=== PATIENT | female | born 1970 | race African-American/Black ===

== ENCOUNTER 2022-03-07 10:27 | Emergency (ER) | payer OTHER, SELFPAY ==
[2022-03-07 10:47] VITALS: BP 166/103; PULSE 99; RESP 16; TEMP 36.5; O2SAT 98; BMI 41.0
--- NOTE | 2022-03-07 11:12 | CRLHL7_ITS ---
For Patients: As a result of the Century Cures Act, medical imaging exams and procedure reports are released immediately into your electronic medical record. You may view this report before your referring provider. If you have questions, please contact your health care provider. INDICATION: Low-back pain. TECHNIQUE: Lumbar spine 3 view COMPARISON: Lumbar spine radiographs from 11/02/2020. FINDINGS: Bones: Alignment is normal. No fractures or significant bone lesions. Joints: Disc spaces and facets are unremarkable. Soft tissues: Unremarkable. IMPRESSION: Unremarkable lumbar spine. Dictated by Quinn Whitfield MD @ 03/07/2022 12:45:21 PM (Electronically Signed)
--- OUTSIDE RECORDS SUMMARY | 2022-03-07 11:20 | XMS_ITS | Encounter Summary ---
:1970 Author Organization [facility] Address [address] [place] [address] Care Team Providers Name Role Phone Chirag Metzger PA-C Primary Care Provider Reason for Visit Reason Comments PHONE CALL TO PATIENT Encounter Details Date Type Department Care Team Description 02/14/[address] [facility] [address], PHON E CALL TO PATIENT Rheumatology [facility] [address] [place] [address] [id number] (Wo rk) Social History Tobacco Use Types Packs/Day Years Used Date Smoking Tobacco: Never Smokeless Tobacco: Never Alcohol Use Standard Drinks/Week Comments Yes 3 (1 standard drink = 0.6 oz pure alcoho l) Sex Assigned at Date Recorded Not on file documented as of this encounter Nursing Notes Dafne Spangler LPN - 02/14/2019 10:04 AM CDT Patient called back and she wants to keep her appointment today with Zaira. Dafne Spangler LPN - 02/14/2019 9:16 AM CDT Left message to call back. Tracie Mukherjee, RN - 02/14/2019 8:56 AM CDT Left message for patient to call back, regarding appointment this afternoon in [place]. Please see letter written 02/13/[address] Lind documented in this encounter Plan of Treatment Not on filedocumented as of this encounter Visit Diagnoses Not on filedocumented in this encounter Care Teams Supervisor Chlorine Liquefaction Relationship Specialty Start Date End Date Chirag Metzger PA-C PCP - General Physician Utility System Repairer 07/06/[address] [place] [id number] documented as of this encounter
--- OUTSIDE RECORDS SUMMARY | 2022-03-07 11:20 | XMS_ITS | Clinical Summary ---
:1970 Author Organization [facility] Address [address] [place] [address] Care Team Providers Name Role Phone Chirag Metzger PA-C Primary Care Provider Source Comments You are receiving this document as you are listed as the primary care provider,follow-up provider, or the patient has been referred to you for consultation.This is in compliance with the Medicare and Medicaid EHR Incentive Program,which states Providers who transition their patient to another setting of careor provider of care or refers their patient to another provider of care shouldprovide summarycare record for each transition of care or referral. [x+1] Allergies No known active allergies Medications Medication Sig Dispensed Refills Start Date End Date Status hydrochlorothiazide 12.5 Indications: 2 07/07/2015 Active MG capsuleIndications: PN: CHASIDY UMAÑA CARRIE J Wed Mar CARRIE J Sun 10:44 AM Jul 21, 2015 Received from: External 10:44 AM Pharmacy Received from: External Pharmacy latanoprost (XALATAN) 1 Drop every 0 Active 0.005 % eye drop evening. solution COMBIGAN 0.2-0.5 % eye 99 09/01/2018 Active drop solution DULoxetine (CYMBALTA) 20 Take 2 Capsules 60 Capsule 0 02/15/20 19 Active MG capsuleIndications: by mouth daily. Chronic pain of left knee celecoxib (CELEBREX) 100 Take 1 Capsule 180 Capsule 0 02/15/20 19 Active MG capsule by mouth two times a day. lisinopril (ZESTRIL) 10 take one tablet 0 01/21/2021 Active MG tablet (10 MG) by mouth DAILY Take 1 tab in addition to already prescribed 10 mg; for a total of 30 mg per day cyclobenzaprine Take 10 mg by 0 01/21/2021 Active (FLEXERIL) 10 MG tablet mouth two times daily as needed. lidocaine (LIDODERM) 5 % Apply 1 Patch 0 02/16/2021 Active patch to skin daily. Leave on for up to 12 hours in a 24 hour period, then remove. gabapentin (NEURONTIN) Take 2 Capsules 540 Capsule 3 1 Active 300 MG capsule by mouth three times a day. Active Problems Problem Noted Date Chronic pain syndrome 10/23/2018 Fibromyalgia 10/23/2018 Chronic pain of left knee 10/23/2018 Low back pain, non-specific 10/26/2017 Segmental and somatic dysfunction of cervical region 0 07/14/2016 Segmental and somatic dysfunction of thoracic region 0 07/14/2016 Segmental and somatic dysfunction of sacral region Cervicalgia 07/14/2016 Pain in thoracic spine 07/14/2016 Endometriosis 07/06/2016 Primary open angle glaucoma of both eyes, mild stage 0 07/06/2016 Spasm of back muscles 04/03/2016 Obese 09/17/2013 Overview: Currently working with obesity clinic. Migraine, chronic, without aura, intractable, with sta tus migrainosus 09/20/2012 Last Assessment & Plan: Formatting of th is note might be different from the original. She has had a typical migraine, symptom- cole, but it has lasted since 01/23/2014. Does get better, but will recur within 24 hours when it goes away. She has a tightness across the top of her head and into her forehead, nausea, and light sensiti vity. She was seen at [facility] on 01/28/2014, and was given a shot of Toradol and an oral dose of ondansetron in the clinic. The ondansetron helped. Melissa edwards was discharged with Percocet and Predn isone. She took 1 dose of each, but stopped both because of increased nausea with the Percocet, and because she didn't understand the purpose of the Prednisone. S aj then, she has been resting as much as possible, wearing sunglasses to prevent glare, and taking her rizatriptan. Syncope, psychogenic Overview: stress reaction Last Assessment & Plan: Several years ago, she had pre-syncopal episodes that were concerning initially for stroke. She was admitted to the hospital and had lengthy and thorough neurologic exam. All was normal, and it was even tually determined that this was a stress reaction. She was medicated for stress and anxiety, and the episodes resolved completely. She has since weaned herself off the medications, and has not had recur rence. She has been certified to work on [employer] part-time due to this condition, and has paperwork from her previous clinic regarding this. She is currently unemployed, but looking for part-time work. Resolved Problems Problem Noted Date Resolved Date Pain in thoracic spine 07/14/2016 07/14/2016 Low back pain 07/14/2016 10/26/2017 Segmental and somatic dysfunction of cervical region 016 07/14/2016 Segmental and somatic dysfunction of thoracic region 016 07/14/2016 Segmental and somatic dysfunction of sacral region 6 07/14/2016 Cervicalgia 04/03/2016 07/14/2016 Headache 09/10/2015 04/03/2016 Cervical (neck) region somatic dysfunction 10/19/2014 04/03/2016 Overview: Epic Nonallopathic lesion of thoracic region 10/19/2014 04/03/2016 Overview: Epic Somatic dysfunction of sacral region 10/19/2014 Overview: Epic Cervicalgia 10/19/2014 04/03/2016 Spasm of muscle 10/19/2014 04/03/2016 Sprain of sacrum 08/12/2014 10/19/2014 Sprain of thoracic region 08/12/2014 10/19/2014 Sprain of neck 08/12/2014 10/19/2014 Nonallopathic lesion of thoracic region 02/20/2012 10/19/2014 Overview: Epic Nonallopathic lesion of cervical region 02/20/2012 10/19/2014 Overview: Epic ; Other nonallopathic lesion of cer vical region Spasm of muscle 02/20/2012 10/19/2014 Sciatica 02/20/2012 08/21/2012 Sciatica 12/07/2011 02/20/2012 Spasm of muscle 12/07/2011 02/20/2012 Nonallopathic lesion of sacral region 10/31/2011 Overview: Epic Sciatica 10/31/2011 12/07/2011 Spasm of muscle 10/31/2011 12/07/2011 Fibroid uterus 11/04/2014 Overview: s/p hysterectomy 2006 Immunizations Name Administration Dates Next Due Flu Vac (3+ yrs) 04/10/2000 Influenza IIV4 (Quadrivalent) 0.5mL 04/05/2017, 03/02/2015, 02/02/2015, ([id number]) 03/20/2014 Influenza, Unspecified Formulation 04/14/2016 (Deferred: Oth er), 03/04/2013 MMR 05/30/2013, 03/04/2013 Pfizer (Comirnaty) COVID-19, 12+ Yrs 06/22/2020, 06/01/2020 Purple Top TDAP (ADACEL) 08/17/2011 Td 05/20/1995 Tdap 08/17/2011 Family History Medical History Relation Name Comments Lupus Father Glaucoma Mother borderline Lupus Brother Lupus Sister 1 Rheumatoid arthritis Sister 1 Thyroid Disorder Sister 3 hypothyroidism Cancer Negative Family History Cancer, Colon Negative Family History Cancer, Endometrial Negative Family History Diethylstilbestrol Exposure Negative Family History Relation Name Status Comments Father Alive Mother Alive Brother Maternal Grandfather Maternal Grandmother Paternal Grandfather Paternal Grandmother Sister 1 Alive Sister 2 Alive Sister 3 Alive Social History Tobacco Use Types Packs/Day Years Used Date Smoking Tobacco: Never Smokeless Tobacco: Never Alcohol Use Standard Drinks/Week Comments Yes 3 (1 standard drink = 0.6 oz pure alcoho l) Sex Assigned at Date Recorded Not on file Last Filed Vital Signs Vital Sign Reading Time Taken Comments Blood Pressure 137/73 02/14/2019 3:53 PM CDT Pulse 74 02/14/2019 3:53 PM CDT Temperature 36.8 ??C (98.2 ??F) 11/26/2013 3:49 PM CDT Respiratory Rate 16 11/26/2013 3:49 PM CDT Oxygen Saturation 99% 11/26/2013 3:49 PM CDT Inhaled Oxygen Concentration - - Weight 96.2 kg (212 lb) 02/14/2019 3:53 PM CDT Height 156.2 cm (5' 1.5) 07/06/2016 8:17 AM CRAFT DEMONSTRATOR Body Mass Index 39.41 07/06/2016 8:17 AM CRAFT DEMONSTRATOR Plan of Treatment Health Maintenance Due Date Last Done Comments Colonoscopy 1970 Hep C Screening (Preventive 1970 Services) HepB (1) 1970 HIV Screening (Preventive 1985 Services) Adult Preventive Visit 03/06/2019 03/06/2018, 07/06/2016, 12/19/2000, Additional history exists Zoster/Shingles (1 of 2) 2019 Mammogram 03/20/2019 03/20/2018, 02/21/2017, 02/02/2016, Additional history exists COVID-19 Vaccine (3 - 08/17/2020 06/22/2020, 06/01/2020 Booster for Pfizer series) Pap 03/06/2021 03/06/2018, 01/13/2015, 02/13/2013, Additional history exists DTaP/Tdap/Td (2 - Tdap) 08/16/2021 08/17/2011, 08/17/2011, 05/20/1995 Influenza (#1) 2022 04/05/2017, 03/02/2015, 02/02/2015, Additional history exists Cholesterol 03/06/2023 03/06/2018, 07/06/2016, 01/13/2015, Additional history exists HepA Aged Out No longer eligib le based on patient 's age to complete this topic Hib Aged Out No longer eligib le based on patient 's age to complete this topic IPV (Polio) Aged Out No longer eligib le based on patient 's age to complete this topic MCV4 Aged Out No longer eligib le based on patient 's age to complete this topic Pneumococcal Aged Out No longer eligib le based on patient 's age to complete this topic Insurance Payer Benefit Plan / Subscriber ID Effective Phone Address T ype Group Dates PREFERREDONE PREFERREDONE [id number] 2015-[facility] [phone] OPEN ACCESS ent [id number] [address]BDI [place] [address] [place] Personal/Family Self [address] (Home) W [phone] [place] (Work) [phone] Yesika Wardnda Workers Comp Self [id number] (Home) [place] [address] [place] Non-Covered/Pre Self [phone] (Home) [place] [address] Care Teams Hospice Educator Relationship Specialty Start Date End Date Chirag Metzger PA-C PCP - General Physician Health Lead 07/06/16 [address] [place] [address]
--- OUTSIDE RECORDS SUMMARY | 2022-03-07 11:20 | XMS_ITS | Encounter Summary ---
:1970 Author Organization [employer] Address [address] [place] [address] Care Team Providers Name Role Phone Chirag Metzger PA-C Primary Care Provider Reason for Visit Procedure/Equipment (Routine) - Incomplete Specialty Diagnoses / Procedures Referred By Contact Refer red To Contact Diagnoses Visit for screening mammogram Simona Mendez PA-C Procedures MM Mammogram Screening Bilat [address] CAD [address] [place] [address] Referral ID Status Reason Start Date Expiration Date Visits V isits Requested Authorized [id number] Incomplete 12/04/2018 03/04/2020 1 1 Encounter Details Date Type Department Care Team Description 03/28/2019 Ancillary Procedure [facility]essa, Visit fo r screening Mammography Services Simona Redmond PA-C mammogram [address] [place] [address] W [phone] [place] [address] Social History Tobacco Use Types Packs/Day Years Used Date Smoking Tobacco: Never Smokeless Tobacco: Never Alcohol Use Standard Drinks/Week Comments Yes 3 (1 standard drink = 0.6 oz pure alcoho l) Sex Assigned at Date Recorded Not on file documented as of this encounter Plan of Treatment Not on filedocumented as of this encounter Visit Diagnoses Diagnosis Visit for screening mammogram Other screening mammogram documented in this encounter Care Teams Pilot Teacher Relationship Specialty Start Date End Date Chirag Metzger PA-C PCP - General Physician Orthodontic Assistant 07/06/16 [address] [place], [place] [address] documented as of this encounter
--- OUTSIDE RECORDS SUMMARY | 2022-03-07 11:20 | XMS_ITS | Encounter Summary ---
:1970 Author Organization [employer] Address [address] [place] [address] Care Team Providers Name Role Phone Chirag Metzger PA-C Primary Care Provider Reason for Referral (Routine) - New Request Specialty Diagnoses / Procedures Referred By Contact Refer red To Contact Diagnoses Effusion of right knee Bob Lind MD Procedures Triamcinolone Acet Inj Nos: (per 10 mg) [address] [place], [place] [address] Referral ID Status Reason Start Date Expiration Date Visits V isits Requested Authorized [id number] New Request 02/16/2021 05/18/2022 1 1 Procedure/Equipment (Routine) - Incomplete Specialty Diagnoses / Procedures Referred By Contact Refer red To Contact Diagnoses Effusion of right knee Bilateral chronic knee pain Bob Lind MD Procedures MR Knee Rt WO IV Cont [address] [place], [place] [address] Referral ID Status Reason Start Date Expiration Date Visits V isits Requested Authorized [id number] Incomplete 02/16/2021 08/15/2021 1 1 Procedure/Equipment (Routine) - Incomplete Specialty Diagnoses / Procedures Referred By Contact Refer red To Contact Diagnoses Bilateral chronic knee pain Bob Lind MD Procedures MR Knee Lt WO IV Cont [address] [facility] [place], [place] [address] Referral ID Status Reason Start Date Expiration Date Visits V isits Requested Authorized [id number] Incomplete 02/16/2021 08/15/2021 1 1 Reason for Visit Reason Comments Follow-up Encounter Details Date Type Department Care Team Description 02/16/2021 Office Visit [facility] Bob Lind M D Effusion of right knee (Primary Dx); Rheumatology [address] [facility] Bilateral chronic knee pain; [address] [facility] Fibromyalgia; [place] [address] [place], [place] FELIPE positive; [phone] Elevated C-reactive protein (CRP) [phone] (Wo rk) Social History Tobacco Use Types Packs/Day Years Used Date Smoking Tobacco: Never Smokeless Tobacco: Never Alcohol Use Standard Drinks/Week Comments Yes 3 (1 standard drink = 0.6 oz pure alcoho l) Sex Assigned at Date Recorded Not on file documented as of this encounter Patient Instructions Patient InstructionsBob Lind MD - 02/16/2021 12:15 PM CDT The fluid from the right knee is clear - meaning you can read through it. I will send it for cellcount and crystals, we determine # of white blood cells/uL in the fluid. < 2000 WBC/uL = NOT inflamed; I suspect yours will be < 500. Lupus or other rheumatic disease would be > 2000 WBC/uL. The outside labs show weak positive FELIPE, but all the confirmatory lupus tests are negative; I don't think you have lupus or similar disease; common to see FELIPE positive in relatives of people with lupus. Clear non-inflammatory fluid suggests some wear and process in the knee; Could be cartilage wear = osteoarthritis; could be meniscus tear; MRI should show. If some mild osteoarthritis, treatment is celebrex, cortisone max every 3 months, and lower impact exercise. If meniscus tear, may need surgery. documented in this encounter Progress Notes Bob Lind MD - 02/16/2021 12:15 PM CDT RHEUMATOLOGY RECHECK This note was generated with voice activated career center advisor software and may contain typographical and word substitution errors. CC: Knee issues, right greater than left knee pain, possible swelling right knee HPI: I had seen her in October,. She was felt to have fibromyalgia and chronic left knee pain following surgery. I did not feel she had an underlying rheumatic disease or inflammatory condition, FELIPE, rheumatoid factor, CRP were all normal. She had chronic left knee pain following surgery to remove a ganglion. Shewas on gabapentin and analgesics, I suggested possibly trying Cymbalta. I also recommended followingup with [facility], she was on opioids at the time. There was a history of an arthroscopy on the left knee in the past done because of periarticular ganglion cyst. She had background history of mechanical back pain, left shoulder impingement. Fluid had been aspirated from the knee and was straw-colored. Her primary care I believe was at [facility], Simona Mendez PA-C. The patient brought with her some records, to was an office note from February 03, she was seen in urgent care with right knee swelling in the suprapatellar area started about 2 weeks prior. She hadsimilar symptoms in the past on the left knee. She is on Cymbalta, Celebrex, gabapentin.. The nurse practitioner who saw her in urgent care was worried about possible autoimmune etiology, felt there was some swelling along the suprapatellar aspect, gave her a Medrol Dosepak. She had a similar urgent care visit in October with bilateral knee pain and some right leg sciatica, was given Medrol Dosepak at that time as well. Laboratory testing done February 03, 2021 shows sedimentation rate of 10, normal CBC, C reactive protein mildly elevated at 1.8 with normal less than 1, vitamin-D slightly low at 28. ALT, AST, creatinine were normal, rheumatoid factor was negative, she had a low titer FELIPE 1:16 a.m. 0, speckle pattern, SSA, Nguyen, Scl 70, chromatin antibody, MEDICAL DETAIL REPRESENTATIVE, double-stranded DNA were all negative. By her report, x-rays were done at urgent care apparently read as negative. We further reviewed her history. Going on for a few weeks, she has had pain in the right knee, it feels somewhat tight, slightly hard to flex. She can get sharp pains with certain bending movements or pivoting. The knee has not given way. She has not had fevers or chills. She indicates Medrol Dosepakshave helped maybe 50%. She does have a sister and brother who have lupus, sounds like cutaneous manifestations. 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 FH: Has a sister and brother with lupus (cutaneous, alopecia). PMH: Updated in EMR MEDS: Updated in EMR but notable for: Duloxetine, gabapentin, oxycodone ADR/ALLERGIES: Updated in EMR PAIN/RAPID3: OBJECTIVE: VS: Per flow sheet. General: NAD. Eyes: Externally clear. Chest: CTA Heart: RRR, no m/r/g Musculoskeletal: All 4 limbs are examined. No visibly swollen or tender joints over the hands wristselbows shoulders hips. She had a ballotable patella on the right. She had mild discomfort with rangeof motion the right knee, slight warmth on the right knee compared to the left. No obvious ligamentous instability. Ankles and feet were unremarkable. She did have a number of myofascial tender points,left lateral epicondyle, rhomboid muscles, gluteal muscles, left medial knee ASSESSMENT: 1: History of fibromyalgia 2: History of left knee pain following arthroscopy for ganglion cyst 3: Subacute right knee pain with mild swelling 4: Mildly positive FELIPE but negative extractable nuclear antigens and double- stranded DNA antibody 5: Mildly elevated C reactive protein (likely related to obesity), normal sed rate PLAN: 1: Discussed with the patient. She has a complex history of knee pain and several years ago etiologyof her left knee pain was undetermined, MRI was negative 2: She has concern about autoimmune etiology of her knee pain given several family members with lupus. She does have a positive FELIPE but her confirmatory tests are all negative. The mildly elevated C reactive protein is likely from obesity and a normal sedimentation rate is reassuring. 3: She did appear to have a right knee effusion. I suggested aspiration and injection. She was willing to proceed and after verbal consent sterile prep, the right knee was anesthetized with 1% lidocaine. I then placed a 20 gauge needle into the joint and I was able aspirate 10 cc of yellow clear synovial fluid. I sent this for cell count, crystals and Lyme PCR. Lyme disease is felt to be very unlikely given the unclear nature of the fluid. I explained the patient that if the white cell count on the fluid is less than 2000 her microliter, that would suggest noninflammatory process and the clarity ofthe fluid would suggest this is likely to be the case. I will send the patient a letter with the fluid results. While I had the needle in the joint, I did inject 60 mg of triamcinolone hopefully for some symptomatic relief. 4: Ultimately, I suspect the knee fluid is related to some degenerative process in her right knee, could be early osteoarthritis or meniscal tear. I have given her orders for MRI of the knees. She feels she may need to do these through [facility]. By her report x-rays were negative and [facility]. I put my fax number on the MRI requests so I can receive a report. If degenerative process is confirmed, the patient would be asked to follow-up with orthopedics and she would probably do that through [facility]. Simona Mendez PA-C, [facility] [place]. Total time 45 minutes, excluding time for aspiration and injection of right knee. documented in this encounter Plan of Treatment Not on filedocumented as of this encounter Procedures Procedure Name Priority Date/Time Associated Comments Diagnosis BODY FLUID CELL COUNT Routine 02/16/2021 1:02 PM Effusion of r ight Results for this AND DIFFERENTIAL CDT knee procedure a re in the results section. BODY FLUID, Routine 02/16/2021 1:02 PM Effusion of right Resu lts for this DIFFERENTIAL CDT knee procedure are i n the results section. BORRELIA BURGDORFERI Routine 02/16/2021 1:02 PM Effusion of ri ght Results for this (LYME DISEASE) CDT knee procedure are in the results section. CRYSTALS,SYNOVIAL Routine 02/16/2021 1:02 PM Effusion of right Results for this CDT knee procedure are i n the results section. CELL COUNT & DIFF, Routine 02/16/2021 1:02 PM Effusion of righ t Results for this BODY FLUID CDT knee procedure are i n the results section. documented in this encounter Results Body Fluid, Differential (02/16/2021 1:02 PM CDT) P athologist Signature Body Fluid 1 % 02/16/2021 [facility] Neutrophils % 6:13 PM CDT LABORATORY Body Fluid 85 % 02/16/2021 [facility] Lymphocytes % 6:13 PM CDT LABORATORY Body Fluid 14 % 02/16/2021 [facility] Mononuclear 6:13 PM CDT LABORATORY Cells % TOTAL CELLS 100 02/16/2021 [facility] COUNTED IN BODY 6:13 PM CDT LABORATORY FLUID Specimen Anatomical Collection Method Collection Time Receive d Time (Source) Location / / Volume Laterality Synovial Fluid ENTIRE KNEE REGION 02/16/2021 1:02 PM 0 02/16/2021 1:38 / Unknown CDT PM CDT Bob Lind MD LAB_1 Performing Organization Address City/[facility] Phon e Number [facility] [address] [place] [address] (ABNORMAL) Cell Count, Body Fluid (02/16/2021 1:02 PM CDT) Patholo gist Method Time Signature Body Fluid Synovial 02/16/2021 [facility] Type Fluid 6:13 PM CDT LABORATORY BF Source Knee, right 02/16/2021 [facility] 6:13 PM CDT LABORATORY Body Fluid Clear Clear 02/16/2021 [facility] Appearance 6:13 PM CDT LABORATORY Body Fluid RBC <=2,000 /uL 02/16/2021 [facility] 6:13 PM CDT LABORATORY Comment: The reference interval is unava ilable for this body fluid. Comparison of the result with concentration in the blood i s recommended. Body Fluid WBC 483 (H) 0 - 200 /ul 02/16/2021 6:13 PM CDT [facility] Specimen Anatomical Collection Method Collection Time Receive d Time (Source) Location / / Volume Laterality Synovial Fluid ENTIRE KNEE REGION 02/16/2021 1:02 PM 0 02/16/2021 1:38 / Unknown CDT PM CDT Bob Lind MD LAB_1 Performing Organization Address City/[facility] Code Phon e Number [facility] [address] [place] [address] LYPCR - Borrelia Burgdorferi (Lyme Disease) (02/16/2021 1:02 PM CDT) [facility] Method Time Signature Lyme By PCR Not Detected 02/19/2021 [facility] 11:23 AM CDT LABORATORIES Comment: NOT DETECTED - A negative result does no t rule out the presence of PCR inhibitors in the patien t specimen or assay specific nucleic acid in concentra tions below the level of detection by the assay. Blood and CSF specimens have poor clinic al sensitivity for detection of Borrelia burgdorferi by PCR . INTERPRETIVE INFORMATION: Borrelia Speci es DNA Detection by PCR This test was developed and its performa nce characteristics determined by [facility]. It has not been cleared or approved by the [place] Food and Drug Adminis tration. This test was performed in a CLIA certified laboratory and is intended for clinical purposes. Performed by [facility], [address] [place] [address] [email or web address], Lakeshia Mtz MD, [place] b. Director Lyme Source Synovial fluid 02/19/2021 11:23 AM CDT [facility] Specimen Anatomical Collection Method Collection Time Receive d Time (Source) Location / / Volume Laterality Synovial Fluid 02/16/2021 1:02 PM 021 1:38 CDT PM CDT Bob Lind MD LAB_1 Performing Organization Address City/[facility]/ZIP Code Phon e Number [facility] [address] [place], [place] [phone] SYCRY - Synovial Fluid Crystals (02/16/2021 1:02 PM CDT) [facility] Method Time Signature Synovial Knee, right 02/16/2021 [facility] Source 7:02 PM CDT LABORATORY Crystals, No Crystals No Crystals 02/16/2021 [facility] Synovial Seen Seen 7:02 PM CDT LABORATORY Specimen Anatomical Collection Method Collection Time Receive d Time (Source) Location / / Volume Laterality Synovial Fluid ENTIRE KNEE REGION 02/16/2021 1:02 PM 0 02/16/2021 1:38 / Unknown CDT PM CDT Bob Lind MD LAB_1 Performing Organization Address City/State/ZIP Code Phon e Number [facility] [address] [place] [address] documented in this encounter Visit Diagnoses Diagnosis Effusion of right knee - Primary Effusion of lower leg joint Bilateral chronic knee pain Pain in joint, lower leg Fibromyalgia Mylagia and myositis, unspecified FELIPE positive Other and unspecified nonspecific immuno logical findings Elevated C-reactive protein (CRP) documented in this encounter Care Teams Display Maker Relationship Specialty Start Date End Date Chirag Metzger PA-C PCP - General Physician Retail Client Manager 07/06/16 [address] [place] [phone] documented as of this encounter
--- OUTSIDE RECORDS SUMMARY | 2022-03-07 11:20 | XMS_ITS | Encounter Summary ---
:1970 Author Organization [employer] Address [address] [place] [address] Care Team Providers Name Role Phone Chirag Metzger PA-C Primary Care Provider Encounter Details Date Type Department Care Team Description 02/14/2019 Lab Visit [facility] Polyarthralgia [address] [place] [address] Social History Tobacco Use Types Packs/Day Years Used Date Smoking Tobacco: Never Smokeless Tobacco: Never Alcohol Use Standard Drinks/Week Comments Yes 3 (1 standard drink = 0.6 oz pure alcoho l) Sex Assigned at Date Recorded Not on file documented as of this encounter Plan of Treatment Not on filedocumented as of this encounter Procedures Procedure Name Priority Date/Time Associated Diagnosis Comme nts EXTRACTABLE NUCLEAR Routine 02/14/2019 4:59 PM Polyarthralgia Results for this ANTIGEN ANTIBODIES CDT procedure are in the results section. ANTI-CCP AB Routine 02/14/2019 4:59 PM Polyarthralgia Results for this CDT procedure are i n the results section. DNA DOUBLE STRANDED Routine 02/14/2019 4:59 PM Polyarthralgia Results for this ANTIBODY CDT procedure are i n the results section. C4 COMPLEMENT Routine 02/14/2019 4:59 PM Polyarthralgia Result s for this CDT procedure are i n the results section. C3 COMPLEMENT Routine 02/14/2019 4:59 PM Polyarthralgia Result s for this CDT procedure are i n the results section. documented in this encounter Results Extractable Nuclear Antigen Antibodies (02/14/2019 4:59 PM CDT) athologist Signature NGUYEN/SPEECH AND LANGUAGE ASSISTANT 1 0 - 40 02/16/2019 [facility] (AGUILA) Ab, IGG AU/mL 4:12 PM CDT LABORATORIES Comment: INTERPRETIVE INFORMATION: Nguyen/SPEECH AND LANGUAGE ASSISTANT (AGUILA ) Antibody, IgG ??29 AU/mL or Less ............. Negati ve ??30 - 40 AU/mL ................ Equivo zenaida ??41 AU/mL or Greater .......... Positi ve Nguyen/SPEECH AND LANGUAGE ASSISTANT antibodies are frequently seen in patients with mixed connective tissue disease (MCTD) and are also associated with other systemic autoimmune rheumatic dise ases (SARDs) such as systemic lupus erythematosus (SLE), syst emic sclerosis, and myositis. Antibodies targeting the Nguyen /SPEECH AND LANGUAGE ASSISTANT antigenic complex also recognize Nguyen antigens, therefore , the Nguyen antibody response must be considered when interpr eting these results. Performed by [facility], [address] [place] [address] [email or web address], Crow Duran MD, Lab. Director AGUILA To Nguyen (Sm) 0 0 - 40 AU/mL 02/16/2019 4:12 PM CDT [facility] Antibody Comment: INTERPRETIVE INFORMATION: Nguyen (AGUILA) An tibody, IgG ??29 AU/mL or Less ............. Negati ve ??30 - 40 AU/mL ................ Equivo zenaida ??41 AU/mL or Greater .......... Positi ve Nguyen antibody is highly specific (great er than 90 percent) for systemic lupus erythematosus (SLE) but o nly occurs in 30-35 percent of SLE cases. The presence of an tibodies to Nguyen has variable associations with SLE clinical manifestations. SSA -52 (RO52) ANTIBODY, 0 0 - 40 AU/mL 9 4:12 PM CDT [facility] IGG (AGUILA) Comment: INTERPRETIVE INFORMATION: SSA-52 (Ro52) (AGUILA) Antibody, IgG ??29 AU/mL or Less ............. Negati ve ??30 - 40 AU/mL ................ Equivo zenaida ??41 AU/mL or Greater .......... Positi ve SSA-52 (Ro52) and/or SSA-60 (Ro60) antib odies are associated with a diagnosis of Sjogren syndrome, systemi c lupus erythematosus (SLE), and systemic sclerosis. SSA-52 an tibody overlaps significantly with the major SSc-related antibodies. SSA-52 (Ro52) antibody occurs frequently in patients w ith inflammatory myopathies, often in the presence of int erstitial lung disease. SSB (La) Antibody, IgG 0 0 - 40 AU/mL 02/16/2019 4:1 2 PM CDT [facility] [facility] (AGUILA) Comment: INTERPRETIVE INFORMATION: SSB (La) (AGUILA) Ab, IgG ??29 AU/mL or Less ............. Negati ve ??30 - 40 AU/mL ................ Equivo zenaida ??41 AU/mL or Greater .......... Positi ve SSB (La) antibody is seen in 50-60% of S jogren syndrome cases and is specific if it is the only AGUILA antibo dy present. 15-25% of patients with systemic lupus erythematos us (SLE) and 5-10% of patients with progressive systemic scler osis (PSS) also have this antibody. SSA-60 (RO60) ANTIBODY, 0 0 - 40 AU/mL 02/16/2019 4:12 PM CDT [facility] IGG (AGUILA) Comment: REFERENCE INTERVAL: SSA-60 (Ro60) (AGUILA) Antibody, IgG ??29 AU/mL or Less ............. Negati ve ??30 - 40 AU/mL ................ Equivo zenaida ??41 AU/mL or Greater .......... Positi ve Specimen Anatomical Collection Method / Collection Time Recei steven Time (Source) Location / Volume Laterality Blood Venipuncture / 02/14/2019 4:59 02/14/2019 4:59 Unknown PM CDT PM CDT Zaira Ortiz PA-C LAB_1 Performing Organization Address City/State/ZIP Code Phon e Number [facility] [address] [place], [place] [id number] CCPIG - Cyclic Citrullinated Peptide AB (02/14/2019 4:59 PM CDT) [facility] Method Time Signature Anti-CCP Antibody 1 <7 U/mL 02/17/2019 [facility] 12:57 PM CENTRAL LAB CDT Anti-CCP Antibody Negative Negative 02/17/2019 [facility] Interpretation 12:57 PM CENTRAL LAB CDT Specimen Anatomical Collection Method / Collection Time Recei steven Time (Source) Location / Volume Laterality Blood Venipuncture / 02/14/2019 4:59 02/14/2019 4:59 Unknown PM CDT PM CDT Zaira Ortiz PA-C LAB_1 Performing Organization Address City/[facility]/ZIP Code Phon e Number [facility] CENTRAL LAB [address] [address] DNA - Anti-dsDNA Antibody (02/14/2019 4:59 PM CDT) [facility] Method Time Signature Anti-DNA Ab <1:10 <1:10 02/17/2019 [facility] 10:51 AM LABORATORY CDT Anti-DNA Antibody Negative Negative 02/17/2019 [facility] Interpretation 10:51 AM LABORATORY CDT Specimen Anatomical Collection Method / Collection Time Recei steven Time (Source) Location / Volume Laterality Blood Venipuncture / 02/14/2019 4:59 02/14/2019 4:59 Unknown PM CDT PM CDT Zaira Ortiz PA-C LAB_1 Performing Organization Address City/State/ZIP Code Phon e Number [facility] [address] [place] [address] C4 - C4 Complement (02/14/2019 4:59 PM CDT) athologist Signature C4 Complement 51.0 15.0 - 02/14/2019 [facility] 57.0 mg/dL 9:30 PM CDT LABORATORY Specimen Anatomical Collection Method / Collection Time Recei steven Time (Source) Location / Volume Laterality Blood Venipuncture / 02/14/2019 4:59 02/14/2019 4:59 Unknown PM CDT PM CDT Zaira Ortiz PA-C LAB_1 Performing Organization Address [facility] Phon e Number [facility] [address] [place] [address] C3 - C3 Complement (02/14/2019 4:59 PM CDT) P athologist Signature C3 Complement 158 83 - 193 02/14/2019 [facility] mg/dL 9:30 PM CDT LABORATORY Specimen Anatomical Collection Method / Collection Time Recei steven Time (Source) Location / Volume Laterality Blood Venipuncture / 02/14/2019 4:59 02/14/2019 4:59 Unknown PM CDT PM CDT Zaira Ortiz PA-C LAB_1 Performing Organization Address City/[facility] Phon e Number [facility] [address] [place] [address] documented in this encounter Visit Diagnoses Diagnosis Polyarthralgia Pain in joint, multiple sites documented in this encounter Care Teams Position Classification Specialist Relationship Specialty Start Date End Date Chirag Metzger PA-C PCP - General Physician [employer] Clerk 07/06/[address] [place] [address] documented as of this encounter
--- OUTSIDE RECORDS SUMMARY | 2022-03-07 11:20 | XMS_ITS | Encounter Summary ---
:1970 Author Organization [employer] Address [address] [place] [address] Care Team Providers Name Role Phone Chirag Metzger PA-C Primary Care Provider Reason for Visit Reason Comments NECK PAIN BACK PAIN BACK PAIN, LOW Encounter Details Date Type Department Care Team Description 06/19/2019 Office Visit [facility], Segmental and somatic dysfun ction of cervical region; [address] Enoc Lazaro DC Segmental and somatic dysfun ction of thoracic region; [place] [address] Segmental and somatic dysfun ction of sacral region; [phone] Cervical pain ( neck); Acute thoracic back pain, unspecified back pain laterality; Low back pain, non-specific Social History Tobacco Use Types Packs/Day Years Used Date Smoking Tobacco: Never Smokeless Tobacco: Never Alcohol Use Standard Drinks/Week Comments Yes 3 (1 standard drink = 0.6 oz pure alcoho l) Sex Assigned at Date Recorded Not on file documented as of this encounter Progress Notes Enoc Blanca DC - 06/19/2019 1:45 PM CST Marla Cuellar is 49 y.o.female here for Chief Complaint Patient presents with ??? NECK PAIN ??? BACK PAIN ??? BACK PAIN, LOW Onset of neck pain with headaches, mid back and low back pain that started last week. Flare of pain.Not currently seeing other providers for this condition. Review of systems: Denies numbness, tingling, or weakness in the extremities. Denies change in bowel/bladder function. Past medical, surgical, social, and family history has been reviewed. Objective: There were no vitals taken for this visit. Estimated body mass index is 39.41 kg/m?? as calculated from the following: Height as of 07/06/16: 5' 1.5 (1.562 m). Weight as of 02/14/19: 212 lb (96.2 kg). Inspection: No bruising, swelling, erythema is seen. Patient is alert and oriented. Soft Tissue: Mild to moderate hypertonicity/muscle spasm and tenderness is noted in the sacroiliac, thoracic and cervical paraspinal muscles. Range of Motion: Decreased with right sided thoracic pain upon flexion, extension and right rotation. Ortho/Neuro: Misalignment/Malpositions: Hypomobility/misalignment was noted in the sacroiliac, T9-T10, C2-C3 withmotion and static palpation. Assessment: 1. Segmental and somatic dysfunction of cervical region 2. Segmental and somatic dysfunction of thoracic region 3. Segmental and somatic dysfunction of sacral region 4. Cervical pain (neck) 5. Acute thoracic back pain, unspecified back pain laterality (HRC) 6. Low back pain, non-specific (HRC) Plan: Diagnostic plan: No further testing/evaluation at this time. Therapeutic plan: Patient consented to care. Manipulative therapy was applied to the sacroiliac, thoracic and cervical regions. Trigger point therapy was applied to the soft tissue in the lumbar, sacroiliac and hip regions for 8-9 minutes. Patient tolerated treatment well. Goals: Resolve current complaints. Treatment plan: 2-4 treatments Educational plan: PIRIFORMIS EXERCISES: 3 REPETITIONS @ 30 SECONDS/2-3 TIMES PER DAY TO IMPROVE FLEXIBILITY/FUNCTIO, DECREASE PAIN AND REHABILITATE THE LUMBOSACRAL AND HIP REGIONS. THORACIC EXTENSION EXERCISES: 5 REPETITIONS/2-3MTIMES PER DAY TO IMPROVE FLEXIBILITY/FUNCTION, DECREASE PAIN AND REHABILITATE THE THORACIC REGIONS. HOME ICE THERAPY. 20 MINUTES ON, 20 MINUTES OFF 2 - 3 TIMES PER DAY. Enoc Blanca DC ER STRAIGHTENED documented in this encounter Plan of Treatment Not on filedocumented as of this encounter Visit Diagnoses Diagnosis Segmental and somatic dysfunction of cer vical region Nonallopathic lesion of cervical region, not elsewhere classified Segmental and somatic dysfunction of tho racic region Nonallopathic lesion of thoracic region, not elsewhere classified Segmental and somatic dysfunction of sac ral region Nonallopathic lesion of sacral region, n ot elsewhere classified Cervical pain (neck) Cervicalgia Acute thoracic back pain, unspecified ba ck pain laterality (HRC) Low back pain, non-specific documented in this encounter Care Teams Materials Inspector Relationship Specialty Start Date End Date Chirag Mtezger PA-C PCP - General Physician Manager Business 07/06/16 [address] [place] [address] documented as of this encounter
--- OUTSIDE RECORDS SUMMARY | 2022-03-07 11:20 | XMS_ITS | Encounter Summary ---
:1970 Author Organization [employer] Address [address] [place] [address] Care Team Providers Name Role Phone Chirag Metzger PA-C Primary Care Provider Reason for Visit Reason Comments Refill IBU 800 MG tablet [Pharmacy Med Name: IBU Oral Tablet 800 MG] Encounter Details Date Type Department Care Team Description 04/20/2019 Refill Chirag Chopra PA-C Refill (IBU [address] tablet [[place] [address] [place] [address] Name: IBU Oral Tablet [id number] (Wo rk) 800 MG]) Social History Tobacco Use Types Packs/Day Years Used Date Smoking Tobacco: Never Smokeless Tobacco: Never Alcohol Use Standard Drinks/Week Comments Yes 3 (1 standard drink = 0.6 oz pure alcoho l) Sex Assigned at Date Recorded Not on file documented as of this encounter Nursing Notes Chinyere Zazueta LPN - 04/24/2019 2:19 PM CST Called pt- she is taking both ibuprofen and Celebrex. Instructed her to stop taking the ibuprofen asshe would like to continue Celebrex. Disregard refill request. Pt verbalized understanding that she is not to be taking other anti- inflammatories with Celebrex. FYI sent to PCP and medical front desk specialist. IOLOGY ASSOCIATE Chirag Metzger PA-C - 04/24/2019 2:05 PM CST It appears that her medical front desk specialist had given her Celebrex prescription in January and asked her tostop other anti-inflammatories. She had sent in a refill request for the Celebrex earlier this week.Should not be taking both ibuprofen and Celebrex. Which one would she like prescription for? IOLOGY ASSOCIATE Nilam Acosta RN - 04/24/2019 9:15 AM CST Clinician Action: New Order Medication Clinician Next Step: Review associated dx/order for accuracy and sign pended orders, if appropriate and Patient IS expecting a call back from care team Specific Request(s): 1. Called pt. States she has been taking ibuprofen in addition to oxycodone and gabapentin as needed. Last refill was 03/06/2018 and discontinued by Rheumatology on 10/23/2018. Pt requests Rx to be faxedto pharmacy. Please notify when faxed. Requested Prescriptions Pending Prescriptions Disp Refills ??? IBU 800 MG tablet [Pharmacy Med Name: IBU Oral Tablet 800 MG] 45 Tablet Sig: Take 1 Tablet by mouth three times a day as needed for Pain. IOLOGY ASSOCIATE Ryanne Ward RN - 04/22/2019 3:29 PM CST Further Assistance Needed on Refill from Nursing/Triage Requested medication was discontinued Next steps: Nursing/Triage to complete refill as appropriate. Requested Prescriptions Pending Prescriptions Disp Refills ??? IBU 800 MG tablet [Pharmacy Med Name: IBU Oral Tablet 800 MG] 45 Tablet Sig: Take 1 Tablet by mouth three times a day as needed for Pain. IOLOGY ASSOCIATE Micaela, Candis Surescripts Prov Query - 04/20/2019 2:48 PM CST IBU 800 MG tablet [Pharmacy Med Name: IBU Oral Tablet 800 MG] Medication started: 03/04/2014 Last ordered by CHIRAG METZGER: 03/06/2018 (410 days ago) QTY: 45, Refills: 1, Sig: take 1 tablet by mouth three times a day as needed for pain. (unchanged) -> This medication was discontinued on 10/23/2018 by PHILIP GILMAN -> Refill x 3 months (courtesy refill. overdue for an office visit) -> Calculate quantity and refills manually. They could not be estimated due to missing or unreadable information. Last qualifying visit: 03/06/2018 (with CHIRAG METZGER) Next scheduled visit: None SBP: 132 mm Hg on 03/06/2018 DBP: 82 mm Hg on 03/06/2018 Cr: 0.8 mg/dL on 03/06/2018 PLT: 321 k/cmm on 03/06/2018 HGB: 13 g/dL on 03/06/2018 RBC: 4.45 m/cmm on 03/06/2018 RDW: 11.8 % on 03/06/2018 Hematocrit: 39.7 % on 03/06/2018 White Blood Cell Count: 7.7 k/cmm on 03/06/2018 Powered by Network, Reference: [id number], 04/20/2019 2:48:29 PM Titus PELLETIER: DAVID REFILL ([id number]) IOLOGY ASSOCIATE documented in this encounter Plan of Treatment Not on filedocumented as of this encounter Visit Diagnoses Diagnosis Rectal pain, chronic Anal or rectal pain Chronic pelvic pain in female Unspecified symptom associated with fema le genital organs Spasm of back muscles Other symptoms referable to back Segmental and somatic dysfunction of cer vical region Nonallopathic lesion of cervical region, not elsewhere classified Segmental and somatic dysfunction of tho racic region Nonallopathic lesion of thoracic region, not elsewhere classified Segmental and somatic dysfunction of sac ral region Nonallopathic lesion of sacral region, n ot elsewhere classified documented in this encounter Care Teams Electroencephalograph Technician Relationship Specialty Start Date End Date Chirag Metzger PA-C PCP - General Physician Mens Locker Room Attendant 07/06/[address] [place] [id number] documented as of this encounter
--- OUTSIDE RECORDS SUMMARY | 2022-03-07 11:20 | XMS_ITS | Encounter Summary ---
:1970 Author Organization [employer] Address [address] [place] [address] Care Team Providers Name Role Phone Chirag Metzger PA-C Primary Care Provider Reason for Visit Reason Comments Refill Encounter Details Date Type Department Care Team Description 04/21/2019 Refill [facility] Zaira Anthony PA-C Refill [address] [place], [place] [id number] [place] [address] [phone] (Wo rk) Social History Tobacco Use Types Packs/Day Years Used Date Smoking Tobacco: Never Smokeless Tobacco: Never Alcohol Use Standard Drinks/Week Comments Yes 3 (1 standard drink = 0.6 oz pure alcoho l) Sex Assigned at Date Recorded Not on file documented as of this encounter Nursing Notes Carla Edmondson RN - 04/22/2019 10:34 AM CST LV 02-14-2019 [facility] None Last CBC and CREAT 03-06-2018 Nurse verified standing lab orders Nurse spoke with patient and gave her the message from Zaira Ortiz. Patient has decided to have her PCP address the refill request for Celebrex Denied per patients request ETING SALES REPRESENTATIVE documented in this encounter Plan of Treatment Not on filedocumented as of this encounter Visit Diagnoses Not on filedocumented in this encounter Care Teams Nursing Tech Relationship Specialty Start Date End Date Chirag Metzger PA-C PCP - General Physician Cutter First 07/06/[address] [place] [address] [id number] documented as of this encounter
--- OUTSIDE RECORDS SUMMARY | 2022-03-07 11:20 | XMS_ITS | Encounter Summary ---
:1970 Author Organization [employer] Address [address] [place] [address] Care Team Providers Name Role Phone Chirag Metzger PA-C Primary Care Provider Reason for Visit Reason Comments Future Appointments Encounter Details Date Type Department Care Team Description 03/24/2019 [facility]phone [facility] [address], Future Appointments Ophthalmology Clinic [address] [place] [address] [place], [place] [phone] (Wo rk) Social History Tobacco Use Types Packs/Day Years Used Date Smoking Tobacco: Never Smokeless Tobacco: Never Alcohol Use Standard Drinks/Week Comments Yes 3 (1 standard drink = 0.6 oz pure alcoho l) Sex Assigned at Date Recorded Not on file documented as of this encounter Nursing Notes Thien Vega - 03/24/2019 2:43 PM CST Pt wanted to see someone who specializes in glaucoma only, with Dr Cruz out she was referred to [facility]. T SUPERVISOR Herson Granados - 03/24/2019 1:42 PM CST Appointments - Same Day / Future Patient would like appointment with: Any Provider Encounter Clinician: Cinda Dumont MD Patient requesting appointment for: Glaucoma Exam. Patient said she has cloudy right eye and when pressure is up, both eyes get cloudy. She saw Dr. Prakash at [facility]. The first available appointment is on 04/24/19 and she saysshe cannot wait that long because her health insurance will change booth attendant. She would like be called if someone cancels their appointment. She would prefer to see Dr. Cinda Dumont if possible, she is her father's doctor. Wants/Needs to be seen within: 1 week(s) Is it okay to leave detailed message on your voicemail? Yes Herson Granados T SUPERVISOR documented in this encounter Plan of Treatment Not on filedocumented as of this encounter Visit Diagnoses Not on filedocumented in this encounter Care Teams Slide Fastener Chain Assembler Relationship Specialty Start Date End Date Chirag Metzger PA-C PCP - General Physician Distribution Operation Supervisor 07/06/[facility] [place] [address] documented as of this encounter
--- OUTSIDE RECORDS SUMMARY | 2022-03-07 11:20 | XMS_ITS | Encounter Summary ---
:1970 Author Organization [employer] Address [address] [place] [address] Care Team Providers Name Role Phone Chirag Metzger PA-C Primary Care Provider Encounter Details Date Type Department Care Team Description 02/19/2019 Notes/Orders [facility] [address] De[address] Ortiz PA-C Rheumatology [address] [place] [address] [place], [place] [address] [phone] Social History Tobacco Use Types Packs/Day Years [...] on filedocumented in this encounter Care Teams Maintenance Mechanic Elevators Relationship Specialty Start Date End Date Chirga Metzger PA-C PCP - General Physician Incident Handler 07/06/[address] [phone] documented as of this encounter
--- OUTSIDE RECORDS SUMMARY | 2022-03-07 11:20 | XMS_ITS | Encounter Summary ---
:1970 Author Organization [employer] Address [address] [place] [address] Care Team Providers Name Role Phone Chirag Metzger PA-C Primary Care Provider Reason for Visit Reason Comments Future Appointments Encounter Details Date Type Department Care Team Description 03/24/2019 Telephone [facility] [address], Future Appointments Ophthalmology Clinic MD [address] [place] [address] [place], [place] [phone] (Wo rk) Social History Tobacco Use Types Packs/Day Years Used Date Smoking Tobacco: Never Smokeless Tobacco: Never Alcohol Use Standard Drinks/Week Comments Yes 3 (1 standard drink = 0.6 oz pure alcoho l) Sex Assigned at Date Recorded Not on file documented as of this encounter Nursing Notes Herson Granados - 03/24/2019 1:33 PM CST Appointments - Same Day / Future Patient would like appointment with: Any Provider Encounter Clinician: Cinda Dumont MD Patient requesting appointment for: Glaucoma exam. She has cloudy right eye and when pressure is up, both eyes get cloudy. She saw doctor Dr. Prakash at [facility] [place]. Patient says she cannot wait until 04/24/19 to see an eye doctor.She would like an earlier date because her health insurance will change booth attendant. She wants to be calledif someone cancels their appointment. She specifically asked for Dr. Cinda Dumont and would like to see her if possible because she is her father's eye doctor. Wants/Needs to be seen within: 1 week(s) Is it okay to leave detailed message on your voicemail? Yes Herson Granados NG ROOM HOST/HOSTESS documented in this encounter Plan of Treatment Not on filedocumented as of this encounter Visit Diagnoses Not on filedocumented in this encounter Care Teams Mold Repairer Relationship Specialty Start Date End Date Chirga Metzger PA-C PCP - General Physician Plumber Pipe Fitting 07/06/16 [address] [place], [place] [address] documented as of this encounter
--- OUTSIDE RECORDS SUMMARY | 2022-03-07 11:20 | XMS_ITS | Encounter Summary ---
:1970 Author Organization [employer] Address [address] [place] [address] Care Team Providers Name Role Phone Chirag Metzger PA-C Primary Care Provider Encounter Details Date Type Department Care Team Description 03/16/2021 Orders Only Initial Department Provider, Micaela, [address] MD [place], [place] [address] Interface provider [phone] [place] [address] Social History Tobacco Use Types Packs/Day Years Used Date Smoking Tobacco: Never Smokeless Tobacco: Never Alcohol Use Standard Drinks/Week Comments Yes 3 (1 standard drink = 0.6 oz pure alcoho l) Sex Assigned at Date Recorded Not on file documented as of this encounter Plan of Treatment Not on filedocumented as of this encounter Procedures Procedure Name Priority Date/Time Associated Diagnosis Comme nts MRI-SCAN 03/16/2021 Results for thi s procedure are in the resu lts section. documented in this encounter Results MRI-SCAN (03/16/2021) Anatomical Region Laterality Modality Other Narrative This result has an attachment that is no t available. Interface Provider MD BAXTER/OTHER/AR documented in this encounter Visit Diagnoses Not on filedocumented in this encounter Care Teams Rehabilitation Aide/Scheduler Relationship Specialty Start Date End Date Chirag Metzger PA-C PCP - General Physician Motorcycle Police 07/06/16 [address] [place] [address] documented as of this encounter
--- OUTSIDE RECORDS SUMMARY | 2022-03-07 11:20 | XMS_ITS | Encounter Summary ---
:1970 Author Organization [employer] Address [address] [place] [address] Care Team Providers Name Role Phone Chirag Mtezger PA-C Primary Care Provider Reason for Visit Reason Comments Refill Encounter Details Date Type Department Care Team Description 04/20/2019 Refill [facility] Zaira Anthony PA-C Refill [address] [place], [place] [id number] [place] [address] [phone] (Wo rk) Social History Tobacco Use Types Packs/Day Years Used Date Smoking Tobacco: Never Smokeless Tobacco: Never Alcohol Use Standard Drinks/Week Comments Yes 3 (1 standard drink = 0.6 oz pure alcoho l) Sex Assigned at Date Recorded Not on file documented as of this encounter Nursing Notes Carla Edmondson RN - 04/22/2019 10:49 AM CST LV 02-14-2019 [facility] None ?? Last CBC and CREAT 03-06-2018 Nurse verified standing lab orders ?? Nurse spoke with patient and gave her the message from Zaira Ortiz. Patient has decided to have her PCP address the refill request for Celebrex ?? Denied per patients request VIOR CLINICIAN Zaira Ortiz PA-C - 04/21/2019 12:47 PM CST I am not familiar with the AVISE test, this is not a standardized test that we routinely perform forthe diagnosis of lupus here at [facility] or elsewhere that I am aware of. She has had a negativeANA as well as a negative double- stranded DNA and AGUILA And normal complements which as discussed at her visit would make lupus VERY unlikely. She has already had the reactive arthritis test, I am guessing that she is asking for the HLA-B27 test which has already been performed by her primary care provider locally, this was negative. I would recommend continued follow up with her primary care provider locally. VIOR CLINICIAN Carla Edmondson RN - 04/21/2019 12:14 PM CST 02-14-2019 [facility] None Patient is overdue for monitoring labs Nurse placed standing lab orders Nurse telephoned patient. Patient states she does not want this refilled. She wants to wait and talkto Dr. Mendez, who is her physician in [place]. It is important that we get all of my doctors together on one page with my care Reason: Patient is requesting specific testing for Lupus. She would like 2 tests ordered 1) AVISE CTD Test 2) re-active arthritis (REITERS) Next Steps: Review pended order for accuracy. Sign. Close encounter. Requested Prescriptions Pending Prescriptions Disp Refills ??? celecoxib (CELEBREX) 100 MG capsule [Pharmacy Med Name: Celecoxib Oral Capsule 100 MG] 180 Capsule 0 Sig: Take 1 Capsule by mouth two times a day. VIOR CLINICIAN documented in this encounter Plan of Treatment Not on filedocumented as of this encounter Visit Diagnoses Diagnosis Encounter for long-term (current) use of other medications - Primary documented in this encounter Care Teams Supervisor Partial Denture Department Relationship Specialty Start Date End Date Chirag Metzger PA-C PCP - General Physician Weigh Tank Operator 07/06/16 [address] [place] [address] documented as of this encounter
--- OUTSIDE RECORDS SUMMARY | 2022-03-07 11:21 | XMS_ITS | Encounter Summary ---
:1970 Author Organization [employer] Address [address] [place] [address] Care Team Providers Name Role Phone Chirag Metzger PA-C Primary Care Provider Reason for Visit Reason Comments Annual Exam Encounter Details Date Type Department Care Team Description 03/06/2018 Office Visit Chirag Chopra, Annual physical exam (Primar y Dx); [address] Evans PA-C Rectal pain, chronic; [place] [address] [address] Chronic pelvic pain in female; [phone] [place] [address] Spasm of back muscles; [phone] Segmental and s omatic dysfunction of cervical region; (Work) Segmental and somatic dysfunction of tho racic region; [phone] Segmental and s omatic dysfunction of sacral region; (Fax) Migraine, chron ic, without aura, intractable, with status migrainosus; Pap smear for c ervical cancer screening; Lipid screening ; Fatigue, unspec ified type; Essential hyper tension Social History Tobacco Use Types Packs/Day Years Used Date Smoking Tobacco: Never Smokeless Tobacco: Never Alcohol Use Standard Drinks/Week Comments Yes 3 (1 standard drink = 0.6 oz pure alcoho l) Sex Assigned at Date Recorded Not on file documented as of this encounter Last Filed Vital Signs Vital Sign Reading Time Taken Comments Blood Pressure 132/82 03/06/2018 2:15 PM CDT Pulse 68 03/06/2018 2:15 PM CDT Temperature - - Respiratory Rate - - Oxygen Saturation - - Inhaled Oxygen Concentration - - Weight 81.7 kg (180 lb 3.2 oz) 03/06/2018 2:15 PM CDT Height - - Body Mass Index 33.5 07/06/2016 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 Patient Active Problem List Diagnosis ??? Syncope, psychogenic (HRC) ??? Migraine, chronic, without aura, intractable, with status migrainosus ??? Obese (HRC) ??? Spasm of back muscles ??? Endometriosis ??? Primary open angle glaucoma of both eyes, mild stage ??? Segmental and somatic dysfunction of cervical region ??? Segmental and somatic dysfunction of thoracic region ??? Segmental and somatic dysfunction of sacral region ??? Cervicalgia ??? Pain in thoracic spine (HRC) ??? Low back pain, non-specific (HRC) SUBJECTIVE: The patient voices the following concerns: Having surgery on her left knee to remove a ganglion cystand Nuñez's cyst in March at [facility]. She is working at their [place] location, andhas been seeing them for this, as well as her migraine headaches and blood pressure, out of convenience. Still wants to come here for female care. Medication refills requested: Requested Prescriptions Pending Prescriptions Disp Refills ??? methocarbamol (ROBAXIN) 500 MG tablet 30 Tablet 3 Sig: Take 1 Tablet by mouth 4 times daily as needed. . No problem-specific Assessment & Plan notes found for this encounter. Past Medical/Surgical History/Family History: Reviewed and updated today under History tab in Electronic Medical Record. has a current medication list which includes the following prescription(s): biotin, eletriptan, ergocalciferol, hydrochlorothiazide, ibuprofen, latanoprost, methocarbamol, phentermine hcl, and rizatriptan. has No Known Allergies. Cath Lab Tech History: : No obstetric history on file. LMP: No LMP recorded. Patient is not currently having periods (Reason: Hysterectomy, still has cervix). Sexual History: reports that she currently engages in sexual activity and has had male partners. Social History: Social History Social History ??? Marital status: Spouse name: N/A ??? Number of children: 2 ??? Years of education: N/A Occupational History ??? currently unemployed Work part-time Social History Main Topics ??? Smoking status: Never Smoker ??? Smokeless tobacco: Never Used ??? Alcohol use 1.8 oz/week 3 Glasses of wine per week ??? Drug use: No ??? Sexual activity: Yes Partners: Male Other Topics Concern ??? Not on file Social History Narrative Preventive Health Assessment: She does exercise regularly. She does perform monthly self breast exam. Calcium intake is adequate. Pap smear: Due Mammogram: Due Colonoscopy: Due Cholesterol fractionation: Due Bone density scan: N/A Immunization History Administered Date(s) Administered ??? Flu Vac (3+ yrs) 04/10/2000 ??? Influenza IIV4 (Quadrivalent) 0.5mL (59139) 03/20/2014, 02/02/2015 ??? Influenza, Unspecified Formulation 03/04/2013 ??? MMR 03/04/2013, 05/30/2013 ??? TDAP (ADACEL) 08/17/2011 ??? Td 05/20/1995 ??? Tdap 08/17/2011 OBJECTIVE: BP 132/82 (BP Location: Left Arm, BP Cuff Size: Adult Regular) Pulse 68 Wt 180 lb 3.2 oz (81.7 kg) BMI 33.5 kg/m2 General appearance: alert, cooperative, no distress, appears stated age, Eyes: conjunctivae/corneas clear. PERRL, EOM's intact. Fundi benign, Ears: normal TM's and external ear canals AU, Throat: lips,mucosa, and tongue normal; teeth and gums normal, Neck: supple, symmetrical, trachea midline, no adenopathy, thyroid: not enlarged, symmetric, no tenderness/mass/nodules and no carotid bruit, Lungs: clear to auscultation bilaterally, Breasts: normal appearance, no masses or tenderness, Heart: regular rate and rhythm, S1, S2 normal, no murmur, click, rub or gallop, Abdomen: soft, non-tender; bowel sounds normal; no masses, no organomegaly, Pelvic: cervix normal in appearance, external genitalia normal, no cervical motion tenderness, vagina normal without discharge, Extremities: extremities normal, atraumatic, no cyanosis or edema, Pulses: 2+ and symmetric, Skin: Skin color, texture, turgor normal. No rashes or lesions and Lymph nodes: Cervical, supraclavicular, and axillary nodes normal. ASSESSMENT/PLAN: Keara was seen today for annual exam. Diagnoses and all orders for this visit: Annual physical exam - Lipid Panel - LDLD If Trig High; Future Rectal pain, chronic - methocarbamol (ROBAXIN) 500 MG tablet; Take 1 Tablet by mouth 4 times daily as needed. - ibuprofen (MOTRIN) 800 MG tablet; Take 1 Tablet by mouth three times a day as needed for Pain. Chronic pelvic pain in female - methocarbamol (ROBAXIN) 500 MG tablet; Take 1 Tablet by mouth 4 times daily as needed. - ibuprofen (MOTRIN) 800 MG tablet; Take 1 Tablet by mouth three times a day as needed for Pain. Spasm of back muscles - methocarbamol (ROBAXIN) 500 MG tablet; Take 1 Tablet by mouth 4 times daily as needed. - ibuprofen (MOTRIN) 800 MG tablet; Take 1 Tablet by mouth three times a day as needed for Pain. Segmental and somatic dysfunction of cervical region - methocarbamol (ROBAXIN) 500 MG tablet; Take 1 Tablet by mouth 4 times daily as needed. - ibuprofen (MOTRIN) 800 MG tablet; Take 1 Tablet by mouth three times a day as needed for Pain. Segmental and somatic dysfunction of thoracic region - methocarbamol (ROBAXIN) 500 MG tablet; Take 1 Tablet by mouth 4 times daily as needed. - ibuprofen (MOTRIN) 800 MG tablet; Take 1 Tablet by mouth three times a day as needed for Pain. Segmental and somatic dysfunction of sacral region - methocarbamol (ROBAXIN) 500 MG tablet; Take 1 Tablet by mouth 4 times daily as needed. - ibuprofen (MOTRIN) 800 MG tablet; Take 1 Tablet by mouth three times a day as needed for Pain. Migraine, chronic, without aura, intractable, with status migrainosus Pap smear for cervical cancer screening - Pap Test Order Lipid screening - Lipid Panel - LDLD If Trig High; Future Fatigue, unspecified type - Hemoglobin A1C Glycosylated; Future - Alanine Aminotransferase - ALT (SGPT); Future - Aspartate Aminotransferase (AST); Future - Vitamin D 25-Hydroxy (In house); Future - TSH with Free T4 (if TSH Abnormal); Future - CBC - Complete Blood Count-No Diff; Future Essential hypertension (HRC) - BUN; Future - Creatinine; Future - Electrolyte Panel; Future Patient Active Problem List Diagnosis ??? Syncope, psychogenic (HRC) ??? Migraine, chronic, without aura, intractable, with status migrainosus ??? Obese (HRC) ??? Spasm of back muscles ??? Endometriosis ??? Primary open angle glaucoma of both eyes, mild stage ??? Segmental and somatic dysfunction of cervical region ??? Segmental and somatic dysfunction of thoracic region ??? Segmental and somatic dysfunction of sacral region ??? Cervicalgia ??? Pain in thoracic spine (HRC) ??? Low back pain, non-specific (HRC) Discharged ambulatory and in stable condition. documented in this encounter Plan of Treatment Not on filedocumented as of this encounter Procedures Procedure Name Priority Date/Time Associated Comments Diagnosis PAP TEST ORDER Routine 03/06/2018 2:57 PM Pap smear for Result s for this CDT cervical cancer procedure ar e in screening the results section. HPV WITH 16 18 Routine 03/06/2018 2:57 PM Results for this GENOTYPING, CDT procedure are i n CERVICAL/ENDOCERVICA the res ults L section. ANATOMICAL PATH Routine 03/06/2018 2:57 PM Result s for this LIQUID BASED CDT procedure are i n the results section. documented in this encounter Results CBC - Complete Blood Count-No Diff (03/06/2018 3:12 PM CDT) P athologist Signature White Blood Cell 7.7 3.8 - 11.0 PN SOFT Count k/cmm Red Blood Cell 4.45 3.70 - PN SOFT Count 5.20 m/cmm Hemoglobin 13.0 11.8 - PN SOFT 15.5 g/dL Hematocrit 39.7 35.0 - PN SOFT 46.0 % Mean Corpuscular 89.2 80.0 - PN SOFT Volume 100.0 fL RDW 11.8 11.0 - PN SOFT 15.0 % Platelet Count 321 140 - 450 PN SOFT k/cmm Specimen Anatomical Collection Method Collection Time Receive d Time (Source) Location / / Volume Laterality 03/06/2018 3:12 PM 8 3:11 CDT PM CDT Narrative PN SOFT - 03/06/2018 4:41 PM CDT Performed at [facility], [address] [place] [address] CLIA number [id number] Chirag Metzger PA-C LAB_1 Performing Organization Address [facility]/ZIP [facility] Phon e Number PN SOFT [address] [place] [address] [phone] TSH with Free T4 (if TSH Abnormal) (03/06/2018 3:12 PM CDT) athologist Signature Thyroid 0.70 0.30 - PN SOFT Stimulating 4.50 Hormone uIU/mL Specimen Anatomical Collection Method Collection Time Receive d Time (Source) Location / / Volume Laterality 03/06/2018 3:12 PM 8 6:17 CDT PM CDT Narrative PN SOFT - 03/06/2018 7:05 PM CDT Performed at [address] [address] CLIA number [id number] Chirag Metzger PA-C LAB_1 Performing Organization Address [facility] Phon e Number PN SOFT [address] [place] [address] (ABNORMAL) Vitamin D 25-Hydroxy (In house) (03/06/2018 3:12 PM CDT) athologist Signature Vitamin D 25 Oh 11 (L) 20 - 80 PN SOFT ng/mL Comment: Deficiency = <20 Adequate ??= 20-29 Preferred = 30-50 Uncertain safety = 51-80 High = >80 Specimen Anatomical Collection Method Collection Time Receive d Time (Source) Location / / Volume Laterality 03/06/2018 3:12 PM 8 6:16 CDT PM CDT Narrative PN SOFT - 03/06/2018 7:08 PM CDT Performed at [place] [id number] CLIA number [id number] Chirag Metzger PA-C LAB_1 Performing Organization Address City/[facility]/ZIP Code Phon e Number PN SOFT [address] [place] [address] (ABNORMAL) Lipid Panel - LDLD If Trig High (03/06/2018 3:12 PM CDT) Patholo gist Method Time Signature Cholesterol 203 (H) 0 - 199 PN SOFT mg/dL Triglycerides 100 4 - 149 PN SOFT mg/dL HDL Cholesterol 49 >39 mg/dL PN SOFT Cholesterol/HDL 4.1 PN SOFT Ratio Screen LDL Calculated 134 (H) 19 - 130 PN SOFT mg/dL Non HDL Chol, Calc 154 0 - 159 PN SOFT mg/dL Length Of Fast 0.0 PN SOFT Specimen Anatomical Collection Method Collection Time Receive d Time (Source) Location / / Volume Laterality 03/06/2018 3:12 PM 8 4:51 CDT PM CDT Narrative PN SOFT - 03/06/2018 6:59 PM CDT Performed at [facility], [facility] [address] [place] [address] CLIA number [id number] Chirag Metzger PA-C LAB_1 Performing Organization Address [facility] Phon e Number PN SOFT [address] [place] [address] (ABNORMAL) Electrolyte Panel (03/06/2018 3:12 PM CDT) P athologist Signature Sodium 139 136 - 145 PN SOFT mmol/L Potassium 3.3 (L) 3.5 - 5.2 PN SOFT mmol/L Chloride 96 (L) 98 - 109 PN SOFT mmol/L CO2 30 22 - 31 PN SOFT mmol/L Specimen Anatomical Collection Method Collection Time Receive d Time (Source) Location / / Volume Laterality 03/06/2018 3:12 PM 8 4:51 CDT PM CDT Narrative PN SOFT - 03/06/2018 6:59 PM CDT Performed at [facility], [address] [place] [address] CLIA number [id number] Chirag Metzger PA-C LAB_1 Performing Organization Address [facility] Phon e Number PN SOFT [address] [place] [address] Creatinine (03/06/2018 3:12 PM CDT) athologist Signature Creatinine Serum 0.80 0.55 - PN SOFT 1.02 mg/dL Est GFR >60 >60 PN SOFT Am mL/min/1.7 3m2 Est GFR Non-Afr >60 >60 PN SOFT Am mL/min/1.7 3m2 Comment: Normal>60, moderate decrease 30 - 59, se ita decrease 15 - 29, renal failure <15 mL/min/1.73 m2 NOTE: ??Choose the eGFR result above dontae ropriate for the race of the patient. Specimen Anatomical Collection Method Collection Time Receive d Time (Source) Location / / Volume Laterality 03/06/2018 3:12 PM 8 4:51 CDT PM CDT Narrative PN SOFT - 03/06/2018 6:59 PM CDT Performed at [facility], [facility] [address] [place] [address] CLIA number [id number] Chirag Metzger PA-C LAB_1 Performing Organization Address City/[facility]/ZIP Code Phon e Number PN SOFT [address] [place] [address] BUN (03/06/2018 3:12 PM CDT) athologist Signature Blood Urea <10 9 - 26 PN SOFT Nitrogen mg/dL Specimen Anatomical Collection Method Collection Time Receive d Time (Source) Location / / Volume Laterality 03/06/2018 3:12 PM 8 4:51 CDT PM CDT Narrative PN SOFT - 03/06/2018 6:59 PM CDT Performed at [facility], [address] [place] [address] CLIA number [id number] Chirag Metzger PA-C LAB_1 Performing Organization Address City/[facility] Code Phon e Number PN SOFT [address] [place] [address] Aspartate Aminotransferase (AST) (03/06/2018 3:12 PM CDT) [facility] Method Time Signature Aspartate 20 10 - 40 PN SOFT Aminotransferase U/L Specimen Anatomical Collection Method Collection Time Receive d Time (Source) Location / / Volume Laterality 03/06/2018 3:12 PM 8 4:51 CDT PM CDT Narrative PN SOFT - 03/06/2018 6:59 PM CDT Performed at [facility], [address] [place] [address] CLIA number [id number] Chirag Metzger PA-C LAB_1 Performing Organization Address City/[facility] Code Phon e Number PN SOFT [address] [place] [address] Alanine Aminotransferase - ALT (SGPT) (03/06/2018 3:12 PM CDT) [facility] Method Time Signature Alanine 17 9 - 55 PN SOFT Aminotransferase U/L Specimen Anatomical Collection Method Collection Time Receive d Time (Source) Location / / Volume Laterality 03/06/2018 3:12 PM 8 4:51 CDT PM CDT Narrative PN SOFT - 03/06/2018 6:59 PM CDT Performed at [facility], [address] [place] [address] CLIA number [id number] Chirag Metzger PA-C LAB_1 Performing Organization Address [facility] Code Phon e Number PN SOFT [address] [place] [address] (ABNORMAL) Hemoglobin A1C Glycosylated (03/06/2018 3:12 PM CDT) P athologist Signature HGB A1C 5.9 (H) 4.0 - 5.6 % PN SOFT Specimen Anatomical Collection Method Collection Time Receive d Time (Source) Location / / Volume Laterality 03/06/2018 3:12 PM 8 8:54 CDT PM CDT Narrative PN SOFT - 03/06/2018 10:56 PM CDT Performed at [place] [address] [place] [address] CLIA number [id number] Chirag Metzger PA-C LAB_1 Performing Organization Address City/[facility]/ZIP Code Phon e Number PN SOFT [address] [place] [address] Pap Smear (03/06/2018 2:57 PM CDT) Specimen (Source) Anatomical Collection Method Collection Time Re ceived Time Location / / Volume Laterality 03/06/2018 2:57 PM CDT Narrative PN SOFT - 03/23/2018 9:23 AM CDT FINAL GYNECOLOGICAL CYTOLOGY REPORT Pathology #: [id number] ?Date Obtained: 03/06/2018 ? Date Received: 03/07/2018 INTERPRETATION/RESULTS: Negative for Intraepithelial Lesion or M alignancy. SPECIMEN ADEQUACY: Satisfactory for Evaluation. ??Endocervi zenaida cells/transformation zone component present. Verified on 03/18/2018 ??by STAN CLEARY(ASCP) (electronic signature) CLINICAL NOTES: ?Abnormal bleeding: No, LMP: s/p supracervic, Menstrual status: ?Hysterectomy, Current form of t herapy: None apply LIQUID BASED PAP SMEAR SPECIMEN TYPE: ?ROUTINE CERVICAL PAP TEST PLEASE NOTE: The pap smear is a screening test design ed to aid in the detection of cervical cancer and its pre cursor lesions. It is not a diagnostic procedure and letitia uld not be used as the sole means of detecting cervical cancer. Both false-positive and false-negative report s may occur. Performed at [facility], [address] [place] [address] Chirag Metzger PA-C LAB_1 Performing Organization Address City/State/ZIP Code Phon e Number PN SOFT [address] [place] [address] HPV with 16 18 Genotyping (03/06/2018 2:57 PM CDT) [facility] Method Time Signature HPV High Risk Not Detected PN SOFT 16 HPV High Risk Not Detected PN SOFT 18 Other HPV High Not Detected PN SOFT Risk Not 16/18 Comment: ........................................ ................................. The Andrzej HPV Test is a qualitative in v itro test for the detection of Human Papillomavirus in [facility] patient specimens. ??The test utilizes amplifica tion of target DNA by Polymerase Chain Reaction (PCR) and n ucleic acid hybridization for the detection of 14 hi gh-risk (HR) HPV types. The assay tests for high risk typ es (16, 18, 31, 33, 35, 39, 45, 51, 52, 56, 58, 59, 66 and 6 8). NOTE: This test was developed and its pe rformance characteristics determined by [facility] [employer]. It has not been cleared or approved by [facility]. The laboratory is regulated under CLIA as qualified to perform high-complexity testing. This test is used for clinical purposes. It should not be regarded as investigational or fo r research. Specimen Anatomical Collection Method Collection Time Receive d Time (Source) Location / / Volume Laterality 03/06/2018 2:57 PM 8 2:57 CDT PM CDT Narrative NORA SOFT - 2018 12:58 [place] [address] CLIA number [id number] Chirag Metzger PA-C LAB_1 Performing Organization Address [facility] Phon e Number SOFT [facility] [place] [address] [phone] Pap Test Order (03/06/2018 2:57 PM CDT) Analysis Performed At [facility] Time Signature Pap Smear Collected PN SOFT Monolayer tracking test Specimen Anatomical Collection Method Collection Time Receive d Time (Source) Location / / Volume Laterality 03/06/2018 2:57 PM 8 5:09 CDT AM CDT Narrative NORA SOFT - 03/06/2018 2:57 PM CDT Performed at [address] [address] CLIA number [id number] Chirag Metzger PA-C LAB_1 Performing Organization Address City/State/ZIP Code Phon e Number PN SOFT [address] [place] [address] [phone] documented in this encounter Visit Diagnoses Diagnosis Annual physical exam - Primary Routine general medical examination at a health care facility Rectal pain, chronic Anal or rectal pain [...] of sacral region, n ot elsewhere classified Migraine, chronic, without aura, intract able, with status migrainosus Chronic migraine without aura, with intr actable migraine, so stated, with status migrainosus Pap smear for cervical cancer screening Screening for malignant neoplasm of the cervix Lipid screening Screening for lipoid disorders Fatigue, unspecified type Essential hypertension (HRC) Unspecified essential hypertension Fatigue, unspecified type Essential hypertension (HRC) Unspecified essential hypertension Annual physical exam Routine general medical examination at a health care facility documented in this encounter Care Teams Head Doffer Relationship Specialty Start Date End Date Chirag Metzger PA-C PCP - General Physician Welding Tester 07/06/16 [address] [place] [address] documented as of this encounter
--- OUTSIDE RECORDS SUMMARY | 2022-03-07 11:21 | XMS_ITS | Encounter Summary ---
:1970 Author Organization [employer] Address [address] [place] [address] Care Team Providers Name Role Phone Chirag Metzger PA-C Primary Care Provider Reason for Visit Reason Comments NECK PAIN BACK PAIN BACK PAIN, LOW HEADACHE Encounter Details Date Type Department Care Team Description 04/05/2018 Office Visit [facility], Segmental and somatic dysfun ction of cervical region; [address] Enoc Lazaro DC Segmental and somatic dysfun ction of thoracic region; [place] [address] Segmental and somatic dysfun ction of sacral region; [phone] Cervical pain ( neck); Acute thoracic back pain, unspecified back pain laterality; Low back pain, non-specific; Spasm of back m uscles Social History Tobacco Use Types Packs/Day Years Used Date Smoking Tobacco: Never Smokeless Tobacco: Never Alcohol Use Standard Drinks/Week Comments Yes 3 (1 standard drink = 0.6 oz pure alcoho l) Sex Assigned at Date Recorded Not on file documented as of this encounter Progress Notes Enoc Blanca DC - 04/05/2018 10:30 AM CST Subjective Keara Cuellar is 43 yr female here for Chief Complaint Patient presents with ??? NECK PAIN ??? BACK PAIN ??? BACK PAIN, LOW ??? HEADACHE Onset of neck pain with headaches, mid back and low back pain that started last week. Flare-up of pain. Review of systems: Denies numbness, tingling, or weakness in the extremities. Denies change in bowel/bladder function. Past medical, surgical, social, and family history has been reviewed. Objective: There were no vitals taken for this visit. Estimated body mass index is 33.5 kg/m?? as calculated from the following: Height as of 07/06/16: 5' 1.5 (1.562 m). Weight as of 03/06/18: 180 lb 3.2 oz (81.7 kg). Inspection: No bruising, swelling, erythema is seen. Patient is alert and oriented. Soft Tissue: Mild to moderate hypertonicity/muscle spasm and tenderness is noted in the sacroiliac, thoracic and cervical regions. Range of Motion: Decreased with right sided thoracic pain upon flexion, extension and right rotation. Ortho/Neuro: Misalignment/Malpositions: Hypomobility/misalignment was noted in the sacroiliac, T9-T10, C2-C3 regions. Assessment: 1. Segmental and somatic dysfunction of cervical region 2. Segmental and somatic dysfunction of thoracic region 3. Segmental and somatic dysfunction of sacral region 4. Cervical pain (neck) 5. Acute thoracic back pain, unspecified back pain laterality (HRC) 6. Low back pain, non-specific (HRC) 7. Spasm of back muscles Plan: Diagnostic plan: No further testing/evaluation at this time. Therapeutic plan: Patient consented to care. Spinal manipulative therapy (SMT) was applied to the sacroiliac, thoracic and [...] 3 TIMES PER DAY. Enoc Blanca DC NSE ATTORNEY documented in this encounter Plan of Treatment [...] pain laterality (HRC) Low back pain, non-specific Spasm of back muscles Other symptoms referable to back documented in this encounter Care Teams Printing Grey Cloth Tender Relationship Specialty Start Date End Date Chirag Metzger PA-C PCP - General Physician Siebel Consultant 07/06/[address] [place] [address] documented as of this encounter
--- OUTSIDE RECORDS SUMMARY | 2022-03-07 11:21 | XMS_ITS | Encounter Summary ---
:1970 Author Organization [employer] Address [address] [place] [address] Care Team Providers Name Role Phone Chirag Metzger PA-C Primary Care Provider Reason for Visit Reason Comments NECK PAIN BACK PAIN BACK PAIN, LOW Encounter Details Date Type Department Care Team Description 10/25/2017 Office Visit [facility], Segmental and somatic dysfun ction of cervical region (Primary Dx); [address] [facility] Enoc Lazaro DC Segmental and somatic dysfun ction of thoracic region; [place] [id number] Segmental and somatic dysfun ction of sacral region; [phone] Cervicalgia; Pain in thoraci c spine; Low back pain, non-specific Social History Tobacco Use Types Packs/Day Years Used Date Smoking Tobacco: Never Smokeless Tobacco: Never Alcohol Use Standard Drinks/Week Comments Yes 3 (1 standard drink = 0.6 oz pure alcoho l) Sex Assigned at Date Recorded Not on file documented as of this encounter Progress Notes Enoc Blanca DC - 10/25/2017 3:45 PM CDT Marla Cuellar is 43 yr female here for Chief Complaint Patient presents with ??? NECK PAIN ??? BACK PAIN ??? BACK PAIN, LOW Onset of neck pain with headaches, mid back and low back pain that started last weeks. Improvement of her condition. Review of systems: Denies numbness, tingling, or weakness in the extremities. Denies change in bowel/bladder function. Past medical, surgical, social, and family history has been reviewed. Objective: There were no vitals taken for this visit. Estimated body mass index is 32.72 kg/(m^2) as calculated from the following: Height as of 07/06/16: 5' 1.5 (1.562 m). Weight as of 07/06/16: 176 lb (79.8 kg). Inspection: No bruising, swelling, erythema is [...] and somatic dysfunction of sacral region 4. Cervicalgia 5. Pain in thoracic spine ([facility]) 6. Low back pain, non-specific ([facility]) [...] 3 TIMES PER DAY. Enoc Blanca DC documented in this encounter Plan of Treatment Not on filedocumented as of this encounter Visit Diagnoses Diagnosis Segmental and somatic dysfunction of cer vical region - Primary Nonallopathic lesion of cervical region, not elsewhere classified Segmental and somatic dysfunction of tho racic region Nonallopathic lesion of thoracic region, not elsewhere classified Segmental and somatic dysfunction of sac ral region Nonallopathic lesion of sacral region, n ot elsewhere classified Cervicalgia Pain in thoracic spine ([facility]) Pain in thoracic spine Low back pain, non-specific documented in this encounter Care Teams Gas Station Supervisor Relationship Specialty Start Date End Date Chirag Metzger PA-C PCP - General Physician Flight Agent 07/06/16 [address] [place] [address] documented as of this encounter
--- OUTSIDE RECORDS SUMMARY | 2022-03-07 11:21 | XMS_ITS | Encounter Summary ---
:1970 Author Organization [facility] Address [address] [place] [address] Care Team Providers Name Role Phone Chiarg Metzger PA-C Primary Care Provider Reason for Visit Reason Comments Refill Encounter Details Date Type Department Care Team Description 03/24/2017 Refill Chirag Chopra PA-C Refill [address] [place] [address] [place] [address] [phone] (Wo rk) Social History Tobacco Use Types Packs/Day Years Used Date Smoking Tobacco: Never Smokeless Tobacco: Never Alcohol Use Standard Drinks/Week Comments Yes 3 (1 standard drink = 0.6 oz pure alcoho l) Sex Assigned at Date Recorded Not on file documented as of this encounter Nursing Notes Chirag Metzger PA-C - 03/28/2017 4:47 PM CST faxed RONMENTAL COMPLIANCE OFFICER Farheen Navarro RN - 03/28/2017 4:34 PM CST Further assistance needed to complete refill request Reason: Please advise on continued use. Medication last ordered 4/22/16 for #30 and 3 refills. Last visit with PCP 07/06/16. Next Steps: Review pended order for accuracy. Sign if appropriate. Document if appt. or lab is needed for further refills. Route to [facility]. pool Requested Prescriptions Pending Prescriptions Disp Refills ??? methocarbamol (ROBAXIN) 500 MG tablet [Pharmacy Med Name: Methocarbamol Oral Tablet 500 MG] 30 Tab 1 Sig: TAKE 1 TABLET BY MOUTH 4 TIMES DAILY NEEDED FOR MUSCLE SPASMS. DO NOT DRIVE WITHIN 8 HOURS OF TAKING. RONMENTAL COMPLIANCE OFFICER documented in this encounter Plan of Treatment Not on filedocumented as of this encounter Visit Diagnoses Diagnosis Rectal pain, chronic Anal or rectal pain Chronic pelvic pain in female Unspecified symptom associated with fema le genital organs documented in this encounter Care Teams Learning Consultant Relationship Specialty Start Date End Date Chirag Metzger PA-C PCP - General Physician Surgical Scrub Tech 07/06/16 [address] [place] [address] documented as of this encounter
--- OUTSIDE RECORDS SUMMARY | 2022-03-07 11:21 | XMS_ITS | Encounter Summary ---
:1970 Author Organization [employer] Address [address] [place] [address] Care Team Providers Name Role Phone Chirag Metzger PA-C Primary Care Provider Reason for Visit Reason Comments NECK PAIN BACK PAIN BACK PAIN, LOW HEADACHE Encounter Details Date Type Department Care Team Description 10/25/2018 Office Visit [facility], Segmental and somatic dysfun ction of cervical region; [address] Enoc Lazaro DC Segmental and somatic dysfun ction of thoracic region; [place] [id number] Segmental and somatic dysfun ction of sacral region; [phone] Cervical pain ( neck); Acute thoracic back [...] encounter Progress Notes Enoc Blanca DC - 10/25/2018 9:15 AM CDT Marla Cuellar is 43 yr female here for Chief Complaint Patient presents with ??? NECK PAIN ??? BACK PAIN ??? BACK PAIN, LOW ??? HEADACHE Onset of neck pain with headaches, mid back and low back pain that started last week. Flare-up of pain. Not currently seeing other providers for this condition. Review of systems: Denies numbness, tingling, or weakness in the extremities. Denies change in bowel/bladder function. Past medical, surgical, social, and family history has been reviewed. Objective: There were no vitals taken for this visit. Estimated body mass index is 36.62 kg/m?? as calculated from the following: Height as of 07/06/16: 5' 1.5 (1.562 m). Weight as of 10/23/18: 197 lb (89.4 kg). Inspection: No bruising, swelling, erythema is [...] thoracic back pain, unspecified back pain laterality 6. Low back pain, non-specific Plan: Diagnostic plan: No further testing/evaluation at [...] non-specific documented in this encounter Care Teams Envelope Stamping Machine Operator Relationship Specialty Start Date End Date Chirag Metzger PA-C PCP - General Physician Scrap Piler 07/06/16 [address] [place] [id number] documented as of this encounter
--- OUTSIDE RECORDS SUMMARY | 2022-03-07 11:21 | XMS_ITS | Encounter Summary ---
:1970 Author Organization [facility] Address [address] [place] [address] Care Team Providers Name Role Phone Chirag Metzger PA-C Primary Care Provider Reason for Visit Reason Comments Consult, New Patient Encounter Details Date Type Department Care Team Description 10/23/2018 Initial Consult Bob Do M D Fibromyalgia (Primary Dx); Rheumatology [address] [place] [address] Chronic pain of left knee; [address] [facility] Chronic pain syndrome [address] [phone] Social History Tobacco Use Types Packs/Day Years Used Date Smoking Tobacco: Never Smokeless Tobacco: Never Alcohol Use Standard Drinks/Week Comments Yes 3 (1 standard drink = 0.6 oz pure alcoho l) Sex Assigned at Date Recorded Not on file documented as of this encounter Last Filed Vital Signs Vital Sign Reading Time Taken Comments Blood Pressure 145/72 10/23/2018 10:41 AM CDT Pulse 86 10/23/2018 10:41 AM CDT Temperature - - Respiratory Rate - - Oxygen Saturation - - Inhaled Oxygen Concentration - - Weight 89.4 kg (197 lb) 10/23/2018 10:41 AM CDT Height - - Body Mass Index 36.62 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 I think you likely have fibromyalgia. Fibromyalgia is sensitive nerves. Nerves that send pain messages at a lower threshold. You've been told over the years that you have tight neck muscles and told you have bursitis of the hips. These were all signs of fibromyalgia. I think what happens is that the surgery disturbed some nerves around the knee and has mad them muchmore sensitive. It is not autoimmune or inflammatory. Inflammatory knee issue would cause warmth and swelling in different areas (inside the knee joint). You've had blood tests of inflammation (normal); You had a lupus test (negative); you had rheumatoidtest (negative). Probably 1 out of a couple hundred people when they break a bone or have a trauma or have a surgery,they're body doesn't respond as usual and they can end up in more pain; That pain is driven by sensitive nerves. The fact that you have fibromyalgia is a big risk factor for that. The treatment of that kind of pain is 1. Low impact exercise, best would be water aerobics. 2. I suspect it will improve some with time. 3. Best medications are gabapentin and cymbalta (duloxetine). Duloxetine raises some feel good neurotransmitters and could help mood and pain. Its slow acting. It could added to your medications and the hope would be the tramadol and oxycodone could be reduced over time. Fibromyalgia What is it? Fibromyalgia is a syndrome where the main symptoms are fatigue and widespread musculoskeletal pain, not explained by other causes. Typically, the pain is on both sides of the body and above and below the waist. If the pain is more localized to a particular area of the muscles and not all over, it is called myofascial pain. The pain is usually in the muscles, but can also be in the joint areas, where the muscles attach. Visible swelling and heat in the joint areas are not features of fibromyalgia (although sometimes they may feel that way to you). Many patients with fibromyalgia will have at least 11 of 18 of the tender points noted below. The common tender points of fibromyalgia include neck, upper back, sternal area, elbows, buttock, side of the hips, and knees. Other symptoms commonly found in patients with fibromyalgia may include: ??? Disturbed and poor quality sleep - people with fibromyalgia often do not get good ???restorative?? sleep, and may also have problems with leg cramps and restless legs. ??? Depression, anxiety and other mood changes ??? Numbness and tingling in extremities, called paresthesias (other causes such as neurological diseases may need to be ruled out) ??? Irritable bowel syndrome - constipation, diarrhea, bloating, abdominal cramping, often exacerbated by stress, and not explained by other bowel disorders. ??? Irritable bladder ??? Dry eyes and mouth ??? Headaches and facial pain - pain at the temporomandibular joint (TMJ) is common, as are tension and other types of headaches. ??? Heightened sensitivity - some patients will have an increased sensitivity to bright lights, loudnoises, odors such as perfumes, and even light touch. ??? Difficulty concentrating ??? Chest pain, usually from the rib cage and muscles. ??? Dizziness ??? Painful menstrual cramps Cause The exact cause of fibromyalgia is as yet not known. However, some research suggests that up to halfof cases of fibromyalgia may be associated with small fiber neuropathy. This is not too surprising, since many of the medications used for fibromyalgia are also used for neuropathy. Many other factors probably play a role. Recent research has suggested that genetics may contribute. Just as there are people whose genes result in ???strong?? bones or ???weak?? bones, there are people who have abnormalities in their pain processing (the way nerves respond to pain) which may predispose to developing fibromyalgia. External factors also can contribute to developing fibromyalgia. For example, if you beco me depressed, the depression can result in increased musculoskeletal pain. When the depression is treated, the pain can improve. Sometimes the chronic pain of fibromyalgia can increase the likelihood of developing depression, and in that case it is equally important to treat the depression. Poor sleepfor any extended period of time is another factor in the development of fibromyalgia. Healthy peoplewho are sleep deprived often begin to ???ache?? in their muscles. This can then result in a viciouscycle where pain further disturbs sleep which results in even more pain. Many factors like stress, depression, and lack of exercise can affect sleep quality. Frequent ???hot flashes?? during menopause can significantly affect sleep. Sleep can also be affected by poor ???sleep hygiene?? . For example,activities like reading in bed, eating in bed, watching TV in bed, etc., can result in ???confusing?? the body about the purpose of being in bed. Avoiding such activities in bed can allow for better sleep quality. Regular aerobic exercise may be preventative to developing fibromyalgia because it improves sleep and counteracts stress and depression. Along the same lines, lack of aerobic exercise can contribute to the development of fibromyalgia. Other conditions which cause pain including rheumatoidarthritis, connective tissue diseases like lupus and Sjogren???s syndrome can be associated with fibromyalgia. Sometimes a severe trauma (physical or emotional) can predispose to developing fibromyalgia. Risk factors ??? Female gender - Well over 90% of patients with fibromyalgia are women. ??? Younger age - It is unusual to have the first presentation of fibromyalgia occur after age 65. ??? Poor sleep - From whatever cause (pain, stress, restless legs, sleep apnea, legs cramps) can contribute to developing fibromyalgia. ??? Family history - If siblings or parents have had fibromyalgia, this may increase your risk. ??? 2% of the [place] population or 3-6 million people have fibromyalgia Evaluation Usually the laboratory and x-rays findings in fibromyalgia are normal. Some laboratory tests and imaging tests may be considered to rule out other potential causes of pain. The patient???s history andthe physical examination are the most important clues to diagnosing fibromyalgia. TREATMENT Health care providers A number of different providers may assist in the care of your fibromyalgia. Your primary care provider will usually be familiar with fibromyalgia and many of its treatments. Physical medicine and rehabilitation doctors are also experts in the treatment of non-inflammatory musculoskeletal pain and can be helpful in prescribing specific physical therapy regimens. Since many cases of fibromyalgia havesmall fiber neuropathy, visiting with a Neurologist about that may sometimes be helpful. Rheumatologists often assist with ruling out other causes of musculoskeletal pain and making recommendations fortreatment in difficult cases. Other providers such as doctors of chiropractic, physical therapists, o ccupational therapists, acupuncturists, and other alternative providers often play a role. Some psychologists have expertise in helping patients better manage chronic pain. Tyj-rmkjiklydb-ybdek treatments An exercise program is an essential part of counteracting fibromyalgia. You need to know a number ofthings before beginning a program. The best types of exercise to consider are low-impact aerobic activities. Aerobic means getting you hear rate up to 60-80% of maximum (220 minus age). For example, ifyou are 40 years old, the goal heart rate would be 0.6 (220-40) to 0.8(220-40), or 108 to 144. The goal is to find an activity that allows you to maintain this heart rate for 20-30 minutes at least 3 days per week. The best forms of exercise for fibromyalgia are walking, biking, swimming, and water aerobics. Probably the least imposing way to start is a water aerobics program in a heated pool. Many community pools such as the [facility] offer ???fibrocize?? water aerobics programs. A very important pointto remember is to start your exercise program slowly and gradually increase it. Try not to make the mistake of going out the first day and doing a hard workout for 30 minutes. Many patients will feel so poorly after this that they never go back. Start very slowly and gradually increase. It is important to remember, however, that many people will have an increase in pain for several weeks before exercise begins to decrease the pain. Try to persevere through this period. Exercises that cause significant postexercise pain are probably too intense. Other forms of exercise that include muscle strengthening like Pilates and Ron Chi may be beneficial. Cognitive behavioral therapy is another very helpful intervention for fibromyalgia. Unfortunately, there is no ???magic bullet?? pill to take away all the symptoms of fibromyalgia. Therefore, learninghealthy techniques to better manage pain is imperative. Meditation and relaxation techniques providea way to refocus your mind away from the pain and cope better with it. This type of treatment can also help reduce stress. Occupational therapists at [facility] offer a program called the Lifestyle renewal program (see information on last page), where you can learn these techniques, and the majority of patients report that this is helpful. Pain psychologists at [facility] are another helpful resource. Ameena Gardiner, PhD, Torie Pappas M.Ed, LP, Psychologist at [facility] [Chronic pain (headaches, fibromyalgia, etc.) and irritable bowel syndrome - evaluation and treatment], and Sid Genao, Ph.D., LP, Psychologist at [facility]ACHINE FEEDER OR OFFBEARER (Chronic pain evaluation). Patients may schedule appointments as usual by contacting the Mental Health Department at . An intake counselor will request information on the presenting problem and referral source. A variety of other modalities are helpful for some patients. Massage can help loosen and relax tightmuscles. Acupuncture may help address abnormal pain processing and has been shown in a randomized trial to provide decreased pain. On a practical note, massage and acupuncture are not routinely coveredthrough insurance. Physical therapy with gentle stretching and muscle strengthening can help in someinstances, as can group care worker. Warm water pool physical therapy at places like the [facility] and [facility] can be prescribed by your physician, if necessary. There are also a number of fibromyalgia support groups. Many patients ask if specific dietary modifications can help, and some patients have found for themselves that certain foods or diets can help or hinder with their pain. To date, there are no specific trials which have shown that one specific food or diet is helpful. However, weight loss can be helpful, and eating a balanced diet to help lose a few pounds is usually beneficial. Although no controlled trials support its recommendation, some patients report that getting regular exposure to morning sunlight can boost mood and wellbeing. Medications Because fibromyalgia is common, more and more medications are being studied and developed to help. While no medicine is yet curative, they can be a useful part of the treatment. The medications for fibromyalgia can in general be thought of to work on one of several areas. Some help with restoring good sleep. Anti- depressants can help treat depression, if it is present. Others work on pain. And some work on several of these areas. Medications which you and your doctor may consider include, but are not limited to: ??? Acetaminophen (Tylenol) - This is a mild, but safe analgesic when taken in doses of 1000 mg, three times daily. ??? NSAIDs (Nonsterioidal anti-inflammatory drugs) - Medications like ibuprofen (Advil) and naproxen(Aleve) sometimes offer some pain relief. They should be taken with food to avoid stomach irritationand not be continued if they offer no benefit. ??? Amitriptyline (Elavil) - Technically an antidepressant, this medicine when used in low doses is helpful for improving sleep. Typical dose would be 10 - 100 mg at night. Side effects could include dry mouth and grogginess. ??? Nortriptyline (Pamelor) - Technically an antidepressant, this medicine when used in low doses ishelpful for improving sleep. Typical dose would be 10 - 100 mg at night. Side effects could include dry mouth and grogginess. ??? Trazodone (Deseryl) - Technically an antidepressant, this medicine when used in low doses is helpful for improving sleep. Typical dose would be 25-150 mg at night. Side effects could include dry mouth and grogginess. ??? Doxepin (Sinequan) - Technically an antidepressant, this medicine when used in low doses is helpful for improving sleep. Typical dose would be 10 - 100 mg at night. Side effects could include dry mouth and grogginess. ??? Milnacipran (Savella) - This is a newer generation of antidepressant, which has shown benefits not only for depression, but also for improving pain, even in those without depression. It increases both serotonin and norepinephrine in the brain. It is now FDA approved for fibromyalgia. Typical dosing is 12.5 - 200 mg/day. ??? Duloxetine (Cymbalta) - This is a newer generation of antidepressant, which has shown benefits not only for depression, but also for improving pain, even in those without depression. It increases both serotonin and norepinephrine in the brain. It is now FDA approved for fibromyalgia. ??? Tramadol (Ultram) or combined with Tylenol (Ultracet) - This medication is primarily for pain. It is a weak opioid and for that reason has been used less in recent times because of potential addictive potential. Typical dose would be 50 - 100 mg up to 4 times daily. It should be avoided if you have a history of a seizure disorder. Side effects could include nausea, sedation, and constipation. Also, it should be used cautiously in patients already taking medications such as sertraline (Zoloft), paroxetine (Paxil), fluoxetine (Prozac), citalopram (Celexa), escitalopram (Lexapro), venlafaxine (Effexor), duloxetine (Cymbalta). ??? Pramipexole (Mirapex) - This medication was first used to treat Parkinson???s disease and the Restless Leg Syndrome. Recent studies have shown that it can reduce pain levels in fibromyalgia. It hassurprisingly few side effects, but can cause nausea, transient anxiety, or weight loss. Typical doseis starting at 0.25 mg daily and gradually increasing to a maximum of 4.5 mg at night. ??? Gabapentin (Neurontin) - First developed to treat seizures, gabapentin helps block certain nervetransmissions and can reduce nerve pain called neuropathy. It can have some sedative properties and improve sleep in selected patients. Typical dose would be starting at 100 mg at night and gradually increasing as tolerated to as high as 800 mg three times daily. There is now a published trial suggesting that about half of patients get at least a 30% improvement in pain. Sleep can be significantly improved with gabapentin also. ??? Pregabalin (Lyrica) - This is a newer generation cousin of gabapentin, but is more expensive. Typically, the starting dose is 25 mg daily, increasing as tolerated to 150 mg three times daily as tolerated. Lyrica is FDA approved for fibromyalgia. ??? Muscle relaxers: Cyclobenzaprine (Flexeril), carisoprodol (Soma), methocarbamol (Robaxin), metaxalone (Skelaxin), tizanidine (Zanaflex) can be useful to relax to help with relaxation of tight muscles and because of their natural sedative effects can help with sleep also. ??? Opioid pain medicines (codeine, hydrocodone, oxycodone, morphine, etc) are typically NOT recommended as part of the medication program in fibromyalgia. They tend to not control the pain, creating aneed for more and more medication. Some pain specialists will consider their use in selected circumstances. Procedures Sometimes, several very tender muscular areas called trigger points can be injected by your Park Aide or other providers with a mixture of local anesthetic and a small amount of cortisone. These are called trigger point injections and can often help provide relief to local areas of particularly sore muscles. Prognosis Fibromyalgia is a chronic condition, but can sometimes go away. The goal is to manage it through all of the interventions above. Of importance, it is not typically a progressive or crippling disorder and does not impair function of internal organs. Resources ??? National Fibromyalgia Association 834 447 2709 www.fmaware.org ??? National [place] of Arthritis and Musculoskeletal and Skin Diseases 707 081 0807 www.niams.nih.gov ??? National Center for Complementary and Alternative Medicine 613 379 5350 www.[facility].nih.gov ??? [facility] (Water aerobics, heated pool to 91 degrees) [address] [place], [place]; charges apply. What else can be tried? Sometimes, for a minority of patients, the above interventions do not result in control of fibromyalgia. In these cases, you should consider a chronic pain program. Several of these and additional resources are listed below: [facility]), a nursing practice for fibromyalgia patients, has opened at [facility], to serve [facility] clientele. Daisy Orr, RN, VICE CHAIRMAN and Nilam Iverson MS, RN, are the founders and co-owners. [phone] [facility], Dr. Vlad Ramos , [address] [facility] [facility] [phone] [address] [address], [place] [address] Also offices in [place] and [place]. , [email or web address] - Aquatic Therapy: [facility], [place], [facility]. [email or web address] [facility] [place] [address] Outpatient therapy: (physical, occupational and speech therapy; electric train driver evaluations) Initial appointment: [phone]; Follow-up appointment: [phone] Aquatic therapy, Sayra Potter [phone] [facility], [email or web address] [address], [place] [address], . [facility] - Pain Management [address] [place] [address] Appointments: [phone] [facility] [email or web address] [phone], [address] , [place] [address]; Also a location in [place]. [facility] [phone] [facility] [address] [place] [address] [facility] - they focus more on back pain, but offer cognitive behavioral therapy. [facility] [phone] [facility] [phone], [address], [address], [place] [address] Liang Owusu MD [phone], insurance claims specialist, [address] [address] [facility] (will treat fibromyalgia and chronic pain syndrome in additionto head & neck disorders; also have [employer] equipment for chronic back pain). [email or web address] ??? [place]: [address] [facility] [address] [facility], [address], [address]; [phone] ??? [place]: [address], [address], [address]; [phone] ??? [place]: [address], [address]; [phone] ??? [place]: [address] [facility] [address], [address]; [phone] Lifestyle Renewal Program - At [facility] The LifeStyle Renewal Program is an integrated program provided by Occupational Therapists to help people work with their symptoms from a variety of treatment techniques. It is customized for each patient. Research shows that an approach which encompasses social and psychological influences as well asphysical factors is effective for decreasing symptoms and improving quality of life. A holistic approach can ease symptoms and improve quality of life. Location: [place] Providers: Occupational Therapists with specialty training. Program: The LifeStyle Renewal Program is specifically tailored for each patient. This specialty program can be beneficial for a wide variety of symptoms and diagnoses, including, but not limited to: Chronic pain Cancer Asthma Depression/Anxiety Myofascial pain syndrome Chronic Fatigue Syndrome Headache/ Migraine Fibromyalgia Low back pain Irritable Bowel Syndrome Rheumatoid Arthritis Other stress related problems Our Program Focus: 1. Deal with the underlying source of pain 2. Establish a partnership between therapist and patient 3. Increase understanding - provide education 4. Use orhu-qcyq-dhrbxv therapies to reframe pain/symptom experience 5. Modify behaviors to improve function 6. Relieve stress 7. Set up support systems 8. Increase physical activity 9. Improve sleep Education is provided in the areas of pacing, exercise, relaxation, sleep hygiene, body mechanics, postural awareness, ergonomics, Qigong, Healing Touch, problem solving and adaptive equipment. How to Contact: General information/scheduling documented in this encounter Progress Notes Bob Lind MD - 10/23/2018 10:30 AM CDT RHEUMATOLOGY CONSULT NOTE This note was generated with voice activated woodyard crane operator software and may contain typographical and word substitution errors. Consultation was requested by: Simona Mendez PA-C, [facility], for arthritis HPI: She is a 48-year-old female. She has been seen in the chiropractic department for chronic neck thoracic and back pain. She also has a history of chronic pelvic and rectal pain. Lumbosacral x-ray August, was normal. I received a large packet, likely over 100 pages of records from [facility] which were reviewed. In July,, white count was 11.4, normal hemoglobin, normal platelets, creatinine 0.9, glucose 120, normal liver functions. Sedimentation rate was 18 on September 20, 2018. CRP was in thenormal range at 0.7, rheumatoid factor negative and FELIPE was also negative. She has had an arthroscopy of the left knee were the diagnoses were left knee fat pad impingement and extra-articular ganglioncyst. MRI of the left knee July, showed soft tissue edema at the medial aspect of the knee, nochondral injuries. She has seen Dr. Perez at [facility]. She has chronic left knee pain, had a surgery 2017. There has been some concern she might have underlying autoimmune disease. She was recommended to see rheumatology. Her left knee pain has been noted to be chronic since arthroscopic procedure in March,. She notes some clicking and anterior knee pain. I see she has been referredto [facility] for possible chronic regional pain syndrome following her arthroscopy. She had beginning in the past lidocaine patches, she does not tolerate NSAIDs. She had initially been seen at [facility] for her left knee arthroscopy. The original arthroscopy was done because ofchronic left knee pain and a periarticular ganglion cyst. She has a history of some other issues including mechanical low back pain, left shoulder impingement, she has had prior cortisone injection foranserine bursitis of the knee and orthopedic and fracture clinic. She had seen Dr. Perez at [facility] on September 02, 2018 as another opinion, he aspirated the knee and it revealed clear straw-colored fluid. She had an injection of Kenalog. Given a Medrol Dosepak. We further reviewed her history. By her report, the initial knee surgery was for a cyst. She recallsalmost immediately after the surgery having significant pain in the region of the surgery, trouble bearing weight and some leg edema. Over time, things have improved, she is able to walk now without a limp. She is taking tramadol, oxycodone and gabapentin through the pain clinic. She still states that her left leg feels heavy year and puffy. She denies other joint pain currently, at 1 point had some soreness in her elbows. She has not had swelling in hands. She has felt somewhat depressed over her symptoms. We reviewed family history which is outlined below but notable is 2 family members who have fibromyalgia. She has gained about 10 lb because less exercise. She denies rashes, mouth sores, alopecia, photosensitivity, Raynaud's, shortness of breath, pleurisy, abdominal symptoms, numbness or tingling. She does endorse achiness in the neck, upper back, lateral hips, has been told she has hip bursitis in the past PMH: Chronic neck thoracic and back pain, obesity, psychogenic syncope, migraine headaches, hysterectomy, chronic pelvic pain and endometriosis, hypertension MEDS: Updated in EMR but notable for: Omeprazole, oxycodone p.r.n., gabapentin 300 mg b.i.d., tramadol 50 mg q.6 hours p.r.n., hydrochlorothiazide, vitamin D ADRs: None FH: Father had psychosis, sister with fibromyalgia, sister with Graves disease and rheumatoid arthritis, brother with hypertension and lupus, another family member with fibromyalgia SH: Never smoker, social alcohol, , 2 children, 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 Wt: 197 lb General: NAD. Eyes: Externally clear. Mouth: Moist mucous membranes. No ulcers. Lymph: No cervical or groin adenopathy. Chest: CTA. Heart: RRR, no M/R/G. Abdomen: Bowel sounds present, soft, nontender, no palpable HSM. Musculoskeletal: All 4 limbs examined. The joint exam was negative for synovitis, deformity, or instability with the exception of: No swollen joints. She had multiple myofascial tender points includingneck, trapezius muscles, gluteal muscles, greater trochanters, medial knees. Examination of the leftknee reveals about a 2 in scar medially, she was locally tender about the scar but there was no effusion in the knee, no obvious crepitus in the knee, no warmth or erythema. She has some allodynia overthe scar. Neurologic: Intact upper and lower extremity muscle strength and sensation Cutaneous: No rashes Spine: Good range of motion ASSESSMENT: 1: Fibromyalgia 2: Chronic pain left knee following surgery, at this point without significant remaining intra or extra-articular pathology 3: Do not feel there is a underlying rheumatic disease or autoimmune process going on here PLAN: 1: Long discussion with the patient. I do not believe she has any underlying autoimmune condition. Her lab work shows normal CRP, negative FELIPE, negative rheumatoid factor. She has not had warm swollen joints. Her pain in the left knee came on immediately following surgery. She does appear to have background fibromyalgia and sometimes a traumatic event including a surgery can trigger localized pain. She may have had some injury to her geniculate nerves in the area. Today she is able to walk without alimp and essentially has an unremarkable knee exam with the exception of localized tenderness. 2: I agree with the current approach which is gabapentin and analgesics. I think that this will slowly improve with time. I have suggested the addition of Cymbalta 20 mg daily which I think would help with both her mood and the pain. The dose could be titrated up and she plans to follow up with her primary care provider, Simona Mendez PA-C in the next few weeks. Probably the goal would be to get upto 60 mg daily. Likely the tramadol should be tapered during that time because of some interaction with Cymbalta with raising serotonin levels. 3: I recommend ongoing follow-up at the [facility] pain clinic regarding her opioid analgesics and hopefully those can eventually be tapered off. I do not feel she needs an EMG/nerve conduction study.She may be a candidate for geniculate nerve ablation if her pain were to persist. At this time, I donot feel she needs follow-up in Rheumatology unless she developed significant knee swelling in whichcase we would want her see her back for aspiration and sending for cell count and crystals and so forth. She was given handout on fibromyalgia for context. Multiple questions answered. Simona Mendez PA-C, [facility] copy to Oh Perez MD, [facility], [facility] [place] copy to Kolby Boston PA-C, [facility] [place]. TT 60 min, at least 30 min spend counselling and educating on the issues as noted above documented in this encounter Plan of Treatment Not on filedocumented as of this encounter Visit Diagnoses Diagnosis Fibromyalgia - Primary Mylagia and myositis, unspecified Chronic pain of left knee Pain in joint, lower leg Chronic pain syndrome documented in this encounter Care Teams Dairy Worker Relationship Specialty Start Date End Date Chirag Metzger PA-C PCP - General Physician Stone Driller Helper 07/06/[id number] [place] [id number] documented as of this encounter
--- OUTSIDE RECORDS SUMMARY | 2022-03-07 11:21 | XMS_ITS | Encounter Summary ---
:1970 Author Organization [employer] Address [address] [place] [address] Care Team Providers Name Role Phone Chirag Metzger PA-C Primary Care Provider Reason for Visit Reason Comments NECK PAIN BACK PAIN BACK PAIN, LOW Encounter Details Date Type Department Care Team Description 02/26/2018 Office Visit [facility] [place], Segmental and somatic dysfun ction of cervical region (Primary Dx); [address] [facility] [place]azaro [place] Segmental and somatic dysfun ction of thoracic region; [place] [id number] Segmental and somatic dysfun ction of sacral region; [phone] Cervicalgia; Pain in thoraci c spine; Low back pain, non-specific Social History Tobacco Use Types Packs/Day Years Used Date Smoking Tobacco: Never Smokeless Tobacco: Never Alcohol Use Standard Drinks/Week Comments Yes 3 (1 standard drink = 0.6 oz pure alcoho l) Sex Assigned at Date Recorded Not on file documented as of this encounter Progress Notes Enoc Blanca [place] - 02/26/2018 7:15 AM CDT Marla Cuellar is 43 yr [...] non-specific documented in this encounter Care Teams Yard Clerk Relationship Specialty Start Date End Date Chirag Metzger PA-C PCP - General Physician Singing Telegram Performer 07/06/16 [address] [place] [address] documented as of this encounter
--- OUTSIDE RECORDS SUMMARY | 2022-03-07 11:21 | XMS_ITS | Encounter Summary ---
:1970 Author Organization [employer] Address [address] [place] [address] Care Team Providers Name Role Phone Chirag Metzger PA-C Primary Care Provider Reason for Visit Reason Comments NECK PAIN BACK PAIN BACK PAIN, LOW Encounter Details Date Type Department Care Team Description 04/01/2018 Office Visit [facility] [place], Segmental and somatic dysfun ction of cervical region; [address] [place]az[place] Segmental and somatic dysfun ction of thoracic region; [place] [phone] Segmental and somatic dysfun ction of sacral region; [phone] Cervical pain ( neck); Acute thoracic back [...] encounter Progress Notes Enoc Blanca [place] - 04/01/2018 10:00 AM CST Marla Cuellar is 43 yr female here [...] 3 TIMES PER DAY. Enoc Blanca [place] TENANT GOVERNOR documented in this encounter Plan of Treatment [...] back documented in this encounter Care Teams Roll Builder Relationship Specialty Start Date End Date Chirag Metzger PA-C PCP - General Physician Kiln Packer 07/06/[id number] [place] [address] [id number] documented as of this encounter
--- OUTSIDE RECORDS SUMMARY | 2022-03-07 11:21 | XMS_ITS | Encounter Summary ---
:1970 Author Organization [employer] Address [address] [place] [address] Care Team Providers Name Role Phone Chirag Metzger PA-C Primary Care Provider Reason for Visit Reason Comments NECK PAIN BACK PAIN BACK PAIN, LOW Encounter Details Date Type Department Care Team Description 11/12/2018 Office Visit [facility] [place], Segmental and somatic dysfun ction of cervical region; [address] [place] Segmental and somatic dysfun ction of thoracic region; [place] [id number] Segmental and somatic dysfun ction of sacral region; [phone] Cervical pain ( neck); Acute thoracic back [...] encounter Progress Notes Enoc Blanca [place] - 11/12/2018 10:45 AM CDT Marla Cuellar is 43 yr female here for Chief Complaint Patient presents with ??? NECK PAIN ??? BACK PAIN ??? BACK PAIN, LOW Onset of neck pain with headaches, mid back and low back pain that started last week. Improvement. Not currently seeing other providers for this [...] non-specific documented in this encounter Care Teams Ordnance Truck Installation Mechanic Relationship Specialty Start Date End Date Chirag Metzger PA-C PCP - General Physician Ventilated Rib Fitter 07/06/16 [address] [place], [place] [id number] documented as of this encounter
--- OUTSIDE RECORDS SUMMARY | 2022-03-07 11:21 | XMS_ITS | Encounter Summary ---
:1970 Author Organization [employer] Address [address] [place] [address] Care Team Providers Name Role Phone Chirag Metzger PA-C Primary Care Provider Reason for Referral Therapies (Routine) - Closed Specialty Diagnoses / Procedures Referred By Contact Refer red To Contact Diagnoses Fibromyalgia Chronic pain of left knee Chronic bilateral low back pain, with sciatica presence unspecified (HRC) Zaira Ortiz PA-C [address] [place], [place] [address] Referral ID Status Reason Start Date Expiration Date Visits Requ ested Visits Authorized [id number] Closed 02/14/2019 04/15/2019 1 1 Scheduling Instructions This order is your clinician's recommend ation for a service and is not an insurance referral which authorizes payment. The r ecommended service and/or location may not be covered by your insurance plan. Please c all the number on your insurance card to find out your specific benefits and coverage for the recommended services and/or location. If you need help scheduling the recommen ded services, please ask your clinician's staff to assist you. Reason for Visit Reason Comments Follow-up Encounter Details Date Type Department Care Team Description 02/14/2019 Office Visit Zaira Galindo Fibromyalg ia (Primary Dx); Rheumatology [place] Chronic pain syndrome; [address] [place] [address] Polyarthralgia; [place] [address] Blvd Chronic pain of left knee; [phone] [place], [place] Leg pain, diffuse, left; [address] Chronic bilateral low back pain, with sc iatica presence unspecified; [phone] Family history of systemic lupus erythematosus; (Work) Uveitis Social History Tobacco Use Types Packs/Day Years [...] Pulse 74 02/14/2019 3:53 PM CDT Temperature - - Respiratory Rate - - Oxygen Saturation - - Inhaled Oxygen Concentration - - Weight 96.2 kg (212 lb) 02/14/2019 3:53 PM CDT Height - - Body Mass Index 39.41 07/06/2016 8:17 AM MATERIALS TECH documented in this encounter Patient Instructions Patient InstructionsZaira Ortiz PA-C - 02/14/2019 3:45 PM CDT 1. Increase Cymbalta to 40 mg/day -Could consider increasing up to 60 mg/day in a month or two if needed 2. Gabapentin 600 mg at bedtime for 1 week, could increase morning and afternoon doses to 600 mg as well-I would try each dose for 7 days before increase 3. Celebrex 100 mg 1-2 times daily -No additional ibuprofen, advil, aleve, motrin 4. You can take take tylenol (acteminophen) up to 3000 mg/day for breakthrough pain 5. Continue with the epilepsy physician and topical therapy for the uveitis -If it is refractory to treatment or is recurrent they may send you back to us to discuss a medication such as methotrexate 6. Labs today-I will send you the results 7. Try to get restorative sleep. Low-impact exercise-yoga, vijay chi, piliates, swimming, walking, stationary bike, ect. 8. Set up physical therapy 9. Follow up as needed documented in this encounter Progress Notes Zaira Ortiz PA-C - 02/14/2019 3:45 PM CDT Rheumatology Clinic Note Encounter Date: 02/14/2019 Subjective Chief complaint: Follow up fibromyalgia, chronic pain, chronic left knee pain, recent diagnosis of uveitis History of present illness: Keara Ward returns today for follow-up, last seen by Dr. Lind in an initial consultation and 10/2018. Please refer to Dr. Lind's initial consultation note for a full updated history. She has a history of fibromyalgia, chronic pain, chronic neck and back pain-has seen the chiropractic department, chronic pelvis pain and endometriosis s/p hysterectomy, psychogenic syncope, migraine headaches and hypertension. In July,, white count was 11.4, normal hemoglobin, normal platelets, creatinine 0.9, glucose 120, normal liver functions. Sedimentation rate was 18 on September 20, 2018. CRP was in the normal range at 0.7, rheumatoid factor negative and FELIPE was also negative. She had initially been seen at [facility]. She underwent a left knee arthroscopy for chronicleft knee pain and a periarticular ganglion cyst. Diagnosis were left knee fat pad impingement and extra-articular ganglion cyst. She has had some chronic left knee pain since arthroscopic procedure 2017. MRI of the left knee July, showed soft tissue edema at the medial aspect of theknee, no chondral injuries. She saw Dr. Perez at [facility] in August 2018, for anotheropinion, he aspirated the left knee and it revealed a clear straw-colored fluid and was given a cortisone injection as well as a Medrol Dosepak.There has been some concern she might have underlying auto immune disease and she was recommended to see rheumatology. She was also referred to the [facility] for possible chronic regional pain syndrome following her arthroscopy. She has also had some mechanical neck and back pain, left shoulder impingement, and pes anserine bursitis-had a cortisone injection for this. In discussions with Dr. Lind at her initial visit, she recalled almost immediately after her left knee surgery having significant pain in the region of surgery, trouble bearing weight and some left edema. Dr. Lind had received a note from [facility]. Keara had been seen at the [facility] for uveitis on topical therapy. A panel of labs were suggested to rule out systemic disease. She was then seen by Simona Mendez PA-C at [facility] on February 10. She had woken up with some intense back pain. The note referenced that she had been going to the Pain Clinic and is using oxycodone 3-4 times per day and gabapentin. Laboratory results show negativeHLA-B27, negative Lyme screen, normal angiotensin-converting enzyme, negative RPR, sed rate of 27 and CRP 1.0. It was recommended to follow up in rheumatology. I did not have the recent clinic notes orlab test results to personally review by the time of our visit today. Interval History Reviewed: This is about a 4 month follow-up for her. She has multiple questions and concerns that she wanted to discuss today. She requests I would like to have all of the laboratory tests for lupus and I would like to have a biopsy. She is concerned that she may have lupus given her family history. She hashad a negative FELIPE. She denies fevers, weight loss, rashes, photosensitivity, oral/nasal ulcers, alopecia, pleurisy/pleuritic chest pain/shortness of breath, Raynaud's, numbness/tingling, abdominal pain, urinary complaints, and inflammatory joint pain. She has achiness in the neck, upper and lower back, and lateral hips. Her left low back/hip and leg are painful, the entire left leg feels heavy and swollen, difficult to stand and walk. She reports that this is not new, has been a chronic issue, and ongoing for many months. She was recently diagnosed with bilateral uveitis. She has seen [facility]. I do not have the records to personally review at the time our visit today. She reports problems with pain, rednessand watering of the eyes for the past 2 months-just diagnosed with uveitis in the last ?1 week or so. This is her first episode. She is currently being treated with topical therapies. Denies skin rashes suggestive of psoriasis, inflammatory back pain or stiffness, and bloody/mucousy/nocturnal diarrhea. She remains on Cymbalta 20 mg/day and has found this to be helpful for her musculoskeletal pain, shivalskathrine takes gabapentin 300 mg t.i.d., tolerating both of these without noticeable side effects. She takes occasional anti-inflammatories. She takes Roxicodone 5 mg 4 times daily, prescribed through the pain clinic. She is no longer taking tramadol. She does not sleep well. She does not exercise. She has felt somewhat frustrated and depressed over her symptoms. Review of systems: Comprehensive review of systems form filled out by the patient for today's visit was reviewed, sent to [facility] and is as noted above and/or notable for: weight gain, weakness, dry mouth, depression, and problems sleeping. Family History: Father had psychosis, sister with fibromyalgia, sister with Graves disease and rheumatoid arthritis, brother with hypertension and lupus, another family member with fibromyalgia. Social History: . 2 children. 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 Never smoker. Social alcohol use. Patient Active Problem List Diagnosis Date Noted ??? Chronic pain syndrome 10/23/2018 ??? Fibromyalgia 10/23/2018 ??? Chronic pain of left knee 10/23/2018 ??? Low back pain, non-specific (HRC) 10/26/2017 ??? Segmental and somatic dysfunction of cervical region 07/14/2016 ??? Segmental and somatic dysfunction of thoracic region 07/14/2016 ??? Segmental and somatic dysfunction of sacral region 07/14/2016 ??? Cervicalgia 07/14/2016 ??? Pain in thoracic spine ([facility]) 07/14/2016 ??? Endometriosis 07/06/2016 ??? Primary open angle glaucoma of both eyes, mild stage 07/06/2016 ??? Spasm of back muscles 04/03/2016 ??? Obese ([facility]) 09/17/2013 Overview Note: Currently working with obesity clinic. ??? Migraine, chronic, without aura, intractable, with status migrainosus 09/20/2012 ??? Syncope, psychogenic ([facility]) Overview Note: stress reaction No Known Allergies Objective EXAM Vitals: Per flow sheet. General: Well-developed, well-nourished. Uncomfortable appearing. Alert and cooperative. Eyes: Injected sclerae bilateral eyes. Mouth: No oral ulcers. Moist mucous membranes. Normal salivary pooling. Lymph: No cervical or submandibular adenopathy. Chest: CTA. No wheezing. Heart: RRR, no M/R/G. Skin: Warm and dry. No rash. No Raynaud changes. No digital ischemia or open wound ulcers. No nailfold capillary changes. Neuro: Antalgic gait secondary to left low back/hip/knee/leg pain. Normal muscle bulk and tone. Sensation intact in bilateral extremities. No focal deficits. MSK: All 4 extremities were examined today. There is no active synovitis/dactylitis/joint effusion/inflammatory arthritis in any additional joints of the upper or lower extremities. She had multiple myofascial tender points including neck, trapezius muscles, gluteal muscles, greater trochanters, and medial knees. Examination of the left knee reveals about a 2 inch scar medially, some local tendernessover the scar and diffusely in the knee but left knee is without effusion/warmth/erythema, no significant crepitation. I cannot appreciate any significant swelling or edema in the left lower extremity as compared to the right. Assessment: 1. Fibromyalgia/chronic pain 2. Chronic left knee pain following surgery, chronic left low-back/buttock/hip pain and chronic leftleg pain and heaviness 3. Chronic neck and low back pain 4. Uveitis, on topical therapy; unlikely due to underlying systemic rheumatic autoimmune disease 5. Overweight RAPID 3 score = if completed by patient will be scanned into the sdoc. Plan: 1. Complex visit with multiple concerns addressed and questions answered. We reviewed her history, clinical symptoms, and past/recent laboratory test results together today. I am not finding anything clinically to suggest lupus or any other underlying autoimmune condition to account for her symptoms or recent uveitis diagnosis. Her lab work shows negative FELIPE which I explained to her would make a diagnosis of lupus very unlikely, rheumatoid factor, negative HLA- B27, negative Lyme screen, normal BIMAL,negative RPR, and prior normal inflammatory markers (recnet slight elevations in inflammatory markers could be related to the uveitis). She has has no visibly swollen joints, no synovitis or effusion on exam today. Her left knee and left leg pain and heaviness has been chronic, exact etiology is stillunclear but it did develop following her prior surgery, and today her left knee and leg exam is essentially unremarkable without synovitis or effusion with the exception of diffuse tenderness in the left and knee. She also questioned a possible biopsy to rule out lupus but I have explained to her thatwe would need a clinical or laboratory finding such as a skin rash, alopecia, or kidney involvement,ect., to biopsy which she does not have currently. 2. We discussed that uveitis can be associated with autoimmune inflammatory conditions, such as ankylosing spondylitis, the spondyloarthropathies, ect., however a majority of cases are not. Again, I donot feel that her uveitis is likely the result of an underlying systemic rheumatic autoimmune disease based on clinical symptoms and recent laboratory test results. The exact etiology is unclear and may be idiopathic. I explained that typically uveitis, especially the initial episode, is treated with topical therapies and if it were to be refractory to treatment or recurrent that is when Ophthalmology may get rheumatology involved to discuss systemic immune suppression with medications such as methotrexate. Recommended that she continue following with ophthalmology at this point. 3. We have agreed to complete the additional rheumatoid and lupus testing per her request for completeness. Blood work for CCP, AGUILA, double-stranded DNA and complements C3 and C4 were ordered today. 4. I believe that it is likely that a majority of her pain is due to underlying fibromyalgia. We again reviewed this diagnosis. I would suggest increasing the dose of Cymbalta up to 40 mg/day which canhelp with both mood and pain, and she could consider another dose increase to max dose of 60 mg/day as needed. She could also gradually increase the gabapentin dose-600 mg at bedtime for a week, and then slowly uptitrate the morning and afternoon doses as needed. Recommended a trial of Celebrex 100 mgb.i.d., she will take this with food and she knows to avoid additional NSAIDs but she can take acetaminophen prn as needed. She can follow up with her primary care provider for further dose adjustmentsas needed moving forward. She is no longer taking tramadol. Encouraged restorative sleep and low impact aerobic exercise. Referral to physical therapy for her fibromyalgia and left leg/knee pain was provided today. 5. I recommend ongoing follow up at the [facility] regarding her opioid analgesics. Shemay be a candidate for geniculate nerve ablation if her left knee pain were to persist. Encouraged follow up with orthopedics as needed 6. At this time, she will follow up in rheumatology as needed. She will follow up if she was to develop significant new symptoms or if her uveitis were to be refractory or recurrent and systemic therapy may be indicated. Plan discussed with the patient in detail, verbalized understanding and agreement with this approach, all questions answered. Zaira Ortiz PA-C Copy to: Simona Mendez PA-C, [facility] Kolby Boston PA-C, [facility] [place]. ?? documented in this encounter Plan of Treatment Scheduled Referrals Name Type Priority Associated Diagnoses Order S [facility] Physical Therapy Referral Routine Fibromyalgia Ordered: 02/14/2019 Chronic pain of left knee Chronic bilateral low back pain, with sciatica presence unspecified documented as of this encounter Results Extractable Nuclear Antigen Antibodies (02/14/2019 4:59 PM CDT) P athologist Signature NGUYEN/WET PROCESS OPERATOR 1 0 - 40 02/16/2019 [facility] (AGUILA) Ab, IGG AU/mL 4:12 PM CDT LABORATORIES Comment: INTERPRETIVE INFORMATION: Nguyen/WET PROCESS OPERATOR (AGUILA ) Antibody, IgG ??29 AU/mL or Less ............. Negati ve ??30 - 40 AU/mL ................ Equivo zenaida ??41 AU/mL or Greater .......... Positi ve Nguyen/WET PROCESS OPERATOR antibodies are frequently seen in patients with mixed connective tissue disease (MCTD) and are also associated with other systemic autoimmune rheumatic dise ases (SARDs) such as systemic lupus erythematosus (SLE), syst emic sclerosis, and myositis. Antibodies targeting the Nguyen /WET PROCESS OPERATOR antigenic complex also recognize Nguyen antigens, therefore , the Nguyen antibody response must be considered when interpr eting these results. Performed by [email or web address], [address] [place] [address] [email or web address], Crow Duran MD, Lab. Director AGUILA To Nguyen (Sm) 0 0 - 40 AU/mL 02/16/2019 4:12 PM CDT [facility] Antibody Comment: INTERPRETIVE INFORMATION: Nguyen (AGUILA) An [...] - 40 AU/mL 9 4:12 PM CDT [facility] IGG (AGUILA) Comment: INTERPRETIVE INFORMATION: SSA-52 (Ro52) [...] 40 AU/mL 02/16/2019 4:1 2 PM CDT [facility] (AGUILA) Comment: INTERPRETIVE INFORMATION: SSB (La) (AGUILA) [...] - 40 AU/mL 02/16/2019 4:12 PM CDT [facility] (AGUILA) Comment: REFERENCE INTERVAL: SSA-60 (Ro60) [...] Zaira Ortiz PA-C LAB_1 Performing Organization Address City/[facility] Phon e Number [facility] [address] [phone] CCPIG - Cyclic Citrullinated Peptide AB (02/14/2019 4:59 PM CDT) [facility] Method Time Signature Anti-CCP Antibody 1 <7 U/mL 02/17/2019 [facility] 12:57 PM CENTRAL LAB CDT Anti-CCP Antibody Negative Negative 02/17/2019 [facility] Interpretation 12:57 PM CENTRAL LAB CDT Specimen Anatomical Collection Method / Collection Time Recei steven Time (Source) Location / Volume Laterality Blood Venipuncture / 02/14/2019 4:59 02/14/2019 4:59 Unknown PM CDT PM CDT Zaira Ortiz PA-C LAB_1 Performing Organization Address City/[facility] Phon e Number [place] [facility] [address] [address] DNA - Anti-dsDNA Antibody (02/14/2019 4:59 PM CDT) [facility] Method Time Signature Anti-DNA Ab <1:10 <1:10 02/17/2019 [facility] 10:51 AM LABORATORY CDT Anti-DNA Antibody Negative Negative 02/17/2019 [facility] Interpretation 10:51 AM LABORATORY CDT Specimen Anatomical Collection Method / Collection Time Recei steven Time (Source) Location / Volume Laterality Blood Venipuncture / 02/14/2019 4:59 02/14/2019 4:59 Unknown PM CDT PM CDT Zaira Ortiz PA-C LAB_1 Performing Organization Address [facility] Phon e Number [facility] [address] [place] [address] C4 - C4 Complement (02/14/2019 4:59 PM CDT) athologist Signature C4 Complement 51.0 15.0 - 02/14/2019 [facility] 57.0 mg/dL 9:30 PM CDT LABORATORY Specimen Anatomical Collection Method / Collection Time Recei steven Time (Source) Location / Volume Laterality Blood Venipuncture / 02/14/2019 4:59 02/14/2019 4:59 Unknown PM CDT PM CDT Zaira Ortiz PA-C LAB_1 Performing Organization Address [facility] Phon e Number [facility] [address] [place] [address] C3 - C3 Complement (02/14/2019 4:59 PM CDT) athologist Signature C3 Complement 158 83 - 193 02/14/2019 [facility] mg/dL 9:30 PM CDT LABORATORY Specimen Anatomical Collection Method / Collection Time Recei steven Time (Source) Location / Volume Laterality Blood Venipuncture / 02/14/2019 4:59 02/14/2019 4:59 Unknown PM CDT PM CDT Zaira Ortiz PA-C LAB_1 Performing Organization Address [facility] Phon e Number [facility] [address] [place] [address] documented in this encounter Visit Diagnoses Diagnosis Fibromyalgia - Primary Mylagia and myositis, unspecified Chronic pain syndrome Polyarthralgia Pain in joint, multiple sites Chronic pain of left knee Pain in joint, lower leg Leg pain, diffuse, left Chronic bilateral low back pain, with sc iatica presence unspecified Family history of systemic lupus erythem atosus Family history of skin conditions Uveitis Unspecified iridocyclitis documented in this encounter Care Teams Drawbench Operator Helper Relationship Specialty Start Date End Date Chirag Metzger PA-C PCP - General Physician Station Helper 07/06/16 [address] [place] [address] documented as of this encounter
--- OUTSIDE RECORDS SUMMARY | 2022-03-07 11:21 | XMS_ITS | Encounter Summary ---
:1970 Author Organization [employer] Address [address] [place] [address] Care Team Providers Name Role Phone Chirag Metzger PA-C Primary Care Provider Reason for Visit Reason Comments NECK PAIN BACK PAIN BACK PAIN, LOW HEADACHE Encounter Details Date Type Department Care Team Description 07/12/2018 Office Visit [facility] [place], Segmental and somatic dysfun ction of cervical region; [address] Enoc Lazaro [place] Segmental and somatic dysfun ction of thoracic region; [place] [address] Segmental and somatic dysfun ction of sacral region; [phone] Cervical pain ( neck); Acute thoracic back pain, unspecified back pain laterality; Low back pain, non-specific; Headache, unspe cified headache type; Spasm of back m uscles Social History Tobacco Use Types Packs/Day Years Used Date Smoking Tobacco: Never Smokeless Tobacco: Never Alcohol Use Standard Drinks/Week Comments Yes 3 (1 standard drink = 0.6 oz pure alcoho l) Sex Assigned at Date Recorded Not on file documented as of this encounter Progress Notes Enoc Blanca DC - 07/12/2018 11:45 AM CST Marla Cuellar is 43 yr female here for Chief Complaint Patient presents with ??? NECK PAIN ??? BACK PAIN ??? BACK PAIN, LOW ??? HEADACHE Onset of neck pain with headaches, mid back and low back pain that started last week. Improvement. Review of systems: Denies numbness, tingling, or [...] 6. Low back pain, non-specific (HRC) 7. Headache, unspecified headache type 8. Spasm of back muscles Plan: Diagnostic plan: [...] 3 TIMES PER DAY. Enoc Blanca DC RANS CONTACT REPRESENTATIVE documented in this encounter Plan of [...] pain laterality (HRC) Low back pain, non-specific Headache, unspecified headache type Spasm of back muscles Other symptoms referable to back documented in this encounter Care Teams Stripper Opaquer Relationship Specialty Start Date End Date Chirag Metzger PA-C PCP - General Physician Construction Specialist 07/06/16 [address] [place], [place] [address] documented as of this encounter
--- OUTSIDE RECORDS SUMMARY | 2022-03-07 11:21 | XMS_ITS | Encounter Summary ---
:1970 Author Organization [employer] Address [address] [place] [address] Care Team Providers Name Role Phone Chirag Metzger PA-C Primary Care Provider Reason for Visit Reason Comments NECK PAIN BACK PAIN BACK PAIN, LOW Encounter Details Date Type Department Care Team Description 06/18/2017 Office Visit [facility] [place], Segmental and somatic dysfun ction of cervical region (Primary Dx); [address] [facility] Enoc Lazaro DC Segmental and somatic dysfun ction of thoracic region; [place] [address] Segmental and somatic dysfun ction of sacral region; [phone] Cervicalgia; Pain in thoraci c spine; Low back pain ( HRC) Social History Tobacco Use Types Packs/Day Years Used Date Smoking Tobacco: Never Smokeless Tobacco: Never Alcohol Use Standard Drinks/Week Comments Yes 3 (1 standard drink = 0.6 oz pure alcoho l) Sex Assigned at Date Recorded Not on file documented as of this encounter Progress Notes Enoc Blanca DC - 06/18/2017 7:15 AM CST Marla Cuellar is 43 yr [...] in thoracic spine (HRC) 6. Low back pain ([facility]) Plan: Diagnostic plan: No further testing/evaluation [...] 3 TIMES PER DAY. Enoc Blanca DC PLATER documented in this encounter Plan of Treatment [...] (HRC) Pain in thoracic spine Low back pain (HRC) Lumbago documented in this encounter Care Teams Vest Finisher Relationship Specialty Start Date End Date Chirag Metzger PA-C PCP - General Physician Automotive Lot Attendant 07/06/16 [address] [place] [address] documented as of this encounter
--- OUTSIDE RECORDS SUMMARY | 2022-03-07 11:21 | XMS_ITS | Encounter Summary ---
:1970 Author Organization [employer] Address [address] [place] [address] Care Team Providers Name Role Phone Chirag Metzger PA-C Primary Care Provider Reason for Visit Reason Comments Dental Conversion [facility] EDR to [place] convers ion Encounter Details Date Type Department Care Team Description 10/26/2016 Dental Conversion [place] General Interface, In E dr [facility] Dentistry Dental Conversion [address] [place], [place] [id number] Social History Tobacco Use Types Packs/Day Years [...] on filedocumented in this encounter Care Teams Cross Tie Tram Loader Relationship Specialty Start Date End Date Chirag Metzger PA-C PCP - General Physician Crayon Molding Machine Operator 07/06/[address] [place] [address] documented as of this encounter
--- OUTSIDE RECORDS SUMMARY | 2022-03-07 11:21 | XMS_ITS | Encounter Summary ---
:1970 Author Organization [employer] Address [address] [place] [address] Care Team Providers Name Role Phone Chirag Metzger PA-C Primary Care Provider Reason for Visit Reason Comments NECK PAIN BACK PAIN BACK PAIN, LOW Encounter Details Date Type Department Care Team Description 06/14/2017 Office Visit [facility], Segmental and somatic dysfun ction of cervical region (Primary Dx); [address] [facility] Enoc Lazaro DC Segmental and somatic dysfun ction of thoracic region; [place] [phone] Segmental and somatic dysfun ction of sacral region; [phone] Cervicalgia; Pain in thoraci c spine; Low back pain ( HRC) Social History Tobacco Use Types Packs/Day Years Used Date Smoking Tobacco: Never Smokeless Tobacco: Never Alcohol Use Standard Drinks/Week Comments Yes 3 (1 standard drink = 0.6 oz pure alcoho l) Sex Assigned at Date Recorded Not on file documented as of this encounter Progress Notes Enoc Blanca DC - 06/14/2017 1:30 PM CST Marla Cuellar is 43 yr female here for Chief Complaint Patient presents with ??? NECK PAIN ??? BACK PAIN ??? BACK PAIN, LOW Onset of neck pain with headaches, mid back and low back pain that started last weeks. Flare-up of pain. Review of systems: Denies [...] 3 TIMES PER DAY. 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
--- OUTSIDE RECORDS SUMMARY | 2022-03-07 11:21 | XMS_ITS | Encounter Summary ---
:1970 Author Organization [employer] Address [address] [place] [address] Care Team Providers Name Role Phone Chirag Metzgre PA-C Primary Care Provider Encounter Details Date Type Department Care Team Description 03/06/2018 Lab Visit [facility] Fatigue, unspecified type; [address] Essential hypertension; [place] [id number] Annual physical exam [phone] Social History Tobacco Use Types Packs/Day Years Used Date Smoking Tobacco: Never Smokeless Tobacco: Never Alcohol Use Standard Drinks/Week Comments Yes 3 (1 standard drink = 0.6 oz pure alcoho l) Sex Assigned at Date Recorded Not on file documented as of this encounter Plan of Treatment Not on filedocumented as of this encounter Procedures Procedure Name Priority Date/Time Associated Diagnosis Comme nts LIPID PANEL AND Routine 03/06/2018 3:12 PM Annual physical exa m Results for this DIRECT LDL(IF CDT procedure are in NEEDED) the results section. VITAMIN D Routine 03/06/2018 3:12 PM Fatigue, unspecified R esults for this 25-HYDROXY, TOTAL CDT type procedure are in the results section. CREATININE / GFR Routine 03/06/2018 3:12 PM Essential Resul ts for this CDT hypertension procedure are i n the results section. COMPLETE BLOOD Routine 03/06/2018 3:12 PM Fatigue, unspecified Results for this COUNT-NO DIFF CDT type procedure are in the results section. ELECTROLYTE PANEL Routine 03/06/2018 3:12 PM Essential Resu lts for this CDT hypertension procedure are i n the results section. TSH, SENSITIVE (WITH Routine 03/06/2018 3:12 PM Fatigue, unspe cified Results for this REFLEX) CDT type procedure are i n the results section. HGB A1C Routine 03/06/2018 3:12 PM Fatigue, unspecified R esults for this CDT type procedure are i n the results section. ALT (SGPT) Routine 03/06/2018 3:12 PM Fatigue, unspecified R esults for this CDT type procedure are i n the results section. AST Routine 03/06/2018 3:12 PM Fatigue, unspecified R esults for this CDT type procedure are i n the results section. BUN Routine 03/06/2018 3:12 PM Essential Results f or this CDT hypertension procedure are i n the results section. [...] - 03/06/2018 4:41 PM CDT Performed at [facility], [facility], [place] [address] CLIA number [id number] Chirag Metzger PA-C LAB_1 Performing Organization Address City/State/ZIP Code Phon e Number PN SOFT [address] [place] [address] TSH with Free T4 (if TSH Abnormal) (03/06/2018 3:12 PM CDT) athologist Signature Thyroid 0.70 0.30 - PN SOFT Stimulating 4.50 Hormone uIU/mL Specimen Anatomical Collection Method Collection Time Receive d Time (Source) Location / / Volume Laterality 03/06/2018 3:12 PM 8 6:17 CDT PM CDT Narrative PN SOFT - 03/06/2018 7:05 PM CDT [place] [address] CLIA number [id number] Chirag Metzger PA-C LAB_1 Performing Organization Address [place] Phon e Number PN SOFT [address] [place] [address] [phone] (ABNORMAL) Vitamin D 25-Hydroxy (In house) (03/06/2018 [...] - 03/06/2018 7:08 PM CDT Performed at [address] [address] CLIA number [id number] Chirag Metzger PA-C LAB_1 Performing Organization Address [facility] Phon e Number PN SOFT [address] [place] [address] (ABNORMAL) Lipid Panel - LDLD If Trig High (03/06/2018 3:12 PM CDT) [facility] Method Time Signature Cholesterol 203 (H) 0 [...] - 03/06/2018 6:59 PM CDT Performed at [facility], [address] [place], [place] [id number] CLIA number [id number] Chirag Metzger PA-C LAB_1 Performing Organization Address [place] Phon e Number PN SOFT [address] [place] [address] (ABNORMAL) Electrolyte Panel (03/06/2018 3:12 PM CDT) athologist Signature Sodium 139 136 - 145 [...] - 03/06/2018 6:59 PM CDT Performed at [facility], [address] [place] [address] CLIA number [id number] Chirag Metzger PA-C LAB_1 Performing Organization Address [facility] Phon e Number PN SOFT [address] [place] [address] Creatinine (03/06/2018 3:12 PM CDT) athologist Signature [...] - 03/06/2018 6:59 PM CDT Performed at [facility], [address] [place], [place] [id number] CLIA number [id number] Chirag Metzger PA-C LAB_1 Performing Organization Address City/[facility]/ZIP Code Phon e Number PN SOFT [address] [place] [address] BUN (03/06/2018 3:12 PM CDT) P athologist Signature Blood Urea <10 9 - 26 PN SOFT Nitrogen mg/dL Specimen Anatomical Collection Method Collection Time Receive d Time (Source) Location / / Volume Laterality 03/06/2018 3:12 PM 8 4:51 CDT PM CDT Narrative PN SOFT - 03/06/2018 6:59 PM CDT Performed at [facility], [address] [place] [place] [address] CLIA number [id number] Chirag Metzger PA-C LAB_1 Performing Organization Address [place] Phon e Number PN SOFT [address] [place] [address] Aspartate Aminotransferase (AST) (03/06/2018 3:12 PM CDT) Patholo gist Method Time Signature Aspartate 20 10 - 40 PN SOFT Aminotransferase U/L Specimen Anatomical Collection Method Collection Time Receive d Time (Source) Location / / Volume Laterality 03/06/2018 3:12 PM 8 4:51 CDT PM CDT Narrative PN SOFT - 03/06/2018 6:59 PM CDT Performed at [address] [address] CLIA number [id number] Chirag MOREAU-Mayelin LAB_1 Performing Organization Address City/[facility]/ZIP Code Phon e Number PN SOFT [address] [place] [address] Alanine Aminotransferase - ALT (SGPT) (03/06/2018 3:12 PM CDT) Patholo gist Method Time Signature Alanine 17 9 - 55 PN SOFT Aminotransferase U/L Specimen Anatomical Collection Method Collection Time Receive d Time (Source) Location / / Volume Laterality 03/06/2018 3:12 PM 8 4:51 CDT PM CDT Narrative PN SOFT - 03/06/2018 6:59 PM CDT Performed at [facility], [address] [place] [address] CLIA number [id number] Chirag Metzger PA-C LAB_1 Performing Organization Address City/[facility] Code Phon e Number PN SOFT [address] [place] [address] (ABNORMAL) Hemoglobin A1C Glycosylated (03/06/2018 3:12 PM CDT) P athologist Signature HGB A1C 5.9 (H) 4.0 - 5.6 % PN SOFT Specimen Anatomical Collection Method Collection Time Receive d Time (Source) Location / / Volume Laterality 03/06/2018 3:12 PM 8 8:54 CDT PM CDT Narrative PN SOFT - 03/06/2018 10:56 PM CDT Performed at [address] [address] CLIA number [id number] Chirag Metzger PA-C LAB_1 Performing Organization Address City/[facility] Code Phon e Number PN SOFT [address] [place] [address] documented in this encounter Visit Diagnoses Diagnosis Fatigue, unspecified type Essential hypertension (HRC) Unspecified essential hypertension Annual physical exam Routine general medical examination at a health care facility documented in this encounter Care Teams Hotel Front Desk Clerk Relationship Specialty Start Date End Date Chirag Metzger PA-C PCP - General Physician [employer] Railroad 07/06/16 [address] [place] [address] documented as of this encounter
--- OUTSIDE RECORDS SUMMARY | 2022-03-07 11:21 | XMS_ITS | Encounter Summary ---
:1970 Author Organization [employer] Address [address] [place] [address] Care Team Providers Name Role Phone Chirag Metzger PA-C Primary Care Provider Reason for Visit Reason Comments NECK PAIN BACK PAIN BACK PAIN, LOW Encounter Details Date Type Department Care Team Description 06/01/2017 Office Visit [facility] [place], Segmental and somatic dysfun ction of cervical region (Primary Dx); [address] [facility] Enoc Lazaro DC Segmental and somatic dysfun ction of thoracic region; [place] [phone] Segmental and somatic dysfun ction of sacral region; [phone] Cervicalgia; Pain in thoraci c spine; Low back pain ( HRC) Social History Tobacco Use Types Packs/Day Years Used Date Smoking Tobacco: Never Smokeless Tobacco: Never Alcohol Use Standard Drinks/Week Comments Yes 3 (1 standard drink = 0.6 oz pure alcoho l) Sex Assigned at Date Recorded Not on file documented as of this encounter Progress Notes Enoc Blanca DC - 06/01/2017 1:30 PM CST Marla Cuellar is 43 [...] 3 TIMES PER DAY. Enoc Blanca DC BUSHELER documented in this encounter Plan of Treatment [...] Lumbago documented in this encounter Care Teams Laminate Floor Installer Relationship Specialty Start Date End Date Chirag Metzger PA-C PCP - General Physician Prn Physical Therapist 07/06/16 [address] [place] [address] documented as of this encounter
--- OUTSIDE RECORDS SUMMARY | 2022-03-07 11:21 | XMS_ITS | Encounter Summary ---
:1970 Author Organization [employer] Address [address] [place] [address] Care Team Providers Name Role Phone Chirag Metzger PA-C Primary Care Provider Reason for Visit Reason Comments NECK PAIN BACK PAIN BACK PAIN, LOW Encounter Details Date Type Department Care Team Description 12/21/2016 Office Visit [facility], Segmental and somatic dysfun ction of cervical region (Primary Dx); [address] [facility] Enoc Lazaro DC Segmental and somatic dysfun ction of thoracic region; [place] [phone] Segmental and somatic dysfun ction of sacral region; [phone] Cervicalgia; Pain in thoraci c spine; Low back pain ( HRC) Social History Tobacco Use Types Packs/Day Years Used Date Smoking Tobacco: Never Smokeless Tobacco: Never Alcohol Use Standard Drinks/Week Comments Yes 3 (1 standard drink = 0.6 oz pure alcoho l) Sex Assigned at Date Recorded Not on file documented as of this encounter Progress Notes Enoc Blanca DC - 12/21/2016 9:45 AM CDT Marla Cuellar is 43 yr [...] Lumbago documented in this encounter Care Teams Painter Maintenance Relationship Specialty Start Date End Date Chirag Metzger PA-C PCP - General Physician Investment Underwriter 07/06/[address] [place] [address] documented as of this encounter
--- OUTSIDE RECORDS SUMMARY | 2022-03-07 11:21 | XMS_ITS | Encounter Summary ---
:1970 Author Organization [employer] Address [address] [place] [address] Care Team Providers Name Role Phone Chirag Metzger PA-C Primary Care Provider Encounter Details Date Type Department Care Team Description 02/13/2019 Notes/Orders [place] [id number] [place] [id number] (Wo rk) Social History Tobacco Use Types Packs/Day Years Used Date Smoking Tobacco: Never Smokeless Tobacco: Never Alcohol Use Standard Drinks/Week Comments Yes 3 (1 standard drink = 0.6 oz pure alcoho l) Sex Assigned at Date Recorded Not on file documented as of this encounter Progress Notes Bob Lidn MD - 02/13/2019 6:17 AM CDT I received a note from the [facility]. The patient had been seen at the [facility] for hand tear uveitis which responded well to topical therapy. It was felt systemic disease should be ruled out. A panel of labs was suggested including inflammatory markers, Lyme screen, HLA B27, angiotensin-converting enzyme, RPR/VDRL, fluorescent treponemal antibody. The patient had been seen by Simona Mendez PA-C at [facility] on February 10. She had woken up with some intense back pain. The notes reference that she has been going to pain clinic and is using oxycodone 3-4 times per day and gabapentin. Lab results showed sed rate of 27, CRP 1.0, normal angiotensin-converting enzyme, negative HLA B27, negative RPR, negative Lyme screen. I sent a letter to Simona Mendez PA-C, the patient's primary care provider letting her know that based on the above lab work I did not feel it would be helpful for me to see the patient back, would not change my diagnosis of fibromyalgia and chronic pain and rheumatology would likely need to get involved if the uveitis could not be controlled topically. documented in this encounter Miscellaneous Notes Letter - Bob Lind MD - 02/13/2019 6:25 AM CDT February 13, 2019 Simona Mendez PA-C [facility] RE: Keara Ward : 1970 Dear Simona: I have received your office visit note from February 10 regarding our mutual patient, Keara Ward, and her recent diagnosis of uveitis. In reviewing the lab tests that were done, I do not feel that her uveitis is likely the result of an underlying systemic rheumatic autoimmune disease. Certainly, uveitis can sometimes be associated with an underlying autoimmune condition such as ankylosing spondylitis, but many cases are not. Typically a auto brake technician would get involved when the uveitis cannot be controlled with topical therapies and systemic immune suppression with medications, such as methotrexate, are needed. Therefore, I do not necessarily feel it would be helpful for her to see me back given that information, and I would likely tell her the same. However, if you feel it is necessary, we are happy to see her back. Please contact me with any questions or concerns. Sincerely, Bob Lind MD [facility] Department of Rheumatology CONFIRM #: [id number] documented in this encounter Plan of Treatment Not on filedocumented as of this encounter Visit Diagnoses Not on filedocumented in this encounter Care Teams Folder Machine Adjuster Relationship Specialty Start Date End Date Chirag Metzger PA-C PCP - General Physician Check Pilot 07/06/16 [address] [place], [place] [address] documented as of this encounter
--- OUTSIDE RECORDS SUMMARY | 2022-03-07 11:21 | XMS_ITS | Encounter Summary ---
:1970 Author Organization [employer] Address [address] [place] [address] Care Team Providers Name Role Phone Chirag Metzger PA-C Primary Care Provider Reason for Visit Reason Comments NECK PAIN BACK PAIN BACK PAIN, LOW Encounter Details Date Type Department Care Team Description 05/10/2017 Office Visit [facility], Segmental and somatic dysfun ction of cervical region (Primary Dx); [address] [facility] Enoc Lazaro [place] Segmental and somatic dysfun ction of thoracic region; [place] [phone] Segmental and somatic dysfun ction of sacral region; [phone] Cervicalgia; Pain in thoraci c spine; Low back pain ( HRC) Social History Tobacco Use Types Packs/Day Years Used Date Smoking Tobacco: Never Smokeless Tobacco: Never Alcohol Use Standard Drinks/Week Comments Yes 3 (1 standard drink = 0.6 oz pure alcoho l) Sex Assigned at Date Recorded Not on file documented as of this encounter Progress Notes Enoc Blanca DC - 05/10/2017 1:15 PM CST Marla Cuellar is 43 yr [...] 3 TIMES PER DAY. 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
--- OUTSIDE RECORDS SUMMARY | 2022-03-07 11:21 | XMS_ITS | Encounter Summary ---
:1970 Author Organization [employer] Address [address] [place] [address] Care Team Providers Name Role Phone Chirag Metzger PA-C Primary Care Provider Reason for Visit Reason Comments NECK PAIN BACK PAIN BACK PAIN, LOW Encounter Details Date Type Department Care Team Description 12/29/2016 Office Visit [facility], Segmental and somatic dysfun ction of cervical region (Primary Dx); [address] [facility] Enoc Lazaro DC Segmental and somatic dysfun ction of thoracic region; [place] [phone] Segmental and somatic dysfun ction of sacral region; [phone] Cervicalgia; Pain in thoraci c spine; Low back pain ( HRC) Social History Tobacco Use Types Packs/Day Years Used Date Smoking Tobacco: Never Smokeless Tobacco: Never Alcohol Use Standard Drinks/Week Comments Yes 3 (1 standard drink = 0.6 oz pure alcoho l) Sex Assigned at Date Recorded Not on file documented as of this encounter Progress Notes Enoc Blanca DC - 12/29/2016 10:15 AM CDT Marla Cuellar is 43 yr female here for No chief complaint on file. Onset of neck pain with headaches, mid [...] in the sacroiliac, T9-T10, C2-C3 regions. Assessment: No diagnosis found. Plan: Diagnostic plan: No further testing/evaluation at [...] Lumbago documented in this encounter Care Teams Senior Science Consultant Relationship Specialty Start Date End Date Chirag Metzger PA-C PCP - General Physician Traffic Signal Technician 07/06/16 [address] [place] [address] documented as of this encounter
--- OUTSIDE RECORDS SUMMARY | 2022-03-07 11:21 | XMS_ITS | Encounter Summary ---
:1970 Author Organization [employer] Address [address] [place] [address] Care Team Providers Name Role Phone Chirag Metzger PA-C Primary Care Provider Reason for Referral (Routine) - Closed Specialty Diagnoses / Procedures Referred By Contact Refer red To Contact Diagnoses Screen for colon cancer Chirag Metzger PA-C Procedures Endoscopy, colon, diagnostic [address] [place] [address] Referral ID Status Reason Start Date Expiration Date Visits Requ ested Visits Authorized [id number] Closed 01/21/2019 04/21/2020 1 1 Encounter Details Date Type Department Care Team Description 01/21/2019 Notes/Orders [facility] Chirag Metzger, Screen for colon [address] PA-C cancer (Primary Dx) [place] [phone] [phone] [place] [address] Social History Tobacco Use Types Packs/Day Years Used Date Smoking Tobacco: Never Smokeless Tobacco: Never Alcohol Use Standard Drinks/Week Comments Yes 3 (1 standard drink = 0.6 oz pure alcoho l) Sex Assigned at Date Recorded Not on file documented as of this encounter Plan of Treatment Scheduled Orders Name Type Priority Associated Diagnoses Order S chedule Endoscopy, colon, GI Routine Screen for colon cancer 1 Occurrences starting diagnostic 01/21/2019 unti l 01/21/2021 documented as of this encounter Visit Diagnoses Diagnosis Screen for colon cancer - Primary Special screening for malignant neoplasm s, colon documented in this encounter Care Teams Station Tender Relationship Specialty Start Date End Date Chirag Metzger PA-C PCP - General Physician Manager Clinical Informatics 07/06/16 [address] [place] [address] documented as of this encounter
--- OUTSIDE RECORDS SUMMARY | 2022-03-07 11:21 | XMS_ITS | Encounter Summary ---
:1970 Author Organization [employer] Address [address] [place] [address] Care Team Providers Name Role Phone Chirag Metzger PA-C Primary Care Provider Reason for Visit Procedure/Equipment (Routine) - Incomplete Specialty Diagnoses / Procedures Referred By Contact Refer red To Contact Diagnoses Visit for screening Naila Weaver MD Procedures MM Mammogram Screening [facility] [address], [place] [address] Referral ID Status Reason Start Date Expiration Date Visits V isits Requested Authorized [id number] Incomplete 02/06/2017 05/08/2018 1 1 Encounter Details Date Type Department Care Team Description 02/21/2017 Imaging [facility] Naila Weaver MD Visit for screening [address], [place] [address] [place] [address] [phone] (Wo rk) Social History Tobacco Use Types [...] Name Priority Date/Time Associated Diagnosis Comme nts MM MAMMOGRAM Routine 02/21/2017 9:13 AM Visit for screening Re sults for this SCREENING BILAT W CDT procedure are in CAD the results section. documented in this encounter Results MM Mammogram Screening Bilat W CAD (02/21/2017 9:13 AM CDT) Anatomical Region Laterality Modality Breast Bilateral Mammography Specimen (Source) Anatomical Location Collection Method / Collectio n Time Received Time / Laterality Volume Impressions 02/21/2017 9:58 AM CDT : ACR BI-RADS Category 1: Negative RECOMMENDATION: Follow Up Imaging in 12 months - Bilateral The results and recommendations of this examination will be communicated to the patient. Narrative 02/21/2017 9:58 AM CDT MM MAMMOGRAM SCREENING BILAT W CAD performed on 02/21/17 Compared to: 02/02/2016 MM Mammogram Scr eening Bilat W CAD, 01/13/2015 MM Mammogram Screening Bilat W CAD, and MM Mammogram Screening Bilat W CAD FINDINGS: Bilateral screening mammogram was performed with the assistance of Computer-Aided Detection. The breasts have scattered areas of fibroglandular density. There is no radiographic evidence of mal ignancy. ?? Naila Weaver MD RAD [facility] documented in this encounter Visit Diagnoses Diagnosis Visit for screening Screening for unspecified condition documented in this encounter Care Teams Patternmaker Grader Relationship Specialty Start Date End Date Chirag Metzger PA-C PCP - General Physician Mobility Architect Manager 07/06/16 [address] [place] [address] documented as of this encounter
--- OUTSIDE RECORDS SUMMARY | 2022-03-07 11:21 | XMS_ITS | Encounter Summary ---
:1970 Author Organization [facility] Address [address] [place] [address] Care Team Providers Name Role Phone Chirag Metzger PA-C Primary Care Provider Reason for Visit Procedure/Equipment (Routine) - Incomplete Specialty Diagnoses / Procedures Referred By Contact Refer red To Contact Diagnoses Visit for screening Chirag Metzger PA-C Procedures MM Mammogram Screening Bilat W CAD [address] [place] [address] Referral ID Status Reason Start Date Expiration Date Visits V isits Requested Authorized [id number] Incomplete 02/27/2018 05/29/2019 1 1 Encounter Details Date Type Department Care Team Description 03/20/2018 Imaging [place] [facility] Chirag Metzger PA-C Visit for screening [address] [place] [address] [place] [address] [phone] (Wo rk) Social History Tobacco Use Types [...] Associated Diagnosis Comme nts MM MAMMOGRAM Routine 03/20/2018 9:02 AM Visit for screening Re sults for this SCREENING BILAT W CDT procedure are in CAD the results section. documented in this encounter Results MM Mammogram Screening Bilat W CAD (03/20/2018 9:02 AM CDT) Anatomical Region Laterality Modality Breast Bilateral Mammography Specimen (Source) Anatomical Location Collection Method / Collectio n Time Received Time / Laterality Volume Impressions 03/20/2018 10:52 AM CDT : ACR BI-RADS Category 1: Negative RECOMMENDATION: Follow Up Imaging in 12 months - Bilateral The results and recommendations of this examination will be communicated to the patient. Narrative 03/20/2018 10:52 AM CDT MM MAMMOGRAM SCREENING BILAT W CAD performed on 03/20/18 Compared to: 02/21/2017 MM Mammogram Scr eening Bilat W CAD, 02/02/2016 MM Mammogram Screening Bilat W CAD, and MM Mammogram Screening Bilat W CAD FINDINGS: Bilateral screening mammogram was performed with the assistance of Computer-Aided Detection. The breasts have scattered areas of fibroglandular density. There is no radiographic evidence of mal ignancy. ?? Chirag Metzger PA-C RAD [facility] documented in this encounter Visit Diagnoses Diagnosis Visit for screening Screening for unspecified condition documented in this encounter Care Teams Business Support Specialist Relationship Specialty Start Date End Date Chirag Metzger PA-C PCP - General Physician Open Claims Representative 07/06/16 [address] [place] [address] documented as of this encounter
--- OUTSIDE RECORDS SUMMARY | 2022-03-07 11:22 | XMS_ITS | Encounter Summary ---
:1970 Author Organization [facility] Address [address] [place] [address] Care Team Providers Name Role Phone Padmini Park PA-C Primary Care Provider Reason for Visit Reason Comments NECK PAIN BACK PAIN BACK PAIN, LOW Encounter Details Date Type Department Care Team Description 05/18/2016 Office Visit [facility], Segmental and somatic dysfun ction of cervical region (Primary Dx); [address] Enoc Lazaro [place] Segmental and somatic dysfun ction of thoracic region; [place] [phone] Segmental and somatic dysfun ction of sacral region; [phone] Cervicalgia; Spasm of back m uscles; Headache, unspe cified headache type Social History Tobacco Use Types Packs/Day Years Used Date Smoking Tobacco: Never Smokeless Tobacco: Never Alcohol Use Standard Drinks/Week Comments Yes 3 (1 standard drink = 0.6 oz pure alcoho l) Sex Assigned at Date Recorded Not on file documented as of this encounter Progress Notes Enoc Blanca DC - 05/18/2016 7:47 AM CST Marla Cuellar is 43 yr female here for Chief Complaint Patient presents with ??? NECK PAIN ??? BACK PAIN ??? BACK PAIN, LOW Onset of neck pain with headaches, mid back and low back pain that started yesterday.. Flare-up of pain 2/10 Review of systems: Denies numbness, tingling, or weakness in the extremities. Denies change in bowel/bladder function. Past medical, surgical, social, and family history has been reviewed. Objective: There were no vitals taken for this visit. Estimated body mass index is 31.27 kg/(m^2) as calculated from the following: Height as of 07/21/15: 5' 2 (1.575 m). Weight as of 11/25/15: 171 lb (77.565 kg). Inspection: No bruising, swelling, erythema is [...] dysfunction of sacral region 4. Cervicalgia 5. Spasm of back muscles 6. Headache, unspecified headache type Plan: Diagnostic plan: No further testing/evaluation at this time. Therapeutic plan: Patient consented to care. Spinal manipulative therapy (SMT) was applied to the sacroiliac, thoracic and cervical regions. Trigger point therapy was applied to the soft tissue in the lumbar, sacroiliac and hip regions for 8-9 minutes. Patient tolerated treatment well. Goals: Resolve current complaints. Treatment plan: PRN Educational plan: PIRIFORMIS EXERCISES: 3 REPETITIONS @ 30 SECONDS/2-3 TIMES PER DAY TO IMPROVE FLEXIBILITY/FUNCTIO, DECREASE PAIN AND REHABILITATE THE LUMBOSACRAL AND HIP REGIONS. THORACIC EXTENSION EXERCISES: 5 REPETITIONS/2-3MTIMES PER DAY TO IMPROVE FLEXIBILITY/FUNCTION, DECREASE PAIN AND REHABILITATE THE THORACIC REGIONS. HOME ICE THERAPY. 20 MINUTES ON, 20 MINUTES OFF 2 - 3 TIMES PER DAY. Enoc Blanca DC LANGUAGE INTERPRETER documented in this encounter Plan of Treatment [...] sacral region, n ot elsewhere classified Cervicalgia Spasm of back muscles Other symptoms referable to back Headache, unspecified headache type documented in this encounter Care Teams Electoral Officer Relationship Specialty Start Date End Date Padmini Park PA-C PCP - General 01/20/16 07/05/16 documented as of this encounter
--- OUTSIDE RECORDS SUMMARY | 2022-03-07 11:22 | XMS_ITS | Encounter Summary ---
:1970 Author Organization [facility] Address [address] [place] [address] Care Team Providers Name Role Phone Padmini Park PA-C Primary Care Provider Reason for Visit Reason Comments NECK PAIN BACK PAIN Encounter Details Date Type Department Care Team Description 04/17/2016 Office Visit [facility] Segmental and somatic dysfun ction of cervical region (Primary Dx); [address] [facility] [address] En[place] Lazaro [place] Segmental and somatic dysfun ction of thoracic region; [place] [phone] Segmental and somatic dysfun ction of sacral region; [phone] Cervicalgia; Spasm of back m uscles Social History Tobacco Use Types Packs/Day Years Used Date Smoking Tobacco: Never Smokeless Tobacco: Never Alcohol Use Standard Drinks/Week Comments Yes 3 (1 standard drink = 0.6 oz pure alcoho l) Sex Assigned at Date Recorded Not on file documented as of this encounter Progress Notes Enoc Blanca DC - 04/17/2016 7:51 AM CST Subjective Keara Cuellar is 43 yr female here for Chief Complaint Patient presents with ??? NECK PAIN ??? BACK PAIN Onset of neck pain with headaches, mid back and low back pain that started yesterday.. Flare-up of pain 06/30 Review of systems: Denies numbness, tingling, or [...] 4. Cervicalgia 5. Spasm of back muscles Plan: Diagnostic plan: [...] 3 TIMES PER DAY. Enoc Blanca DC RTISING DISPLAY ROTATOR documented in this encounter Plan of Treatment [...] back documented in this encounter Care Teams Boilermaker Relationship Specialty Start Date End Date Padmini Park PA-C PCP - General 01/20/16 07/05/16 documented as of this encounter
--- OUTSIDE RECORDS SUMMARY | 2022-03-07 11:22 | XMS_ITS | Encounter Summary ---
:1970 Author Organization [facility] Address [address] [place] [address] Care Team Providers Name Role Phone Chirag Metzger PA-C Primary Care Provider Reason for Visit Reason Comments NECK PAIN BACK PAIN BACK PAIN, LOW Encounter Details Date Type Department Care Team Description 08/17/2016 Office Visit [facility], Segmental and somatic dysfun ction of cervical region (Primary Dx); [address] [facility] [place] Lazaro [place] Segmental and somatic dysfun ction of thoracic region; [place] [phone] Segmental and somatic dysfun ction of sacral region; [phone] Cervicalgia; Pain in thoraci c spine; Low back pain ( [facility]C) Social History Tobacco Use Types Packs/Day Years Used Date Smoking Tobacco: Never Smokeless Tobacco: Never Alcohol Use Standard Drinks/Week Comments Yes 3 (1 standard drink = 0.6 oz pure alcoho l) Sex Assigned at Date Recorded Not on file documented as of this encounter Progress Notes Enoc Blanca DC - 08/17/2016 1:39 PM CDT Marla Cuellar is 43 yr [...] m). Weight as of 07/06/16: 176 lb (79.833 kg). Inspection: No bruising, swelling, erythema is [...] Lumbago documented in this encounter Care Teams Monogram And Letter Paster Relationship Specialty Start Date End Date Chirag Metzger PA-C PCP - General Physician Level Glass Vial Filler 07/06/16 [address] [place], [place] [address] documented as of this encounter
--- OUTSIDE RECORDS SUMMARY | 2022-03-07 11:22 | XMS_ITS | Encounter Summary ---
:1970 Author Organization [facility] Address [address] [place] [address] Care Team Providers Name Role Phone Chirag Metzger PA-C Primary Care Provider Reason for Visit Reason Comments NECK PAIN BACK PAIN BACK PAIN, LOW Encounter Details Date Type Department Care Team Description 09/28/2016 Office Visit [facility], Segmental and somatic dysfun ction of cervical region (Primary Dx); [address] [facility] [place] Lazaro [place] Segmental and somatic dysfun ction of thoracic region; [place] [phone] Segmental and somatic dysfun ction of sacral region; [phone] Cervicalgia; Pain in thoraci c spine; Low back pain ( HRC) Social History Tobacco Use Types Packs/Day Years Used Date Smoking Tobacco: Never Smokeless Tobacco: Never Alcohol Use Standard Drinks/Week Comments Yes 3 (1 standard drink = 0.6 oz pure alcoho l) Sex Assigned at Date Recorded Not on file documented as of this encounter Progress Notes Enoc Blanca DC - 09/28/2016 7:31 AM CDT Marla Cuellar is 43 yr female here for Chief Complaint Patient presents with ??? NECK PAIN ??? BACK PAIN ??? BACK PAIN, LOW Onset of neck pain with headaches, mid back and low back pain that started last weeks. Improvement Review of systems: Denies numbness, tingling, or [...] Lumbago documented in this encounter Care Teams International Recruiter Relationship Specialty Start Date End Date Chirag Metzger PA-C PCP - General Physician Braille Duplicating Machine Operator 07/06/16 [address] [place] [address] documented as of this encounter
--- OUTSIDE RECORDS SUMMARY | 2022-03-07 11:22 | XMS_ITS | Encounter Summary ---
:1970 Author Organization [facility] Address [address] [place] [address] Care Team Providers Name Role Phone Chirag Metzger PA-C Primary Care Provider Reason for Visit Reason Comments NECK PAIN BACK PAIN BACK PAIN, LOW Encounter Details Date Type Department Care Team Description 07/14/2016 Office Visit [facility], Segmental and somatic dysfun ction of cervical region (Primary Dx); [address] [facility] [place] Lazaro [place] Segmental and somatic dysfun ction of thoracic region; [place] [phone] Segmental and somatic dysfun ction of sacral region; [phone] Cervicalgia; Pain in thoraci c spine; Low back pain ( HRC) Social History Tobacco Use Types Packs/Day Years Used Date Smoking Tobacco: Never Smokeless Tobacco: Never Alcohol Use Standard Drinks/Week Comments Yes 3 (1 standard drink = 0.6 oz pure alcoho l) Sex Assigned at Date Recorded Not on file documented as of this encounter Progress Notes Enoc Blanca DC - 07/14/2016 4:39 PM CST Marla Cuellar is 43 yr [...] 3 TIMES PER DAY. Enoc Blanca DC NET DEVELOPER documented in this encounter Plan of Treatment [...] Lumbago documented in this encounter Care Teams Teachers Assistant Relationship Specialty Start Date End Date Chirag Metzger PA-C PCP - General Physician Wood Treating Inspector 07/06/16 [address] [place] [address] documented as of this encounter
--- OUTSIDE RECORDS SUMMARY | 2022-03-07 11:22 | XMS_ITS | Encounter Summary ---
:1970 Author Organization [facility] Address [address] [place] [address] Care Team Providers Name Role Phone Chirag Metzger PA-C Primary Care Provider Reason for Visit Reason Comments NECK PAIN BACK PAIN BACK PAIN, LOW Encounter Details Date Type Department Care Team Description 08/08/2016 Office Visit [facility], Segmental and somatic dysfun ction of cervical region (Primary Dx); [address] [facility] [place] Lazaro [place] Segmental and somatic dysfun ction of thoracic region; [place] [phone] Segmental and somatic dysfun ction of sacral region; [phone] Cervicalgia; Pain in thoraci c spine; Low back pain ( HRC) Social History Tobacco Use Types Packs/Day Years Used Date Smoking Tobacco: Never Smokeless Tobacco: Never Alcohol Use Standard Drinks/Week Comments Yes 3 (1 standard drink = 0.6 oz pure alcoho l) Sex Assigned at Date Recorded Not on file documented as of this encounter Progress Notes Enoc Blanca DC - 08/08/2016 8:26 AM CDT Marla Cuellar is 43 yr [...] Lumbago documented in this encounter Care Teams Engine Manager Relationship Specialty Start Date End Date Chirag Metzger PA-C PCP - General Physician Pasting Machine Offbearer 07/06/16 [address] [place], [place] [address] documented as of this encounter
--- OUTSIDE RECORDS SUMMARY | 2022-03-07 11:22 | XMS_ITS | Encounter Summary ---
:1970 Author Organization [facility] Address [address] [place] [address] Care Team Providers Name Role Phone Chirag Metzger PA-C Primary Care Provider Reason for Referral (Routine) - Closed Specialty Diagnoses / Procedures Referred By Contact Refer red To Contact Diagnoses Screen for colon cancer Chirag Metzger PA-C Procedures Colonoscopy [address] [place] [address] Referral ID Status Reason Start Date Expiration Date Visits Requ ested Visits Authorized [id number] Closed 07/06/2016 10/05/2017 1 1 IS WHEEL ATTENDANT Reason for Visit Reason Comments Annual Exam Encounter Details Date Type Department Care Team Description 07/06/2016 Office Visit Chirag Chopra, Annual physical exam (Primar y Dx); [address] PA-C Migraine without status migrainosus, not intractable, unspecified migraine type; [place] [address] Screen for colon cancer [phone] [place] [id number] Social History Tobacco Use Types Packs/Day Years Used Date Smoking Tobacco: Never Smokeless Tobacco: Never Alcohol Use Standard Drinks/Week Comments Yes 3 (1 standard drink = 0.6 oz pure alcoho l) Sex Assigned at Date Recorded Not on file documented as of this encounter Last Filed Vital Signs Vital Sign Reading Time Taken Comments Blood Pressure 126/82 07/06/2016 8:17 AM FERRIS WHEEL ATTENDANT Pulse - - Temperature - - Respiratory Rate - - Oxygen Saturation - - Inhaled Oxygen Concentration - - Weight 79.8 kg (176 lb) 07/06/2016 8:17 AM FERRIS WHEEL ATTENDANT Height 156.2 cm (5' 1.5) 07/06/2016 8:17 AM FERRIS WHEEL ATTENDANT Body Mass Index 32.72 07/06/2016 8:17 AM FERRIS WHEEL ATTENDANT documented in this encounter Progress Notes Chirag Metzger PA-C - 07/06/2016 8:28 AM CST Preventive Exam HISTORY OF PRESENT ILLNESS: 46 y/o patient presents for a routine preventive physical exam. Patient Active Problem List Diagnosis ??? Syncope, psychogenic (HRC) ??? Migraine, chronic, without aura, intractable, with status migrainosus ??? Obese (HRC) ??? Segmental and somatic dysfunction of cervical region ??? Segmental and somatic dysfunction of thoracic region ??? Segmental and somatic dysfunction of sacral region ??? Cervicalgia ??? Spasm of back muscles ??? Endometriosis ??? Primary open angle glaucoma of both eyes, mild stage SUBJECTIVE: The patient voices the following concerns: None Medication refills requested: Requested Prescriptions Pending Prescriptions Disp Refills ??? ergocalciferol (DRISDOL) 72172 UNITS capsule 12 Cap 3 Sig: Take 1 Cap by mouth once every week. Indications: JANE UMAÑA Jan 13, 2015 11:27 AM Received from: [facility] ??? ibuprofen (MOTRIN) 800 MG tablet 270 Tab 1 Sig: Take 1 Tab by mouth three times a day. ??? rizatriptan (MAXALT) 10 MG tablet 10 Tab 12 Sig: Take 1 Tab by mouth as needed. . No problem-specific assessment & plan notes found for this encounter. Past Medical/Surgical History/Family History: Reviewed and updated today under History tab in Electronic Medical Record. has a current medication list which includes the following prescription(s): biotin, ergocalciferol, hydrochlorothiazide, ibuprofen, latanoprost, methocarbamol, and rizatriptan. has No Known Allergies. Manufacturing Supervisor History: : No obstetric history on file. LMP: No LMP recorded. Patient is not currently having periods (Reason: Hysterectomy, still has cervix). Sexual History: reports that she does not engage in sexual activity. Last Pap Smear: 01/13/2015, normal She has not had abnormal pap smear. STD History: She has not been diagnosed with STDs. Social History: Social History Social History ??? Marital Status: Spouse Name: N/A ??? Number of Children: 2 ??? Years of Education: N/A Occupational History ??? currently unemployed part-time Social History Main Topics ??? Smoking status: Never Smoker ??? Smokeless tobacco: Never Used ??? Alcohol Use: 1.8 oz/week 3 Glasses of wine per week ??? Drug Use: No ??? Sexual Activity: No Other Topics Concern ??? Not on file Social History Narrative Preventive Health Assessment: She does exercise regularly. She does perform monthly self breast exam. Calcium intake is adequate. Pap smear: UTD Mammogram: UTD Colonoscopy: Due Cholesterol fractionation: Due Bone density scan: N/A Immunization History Administered Date(s) Administered ??? Flu Vac (3+ yrs) 04/10/2000 ??? Influenza (Fluarix or Fluzone 0.5, 3+ yrs) 03/20/2014, 02/02/2015 ??? Influenza Vaccine - Historical 03/04/2013 ??? MMR 03/04/2013, 05/30/2013 ??? TDAP (ADACEL) 08/17/2011 ??? Td 05/20/1995 ??? Tdap 08/17/2011 OBJECTIVE: BP 126/82 mmHg Ht 5' 1.5 (1.562 m) Wt 176 lb (79.833 kg) BMI 32.72 kg/m2 General appearance: alert, cooperative, no distress, [...] bowel sounds normal; no masses, no organomegaly, Extremities: extremities normal, atraumatic, no cyanosis or edema, Pulses: 2+ and symmetric, Skin: Skin color, texture, turgor normal. No rashes or lesions and Lymph nodes: Cervical, supraclavicular, and axillary nodes normal. ASSESSMENT/PLAN: Keara was seen today for annual exam. Diagnoses and all orders for this visit: Annual physical exam - Lipid Panel - LDLD If Trig High; Future Migraine without status migrainosus, not intractable, unspecified migraine type - rizatriptan (MAXALT) 10 MG tablet; Take 1 Tab by mouth as needed. Screen for colon cancer - Colonoscopy; Future Other orders - ergocalciferol (DRISDOL) 45589 UNITS capsule; Take 1 Cap by mouth once every week. Indications: JANE UMAÑA Jan 13, 2015 11:27 AM Received from: [facility] - ibuprofen (MOTRIN) 800 MG tablet; Take 1 Tab by mouth three times a day. Patient Active Problem List Diagnosis ??? Syncope, psychogenic (HRC) ??? Migraine, chronic, without aura, intractable, with status migrainosus ??? Obese (HRC) ??? Segmental and somatic dysfunction of cervical region ??? Segmental and somatic dysfunction of thoracic region ??? Segmental and somatic dysfunction of sacral region ??? Cervicalgia ??? Spasm of back muscles ??? Endometriosis ??? Primary open angle glaucoma of both eyes, mild stage Discharged ambulatory and in stable condition. IS WHEEL ATTENDANT documented in this encounter Plan of Treatment Scheduled Orders Name Type Priority Associated Diagnoses Order S chedule Colonoscopy GI Routine Screen for colon cancer 1 Oc currences starting 07/06/2016 until 9 Colonoscopy GI Routine Screen for colon cancer 1 Oc currences starting 07/06/2016 until 9 documented as of this encounter Results (ABNORMAL) Lipid Panel - LDLD If Trig High (07/06/2016 8:50 AM FERRIS WHEEL ATTENDANT) [facility] Method Time Signature Cholesterol 209 (H) 0 - 199 PN SOFT mg/dL Triglycerides 67 4 - 149 PN SOFT mg/dL HDL Cholesterol 71 >39 mg/dL PN SOFT Cholesterol/HDL 2.9 PN SOFT Ratio Screen LDL Calculated 125 19 - 130 PN SOFT mg/dL Length Of Fast 12.0 PN SOFT Specimen Anatomical Collection Method Collection Time Receive d Time (Source) Location / / Volume Laterality 07/06/2016 8:50 AM 7 FERRIS WHEEL ATTENDANT 11:13 AM FERRIS WHEEL ATTENDANT Narrative PN SOFT - 07/06/2016 12:31 PM FERRIS WHEEL ATTENDANT Performed at [facility], [address] [place] [address] CLIA number [id number] Chirag Metzger PA-C LAB_1 Performing Organization Address City/State/ZIP Code Phon e Number [facility] [address] [place] [address] [phone] documented in this encounter Visit Diagnoses Diagnosis Annual physical exam - Primary Routine general medical examination at a health care facility Migraine without status migrainosus, not intractable, unspecified migraine type Screen for colon cancer Special screening for malignant neoplasm s, colon Annual physical exam Routine general medical examination at a health care facility documented in this encounter Care Teams Electrician Manager Relationship Specialty Start Date End Date Chirag Metzger PA-C PCP - General Physician Coater Operator Insulation Board 07/06/16 [address] [place] [id number] documented as of this encounter
--- OUTSIDE RECORDS SUMMARY | 2022-03-07 11:22 | XMS_ITS | Encounter Summary ---
:1970 Author Organization [facility] Address [address] [place] [address] Care Team Providers Name Role Phone Padmini Park PA-C Primary Care Provider Reason for Visit Reason Comments Refill Encounter Details Date Type Department Care Team Description 12/15/2015 Refill [facility] Chirag Viera PA-C Refill [address] [place] [address] [place] [address] [phone] (Wo rk) Social History Tobacco Use Types Packs/Day Years Used Date Smoking Tobacco: Never Smokeless Tobacco: Never Alcohol Use Standard Drinks/Week Comments Yes 0 (1 standard drink = 0.6 oz pure alcoho l) occasional Sex Assigned at Date Recorded Not on file documented as of this encounter Nursing Notes User, [facility] - 12/18/2015 4:04 PM CDT ibuprofen (MOTRIN) 800 mg tablet [Pharmacy Med Name: Ibuprofen Oral Tablet 800 MG] - MEDICATION STARTED: 12/04/2012 - LAST REFILLED ON: 06/08/2015, QTY: 30, Refills: 2, Sig: take 1 tablet by mouth 3 times daily. (unchanged) - WARNING: This medication may not have been authorized by the requested provider. - NOTIFICATION: RBC is abnormal (4.19 m/cmm lies outside 4.2 m/cmm - 5.9 m/cmm) - REFILL: 9 months (if notifications and warnings resolved) - RATIONALE: This refill should last until the patient is due for an office visit. - LAST QUALIFYING VISIT WITH CHIRAG MARTINEZ: 07/21/2015 - NEXT SCHEDULED VISIT: None - SBP: 118mm Hg on 07/21/2015 - DBP: 74mm Hg on 07/21/2015 - Cr: 0.7mg/dL on 09/11/2013 - PLT: 273k/cmm on 09/11/2013 - HGB: 12.7g/dL on 09/11/2013 - RBC: 4.19m/cmm on 09/11/2013 - RDW: 11.7% on 09/11/2013 - HCT: 37.6% on 09/11/2013 - WBC: 9.8k/cmm on 09/11/2013 Powered by [employer], Reference: [id number], 12/15/2015 7:22:55 PM CDT, Pool: DAVID REFILL ([id number]) ANIC WELDER TRUCK DRIVER Rolanda Gagnon, RN - 12/18/2015 4:04 PM CDT Renewed medication per medication refill protocol. Requested Prescriptions Signed Prescriptions Disp Refills ??? ibuprofen (MOTRIN) 800 mg tablet 30 tablet 2 Sig: Take 1 tablet by mouth 3 times daily. Authorizing Provider: CHIRAG MARTINEZ Ordering User: ROLANDA GAGNON documented in this encounter Plan of Treatment Not on filedocumented as of this encounter Visit Diagnoses Not on filedocumented in this encounter Care Teams Diving Judge Relationship Specialty Start Date End Date Padmini Park PA-C PCP - General Family Practice 04/05/12 01/19/16 documented as of this encounter
--- OUTSIDE RECORDS SUMMARY | 2022-03-07 11:22 | XMS_ITS | Encounter Summary ---
:1970 Author Organization [facility] Address [address] [place] [address] Care Team Providers Name Role Phone Padmini Park PA-C Primary Care Provider Encounter Details Date Type Department Care Team Description 10/28/2015 Imaging [facility] pe lvic pain Services-Ultrasound [address] [facility] , [address] [place] [address] Social History Tobacco Use Types Packs/Day Years Used Date Smoking Tobacco: Never Smokeless Tobacco: Never Alcohol Use Standard Drinks/Week Comments Yes 0 (1 standard drink = 0.6 oz pure alcoho l) occasional Sex Assigned at Date Recorded Not on file documented as of this encounter Progress Notes Reed Hernandez MD - 10/29/2015 8:20 AM CDT Quick Note: Patient notified of normal pelvic ultrasound following hysterectomy result by phone message and viaMyChart. Dr. Hernandez EM ADMINISTRATOR documented in this encounter Miscellaneous Notes Miscellaneous - 06/28/2016 5:27 PM CSTNotes Recorded by Reed Hernandez MD on 10/29/2015 at 8:20 AMPatient notified of normal pelvic ultrasound following hysterectomy result by phone message and via MyChart.Dr. Hernandez EM ADMINISTRATOR documented in this encounter Plan of Treatment Not on filedocumented as of this encounter Procedures Procedure Name Priority Date/Time Associated Diagnosis Comme nts US PELVIC COMPLETE Routine 10/28/2015 2:23 PM Female pelvic pa in Results for this W EV CDT procedure are i n the results section. documented in this encounter Results US Pelvic Complete W EV (10/28/2015 2:23 PM CDT) Anatomical Region Laterality Modality Pelvis Other Specimen (Source) Anatomical Location Collection Method / Collectio n Time Received Time / Laterality Volume Impressions 10/28/2015 2:38 PM CDT IMPRESSION: Absent uterus, unremarkable ovaries. Narrative 10/28/2015 2:38 PM CDT COMPARISON: ??None. TECHNIQUE: ??Transabdominal and transvag inal imaging was performed. FINDINGS: ?? Uterus: Surgically absent. Right Ovary: Measures 2.6 x 1.9 x 1.2 cm and is unremarkable. Right Ovary Blood Flow: Present. Left Ovary: Measures 2.3 x 1.1 x 1.1 cm and is unremarkable Left Ovary Blood Flow: Present. Free Fluid: no significant free fluid. Procedure Note Nathan Quintero MD - 01/17/2016Format ting of this note might be different from the original. COMPARISON: None. TECHNIQUE: Transabdominal and transvagin al imaging was performed. FINDINGS: Uterus: Surgically absent. Right Ovary: Measures 2.6 x 1.9 x 1.2 cm and is unremarkable. Right Ovary Blood Flow: Present. Left Ovary: Measures 2.3 x 1.1 x 1.1 cm and is unremarkable Left Ovary Blood Flow: Present. Free Fluid: no significant free fluid. IMPRESSION IMPRESSION: Absent uterus, unremarkable ovaries. Transcriptions Nathan Quintero MD - 06/28/2016 5:27 PM CSTNotes Recorded by Reed Hernandez MD on 10/29/2015 at 8:20 AMPatient notified of normal pelvic ultrasound following hysterectomy result by phone message and via ensembli.Dr. Hernandez Reed Hernandez MD [facility] documented in this encounter Visit Diagnoses Diagnosis Female pelvic pain Unspecified symptom associated with fema le genital organs documented in this encounter Care Teams Stonemason Apprentice Relationship Specialty Start Date End Date Padmini Park PA-C PCP - General Family Practice 04/05/12 01/19/16 documented as of this encounter
--- OUTSIDE RECORDS SUMMARY | 2022-03-07 11:22 | XMS_ITS | Encounter Summary ---
:1970 Author Organization [employer] Address [address] [place] [address] Care Team Providers Name Role Phone Padmini Park PA-C Primary Care Provider Reason for Visit Reason Comments Refill ibuprofen (MOTRIN) 800 MG ta blet [Pharmacy Med Name: Ibuprofen Oral Tablet 800 MG] Encounter Details Date Type Department Care Team Description 02/19/2016 Refill [facility] Chirag Metzger PA-C Refill (ibuprofen [address] (MOTRIN) 800 [place] [address] [place] [address] [Pharmacy Med Name: [phone] (Wo rk) Ibuprofen Oral Tablet 800 MG]) Social History Tobacco Use Types Packs/Day Years Used Date Smoking Tobacco: Never Smokeless Tobacco: Never Alcohol Use Standard Drinks/Week Comments Yes 3 (1 standard drink = 0.6 oz pure alcoho l) Sex Assigned at Date Recorded Not on file documented as of this encounter Nursing Notes Vaishali Benz, RN - 02/22/2016 8:37 AM CDT Renewed medication per medication refill protocol. Requested Prescriptions Signed Prescriptions Disp Refills ??? ibuprofen (MOTRIN) 800 MG tablet 270 Tab 1 Sig: Take 1 Tab by mouth three times a day. Authorizing Provider: CHIRAG METZGER Ordering User: VAISHALI BENZ Interface, Out Surescripts Prov Query - 02/19/2016 7:01 AM CDT ibuprofen (MOTRIN) 800 MG tablet [Pharmacy Med Name: Ibuprofen Oral Tablet 800 MG] - MEDICATION STARTED: 12/04/2012 - LAST REFILLED ON: 12/18/2015, QTY: 30, Refills: 2, Sig: take 1 tablet by mouth 3 times daily. (changed but equivalent) - WARNING: This medication may not have been authorized by the requested provider. - NOTIFICATION: RBC is abnormal (4.19 m/cmm lies outside 4.2 m/cmm - 5.9 m/cmm) - REFILL: 6 months (if notifications and warnings resolved) - RATIONALE: This refill should last until the patient is due for an office visit. - LAST QUALIFYING VISIT WITH CHIRAG METZGER: 07/21/2015 - NEXT SCHEDULED VISIT: None - SBP: 118mm Hg on 07/21/2015 - DBP: 74mm Hg on 07/21/2015 - Cr: 0.7mg/dL on 09/11/2013 - RBC: 4.19m/cmm on 09/11/2013 - PLT: 273k/cmm on 09/11/2013 - Hematocrit: 37.6% on 09/11/2013 - RDW: 11.7% on 09/11/2013 - RDW (PN): 11.7% on 09/11/2013 - HGB: 12.7g/dL on 09/11/2013 - White Blood Cell Count: 9.8k/cmm on 09/11/2013 Powered by [employer], Reference: [id number], 02/19/2016 7:01:28 AM CDT, Pool: EAGEN REFILL ([id number]) documented in this encounter Plan of Treatment Not on filedocumented as of this encounter Visit Diagnoses Not on filedocumented in this encounter Care Teams Taper/Finisher Relationship Specialty Start Date End Date Padmini Park PA-C PCP - General 01/20/16 07/05/16 documented as of this encounter
--- OUTSIDE RECORDS SUMMARY | 2022-03-07 11:22 | XMS_ITS | Encounter Summary ---
:1970 Author Organization [employer] Address [address] [place] [address] Care Team Providers Name Role Phone Padmini Park PA-C Primary Care Provider Reason for Visit Reason Comments CONSULT Encounter Details Date Type Department Care Team Description 10/28/2015 Initial Consult [facility] Reed Hernandez End ometriosis (Primary Dx); Services-FACE BURLER Female pelvic pain [address], [address] [id number] Social History Tobacco Use Types Packs/Day Years Used Date Smoking Tobacco: Never Smokeless Tobacco: Never Alcohol Use Standard Drinks/Week Comments Yes 0 (1 standard drink = 0.6 oz pure alcoho l) occasional Sex Assigned at Date Recorded Not on file documented as of this encounter Last Filed Vital Signs Vital Sign Reading Time Taken Comments Blood Pressure 139/85 10/28/2015 9:27 AM CDT Pulse 88 10/28/2015 9:27 AM CDT Temperature - - Respiratory Rate - - Oxygen Saturation - - Inhaled Oxygen Concentration - - Weight 74.8 kg (165 lb) 10/28/2015 9:27 AM CDT Height - - Body Mass Index 30.18 07/21/2015 10:45 AM CUTCH CLEANER documented in this encounter Progress Notes Reed Hernandez MD - 10/28/2015 10:30 AM CDT SUBJECTIVE: The patient is a 45-year-old black female, 2, para 2002, with no LMP secondary to previous subtotal hysterectomy, who is seen for pelvic pain and history of endometriosis. Patient underwent diagnostic laparoscopy with aspiration of left ovarian cyst on 02/02/15.?? Inspection showed evidence of pinpoint areas of endometriosis on the pelvic sidewalls and the bladder reflection. These were subjected to electrofulguration. Aspiration of the cyst showed no signs for endometriosis. Patient continues on continuous oral contraceptives.?? She describes episodic pelvic pain whichhas worsened over the last 2 months. The pain centers on the area immediately above the vagina, but the patient reports that there are shooting pains to other areas as well. She describes the pain as apressure sensation with sharp exacerbations. The patient reports normal bladder and bowel function.? Patient reports normal appetite.?? She has no nausea or vomiting.?? She has no fever or chills. Patient had a normal Pap smear in 2014. Medications and Allergies: Reviewed. See Medication and Allergies Lists in EMR. OBJECTIVE: Vital Signs: Reviewed; see Vitals Flowsheet in EMR. Pulse 88. Blood pressure 139/85. Weight 165 pounds. Pelvic: Normal external genitalia and BUS. Normal vaginal mucosa with no lesions. Cervix normal, nontender to palpation Uterus are surgically absent. Adnexa: Nontender without palpable mass. ASSESSMENT: Chronic pelvic pain with evidence for mild endometriosis. Status/post subtotal hysterectomy for problems with dysmenorrhea. I have advised the patient that her symptoms may be related to endometriosis, but that the diagnosis is far from definitive. I counseled the patient to consider a course of Depo-Lupron therapy and monitor whether her symptoms improve with that. PLAN: 1. Pelvic ultrasound. 2. Depo-Lupron 3.75 mg IM today; this should be repeated in 28 days. 3. Patient will have a follow-up appointment following her 2nd injection with one of my partners to discuss possible BSO. Dr. Reed Hernandez Dictation Disclaimer: Some notes are completed with voice-recognition dictation software. Typographical errors may result . Please contact me via [employer] message if you note any errors requiring clarification. Madeline Borjas LPN - 10/28/2015 10:30 AM CDT Lupron Depo 3.75 mg IM given in L deltoid. documented in this encounter Plan of Treatment Not on filedocumented as of this encounter Visit Diagnoses Diagnosis Endometriosis - Primary Endometriosis, site unspecified Female pelvic pain Unspecified symptom associated with fema le genital organs documented in this encounter Care Teams Receiving Checker Relationship Specialty Start Date End Date Padmini Park PA-C PCP - General Family Practice 04/05/12 01/19/16 documented as of this encounter
--- OUTSIDE RECORDS SUMMARY | 2022-03-07 11:22 | XMS_ITS | Encounter Summary ---
:1970 Author Organization [employer] Address [address] [place] [address] Care Team Providers Name Role Phone Chirag Metzger PA-C Primary Care Provider Encounter Details Date Type Department Care Team Description 07/06/2016 Lab Visit [facility] Annual physical exam [address] [place], [place] [id number] Social History Tobacco Use Types Packs/Day Years [...] Diagnosis Comme nts LIPID PANEL AND Routine 07/06/2016 8:50 AM Annual physical exa m Results for this DIRECT LDL(IF DEBURR TECHNICIAN procedure are in NEEDED) the results section. documented in this encounter Results (ABNORMAL) Lipid Panel - LDLD If Trig High (07/06/2016 8:50 AM DEBURR TECHNICIAN) [facility] Method Time Signature Cholesterol 209 (H) 0 [...] / Volume Laterality 07/06/2016 8:50 AM 7 DEBURR TECHNICIAN 11:13 AM DEBURR TECHNICIAN Narrative PN SOFT - 07/06/2016 12:31 PM DEBURR TECHNICIAN Performed at [facility], [address] [place] [address] CLIA number [id number] Chirag Metzger PA-C LAB_1 Performing Organization Address City/State/ZIP Code Phon e Number PN SOFT [address] [place] [address] [phone] documented in this encounter Visit Diagnoses Diagnosis Annual physical exam Routine general medical examination at a health care facility documented in this encounter Care Teams Tie Fastener Relationship Specialty Start Date End Date Chirag Metzger PA-C PCP - General Physician Clay Mixer 07/06/16 [address] [place], [place] [id number] documented as of this encounter
--- OUTSIDE RECORDS SUMMARY | 2022-03-07 11:22 | XMS_ITS | Encounter Summary ---
:1970 Author Organization [employer] Address [address] [place] [address] Care Team Providers Name Role Phone Padmini Park PA-C Primary Care Provider Reason for Visit Reason Comments Follow-up Encounter Details Date Type Department Care Team Description 11/25/2015 Office Visit [facility] Indio Hernandez MD Female pelvic pain (Primary Dx); Services-MOTOR MECHANIC [address] [place] [facility] [address] [facility], [address] [address] [place], [place] [phone] [address] (Work) [phone] Social History Tobacco Use Types Packs/Day Years Used Date Smoking Tobacco: Never Smokeless Tobacco: Never Alcohol Use Standard Drinks/Week Comments Yes 0 (1 standard drink = 0.6 oz pure alcoho l) occasional Sex Assigned at Date Recorded Not on file documented as of this encounter Last Filed Vital Signs Vital Sign Reading Time Taken Comments Blood Pressure 154/85 11/25/2015 4:12 PM CDT Pulse 69 11/25/2015 4:12 PM CDT Temperature - - Respiratory Rate - - Oxygen Saturation - - Inhaled Oxygen Concentration - - Weight 77.6 kg (171 lb) 11/25/2015 4:12 PM CDT Height - - Body Mass Index 31.28 07/21/2015 10:45 AM CATHODE BUILDER documented in this encounter Progress Notes Reed Hernandez MD - 11/26/2015 3:02 PM CDT SUBJECTIVE: Patient is a 45-year-old black female, 2, para 2002, status/post supracervical hysterectomy, who is seen for follow-up of chronic pelvic pain and endometriosis. Please refer to my previous notes from 10/28/15. Patient reports that since receiving her initial Depo-Lupron dose she has had marked improvement in her pelvic pain. It is not completely resolved, but issignificantly better than prior to therapy. Patient reports that she has few hot flashes but has hadnight sweats. She finds them manageable. Patient is also concerned about a 6 pound weight gain over the last month. Patient is undecided regarding continuing the Depo-Lupron therapy or undergoing bilateral salpingo-oophorectomy. She wanted to schedule this appointment so she could discuss her options further. Medications and Allergies: Reviewed. See Medication and Allergies Lists in EMR. OBJECTIVE: Vital Signs: Reviewed; see Vitals Flowsheet in EMR. No physical exam performed. ASSESSMENT: Chronic pelvic pain and endometriosis. 10 minutes out of a 10-minute visit were spent with the patient in [id number] consultation reviewing her clinical course to date. In particular, we discussed her weight gain. Patient has gained approximately 21 pounds since last December, with the majority of the weight gain occurring before she started on the Depo-Lupron. Patient reports that she isworking to try to control her weight, but understands that if she continues to gain weight on the medication an alternative remedy may be necessary. Pros and cons of proceeding with BSO were also reviewed in detail. At this time, patient would like to continue on the Depo-Lupron. PLAN: Patient will receive Depo-Lupron 7.5 mg IM on an every 28-30 day basis. The patient will be weighed at her next appointment. If she continues to gain weight, patient will likely stop the Depo-Lupron therapy in favor of BSO. Dr. Reed Hernandez CT: 10 minutes TT:10 minutes Dictation Disclaimer: Some notes are completed with voice-recognition dictation software. Typographical errors may result . Please contact me via [employer] staff message if you note any errors requiring clarification. documented in this encounter Miscellaneous Notes Medication History - Benedict Amaya MD - 01/20/2016 12:00 AM CDT Infusion Synopsis from 10-28-2015 to 11-26-2015 INFUSION MEDS LEUPROLIDE (LUPRON DEPOT) IM Date Dose User 11-26-2015 04:40 PM 7.5 mg Carla Laith Milan LPN SUPPORTIVE CARE MEDS LEUPROLIDE (LUPRON DEPOT) IM Date Dose User 10-28-2015 10:28 AM 3.75 mg Madeline Franks LPN documented in this encounter Plan of Treatment Not on filedocumented as of this encounter Visit Diagnoses Diagnosis Female pelvic pain - Primary Unspecified symptom associated with fema le genital organs Endometriosis Endometriosis, site unspecified documented in this encounter Care Teams Flanging Operator Relationship Specialty Start Date End Date Padmini Park PA-C PCP - General Family Practice 04/05/12 01/19/16 documented as of this encounter
--- OUTSIDE RECORDS SUMMARY | 2022-03-07 11:22 | XMS_ITS | Encounter Summary ---
:1970 Author Organization [employer] Address [address] [place] [address] Care Team Providers Name Role Phone Chirag Metzger PA-C Primary Care Provider Reason for Visit Reason Comments NECK PAIN BACK PAIN BACK PAIN, LOW HEADACHE Encounter Details Date Type Department Care Team Description 08/22/2016 Office Visit [facility] [place], Segmental and somatic dysfun ction of cervical region (Primary Dx); [address] Enoc Lazaro [place] Segmental and somatic dysfun ction of thoracic region; [place] [phone] Segmental and somatic dysfun ction of sacral region; [phone] Cervicalgia; Pain in thoraci c spine; Low back pain ( [facility]) Social History Tobacco Use Types Packs/Day Years Used Date Smoking Tobacco: Never Smokeless Tobacco: Never Alcohol Use Standard Drinks/Week Comments Yes 3 (1 standard drink = 0.6 oz pure alcoho l) Sex Assigned at Date Recorded Not on file documented as of this encounter Progress Notes Enoc Blanca DC - 08/22/2016 9:32 AM CDT Marla Cuellar is 43 yr [...] Lumbago documented in this encounter Care Teams Manager Speech Relationship Specialty Start Date End Date Chirag Metzger PA-C PCP - General Physician Life Skills Educator 07/06/16 [address] [place] [address] documented as of this encounter
--- OUTSIDE RECORDS SUMMARY | 2022-03-07 11:23 | XMS_ITS | Encounter Summary ---
:1970 Author Organization [employer] Address [address] [place] [address] Care Team Providers Name Role Phone Padmini Park PA-C Primary Care Provider Reason for Visit Reason Comments Appt. Needed Symptoms Encounter Details Date Type Department Care Team Description 10/25/2015 Nurse Triage [facility] Indio Hernandez MD Appt. Needed; Services-INGOT CAR OPERATOR [address] [facility] Symptoms [address] [place], [place] [address] [address] [place], [place] [phone] (Wo rk) [address] [phone] Social History Tobacco Use Types Packs/Day Years Used Date Smoking Tobacco: Never Smokeless Tobacco: Never Alcohol Use Standard Drinks/Week Comments Yes 0 (1 standard drink = 0.6 oz pure alcoho l) occasional Sex Assigned at Date Recorded Not on file documented as of this encounter Nursing Notes Liss Cho, RN - 10/25/2015 2:03 PM CDT Protocol: ABDOMINAL PAIN - [id number] Affirmative: Patient wants to be seen Disposition of See Within 12 - 24 Hours (Office or Urgent Care) suggested. Pt calling to be seen this week to discuss with provider treatment for her endometriosis. Pt was diagnosed with this one year ago and says the last few days she is experiencing mild to moderate lower abdominal pelvic pain being managed with motrin. Pt denies any vag bleeding. Advised if pain worsening, constant to go to ER for further evaluation. consult appt made documented in this encounter Plan of Treatment Not on filedocumented as of this encounter Visit Diagnoses Not on filedocumented in this encounter Care Teams Digital Marketing Officer Relationship Specialty Start Date End Date Padmini Park PA-C PCP - General Family Practice 04/05/12 01/19/16 documented as of this encounter
--- OUTSIDE RECORDS SUMMARY | 2022-03-07 11:23 | XMS_ITS | Encounter Summary ---
:1970 Author Organization [employer] Address [address] [place] [address] Care Team Providers Name Role Phone Padmini Park PA-C Primary Care Provider Reason for Visit Reason Comments NECK PAIN BACK PAIN BACK PAIN, LOW Encounter Details Date Type Department Care Team Description 10/19/2014 Office Visit [facility], Nonallopathic lesion of cerv ical region, not elsewhere classified (Primary Dx); [address] Enoc Lazaro [place] Nonallopathic lesion of thor acic region, not elsewhere classified; [place] [address] Nonallopathic lesion of sacr al region, not elsewhere classified; [phone] Cervicalgia; Spasm of muscle Social History Tobacco Use Types Packs/Day Years Used Date Smoking Tobacco: Never Smokeless Tobacco: Never Alcohol Use Standard Drinks/Week Comments Yes 0 (1 standard drink = 0.6 oz pure alcoho l) occasional Sex Assigned at Date Recorded Not on file documented as of this encounter Progress Notes Enoc Blanca DC - 10/19/2014 1:56 PM CDT Marla Cuellar is 43 yr female here for Chief Complaint Patient presents with ??? NECK PAIN ??? BACK PAIN ??? BACK PAIN, LOW Onset of right low back, mid back, neck pain with headaches from slipping on ice on 08/10/2014 whileat work. Flare-up of her condition. Review of systems: Denies numbness, tingling, or weakness in the extremities. Denies change in bowel/bladder function. Past medical, surgical, social, and family history has been reviewed. Objective: There were no vitals taken for this visit. Estimated body mass index is 31.76 kg/(m^2) as calculated from the following: Height as of 08/01/13: 5' 1 (1.549 m). Weight as of 08/01/13: 168 lb (76.204 kg). Inspection: No bruising, swelling, erythema is seen. Patient is alert and oriented. Soft Tissue: Mild to moderate hypertonicity/muscle spasm and tenderness is noted in the sacroiliac, thoracic and cervical regions. Range of Motion: Decreased with right sided thoracic pain upon flexion, extension and right rotation. Ortho/Neuro: Misalignment/Malpositions: Hypomobility/misalignment was noted in the sacroiliac, T9-T10, C2-C3 regions. Assessment: 1. Nonallopathic lesion of cervical region, not elsewhere classified 2. Nonallopathic lesion of thoracic region, not elsewhere classified 3. Nonallopathic lesion of sacral region, not elsewhere classified 4. Cervicalgia 5. Spasm of muscle Plan: Diagnostic plan: No further testing/evaluation at [...] as of this encounter Visit Diagnoses Diagnosis Nonallopathic lesion of cervical region, not elsewhere classified - Primary Nonallopathic lesion of thoracic region, not elsewhere classified Nonallopathic lesion of sacral region, n ot elsewhere classified Cervicalgia Spasm of muscle documented in this encounter Care Teams Mold Capper Helper Relationship Specialty Start Date End Date Padmini Park PA-C PCP - General Family Practice 04/05/12 01/19/16 documented as of this encounter
--- OUTSIDE RECORDS SUMMARY | 2022-03-07 11:23 | XMS_ITS | Encounter Summary ---
:1970 Author Organization [employer] Address [address] [place] [address] Care Team Providers Name Role Phone Padmini Park PA-C Primary Care Provider Reason for Visit Reason Comments Other Encounter Details Date Type Department Care Team Description 01/14/2015 Telephone [facility] Eulalia Alvarez MD Other Services-SCREEN PRINTING LOADER UNLOADER [address] [facility] [id number] [place] [address] [address] [place] [address] [phone] Social History Tobacco Use Types Packs/Day Years Used Date Smoking Tobacco: Never Smokeless Tobacco: Never Alcohol Use Standard Drinks/Week Comments Yes 0 (1 standard drink = 0.6 oz pure alcoho l) occasional Sex Assigned at Date Recorded Not on file documented as of this encounter Nursing Notes Liss Cho RN - 01/18/2015 11:08 AM CDT LM regarding setting up appt for her diagnostic laproscopy for pelvic pain with either Dr. Kim Hernandez. Number provided to set up appt. Barb Alvarez MD - 01/15/2015 4:18 PM CDT Called patient. She states that she was inpatient at [facility] on 01/12 with pelvic pain similar to what I had previously seen her for. She had a CT of the abd/pelvis which was normal with the exception of mild diverticulosis. During her stay there, she met Dr. Hernandez who consulted on her pain and she states that he told her that it may be endometriosis. I did review her operative and pathology reports from her [facility] done in 2004 which indicated adhesions from her previous C/S, but no endometriosis was noted on either the operative report or pathology report. She also saw Colorectal Surgery earlier this month where she had a flex sig and was told that it was normal with the exception of mild diverticulosis. I recommended that we proceed with scheduling a diagnostic laparoscopy for pelvic pain. She wouldlike to have this done as soon as possible, either by me or Dr. Hernandez. Please call her to schedule a diagnostic laparoscopy with either myself or Dr. Hernandez. Dx: pelvic pain. Thanks. Amy Marshall, MARTITA - 01/15/2015 1:53 PM CDT Please call pt at Wk , checking to see if fax was received? Liss Cho, RN - 01/14/2015 11:18 AM CDT Pt will be faxing over today past medical records for her provider to review to see if she needs surgery in the future. Pt aware provider out of office today but back tomorrow. Pt requesting a phone call from provider to discuss POC. Keara Ward [phone] . Can be reached here at this number tomorrow or her cell number [phone]. OK to LM documented in this encounter Plan of Treatment Not on filedocumented as of this encounter Visit Diagnoses Not on filedocumented in this encounter Care Teams Handle Attacher Relationship Specialty Start Date End Date Padmini Park PA-C PCP - General Family Practice 04/05/12 01/19/16 documented as of this encounter
--- OUTSIDE RECORDS SUMMARY | 2022-03-07 11:23 | XMS_ITS | Encounter Summary ---
:1970 Author Organization [employer] Address [address] [place] [address] Care Team Providers Name Role Phone Padmini Park PA-C Primary Care Provider Reason for Visit Reason Comments NECK PAIN BACK PAIN BACK PAIN, LOW Encounter Details Date Type Department Care Team Description 12/03/2014 Office Visit [facility], Nonallopathic lesion of cerv ical region, not elsewhere classified (Primary Dx); [address] [place] Nonallopathic lesion of thor acic region, not elsewhere classified; [place] [address] Nonallopathic lesion of sacr al region, not elsewhere classified; [phone] Cervicalgia; Spasm of muscle Social History Tobacco Use Types Packs/Day Years Used Date Smoking Tobacco: Never Smokeless Tobacco: Never Alcohol Use Standard Drinks/Week Comments Yes 0 (1 standard drink = 0.6 oz pure alcoho l) occasional Sex Assigned at Date Recorded Not on file documented as of this encounter Progress Notes Enoc Blanca DC - 12/03/2014 4:41 PM CDT Marla Cuellar is 43 yr female here for Chief Complaint Patient presents with ??? NECK PAIN ??? BACK PAIN ??? BACK PAIN, LOW Onset of right low back, mid back, neck pain with headaches. Worse.11/27 Review of systems: Denies numbness, tingling, or [...] muscle documented in this encounter Care Teams Trim And Burr Operator Relationship Specialty Start Date End Date Padmini Park PA-C PCP - General Family Practice 04/05/12 01/19/16 documented as of this encounter
--- OUTSIDE RECORDS SUMMARY | 2022-03-07 11:23 | XMS_ITS | Encounter Summary ---
:1970 Author Organization [employer] Address [address] [place] [address] Care Team Providers Name Role Phone Padmini Park PA-C Primary Care Provider Reason for Visit Reason Comments NECK PAIN BACK PAIN Encounter Details Date Type Department Care Team Description 07/08/2014 Office Visit [facility] [place], Nonallopathic lesion of sacr al region, not elsewhere classified (Primary Dx); [address] [place] Nonallopathic lesion of thor acic region, not elsewhere classified; [place] [id number] Nonallopathic lesion of cerv ical region, not elsewhere classified; [phone] Spasm of muscle Social History Tobacco Use Types Packs/Day Years Used Date Smoking Tobacco: Never Smokeless Tobacco: Never Alcohol Use Standard Drinks/Week Comments Yes 0 (1 standard drink = 0.6 oz pure alcoho l) occasional Sex Assigned at Date Recorded Not on file documented as of this encounter Progress Notes Enoc Blanca DC - 07/08/2014 10:31 AM CST Subjective Keara Cuellar is 43 yr female here for Chief Complaint Patient presents with ??? NECK PAIN ??? BACK PAIN Onset: Insidious onset of low back, mid back, neck pain and headaches. 09/27 Review of systems: Denies numbness, tingling, or [...] spasm and tenderness is noted in the Cervical, thoracic and lumbosacral regions. Range of Motion: Decreased Ortho/Neuro: Unremarkable. Misalignment/Malpositions: Hypomobility/misalignment was noted in the C4-C5, T3- T4 and sacroiliac regions. Assessment: 1. Nonallopathic lesion of sacral region, not elsewhere classified 2. Nonallopathic lesion of thoracic region, not elsewhere classified 3. Nonallopathic lesion of cervical region, not elsewhere classified 4. Spasm of muscle Plan: Diagnostic plan: No further testing/evaluation at this time. Therapeutic plan: Patient consented to care. Spinal manipulative therapy (SMT) was applied to the Cervical, thoracic and lumbosacral regions. Trigger point therapy was applied to the soft tissue for 8-9 minutes. Patient tolerated treatment well. Goals: Resolve current complaints. Treatment plan: PRN Educational plan: PIRIFORMIS EXERCISES: 3 REPETITIONS @ 30 SECONDS/2-3 TIMES PER DAY TO IMPROVE FLEXIBILITY/FUNCTIO, DECREASE PAIN AND REHABILITATE THE LUMBOSACRAL AND HIP REGIONS. CERVICAL RETRACTION WITH ROTATION EXERCISES: 5 REPETITIONS/2-3MTIMES PER DAY TO IMPROVE FLEXIBILITY/FUNCTION, DECREASE PAIN AND REHABILITATE THE CERVICAL AND UPPER THORACIC AREAS. THORACIC ROTATION EXERCISES: 5 REPETITIONS/2-3MTIMES PER DAY TO IMPROVE FLEXABILTY/FUNCTION, DECREASE PAIN AND REHABILITATE THE THORACIC REGIONS. Enoc Blanca [place] MANAGER documented in this encounter Plan of Treatment Not on filedocumented as of this encounter Visit Diagnoses Diagnosis Nonallopathic lesion of sacral region, n ot elsewhere classified - Primary Nonallopathic lesion of thoracic region, not elsewhere classified Nonallopathic lesion of cervical region, not elsewhere classified Spasm of muscle documented in this encounter Care Teams Retail Account Specialist Relationship Specialty Start Date End Date Padmini Park PA-C PCP - General Family Practice 04/05/12 01/19/16 documented as of this encounter
--- OUTSIDE RECORDS SUMMARY | 2022-03-07 11:23 | XMS_ITS | Encounter Summary ---
:1970 Author Organization [employer] Address [address] [place] [address] Care Team Providers Name Role Phone Padmini Park PA-C Primary Care Provider Reason for Visit Reason Comments Pre-visit Planning Encounter Details Date Type Department Care Team Description 09/20/2015 Telephone [facility], Pre-visit Planning [address] [place], [place] [address] Social History Tobacco Use Types Packs/Day Years Used Date Smoking Tobacco: Never Smokeless Tobacco: Never Alcohol Use Standard Drinks/Week Comments Yes 0 (1 standard drink = 0.6 oz pure alcoho l) occasional Sex Assigned at Date Recorded Not on file documented as of this encounter Nursing Notes Desi Gillespie - 09/20/2015 7:38 AM CDT appt is fine as scheduled. Agata Reilly - 09/20/2015 7:34 AM CDT Patient would like to speak to his either provider or nurse Name of patient's provider: Rianna Summarize the patient's question or concern: pt requested earliest appt on 09/20 w/Chiro. Pt scheduledfor 7:15. This message is being sent to clinic to make sure OK to keep time slot. System let home health scheduler take this slot but it may not match 15 time slot? Please review to make sure OK to keep. Is it okay to leave detailed message on your voicemail? y If after 3pm, can this wait until tomorrow? n Agata Reilly documented in this encounter Plan of Treatment Not on filedocumented as of this encounter Visit Diagnoses Not on filedocumented in this encounter Care Teams Voice Network Administrator Relationship Specialty Start Date End Date Padmini Park PA-C PCP - General Family Practice 04/05/12 01/19/16 documented as of this encounter
--- OUTSIDE RECORDS SUMMARY | 2022-03-07 11:23 | XMS_ITS | Encounter Summary ---
:1970 Author Organization [employer] Address [address] [place] [address] Care Team Providers Name Role Phone Padmini Park PA-C Primary Care Provider Reason for Visit Reason Comments Patient Calling Back Encounter Details Date Type Department Care Team Description 12/16/2014 Telephone Chirag Chopra PA-C Patient Calling Back [address] [place] [address] [place] [address] [phone] (Wo rk) Social History Tobacco Use Types Packs/Day Years Used Date Smoking Tobacco: Never Smokeless Tobacco: Never Alcohol Use Standard Drinks/Week Comments Yes 0 (1 standard drink = 0.6 oz pure alcoho l) occasional Sex Assigned at Date Recorded Not on file documented as of this encounter Nursing Notes Padmini Napier LPN - 12/16/2014 1:46 PM CDT See other phone notes for details. Duplicate message. Marley Huertas - 12/16/2014 1:35 PM CDT Pt calling back regarding a call from a nurse today documented in this encounter Plan of Treatment Not on filedocumented as of this encounter Visit Diagnoses Not on filedocumented in this encounter Care Teams Decorating Supervisor Relationship Specialty Start Date End Date Padmini Park PA-C PCP - General Family Practice 04/05/12 01/19/16 documented as of this encounter
--- OUTSIDE RECORDS SUMMARY | 2022-03-07 11:23 | XMS_ITS | Encounter Summary ---
:1970 Author Organization [employer] Address [address] [place] [address] Care Team Providers Name Role Phone Padmini Park PA-C Primary Care Provider Reason for Visit Reason Comments NECK PAIN BACK PAIN Encounter Details Date Type Department Care Team Description 06/17/2014 Office Visit [facility] [place]ian[place], Nonallopathic lesion of sacr al region, not elsewhere classified (Primary Dx); [address] [place] Nonallopathic lesion of thor acic region, not elsewhere classified; [place] [id number] Nonallopathic lesion of cerv ical region, not elsewhere classified; [phone] Spasm of muscle Social History Tobacco Use Types Packs/Day Years Used Date Smoking Tobacco: Never Smokeless Tobacco: Never Alcohol Use Standard Drinks/Week Comments Yes 0 (1 standard drink = 0.6 oz pure alcoho l) occasional Sex Assigned at Date Recorded Not on file documented as of this encounter Progress Notes Enoc Blanca DC - 06/17/2014 8:26 AM CST Subjective Keara Cuellar is 43 yr female here for Chief Complaint Patient presents with ??? NECK PAIN ??? BACK PAIN Onset: Insidious onset of low back, mid back, neck pain and headaches. Continues to have neck pain. 08/28 Review of systems: Denies numbness, tingling, or [...] REHABILITATE THE THORACIC REGIONS. Enoc Blanca DC TY CULTURIST APPRENTICE documented in this encounter Plan of Treatment Not on filedocumented as of this encounter Visit Diagnoses Diagnosis Nonallopathic lesion of sacral region, n ot elsewhere classified - Primary Nonallopathic lesion of thoracic region, not elsewhere classified Nonallopathic lesion of cervical region, not elsewhere classified Spasm of muscle documented in this encounter Care Teams Legal Cashier Relationship Specialty Start Date End Date Padmini Park PA-C PCP - General Family Practice 04/05/12 01/19/16 documented as of this encounter
--- OUTSIDE RECORDS SUMMARY | 2022-03-07 11:23 | XMS_ITS | Encounter Summary ---
:1970 Author Organization [facility] Address [address] [place] [address] Care Team Providers Name Role Phone Padmini Park PA-C Primary Care Provider Reason for Visit Reason Comments Medication Request Encounter Details Date Type Department Care Team Description 12/18/2014 Telephone [facility] Chirag Viera PA-C Medication Request [address] [place] [address] [place] [address] [phone] (Wo rk) Social History Tobacco Use Types Packs/Day Years Used Date Smoking Tobacco: Never Smokeless Tobacco: Never Alcohol Use Standard Drinks/Week Comments Yes 0 (1 standard drink = 0.6 oz pure alcoho l) occasional Sex Assigned at Date Recorded Not on file documented as of this encounter Nursing Notes Sumaya Rooney - 12/18/2014 5:08 PM CDT Spoke w/ pt, would like faxed to [facility] in [place] instead. Faxed per request. Note complete. Chirag Metzger PA-C - 12/18/2014 4:49 PM CDT Rx for tramadol on Barb's desk. May take 1 tab every 6 hours as needed when pain is flared up. Katerina Arnold RN - 12/18/2014 10:41 AM CDT Reason for Call: Medication Request. Next Steps: Document further recommendations and route to appropriate person or pool. Patient IS expecting a call back from Care Team. Additional Information: Pt is 44 yr old woman who saw Chirag Metzger on 11-04-14 for rectal pain. Is calling to request pain meds. Cannot get up to [facility] PRES[facility] DEVELOP[facility] but has appt on 01-17-15 for flex-sig. Those providers will not give pain med and advised pcp to do that. Pt states that ibuprofen gives her rebound headaches so cannot take that. Oxycodone makes her sick. Is requesting pain meds please to get her through until 01-17-15. Callback # [phone] wk until 6:30p/ lunch 12:30p for 45 min. Eleazar Pedersen - 12/18/2014 10:14 AM CDT [facility] Medication Issue/Refill Primary Care Provider: Chirag Metzger PA-C (General) Patient to contact pharmacy: no, new medication Comment: Patient calling stating that she has a procedure scheduled with Colon/rectal Surgery [facility] on 01/17. Patient is requesting a prescription for the pain until then. Pharmacy Name & Phone #: [id number] - [place] [place] - [address] [facility] Pharmacy Street or City: Drug Name: Any medication for pain other then oxycodone Strength: Dose/Route/Freq: *ECODE documented in this encounter Plan of Treatment Not on filedocumented as of this encounter Visit Diagnoses Not on filedocumented in this encounter Care Teams Corporate Intern Relationship Specialty Start Date End Date Padmini Park PA-C PCP - General Family Practice 04/05/12 01/19/16 documented as of this encounter
--- OUTSIDE RECORDS SUMMARY | 2022-03-07 11:23 | XMS_ITS | Encounter Summary ---
:1970 Author Organization [employer] Address [address] [place] [address] Care Team Providers Name Role Phone Padmini Park PA-C Primary Care Provider Reason for Visit Reason Comments NECK PAIN BACK PAIN BACK PAIN, LOW Encounter Details Date Type Department Care Team Description 02/26/2015 Office Visit [facility] [place] Blanca nonallopathic lesion o f cervical region (Primary Dx); [address] [place] Nonallopathic lesion of thor acic region; [place] [id number] Nonallopathic lesion of sacr al region; [phone] Cervicalgia; Spasm of muscle Social History Tobacco Use Types Packs/Day Years Used Date Smoking Tobacco: Never Smokeless Tobacco: Never Alcohol Use Standard Drinks/Week Comments Yes 0 (1 standard drink = 0.6 oz pure alcoho l) occasional Sex Assigned at Date Recorded Not on file documented as of this encounter Progress Notes Enoc Blanca DC - 02/26/2015 1:47 PM CDT Marla Cuellar is 43 yr female here for Chief Complaint Patient presents with ??? NECK PAIN ??? BACK PAIN ??? BACK PAIN, LOW Onset of left low back, mid back, neck pain with headaches. Flare-up of pain 6/10, worse at night Review of systems: Denies numbness, tingling, or [...] the sacroiliac, T9-T10, C2-C3 regions. Assessment: 1. Other nonallopathic lesion of cervical region 2. Nonallopathic lesion of thoracic region 3. Nonallopathic lesion of sacral region 4. Cervicalgia 5. Spasm of muscle Plan: [...] 2 - 3 TIMES PER DAY. Enoc Bal[place]ca DC documented in this encounter Plan of Treatment Not on filedocumented as of this encounter Visit Diagnoses Diagnosis Other nonallopathic lesion of cervical r egion - Primary Nonallopathic lesion of thoracic region Nonallopathic lesion of thoracic region, not elsewhere classified Nonallopathic lesion of sacral region Nonallopathic lesion of sacral region, n ot elsewhere classified Cervicalgia Spasm of muscle documented in this encounter Care Teams Superintendent Compressor Stations Relationship Specialty Start Date End Date Padmini Park PA-C PCP - General Family Practice 04/05/12 01/19/16 documented as of this encounter
--- OUTSIDE RECORDS SUMMARY | 2022-03-07 11:23 | XMS_ITS | Encounter Summary ---
:1970 Author Organization [employer] Address [address] [place] [address] Care Team Providers Name Role Phone Padmini Park PA-C Primary Care Provider Reason for Visit Reason Comments NECK PAIN BACK PAIN BACK PAIN, LOW Encounter Details Date Type Department Care Team Description 09/02/2015 Office Visit [facility] Rianna, Segmental and somatic dysfun ction of cervical region (Primary Dx); [address] [place] Segmental and somatic dysfun ction of thoracic region; [place] [id number] Segmental and somatic dysfun ction of sacral region; [phone] Cervical pain ( neck); Spasm of back m uscles Social History Tobacco Use Types Packs/Day Years Used Date Smoking Tobacco: Never Smokeless Tobacco: Never Alcohol Use Standard Drinks/Week Comments Yes 0 (1 standard drink = 0.6 oz pure alcoho l) occasional Sex Assigned at Date Recorded Not on file documented as of this encounter Progress Notes En[place] Blanca DC - 09/03/2015 10:02 AM CDT Marla Cuellar is 43 yr female here for Chief Complaint Patient presents with ??? NECK PAIN ??? BACK PAIN ??? BACK PAIN, LOW Onset of neck pain with headaches, mid back and low back pain that started yesterday.. Flare-up of pain.08/28 Review of systems: Denies numbness, tingling, or [...] sacral region 4. Cervical pain (neck) 5. Spasm of back muscles Plan: Diagnostic [...] ot elsewhere classified Cervical pain (neck) Cervicalgia Spasm of back muscles Other symptoms referable to back documented in this encounter Care Teams Network Systems Engineer Relationship Specialty Start Date End Date Padmini Park PA-C PCP - General Family Practice 04/05/12 01/19/16 documented as of this encounter
--- OUTSIDE RECORDS SUMMARY | 2022-03-07 11:23 | XMS_ITS | Encounter Summary ---
:1970 Author Organization [employer] Address [address] [place] [address] Care Team Providers Name Role Phone Padmini Park PA-C Primary Care Provider Reason for Visit Reason Comments RECTAL PAIN Encounter Details Date Type Department Care Team Description 12/16/2014 Telephone [facility] Chirag Viera PA-C RECTAL PAIN [address] [place] [address] [place] [address] [phone] (Wo rk) Social History Tobacco Use Types Packs/Day Years Used Date Smoking Tobacco: Never Smokeless Tobacco: Never Alcohol Use Standard Drinks/Week Comments Yes 0 (1 standard drink = 0.6 oz pure alcoho l) occasional Sex Assigned at Date Recorded Not on file documented as of this encounter Progress Notes Chirag Metzger PA-C - 12/16/2014 5:07 PM CDT Addended by: CHIRAG METZGER on: 12/16/2014 05:07 PM Modules accepted: Orders documented in this encounter Nursing Notes Ela Oakes LPN - 12/17/2014 8:05 AM CDT left message with below info. Chirag Metzger PA-C - 12/16/2014 5:07 PM CDT Order entered for Colorectal surgery, emergent basis. Please call the General Surgery dept. at [phone] to schedule your appointment with Dr. Carcamo. If he isn't able to get you in within 7 days, please let me know and we'll prescribe something to help with pain Padmini Napier LPN - 12/16/2014 1:48 PM CDT Pt calling back, her colo-rectal provider said they will not give her pain meds she needs to get that from her PCP. Pt has been taking high doses of Ibuprofen with little relief. Pt also asking if we can get her in to our colo/rectal dept before the end of December. Pt states she is in a lot of pain andcan not wait that long to get in. Tiffany Hurtado LPN - 12/16/2014 1:25 PM CDT Message left for the pt with Chirag's advice to contact the colo-rectal provider she has seen for painmeds. Chirag Metzger PA-C - 12/16/2014 9:57 AM CDT Since she has seen the colo-rectal provider for this issue before, I would recommend checking with her to see if she would provide pain medication prior to your visit in December. Padmini Napier LPN - 12/16/2014 9:32 AM CDT Pt sees an outside [place]-rectal provider. She was seen by Dr Alvarez and you for this issue. Gloria Gonzales - 12/16/2014 9:00 AM CDT Pt requesting to speak with PCP to discuss rectal and pelvic pain concerns. Pt says the soonest she can get in to see a Colon and Rectal specialist is 01/18/15. Pt is asking for PCP to prescribe pain medication until her appt or if PCP can assist pt with getting in sooner. Please return pt's call. documented in this encounter Plan of Treatment Not on filedocumented as of this encounter Visit Diagnoses Diagnosis Rectal pain - Primary Anal or rectal pain documented in this encounter Care Teams Radio Equipment Repairer Relationship Specialty Start Date End Date Padmini Park PA-C PCP - General Family Practice 04/05/12 01/19/16 documented as of this encounter
--- OUTSIDE RECORDS SUMMARY | 2022-03-07 11:23 | XMS_ITS | Encounter Summary ---
:1970 Author Organization [employer] Address [address] [place] [address] Care Team Providers Name Role Phone Padmini Park PA-C Primary Care Provider Reason for Visit Reason Comments Refill Encounter Details Date Type Department Care Team Description 06/06/2015 Refill [facility] Jovanni e Chirag Metzger PA-C Refill [address] [place] [address] [place] [address] [phone] (Wo rk) Social History Tobacco Use Types Packs/Day Years Used Date Smoking Tobacco: Never Smokeless Tobacco: Never Alcohol Use Standard Drinks/Week Comments Yes 0 (1 standard drink = 0.6 oz pure alcoho l) occasional Sex Assigned at Date Recorded Not on file documented as of this encounter Nursing Notes Howard Aguirre, RN - 06/08/2015 9:24 AM CST Renewed medication per medication refill protocol. Requested Prescriptions Signed Prescriptions Disp Refills ??? ibuprofen (MOTRIN) 800 mg tablet 30 tablet 2 Sig: TAKE 1 TABLET BY MOUTH 3 TIMES DAILY. Authorizing Provider: CHIRAG METZGER Ordering User: HOWARD AGUIRRE UMER AFFAIRS MANAGER User, Elissa - 06/08/2015 9:24 AM CST ibuprofen (MOTRIN) 800 mg tablet [Pharmacy Med Name: IBUPROFEN 800MG TABLET] - MEDICATION STARTED: 12/04/2012 - LAST REFILLED ON: 01/13/2015, QTY: 30, Refills: 1, Sig: take 1 tablet by mouth 3 times daily. (unchanged) - WARNING: This medication may not have been authorized by the requested provider. - NOTIFICATION: RBC is abnormal (4.19m/cmm lies outside 4.2m/cmm - 5.9m/cmm) - REFILL: 9 months (if notifications and warnings resolved) - RATIONALE: This refill should last until the patient is due for an office visit. - LAST QUALIFYING VISIT WITH CHIRAG METZGER: 01/13/2015 - NEXT SCHEDULED VISIT: None - SBP: 118.0mm Hg on 01/13/2015 - DBP: 72.0mm Hg on 01/13/2015 - Cr: 0.7mg/dL on 09/11/2013 - PLT: 273.0k/cmm on 09/11/2013 - HGB: 12.7g/dL on 09/11/2013 - RBC: 4.19m/cmm on 09/11/2013 - RDW: 11.7% on 09/11/2013 - HCT: 37.6% on 09/11/2013 - WBC: 9.8k/cmm on 09/11/2013 Powered by [employer], Reference: [id number], 06/06/2015 1:29:12 PM Titus PELLETIER: DAVID REFILL ([id number]) UMER AFFAIRS MANAGER documented in this encounter Plan of Treatment Not on filedocumented as of this encounter Visit Diagnoses Not on filedocumented in this encounter Care Teams Marketing Programs Specialist Relationship Specialty Start Date End Date Padmini Park PA-C PCP - General Family Practice 04/05/12 01/19/16 documented as of this encounter
--- OUTSIDE RECORDS SUMMARY | 2022-03-07 11:23 | XMS_ITS | Encounter Summary ---
:1970 Author Organization [employer] Address [address] [place] [address] Care Team Providers Name Role Phone Padmini Park PA-C Primary Care Provider Reason for Visit Reason Comments Post-Op Check Encounter Details Date Type Department Care Team Description 03/03/2015 Office Visit [facility] Indio Hernandez MD Postop check (Primary Dx); Services-OPERATIONS AND MAINTENANCE MANAGER [address] [address] Abdominal gas pain [address] [place], [place] [address] [address] [place], [place] [phone] (Wo rk) [address] [phone] Social History Tobacco Use Types Packs/Day Years Used Date Smoking Tobacco: Never Smokeless Tobacco: Never Alcohol Use Standard Drinks/Week Comments Yes 0 (1 standard drink = 0.6 oz pure alcoho l) occasional Sex Assigned at Date Recorded Not on file documented as of this encounter Progress Notes Reed Hernandez MD - 03/03/2015 3:59 PM CDT SUBJECTIVE: The patient is a 44-year-old black female, 2, para 2002, who is seen for post-opcheck. Patient underwent diagnostic laparoscopy with aspiration of left ovarian cyst on 02/02/15. Pathology report showed Briana endometriosis. Patient continues on continuous oral contraceptives. She describes episodic left-sided pain. Patient is more concerned about gas pains which continue to the present time. Patient reports that the gas painsmove around the abdomen. She has used gas asked with little relief. Patient reports that she has regular bowel movements. These are small in caliber, normal color, and not associated with any bleeding. Patient reports normal appetite. She has no nausea or vomiting. She has no fever or chills. Medications and Allergies: Reviewed. See Medication and Allergies Lists in EMR. OBJECTIVE: Vital Signs: Reviewed; see Vitals Flowsheet in EMR. Blood pressure 128/83. Weight 159 pounds. ASSESSMENT: 1. Postop check. 2. Endometriosis. 3. Abdominal gas pains. PLAN: 1. KUB and upright of the abdomen. 2. Consultation with Internal medicine regarding gas pains. 3. Prescription for simethicone. Patient will use Metamucil on her own. 4. Patient continue on continuous oral contraceptives. Patient was given information about danazol and Depo-Lupron; she will contact the office if she wishes to continue on the oral contraceptives or use one of these alternative therapies. 5. Return to clinic in 6 months for followup of endometriosis. Dr. Reed Hernandez Dictation Disclaimer: Some notes are completed with voice-recognition dictation software. Typographical errors may result . Please contact me via [employer] staff message if you note any errors requiring clarification. documented in this encounter Plan of Treatment Not on filedocumented as of this encounter Visit Diagnoses Diagnosis Postop check - Primary Follow-up examination, following unspeci fied surgery Abdominal gas pain Flatulence, eructation, and gas pain documented in this encounter Care Teams Pulverizer Operator Relationship Specialty Start Date End Date Padmini Park PA-C PCP - General Family Practice 04/05/12 01/19/16 documented as of this encounter
--- OUTSIDE RECORDS SUMMARY | 2022-03-07 11:23 | XMS_ITS | Encounter Summary ---
:1970 Author Organization [employer] Address [address] [place] [address] Care Team Providers Name Role Phone Padmini Park PA-C Primary Care Provider Reason for Visit Reason Comments NECK PAIN BACK PAIN BACK PAIN, LOW Encounter Details Date Type Department Care Team Description 03/09/2015 Office Visit [facility] Pita Blanac nonallopathic lesion o f cervical region (Primary Dx); [address] [place] Nonallopathic lesion of thor acic region; [place] [phone] Nonallopathic lesion of sacr al region; [phone] Cervicalgia; Spasm of muscle Social History Tobacco Use Types Packs/Day Years Used Date Smoking Tobacco: Never Smokeless Tobacco: Never Alcohol Use Standard Drinks/Week Comments Yes 0 (1 standard drink = 0.6 oz pure alcoho l) occasional Sex Assigned at Date Recorded Not on file documented as of this encounter Progress Notes Enoc Blanca DC - 03/09/2015 2:46 PM CDT Marla Cuellar is 43 yr female here for Chief Complaint Patient presents with ??? NECK PAIN ??? BACK PAIN ??? BACK PAIN, LOW Onset of left low back, mid back, neck pain with headaches. Improvement 4/10, worse at night Review of systems: Denies [...] muscle documented in this encounter Care Teams [place] Tour Guide Relationship Specialty Start Date End Date Padmini Park PA-C PCP - General Family Practice 04/05/12 01/19/16 documented as of this encounter
--- OUTSIDE RECORDS SUMMARY | 2022-03-07 11:23 | XMS_ITS | Encounter Summary ---
:1970 Author Organization [employer] Address [address] [place] [address] Care Team Providers Name Role Phone Padmini Park PA-C Primary Care Provider Reason for Visit Reason Comments LAB RESULTS Encounter Details Date Type Department Care Team Description 07/23/2015 Telephone [facility] Chirag Viera PA-C LAB RESULTS [address] [place] [address] [place] [address] [phone] (Wo rk) Social History Tobacco Use Types Packs/Day Years Used Date Smoking Tobacco: Never Smokeless Tobacco: Never Alcohol Use Standard Drinks/Week Comments Yes 0 (1 standard drink = 0.6 oz pure alcoho l) occasional Sex Assigned at Date Recorded Not on file documented as of this encounter Nursing Notes Juana Dinero LPN - 07/23/2015 3:33 PM CST Pt notified of below. ST AND CONSERVATION WORKER Chirag Metzger PA-C - 07/23/2015 3:27 PM CST I had sent her results via [employer] on 07/20, positive for yeast, Rx was faxed that day. ST AND CONSERVATION WORKER Sumaya Rankin LPN - 07/23/2015 3:12 PM CST Reason for Call: Lab results requested. Next Steps: Route to [facility] for patient follow up. Additional Information: Requesting result and treatment for yeast infection. Spoke to pt - she wanted her results of her yeast infection culture (vaginal probe tested positive for yeast) Will sned message onto provider for treatment. ST AND CONSERVATION WORKER Pat Ny - 07/23/2015 3:07 PM CST Pt requesting her lab results from Sunday. Transfer to triage. ST AND CONSERVATION WORKER documented in this encounter Plan of Treatment Not on filedocumented as of this encounter Visit Diagnoses Not on filedocumented in this encounter Care Teams Dean Of Admissions Relationship Specialty Start Date End Date Padmini Park PA-C PCP - General Family Practice 04/05/12 01/19/16 documented as of this encounter
--- OUTSIDE RECORDS SUMMARY | 2022-03-07 11:23 | XMS_ITS | Encounter Summary ---
:1970 Author Organization [x+1] Address [address] [place] [address] Care Team Providers Name Role Phone Padmini Park PA-C Primary Care Provider Reason for Visit Reason Comments NECK PAIN BACK PAIN Encounter Details Date Type Department Care Team Description 05/06/2014 Office Visit [facility] [place], Nonallopathic lesion of sacr al region, not elsewhere classified (Primary Dx); [address] [place]az[place] Nonallopathic lesion of thor acic region, not elsewhere classified; [place] [phone] Nonallopathic lesion of cerv ical region, not elsewhere classified; [phone] Spasm of muscle Social History Tobacco Use Types Packs/Day Years Used Date Smoking Tobacco: Never Smokeless Tobacco: Never Alcohol Use Standard Drinks/Week Comments Yes 0 (1 standard drink = 0.6 oz pure alcoho l) occasional Sex Assigned at Date Recorded Not on file documented as of this encounter Progress Notes Enoc Blanca DC - 05/06/2014 9:24 AM CST Subjective Keara Cuellar is 43 yr female here for Chief Complaint Patient presents with ??? NECK PAIN ??? BACK PAIN Onset: Insidious onset of low back, mid back and neck pain. Flare-up of pain last Monday 08/28 Review of systems: Denies numbness, tingling, [...] REHABILITATE THE THORACIC REGIONS. Enoc Blanca DC STRETCHER documented in this encounter Plan of Treatment Not on filedocumented as of this encounter Visit Diagnoses Diagnosis Nonallopathic lesion of sacral region, n ot elsewhere classified - Primary Nonallopathic lesion of thoracic region, not elsewhere classified Nonallopathic lesion of cervical region, not elsewhere classified Spasm of muscle documented in this encounter Care Teams School Counselor Relationship Specialty Start Date End Date Padmini Park PA-C PCP - General Family Practice 04/05/12 01/19/16 documented as of this encounter
--- OUTSIDE RECORDS SUMMARY | 2022-03-07 11:23 | XMS_ITS | Encounter Summary ---
:1970 Author Organization [employer] Address [address] [place] [address] Care Team Providers Name Role Phone Padmini Park PA-C Primary Care Provider Reason for Visit Reason Comments NECK PAIN BACK PAIN Encounter Details Date Type Department Care Team Description 06/10/2014 Office Visit [facility] [place], Nonallopathic lesion of sacr al region, not elsewhere classified (Primary Dx); [address] [place]az[place] Nonallopathic lesion of thor acic region, not elsewhere classified; [place] [phone] Nonallopathic lesion of cerv ical region, not elsewhere classified; [phone] Spasm of muscle Social History Tobacco Use Types Packs/Day Years Used Date Smoking Tobacco: Never Smokeless Tobacco: Never Alcohol Use Standard Drinks/Week Comments Yes 0 (1 standard drink = 0.6 oz pure alcoho l) occasional Sex Assigned at Date Recorded Not on file documented as of this encounter Progress Notes Enoc Blanca DC - 06/10/2014 8:54 AM CST Subjective Keara Cuellar is 43 yr female here for Chief Complaint Patient presents with ??? NECK PAIN ??? BACK PAIN Onset: Insidious onset of low back, mid back, neck pain and headaches. Flare-up of pain last Monday 08/28 Review [...] REHABILITATE THE TH[facility]ACIC REGIONS. Enoc Blanca DC TYPE OPERATOR documented in this encounter Plan of Treatment Not on filedocumented as of this encounter Visit Diagnoses Diagnosis Nonallopathic lesion of sacral region, n ot elsewhere classified - Primary Nonallopathic lesion of thoracic region, not elsewhere classified Nonallopathic lesion of cervical region, not elsewhere classified Spasm of muscle documented in this encounter Care Teams Embedded Systems Developer Relationship Specialty Start Date End Date Padmini Park PA-C PCP - General Family Practice 04/05/12 01/19/16 documented as of this encounter
--- OUTSIDE RECORDS SUMMARY | 2022-03-07 11:23 | XMS_ITS | Encounter Summary ---
:1970 Author Organization [employer] Address [address] [place] [address] Care Team Providers Name Role Phone Padmini Park PA-C Primary Care Provider Reason for Visit Reason Comments NECK PAIN BACK PAIN BACK PAIN, LOW Encounter Details Date Type Department Care Team Description 09/21/2015 Office Visit [facility] [place] Cervical (neck) region somat ic dysfunction (Primary Dx); [address] [place] Nonallopathic lesion of thor acic region; [place] [phone] Somatic dysfunction of sacra l region; [phone] Cervicalgia; Spasm of muscle ; Headache(784.0) Social History Tobacco Use Types Packs/Day Years Used Date Smoking Tobacco: Never Smokeless Tobacco: Never Alcohol Use Standard Drinks/Week Comments Yes 0 (1 standard drink = 0.6 oz pure alcoho l) occasional Sex Assigned at Date Recorded Not on file documented as of this encounter Progress Notes Enoc Blanca DC - 09/21/2015 10:35 AM CDT Subjective Keara Cuellar is 43 yr female here for Chief Complaint Patient presents with ??? NECK PAIN ??? BACK PAIN ??? BACK PAIN, LOW Onset of neck pain with headaches, mid back and low back pain that started yesterday.. Improvement 06/30 Review of systems: Denies numbness, tingling, [...] the sacroiliac, T9-T10, C2-C3 regions. Assessment: 1. Cervical (neck) region somatic dysfunction 2. Nonallopathic lesion of thoracic region 3. Somatic dysfunction of sacral region 4. Cervicalgia 5. Spasm of muscle 6. Headache(784.0) Plan: Diagnostic plan: No further testing/evaluation at [...] as of this encounter Visit Diagnoses Diagnosis Cervical (neck) region somatic dysfuncti on - Primary Nonallopathic lesion of cervical region, not elsewhere classified Nonallopathic lesion of thoracic region Nonallopathic lesion of thoracic region, not elsewhere classified Somatic dysfunction of sacral region Nonallopathic lesion of sacral region, n ot elsewhere classified Cervicalgia Spasm of muscle Headache(784.0) Headache documented in this encounter Care Teams Assistant Plant Control Operator Relationship Specialty Start Date End Date Padmini Park PA-C PCP - General Family Practice 04/05/12 01/19/16 documented as of this encounter
--- OUTSIDE RECORDS SUMMARY | 2022-03-07 11:23 | XMS_ITS | Encounter Summary ---
:1970 Author Organization [employer] Address [address] [place] [address] Care Team Providers Name Role Phone Padmini Park PA-C Primary Care Provider Encounter Details Date Type Department Care Team Description 01/13/2015 Lab Visit [facility] Annual physical exam [address] [place], [place] [id number] Social History Tobacco Use Types Packs/Day Years [...] Name Priority Date/Time Associated Diagnosis Comme nts GLUCOSE Routine 01/13/2015 12:09 PM Annual physical exam Results for this CDT procedure are i n the results section. LIPID PANEL AND Routine 01/13/2015 12:09 PM Annual physical ex am Results for this DIRECT LDL(IF CDT procedure are in NEEDED) the results section. documented in this encounter Results GLUCOSE (01/13/2015 12:09 PM CDT) P athologist Signature Lab Glucose 90 60 - 100 HP CONVERSION mg/dL Specimen Anatomical Collection Method Collection Time Receive d Time (Source) Location / / Volume Laterality 01/13/2015 12:09 01/13/2015 2:18 PM CDT PM CDT Narrative HP CONVERSION - 01/13/2015 2:38 PM CDT Performed at [facility] [address] [place] [address] Chirag Metzger PA-C LAB_1 Performing Organization Address [facility] Phon e Number HP CONVERSION Lipid Panel and Direct LDL(If Needed) (01/13/2015 12:09 PM CDT) [facility] gist Method Time Signature Cholesterol 163 0 - 200 HP CONVERSION mg/dL Triglycerides 61 0 - 149 HP CONVERSION mg/dL HDL Cholesterol 60 >39 mg/dL HP CONVERSION Cholesterol/HDL 2.7 HP CONVERSION Ratio Screen LDL Calculated 91 19 - 130 HP CONVERSION mg/dL Length Of Fast ? HP CONVERSION Specimen Anatomical Collection Method Collection Time Receive d Time (Source) Location / / Volume Laterality 01/13/2015 12:09 01/13/2015 2:18 PM CDT PM CDT Narrative HP CONVERSION - 01/13/2015 2:38 PM CDT Performed at [facility] [address] [place] [address] Chirag Metzger PA-C LAB_1 Performing Organization Address [facility] Phon e Number HP CONVERSION documented in this encounter Visit Diagnoses Diagnosis Annual physical exam Routine general medical examination at a health care facility documented in this encounter Care Teams Slotter Operator Relationship Specialty Start Date End Date Padmini Park PA-C PCP - General Family Practice 04/05/12 01/19/16 documented as of this encounter
--- OUTSIDE RECORDS SUMMARY | 2022-03-07 11:23 | XMS_ITS | Encounter Summary ---
:1970 Author Organization [employer] Address [address] [place] [address] Care Team Providers Name Role Phone Padmini Park PA-C Primary Care Provider Reason for Visit Reason Comments CONSULT PELVIC PAIN Encounter Details Date Type Department Care Team Description 11/05/2014 Initial Consult [facility] Barb Alvarez R ectal pain (Primary Services-INDUSTRIAL NURSE Dx) [address], [address] [place] [address] [phone] Social History Tobacco Use Types Packs/Day Years Used Date Smoking Tobacco: Never Smokeless Tobacco: Never Alcohol Use Standard Drinks/Week Comments Yes 0 (1 standard drink = 0.6 oz pure alcoho l) occasional Sex Assigned at Date Recorded Not on file documented as of this encounter Last Filed Vital Signs Vital Sign Reading Time Taken Comments Blood Pressure 145/81 11/05/2014 2:11 PM CDT Pulse 70 11/05/2014 2:11 PM CDT Temperature - - Respiratory Rate - - Oxygen Saturation - - Inhaled Oxygen Concentration - - Weight 70.3 kg (155 lb) 11/05/2014 2:11 PM CDT Height - - Body Mass Index 29.77 11/26/2013 3:49 PM CDT documented in this encounter Progress Notes Barb Alvarez MD - 11/05/2014 5:08 PM CDT Progress Notes signed by Barb Alvarez MD at 11/06/14 1201 Author: Barb Alvarez MD Service: (none) Author Type: Physician Filed: 11/06/14 1201 Note Time: 11/06/14 1101 Status: Signed Battery Technician: Barb Alvarez MD (Physician) NAME: KEARA CUELLAR MR#: [id number] CSN: [id number] AUTHENTICATING CLINICIAN: Barb Alvarez MD CONFIRM #: [id number] LOC: 512 CLINIC PROGRESS NOTE DATE OF VISIT: 11/05/2014 : 1970 HPI: Ms. Cuellar is a 44-year-old, para 2-0-0-2, who presents to clinic today to follow up on her recent Emergency Room visit. She was seen in the Emergency Room at [facility] on 11/01/2014 for rectal pain. She had a normal exam at that time and had a pelvic ultrasound done which showed normal ovaries bilaterally. She has a history of having a laparoscopic supracervical hysterectomy around 2004for uterine fibroids. That surgery was done in [place]. Over the past 3 years, she has had intermittent throbbing pain in her rectum. She was seen at [facility] for this pain in 2011. At that time, she had an endorectal ultrasound done which showed a hypoechoic lesion in the rectovaginal septum, which appeared cystic and benign. At that time, her pain was intermittent. However over the past several months, the pain has been worsening and occurring on a more frequent basis. She was seen again in [facility] on 10/08/2014, and there was no palpable lesion noted. For that reason, an MRI of the pelvis was ordered, which was done on 10/19/2014. This was normal with the exception of bilateral functional cysts on the ovaries, with the largest measuring 2.3 cm. Again, as noted above, the ovaries were re-evaluated on ultrasound on 11/01/2014 at [facility], and were normal with no cystic lesions noted. The patient describes her pain as sharp,throbbing pain in the rectum and when the pain occurs she feels as if she has to pass gas but is unable to. She has had no rectal bleeding and no constipation. She has not been sexually active for 13 years. She has 2 children who were both delivered by section. When discharged from the Emergency Room, she was told to follow up both with [facility] as well as Gynecology to further evaluate for any etiology of her pain. PHYSICAL EXAM: Weight 155 pounds. Blood pressure 145/81, pulse 70. GENERAL: She is pleasant and well-appearing. PELVIC: On exam, she has normal external genitalia. On speculum exam, the vagina and cervix appear normal with no visible lesions. A rectovaginal exam was then and there were no masses palpated betweenthe vagina and the rectum. The patient did not have pain or discomfort with my exam. ASSESSMENT: Rectal pain of uncertain etiology. PLAN: I recommended that she follow up with [facility] for further evaluation and explained that I did not think there was a gynecologic reason for her pain. Total time 30 minutes. Counseling time 20 minutes. CJK:MEDQ C: CONFIRM #: [id number] documented in this encounter Plan of Treatment Not on filedocumented as of this encounter Visit Diagnoses Diagnosis Rectal pain - Primary Anal or rectal pain documented in this encounter Care Teams Linter Drier Operator Relationship Specialty Start Date End Date Padmini Park PA-C PCP - General Family Practice 04/05/12 01/19/16 documented as of this encounter
--- OUTSIDE RECORDS SUMMARY | 2022-03-07 11:23 | XMS_ITS | Encounter Summary ---
:1970 Author Organization [employer] Address [address] [place] [address] Care Team Providers Name Role Phone Padmini Park PA-C Primary Care Provider Reason for Visit Reason Comments Vaginal Itching Encounter Details Date Type Department Care Team Description 07/21/2015 Office Visit Chirag Chopra, Vaginal itching [address] PA-C (Primary Dx) CHAS[facility] Sapp [id number] [address] [phone] [facility] SAPP [phone] Social History Tobacco Use Types Packs/Day Years Used Date Smoking Tobacco: Never Smokeless Tobacco: Never Alcohol Use Standard Drinks/Week Comments Yes 0 (1 standard drink = 0.6 oz pure alcoho l) occasional Sex Assigned at Date Recorded Not on file documented as of this encounter Last Filed Vital Signs Vital Sign Reading Time Taken Comments Blood Pressure 118/74 07/21/2015 10:45 AM WASTE MANAGEMENT RECYCLING TECHNICIAN Pulse - - Temperature - - Respiratory Rate - - Oxygen Saturation - - Inhaled Oxygen Concentration - - Weight 74.8 kg (165 lb) 07/21/2015 10:45 AM WASTE MANAGEMENT RECYCLING TECHNICIAN Height 157.5 cm (5' 2) 07/21/2015 10:45 AM WASTE MANAGEMENT RECYCLING TECHNICIAN Body Mass Index 30.18 07/21/2015 10:45 AM WASTE MANAGEMENT RECYCLING TECHNICIAN documented in this encounter Progress Notes Chirag Metzger PA-C - 07/21/2015 7:35 PM CST SUBJECTIVE: This 45 y.o. female presents today with the following concern(s): Vaginal itching Vaginal itching and irritation. No noticeable change in discharge. No urinary symptoms. No lesions or bumps. No fevers. Recently . No treatments tried. Adverse Drug Reactions: has No Known Allergies. Medications: has a current medication list which includes the following prescription(s): ergocalciferol, hydrochlorothiazide, ibuprofen, ketoconazole, latanoprost, methocarbamol, norethindrone-ethinyl estradiol, phentermine, and rizatriptan. Tobacco History: reports that she has never smoked. She has never used smokeless tobacco. Alcohol History: reports that she drinks about 1.8 oz of alcohol per week. Marital History: OBJECTIVE: Vital Signs: BP 118/74 mmHg Ht 5' 2 (1.575 m) Wt 165 lb (74.844 kg) BMI 30.17 kg/m2 General appearance: alert, cooperative, no distress, appears stated age, Abdomen: soft, non-tender; bowel sounds normal; no masses, no organomegaly and Pelvic: external genitalia normal, no cervical motion tenderness, vaginal and cervical mucosa erythematous. Minimal thick, white discharge noted. ASSESSMENT/PLAN: Keara was seen today for vaginal itching. Diagnoses and associated orders for this visit: Vaginal itching - Vaginosis DNA Probe I will let her know results as soon as available. In the interim, may use Vagisil or hydrocortisone cream as needed for itch/irritation. The patient was discharged ambulatory and in stable condition. E MANAGEMENT RECYCLING TECHNICIAN documented in this encounter Plan of Treatment Not on filedocumented as of this encounter Procedures Procedure Name Priority Date/Time Associated Diagnosis Comme nts VAGINITIS PANEL, Routine 07/21/2015 10:58 AM Vaginal itching R esults for this DNA PROBE WASTE MANAGEMENT RECYCLING TECHNICIAN procedure are i n the results section. documented in this encounter Results (ABNORMAL) VAGINITIS PANEL, DNA PROBE (07/21/2015 10:58 AM WASTE MANAGEMENT RECYCLING TECHNICIAN) [facility] Method Time Signature Gardnerella Not Detected Not HP CONVERSION vaginalis Detected Amy species Detected (A) Not HP CONVERSI ON Detected Trichomonas Not Detected Not HP CONVERSION vaginalis Detected Specimen Anatomical Collection Method Collection Time Receive d Time (Source) Location / / Volume Laterality 07/21/2015 10:58 07/21/2015 2:24 AM WASTE MANAGEMENT RECYCLING TECHNICIAN PM WASTE MANAGEMENT RECYCLING TECHNICIAN Narrative HP CONVERSION - 07/21/2015 4:07 PM WASTE MANAGEMENT RECYCLING TECHNICIAN Performed at [facility], [address] [place] [address] CLIA number [id number] Chirag Metzger PA-C LAB_1 Performing Organization Address City/State/[facility] Code Phon e Number HP CONVERSION documented in this encounter Visit Diagnoses Diagnosis Vaginal itching - Primary Pruritus of genital organs documented in this encounter Care Teams Enterprise Account Manager Relationship Specialty Start Date End Date Padmini Park PA-C PCP - General Family Practice 04/05/12 01/19/16 documented as of this encounter
--- OUTSIDE RECORDS SUMMARY | 2022-03-07 11:23 | XMS_ITS | Encounter Summary ---
:1970 Author Organization [employer] Address [address] [place] [address] Care Team Providers Name Role Phone Padmini Park PA-C Primary Care Provider Reason for Visit Reason Comments Appt. Needed Encounter Details Date Type Department Care Team Description 11/02/2014 Telephone [facility] Eulalia Alvarez MD Appt. Needed Services-[facility] [address] [address] [address] [place] [address] [phone] Social History Tobacco Use Types Packs/Day Years Used Date Smoking Tobacco: Never Smokeless Tobacco: Never Alcohol Use Standard Drinks/Week Comments Yes 0 (1 standard drink = 0.6 oz pure alcoho l) occasional Sex Assigned at Date Recorded Not on file documented as of this encounter Nursing Notes Liss Cho RN - 11/02/2014 12:55 PM CDT Pt calling to make a f/u appt after she was evaluated in the ER on 11/01 for lower pelvic pain and was advised to f/u with CAFE OPERATOR. Appt scheduled documented in this encounter Plan of Treatment Not on filedocumented as of this encounter Visit Diagnoses Not on filedocumented in this encounter Care Teams Industrial Relations Representative Relationship Specialty Start Date End Date Padmini Park PA-C PCP - General Family Practice 04/05/12 01/19/16 documented as of this encounter
--- OUTSIDE RECORDS SUMMARY | 2022-03-07 11:23 | XMS_ITS | Encounter Summary ---
:1970 Author Organization [employer] Address [address] [place] [address] Care Team Providers Name Role Phone Padmini Park PA-C Primary Care Provider Reason for Visit Reason Comments NECK PAIN BACK PAIN BACK PAIN, LOW Encounter Details Date Type Department Care Team Description 08/05/2014 Office Visit [facility], Nonallopathic lesion of sacr al region, not elsewhere classified (Primary Dx); [address] [place] Nonallopathic lesion of thor acic region, not elsewhere classified; [place] [phone] Nonallopathic lesion of cerv ical region, not elsewhere classified; [phone] Spasm of muscle Social History Tobacco Use Types Packs/Day Years Used Date Smoking Tobacco: Never Smokeless Tobacco: Never Alcohol Use Standard Drinks/Week Comments Yes 0 (1 standard drink = 0.6 oz pure alcoho l) occasional Sex Assigned at Date Recorded Not on file documented as of this encounter Progress Notes nEoc Blanca DC - 08/05/2014 1:06 PM CDT Marla Cuellar is 43 yr female here for Chief Complaint Patient presents with ??? NECK PAIN ??? BACK PAIN ??? BACK PAIN, LOW Onset: Insidious onset of low back, mid back, neck pain and headaches. Worse 12/28 Review of systems: Denies numbness, tingling, or [...] REHABILITATE THE THORACIC REGIONS. Enoc Blanca DC documented in this encounter Plan of Treatment Not on filedocumented as of this encounter Visit Diagnoses Diagnosis Nonallopathic lesion of sacral region, n ot elsewhere classified - Primary Nonallopathic lesion of thoracic region, not elsewhere classified Nonallopathic lesion of cervical region, not elsewhere classified Spasm of muscle documented in this encounter Care Teams Hockey Instructor Relationship Specialty Start Date End Date Padmini Park PA-C PCP - General Family Practice 04/05/12 01/19/16 documented as of this encounter
--- OUTSIDE RECORDS SUMMARY | 2022-03-07 11:23 | XMS_ITS | Encounter Summary ---
:1970 Author Organization [email or web address] Address [address] [place] [address] Care Team Providers Name Role Phone Padmini Park PA-C Primary Care Provider Reason for Visit Reason Comments NECK PAIN BACK PAIN BACK PAIN, LOW HEADACHE Encounter Details Date Type Department Care Team Description 09/10/2015 Office Visit [facility], Cervical (neck) region somat ic dysfunction (Primary Dx); [address] En[place]az[place] Nonallopathic lesion of thor acic region; [place] [phone] Somatic dysfunction of sacra l region; [phone] Cervicalgia; Spasm of muscle ; Headache(784.0) Social History Tobacco Use Types Packs/Day Years Used Date Smoking Tobacco: Never Smokeless Tobacco: Never Alcohol Use Standard Drinks/Week Comments Yes 0 (1 standard drink = 0.6 oz pure alcoho l) occasional Sex Assigned at Date Recorded Not on file documented as of this encounter Progress Notes Enoc Blanca DC - 09/10/2015 10:35 AM CDT Subjective Keara Cuellar is 43 yr female here for Chief Complaint Patient presents with ??? NECK PAIN ??? BACK PAIN ??? BACK PAIN, LOW ??? HEADACHE Onset of neck pain with headaches, mid back and low back pain that started yesterday.. Same.4/10 Review of systems: Denies numbness, tingling, or [...] Headache documented in this encounter Care Teams Supervisor Building Maintenance Relationship Specialty Start Date End Date Padmini Park PA-C PCP - General Family Practice 04/05/12 01/19/16 documented as of this encounter
--- OUTSIDE RECORDS SUMMARY | 2022-03-07 11:23 | XMS_ITS | Encounter Summary ---
:1970 Author Organization [employer] Address [address] [place] [address] Care Team Providers Name Role Phone Padmini Park PA-C Primary Care Provider Reason for Visit Reason Comments Workers Compensation Encounter Details Date Type Department Care Team Description 08/12/2014 Office Visit [facility], Sprain of sacrum, initial en counter (Primary Dx); [address] [place]az[place] Sprain of thoracic region, i nitial encounter; [place] [phone] Sprain of neck, initial enco unter; [phone] Spasm of muscle Social History Tobacco Use Types Packs/Day Years Used Date Smoking Tobacco: Never Smokeless Tobacco: Never Alcohol Use Standard Drinks/Week Comments Yes 0 (1 standard drink = 0.6 oz pure alcoho l) occasional Sex Assigned at Date Recorded Not on file documented as of this encounter Progress Notes Enoc Blanca DC - 08/12/2014 10:28 AM CDT Subjective Keara Cuellar is 43 yr female here for Chief Complaint Patient presents with ??? Workers Compensation Onset of right low back, mid back, neck pain with headaches from slipping on ice on 08/10/2014 whileat work. Re-injruy to her condition. 11/27, but is on medication Review of systems: Denies numbness, tingling, or [...] the sacroiliac, T9-T10, C2-C3 regions. Assessment: 1. Sprain of sacrum, initial encounter 2. Sprain of thoracic region, initial encounter 3. Sprain of neck, initial encounter 4. Spasm of muscle Plan: Diagnostic plan: No further testing/evaluation at this time. Therapeutic plan: Patient consented to care. Spinal manipulative therapy (SMT) was applied to the sacroiliac, thoracic and cervical regions. Trigger point therapy was applied to the soft tissue in the lumbar, sacroiliac and hip regions for 8-9 minutes. Patient tolerated treatment well. Goals: Resolve current complaints. Treatment plan: 8-12 visits over the next 4-6 weeks Visit 1 of 12 Educational plan: PIRIFORMIS EXERCISES: 3 REPETITIONS @ [...] as of this encounter Visit Diagnoses Diagnosis Sprain of sacrum, initial encounter - Pr imary Sprain of thoracic region, initial encou nter Sprain of neck, initial encounter Spasm of muscle documented in this encounter Care Teams Landscape Architect And Planner Relationship Specialty Start Date End Date Padmini Park PA-C PCP - General Family Practice 04/05/12 01/19/16 documented as of this encounter
--- OUTSIDE RECORDS SUMMARY | 2022-03-07 11:23 | XMS_ITS | Encounter Summary ---
:1970 Author Organization [employer] Address [address] [place] [address] Care Team Providers Name Role Phone Padmini Park PA-C Primary Care Provider Reason for Visit Reason Comments NECK PAIN BACK PAIN BACK PAIN, LOW Encounter Details Date Type Department Care Team Description 12/01/2014 Office Visit [facility], Nonallopathic lesion of cerv ical region, not elsewhere classified (Primary Dx); [address] Enoc Lazaro [place] Nonallopathic lesion of thor acic region, not elsewhere classified; [place] [id number] Nonallopathic lesion of sacr al region, not elsewhere classified; [phone] Cervicalgia; Spasm of muscle Social History Tobacco Use Types Packs/Day Years Used Date Smoking Tobacco: Never Smokeless Tobacco: Never Alcohol Use Standard Drinks/Week Comments Yes 0 (1 standard drink = 0.6 oz pure alcoho l) occasional Sex Assigned at Date Recorded Not on file documented as of this encounter Progress Notes Enoc Blanca DC - 12/01/2014 8:04 AM CDT Marla Cuellar is 43 yr female here for Chief Complaint Patient presents with ??? NECK PAIN ??? BACK PAIN ??? BACK PAIN, LOW Onset of right low back, mid back, neck pain with headaches. Flare-up of pain. -09/27 Review of systems: Denies numbness, tingling, or [...] muscle documented in this encounter Care Teams Residential Mortgage Manager Relationship Specialty Start Date End Date Padmini Park PA-C PCP - General Family Practice 04/05/12 01/19/16 documented as of this encounter
--- OUTSIDE RECORDS SUMMARY | 2022-03-07 11:23 | XMS_ITS | Encounter Summary ---
:1970 Author Organization [employer] Address [address] [place] [address] Care Team Providers Name Role Phone Padmini Park PA-C Primary Care Provider Reason for Visit Reason Comments NECK PAIN BACK PAIN BACK PAIN, LOW Encounter Details Date Type Department Care Team Description 12/18/2014 Office Visit [facility], Nonallopathic lesion of cerv ical region, not elsewhere classified (Primary Dx); [address] En[place] Laz[place] Nonallopathic lesion of thor acic region, not elsewhere classified; [place] [address] Nonallopathic lesion of sacr al region, not elsewhere classified; [phone] Cervicalgia; Spasm of muscle Social History Tobacco Use Types Packs/Day Years Used Date Smoking Tobacco: Never Smokeless Tobacco: Never Alcohol Use Standard Drinks/Week Comments Yes 0 (1 standard drink = 0.6 oz pure alcoho l) occasional Sex Assigned at Date Recorded Not on file documented as of this encounter Progress Notes Enoc Blanca DC - 12/18/2014 8:07 AM CDT Marla Cuellar is 43 yr female here for Chief Complaint Patient presents with ??? NECK PAIN ??? BACK PAIN ??? BACK PAIN, LOW Onset of left low back, mid back, neck pain with headaches. Same 6/10, worse at night Review of systems: [...] muscle documented in this encounter Care Teams Signaler Relationship Specialty Start Date End Date Padmini Park PA-C PCP - General Family Practice 04/05/12 01/19/16 documented as of this encounter
--- OUTSIDE RECORDS SUMMARY | 2022-03-07 11:23 | XMS_ITS | Encounter Summary ---
:1970 Author Organization [employer] Address [address] [place] [address] Care Team Providers Name Role Phone Padmini Park PA-C Primary Care Provider Encounter Details Date Type Department Care Team Description 01/13/2015 Imaging [facility] Breast cancer screening [address] [place] [address] Social History Tobacco Use Types [...] Associated Diagnosis Comme nts MM MAMMOGRAM Routine 01/13/2015 1:16 PM Breast cancer Results for this SCREENING BILAT W CDT screening procedure are in CAD the results section. documented in this encounter Results MM Mammogram Screening Bilat W CAD (01/13/2015 1:16 PM CDT) Anatomical Region Laterality Modality Breast Bilateral Mammography Specimen (Source) Anatomical Location Collection Method / Collectio n Time Received Time / Laterality Volume Impressions 01/13/2015 1:36 PM CDT : BI-RADS 1 Negative (overall) Follow Up Mammogram in 1 year - Bilatera l The results and recommendations of this examination will be communicated to the patient by the [facility] and we will attempt to schedule any recommended imaging follow up with the patient. Narrative 01/13/2015 1:36 PM CDT Compared to: 01/07/2014 MM Mammogram Screening Bilateral W Cad, 09/26/2012 MM Mammogram Screening Bilateral W Cad, 08/22/2011 Mammogram Bilateral Breast Findings: Bilateral digital screening mammogram wa s performed. There are scattered areas of fibroglandular density in the b reasts. No significant mass, calcifications or o ther abnormalities are seen in either breast. Procedure Note Yasmine Coon N - 01/19/2016 Compared to: 01/07/2014 MM Mammogram Scr eening Bilateral W Cad, 09/26/2012 MM Mammogram Screening Bilateral W Cad, 08/22/2011 Mammogram Bilateral Breast Findings: Bilateral digital screening mammogram wa s performed. There are scattered areas of fibroglandular density in the b reasts. No significant mass, calcifications or o ther abnormalities are seen in either breast. IMPRESSION : BI-RADS 1 Negative (overall) Follow Up Mammogram in 1 year - Yeny calhoun The results and recommendations of this examination will be communicated to the patient by the [facility] and we will attempt to schedule any recommended imaging follow up with the patient. Chirag Metzger PA-C RAD [facility] documented in this encounter Visit Diagnoses Diagnosis Breast cancer screening Breast screening, unspecified documented in this encounter Care Teams Computer Network And Systems Engineer Relationship Specialty Start Date End Date Padmini Park PA-C PCP - General Family Practice 04/05/12 01/19/16 documented as of this encounter
--- OUTSIDE RECORDS SUMMARY | 2022-03-07 11:23 | XMS_ITS | Encounter Summary ---
:1970 Author Organization [employer] Address [address] [place] [address] Care Team Providers Name Role Phone Padmini Park PA-C Primary Care Provider Reason for Visit Reason Comments NECK PAIN BACK PAIN Encounter Details Date Type Department Care Team Description 07/01/2014 Office Visit [facility], Nonallopathic lesion of sacr al region, not elsewhere classified (Primary Dx); [address] [place]az[place] Nonallopathic lesion of thor acic region, not elsewhere classified; [place] [phone] Nonallopathic lesion of cerv ical region, not elsewhere classified; [phone] Spasm of muscle Social History Tobacco Use Types Packs/Day Years Used Date Smoking Tobacco: Never Smokeless Tobacco: Never Alcohol Use Standard Drinks/Week Comments Yes 0 (1 standard drink = 0.6 oz pure alcoho l) occasional Sex Assigned at Date Recorded Not on file documented as of this encounter Progress Notes Enoc Blanca DC - 07/01/2014 9:59 AM CST Subjective Keara Cuellar is 43 yr female here for Chief Complaint Patient presents with ??? NECK PAIN ??? BACK PAIN Onset: Insidious onset of low back, mid back, neck pain and headaches. Improvement 2-3/ Review of systems: Denies numbness, tingling, or [...] REHABILITATE THE THORACIC REGIONS. Enoc Blanca DC LIEUTENANT documented in this encounter Plan of Treatment Not on filedocumented as of this encounter Visit Diagnoses Diagnosis Nonallopathic lesion of sacral region, n ot elsewhere classified - Primary Nonallopathic lesion of thoracic region, not elsewhere classified Nonallopathic lesion of cervical region, not elsewhere classified Spasm of muscle documented in this encounter Care Teams Dry Cleaning Teacher Relationship Specialty Start Date End Date Padmini Park PA-C PCP - General Family Practice 04/05/12 01/19/16 documented as of this encounter
--- OUTSIDE RECORDS SUMMARY | 2022-03-07 11:23 | XMS_ITS | Encounter Summary ---
:1970 Author Organization [employer] Address [address] [place] [address] Care Team Providers Name Role Phone Padmini Park PA-C Primary Care Provider Reason for Visit Reason Comments NECK PAIN BACK PAIN BACK PAIN, LOW Encounter Details Date Type Department Care Team Description 07/30/2015 Office Visit [facility] Cervical (neck) region somat ic dysfunction (Primary Dx); [address] [place] Nonallopathic lesion of thor acic region; [place] [id number] Somatic dysfunction of sacra l region; [phone] Cervicalgia; Spasm of muscle Social History Tobacco Use Types Packs/Day Years Used Date Smoking Tobacco: Never Smokeless Tobacco: Never Alcohol Use Standard Drinks/Week Comments Yes 0 (1 standard drink = 0.6 oz pure alcoho l) occasional Sex Assigned at Date Recorded Not on file documented as of this encounter Progress Notes Enoc Blanca DC - 07/30/2015 2:49 PM CST Marla Cuellar is 43 yr female here for Chief Complaint Patient presents with ??? NECK PAIN ??? BACK PAIN ??? BACK PAIN, LOW Onset of left low back, mid back, neck pain with headaches. Flare-up of pain.08/28 Review of systems: Denies [...] 3 TIMES PER DAY. Enoc Blanca DC T TECHNICIAN documented in this encounter Plan of [...] muscle documented in this encounter Care Teams Wet Suit Gluer Relationship Specialty Start Date End Date Padmini Park PA-C PCP - General Family Practice 04/05/12 01/19/16 documented as of this encounter
--- OUTSIDE RECORDS SUMMARY | 2022-03-07 11:23 | XMS_ITS | Encounter Summary ---
:1970 Author Organization [employer] Address [address] [place] [address] Care Team Providers Name Role Phone Padmini Park PA-C Primary Care Provider Reason for Visit Reason Comments Annual Exam Encounter Details Date Type Department Care Team Description 01/13/2015 Office Visit Chirag Chopra, Annual physical exam (Primar y Dx); [address] Evans PA-C Rectal pain, chronic; [place] [id number] [address] Chronic pelvic pain in female; [phone] [place] [id number] Migraine without status migrainosus, not intractable, unspecified migraine type; [phone] Screening for m alignant neoplasm of the cervix (Work) Social History Tobacco Use Types Packs/Day Years Used Date Smoking Tobacco: Never Smokeless Tobacco: Never Alcohol Use Standard Drinks/Week Comments Yes 0 (1 standard drink = 0.6 oz pure alcoho l) occasional Sex Assigned at Date Recorded Not on file documented as of this encounter Last Filed Vital Signs Vital Sign Reading Time Taken Comments Blood Pressure 118/72 01/13/2015 11:33 AM CDT Pulse - - Temperature - - Respiratory Rate - - Oxygen Saturation - - Inhaled Oxygen Concentration - - Weight 69.4 kg (153 lb) 01/13/2015 11:33 AM CDT Height 157.5 cm (5' 2) 01/13/2015 11:33 AM CDT Body Mass Index 27.98 01/13/2015 11:33 AM CDT documented in this encounter Progress Notes Radha Rojas RN - 02/09/2015 9:12 AM CDT Quick Note: Dear Keara, I am writing to let you know that your PAP and HPV result is negative. This means that your test result was normal. No cancer or precancerous cells were seen. Based on current cervical cancer screening recommendations, your next PAP and HPV should be in 3 years. Continue to schedule your annual preventive exams for your overall health. If you have questions about cervical cancer screening or your test results, call Cervical Cancer Screening and Management Team [phone] Sincerely, Radha Rojas RN on behalf of Dr. Emmie Holcomb, Grocery Store [employer] [facility] [facility] Cervical Cancer Screening and Management Chirag Metzger PA-C - 01/15/2015 9:58 AM CDT Preventive Exam HISTORY OF PRESENT ILLNESS: 44 y/o patient presents for a routine preventive physical exam. Chronic rectal and pelvic pain Patient Active Problem List Diagnosis ??? Syncope, psychogenic ??? Headache, migraine ??? Migraine, chronic, without aura, intractable, with status migrainosus (ACG) ??? Obese SUBJECTIVE: The patient voices the following concerns: Spent the last 24 hours at [facility] for acute on chronic rectal and pelvic pain. She required Dilaudid for pain control. She is feeling extremely tiredthis morning, and pain has started to return. She saw both colorectal surgery and public affairs director in consult during her hospitalization. Colorectal surgery felt there is no colorectal pathology contributing to her pain. public affairs director is theorizing that she might have endometriosis. She had a total hysterectomy with ovary preservation years ago at a previous clinic, and one thing she is to do in follow up is contact that clinic for her surgical and pathology records. Wondering if any endometriosis tissue was found during surgery or on pathology. They also recommended to her that she trial ovarian suppression with continuous OCPs. She is willing to trial that, and requesting a prescription today. She plans to schedule a follow-up with Dr. Alvarez in public affairs director, as well. She would like a refill of her pain medication today. Current contraception: s/p hysterectomy Medication refills requested: Requested Prescriptions Pending Prescriptions Disp Refills ??? ibuprofen (MOTRIN) 800 mg tablet 30 tablet 1 Sig: Take 1 tablet by mouth 3 times daily. ??? methocarbamol (ROBAXIN) 500 mg tablet 30 tablet 3 Sig: Take 1 tablet by mouth 4 times daily as needed for Muscle spasms. Do not drive within 8 hours of taking. ??? ondansetron (ZOFRAN-ODT) 4 mg disintegrating tablet 30 tablet 1 Sig: Take 1 tablet by mouth every 8 hours as needed for Nausea or Vomiting. ??? oxyCODONE-acetaminophen (PERCOCET) 5-325 mg per tablet 30 tablet 0 Sig: Take 1 tablet by mouth every 4 hours as needed for Pain. ??? prochlorperazine (COMPAZINE) 10 mg tablet 30 tablet 1 Sig: Take 1 tablet by mouth every 6 hours as needed for Nausea or Vomiting. . No problem-specific assessment & plan notes found for this encounter. Past Medical/Surgical History/Family History: Reviewed and updated today under History tab in Electronic Medical Record. has a current medication list which includes the following prescription(s): ergocalciferol, ibuprofen, ketoconazole, methocarbamol, ondansetron, oxycodone- acetaminophen, phentermine, prochlorperazine, rizatriptan, and tramadol. has No Known Allergies. Government Operations Consultant History: : LMP: No LMP recorded. Patient has had a hysterectomy. Sexual History: reports that she does not engage in sexual activity. Last Pap Smear: Prior to hysterectomy, normal STD History: She has not been diagnosed with STDs. Social History: History Social History ??? Marital Status: Spouse Name: N/A Number of Children: 2 ??? Years of Education: N/A Occupational History ??? currently unemployed part-time Social History Main Topics ??? Smoking status: Never Smoker ??? Smokeless tobacco: Never Used ??? Alcohol Use: 1.8 oz/week 3 Glasses of wine per week ??? Drug Use: No ??? Sexual Activity: No Other Topics Concern ??? None Social History Narrative Preventive Health Assessment: She does not exercise regularly. She does perform monthly self breast exam. Calcium intake is adequate. Pap smear: N/A Mammogram: Scheduled for this afternoon Colonoscopy: UTD Cholesterol fractionation: Due Bone density scan: N/A Immunization History Administered Date(s) Administered ??? Tdap (Adacel) 08/17/2011 OBJECTIVE: BP 118/72 mmHg Ht 5' 2 (1.575 m) Wt 153 lb (69.4 kg) BMI 27.98 kg/m2 General appearance: alert, cooperative, no distress, [...] seen today for annual exam. Diagnoses and associated orders for this visit: Annual physical exam - Cholesterol Fraction-LDLD If Trig High; Future - Glucose; Future Rectal pain, chronic - ibuprofen (MOTRIN) 800 mg tablet; Take 1 tablet by mouth 3 times daily. - methocarbamol (ROBAXIN) 500 mg tablet; Take 1 tablet by mouth 4 times daily as needed for Muscle spasms. Do not drive within 8 hours of taking. - ondansetron (ZOFRAN-ODT) 4 mg disintegrating tablet; Take 1 tablet by mouth every 8 hours as needed for Nausea or Vomiting. - oxyCODONE-acetaminophen (PERCOCET) 5-325 mg per tablet; Take 1 tablet by mouth every 4 hours as needed for Pain. - prochlorperazine (COMPAZINE) 10 mg tablet; Take 1 tablet by mouth every 6 hours as needed for Nausea or Vomiting. - norethindrone-ethinyl estradiol (LOESTRIN 06/09, ,) 1mg-20mcg per tablet; Take 1 tablet by mouth daily (every 24 hours). Take continuously for suppression of ovarian activity Chronic pelvic pain in female - ibuprofen (MOTRIN) 800 mg tablet; Take 1 tablet by mouth 3 times daily. - methocarbamol (ROBAXIN) 500 mg tablet; Take 1 tablet by mouth 4 times daily as needed for Muscle spasms. Do not drive within 8 hours of taking. - ondansetron (ZOFRAN-ODT) 4 mg disintegrating tablet; Take 1 tablet by mouth every 8 hours as needed for Nausea or Vomiting. - oxyCODONE-acetaminophen (PERCOCET) 5-325 mg per tablet; Take 1 tablet by mouth every 4 hours as needed for Pain. - prochlorperazine (COMPAZINE) 10 mg tablet; Take 1 tablet by mouth every 6 hours as needed for Nausea or Vomiting. - norethindrone-ethinyl estradiol (LOESTRIN 06/09, ,) 1mg-20mcg per tablet; Take 1 tablet by mouth daily (every 24 hours). Take continuously for suppression of ovarian activity Migraine without status migrainosus, not intractable, unspecified migraine type - rizatriptan (MAXALT) 10 mg tablet; Take 1 tablet by mouth as needed for Migraine. May repeat in 2 hours if needed Screening for malignant neoplasm of the cervix - Pap Test Order Patient Active Problem List Diagnosis ??? Syncope, psychogenic ??? Headache, migraine ??? Migraine, chronic, without aura, intractable, with status migrainosus (ACG) ??? Obese Prevention or Hormone Therapy: s/p hysterectomy Discharged ambulatory and in stable condition. documented in this encounter Miscellaneous Notes Miscellaneous - 06/29/2016 3:28 AM CSTNotes Recorded by Radha Rojas RN on 02/09/2015 at 9:12 Campbell Sarah,I am writing to let you know that your PAP and HPV result is negative. This means that your test result was normal. No cancer or precancerous cells were seen.Based on current cervical cancer screening recommendations, your next PAP and HPV should be in 3 years. Continue to schedule your annual preventive exams for your overall health.If you have questions about cervical cancer screening or your test results, callCervical Cancer Screening and Management [phone] Her, RN on behalf ofDr. Emmie Holcomb, Medical DirectorPartony Cam Cervical Cancer Screening and Management PROJECT MANAGER Miscellaneous - 06/29/2016 3:28 AM CSTNotes Recorded by Radha Rojas, MARTITA on 02/09/2015 at 9:12 AMDmarlene Sarah,I am writing to let you know that your PAP and HPV result is negative. This means that your test result was normal. No cancer or precancerous cells were seen.Based on current cervical cancer screening recommendations, your next PAP and HPV should be in 3 years. Continue to schedule your annual preventive exams for your overall health.If you have questions about cervical cancer screening or your test results, callCervical Cancer Screening and Management [phone] Her, MARTITA on behalf ofDr. Emmie Holcomb, Medical DirectorPartony Cam Cervical Cancer Screening and Management PROJECT MANAGER documented in this encounter Plan of Treatment Not on filedocumented as of this encounter Procedures Procedure Name Priority Date/Time Associated Comments Diagnosis PAP TEST ORDER Routine 01/13/2015 11:59 AM Screening for Resul ts for this CDT malignant neoplasm procedure are in of the cervix the results section. HPV WITH 16 18 Routine 01/13/2015 11:59 AM Result s for this GENOTYPING, CDT procedure are i n CERVICAL/ENDOCERVICA the res ults L section. ANATOMICAL PATH Routine 01/13/2015 11:59 AM Resul ts for this LIQUID BASED CDT procedure are i n the results section. documented in this encounter Results Pap Smear (01/13/2015 11:59 AM CDT) Specimen (Source) Anatomical Collection Method Collection Time Re ceived Time Location / / Volume Laterality 01/13/2015 11:59 AM CDT Narrative HP CONVERSION - 01/20/2015 8:39 AM CDT Performed at [facility], [address] [place] [address] FINAL GYNECOLOGICAL CYTOLOGY REPORT Pathology #: [id number] ?Date Obtained: 01/13/2015 ? Date Received: 01/14/2015 INTERPRETATION/RESULTS: Negative for Intraepithelial Lesion or M alignancy. SPECIMEN ADEQUACY: Satisfactory for Evaluation. ??Endocervi zenaida cells/transformation zone component present. Verified on 01/20/2015 ??by EMMA JAVIER (electronic signature) CLINICAL NOTES: ?Abnormal bleeding: No, LMP: hys ter, Menstrual status: ?Hysterectomy, Current form of t [...] false-positive and false-negative report s may occur. ? End of Report Transcriptions 06/29/2016 3:28 AM CSTNotes Recorded by Radha Rojas RN on 02/09/2015 at 9:12 [facility], I am writing to let you know that your PAP and HPV result is negative. This means that your test resu lt was normal. No cancer or precancerous cells were seen. Based on current cervical cancer screening recommendations, your next PAP and HPV should be in 3 years. Continue to schedule your annual preventive exams for your overall health. If you have questions about cervical can cer screening or your test results, call Cervical Cancer Screening and Management [phone] presley RN on behalf ofDr. Emmie Holcomb, Grocery Store Bagger [facility] Cervical Cancer Screening and Management Chirag Metzger PA-C LAB_1 Performing Organization Address City/State/ZIP Code Phon e Number HP CONVERSION HPV with 16 18 Genotyping (01/13/2015 11:59 AM CDT) [facility] Method Time Signature HPV High Risk Not Detected HP CONVERSION 16 HPV High Risk Not Detected HP CONVERSION 18 Other HPV Not Detected HP CONVERSION High Risk Not 16/18 Comment: The Andrzej HPV Test is a qualitative in v itro test for the detection of Human Papillomavirus in [facility] patient specimens. ??The test utilizes amplifica tion [...] and its pe rformance characteristics determined by [facility]. It has not been cleared or approved by [facility]. The laboratory is regulated under CLIA as qualified to perform high-complexity testing. This test is used for clinical purposes. It should not be regarded as investigational or fo r research. Specimen Anatomical Collection Method Collection Time Receive d Time (Source) Location / / Volume Laterality 01/13/2015 11:59 01/13/2015 AM CDT 11:59 AM CDT Narrative HP CONVERSION - 01/15/2015 2:00 PM CDT Performed at [address] [address] Transcriptions 06/29/2016 3:28 AM CSTNotes Recorded by Radha Rojas RN on 02/09/2015 at 9:12 Campbell Sarah, I am writing to let you know that your PAP and HPV result is negative. This means that your test resu lt was normal. No cancer or precancerous cells were seen. Based on current cervical cancer screening recommendations, your next PAP and HPV should be in 3 years. Continue to schedule your annual preventive exams for your overall health. If you have questions about cervical can cer screening or your test results, call Cervical Cancer Screening and Management [phone] ceballos RN on behalf ofDr. Emmie Holcomb, Grocery Store Bagger [facility] Cervical Cancer Screening and Management Chirag Metzger PA-C LAB_1 Performing Organization Address City/State/ZIP Code Phon e Number HP CONVERSION Pap Test Order (01/13/2015 11:59 AM CDT) [facility] Method Time Signature Pap Smear Collected HP CONVERSION Monolayer tracking test Specimen Anatomical Collection Method Collection Time Receive d Time (Source) Location / / Volume Laterality 01/13/2015 11:59 01/14/2015 5:07 AM CDT AM CDT Narrative HP CONVERSION - 01/13/2015 11:59 AM CDT [place] [address] Chirag Metzger PA-C LAB_1 Performing Organization Address City/[facility]/ZIP Code Phon e Number HP CONVERSION documented in this encounter Visit Diagnoses Diagnosis Annual physical exam - Primary Routine general medical examination at a health care facility Rectal pain, chronic Anal or rectal pain Chronic pelvic pain in female Unspecified symptom associated with fema le genital organs Migraine without status migrainosus, not intractable, unspecified migraine type Screening for malignant neoplasm of the cervix documented in this encounter Care Teams Director Employment Relationship Specialty Start Date End Date Padmini Park PA-C PCP - General Family Practice 04/05/12 01/19/16 documented as of this encounter
--- OUTSIDE RECORDS SUMMARY | 2022-03-07 11:23 | XMS_ITS | Encounter Summary ---
:1970 Author Organization [employer] Address [address] [place] [address] Care Team Providers Name Role Phone Padmini Park PA-C Primary Care Provider Reason for Visit Reason Comments Refill Encounter Details Date Type Department Care Team Description 09/10/2015 Refill [facility] Jovanni e Chirag Metzger PA-C Refill [address] [place] [address] [place] [address] [phone] (Wo rk) Social History Tobacco Use Types Packs/Day Years Used Date Smoking Tobacco: Never Smokeless Tobacco: Never Alcohol Use Standard Drinks/Week Comments Yes 0 (1 standard drink = 0.6 oz pure alcoho l) occasional Sex Assigned at Date Recorded Not on file documented as of this encounter Nursing Notes Chirag Metzger PA-C - 09/10/2015 11:40 AM CDT faxed Karen Lyons RN - 09/10/2015 11:25 AM CDT See below, Pt is calling back. Wrong medication requested. Requested refill of Robaxin DOES NOT MEET REQUIREMENTS FOR REFILL Reason: medication not on approved RN refill list Last visit with PCP: acute visit on 07/21/15 Last refill #30 [id number] refills 01/13/15 Pt asking for a detailed message to be left on her voicemail Madison James LPN - 09/10/2015 11:11 AM CDT Left msg to return call to nurse line. Number provided . Note: Medication was discontinued by PCP 11/26/13. Need additional information regarding this request then can fwd to PCP to review. Gloria Nolen - 09/10/2015 10:56 AM CDT PSC Medication Issue/Refill Primary Care Provider: Chirag Metzger PA-C Patient to contact pharmacy: no Comment: Pt is requesting a med refill. 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
--- OUTSIDE RECORDS SUMMARY | 2022-03-07 11:23 | XMS_ITS | Encounter Summary ---
:1970 Author Organization [employer] Address [address] [place] [address] Care Team Providers Name Role Phone Padmini Park PA-C Primary Care Provider Reason for Visit Reason Comments NECK PAIN BACK PAIN BACK PAIN, LOW Encounter Details Date Type Department Care Team Description 07/15/2014 Office Visit [facility] [place], Nonallopathic lesion of sacr al region, not elsewhere classified (Primary Dx); [address] [place] Nonallopathic lesion of thor acic region, not elsewhere classified; [place] [id number] Nonallopathic lesion of cerv ical region, not elsewhere classified; [phone] Spasm of muscle Social History Tobacco Use Types Packs/Day Years Used Date Smoking Tobacco: Never Smokeless Tobacco: Never Alcohol Use Standard Drinks/Week Comments Yes 0 (1 standard drink = 0.6 oz pure alcoho l) occasional Sex Assigned at Date Recorded Not on file documented as of this encounter Progress Notes Enoc Blanca DC - 07/15/2014 1:56 PM CST Marla Cuellar is 43 yr female here for Chief Complaint Patient presents with ??? NECK PAIN ??? BACK PAIN ??? BACK PAIN, LOW Onset: Insidious onset of low back, mid back, neck pain and headaches. Same 09/27 Review of systems: Denies numbness, tingling, [...] REH[facility]IL[facility]ATE THE THORACIC REGIONS. Enoc Blanca [place] [employer] documented in this encounter Plan of Treatment Not on filedocumented as of this encounter Visit Diagnoses Diagnosis Nonallopathic lesion of sacral region, n ot elsewhere classified - Primary Nonallopathic lesion of thoracic region, not elsewhere classified Nonallopathic lesion of cervical region, not elsewhere classified Spasm of muscle documented in this encounter Care Teams Filling Operator Relationship Specialty Start Date End Date Padmini Park PA-C PCP - General Family Practice 04/05/12 01/19/16 documented as of this encounter
--- OUTSIDE RECORDS SUMMARY | 2022-03-07 11:23 | XMS_ITS | Encounter Summary ---
:1970 Author Organization [employer] Address [address] [place] [address] Care Team Providers Name Role Phone Padmini Park PA-C Primary Care Provider Reason for Visit Reason Comments NECK PAIN BACK PAIN BACK PAIN, LOW Encounter Details Date Type Department Care Team Description 12/11/2014 Office Visit [facility] [place], Nonallopathic lesion of cerv ical region, not elsewhere classified (Primary Dx); [address] [place] Nonallopathic lesion of thor acic region, not elsewhere classified; [place] [address] Nonallopathic lesion of sacr al region, not elsewhere classified; [phone] Cervicalgia; Spasm of muscle Social History Tobacco Use Types Packs/Day Years Used Date Smoking Tobacco: Never Smokeless Tobacco: Never Alcohol Use Standard Drinks/Week Comments Yes 0 (1 standard drink = 0.6 oz pure alcoho l) occasional Sex Assigned at Date Recorded Not on file documented as of this encounter Progress Notes [place] Blanca DC - 12/11/2014 8:01 AM CDT Marla Cuellar is 43 yr female here for Chief Complaint Patient presents with ??? NECK PAIN ??? BACK PAIN ??? BACK PAIN, LOW Onset of left low back, mid back, neck pain with headaches. Improvement 5-6/ Review of systems: Denies numbness, tingling, or [...] muscle documented in this encounter Care Teams Supervisor [place]ro[place] Relationship Specialty Start Date End Date Padmini Park PA-C PCP - General Family Practice 04/05/12 01/19/16 documented as of this encounter
--- OUTSIDE RECORDS SUMMARY | 2022-03-07 11:24 | XMS_ITS | Encounter Summary ---
:1970 Author Organization [employer] Address [address] [place] [address] Care Team Providers Name Role Phone Padmini Park PA-C Primary Care Provider Reason for Visit Reason Comments Revisit neck Encounter Details Date Type Department Care Team Description 09/15/2013 Office Visit [facility] [place], Nonallopathic lesion of sacr al region, not elsewhere classified (Primary Dx); [address] [place] Nonallopathic lesion of thor acic region, not elsewhere classified; [place] [id number] Nonallopathic lesion of cerv ical region, not elsewhere classified; [phone] Spasm of muscle Social History Tobacco Use Types Packs/Day Years Used Date Smoking Tobacco: Never Smokeless Tobacco: Never Alcohol Use Standard Drinks/Week Comments Yes 0 (1 standard drink = 0.6 oz pure alcoho l) occasional Sex Assigned at Date Recorded Not on file documented as of this encounter Last Filed Vital Signs Vital Sign Reading Time Taken Comments Blood Pressure 138/78 09/15/2013 9:50 AM CDT Pulse 68 09/15/2013 9:50 AM CDT Temperature - - Respiratory Rate - - Oxygen Saturation - - Inhaled Oxygen Concentration - - Weight - - Height - - Body Mass Index - - documented in this encounter Progress Notes [place] Blanca [place] - 09/15/2013 9:47 AM CDT Subjective Keara Villalobos Polo is 43 yr female here for No chief complaint on file. Onset: Insidious onset of low back, mid back and neck pain. Flare-up of pain, 11/27. Review of systems: Denies numbness, tingling, or [...] muscle documented in this encounter Care Teams Systems Analyst Relationship Specialty Start Date End Date Padmini Park PA-C PCP - General Family Practice 04/05/12 01/19/16 documented as of this encounter
--- OUTSIDE RECORDS SUMMARY | 2022-03-07 11:24 | XMS_ITS | Encounter Summary ---
:1970 Author Organization [facility] Address [address] [place] [address] Care Team Providers Name Role Phone Padmini Park PA-C Primary Care Provider Reason for Visit Reason Comments Provider Orders Encounter Details Date Type Department Care Team Description 12/09/2013 Telephone Chirag Cohpra PA-C Provider Orders [address] [place] [address] [place] [address] [phone] (Wo rk) Social History Tobacco Use Types Packs/Day Years Used Date Smoking Tobacco: Never Smokeless Tobacco: Never Alcohol Use Standard Drinks/Week Comments Yes 0 (1 standard drink = 0.6 oz pure alcoho l) occasional Sex Assigned at Date Recorded Not on file documented as of this encounter Nursing Notes Barb Peter LPN - 12/09/2013 4:37 PM CDT Pt informed Chirag Metzger PA-C - 12/09/2013 4:29 PM CDT Recommend going forward with PT first. If not responding over time as your PT would like, they will let the provider know, and next step scheduled. Carla Sherwood - 12/09/2013 4:21 PM CDT Keara called back and requesting a MRI of shoulder and neck . She has been seeing a chiropractor but not getting any better. She recently saw Dr Rita Downing recently and she ordered PT andshe hasn't scheduled that appointment yet. Please let her know by calling . Nilam Dawkins LPN - 12/09/2013 4:04 PM CDT Triage nurse called patient back, [id number] Yamel Armando - 12/09/2013 4:00 PM CDT Lab/Radiology Requests Primary Care Provider: Chirag Metzger PA-C What test is needed and when? MRI of neck/shoulders as soon as possible Why is test needed/requested? ongoing neck and shoulder pain *If symptom related, send to triage Flight Engineer Instructor: Keara Cuellar Best call back number: [phone] (home) , Telephone Information: Is it OK to leave a confidential message on this voicemail? yes documented in this encounter Plan of Treatment Not on filedocumented as of this encounter Visit Diagnoses Not on filedocumented in this encounter Care Teams Mold Yard Worker Relationship Specialty Start Date End Date Padmini Park PA-C PCP - General Family Practice 04/05/12 01/19/16 documented as of this encounter
--- OUTSIDE RECORDS SUMMARY | 2022-03-07 11:24 | XMS_ITS | Encounter Summary ---
:1970 Author Organization [facility] Address [address] [place] [address] Care Team Providers Name Role Phone Padmini Park PA-C Primary Care Provider Reason for Visit Reason Comments Revisit Encounter Details Date Type Department Care Team Description 10/08/2013 Office Visit [facility], Nonallopathic lesion of sacr al region, not elsewhere classified (Primary Dx); [address] [place] Nonallopathic lesion of thor acic region, not elsewhere classified; [place] [id number] Nonallopathic lesion of cerv ical region, not elsewhere classified; [phone] Spasm of muscle Social History Tobacco Use Types Packs/Day Years Used Date Smoking Tobacco: Never Smokeless Tobacco: Never Alcohol Use Standard Drinks/Week Comments Yes 0 (1 standard drink = 0.6 oz pure alcoho l) occasional Sex Assigned at Date Recorded Not on file documented as of this encounter Progress Notes Enoc Blanca DC - 10/08/2013 3:44 PM CDT Subjective Keara Cuellar is 43 yr female here for Chief Complaint Patient presents with ??? Revisit Onset: Insidious onset of low back, mid back and neck pain. 10/28. Review of systems: Denies numbness, tingling, or [...] muscle documented in this encounter Care Teams Merchant Banker Relationship Specialty Start Date End Date Padmini Park PA-C PCP - General Family Practice 04/05/12 01/19/16 documented as of this encounter
--- OUTSIDE RECORDS SUMMARY | 2022-03-07 11:24 | XMS_ITS | Encounter Summary ---
:1970 Author Organization [email or web address] Address [address] [place] [address] Care Team Providers Name Role Phone Padmini Park PA-C Primary Care Provider Reason for Visit Reason Comments MEDICATION CHECK Encounter Details Date Type Department Care Team Description 12/05/2013 Office Visit [facility] Chirag Metzger, Fatigue (Primary Dx); [address] PA-C Headache, migraine; [place] [id number] [address] Vitamin D deficiency [phone] [place] [id number] Social History Tobacco Use Types Packs/Day Years Used Date Smoking Tobacco: Never Smokeless Tobacco: Never Alcohol Use Standard Drinks/Week Comments Yes 0 (1 standard drink = 0.6 oz pure alcoho l) occasional Sex Assigned at Date Recorded Not on file documented as of this encounter Last Filed Vital Signs Vital Sign Reading Time Taken Comments Blood Pressure 130/86 12/05/2013 2:34 PM CDT Pulse - - Temperature - - Respiratory Rate - - Oxygen Saturation - - Inhaled Oxygen Concentration - - Weight 78 kg (172 lb) 12/05/2013 2:34 PM CDT Height - - Body Mass Index 33.04 11/26/2013 3:49 PM CDT documented in this encounter Progress Notes Chirag Metzger PA-C - 12/15/2013 9:35 AM CDT SUBJECTIVE: This 43 y.o. female presents today with the following concern(s): Wants to go through her vitamins She has a bunch of vitamins and supplements, and she wants to go through them to see what she shouldbe taking, and what she can stop. She has some fatigue issues, and would like to do some vitamin testing. Adverse Drug Reactions: has No Known Allergies. Medications: has a current medication list which includes the following prescription(s): diazepam, hydroxyzine pamoate, ibuprofen, methocarbamol, phentermine, rizatriptan, and topiramate. Tobacco History: reports that she has never smoked. She has never used smokeless tobacco. Alcohol History: reports that she drinks about 1.8 ounces of alcohol per week. OBJECTIVE: Vital Signs: BP 130/86 Wt 172 lb (78.019 kg) BMI 33.03 kg/m2 General appearance: alert, cooperative, no distress, appears stated age ASSESSMENT/PLAN: Keara was seen today for medication check. Diagnoses and associated orders for this visit: Fatigue - Vitamin B-12; Future Headache, migraine - rizatriptan (MAXALT) 10 mg tablet; Take 1 tablet by mouth as needed for Migraine. May repeat in 2 hours if needed Vitamin D deficiency - Calcium; Future - Vitamin D (In house); Future Went through her vitamins and supplements and made a reasonable plan for what she will continue and what she will discontinue. I will let her know results of labs as soon as available. The patient was discharged ambulatory and in stable condition. documented in this encounter Plan of Treatment Not on filedocumented as of this encounter Visit Diagnoses Diagnosis Fatigue - Primary Other malaise and fatigue Headache, migraine Migraine, unspecified, without mention o f intractable migraine without mention of status migrainosus Vitamin D deficiency (HRC) Unspecified vitamin D deficiency documented in this encounter Care Teams Farm Crew Member Relationship Specialty Start Date End Date Padmini Park PA-C PCP - General Family Practice 04/05/12 01/19/16 documented as of this encounter
--- OUTSIDE RECORDS SUMMARY | 2022-03-07 11:24 | XMS_ITS | Encounter Summary ---
:1970 Author Organization [facility] Address [address] [place] [address] Care Team Providers Name Role Phone Padmini Park PA-C Primary Care Provider Encounter Details Date Type Department Care Team Description 01/07/2014 Imaging [facility] Breast cancer screening [address] [place] [address] Social History Tobacco Use Types [...] Associated Diagnosis Comme nts MM MAMMOGRAM Routine 01/07/2014 9:43 AM Breast cancer Results for this SCREENING BILAT W CDT screening procedure are in CAD the results section. documented in this encounter Results MM Mammogram Screening Bilat W CAD (01/07/2014 9:43 AM CDT) Anatomical Region Laterality Modality Breast Bilateral Mammography Specimen (Source) Anatomical Location Collection Method / Collectio n Time Received Time / Laterality Volume Impressions 01/07/2014 1:57 PM CDT : BIRADS 2 Benign Finding(s) (overall) Follow Up Mammogram in 1 year - Bilatera unique The results and recommendations of this examination will be communicated to the patient by the [facility] and we will attempt to schedule any recommended imaging follow up with the patient. BJ Narrative 01/07/2014 1:57 PM CDT Compared to: 09/26/2012 MM Mammogram Scr eening Bilateral W Cad, 08/22/2011 Mammogram Comparison is made to outside films from 05/16/2006 ([facility], [place]) FINDINGS: Bilateral screening mammogram was performed. There are scattered fibroglandular densities (25-50%) in the breasts. There are changes of breast reduction. No significant mass, calcifications or o ther abnormalities are seen in either breast. Procedure Note Art Hernandez MD - 01/13/2016Format ting of this note might be different from the original. Compared to: 09/26/2012 MM Mammogram Scr eening Bilateral W Cad, 08/22/2011 Mammogram Comparison is made to outside films from 05/16/2006 ([facility], [place]) FINDINGS: Bilateral screening mammogram was performed. There are scattered fibroglandular densities (25-50%) in the breasts. There are changes of breast reduction. No significant mass, calcifications or o ther abnormalities are seen in either breast. IMPRESSION : BIRADS 2 Benign Finding(s) (overall) Follow Up Mammogram in 1 year - Yeny calhoun The results and recommendations of this examination will be communicated to the patient by the [facility] and we will attempt to schedule any recommended imaging follow up with the patient. BJ Chirag Metzger PA-C RAD [facility] documented in this encounter Visit Diagnoses Diagnosis Breast cancer screening Breast screening, unspecified documented in this encounter Care Teams Balance Engineer Relationship Specialty Start Date End Date Padmini Park PA-C PCP - General Family Practice 04/05/12 01/19/16 documented as of this encounter
--- OUTSIDE RECORDS SUMMARY | 2022-03-07 11:24 | XMS_ITS | Encounter Summary ---
:1970 Author Organization [facility] Address [address] [place] [address] Care Team Providers Name Role Phone Padmini Park PA-C Primary Care Provider Reason for Visit Reason Comments ANXIETY Encounter Details Date Type Department Care Team Description 09/17/2013 Office Visit [facility]ri, Lissa Taylor, Jessy y (Primary Dx); [facility] [address] [facility] [address] [place] [address] [phone] Social History Tobacco Use Types Packs/Day Years Used Date Smoking Tobacco: Never Smokeless Tobacco: Never Alcohol Use Standard Drinks/Week Comments Yes 0 (1 standard drink = 0.6 oz pure alcoho l) occasional Sex Assigned at Date Recorded Not on file documented as of this encounter Last Filed Vital Signs Vital Sign Reading Time Taken Comments Blood Pressure 126/82 09/17/2013 9:40 AM CDT Pulse 60 09/17/2013 9:40 AM CDT Temperature - - Respiratory Rate - - Oxygen Saturation - - Inhaled Oxygen Concentration - - Weight 81.2 kg (179 lb) 09/17/2013 9:40 AM CDT Height 154.9 cm (5' 1) 09/17/2013 9:40 AM CDT Body Mass Index 33.82 09/17/2013 9:40 AM CDT documented in this encounter Progress Notes Lissa Wade, - 09/17/2013 1:39 PM CDT Subjective: Keara Cuellar is a 43 y.o. female who presents for new evaluation and treatment of anxiety disorder, sleep disturbance. She has the following anxiety symptoms: fatigue, feelings of losing control, insomnia, irritable and racing thoughts. Onset of symptoms was approximately 3 months ago, but has been an issue intermittently since 7-8 years ago. Symptoms have been stable since that time. She denies current suicidal and homicidal ideation. Family history significant for anxiety. Risk factors: negativelife event multiple deaths in her life, including a cousin who she was close to.. Previous treatmentincludes multiple meds in the past that caused flattened affect, which she didn't like. She complains of the following medication side effects: drowsiness. BABITA=4, PHQ9=9 Patient is also going to obesity clinic and restarted Adipex 37.5 mg recently. She has a treadmill at home but hasn't used it since she bought is 2 months ago. Patient's medications, allergies, past medical, surgical, social and family histories were reviewed and updated as appropriate. Review of Systems negative life event multiple deaths in the past year, radha a cousin who was young and close to patient. Objective: BP 126/82 Pulse 60 Ht 5' 1 (1.549 m) Wt 179 lb (81.194 kg) BMI 33.84 kg/m2 General appearance: alert, cooperative, no distress, appears stated age Head: Normocephalic, without obvious abnormality, atraumatic Psychiatric: Alert & oriented with normal affect and insight. Patient does not appear depressed or anxious. Good eye contact. Did use good speech pattern and tone. Congruent thoughts. Good historian. No pressure speech. Assessment: anxiety disorder, sleep disturbance. Possible organic contributing causes are: medications. Plan: Patient has tried multiple meds in the past but doesn't remember what they were from 7 years ago. She does not want to go back to that drug regimen, but feels that she would like to start some medication to help with her anxiety so that it does not worsen to the point that it was 7 years ago. She has not used a therapist or counselor in the past but open to the idea. Discussed various classes of medications to help treat anxiety. Recommended trial of Vistaril 25 mg, to use at night which should improve her sleep. If the insomnia is due to the weight loss medication, this might not take care of the problem entirely. Patient may feel less irritable and overwhelmed with better sleep at night. Recheckin 2-3 weeks, sooner as needed. If Vistaril is not successful, may consider trazodone. Rx: Vistaril at night Reviewed concept of anxiety as biochemical imbalance of neurotransmitters and rationale for treatment. Instructed patient to contact office or on-call physician promptly should condition worsen or any new symptoms appear and provided on-call telephone numbers. IF THE PATIENT HAS ANY SUICIDAL OR HOMICIDAL IDEATION, CALL THE OFFICE, DISCUSS WITH A SUPPORT MEMBER, OR GO TO THE ER IMMEDIATELY. Patient was a greeable with this plan. Follow up: 3 weeks documented in this encounter Plan of Treatment Not on filedocumented as of this encounter Visit Diagnoses Diagnosis Anxiety (HRC) - Primary Anxiety state, unspecified Insomnia Insomnia, unspecified documented in this encounter Care Teams E Learning Manager Relationship Specialty Start Date End Date Padmini Park PA-C PCP - General Family Practice 04/05/12 01/19/16 documented as of this encounter
--- OUTSIDE RECORDS SUMMARY | 2022-03-07 11:24 | XMS_ITS | Encounter Summary ---
:1970 Author Organization [facility] Address [address] [place] [address] Care Team Providers Name Role Phone Padmini Park PA-C Primary Care Provider Reason for Visit Reason Comments Patient Calling Back Encounter Details Date Type Department Care Team Description 03/04/2014 Telephone Chirag Chopra PA-C Patient Calling Back [address] [place] [address] [place] [address] [phone] (Wo rk) Social History Tobacco Use Types Packs/Day Years Used Date Smoking Tobacco: Never Smokeless Tobacco: Never Alcohol Use Standard Drinks/Week Comments Yes 0 (1 standard drink = 0.6 oz pure alcoho l) occasional Sex Assigned at Date Recorded Not on file documented as of this encounter Nursing Notes Rita Jarrett - 03/05/2014 10:01 AM CDT left message that rx was sent Chirag Metzger PA-C - 03/05/2014 8:38 AM CDT faxed Rx for azelastine Kenya Desai RN - 03/05/2014 8:24 AM CDT Pt called back - helio is on her formulary. Negrito Gomez - 03/05/2014 8:16 AM CDT The patient is calling back, see previous entry, the call was transferred to triage. Christiana Johnson - 03/04/2014 4:29 PM CDT Patient called back to state she will check with insurance to see what alternatives are covered and will call back. Sumaya Rooney - 03/04/2014 4:23 PM CDT LVM asking pt to call us back so that we can relay below message. Sumaya Rooney - 03/04/2014 4:22 PM CDT Received PA request from pt's pharmacy for olopatadine (PATANOL) 0.1 % ophthalmic solution. Pt has [employer] insurance. Medication is not covered by [employer]. Per verbal discussion with PCP, pt should contact insurance company and find out which options are covered and call us back to let us know. Then PCP will decide what to rx. If nothing is covered, then PA will be initiated. Left call back number for pt. documented in this encounter Plan of Treatment Not on filedocumented as of this encounter Visit Diagnoses Diagnosis Chronic allergic conjunctivitis - Primar y Other chronic allergic conjunctivitis documented in this encounter Care Teams Children'S Nursery Assistant Relationship Specialty Start Date End Date Padmini Park, LION PCP - General Family Practice 04/05/12 01/19/16 documented as of this encounter
--- OUTSIDE RECORDS SUMMARY | 2022-03-07 11:24 | XMS_ITS | Encounter Summary ---
:1970 Author Organization [facility] Address [address] [place] [address] Care Team Providers Name Role Phone Padmini Park PA-C Primary Care Provider Reason for Visit Reason Comments HEADACHE NECK PAIN BACK PAIN Encounter Details Date Type Department Care Team Description 02/04/2014 Office Visit [facility], Nonallopathic lesion of sacr al region, not elsewhere classified (Primary Dx); [address] [place] Nonallopathic lesion of thor acic region, not elsewhere classified; [place] [id number] Nonallopathic lesion of cerv ical region, not elsewhere classified; [phone] Spasm of muscle Social History Tobacco Use Types Packs/Day Years Used Date Smoking Tobacco: Never Smokeless Tobacco: Never Alcohol Use Standard Drinks/Week Comments Yes 0 (1 standard drink = 0.6 oz pure alcoho l) occasional Sex Assigned at Date Recorded Not on file documented as of this encounter Progress Notes Enoc Blanca DC - 02/04/2014 3:22 PM CDT Subjective Keara Cuellar is 43 yr female here for Chief Complaint Patient presents with ??? HEADACHE ??? NECK PAIN ??? BACK PAIN Onset: Insidious onset of migraine headache, low back, mid back and neck pain. Started on 01/23/2014. 12/28 Review of systems: Denies numbness, tingling, [...] muscle documented in this encounter Care Teams Carpenters Relationship Specialty Start Date End Date Padmini Park PA-C PCP - General Family Practice 04/05/12 01/19/16 documented as of this encounter
--- OUTSIDE RECORDS SUMMARY | 2022-03-07 11:24 | XMS_ITS | Encounter Summary ---
:1970 Author Organization [facility] Address [address] [place] [address] Care Team Providers Name Role Phone Padmini Park PA-C Primary Care Provider Reason for Visit Reason Comments SHOT,FLU Encounter Details Date Type Department Care Team Description 03/20/2014 Immunization [facility] Encounter for immunization [address] (Primary Dx) [place] [address] Social History Tobacco Use Types Packs/Day Years Used Date Smoking Tobacco: Never Smokeless Tobacco: Never Alcohol Use Standard Drinks/Week Comments Yes 0 (1 standard drink = 0.6 oz pure alcoho l) occasional Sex Assigned at Date Recorded Not on file documented as of this encounter Progress Notes David Peña - 03/20/2014 10:19 AM CDT Keara Villalobos Polo here for injection(s). ordered per standing order . See orders. Contraindications and side effects discussed with self self verbalized understanding of risks, possible side effects, and benefits of the injection and gave permission to administer the stated immunization(s). No precautions or contraindications noted. Tolerated injection well. See immunization/injection report for administration documentation. TAMICA Dow documented in this encounter Plan of Treatment Not on filedocumented as of this encounter Visit Diagnoses Diagnosis Encounter for immunization - Primary Need for other specified prophylactic va ccination against single bacterial disease documented in this encounter Care Teams Ad Writer Relationship Specialty Start Date End Date Padmini Park PA-C PCP - General Family Practice 04/05/12 01/19/16 documented as of this encounter
--- OUTSIDE RECORDS SUMMARY | 2022-03-07 11:24 | XMS_ITS | Encounter Summary ---
:1970 Author Organization [employer] Address [address] [place] [address] Care Team Providers Name Role Phone Padmini Park PA-C Primary Care Provider Reason for Visit Reason Comments HEADACHE,MIGRAINE Encounter Details Date Type Department Care Team Description 02/04/2014 Office Visit Chirag Chopra, Status migrainosus [address] PA-C (Primary Dx) [place] [id number] [address] [phone] [place] [phone] Social History Tobacco Use Types Packs/Day Years Used Date Smoking Tobacco: Never Smokeless Tobacco: Never Alcohol Use Standard Drinks/Week Comments Yes 0 (1 standard drink = 0.6 oz pure alcoho l) occasional Sex Assigned at Date Recorded Not on file documented as of this encounter Last Filed Vital Signs Vital Sign Reading Time Taken Comments Blood Pressure 118/70 02/04/2014 2:47 PM CDT Pulse - - Temperature - - Respiratory Rate - - Oxygen Saturation - - Inhaled Oxygen Concentration - - Weight 76.7 kg (169 lb) 02/04/2014 2:47 PM CDT Height - - Body Mass Index 32.46 11/26/2013 3:49 PM CDT documented in this encounter Progress Notes Chirag Metzger PA-C - 02/04/2014 3:10 PM CDT SUBJECTIVE: This 43 y.o. female presents today with the following concern(s): Migraine Migraine, chronic, without aura, intractable, with status migrainosus She has had a typical migraine, symptom-cole, but it has lasted since 01/23/2014. Does get better, butwill recur within 24 hours when it goes away. She has a tightness across the top of her head and into her forehead, nausea, and light sensitivity. She was seen at [facility] on 01/28/2014, andwas given a shot of Toradol and an oral dose of ondansetron in the clinic. The ondansetron helped. She was discharged with Percocet and Prednisone. She took 1 dose of each, but stopped both because of increased nausea with the Percocet, and because she didn't understand the purpose of the Prednisone. Since then, she has been resting as much as possible, wearing sunglasses to prevent glare, and takingher rizatriptan. Past Medical History: Patient Active Problem List Diagnosis ??? Fibroid uterus ??? Syncope, psychogenic ??? Headache, migraine ??? Migraine, chronic, without aura, intractable, with status migrainosus ??? Obese Adverse Drug Reactions: has No Known Allergies. Medications: has a current medication list which includes the following prescription(s): diazepam, hydroxyzine pamoate, ibuprofen, methocarbamol, phentermine, and rizatriptan. Tobacco History: reports that she has never smoked. She has never used smokeless tobacco. Alcohol History: reports that she drinks about 1.8 ounces of alcohol per week. OBJECTIVE: Vital Signs: BP 118/70 Wt 169 lb (76.658 kg) BMI 32.45 kg/m2 General appearance: alert, cooperative, no distress, appears stated age, Eyes: conjunctivae/corneas clear. PERRL, EOM's intact. Fundi benign, Ears: normal TM's and external ear canals AU, Neck: supple,symmetrical, trachea midline, no adenopathy, thyroid: not enlarged, symmetric, no tenderness/mass/nodules and no carotid bruit, Lungs: clear to auscultation bilaterally, Heart: regular rate and rhythm,S1, S2 normal, no murmur, click, rub or gallop and Neurologic: Alert and oriented X 3, normal strength and tone. Normal symmetric reflexes. Normal coordination and gait ASSESSMENT/PLAN: Keara was seen today for migraine. Diagnoses and associated orders for this visit: Status migrainosus - ondansetron (ZOFRAN-ODT) 4 mg disintegrating tablet; Take 1 tablet by mouth every 8 hours as needed for Nausea or Vomiting. Dissolve tablet on tongue - predniSONE (DELTASONE) 10 mg tablet; Take 4 tabs BID x3d, then 3 tabs BID x3d, then 2 tabs BID x2d, then 1 tab BID x2 days, then done. Take with food. Discussed the purpose of each medication, how to take, potential benefits, when she might start to see clinical effects, and potential adverse effects. If this does not break the migraine cycle, will recommend that she present to [facility] for admission for Status Migraine Protocol. Discussedestablishing with Neurology for ongoing management of her migraine syndrome, which she is agreeable to; however, she does not want to go to [place] for this. Will check with her insurance company to see where she can go that is closer to home. The patient was discharged ambulatory and in stable condition. documented in this encounter Miscellaneous Notes Assessment & Plan Note - Chirag Metzger PA-C - 02/04/2014 3:07 PM CDT She has had a typical migraine, symptom-cole, but it has lasted since 01/23/2014. Does get better, butwill recur within 24 hours when it goes away. She has a tightness across the top of her head and into her forehead, nausea, and light sensitivity. She was seen at [facility] on 01/28/2014, andwas given a shot of Toradol and an oral dose of ondansetron in the clinic. The ondansetron helped. She was discharged with Percocet and Prednisone. She took 1 dose of each, but stopped both because of increased nausea with the Percocet, and because she didn't understand the purpose of the Prednisone. Since then, she has been resting as much as possible, wearing sunglasses to prevent glare, and takingher rizatriptan. documented in this encounter Plan of Treatment Not on filedocumented as of this encounter Visit Diagnoses Diagnosis Status migrainosus - Primary Variants of migraine, not elsewhere clas sified, without mention of intractable migraine without mention of status migra inosus documented in this encounter Care Teams Automotive Software Engineer Relationship Specialty Start Date End Date Padmini Park PA-C PCP - General Family Practice 04/05/12 01/19/16 documented as of this encounter
--- OUTSIDE RECORDS SUMMARY | 2022-03-07 11:24 | XMS_ITS | Encounter Summary ---
:1970 Author Organization [employer] Address [address] [place] [address] Care Team Providers Name Role Phone Padmini Park PA-C Primary Care Provider Reason for Visit Reason Comments NECK PAIN BACK PAIN Encounter Details Date Type Department Care Team Description 03/20/2014 Office Visit [facility], Nonallopathic lesion of sacr al region, not elsewhere classified (Primary Dx); [address] Enoc Lazaro [place] Nonallopathic lesion of thor acic region, not elsewhere classified; [place] [id number] Nonallopathic lesion of cerv ical region, not elsewhere classified; [phone] Spasm of muscle Social History Tobacco Use Types Packs/Day Years Used Date Smoking Tobacco: Never Smokeless Tobacco: Never Alcohol Use Standard Drinks/Week Comments Yes 0 (1 standard drink = 0.6 oz pure alcoho l) occasional Sex Assigned at Date Recorded Not on file documented as of this encounter Progress Notes Enoc Blanca DC - 03/20/2014 10:00 AM CDT Subjective Keara Cuellar is 43 yr female here for Chief Complaint Patient presents with ??? NECK PAIN ??? BACK PAIN Onset: Insidious onset of low back, mid back and neck pain. Flare-up of pain. 12/28 Review of systems: Denies numbness, tingling, [...] muscle documented in this encounter Care Teams Insurance Auditor Relationship Specialty Start Date End Date Padmini Park PA-C PCP - General Family Practice 04/05/12 01/19/16 documented as of this encounter
--- OUTSIDE RECORDS SUMMARY | 2022-03-07 11:24 | XMS_ITS | Encounter Summary ---
:1970 Author Organization [employer] Address [address] [place] [address] Care Team Providers Name Role Phone Padmini Park PA-C Primary Care Provider Reason for Visit Reason Comments Medication Questions Encounter Details Date Type Department Care Team Description 03/03/2014 Telephone Chirag Chopra PA-C Medication Questions [address] [place] [address] [place] [address] [phone] (Wo rk) Social History Tobacco Use Types Packs/Day Years Used Date Smoking Tobacco: Never Smokeless Tobacco: Never Alcohol Use Standard Drinks/Week Comments Yes 0 (1 standard drink = 0.6 oz pure alcoho l) occasional Sex Assigned at Date Recorded Not on file documented as of this encounter Nursing Notes Sumaya Rooney - 03/04/2014 3:25 PM CDT LVM informing pt that requested medications were sent to pharmacy requested. Faxed Diazepam. Note complete. Chirag Metzger PA-C - 03/04/2014 1:10 PM CDT Ibuprofen and Patanol prescriptions faxed to pharmacy. Diazepam prescription on Barb's desk. Kenya Desai RN - 03/04/2014 1:05 PM CDT Pt requesting 3 medications: 1. Need ibuprofen order. RN unable to refill per protocol as it was previously ordered by a providerother than her PCP. 2. Requesting Valium refill. She has a lengthy trip planned with three round- trip flights and uses this for motion sickness and anxiety. 3. She has used OTC allergy eye gtts with no relief and is requesting a prescription medication. Specifically asking for Patanol. Sofie Bryan RN - 03/03/2014 1:29 PM CDT Left message to call back [phone] Justina Manzo - 03/03/2014 1:08 PM CDT Patient wants to know if Dr. Metzger can increase her pain medication dosage documented in this encounter Plan of Treatment Not on filedocumented as of this encounter Visit Diagnoses Diagnosis Chronic allergic conjunctivitis - Primar y Other chronic allergic conjunctivitis Motion sickness documented in this encounter Care Teams Speech Pathology Supervisor Relationship Specialty Start Date End Date Padmini Park PA-C PCP - General Family Practice 04/05/12 01/19/16 documented as of this encounter
--- OUTSIDE RECORDS SUMMARY | 2022-03-07 11:24 | XMS_ITS | Encounter Summary ---
:1970 Author Organization [employer] Address [address] [place] [address] Care Team Providers Name Role Phone Pamdini Park PA-C Primary Care Provider Reason for Visit Reason Comments Follow-up, NOS Encounter Details Date Type Department Care Team Description 11/28/2013 Office Visit [facility], Nonallopathic lesion of sacr al region, not elsewhere classified (Primary Dx); [address] Enoc Lazaro [place] Nonallopathic lesion of thor acic region, not elsewhere classified; [place] [phone] Nonallopathic lesion of cerv ical region, not elsewhere classified; [phone] Spasm of muscle Social History Tobacco Use Types Packs/Day Years Used Date Smoking Tobacco: Never Smokeless Tobacco: Never Alcohol Use Standard Drinks/Week Comments Yes 0 (1 standard drink = 0.6 oz pure alcoho l) occasional Sex Assigned at Date Recorded Not on file documented as of this encounter Progress Notes Enoc Blanca DC - 11/28/2013 8:06 AM CDT Subjective Keara Cuellar is 43 yr female here for Chief Complaint Patient presents with ??? Follow-up, NOS Onset: Insidious onset of low back, mid back and neck pain. Woke up with neck pain on 11/21/2013. Improvement. 07/28 Review of systems: Denies numbness, tingling, or [...] muscle documented in this encounter Care Teams Hospitalist Nocturnist Physician Relationship Specialty Start Date End Date Padmini Park PA-C PCP - General Family Practice 04/05/12 01/19/16 documented as of this encounter
--- OUTSIDE RECORDS SUMMARY | 2022-03-07 11:24 | XMS_ITS | Encounter Summary ---
:1970 Author Organization [facility] Address [address] [place] [address] Care Team Providers Name Role Phone Padmini Park PA-C Primary Care Provider Reason for Visit Reason Comments SHOULDER PAIN Encounter Details Date Type Department Care Team Description 11/26/2013 Office Visit [facility] Rosales Downing in (Primary Dx); Medicine Rita Dick MD Left shoulder pain [id number] [address] [place], [place] [address] [address] [place], [place] [phone] [address] Social History Tobacco Use Types Packs/Day Years Used Date Smoking Tobacco: Never Smokeless Tobacco: Never Alcohol Use Standard Drinks/Week Comments Yes 0 (1 standard drink = 0.6 oz pure alcoho l) occasional Sex Assigned at Date Recorded Not on file documented as of this encounter Last Filed Vital Signs Vital Sign Reading Time Taken Comments Blood Pressure 110/70 11/26/2013 3:49 PM CDT Pulse 77 11/26/2013 3:49 PM CDT Temperature 36.8 ??C (98.2 ??F) 11/26/2013 3:49 PM CDT Respiratory Rate 16 11/26/2013 3:49 PM CDT Oxygen Saturation 99% 11/26/2013 3:49 PM CDT Inhaled Oxygen Concentration - - Weight 78.6 kg (173 lb 3.2 oz) 11/26/2013 3:49 PM CDT Height 153.7 cm (5' 0.5) 11/26/2013 3:49 PM CDT Body Mass Index 33.27 11/26/2013 3:49 PM CDT documented in this encounter Patient Instructions Patient InstructionsRita Downing - 11/26/2013 4:07 PM CDT -Discontinue the Flexeril. -Robaxin as needed for muscle spasm, only as directed. -Do not drive within 8 hours of taking Robaxin. -Schedule Physical Therapy, as discussed. -Follow up with primary MD in 1-2 weeks if continued symptoms. -Follow up in the ER immediately if progressive weakness, chest pain, severe upper back pain, or shortness of breath, as discussed. documented in this encounter Progress Notes Stacie Liz - 12/02/2013 7:23 PM CDT Patient Followup Plan: Patient Declined BMI action plan. Rita Downing - 12/02/2013 7:23 PM CDT CC: Neck Pain. SUBJECTIVE: HPI: Keara Cuellar is a 43 y.o. female, with history of somewhat chronic pain involving her left shoulder. Left shoulder pain is constant, noted to be worse with range of motion. Patient has not soughtevaluation for this condition previously, nor has she had physical therapy. Patient maintains full range of motion of her left shoulder. No trauma/injury reported. Pain occasionally radiates to the left deltoid area, so patient is concerned about a rotator cuff issue. No paresthesias or weakness. No chest pain, shortness of breath, nausea, vomiting, diaphoresis, lightheadedness, severe (e.g. ripping/tearing) upper back pain, or exertional symptoms. Patient presents with pain involving her left neck, starting 5 days ago. Pain is constant, 2/10 severity at rest. Pain is 6-7/10 severity with forward flexion and movement. 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 Patient has switched to using a headset the past few days, which seems to help. No trauma/injury reported, as noted above. No fever, chills, nausea, or vomiting. Mild headache involving her posterior scalp. Patient typically avoids NSAIDs, given her history of migraines, treated with Topamax. No severe headaches in the recent past, but neck pain seems to radiate to her ear at times. No vision changes or acute neurologic deficits. Patient got a massage 3 days ago, which seemed to help. Left-sided neck pain is 50% improved the past 2- 3 days. Patient has been using Flexeril 10 mg q.h.s., as prescribed September 16, 2013. Patient has 6 pills of Flexeril left at this time. Past Medical History: Reviewed in [employer]. Allergies: Reviewed in [employer]. Medications: Reviewed in [employer]. SH: Works as a crab picker. ROS: Patient denies for , as she is post hysterectomy. OBJECTIVE: VITALS: BP 110/70 Pulse 77 Temp(Src) 98.3 ??F (36.8 ??C) (Oral) Resp 16 Ht 5' 0.5 (1.537 m) Wt 173 lb 3.2 oz (78.563 kg) BMI 33.26 kg/m2 SpO2 99%. GENERAL: Appears well, in no apparent distress. Pleasant affect. HEENT: Sclera anicteric, no conjunctivitis. NECK: Full range of motion. No nuchal rigidity. No lymphadenopathy, thyromegaly or mass. No midline tenderness. Tenderness noted over the left paraspinous muscles, with extension to involve the left trapezius muscle. HEART: Normal rate, regular rhythm, normal S1, S2, no murmurs, rubs, clicks or gallops. LUNGS: Clear to auscultation. No wheezes, rales, or rhonchi. Left anterior chest is tender to palpation. ABDOMEN: The abdomen is nondistended. BACK: Nontender to palpation, except over the distribution of the left trapezius muscle. EXTREMITIES: Full range of motion and symmetric strength x4 extremities. Auto Hauler strength 5/5 bilaterally. Intact, symmetric reflexes in the upper extremities. Sensation and pulses intact. No peripheral edema. LEFT SHOULDER: Full range of motion. 5/5 strength x4 rotator cuff muscles bilaterally. Tenderness topalpation is noted over the left trapezius muscle, as noted above. Negative shoulder apprehension sign. Negative Neer and Jimenez signs. Nontender over the acromioclavicular joint. NEUROLOGIC: Cranial nerves II through XII grossly intact. Gait within normal limits. NECK X-RAY: Discussed with and declined by patient. ASSESSMENT: 1. Left-sided Neck Pain, 6 days duration. Pain is 50% improved at this time. Suspect trapezius strain, based on exam. Pain is readily reproducible on exam, so doubt cardiac etiology. 2. Left Shoulder Pain x several months, constant. Pain is readily reproducible on exam. See #1 above. PLAN: Discussed risks/benefits of treatment strategies. Patient prefers to avoid NSAIDs, given her historyof migraines. Discontinue Flexeril, given its interaction with Phentermine. Robaxin as needed for muscle spasm, as prescribed in Epic. Do not drive within 8 hours of taking this medication. Follow up with primary MD in 1-2 weeks if continued symptoms, sooner PRN. Schedule Physical Therapy, as ordered in Epic. Follow up immediately if: chest pain; shortness of breath; severe upper back pain; progressive weakness; or progressive neurological deficits, as discussed. The patient was discharged ambulatory in stable condition post discussion of followup. documented in this encounter Plan of Treatment Not on filedocumented as of this encounter Visit Diagnoses Diagnosis Neck pain - Primary Cervicalgia Left shoulder pain Pain in joint, shoulder region documented in this encounter Care Teams Children'S Aide Relationship Specialty Start Date End Date Padmini Park PA-C PCP - General Family Practice 04/05/12 01/19/16 documented as of this encounter
--- OUTSIDE RECORDS SUMMARY | 2022-03-07 11:25 | XMS_ITS | Encounter Summary ---
:1970 Author Organization [employer] Address [address] [place] [address] Care Team Providers Name Role Phone Padmini Park PA-C Primary Care Provider Reason for Visit Reason Comments Abdominal Pain Encounter Details Date Type Department Care Team Description 06/24/2013 Nurse Triage Chirag Chopra PA-C Abdominal Pain [address] [place] [address] [place] [address] [phone] (Wo rk) Social History Tobacco Use Types Packs/Day Years Used Date Smoking Tobacco: Never Smokeless Tobacco: Never Alcohol Use Standard Drinks/Week Comments Yes 0 (1 standard drink = 0.6 oz pure alcoho l) occasional Sex Assigned at Date Recorded Not on file documented as of this encounter Nursing Notes Ameena Reese RN - 06/24/2013 1:12 PM CST Protocol: ABDOMINAL PAIN - [id number] Affirmative: SEVERE abdominal pain (e.g., excruciating) Disposition of Go To ED Now suggested. Pt is calling. C/o abdominal pain on the upper left side of her abdomen for the past week. Describespain as constant, but worse after eating. Describes pain as severe, and currently rates pain at a 7-8. Pt states that she has recently taken ibuprofen, otherwise the pain would be a 10. Describes pain as a pulling pain. Also reports nausea and occasional diarrhea. Pt states that she had a CT scan about 6 months ago and was diagnosed with diverticulitis. Pain feels similar, but it is in a different location. Per protocol, advised that pt be evaluated in the ER now. Pt states that she will check with her insurance company to see which ER she can go to. Pt verbalized understanding and agreement with plan. Pt was instructed to call the clinic with any questions, concerns, or worsening symptoms. TENDER documented in this encounter Plan of Treatment Not on filedocumented as of this encounter Visit Diagnoses Not on filedocumented in this encounter Care Teams Scarfing Machine Operator Relationship Specialty Start Date End Date Padmini Park PA-C PCP - General Family Practice 04/05/12 01/19/16 documented as of this encounter
--- OUTSIDE RECORDS SUMMARY | 2022-03-07 11:25 | XMS_ITS | Encounter Summary ---
:1970 Author Organization [employer] Address [address] [place] [address] Care Team Providers Name Role Phone Padmini Park PA-C Primary Care Provider Reason for Visit Reason Comments CONSULT Encounter Details Date Type Department Care Team Description 02/24/2013 Telephone [facility] Chirag Viera PA-C CONSULT [address] [place] [address] [place] [phone] (Wo rk) Social History Tobacco Use Types Packs/Day Years Used Date Smoking Tobacco: Never Smokeless Tobacco: Never Alcohol Use Standard Drinks/Week Comments Yes 0 (1 standard drink = 0.6 oz pure alcoho l) occasional Sex Assigned at Date Recorded Not on file documented as of this encounter Nursing Notes Chirag Metzger PA-C - 03/06/2013 3:06 PM CDT Order is in the computer. Will close note. Radha Espino - 03/06/2013 3:01 PM CDT FYI, despite several calls Keara has not called back to schedule Radha Espino - 02/25/2013 2:12 PM CDT Left message on answering machine to call me back. Chirag Metzger PA-C - 02/25/2013 1:49 PM CDT Order placed for colonoscopy. Please help her schedule through PN. Nilam Dawkins LPN - 02/24/2013 4:31 PM CDT Action requested: Needs colonoscopy Additional Info: Triage nurse called patient back, advised Chirag Metzger cannot refer outside of [facility]. Advised she has to stay within the [facility] system. She agreed. Please place referral in [facility]. Call her back and assist her with scheduling at Keara Cuellar ([facility]) [phone] (H) oklm ok for Sunday Ameena Trejo - 02/24/2013 4:22 PM CDT Referral/Consult Caller Name/Relationship: Primary Care Provider: Chirag Metzger What referral is needed? colonoscopy Why is referral needed? unknown Insurance Carrier: ne care Member ID: unknown Appointment already scheduled? yes When/With whom/Where? 03/26/13 Dr. Asher Marin What is needed from us? referral Call back phone or cell phone: Best time to call back number: any Is it OK to leave a confidential message on this voicemail? yes *ECODE documented in this encounter Plan of Treatment Not on filedocumented as of this encounter Visit Diagnoses Diagnosis Anal or rectal pain - Primary documented in this encounter Care Teams Sandwich Board Carrier Relationship Specialty Start Date End Date Padmini Park PA-C PCP - General Family Practice 04/05/12 01/19/16 documented as of this encounter
--- OUTSIDE RECORDS SUMMARY | 2022-03-07 11:25 | XMS_ITS | Encounter Summary ---
:1970 Author Organization [employer] Address [address] [place] [address] Care Team Providers Name Role Phone Padmini Park PA-C Primary Care Provider Reason for Visit Reason Comments Rash Encounter Details Date Type Department Care Team Description 05/27/2013 Office Visit Chirag Chopra PA-C Rash (Primary Dx) [address] [place] [address] [place] [address] [phone] (Wo rk) Social History Tobacco Use Types Packs/Day Years Used Date Smoking Tobacco: Never Smokeless Tobacco: Never Alcohol Use Standard Drinks/Week Comments Yes 0 (1 standard drink = 0.6 oz pure alcoho l) occasional Sex Assigned at Date Recorded Not on file documented as of this encounter Last Filed Vital Signs Vital Sign Reading Time Taken Comments Blood Pressure - - Pulse - - Temperature - - Respiratory Rate - - Oxygen Saturation - - Inhaled Oxygen Concentration - - Weight 79.2 kg (174 lb 8 oz) 05/27/2013 10:49 AM 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 female presents today with the following concern(s): Rash Itchy rash underneath, and on top of, each breast for the last 1 week. No known new exposures. Started with bumps, then used OTC hydrocortisone ointment, and the bumps have flattened out; however, still has red discoloration and itching. Adverse Drug Reactions: has No Known Allergies. Medications: has a current medication list which includes the following prescription(s): cyclobenzaprine, diazepam, dihydroergotamine, hydrocodone- acetaminophen, ibuprofen, ibuprofen-diphenhydramine, metronidazole, ondansetron, oral medication containers, rizatriptan, syringe (disposable), topiramate,and topiramate. Tobacco History: reports that she has never smoked. She has never used smokeless tobacco. Alcohol History: reports that she drinks about 1.8 ounces of alcohol per week. OBJECTIVE: Vital Signs: Wt 174 lb 8 oz (79.153 kg) BMI 32.99 kg/m2 General appearance: alert, cooperative, no distress, appears stated age, Lungs: clear to auscultation bilaterally, Heart: regular rate and rhythm, S1, S2 normal, no murmur, click, rub or gallop and Skin: erythematous bumps underneath the breasts, with some background hyperpigmentation. On top of the breasts, just hyperpigmentation in patches. ASSESSMENT/PLAN: Keara was seen today for rash. Diagnoses and associated orders for this visit: Rash - ketoconazole (NIZORAL) 2 % cream; Apply topically daily (every 24 hours). Continue using OTC hydrocortisone, applied sparingly to affected areas up to 3 times/day. Discussed the purpose of ketoconazole cream, how to use, potential benefits, and potential adverse effects. Return to clinic as needed. The patient was discharged ambulatory and in stable condition. 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
--- OUTSIDE RECORDS SUMMARY | 2022-03-07 11:25 | XMS_ITS | Encounter Summary ---
:1970 Author Organization [employer] Address [address] [facility] [place] [address] Care Team Providers Name Role Phone Padmini Park PA-C Primary Care Provider Reason for Visit Reason Comments Follow-up, NOS Encounter Details Date Type Department Care Team Description 08/01/2013 Office Visit [facility], Nonallopathic lesion of sacr al region, not elsewhere classified (Primary Dx); [address] [facility] Enoc Laz[place] Nonallopathic lesion of thor acic region, not elsewhere classified; [place] [id number] Nonallopathic lesion of cerv ical region, not elsewhere classified; [phone] Spasm of muscle Social History Tobacco Use Types Packs/Day Years Used Date Smoking Tobacco: Never Smokeless Tobacco: Never Alcohol Use Standard Drinks/Week Comments Yes 0 (1 standard drink = 0.6 oz pure alcoho l) occasional Sex Assigned at Date Recorded Not on file documented as of this encounter Last Filed Vital Signs Vital Sign Reading Time Taken Comments Blood Pressure 110/73 08/01/2013 10:22 AM CDT Pulse 82 08/01/2013 10:22 AM CDT Temperature - - Respiratory Rate - - Oxygen Saturation - - Inhaled Oxygen Concentration - - Weight 76.2 kg (168 lb) 08/01/2013 10:22 AM CDT Height 154.9 cm (5' 1) 08/01/2013 10:22 AM CDT Body Mass Index 31.74 08/01/2013 10:22 AM CDT documented in this encounter Progress Notes Enoc Blanca, MIAN - 08/01/2013 10:22 AM CDT Subjective Keara Cuellar is 43 yr female here for Chief Complaint Patient presents with ??? Follow-up, NOS Onset: Insidious onset of left low back, mid back and neck pain. Flare-up of pain. Review of systems: Denies numbness, tingling, or weakness in the extremities. Denies change in bowel/bladder function. Past medical, surgical, social, and family history has been reviewed. Objective: BP 110/73 Pulse 82 Ht 5' 1 (1.549 m) Wt 168 lb (76.204 kg) BMI 31.76 kg/m2 Estimated body mass index is 31.76 kg/(m^2) as calculated from the following: Height as of this encounter: 5' 1 (1.549 m). Weight as of this encounter: 168 lb (76.204 kg). Inspection: No bruising, [...] muscle documented in this encounter Care Teams Plastic Molding Operator Relationship Specialty Start Date End Date Padmini Park PA-C PCP - General Family Practice 04/05/12 01/19/16 documented as of this encounter
--- OUTSIDE RECORDS SUMMARY | 2022-03-07 11:25 | XMS_ITS | Encounter Summary ---
:1970 Author Organization [employer] Address [address] [place] [address] Care Team Providers Name Role Phone Padmini Park PA-C Primary Care Provider Encounter Details Date Type Department Care Team Description 09/11/2013 Imaging [facility] Thigh pain [address] [place], [place] [id number] Social History Tobacco Use Types Packs/Day Years [...] Name Priority Date/Time Associated Diagnosis Comme nts XR LUMBAR SPINE W Routine 09/11/2013 1:59 PM Thigh pain Resu lts for this OBLIQUES CDT procedure are i n the results section. documented in this encounter Results XR Lumbar Spine W Obliques (09/11/2013 1:59 PM CDT) Anatomical Region Laterality Modality Spine, L-Spine Other Specimen (Source) Anatomical Location Collection Method / Collectio n Time Received Time / Laterality Volume Impressions 09/11/2013 2:20 PM CDT IMPRESSION: ??Lumbosacral spine within normal limits. Narrative 09/11/2013 2:20 PM CDT COMPARISON: ??None. FINDINGS: ??No fracture or subluxation o f the vertebral bodies of the lumbosacral spine is identified. ??Vertebral disk space height and alignment appear normal. No pars defects are visualized. Procedure Note Eddie Boyce MD - 11/07/2015 COMPARISON: None. FINDINGS: No fracture or subluxation of the vertebral bodies of the lumbosacral spine is identified. Vertebral disk space height and alignment appear normal. No pars defects are visualized. IMPRESSION IMPRESSION: Lumbosacral spine within nor mal limits. Chirag Metzger PA-C RAD GD documented in this encounter Visit Diagnoses Diagnosis Thigh pain Pain in limb documented in this encounter Care Teams Comb Capper Relationship Specialty Start Date End Date Padmini Park PA-C PCP - General Family Practice 04/05/12 01/19/16 documented as of this encounter
--- OUTSIDE RECORDS SUMMARY | 2022-03-07 11:25 | XMS_ITS | Encounter Summary ---
:1970 Author Organization [employer] Address [address] [place] [address] Care Team Providers Name Role Phone Padmini Park PA-C Primary Care Provider Reason for Visit Reason Comments Appt. Needed Encounter Details Date Type Department Care Team Description 08/19/2013 Telephone Chirag Chopra PA-C Appt. Needed [address] [place] [address] [place] [address] [phone] (Wo rk) Social History Tobacco Use Types Packs/Day Years Used Date Smoking Tobacco: Never Smokeless Tobacco: Never Alcohol Use Standard Drinks/Week Comments Yes 0 (1 standard drink = 0.6 oz pure alcoho l) occasional Sex Assigned at Date Recorded Not on file documented as of this encounter Nursing Notes Chirag Metzger PA-C - 08/20/2013 2:03 PM CDT ok Karen Whittaker - 08/20/2013 1:57 PM CDT FYI: When patient was in clinic for her appointment she said she would call me when she found out her schedule. I have tried reaching her several times with no success. I have sent her a [employer] message with my phone number to call when she is ready to schedule. Karen Whittaker - 08/19/2013 2:36 PM CDT I have left a message for patient to call me at [phone] so that we can get her scheduled for a followup pelvic ultrasound. documented in this encounter Plan of Treatment Not on filedocumented as of this encounter Visit Diagnoses Not on filedocumented in this encounter Care Teams Sport Intern Relationship Specialty Start Date End Date Padmini Park PA-C PCP - General Family Practice 04/05/12 01/19/16 documented as of this encounter
--- OUTSIDE RECORDS SUMMARY | 2022-03-07 11:25 | XMS_ITS | Encounter Summary ---
:1970 Author Organization [employer] Address [address] [place] [address] Care Team Providers Name Role Phone Padmini Park PA-C Primary Care Provider Reason for Visit Reason Comments RECTAL PAIN Encounter Details Date Type Department Care Team Description 01/05/2013 Hospital Encounter [facility] Khai Lopes rticulitis of rectosigmoid (Primary Dx); Care Nikolay SDO Rectal pain [address] [address] [id number] Social History Tobacco Use Types Packs/Day Years Used Date Smoking Tobacco: Never Smokeless Tobacco: Never Alcohol Use Standard Drinks/Week Comments Yes 0 (1 standard drink = 0.6 oz pure alcoho l) occasional Sex Assigned at Date Recorded Not on file documented as of this encounter Last Filed Vital Signs Vital Sign Reading Time Taken Comments Blood Pressure 133/82 01/05/2013 11:34 AM CDT Pulse 71 01/05/2013 11:34 AM CDT Temperature 36.8 ??C (98.2 ??F) 01/05/2013 11:34 AM CDT Respiratory Rate 16 01/05/2013 11:34 AM CDT Oxygen Saturation - - Inhaled Oxygen Concentration - - Weight - - Height - - Body Mass Index - - documented in this encounter Medications at Time of Discharge Medication Sig Dispensed Refills Start Date End Date ciprofloxacin (aka CIPRO) Take 1 tablet by 20 tablet 0 12/1901/15/2013 tablet mouth 2 times daily for 10 days. cyclobenzaprine (AKA Take 1 tablet by 20 tablet 0 3 09/11/2013 FLEXERIL) 10 MG tablet mouth at bedtime as needed for Muscle spasms. DIAZEpam (AKA VALIUM) 5 Take 1 tablet by 12 tablet 0 201103/04/2014 MG tabletIndications: mouth every 8 hours Motion sickness as needed for Other (motion sickness). Diflorasone Diacet Emoll 1mg/mL SubQ 20 mL 1 09/20/2012 09/11/2013 Base (AKA APEXICON E) injection 3 times a 0.05 % cream day x 7 days, or until VIRK-free for 24 hrs HYDROcodone-acetaminophen take 1-2 q5-6hrs 18 tablet 0 12/1909/11/2013 (aka NORCO) 5-325 MG prn pain, no more tablet TABS than 8 in 24hrs ibuprofen (AKA MOTRIN) Take 1 tablet by 30 tablet 1 013 03/04/2014 800 MG tablet mouth 3 times daily. Ibuprofen-Diphenhydramine Take by mouth at 0 05/0 07/201212/05/2013 Cit (ADVIL PM) 200-38 MG bedtime as needed. metroNIDAZOLE (aka Take 1 tablet by 30 tablet 0 01/05/2013 09/11/2013 FLAGYL) tablet mouth 3 times daily. No alcohol ondansetron (AKA ZOFRAN) Take 1 tablet by 30 tablet 0 09/1709/17/2013 8 MG disintegrating mouth every 8 hours tabletIndications: Nausea as needed for alone Nausea or Vomiting. Dissolve tablet on tongue Oral Medication to dispose of 1 each 3 09/20/20122013 Containers syringes and needles rizatriptan (AKA MAXALT) Take 1 tablet by 10 tablet 12 08/1612/05/2013 10 MG tabletIndications: mouth as needed for Headache, migraine Migraine. May repeat in 2 hours if needed Syringe, Disposable, 3 ML use with DHE- 3cc 25 each 3 07/201209/11/2013 syringes with 1/2 needles 23-25G, filter needles if glass ampules topiramate (AKA TOPAMAX) Take 1 tablet by 90 tablet 4 06/2802/04/2014 100 MG tabletIndications: mouth nightly. Headache, migraine topiramate (AKA TOPAMAX) Take 1 tablet by 120 tablet 3 09/2009/11/2013 25 MG tabletIndications: mouth every Migraine, chronic, morning. without aura, Indications: intractable, with status MIGRAINE PREVENTION migrainosus Ascorbic Acid (VITAMIN C) Take 1,000 mg by 0 07/06/2016 1000 MG tablet mouth daily. Biotin 5000 MCG TABS 0 09/2018 Cholecalciferol (VITAMIN daily. 0 07/06/2016 D OR) Cyanocobalamin (VITAMIN 0 0 07/06/2016 B-12) 2500 MCG cyclobenzaprine (AKA Take 10 mg by mouth 0 07/06/2016 FLEXERIL) 10 MG tablet three times a day as needed. Multiple Vitamin 0 07/06/19 17 (MULTI-VITAMIN OR) Phentermine HCl (AKA Take 18.75 mg by 0 07/06/2016 ADIPEX-P) 37.5 MG tablet mouth daily before breakfast. rizatriptan (MAXALT) 10 Take 10 mg by mouth 0 07/06/2016 MG tablet once as needed. at onset of migraine. May repeat in 2 hr if needed up to 30mg in 24 hr & MAX use 5 days/month topiramate (AKA TOPAMAX) Take 25 mg by mouth 0 07/06/2016 25 MG tablet two times a day. documented as of this encounter ED Notes Nikolay Lopes DO - 01/05/2013 1:58 PM CDT ED Provider Notes signed by Nikolay Lopes DO at 01/08/13 1258 Author: Nikolay Lopes DO Service: (none) Author Type: Physician Filed: 01/08/13 1258 Note Time: 01/05/13 143 Status: Signed Labor Arbitrator: Nikolay Lopes DO (Physician) NAME: KEARA ROB MR#: [id number] CSN: [id number] AUTHENTICATING CLINICIAN: Nikolay Lopes DO CONFIRM #: [id number] LOC: 520 URGENT CARE PROGRESS NOTE DATE OF VISIT: 01/05/2013 : 1970 PRIMARY CARE PROVIDER: Chirag Metzger PA-C. CHIEF COMPLAINT: This patient complains of rectal pain. She 1st noticed it about 8 months to a year ago. She had an episode that lasted 4-6 hours and it resolved. She had it a second time this year, it lasted for about3 days. 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 Medeiros did an ultrasound to the area and thought there may be a cyst between her vagina and rectal area. Her pain returned back on the end of November of this year. She saw Savannah Irvin PA-C, who ordered a CT scan and it showed evidence ofdiverticulitis, and reading the report it shows that there was mild early diverticulitis involving the proximal sigmoid colon. No evidence of abscesses or masses were seen. She states this pain today feels similar. She denies any bloody or black stools. She denies constipation, diarrhea. She denies fever or chills. She denies abdominal pain, kidney pain. ALLERGIES: None. MEDICATIONS: Reviewed on Epic. PAST MEDICAL HISTORY: She has a history of uterine fibroids, psychogenic syncope, migraine headaches, diverticulitis. PAST SURGICAL HISTORY: She has had a hysterectomy, 2 C-sections, and a breast reduction. SOCIAL HISTORY: She does not smoke. She occasionally drinks alcohol. PHYSICAL EXAM: VITAL SIGNS: Blood pressure 133/82, pulse 72, respirations 16, temperature 98.2. She rates her pain as 7/10, a constant throbbing pain. GENERAL: She is awake, alert, nontoxic, well hydrated, and afebrile. She is pleasant, has excellent mentation. She seems to be in no acute distress. SKIN: Warm and dry without rash, petechiae, or purpura. LUNGS: Clear to auscultation without wheezes, rales, or rhonchi. Respirations are unlabored. HEART: Regular rate and rhythm without clicks, rubs, or murmurs. ABDOMEN: Flat, soft, supple. She had tenderness in the suprapubic area, left lower quadrant, and left paraumbilical area with a with a little bit of guarding. No rebound, rigidity. Bowel sounds were present. RECTAL: No rectal tenderness. There is some soft brown stool in the rectum. There were no rectal masses or hemorrhoids. DIAGNOSTICS: CBC showed a white count of 7900, hemoglobin was 11.5, this was down from 13.1 back on 12/16/2012. ASSESSMENT: 1. Diverticulitis of the rectosigmoid area. 2. Rectal pain secondary to #1. TREATMENT/CLINICAL COURSE/MEDICAL DECISION MAKING: I told the patient that I feel she has diverticulitis. She just had a recent bout of it in the proximal sigmoid colon. This certainly can cause rectal pain, and she had rectal pain with the last bout. I am placing her on Cipro 500 mg 20 tablets 1 b.i.d. until all taken, Flagyl 500 mg 30 tablets 1 t.i.d. I warned her not to drink any alcohol while on it and for 2 days thereafter, as it will make her very ill. I told her that her hemoglobin was a little bit lower than it was in November. I would like her to recheck with her doctor sometime in the next couple weeks concerning this and to recheck it. I have given her instructions to go immediately to emergency department for fever, worsening pain/condition or any concerns. Recheck with Chirag Metzger or [employer]wia Medeiros if not improved in 5 days. I would like her to see Dr. Medeiros concerning a possible colonoscopy to make sure there is nothing else going on. I told her that sometimes diverticulitis can be a sign of colon cancer. She stated thatshe will talk to Dr. Medeiros. I also gave her a prescription for some [place] 5 mg 18 tablets, 1 or 2 every 5-6 hours p.r.n. pain. She was discharged to home in stable condition. LSS:MEDQ C: CONFIRM #: [id number] Charissa Larsen - 01/05/2013 1:[address] Lopes with rectal exam. documented in this encounter Miscellaneous Notes Medication History - Benedict Amaya MD - 01/05/2013 1:47 PM CDT INPATIENT MEDS Encounter Date: 01/05/13 ciprofloxacin (CIPRO) 500 mg tablet Start Date:01/05/13, End Date:01/15/13, Frequency:2 TIMES DAILY *No Administrations Recorded metroNIDAZOLE (FLAGYL) 500 mg tablet Start Date:01/05/13, End Date:09/11/13, Frequency:3 TIMES DAILY *No Administrations Recorded HYDROcodone-acetaminophen (NORCO) 5-325 mg per tablet Start Date:01/05/13, End Date:09/11/13, Frequency:- *No Administrations Recorded documented in this encounter Plan of Treatment Not on filedocumented as of this encounter Procedures Procedure Name Priority Date/Time Associated Diagnosis Comme nts COMPLETE BLOOD STAT 01/05/2013 1:17 PM Rectal pain Results for this COUNT-NO DIFF CDT procedure are in the results section. documented in this encounter Results (ABNORMAL) Complete Blood Count-No Diff (01/05/2013 1:17 PM CDT) [facility] gist Method Time Signature White Blood Cell 7.9 3.8 - HP CONVERSION Count 11.0 k/cmm Red Blood Cell 3.89 3.70 - HP CONVERSION Count 5.20 m/cmm Hemoglobin 11.5 (L) 11.8 - HP CONVERSION 15.5 g/dL Hematocrit 36.1 35.0 - HP CONVERSION 46.0 % Mean Corpuscular 92.7 80.0 - HP CONVERSION Volume 100.0 fL RDW 12.6 11.0 - HP CONVERSION 15.0 % Platelet Count 265 140 - 450 HP CONVERSION k/cmm Specimen Anatomical Collection Method Collection Time Receive d Time (Source) Location / / Volume Laterality 01/05/2013 1:17 PM 3 1:17 CDT PM CDT Narrative HP CONVERSION - 01/05/2013 1:24 PM CDT Performed at [facility], [address] [place] [address] Nikolay Lopes DO LAB_1 Performing Organization Address City/State/ZIP Code Phon e Number HP CONVERSION documented in this encounter Visit Diagnoses Diagnosis Diverticulitis of rectosigmoid - Primary Diverticulitis of colon (without mention of hemorrhage) Rectal pain Anal or rectal pain Triage Assessment Note - Perlita Smiley RN - 01/05/2013 11:31 AM CDT Has had an ultrasound for pain approximately 6 mths ago. Pain has returned for one week. Throbbing sensation. History of diverticulitis and had work up done here. documented in this encounter Care Teams Punchboard Stuffer Relationship Specialty Start Date End Date Padmini Park PA-C PCP - General Family Practice 04/05/12 01/19/16 documented as of this encounter
--- OUTSIDE RECORDS SUMMARY | 2022-03-07 11:25 | XMS_ITS | Encounter Summary ---
:1970 Author Organization [employer] Address [address] [place] [address] Care Team Providers Name Role Phone Padmini Park PA-C Primary Care Provider Encounter Details Date Type Department Care Team Description 09/11/2013 Lab Visit [facility] Thigh pain [address] [place], [place] [id number] Social History Tobacco Use Types Packs/Day Years Used Date Smoking Tobacco: Never Smokeless Tobacco: Never Alcohol Use Standard Drinks/Week Comments Yes 0 (1 standard drink = 0.6 oz pure alcoho l) occasional Sex Assigned at Date Recorded Not on file documented as of this encounter Plan of Treatment Not on filedocumented as of this encounter Procedures Procedure Name Priority Date/Time Associated Comments Diagnosis TSH AND FREE T4 (FRT4 Routine 09/11/2013 1:52 PM Thigh pain Results for this IF TSH ABNORM) CDT procedure are in the results section. CREATININE / GFR Routine 09/11/2013 1:52 PM Thigh pain Resul ts for this CDT procedure are i n the results section. COMPLETE BLOOD Routine 09/11/2013 1:52 PM Thigh pain Results for this COUNT-W/DIFF CDT procedure are i n the results section. DIFFERENTIAL Routine 09/11/2013 1:52 PM Results f or this CDT procedure are i n the results section. ELECTROLYTE PANEL Routine 09/11/2013 1:52 PM Thigh pain Resu lts for this CDT procedure are i n the results section. CK, TOTAL Routine 09/11/2013 1:52 PM Thigh pain Results f or this CDT procedure are i n the results section. CALCIUM Routine 09/11/2013 1:52 PM Thigh pain Results f or this CDT procedure are i n the results section. BUN Routine 09/11/2013 1:52 PM Thigh pain Results f or this CDT procedure are i n the results section. ESR Routine 09/11/2013 1:52 PM Thigh pain Results f or this CDT procedure are i n the results section. documented in this encounter Results Differential (09/11/2013 1:52 PM CDT) athologist Signature Absolute 5.3 1.8 - 8.0 HP CONVERSION Neutrophils Absolute 3.9 1.1 - 4.0 HP CONVERSION Lymphocytes Absolute 0.5 0.2 - 0.8 HP CONVERSION Monocytes Absolute 0.1 0.0 - 0.5 HP CONVERSION Eosinophils Absolute 0.0 0.0 - 0.2 HP CONVERSION Basophils Specimen Anatomical Collection Method Collection Time Receive d Time (Source) Location / / Volume Laterality 09/11/2013 1:52 PM 4 1:52 CDT PM CDT Narrative HP CONVERSION - 09/11/2013 2:18 PM CDT Performed at [facility], [address] [place] [address] Chirag Metzger PA-C LAB_1 Performing Organization Address City/State/ZIP Code Phon e Number HP CONVERSION Creatinine / GFR (09/11/2013 1:52 PM CDT) athologist Signature Creatinine 0.7 0.4 - 1.3 HP CONVERSION Serum mg/dL Est GFR >60 >60 HP CONVERSION Am Est GFR Non-Afr >60 >60 HP CONVERSION Am Comment: Normal>60, moderate decrease 30 - 59, se ita decrease 15 - 29, renal failure <15 mL/min/1.73 m2 NOTE: ??Choose the eGFR result above dontae ropriate for the race of the patient. Specimen Anatomical Collection Method Collection Time Receive d Time (Source) Location / / Volume Laterality 09/11/2013 1:52 PM 4 4:46 CDT PM CDT Narrative HP CONVERSION - 09/11/2013 7:01 PM CDT Performed at [facility], [address] [place] [address] Chirag Metzger PA-C LAB_1 Performing Organization Address [facility] Phon e Number HP CONVERSION BUN (09/11/2013 1:52 PM CDT) athologist Signature Blood Urea <10 5 - 26 HP CONVERSION Nitrogen mg/dL Specimen Anatomical Collection Method Collection Time Receive d Time (Source) Location / / Volume Laterality 09/11/2013 1:52 PM 4 4:46 CDT PM CDT Narrative HP CONVERSION - 09/11/2013 7:01 PM CDT Performed at [facility], [address] [place] [address] Chirag Metzger PA-C LAB_1 Performing Organization Address [facility] Phon e Number HP CONVERSION Electrolyte Panel (09/11/2013 1:52 PM CDT) athologist Signature Sodium 140 137 - 147 HP CONVERSION Potassium 3.8 3.5 - 5.2 HP CONVERSION Chloride 103 98 - 110 HP CONVERSION Bicarbonate 28 23 - 33 HP CONVERSION mmol/L Specimen Anatomical Collection Method Collection Time Receive d Time (Source) Location / / Volume Laterality 09/11/2013 1:52 PM 4 4:46 CDT PM CDT Narrative HP CONVERSION - 09/11/2013 7:01 PM CDT Performed at [facility], [address] [place] [address] Chirag Metzger PA-C LAB_1 Performing Organization Address [facility] Phon e Number HP CONVERSION Calcium (09/11/2013 1:52 PM CDT) athologist Signature Calcium 9.1 8.5 - 10.5 HP CONVERSION mg/dL Specimen Anatomical Collection Method Collection Time Receive d Time (Source) Location / / Volume Laterality 09/11/2013 1:52 PM 4 4:46 CDT PM CDT Narrative HP CONVERSION - 09/11/2013 7:01 PM CDT Performed at [facility], [address] [place] [address] Chirag Metzger PA-C LAB_1 Performing Organization Address City/[facility] Phon e Number HP CONVERSION TSH AND FREE T4 (FRT4 IF TSH ABNORM) (09/11/2013 1:52 PM CDT) athologist Signature Thyroid 1.01 0.20 - HP CONVERSION Stimulating 4.50 Hormone Specimen Anatomical Collection Method Collection Time Receive d Time (Source) Location / / Volume Laterality 09/11/2013 1:52 PM 4 6:32 CDT PM CDT Chirag Metzger PA-C LAB_1 Performing Organization Address City/[facility] Phon e Number HP CONVERSION CK, Total (09/11/2013 1:52 PM CDT) athologist Signature Creatine Kinase 78 0 - 225 HP CONVERSION U/L Specimen Anatomical Collection Method Collection Time Receive d Time (Source) Location / / Volume Laterality 09/11/2013 1:52 PM 4 4:46 CDT PM CDT Narrative HP CONVERSION - 09/11/2013 7:01 PM CDT Performed at [facility], [address] [place] [address] Chirag MOREAU-C LAB_1 Performing Organization Address [facility] Phon e Number HP CONVERSION ESR (09/11/2013 1:52 PM CDT) [facility] Method Time Signature Sedimentation Rate 11 0 - 20 HP CONVERSI ON Specimen Anatomical Collection Method Collection Time Receive d Time (Source) Location / / Volume Laterality 09/11/2013 1:52 PM 4 1:52 CDT PM CDT Narrative HP CONVERSION - 09/11/2013 3:39 PM CDT Performed at [facility], [address] [place] [address] Chirag Metzger PA-C LAB_1 Performing Organization Address [facility] Phon e Number HP CONVERSION Complete Blood Count W/Diff (09/11/2013 1:52 PM CDT) athologist Signature White Blood Cell 9.8 3.8 - 11.0 HP CONVERSIO N Count Red Blood Cell 4.19 3.70 - HP CONVERSION Count 5.20 Hemoglobin 12.7 11.8 - HP CONVERSION 15.5 g/dL Hematocrit 37.6 35.0 - HP CONVERSION 46.0 % Mean Corpuscular 89.7 80.0 - HP CONVERSION Volume 100.0 fL RDW 11.7 11.0 - HP CONVERSION 15.0 % Platelet Count 273 140 - 450 HP CONVERSION Specimen Anatomical Collection Method Collection Time Receive d Time (Source) Location / / Volume Laterality 09/11/2013 1:52 PM 4 1:52 CDT PM CDT Narrative HP CONVERSION - 09/11/2013 2:18 PM CDT Performed at [facility], [address] [place] [address] Chirag Metzger PA-C LAB_1 Performing Organization Address City/State/ZIP Code Phon e Number HP CONVERSION documented in this encounter Visit Diagnoses Diagnosis Thigh pain Pain in limb documented in this encounter Care Teams School Bus Driver Relationship Specialty Start Date End Date Padmini Park PA-C PCP - General Family Practice 04/05/12 01/19/16 documented as of this encounter
--- OUTSIDE RECORDS SUMMARY | 2022-03-07 11:25 | XMS_ITS | Encounter Summary ---
:1970 Author Organization [email or web address] Address [address] [place] [address] Care Team Providers Name Role Phone Padmini Park PA-C Primary Care Provider Reason for Visit Reason Comments Follow-up, NOS Encounter Details Date Type Department Care Team Description 03/26/2013 Office Visit [facility], Nonallopathic lesion of sacr al region, not elsewhere classified (Primary Dx); [address] [facility] Enoc Lazaro DC Nonallopathic lesion of thor acic region, not elsewhere classified; [facility] [phone] Nonallopathic lesion of cerv ical region, not elsewhere classified; [phone] Spasm of muscle Social History Tobacco Use Types Packs/Day Years Used Date Smoking Tobacco: Never Smokeless Tobacco: Never Alcohol Use Standard Drinks/Week Comments Yes 0 (1 standard drink = 0.6 oz pure alcoho l) occasional Sex Assigned at Date Recorded Not on file documented as of this encounter Last Filed Vital Signs Vital Sign Reading Time Taken Comments Blood Pressure 127/87 03/26/2013 2:21 PM INTERNAL CONTROL SPECIALIST Pulse 64 03/26/2013 2:21 PM INTERNAL CONTROL SPECIALIST Temperature - - Respiratory Rate 12 03/26/2013 2:21 PM INTERNAL CONTROL SPECIALIST Oxygen Saturation - - Inhaled Oxygen Concentration - - Weight 81.2 kg (179 lb) 03/26/2013 2:21 PM INTERNAL CONTROL SPECIALIST Height - - Body Mass Index 33.82 09/20/2012 12:20 PM CDT documented in this encounter Progress Notes Enoc Blanca, MIAN - 03/26/2013 2:22 PM CST Subjective Keara Cuellar is 43 yr female here for Chief Complaint Patient presents with ??? Follow-up, NOS Onset: Insidious onset of left low back, mid back and neck pain that flared up with in the last few days. Review of systems: Denies numbness, tingling, or weakness in the extremities. Denies change in bowel/bladder function. Past medical, surgical, social, and family history has been reviewed. Objective: BP 127/87 Pulse 64 Resp 12 Wt 179 lb (81.194 kg) BMI 33.54 kg/m2 Estimated body mass index is 33.54 kg/(m^2) as calculated from the following: Height as of 07/18/12: 5' 1.25 (1.556 m). Weight as of this encounter: 179 lb (81.194 kg). Inspection: No bruising, swelling, erythema is [...] REHABILITATE THE THORACIC REGIONS. Enoc Blanca DC RNAL CONTROL SPECIALIST documented in this encounter Plan of Treatment Not on filedocumented as of this encounter Visit Diagnoses Diagnosis Nonallopathic lesion of sacral region, n ot elsewhere classified - Primary Nonallopathic lesion of thoracic region, not elsewhere classified Nonallopathic lesion of cervical region, not elsewhere classified Spasm of muscle documented in this encounter Care Teams Van Owner Operator Relationship Specialty Start Date End Date Padmini Park PA-C PCP - General Family Practice 04/05/12 01/19/16 documented as of this encounter
--- OUTSIDE RECORDS SUMMARY | 2022-03-07 11:25 | XMS_ITS | Encounter Summary ---
:1970 Author Organization [facility] Address [address] [place] [address] Care Team Providers Name Role Phone Padmini Park PA-C Primary Care Provider Reason for Visit Reason Comments Letter Encounter Details Date Type Department Care Team Description 01/08/2013 Notes/Orders [facility] [address] Ruy Franco RN Neurology [address] [facility] [address] [place], [place] [id number] [place] [id number] Social History Tobacco Use Types Packs/Day Years Used Date Smoking Tobacco: Never Smokeless Tobacco: Never Alcohol Use Standard Drinks/Week Comments Yes 0 (1 standard drink = 0.6 oz pure alcoho l) occasional Sex Assigned at Date Recorded Not on file documented as of this encounter Progress Notes Madison Franco RN - 01/08/2013 9:57 AM CDT pt called and requested the letter from 09/20/2012 that was sent to her former employer be mailed to her home address, she is no longer working and collecting unemployment. I did tell pt that Dr. Victor does NOT support unemployment or disability. 09/20/12 - 01/08/13 RE: Keara Cuellar : 68 MR#: [id number] To whom it may concern: Per request of Ms. Polo I am providing you with a brief summary of the patients neurological condition. I am treating Ms. Cuellar for chronic migraine headaches at the Neurology department at [facility]. With a comprehensive approach to headache management it is anticipated that the patients headache disorder be manageable, however, at times they may fail to respond to medication therapy and progress into refractory headache. Patient may be allowed time for treatment with medication, rest and relaxation in a quiet and dark environment. Among her migraine trigger is working behind computer and excessive lighting, so if she could be accommodated by adjusting font size to her standard to minimize eye strain and optimize the overhead fluorescent light. Sincerely, Dominique Victor MD Department of Neurosciences documented in this encounter Plan of Treatment Not on filedocumented as of this encounter Visit Diagnoses Not on filedocumented in this encounter Care Teams Senior Site Manager Relationship Specialty Start Date End Date Padmini Park PA-C PCP - General Family Practice 04/05/12 01/19/16 documented as of this encounter
--- OUTSIDE RECORDS SUMMARY | 2022-03-07 11:25 | XMS_ITS | Encounter Summary ---
:1970 Author Organization [employer] Address [address] [place] [address] Care Team Providers Name Role Phone Padmini Park PA-C Primary Care Provider Reason for Visit Reason Comments Cough Encounter Details Date Type Department Care Team Description 07/30/2013 Office Visit [facility], Persistent cough (Primary Dx ); [address] PA-C Breast cancer screening; [facility] [phone] Ovarian cyst [phone] [facility] [phone] Social History Tobacco Use Types Packs/Day Years Used Date Smoking Tobacco: Never Smokeless Tobacco: Never Alcohol Use Standard Drinks/Week Comments Yes 0 (1 standard drink = 0.6 oz pure alcoho l) occasional Sex Assigned at Date Recorded Not on file documented as of this encounter Last Filed Vital Signs Vital Sign Reading Time Taken Comments Blood Pressure 110/70 07/30/2013 3:34 PM CDT Pulse 64 07/30/2013 3:34 PM CDT Temperature 36.8 ??C (98.2 ??F) 07/30/2013 3:34 PM CDT Respiratory Rate - - Oxygen Saturation - - Inhaled Oxygen Concentration - - Weight - - Height - - Body Mass Index - - documented in this encounter Patient Instructions Patient InstructionsChirag Metzger PA-C - 07/30/2013 3:50 PM CDT Please call the OB-RADAR SIGNAL PROCESSING ENGINEER dept. at [phone] to schedule your appointment. documented in this encounter Progress Notes Chirag Metzger PA-C - 07/30/2013 4:04 PM CDT SUBJECTIVE: This 43 y.o. female presents today with the following concern(s): Cough Got a respiratory infection 1 month ago, including cough, body aches, fatigue, and runny nose. She had gone to urgent care during that acute infection, and was diagnosed with a virus. Since then, most of her symptoms have gone, but persistent coughing jags at this point. Typical triggers include cold exposure, laughing, and strong smells. No fevers at this point. No shortness of breath, no wheezing, no chest pain. She was using Robitussin during the active part of the illness. No history of asthma, though chart review shows she has been treated for post-infectious cough in the past with inhaled corticosteroid/long-acting beta agonist in the past. She was seen at an in [place] in early June for what she thought was a recurrence of sigmoid diverticulitis; however, her CT scan was negative for diverticulitis at this most recent visit, positive for ovarian cyst. She believes it was her left ovary. She was given pain medication and advised to follow-up with editor department. She has not yet consulted with the specialist. For the most part, her pain is gone; however, early in July, she had a milder recurrence and took pain medication for a coupleof days. Past Medical History: Patient Active Problem List Diagnosis ??? Fibroid uterus ??? Syncope, psychogenic ??? Headache, migraine ??? Migraine, chronic, without aura, intractable, with status migrainosus Adverse Drug Reactions: has No Known Allergies. Medications: has a current medication list which includes the following prescription(s): cyclobenzaprine, diazepam, dihydroergotamine, hydrocodone- acetaminophen, ibuprofen, ibuprofen-diphenhydramine, ketoconazole, metronidazole, ondansetron, oral medication containers, rizatriptan, syringe (disposable), topiramate, and topiramate. Tobacco History: reports that she has never smoked. She has never used smokeless tobacco. Alcohol History: reports that she drinks about 1.8 ounces of alcohol per week. Marital History: OBJECTIVE: Vital Signs: BP 110/70 Pulse 64 Temp(Src) 98.2 ??F (36.8 ??C) General appearance: alert, cooperative, no distress, appears stated age, Eyes: conjunctivae/corneas clear. PERRL, EOM's intact. Fundi benign, Ears: normal TM's and external ear canals AU, Nose: Nares normal. Septum midline. Mucosa normal. No drainage., Throat: lips, mucosa, and tongue normal; teeth and gums normal, Neck: supple, symmetrical, trachea midline, no adenopathy and thyroid: not enlarged, symmetric, no tenderness/mass/nodules, Lungs: clear to auscultation bilaterally and Heart: regular rate and rhythm, S1, S2 normal, no murmur, click, rub or gallop ASSESSMENT/PLAN: Keara was seen today for cough. Diagnoses and associated orders for this visit: Persistent cough - fluticasone-salmeterol (ADVAIR) 250-50 mcg/dose diskus inhaler; Inhale 1 puff every 12 hours for 14 days. Rinse mouth/Gargle after use - Discussed the purpose of the medication, how to use, potential benefits, and potential adverse effects. Return to clinic for symptom persistence. Breast cancer screening - [facility] Mammogram Screening Bilateral W Cad; Future Ovarian cyst - US Pelvic W/ Ev (Standard); Future - Ambulatory referral to Obstetrics / Gynecology; Future She will schedule her pelvic ultrasound in a couple of weeks, and then see editor department in consult after to discuss the painful ovarian cyst she had been diagnosed with in [place] early Jun 2013. The patient was discharged ambulatory and in stable condition. documented in this encounter Plan of Treatment Not on filedocumented as of this encounter Visit Diagnoses Diagnosis Persistent cough - Primary Cough Breast cancer screening Breast screening, unspecified Ovarian cyst Other and unspecified ovarian cyst documented in this encounter Care Teams Retail Area Manager Relationship Specialty Start Date End Date Padmini Park PA-C PCP - General Family Practice 04/05/12 01/19/16 documented as of this encounter
--- OUTSIDE RECORDS SUMMARY | 2022-03-07 11:25 | XMS_ITS | Encounter Summary ---
:1970 Author Organization [employer] Address [address] [place] [address] Care Team Providers Name Role Phone Padmini Park PA-C Primary Care Provider Reason for Visit Reason Comments LEG PAIN Encounter Details Date Type Department Care Team Description 09/11/2013 Office Visit [facility] Chirag Metzger, Thigh pain (Primary [address] [place] Dx) [facility] [id number] [address] [phone] [facility] [phone] Social History Tobacco Use Types Packs/Day Years Used Date Smoking Tobacco: Never Smokeless Tobacco: Never Alcohol Use Standard Drinks/Week Comments Yes 0 (1 standard drink = 0.6 oz pure alcoho l) occasional Sex Assigned at Date Recorded Not on file documented as of this encounter Last Filed Vital Signs Vital Sign Reading Time Taken Comments Blood Pressure 134/86 09/11/2013 1:28 PM CDT Pulse 76 09/11/2013 1:28 PM CDT Temperature - - Respiratory Rate - - Oxygen Saturation - - Inhaled Oxygen Concentration - - Weight - - Height - - Body Mass Index - - documented in this encounter Progress Notes Chirag Metzger PA-C - 09/18/2013 9:38 AM CDT SUBJECTIVE: This 43 y.o. female presents today with the following concern(s): Leg pain She has had anterior, bilateral thigh pain for about 5 days now. This is something she has gotten about once a year for several years. It typically lasts only a couple of days, and is manageable with OTC NSAIDs until it resolves on its own. She has never worried too much about it because it is manageable, self- limited, and short-lasting; however, this time it is persisting. No associated back pain. No muscle weakness. No radiatio of the pain into the groin or down into the lower legs. No injury. No color or temperature change of her skin. Past Medical History: Patient Active Problem List Diagnosis ??? Fibroid uterus ??? Syncope, psychogenic ??? Headache, migraine ??? Migraine, chronic, without aura, intractable, with status migrainosus Adverse Drug Reactions: has No Known Allergies. Medications: has a current medication list which includes the following prescription(s): diazepam, ibuprofen, ibuprofen-diphenhydramine, ondansetron, rizatriptan, and topiramate. Tobacco History: reports that she has never smoked. She has never used smokeless tobacco. Alcohol History: reports that she drinks about 1.8 ounces of alcohol per week. Marital History: OBJECTIVE: Vital Signs: BP 134/86 Pulse 76 General appearance: alert, cooperative, no distress, appears stated age, Neck: supple, symmetrical, trachea midline, no adenopathy, thyroid: not enlarged, symmetric, no tenderness/mass/nodules and no carotid bruit, Back: symmetric, no curvature. ROM normal. No CVA tenderness., Lungs: clear to auscultation bilaterally, Heart: regular rate and rhythm, S1, S2 normal, no murmur, click, rub or gallop, Extremities: extremities normal, atraumatic, no cyanosis or edema, Pulses: 2+ and symmetric, Skin: Skin color, texture, turgor normal. No rashes or lesions and Neurologic: Alert and oriented X 3, normal strength and tone. Normal symmetric reflexes. Normal coordination and gait ASSESSMENT/PLAN: Keara was seen today for leg pain. Diagnoses and associated orders for this visit: Thigh pain, bilateral - XR Lumbosacral With Obliques 4+ Views; Future - Complete Blood Count W/Diff; Future - Sedimentation Rate; Future - CPK; Future - TSH And Free T4 (FRT4 If TSH Abnorm); Future - Calcium; Future - Electrolytes (NA, K, CL, Bicarb); Future - BUN; Future - Creatinine; Future I will notify her with results as soon as available. She will let me know if her symptoms do not resolve. The patient was discharged ambulatory and in stable condition. documented in this encounter Plan of Treatment Not on filedocumented as of this encounter Visit Diagnoses Diagnosis Thigh pain - Primary Pain in limb documented in this encounter Care Teams Education Intern Relationship Specialty Start Date End Date Padmini Park PA-C PCP - General Family Practice 04/05/12 01/19/16 documented as of this encounter
--- OUTSIDE RECORDS SUMMARY | 2022-03-07 11:25 | XMS_ITS | Encounter Summary ---
:1970 Author Organization [facility] Address [address] [place] [address] Care Team Providers Name Role Phone Padmini Park PA-C Primary Care Provider Reason for Visit Reason Comments NECK PAIN BACK PAIN Encounter Details Date Type Department Care Team Description 06/10/2013 Office Visit [facility], Nonallopathic lesion of sacr al region, not elsewhere classified (Primary Dx); [address] Enoc Lazaro DC Nonallopathic lesion of thor acic region, not elsewhere classified; [place] [id number] Nonallopathic lesion of cerv ical region, not elsewhere classified; [phone] Spasm of muscle Social History Tobacco Use Types Packs/Day Years Used Date Smoking Tobacco: Never Smokeless Tobacco: Never Alcohol Use Standard Drinks/Week Comments Yes 0 (1 standard drink = 0.6 oz pure alcoho l) occasional Sex Assigned at Date Recorded Not on file documented as of this encounter Progress Notes Enoc Blanca DC - 06/10/2013 10:22 AM CST Subjective Keara Cuellar is 43 yr female here for Chief Complaint Patient presents with ??? NECK PAIN ??? BACK PAIN Onset: Insidious onset of left low back, mid back and neck pain that flared up with in the last weekfrom traveling. Review of systems: Denies numbness, tingling, or weakness in the extremities. Denies change in bowel/bladder function. Past medical, surgical, social, and family history has been reviewed. Objective: There were no vitals taken for this visit. Estimated body mass index is 33.54 kg/(m^2) as calculated from the following: Height as of 07/18/12: 5' 1.25 (1.556 m). Weight as of 03/26/13: 179 lb (81.194 kg). Inspection: No bruising, [...] REHABILITATE THE THORACIC REGIONS. Enoc Blanca DC ON LETTERING MACHINE OPERATOR documented in this encounter Plan of Treatment Not on filedocumented as of this encounter Visit Diagnoses Diagnosis Nonallopathic lesion of sacral region, n ot elsewhere classified - Primary Nonallopathic lesion of thoracic region, not elsewhere classified Nonallopathic lesion of cervical region, not elsewhere classified Spasm of muscle documented in this encounter Care Teams Residential Supervisor Relationship Specialty Start Date End Date Padmini Park PA-C PCP - General Family Practice 04/05/12 01/19/16 documented as of this encounter
--- OUTSIDE RECORDS SUMMARY | 2022-03-07 11:26 | XMS_ITS | Encounter Summary ---
:1970 Author Organization [email or web address] Address [address] [place] [address] Care Team Providers Name Role Phone Padmini Park PA-C Primary Care Provider Reason for Visit Reason Comments Eye Problem Encounter Details Date Type Department Care Team Description 12/04/2012 Office Visit [facility] Conjunctiv itis (Primary Dx); Olivia Dick MD URI (upper respiratory infection) [address] [place] [address] [place] [id number] Social History Tobacco Use Types Packs/Day Years Used Date Smoking Tobacco: Never Smokeless Tobacco: Never Alcohol Use Standard Drinks/Week Comments Yes 0 (1 standard drink = 0.6 oz pure alcoho l) occasional Sex Assigned at Date Recorded Not on file documented as of this encounter Last Filed Vital Signs Vital Sign Reading Time Taken Comments Blood Pressure 119/70 12/04/2012 10:21 AM CDT Pulse 68 12/04/2012 10:21 AM CDT Temperature - - Respiratory Rate - - Oxygen Saturation - - Inhaled Oxygen Concentration - - Weight - - Height - - Body Mass Index - - documented in this encounter Patient Instructions Patient InstructionsAnat Zapata RN - 12/04/2012 10:59 AM CDT Thank you for enrolling in [employer]. Please follow the instructions below to securely access your online medical record. [employer] allows you to send messages to your doctor, view your test results, renewyour prescriptions, schedule appointments, and more. How Do I Sign Up? 1. In your Internet browser, go to: [email or web address] 2. Click on the Enter Activation Code link under the New User? section. You will see the New Member Sign Up page. 3. Enter your [facility] Activation Code exactly as it appears below. You will not need to use this code after you???ve completed the sign-up process. If you do not sign up before the expiration date, youmust request a new code. [facility] Activation Code: [email or web address] Expires: 01/03/2013 10:59 AM 4. Enter the last four digits of your Social Security Number ([id number]) and Date of (mm/dd/yyyy) as indicated and click Next. You will be taken to the next sign-up page. 5. Create a [facility] ID. This will be your [employer] [facility] login ID and cannot be changed, so think of one that is secure and easy to remember. 6. Create a [facility] password. You can change your password at any time. 7. Enter your Security Question and Answer. This can be used at a later time if you forget your password. Click Next. 8. Enter your e-mail address. You will receive e-mail notification when new information is availablein [facility]. 9. Click Sign In. You can now view your medical record. Additional Information If you have questions, you can call [phone] to talk to our [employer] staff. Remember, [employer] is NOT to be used for urgent needs. For medical emergencies, dial 911. documented in this encounter Progress Notes Romario Crump MD - 12/04/2012 12:10 PM CDT Please note that the medical documentation below was created with voice recognition software and maycontain typographic errors. Chief Complaint Patient presents with ??? Eye Problem dry, crusty x 1 day SUBJECTIVE : Keara Cuellar is an 42 y.o. female who presents today complaining of some redness in her eyes bilaterally. She says last night this started. She will compare 3:30 this morning and had some crusting of her eyelashes bilaterally. She had one episode of some whitish drainage from the right eye this morning but has not had any drainage since. They're slightly itchy. [facility] complaining of achiness a dry cough and a sore throat. She was tested negative for strep. She had a presumed viral infection but was told she had tonsillitis and given a prescription for Keflex. She took one dose of the Keflex and had nausea and it made her feel better and she did not takeanymore. She's been taking Mucinex which does help. Her daughter has been sick with cold symptoms. She has a nephew and a sister who have also been sick. Her sister actually recently had strep throat. Patient Active Problem List Diagnosis ??? Fibroid uterus ??? Syncope, psychogenic ??? Headache, migraine ??? Migraine, chronic, without aura, intractable, with status migrainosus Current Outpatient Prescriptions on File Prior to Visit Medication Sig Dispense Refill ??? cephALEXin (KEFLEX) 500 mg capsule Take 1 capsule by mouth 3 times daily. 30 capsule 0 ??? cyclobenzaprine (FLEXERIL) 10 mg tablet Take 1 tablet by mouth at bedtime as needed for Muscle spasms. 20 tablet 0 ??? diazepam (VALIUM) 5 mg tablet Take 1 tablet by mouth every 8 hours as needed for Other (motion sickness). 12 tablet 0 ??? dihydroergotamine (D.H.E. 45) 1 mg/mL injection 1mg/mL SubQ injection 3 times a day x 7 days, oruntil VIRK-free for 24 hrs 20 mL 1 ??? guaiFENesin-codeine (GUAIFENESIN AC) 10-100 mg/5 mL liquid Take 5 mLs by mouth every 4 hours as needed for Cough. 180 mL 0 ??? ibuprofen (MOTRIN) 200 mg tablet Take 1-2 tablets by mouth 3 times daily as needed. 200 13 ??? Ibuprofen-Diphenhydramine (MOTRIN PM) 200-38 mg Tab Take by mouth at bedtime as needed. ??? maalox-viscous lidocaine-diphenhydramine (MAGIC MOUTHWASH) oral suspension Swish and spit 5 mLs as needed for Pain. Contains 1:1:1 ratio of Maalox + viscous lidocaine 2% + diphenhydramine oral solution 240 mL 0 ??? ondansetron (ZOFRAN-ODT) 8 mg disintegrating tablet Take 1 tablet by mouth every 8 hours as needed for Nausea or Vomiting. Dissolve tablet on tongue 30 tablet 0 ??? Oral Medication Containers (SHARPS CONTAINER) [facility] to dispose of syringes and needles 1 each 3 ??? predniSONE (DELTASONE) 10 mg tablet Take with food. 3 tabs BID x2d, 2 tabs BID x2d, 1 tab BID x2d, done. 26 tablet 0 ??? : rizatriptan (MAXALT) 10 mg tablet Take 1 tablet by mouth as needed for Migraine. May repeat in 2 hours if needed 10 tablet 12 ??? Syringe, Disposable, (BD SLIP TIP SYRINGE) 3 mL Syrg use with DHE- 3cc syringes with 1/2 needles 23-25G, filter needles if glass ampules 25 each 3 ??? topiramate (TOPAMAX) 100 mg tablet Take 1 tablet by mouth nightly. 90 tablet 4 ??? topiramate (TOPAMAX) 25 mg tablet Take 1 tablet by mouth every morning. Indications: MIGRAINE PREVENTION 120 tablet 3 No current facility-administered medications on file prior to visit. No Known Allergies OBJECTIVE : BP 119/70 Pulse 68 Body mass index is 0.00 kg/(m^2). Gen: Alert, cooperative in no acute distress. Head: Normocephalic. Eyes: PERRL, full EOM. Ears: Normal pinnae, clear canals,TM's with no redness or bulging. Nose: Patent, without deformity. Throat: Moist mucous membranes without lesions, and posterior oropharynxy shows no erythema or exudate. Neck: Supple, with no lymphadenopathy or tenderness. Respiratory: Normal respiratory effort. Lungs are clear to auscultation with good breath sounds bilaterally. No wheezing or crackles. Heart: RRR without murmurs, rubs, or gallops. ASSESSMENT/PLAN : 1. URI---I. actually look normal today. I don't see any injection and no drainage. She's not had anymore drainage today. I did give her prescription for sulfacetamide eyedrops to fill if her symptoms are worsening including thick yellowish persistent eye drainage. I told her I don't think she needs to take the Keflex. Her tonsils look normal to me today. They are large but they've always been enlarged. There is no erythema or exudates. This is also likely viral in origin. I recommended symptomatic treatment with tylenol and ibuprofen as needed for pain or fevers, plenty of fluids and rest. If symptoms are not improving in the next 1-2 weeks, I recommend follow up. documented in this encounter Plan of Treatment Not on filedocumented as of this encounter Visit Diagnoses Diagnosis Conjunctivitis - Primary Conjunctivitis, unspecified URI (upper respiratory infection) Acute upper respiratory infections of un specified site documented in this encounter Care Teams Planting Material Carrier Relationship Specialty Start Date End Date Padmini Park PA-C PCP - General Family Practice 04/05/12 01/19/16 documented as of this encounter
--- OUTSIDE RECORDS SUMMARY | 2022-03-07 11:26 | XMS_ITS | Encounter Summary ---
:1970 Author Organization [facility] Address [address] [place] [address] Care Team Providers Name Role Phone Padmini Park PA-C Primary Care Provider Reason for Visit Reason Comments Foot Pain Encounter Details Date Type Department Care Team Description 06/11/2012 Office Visit [facility] Serge Arechiga P lantar fasciitis (Primary Dx); MedSurg DPM Achilles bursitis or tendinitis [address] [place] [address] [place], [place] [phone] (Wo rk) Social History Tobacco Use Types Packs/Day Years Used Date Smoking Tobacco: Never Smokeless Tobacco: Never Alcohol Use Standard Drinks/Week Comments Yes 0 (1 standard drink = 0.6 oz pure alcoho l) occasional Sex Assigned at Date Recorded Not on file documented as of this encounter Progress Notes Serge Arechiga DPM - 06/11/2012 9:50 AM CST DATE OF VISIT: 06/11/2012 SUBJECTIVE: Patient presents for followup. Her last visit was her initial clinic visit and this was 2 weeks ago. She was having pain on her right foot since February. A low dye strapping was applied to the right foot and this did help quite a bit. She states that she did not get the temporary blue insert because she could not afford this. She did check with her health plan and they do cover custom orthotics. She is now recently developed some discomfort in the back of her left heel. She denies any injury or trauma. Adverse Drug Reactions: No Known Allergies Medications: Reviewed. See Medication List in Epic . Review of Systems: Negative for Diabetes OBJECTIVE: Patient is neurovascularly intact. There is pain with palpation of the medial process of the plantar weightbearing surface of the calcaneus. There is no pain over the distal fascial band or calcaneal nerve branch. No pain with perm-vc-gyxd compression of the heel. No weakness with muscle testing of the foot ankle or lower leg. No pain with subtalar joint or ankle joint range of motion. No pain with stressing of the anterior or posterior tibial tendons. In stance loss of longitudinal arch is evident. She does have some discomfort at the posterior aspect of the left heel. This is over the Achilles tendon. There are no defects palpated within the Achilles tendon and the pain appears to be just superior to the insertion. Some discomfort with forced dorsiflexion. No other abnormalities noted. ASSESSMENT: Plantar fasciitis right foot Recent onset left Achilles tendinitis PLAN: I discussed a custom orthotic. She agrees. She was casted for orthotics. I will place her intoa flexible polypropylene device. For the Achilles tendinitis, I discussed a Tulis heel cup. I discussed icing and stretching. She will followup with me when the orthotics arrived. If the left heel is still a problem, physical therapy could be an option. The patient was discharged ambulatory and in stable condition. No orders of the defined types were placed in this encounter. No orders of the defined types were placed in this encounter. documented in this encounter Plan of Treatment Not on filedocumented as of this encounter Visit Diagnoses Diagnosis Plantar fasciitis - Primary Plantar fascial fibromatosis Achilles bursitis or tendinitis documented in this encounter Care Teams Burner Hand Relationship Specialty Start Date End Date Padmini Park PA-C PCP - General Family Practice 04/05/12 01/19/16 documented as of this encounter
--- OUTSIDE RECORDS SUMMARY | 2022-03-07 11:26 | XMS_ITS | Encounter Summary ---
:1970 Author Organization [employer] Address [address] [place] [address] Care Team Providers Name Role Phone Padmini Park PA-C Primary Care Provider Encounter Details Date Type Department Care Team Description 12/16/2012 Lab Visit [facility] LLQ abdominal pain [address] [place], [place] [phone] Social History Tobacco Use Types Packs/Day Years Used Date Smoking Tobacco: Never Smokeless Tobacco: Never Alcohol Use Standard Drinks/Week Comments Yes 0 (1 standard drink = 0.6 oz pure alcoho l) occasional Sex Assigned at Date Recorded Not on file documented as of this encounter Progress Notes Savannah Irvin PA-C - 12/16/2012 4:26 PM CDT Quick Note: Results given at visit documented in this encounter Miscellaneous Notes Miscellaneous - 06/30/2016 5:02 AM CSTNotes Recorded by Savannah Irvin PA-C on 12/16/2012 at 4:26 PMResults given at visit ICAL COUNSELOR Miscellaneous - 06/30/2016 5:02 AM CSTNotes Recorded by Savannah Irvin PA-C on 12/16/2012 at 4:26 PMResults given at visit ICAL COUNSELOR Miscellaneous - 06/30/2016 5:02 AM CSTNotes Recorded by Savannah Irvin PA-C on 12/16/2012 at 4:26 PMResults given at visit ICAL COUNSELOR documented in this encounter Plan of Treatment Not on filedocumented as of this encounter Procedures Procedure Name Priority Date/Time Associated Comments Diagnosis URINALYSIS ROUTINE, STAT 12/16/2012 12:21 LLQ abdominal irma n Results for this MICRO/CULTURE IF POS PM CDT procedu re are in the results section. COMPLETE BLOOD STAT 12/16/2012 12:21 LLQ abdominal pain Res ults for this COUNT-W/DIFF PM CDT procedure are i n the results section. DIFFERENTIAL STAT 12/16/2012 12:21 Results for this PM CDT procedure are i n the results section. documented in this encounter Results Differential (12/16/2012 12:21 PM CDT) athologist Signature Absolute 5.3 1.8 - 8.0 HP CONVERSION Neutrophils k/cmm Absolute 3.7 1.1 - 4.0 HP CONVERSION Lymphocytes k/cmm Absolute 0.6 0.2 - 0.8 HP CONVERSION Monocytes k/cmm Absolute 0.2 0.0 - 0.5 HP CONVERSION Eosinophils k/cmm Absolute 0.0 0.0 - 0.2 HP CONVERSION Basophils k/cmm Specimen Anatomical Collection Method Collection Time Receive d Time (Source) Location / / Volume Laterality 12/16/2012 12:21 12/16/2012 PM CDT 12:21 PM CDT Narrative HP CONVERSION - 12/16/2012 12:32 PM CDT Performed at [facility], [address] [place] [id number] Transcriptions 06/30/2016 5:02 AM CSTNotes Recorded by Savannah Irvin PA-C on 12/16/2012 at 4:26 PMResults given at visit Savannah Irvin PA-C LAB_1 Performing Organization Address City/State/ZIP Code Phon e Number HP CONVERSION Complete Blood Count W/Diff (12/16/2012 12:21 PM CDT) P athologist Signature White Blood Cell 9.7 3.8 - 11.0 HP CONVERSIO N Count k/cmm Red Blood Cell 4.46 3.70 - HP CONVERSION Count 5.20 m/cmm Hemoglobin 13.1 11.8 - HP CONVERSION 15.5 g/dL Hematocrit 39.6 35.0 - HP CONVERSION 46.0 % Mean Corpuscular 88.8 80.0 - HP CONVERSION Volume 100.0 fL RDW 12.1 11.0 - HP CONVERSION 15.0 % Platelet Count 284 140 - 450 HP CONVERSION k/cmm Specimen Anatomical Collection Method Collection Time Receive d Time (Source) Location / / Volume Laterality 12/16/2012 12:21 12/16/2012 PM CDT 12:21 PM CDT Narrative HP CONVERSION - 12/16/2012 12:32 PM CDT Performed at [facility], [address] [place] [id number] Transcriptions 06/30/2016 5:02 AM CSTNotes Recorded by Savannah Irvin PA-C on 12/16/2012 at 4:26 PMResults given at visit Savannah Ivrin PA-C LAB_1 Performing Organization Address City/State/ZIP Code Phon e Number HP CONVERSION URINALYSIS ROUTINE, MICRO/CULTURE IF POS (12/16/2012 12:21 PM CDT) Patholo gist Method Time Signature Urine Type Urine:clean HP CONVERSION cat Turbidity Clear Clear HP CONVERSION U BILI Negative Negative HP CONVERSION Blood Urine Negative Negative HP CONVERSION Glucose, Negative Neg-30 HP CONVERSION Qualitative U mg/dL Ketones Negative Negative HP CONVERSION Leukocyte Negative Negative HP CONVERSION Esterase Urine Nitrite Urine Negative Negative HP CONVERSION pH Urine 6.0 5.0 - 8.0 HP CONVERSION Protein Urine Negative Neg - Trace HP CONVERSION mg/dL U Specific 1.025 1.005 - HP CONVERSION Jenkins 1.030 Urobilinogen Negative Negative HP CONVERSION Urine Eu/dL Specimen Anatomical Collection Method Collection Time Receive d Time (Source) Location / / Volume Laterality Urine: 12/16/2012 12:21 12/16/2012 PM CDT 12:21 PM CDT Narrative HP CONVERSION - 12/16/2012 12:30 PM CDT Performed at [facility], [address] [place] [id number] Transcriptions 06/30/2016 5:02 AM CSTNotes Recorded by Savannah Irvin PA-C on 12/16/2012 at 4:26 PMResults given at visit Savannah Irvin PA-C LAB_1 Performing Organization Address City/State/ZIP Code Phon e Number HP CONVERSION documented in this encounter Visit Diagnoses Diagnosis LLQ abdominal pain Abdominal pain, left lower quadrant documented in this encounter Care Teams Associate Java Developer Relationship Specialty Start Date End Date Padmini Park PA-C PCP - General Family Practice 04/05/12 01/19/16 documented as of this encounter
--- OUTSIDE RECORDS SUMMARY | 2022-03-07 11:26 | XMS_ITS | Encounter Summary ---
:1970 Author Organization [employer] Address [address] [place] [address] Care Team Providers Name Role Phone Padmini Park PA-C Primary Care Provider Reason for Visit Reason Comments ROUTINE, FOLLOW-UP Upper back/shoulder area. Encounter Details Date Type Department Care Team Description 07/18/2012 Office Visit [facility] R[facility], Nonallopathic lesion of sacr al region, not elsewhere classified (Primary Dx); [address] [facility] Enoc Lazaro DC Nonallopathic lesion of thor acic region, not elsewhere classified; [place] [phone] Nonallopathic lesion of cerv ical region, not elsewhere classified; [phone] Spasm of muscle Social History Tobacco Use Types Packs/Day Years Used Date Smoking Tobacco: Never Smokeless Tobacco: Never Alcohol Use Standard Drinks/Week Comments Yes 0 (1 standard drink = 0.6 oz pure alcoho l) occasional Sex Assigned at Date Recorded Not on file documented as of this encounter Last Filed Vital Signs Vital Sign Reading Time Taken Comments Blood Pressure 110/75 07/18/2012 8:21 AM INTER COM SERVICER Pulse 82 07/18/2012 8:21 AM INTER COM SERVICER Temperature - - Respiratory Rate 24 07/18/2012 8:21 AM INTER COM SERVICER Oxygen Saturation - - Inhaled Oxygen Concentration - - Weight 76.4 kg (168 lb 6.4 oz) 07/18/2012 8:21 AM INTER COM SERVICER Height 155.6 cm (5' 1.25) 07/18/2012 8:21 AM INTER COM SERVICER Body Mass Index 31.56 07/18/2012 8:21 AM INTER COM SERVICER documented in this encounter Progress Notes Enoc Blanca DC - 07/18/2012 8:26 AM CST Patient:Keara Cuellar Subjective: Keara presents today for: Neck, mid back and left low back pain that radiates into her left leg of insidious onset. Has started working out. 10/28 Objective: Palpatory tenderness, subluxation and muscle spasms in and around the cervical, thoracic and lumbosacral regions. Assessment: 1. Nonallopathic lesion of sacral region, not elsewhere classified [facility]OP[facility] [place] [place]; SP 3-4 RGNS ([id number]) 2. Nonallopathic lesion of thoracic region, not elsewhere classified CHIROPRACTIC [place]IP [place]; SP 3-4 RGNS ([id number]) 3. Nonallopathic lesion of cervical region, not elsewhere classified CHIROPRACTIC [place]IP [place]; SP 3-4 RGNS ([id number]) 4. Spasm of muscle CHIROPRACTIC MANIP [place]; SP 3-4 RGNS ([id number]) Plan: Articular adjustments in the cervical, thoracic and lumbosacral regions with manual therapy tothe cervical, thoracic, lumbosacral and surrounding shoulder and hip regions to increase range of motion, decrease swelling and improve function. Next Visit: PRN. Anticipate 4-8 treatments to alleviate these symptoms. PIRIFORMIS EXERCISES: 3 REPETITIONS @ 30 SECONDS/2-3 TIMES PER DAY TO IMPROVE FLEXIBILITY/FUNCTIO, DECREASE PAIN AND REHABILITATE THE LUMBOSACRAL AND HIP REGIONS. CERVICAL RETRACTION WITH ROTATION EXERCISES: 5 REPETITIONS/2-3MTIMES PER DAY TO IMPROVE FLEXIBILITY/FUNCTION, DECREASE PAIN AND REHABILITATE THE CERVICAL AND UPPER THORACIC AREAS. THORACIC ROTATION EXERCISES: 5 REPETITIONS/2-3MTIMES PER DAY TO IMPROVE FLEXABILTY/FUNCTION, DECREASE PAIN AND REHABILITATE THE THORACIC REGIONS. R COM SERVICER documented in this encounter Plan of Treatment Not on filedocumented as of this encounter Visit Diagnoses Diagnosis Nonallopathic lesion of sacral region, n ot elsewhere classified - Primary Nonallopathic lesion of thoracic region, not elsewhere classified Nonallopathic lesion of cervical region, not elsewhere classified Spasm of muscle documented in this encounter Care Teams Poly Area Supervisor Relationship Specialty Start Date End Date Padmini Park PA-C PCP - General Family Practice 04/05/12 01/19/16 documented as of this encounter
--- OUTSIDE RECORDS SUMMARY | 2022-03-07 11:26 | XMS_ITS | Encounter Summary ---
:1970 Author Organization [employer] Address [address] [place] [address] Care Team Providers Name Role Phone Padmini Park PA-C Primary Care Provider Reason for Visit Reason Comments Foot Pain Encounter Details Date Type Department Care Team Description 05/27/2012 Initial Consult [facility] Serge Arechiga , Foot pain (Primary Dx); MedSurg DPM Plantar fasciitis [address] [place] [address] [place], [place] [phone] [id number] Social History Tobacco Use Types Packs/Day Years Used Date Smoking Tobacco: Never Smokeless Tobacco: Never Alcohol Use Standard Drinks/Week Comments Yes 0 (1 standard drink = 0.6 oz pure alcoho l) occasional Sex Assigned at Date Recorded Not on file documented as of this encounter Progress Notes Serge Arechiga DPM - 05/27/2012 9:21 AM CST DATE OF VISIT: 05/27/2012 SUBJECTIVE: Keara Cuellar is a pleasant 42 y.o. female who presents to clinic today for evaluation of right footpain. She states that for quite some time she has had pain that does come and go. She is not sure exactly where the pain is at. Patient indicates that in February she went to [place] and did quite a bit a walking. She believes that she did have some swelling and discomfort on the top of the foot whichis now better. She believes the pain is in the arch of the foot. It is worse in the morning when getting up out of bed. She states that she feels a pressure-like sensation in her foot. She has not usedany type of inserts in the past.. Adverse Drug Reactions: No Known Allergies Current outpatient prescriptions Medication Sig ??? cyclobenzaprine (FLEXERIL) 10 mg tablet Take 1 tablet by mouth at bedtime as needed for Muscle spasms. ??? diazepam (VALIUM) 5 mg tablet Take 1 tablet by mouth every 8 hours as needed for Other (motion sickness). ??? ibuprofen (MOTRIN) 200 mg tablet Take 1-2 tablets by mouth 3 times daily as needed. ??? rizatriptan (MAXALT) 10 mg tablet Take 1 tablet by mouth as needed for Migraine. May repeat in 2hours if needed ??? topiramate (TOPAMAX) 25 mg tablet Take 1 tablet by mouth 2 times daily. Review of Systems: Negative for fever, rash or shortness of breath. Past Medical History: Reviewed in Epic Past Surgical History Procedure Date ??? Hysterectomy 2005 supracervical ??? Breast reduction surgery 2005 ??? section 1991 failure to progress, distress ??? 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 year old female who appears their stated age. Alert and oriented and in no acute distress. Walks without a limp and appears to be in general good health. DP and PT pulses are palpable. Hair growth is present on the digits and capillary filling time is less than two seconds. Sensation is intact. There is no obvious swelling or ecchymosis. There is no weakness with muscle testing of the foot, ankle or lower leg. No pain or restriction with subtalar joint or ankle joint range of motion. In stance loss of longitudinal arch is evident. There are no paresthesias over the tarsal tunnel or with compression of the dorsal nerves. She does point to the plantar arch area is a source of her pain. She does have some discomfort alongthe distal medial fascial band. There is no pain at the medial process. There is no pain along the course of the posterior tibial tendon. No pain with stressing of the anterior or posterior tibial tendon against resistance. No pain over the peroneal tendons. No pain with palpation of the metatarsal heads or with digital range of motion. Overall, the examination is rather benign with the exception of the discomfort along the medial fascial band. No other abnormalities identified. ASSESSMENT: Right foot pain with mid band plantar fasciitis type symptoms PLAN: Treatment options were discussed with the patient. I discussed the condition in great detail. I discussed a low dye strapping. This was applied to the right foot. The patient will keep this on and dry for 5 days and then begin using a temporary blue insert. The patient will check with their health plan regarding coverage for a custom foot orthotic. I discussed icing and stretching. A brochure discussing the condition was dispensed as well as a brochure illustrating the stretching exercises. The patient will attempt to wear shoes in the house and avoid activities that cause more discomfort. The patient was discharged ambulatory and in stable condition. Orders Placed This Encounter Procedure ? ? ME STRAPPING; ANKLE &/OR FOOT No orders of the defined types were placed in this encounter. documented in this encounter Plan of Treatment Not on filedocumented as of this encounter Visit Diagnoses Diagnosis Foot pain - Primary Pain in limb Plantar fasciitis Plantar fascial fibromatosis documented in this encounter Care Teams Box Lidder Relationship Specialty Start Date End Date Padmini Park PA-C PCP - General Family Practice 04/05/12 01/19/16 documented as of this encounter
--- OUTSIDE RECORDS SUMMARY | 2022-03-07 11:26 | XMS_ITS | Encounter Summary ---
:1970 Author Organization [employer] Address [address] [place] [address] Care Team Providers Name Role Phone Chirag Metzger PA-C Primary Care Provider Encounter Details Date Type Department Care Team Description 09/17/2012 Correspondence [facility] [address] [facility] Enoc Lazaro DC [place] [phone] Social History Tobacco Use Types Packs/Day Years Used Date Smoking Tobacco: Never Smokeless Tobacco: Never Alcohol Use Standard Drinks/Week Comments Yes 0 (1 standard drink = 0.6 oz pure alcoho l) occasional Sex Assigned at Date Recorded Not on file documented as of this encounter Progress Notes Enoc Blanca DC - 09/17/2012 12:00 AM CDT documented in this encounter Plan of Treatment Not on filedocumented as of this encounter Visit Diagnoses Not on filedocumented in this encounter Care Teams Drop Hammer Operator Helper Relationship Specialty Start Date End Date Chirag Metzger PA-C PCP - General Physician Senior Director Of Strategy 07/06/16 [address] [place] [id number] documented as of this encounter
--- OUTSIDE RECORDS SUMMARY | 2022-03-07 11:26 | XMS_ITS | Encounter Summary ---
:1970 Author Organization [employer] Address [address] [place] [address] Care Team Providers Name Role Phone Padmini Park PA-C Primary Care Provider Encounter Details Date Type Department Care Team Description 09/26/2012 Imaging [facility] Other screening mammogram [address] [place] [address] Social History Tobacco Use Types [...] Associated Diagnosis Comme nts MM MAMMOGRAM Routine 09/26/2012 10:02 AM Other screening Resul ts for this SCREENING BILAT W CDT mammogram procedure are in CAD the results section. documented in this encounter Results MM Mammogram Screening Bilat W CAD (09/26/2012 10:02 AM CDT) Anatomical Region Laterality Modality Breast Bilateral Mammography Specimen (Source) Anatomical Location Collection Method / Collectio n Time Received Time / Laterality Volume Impressions 09/27/2012 2:50 PM CDT : BIRADS 1 Negative (overall) Follow Up Mamm in 1 Yr. - Both [facility] Narrative 09/27/2012 2:50 PM CDT Compared to: 08/22/2011 Mammogram and 05/16/2006 (bilateral - [facility], [place]) Bilateral Breast Findings: There are scattered fibroglandular densi ties (25-50%) in the breasts. No significant masses, calcifications or other abnormalities are seen. Procedure Note Art Hernandez MD - 01/12/2016Format ting of this note might be different from the original. Compared to: 08/22/2011 Mammogram and (bilateral - [facility], [place]) Bilateral Breast Findings: There are scattered fibroglandular densi ties (25-50%) in the breasts. No significant masses, calcifications or other abnormalities are seen. IMPRESSION : BIRADS 1 Negative (overall) Follow Up Mamm in 1 Yr. - Both [facility] Chirag Metzger PA-C RAD KV[facility] documented in this encounter Visit Diagnoses Diagnosis Other screening mammogram documented in this encounter Care Teams Bore Mill Operator Relationship Specialty Start Date End Date Padmini Park PA-C PCP - General Family Practice 04/05/12 01/19/16 documented as of this encounter
--- OUTSIDE RECORDS SUMMARY | 2022-03-07 11:26 | XMS_ITS | Encounter Summary ---
:1970 Author Organization [employer] Address [address] [place] [address] Care Team Providers Name Role Phone Padmini Park PA-C Primary Care Provider Reason for Visit Reason Comments Forms Encounter Details Date Type Department Care Team Description 10/08/2012 Notes/Orders [facility] 3931 Ruy Franco RN Neurology [address] [facility] [address] [place], [place] [id number] [place] [address] Social History Tobacco Use Types Packs/Day Years Used Date Smoking Tobacco: Never Smokeless Tobacco: Never Alcohol Use Standard Drinks/Week Comments Yes 0 (1 standard drink = 0.6 oz pure alcoho l) occasional Sex Assigned at Date Recorded Not on file documented as of this encounter Progress Notes Madison Franco RN - 10/08/2012 8:58 AM CDT [facility] paperwork/Request for Accomodation papers filled out, signed by Dr. Victor and faxed to [phone], copy sent to [facility] documented in this encounter Plan of Treatment Not on filedocumented as of this encounter Visit Diagnoses Not on filedocumented in this encounter Care Teams Group Tester Relationship Specialty Start Date End Date Padmini Park PA-C PCP - General Family Practice 04/05/12 01/19/16 documented as of this encounter
--- OUTSIDE RECORDS SUMMARY | 2022-03-07 11:26 | XMS_ITS | Encounter Summary ---
:1970 Author Organization [employer] Address [address] [place] [address] Care Team Providers Name Role Phone Chirag Metzger PA-C Primary Care Provider Encounter Details Date Type Department Care Team Description 03/01/2012 Notes/Orders [facility] Carla Conner [address] [place] [phone] Social History Tobacco Use Types Packs/Day Years [...] on filedocumented in this encounter Care Teams Shift Production Supervisor Relationship Specialty Start Date End Date Chirag Metzger PA-C PCP - General 08/17/11 04/04/[address] [phone] documented as of this encounter
--- OUTSIDE RECORDS SUMMARY | 2022-03-07 11:26 | XMS_ITS | Encounter Summary ---
:1970 Author Organization [employer] Address [address] [place] [address] Care Team Providers Name Role Phone Padmini Park PA-C Primary Care Provider Reason for Visit Reason Comments ROUTINE, FOLLOW-UP Neck, upper back and lower b ack. Encounter Details Date Type Department Care Team Description 05/24/2012 Office Visit [facility], Nonallopathic lesion of sacr al region, not elsewhere classified (Primary Dx); [address] [facility] Enoc Lazaro DC Nonallopathic lesion of thor acic region, not elsewhere classified; [place] [phone] Nonallopathic lesion of cerv ical region, not elsewhere classified; [phone] Spasm of muscle ; Sciatica Social History Tobacco Use Types Packs/Day Years Used Date Smoking Tobacco: Never Smokeless Tobacco: Never Alcohol Use Standard Drinks/Week Comments Yes 0 (1 standard drink = 0.6 oz pure alcoho l) occasional Sex Assigned at Date Recorded Not on file documented as of this encounter Last Filed Vital Signs Vital Sign Reading Time Taken Comments Blood Pressure 121/83 05/24/2012 10:50 AM UTILITY SPRAY OPERATOR Pulse 87 05/24/2012 10:50 AM UTILITY SPRAY OPERATOR Temperature - - Respiratory Rate 16 05/24/2012 10:50 AM UTILITY SPRAY OPERATOR Oxygen Saturation - - Inhaled Oxygen Concentration - - Weight 79.7 kg (175 lb 9.6 oz) 05/24/2012 10:50 AM UTILITY SPRAY OPERATOR Height 156.8 cm (5' 1.75) 05/24/2012 10:50 AM UTILITY SPRAY OPERATOR Body Mass Index 32.38 05/24/2012 10:50 AM UTILITY SPRAY OPERATOR documented in this encounter Progress Notes Enoc Blanca DC - 05/24/2012 10:48 AM CST Patient:Keara Cuellar Subjective: Keara presents today for: Neck, mid back and left low back pain that radiates into her left leg of insidious onset. 10/28 Objective: Palpatory tenderness, subluxation and muscle spasms in and around the cervical, thoracic and lumbosacral regions. Assessment: 1. Nonallopathic lesion of sacral region, not elsewhere classified [facility] [place]; SP 3-4 RGNS ([id number]) 2. Nonallopathic lesion of thoracic region, not elsewhere classified [facility] [place]; SP 3-4 RGNS ([id number]) 3. Nonallopathic lesion of cervical region, not elsewhere classified [facility] [place]; SP 3-4 RGNS ([id number]) 4. Spasm of muscle [facility]IROP[facility] [place]; SP 3-4 RGNS ([id number]) 5. Sciatica [facility] [place]; SP 3-4 RGNS ([id number]) Plan: Articular adjustments in the cervical, thoracic [...] DECREASE PAIN AND REHABILITATE THE THORACIC REGIONS. ITY SPRAY OPERATOR documented in this encounter Plan of Treatment Not on filedocumented as of this encounter Visit Diagnoses Diagnosis Nonallopathic lesion of sacral region, n ot elsewhere classified - Primary Nonallopathic lesion of thoracic region, not elsewhere classified Nonallopathic lesion of cervical region, not elsewhere classified Spasm of muscle Sciatica ([facility]) Sciatica documented in this encounter Care Teams Manager Dish Relationship Specialty Start Date End Date Padmini Park PA-C PCP - General Family Practice 04/05/12 01/19/16 documented as of this encounter
--- OUTSIDE RECORDS SUMMARY | 2022-03-07 11:26 | XMS_ITS | Encounter Summary ---
:1970 Author Organization [employer] Address [address] [place] [address] Care Team Providers Name Role Phone Padmini Park PA-C Primary Care Provider Reason for Visit Reason Comments Other Encounter Details Date Type Department Care Team Description 09/19/2012 Telephone Chirag Chopra PA-C Other [address] [place] [address] [place] [phone] (Wo rk) Social History Tobacco Use Types Packs/Day Years Used Date Smoking Tobacco: Never Smokeless Tobacco: Never Alcohol Use Standard Drinks/Week Comments Yes 0 (1 standard drink = 0.6 oz pure alcoho l) occasional Sex Assigned at Date Recorded Not on file documented as of this encounter Nursing Notes Karen Lyons RN - 09/19/2012 3:02 PM CDT disregard call. Karen Villagomez - 09/19/2012 2:59 PM CDT Nurse from neurology calling stating that neurology dept doesn't do CON 2. There is an order in system for the Con 2, Chirag Metzger would have to speak with public transportation inspector neurologist direct Juanita Ochoa at [phone] Michelle Gillis - 09/19/2012 2:53 PM CDT Caller would like to speak with a nurse regarding patients referral. Please assist. documented in this encounter Plan of Treatment Not on filedocumented as of this encounter Visit Diagnoses Not on filedocumented in this encounter Care Teams Load Out Supervisor Relationship Specialty Start Date End Date Padmini Park PA-C PCP - General Family Practice 04/05/12 01/19/16 documented as of this encounter
--- OUTSIDE RECORDS SUMMARY | 2022-03-07 11:26 | XMS_ITS | Encounter Summary ---
:1970 Author Organization [employer] Address [address] [place] [address] Care Team Providers Name Role Phone Padmini Park PA-C Primary Care Provider Reason for Visit Reason Comments Cough Encounter Details Date Type Department Care Team Description 12/02/2012 Hospital Encounter [facility] Vanita Throat discomfort (Primary Dx); Jong Willoughby MD Cough; [address] [address] Social History Tobacco Use Types Packs/Day Years Used Date Smoking Tobacco: Never Smokeless Tobacco: Never Alcohol Use Standard Drinks/Week Comments Yes 0 (1 standard drink = 0.6 oz pure alcoho l) occasional Sex Assigned at Date Recorded Not on file documented as of this encounter Last Filed Vital Signs Vital Sign Reading Time Taken Comments Blood Pressure 106/71 12/02/2012 12:19 PM CDT Pulse 85 12/02/2012 12:19 PM CDT Temperature 36.5 ??C (97.7 ??F) 12/02/2012 12:19 PM CDT Respiratory Rate 16 12/02/2012 12:19 PM CDT Oxygen Saturation 98% 12/02/2012 12:19 PM CDT Inhaled Oxygen Concentration - - Weight - - Height - - Body Mass Index - - documented in this encounter Medications at Time of Discharge Medication Sig Dispensed Refills Start Date End Date cephALEXin (aka Take 1 capsule by 30 capsule 0 12/02/2012 KEFLEX) capsule mouth 3 times daily. cyclobenzaprine (AKA Take 1 tablet by mouth 20 tablet 0 09/11/2013 FLEXERIL) 10 MG tablet at bedtime as needed for Muscle spasms. DIAZEpam (AKA VALIUM) Take 1 tablet by mouth 12 tablet 0 03/04/2014 5 MG every 8 hours as tabletIndications: needed for Other Motion sickness (motion sickness). Diflorasone Diacet 1mg/mL SubQ injection 20 mL 1 201209/11/2013 [employer] (AKA 3 times a day x 7 APEXICON E) 0.05 % days, or until VIRK-free cream for 24 hrs guaiFENesin-codeine Take 5 mLs by mouth 180 mL 0 013 01/05/2013 (aka ROBITUSSIN AC) every 4 hours as 100-10 MG/5ML oral needed for Cough. liquid ibuprofen (AKA MOTRIN) Take 1-2 tablets by 200 13 09/1801/05/2013 200 MG mouth 3 times daily as tabletIndications: needed. KALANI FIERRO Jan 05, 2013 11:33 AM 800mg last night. Ibuprofen-Diphenhydram Take by mouth at 0 013 12/05/2013 ine Cit (ADVIL PM) bedtime as needed. 200-38 MG MYLANTA-LIDOCAINE Swish and spit 5 mLs 240 mL 0 12/03/19 13 01/05/2013 2%-DIPHENHYDRAMINE as needed for Pain. ORAL MEJIA Contains 1:1:1 ratio of Maalox + viscous lidocaine 2% + diphenhydramine oral solution ondansetron (AKA Take 1 tablet by mouth 30 tablet 0 013 09/17/2013 ZOFRAN) 8 MG every 8 hours as disintegrating needed for Nausea or tabletIndications: Vomiting. Dissolve Nausea alone tablet on tongue Oral Medication to dispose of syringes 1 each 3 09/21/19 13 09/11/2013 Containers and needles predniSONE (AKA Take with food. 3 tabs 26 tablet 0 09/18/19 13 01/05/2013 DELTASONE) 10 MG BID x2d, 2 tabs BID tabletIndications: x2d, 1 tab BID x2d, Status migrainosus done. rizatriptan (AKA Take 1 tablet by mouth 10 tablet 12 012 12/05/2013 MAXALT) 10 MG as needed for tabletIndications: Migraine. May repeat Headache, migraine in 2 hours if needed Syringe, Disposable, 3 use with DHE- 3cc 25 each 3 201209/11/2013 ML syringes with 1/2 needles 23-25G, filter needles if glass ampules topiramate (AKA Take 1 tablet by mouth 90 tablet 4 06/28/19 13 02/04/2014 TOPAMAX) 100 MG nightly. tabletIndications: Headache, migraine topiramate (AKA Take 1 tablet by mouth 120 tablet 3 09/21/19 13 09/11/2013 TOPAMAX) 25 MG every morning. tabletIndications: Indications: MIGRAINE Migraine, chronic, PREVENTION without aura, intractable, with status migrainosus Ascorbic Acid (VITAMIN Take 1,000 mg by mouth 0 07/06/2016 C) 1000 MG tablet daily. Biotin 5000 MCG TABS 0 09/2018 Cholecalciferol daily. 0 7 (VITAMIN D OR) Cyanocobalamin 0 07/06/2016 (VITAMIN B-12) 2500 MCG cyclobenzaprine (AKA Take 10 mg by mouth 0 07/06/2016 FLEXERIL) 10 MG tablet three times a day as needed. Multiple Vitamin 0 07/06/19 17 (MULTI-VITAMIN OR) Phentermine HCl (AKA Take 18.75 mg by mouth 0 07/06/2016 ADIPEX-P) 37.5 MG daily before tablet breakfast. rizatriptan (MAXALT) Take 10 mg by mouth 0 07/06/2016 10 MG tablet once as needed. at onset of migraine. May repeat in 2 hr if needed up to 30mg in 24 hr & MAX use 5 days/month topiramate (AKA Take 25 mg by mouth 0 07/06/2016 TOPAMAX) 25 MG tablet two times a day. documented as of this encounter ED Notes Vanita Escalante MD - 12/02/2012 4:15 PM CDT ED Provider Notes signed by Vanita Escalante MD at 12/04/122129 Author: Vanita Escalante MD Service: (none) Author Type: Physician Filed: 12/04/122129 Note Time: 12/03/12999 Status: Signed Glass Block Bender: Vanita Escalante MD (Physician) NAME: KEARA ROB MR#: [id number] CSN: [id number] AUTHENTICATING CLINICIAN: Vanita Escalante MD CONFIRM #: [id number] LOC: 520 URGENT CARE PROGRESS NOTE DATE OF VISIT: 12/02/2012 : 1970 HISTORY: This 42-year-old female comes in with concern for being sick mostly with sore throat and cough, a little bit of nasal congestion for the past 3 days. No obvious fevers. She has had body aches and she is concerned because her sore throat has been gradually getting worse and very uncomfortable to her. No problem breathing. No obvious hoarseness. She has had some body aches all along. She has no known exposure. PAST MEDICAL HISTORY: Migraine. MEDICATIONS: Reviewed in [facility]. ALLERGIES: None. PHYSICAL EXAMINATION: Temperature 97.7, blood pressure 106/71, oxygen saturation 98% on room air. Exam shows patient looking good in no acute distress. She is very concerned for her sore throat. The throat shows mildly enlarged tonsils which are inflamed but no obvious exudate. Ears show normalTMs bilaterally. NECK: Supple. There are 1 or 2 palpable, mildly enlarged lymph nodes bilateral submandibular areas. LUNGS: Clear. CARDIOVASCULAR: Regular rhythm and rate. Normal S1, S2. Rapid strep is negative. IMPRESSION: 1. Pharyngitis and slight mild tonsillitis. 2. Cough. PLAN: Most probably, she has a viral etiology but as there is obvious inflammation in the tonsils, I will go ahead and treat her with a course of Keflex at this point per [facility]. She is also requesting a prescription for a cough syrup with codeine which was given to her. She also has been given Magic mouthwash in the past which has helped her sore throat in the past, and she is requesting the same prescription which I also was given to her. Other symptomatic management discussed. Recheck if fevers, feeling sicker or no improvement. [id number] C: CONFIRM #: [id number] documented in this encounter Miscellaneous Notes Medication History - Benedict Amaya MD - 12/02/2012 1:06 PM CDT INPATIENT MEDS Encounter Date: 12/02/12 cephALEXin (KEFLEX) 500 mg capsule Start Date:12/02/12, End Date:12/16/12, Frequency:3 TIMES DAILY *No Administrations Recorded maalox-viscous lidocaine-diphenhydramine (MAGIC MOUTHWASH) oral suspension Start Date:12/02/12, End Date:01/05/13, Frequency:PRN *No Administrations Recorded guaiFENesin-codeine (GUAIFENESIN AC) 10-100 mg/5 mL liquid Start Date:12/02/12, End Date:01/05/13, Frequency:EVERY 4 HOURS PRN *No Administrations Recorded documented in this encounter Plan of Treatment Not on filedocumented as of this encounter Procedures Procedure Name Priority Date/Time Associated Diagnosis Comme nts BETA STREP FOLLOWUP Routine 12/02/2012 1:39 PM Re sults for this CDT procedure are i n the results section. GROUP A STREP STAT 12/02/2012 12:39 PM Throat discomfort Re sults for this ANTIGEN SCREEN CDT procedure are in the results section. documented in this encounter Results BETA STREP FOLLOWUP (12/02/2012 1:39 PM CDT) [facility] gist Method Time Signature Source Throat HP CONVERSION Site HP CONVERSION Strep Screen No beta HP CONVERSION hemolytic Strep Group A isolated. Specimen (Source) Anatomical Collection Method Collection Time Re ceived Time Location / / Volume Laterality Throat: 12/02/2012 1:39 PM CDT Vanita Escalante MD LAB_1 Performing Organization Address City/State/ZIP Code Phon e Number HP CONVERSION RAPID STREP GROUP A WAIVED (12/02/2012 12:39 PM CDT) Analysis Performed At [facility] logist Time Signature Strep A Negative Negative HP CONVERSION Antigen Strep A Source Throat: HP CONVERSION Specimen Anatomical Collection Method Collection Time Receive d Time (Source) Location / / Volume Laterality 12/02/2012 12:39 12/02/2012 1:39 PM CDT PM CDT Narrative HP CONVERSION - 12/02/2012 1:41 PM CDT Performed at [facility], [address] [place] [address] Vanita Escalante MD LAB_1 Performing Organization Address City/State/ZIP Code Phon e Number HP CONVERSION documented in this encounter Visit Diagnoses Diagnosis Throat discomfort - Primary Throat pain Cough Tonsillitis Acute tonsillitis Triage Assessment Note - Marti Cruz, RN - 12/02/2012 12:16 PM CDT x2 days, thick/yellow-feels stuck in throat, sore throat, body aches, headache, left side of nose congested, left ear painful documented in this encounter Care Teams Line And Frame Poler Relationship Specialty Start Date End Date Padmini Park PA-C PCP - General Family Practice 04/05/12 01/19/16 documented as of this encounter
--- OUTSIDE RECORDS SUMMARY | 2022-03-07 11:26 | XMS_ITS | Encounter Summary ---
:1970 Author Organization [employer] Address [address] [place] [address] Care Team Providers Name Role Phone Padmini Park PA-C Primary Care Provider Reason for Visit Reason Comments Follow-up, NOS Encounter Details Date Type Department Care Team Description 06/28/2012 Office Visit [facility], Nonallopathic lesion of sacr al region, not elsewhere classified (Primary Dx); [address] Enoc Lazaro [place] Nonallopathic lesion of thor acic region, not elsewhere classified; [place] [id number] Nonallopathic lesion of cerv ical region, not elsewhere classified; [phone] Spasm of muscle ; Sciatica Social History Tobacco Use Types Packs/Day Years Used Date Smoking Tobacco: Never Smokeless Tobacco: Never Alcohol Use Standard Drinks/Week Comments Yes 0 (1 standard drink = 0.6 oz pure alcoho l) occasional Sex Assigned at Date Recorded Not on file documented as of this encounter Last Filed Vital Signs Vital Sign Reading Time Taken Comments Blood Pressure 111/74 06/28/2012 10:52 AM COMPOSITION MIXER Pulse 75 06/28/2012 10:52 AM COMPOSITION MIXER Temperature - - Respiratory Rate - - Oxygen Saturation - - Inhaled Oxygen Concentration - - Weight - - Height - - Body Mass Index - - documented in this encounter Progress Notes Enoc Blanca DC - 06/28/2012 10:50 AM CST Patient:Keara Cuellar Subjective: Keara presents today for: Neck, mid back and left low back pain that radiates into her left leg of insidious onset. 10/28 Objective: Palpatory tenderness, subluxation and muscle spasms in and around the cervical, thoracic and lumbosacral regions. Assessment: 1. Nonallopathic lesion of sacral region, not elsewhere classified [facility] [place]; SP 3-4 RGNS ([id number]) 2. Nonallopathic lesion of thoracic region, not elsewhere classified [facility] [place]; SP 3-4 RGNS ([id number]) 3. Nonallopathic lesion of cervical region, not elsewhere classified [facility] [place]; SP 3-4 RGNS ([id number]) 4. Spasm of muscle [facility] [place]; SP 3-4 RGNS (68467) 5. Sciatica [facility] [place]; SP 3-4 RGNS ([id number]) Plan: Articular adjustments in the cervical, thoracic [...] DECREASE PAIN AND REHABILITATE THE THORACIC REGIONS. OSITION MIXER documented in this encounter Plan of Treatment Not on filedocumented as of this encounter Visit Diagnoses Diagnosis Nonallopathic lesion of sacral region, n ot elsewhere classified - Primary Nonallopathic lesion of thoracic region, not elsewhere classified Nonallopathic lesion of cervical region, not elsewhere classified Spasm of muscle Sciatica (HRC) Sciatica documented in this encounter Care Teams Lithographed Plate Inspector Relationship Specialty Start Date End Date Padmini Park PA-C PCP - General Family Practice 04/05/12 01/19/16 documented as of this encounter
--- OUTSIDE RECORDS SUMMARY | 2022-03-07 11:26 | XMS_ITS | Encounter Summary ---
:1970 Author Organization [employer] Address [address] [place] [address] Care Team Providers Name Role Phone Chirag Metzger PA-C Primary Care Provider Reason for Visit Reason Comments NECK PAIN Encounter Details Date Type Department Care Team Description 03/05/2012 Office Visit [facility], Nonallopathic lesion of sacr al region, not elsewhere classified (Primary Dx); [address] [place]az[place] Nonallopathic lesion of thor acic region, not elsewhere classified; [place] [id number] Nonallopathic lesion of cerv ical region, not elsewhere classified; [phone] Spasm of muscle Social History Tobacco Use Types Packs/Day Years Used Date Smoking Tobacco: Never Smokeless Tobacco: Never Alcohol Use Standard Drinks/Week Comments Yes 0 (1 standard drink = 0.6 oz pure alcoho l) occasional Sex Assigned at Date Recorded Not on file documented as of this encounter Patient Instructions Patient InstructionsFleiEnoc henley DC - 03/05/2012 9:52 AM CDT CERVICAL RETRACTION WITH ROTATION EXERCISES: 5 REPETITIONS/2-3MTIMES PER DAY TO IMPROVE FLEXIBILITY/FUNCTION, DECREASE PAIN AND REHABILITATE THE CERVICAL AND UPPER THORACIC AREAS. THORACIC ROTATION EXERCISES: 5 REPETITIONS/2-3MTIMES PER DAY TO IMPROVE FLEXABILTY/FUNCTION, DECREASE PAIN AND REHABILITATE THE THORACIC REGIONS. documented in this encounter Progress Notes Enoc Blanca DC - 03/05/2012 9:40 AM CDT Patient:Keara Cuellar Subjective: Keara presents today for: Neck, mid back and left low back pain that radiates into her left leg of insidious onset. Improvement 08/28 Objective: Palpatory tenderness, subluxation and muscle spasms in and around the cervical, thoracic and lumbosacral regions. Assessment: 1. Nonallopathic lesion of sacral region, not elsewhere classified [facility] [place]; SP 3-4 RGNS ([id number]) 2. Nonallopathic lesion of thoracic region, not elsewhere classified [facility] [place]; SP 3-4 RGNS ([id number]) 3. Nonallopathic lesion of cervical region, not elsewhere classified [facility] [place]; SP 3-4 RGNS (07533) 4. Spasm of muscle [facility] [place]; SP 3-4 RGNS (57195) Plan: Articular adjustments in the cervical, thoracic [...] DECREASE PAIN AND REHABILITATE THE THORACIC REGIONS. documented in this encounter Plan of Treatment Not on filedocumented as of this encounter Visit Diagnoses Diagnosis Nonallopathic lesion of sacral region, n ot elsewhere classified - Primary Nonallopathic lesion of thoracic region, not elsewhere classified Nonallopathic lesion of cervical region, not elsewhere classified Spasm of muscle documented in this encounter Care Teams Pre Press Manager Relationship Specialty Start Date End Date Chirag Metzger PA-C PCP - General 08/17/11 04/04/[id number] [place] [address] [id number] documented as of this encounter
--- OUTSIDE RECORDS SUMMARY | 2022-03-07 11:26 | XMS_ITS | Encounter Summary ---
:1970 Author Organization [employer] Address [address] [place] [address] Care Team Providers Name Role Phone Padmini Park PA-C Primary Care Provider Encounter Details Date Type Department Care Team Description 12/16/[address] Scan LLQ abdominal pain (Primary Dx); [id number] [facility] [place] [address] Social History Tobacco Use Types Packs/Day Years Used Date Smoking Tobacco: Never Smokeless Tobacco: Never Alcohol Use Standard Drinks/Week Comments Yes 0 (1 standard drink = 0.6 oz pure alcoho l) occasional Sex Assigned at Date Recorded Not on file documented as of this encounter Progress Notes Savannah Irvin PA-C - 12/16/2012 8:57 PM CDT Quick Note: I notified patient of diverticulitis and left her a message. Flagyl and cipro were called to her pharmacy. documented in this encounter Miscellaneous Notes Miscellaneous - 06/30/2016 5:02 AM CSTNotes Recorded by Savannah Irvin PA-C on 12/16/2012 at 8:57 PMI notified patient of diverticulitis and left her a message. Flagyl and cipro were called to her pharmacy. N SERVICE AGENT documented in this encounter Plan of Treatment Not on filedocumented as of this encounter Procedures Procedure Name Priority Date/Time Associated Diagnosis Comme nts CT ABD PELVIS W IV Routine 12/16/2012 5:34 PM LLQ abdomi nal pain Results for this CONT CDT Diverticulitis procedure are in the results section. documented in this encounter Results CT Abd Pelvis W IV Cont (12/16/2012 5:34 PM CDT) Anatomical Region Laterality Modality Abdomen, Pelvis Other Specimen (Source) Anatomical Location Collection Method / Collectio n Time Received Time / Laterality Volume Impressions 12/16/2012 7:03 PM CDT IMPRESSION: 1. Mild early diverticulitis involving t he proximal sigmoid colon. ?? 2. Otherwise no evidence for abscess. ? Narrative 12/16/2012 7:03 PM CDT COMPARISON: ??None. ?? FINDINGS: ??CT scan of the abdomen and p jagruti was obtained using oral contrast and 100 mL of IV Optiray. ??The lung bases are clear. ??The liver, spleen and pancreas are normal. ??The gallbladder is unr emarkable. ??The kidneys show no renal c alculi. ??The small bowel appears normal. ??Colon show s early diverticulitis involving the proximal sigmoid colon with mildly increased tissue strandings. ??No evidence for diverticular abscess. ??Pelvis shows no of free fluid. Procedure Note Eddie Boyce MD - 11/06/2015 COMPARISON: None. FINDINGS: CT scan of the abdomen and pel vis was obtained using oral contrast and 100 mL of IV Optiray. The lung bases are clear. The liver, spleen and pancreas are normal. The gallbladder is unremarkable. The kidneys show no renal calculi. The small bowel appears normal. Colon shows early diverticulitis involving the proximal sigmoid colon with mildly increased tissue strandings. No evidence for diverticular abscess. Pelvis shows no of free fluid. IMPRESSION IMPRESSION: 1. Mild early diverticulitis involving t he proximal sigmoid colon. 2. Otherwise no evidence for abscess. Transcriptions Eddie Boyce MD - 06/30/2016 5:02 AM CS TNotes Recorded by Savannah Irvin PA-C on 12/16/2012 at 8:57 PMI notified patient of diverticulitis and left her a message. Flagyl and cipro were called to her pharmacy. Savannah Irvin PA-C RAD CT documented in this encounter Visit Diagnoses Diagnosis LLQ abdominal pain - Primary Abdominal pain, left lower quadrant Diverticulitis Diverticulitis of colon (without mention of hemorrhage) documented in this encounter Care Teams Supervisor Lime Relationship Specialty Start Date End Date Padmini Park PA-C PCP - General Family Practice 04/05/12 01/19/16 documented as of this encounter
--- OUTSIDE RECORDS SUMMARY | 2022-03-07 11:26 | XMS_ITS | Encounter Summary ---
:1970 Author Organization [employer] Address [address] [place] [address] Care Team Providers Name Role Phone Padmini Park PA-C Primary Care Provider Reason for Visit Reason Comments Follow-up, NOS Neck and R shoulder pain tod ay. Encounter Details Date Type Department Care Team Description 09/17/2012 Office Visit [facility], Nonallopathic lesion of sacr al region, not elsewhere classified (Primary Dx); [address] [place] Nonallopathic lesion of thor acic region, not elsewhere classified; [place] [id number] Nonallopathic lesion of cerv ical region, not elsewhere classified; [phone] Spasm of muscle Social History Tobacco Use Types Packs/Day Years Used Date Smoking Tobacco: Never Smokeless Tobacco: Never Alcohol Use Standard Drinks/Week Comments Yes 0 (1 standard drink = 0.6 oz pure alcoho l) occasional Sex Assigned at Date Recorded Not on file documented as of this encounter Last Filed Vital Signs Vital Sign Reading Time Taken Comments Blood Pressure 127/86 09/17/2012 10:54 AM CDT Pulse 98 09/17/2012 10:54 AM CDT Temperature - - Respiratory Rate 20 09/17/2012 10:54 AM CDT Oxygen Saturation - - Inhaled Oxygen Concentration - - Weight - - Height - - Body Mass Index - - documented in this encounter Progress Notes Enoc Blanca DC - 09/17/2012 10:51 AM CDT Patient:Keara Cuellar Subjective: Keara presents today for: headaches, neck, mid back and left low back pain that radiates into her left leg of insidious onset. Same Objective: Palpatory tenderness, subluxation and muscle spasms in and around the cervical, thoracic and lumbosacral regions. Assessment: 1. Nonallopathic lesion of sacral region, not elsewhere classified [facility] [place]; SP 3-4 RGNS ([id number]) 2. Nonallopathic lesion of thoracic region, not elsewhere classified [facility] [place]; SP 3-4 RGNS ([id number]) 3. Nonallopathic lesion of cervical region, not elsewhere classified [facility] [place]; SP 3-4 RGNS (73275) 4. Spasm of muscle [facility] [place]; SP 3-4 RGNS ([id number]) Plan: Articular adjustments in the cervical, thoracic [...] muscle documented in this encounter Care Teams Water Quality Control Engineer Relationship Specialty Start Date End Date Padmini Park PA-C PCP - General Family Practice 04/05/12 01/19/16 documented as of this encounter
--- OUTSIDE RECORDS SUMMARY | 2022-03-07 11:26 | XMS_ITS | Encounter Summary ---
:1970 Author Organization [employer] Address [address] [place] [address] Care Team Providers Name Role Phone Padmini Park PA-C Primary Care Provider Reason for Visit Reason Comments Questions Encounter Details Date Type Department Care Team Description 12/03/2012 Telephone [facility] Chirag Viera PA-C Questions [address] [place] [id number] [place] [phone] (Wo rk) Social History Tobacco Use Types Packs/Day Years Used Date Smoking Tobacco: Never Smokeless Tobacco: Never Alcohol Use Standard Drinks/Week Comments Yes 0 (1 standard drink = 0.6 oz pure alcoho l) occasional Sex Assigned at Date Recorded Not on file documented as of this encounter Nursing Notes Barb Peter LPN - 12/09/2012 9:25 AM CDT Pt was seen by other provider and received medication,. Barb Peter LPN - 12/03/2012 4:42 PM CDT Message left for pt to call back for clarification. Chirag Metzger PA-C - 12/03/2012 4:40 PM CDT I see previous prescriptions for ibuprofen 200 mg, but no current or historic prescriptions for an 800 mg tab. Please clarify. Sofie Bryan RN - 12/03/2012 3:41 PM CDT DOES NOT MEET REQUIREMENTS FOR REFILL Reason: needing signed order from PCP/not on active medication list Last visit with PCP: qualifying visit on 09/17/12 pt was seen at urgent care 12/02/12, reports did not ask for new rx for ibuprofen as she thought she still had order. Requesting rx be sent to take prn for fever pain related to cold sx. Pharmacy correct. Call if questions problems sending. Ann Jay - 12/03/2012 3:23 PM CDT Pt says pharmacy still hasn't gotten rx for Ibuprofen 800mg. Pt would like to know status. documented in this encounter Plan of Treatment Not on filedocumented as of this encounter Visit Diagnoses Not on filedocumented in this encounter Care Teams Assistant Plant Control Operator Relationship Specialty Start Date End Date Padmini Park PA-C PCP - General Family Practice 04/05/12 01/19/16 documented as of this encounter
--- OUTSIDE RECORDS SUMMARY | 2022-03-07 11:26 | XMS_ITS | Encounter Summary ---
:1970 Author Organization [employer] Address [address] [place] [address] Care Team Providers Name Role Phone Padmini Park PA-C Primary Care Provider Reason for Visit Reason Comments Abdominal Pain Encounter Details Date Type Department Care Team Description 12/16/2012 Office Visit [facility], Savannah M, LLQ abdominal pain [address] [place] (Primary Dx) [place] [address] [address] [facility] [phone] [place], [place] [phone] (Wo rk) Social History Tobacco Use Types Packs/Day Years Used Date Smoking Tobacco: Never Smokeless Tobacco: Never Alcohol Use Standard Drinks/Week Comments Yes 0 (1 standard drink = 0.6 oz pure alcoho l) occasional Sex Assigned at Date Recorded Not on file documented as of this encounter Last Filed Vital Signs Vital Sign Reading Time Taken Comments Blood Pressure 110/74 12/16/2012 12:03 PM CDT Pulse 68 12/16/2012 12:03 PM CDT Temperature 36.6 ??C (97.9 ??F) 12/16/2012 12:03 PM CDT Respiratory Rate - - Oxygen Saturation - - Inhaled Oxygen Concentration - - Weight 75.8 kg (167 lb) 12/16/2012 12:03 PM CDT Height - - Body Mass Index 31.55 09/20/2012 12:20 PM CDT documented in this encounter Progress Notes Savannah Irvin PA-C - 12/16/2012 1:35 PM CDT Subjective: Chief complaint: Chief Complaint Patient presents with ??? Abdominal Pain (STOMACH ACHE) Keara Cuellar is an 42 y.o. female who presents for evaluation of the below issues in the problem list. LLQ abdominal pain patient has had llq abdominal pain for 3 days. It started with a cramping and pulling sensation in the mid epigastric area. She tried to watch what she was eating. Eating tended to make it worse. She tried tea which didn't help. Mid epi pain is better, but now it has settled in the LLQ. It radiates into her low back. It is constant in her back, but colicky in her left side worse with movement or walking. She takes a colon supplement to flush her colon. Stool is loose and not changed. No melena or hematochezia. She denies dysuria, frequency or urgency. She had a hysterectomy, but her ovaries are left behind. Past medical, family, and social history reviewed and updated today complete Review of Systems is negative other than stated above Medications reviewed in EMR Adverse drug reactions: Review of patient's allergies indicates no known allergies. Vital signs: BP 110/74 Pulse 68 Temp(Src) 97.8 ??F (36.6 ??C) Wt 167 lb (75.751 kg) BMI 31.57 kg/m2 Objective: Vital Signs: BP 110/74 Pulse 68 Temp(Src) 97.8 ??F (36.6 ??C) Wt 167 lb (75.751 kg) BMI 31.57 kg/m2 General: Pleasant female, alert, in NAD. HEENT: PERRLA, EOMI, no icterus or injection. Bilateral TM's, external canals, oropharynx normal. Neck: Supple, without thyromegaly or mass. No LAD. No JVD or carotid bruits. CV: RRR without murmurs, rubs or gallops. 2/4 radial artery and dorsalis pedis pulse bilaterally. Resp: Clear to auscultation without crackles, wheezes or distress. Abdomen: Soft, non-distended, without hepatosplenomegaly, masses. Patient has tenderness in the LLQ without masses, but rebound is noted. Psychiatric: Alert & oriented with normal affect and insight. Assessment and plan: Keara was seen today for abdominal pain (stomach ache). Diagnoses and associated orders for this visit: LLQ abdominal pain - Urinalysis Routine Hold Culture;normal - Complete Blood Count W/Diff; normal - Cancel: CT Abdomen Pelvis W/WO; Future - CT Abdomen Pelvis W; Future Follow up - prn documented in this encounter Miscellaneous Notes Assessment & Plan Note - Savannah Irvin PA-C - 12/16/2012 12:13 PM CDT patient has had llq abdominal pain for 3 days. It started with a cramping and pulling sensation in the mid epigastric area. She tried to watch what she was eating. Eating tended to make it worse. She tried tea which didn't help. Mid epi pain is better, but now it has settled in the LLQ. It radiates into her low back. It is constant in her back, but colicky in her left side worse with movement or walking. She takes a colon supplement to flush her colon. Stool is loose and not changed. No melena or hematochezia. She denies dysuria, frequency or urgency. She had a hysterectomy, but her ovaries are left behind. documented in this encounter Plan of Treatment Not on filedocumented as of this encounter Visit Diagnoses Diagnosis LLQ abdominal pain - Primary Abdominal pain, left lower quadrant documented in this encounter Care Teams Chief Nursing Officer Relationship Specialty Start Date End Date Padmini Park PA-C PCP - General Family Practice 04/05/12 01/19/16 documented as of this encounter
--- OUTSIDE RECORDS SUMMARY | 2022-03-07 11:26 | XMS_ITS | Encounter Summary ---
:1970 Author Organization [employer] Address [address] [place] [address] Care Team Providers Name Role Phone Padmini Park PA-C Primary Care Provider Reason for Visit Reason Comments NECK PAIN f/u Encounter Details Date Type Department Care Team Description 04/25/2012 Office Visit [facility], Nonallopathic lesion of sacr al region, not elsewhere classified (Primary Dx); [address] [place] Nonallopathic lesion of thor acic region, not elsewhere classified; [place] [id number] Nonallopathic lesion of cerv ical region, not elsewhere classified; [phone] Spasm of muscle ; Sciatica Social History Tobacco Use Types Packs/Day Years Used Date Smoking Tobacco: Never Smokeless Tobacco: Never Alcohol Use Standard Drinks/Week Comments Yes 0 (1 standard drink = 0.6 oz pure alcoho l) occasional Sex Assigned at Date Recorded Not on file documented as of this encounter Last Filed Vital Signs Vital Sign Reading Time Taken Comments Blood Pressure 128/83 04/25/2012 10:02 AM MULTIPLE CUT OFF SAW OPERATOR Pulse 71 04/25/2012 10:02 AM MULTIPLE CUT OFF SAW OPERATOR Temperature - - Respiratory Rate - - Oxygen Saturation - - Inhaled Oxygen Concentration - - Weight - - Height - - Body Mass Index - - documented in this encounter Progress Notes Enoc Blanca DC - 04/25/2012 10:00 AM CST Patient:Keara Cuellar Subjective: Keara presents today for: Neck, mid back and left low back pain that radiates into her left leg of insidious onset. 10/28 Objective: Palpatory tenderness, subluxation and muscle spasms in and around the cervical, thoracic and lumbosacral regions. Assessment: 1. Nonallopathic lesion of sacral region, not elsewhere classified [facility] [place]; SP 3-4 RGNS ([id number]) 2. Nonallopathic lesion of thoracic region, not elsewhere classified [facility] [place]; SP 3-4 RGNS (06361) 3. Nonallopathic lesion of cervical region, not elsewhere classified [facility] [place]; SP 3-4 RGNS (16431) 4. Spasm of muscle [facility] [place]; SP 3-4 RGNS ([id number]) 5. Sciatica [facility] [place]; SP 3-4 RGNS ([id number]) Plan: Articular adjustments in the cervical, thoracic [...] DECREASE PAIN AND REHABILITATE THE THORACIC REGIONS. IPLE CUT OFF SAW OPERATOR documented in this encounter Plan of Treatment Not on filedocumented as of this encounter Visit Diagnoses Diagnosis Nonallopathic lesion of sacral region, n ot elsewhere classified - Primary Nonallopathic lesion of thoracic region, not elsewhere classified Nonallopathic lesion of cervical region, not elsewhere classified Spasm of muscle Sciatica (HRC) Sciatica documented in this encounter Care Teams Cvt Rn Relationship Specialty Start Date End Date Padmini Park PA-C PCP - General Family Practice 04/05/12 01/19/16 documented as of this encounter
--- OUTSIDE RECORDS SUMMARY | 2022-03-07 11:26 | XMS_ITS | Encounter Summary ---
:1970 Author Organization [employer] Address [address] [place] [address] Care Team Providers Name Role Phone Padmini Park PA-C Primary Care Provider Reason for Visit Reason Comments ROUTINE, FOLLOW-UP L shoulder and upperback irma n Encounter Details Date Type Department Care Team Description 08/21/2012 Office Visit [facility], Nonallopathic lesion of sacr al region, not elsewhere classified (Primary Dx); [address] [place] Nonallopathic lesion of thor acic region, not elsewhere classified; [place] [id number] Nonallopathic lesion of cerv ical region, not elsewhere classified; [phone] Spasm of muscle Social History Tobacco Use Types Packs/Day Years Used Date Smoking Tobacco: Never Smokeless Tobacco: Never Alcohol Use Standard Drinks/Week Comments Yes 0 (1 standard drink = 0.6 oz pure alcoho l) occasional Sex Assigned at Date Recorded Not on file documented as of this encounter Last Filed Vital Signs Vital Sign Reading Time Taken Comments Blood Pressure 129/79 08/21/2012 11:39 AM CDT Pulse 76 08/21/2012 11:39 AM CDT Temperature - - Respiratory Rate 24 08/21/2012 11:39 AM CDT Oxygen Saturation - - Inhaled Oxygen Concentration - - Weight - - Height - - Body Mass Index - - documented in this encounter Progress Notes Enoc Blanca DC - 08/21/2012 11:37 AM CDT Patient:Keara Cuellar Subjective: Keara presents today for: Neck, mid back and left low back pain that radiates into her left leg of insidious onset. Return of symptoms 10/28 Objective: Palpatory tenderness, subluxation and muscle spasms in and around the cervical, thoracic and lumbosacral regions. Assessment: 1. Nonallopathic lesion of sacral region, not elsewhere classified [facility] [place]; SP 3-4 RGNS (52753) 2. Nonallopathic lesion of thoracic region, not elsewhere classified [facility] [place]; SP 3-4 RGNS ([id number]) 3. Nonallopathic lesion of cervical region, not elsewhere classified [facility] [place]; SP 3-4 RGNS (95155) 4. Spasm of muscle [facility] [place]; SP 3-4 RGNS (56231) Plan: Articular adjustments in the cervical, thoracic [...] muscle documented in this encounter Care Teams Service Representative Relationship Specialty Start Date End Date Padmini Park PA-C PCP - General Family Practice 04/05/12 01/19/16 documented as of this encounter
--- OUTSIDE RECORDS SUMMARY | 2022-03-07 11:26 | XMS_ITS | Encounter Summary ---
:1970 Author Organization [facility] Address [address] [place] [address] Care Team Providers Name Role Phone Padmini Park PA-C Primary Care Provider Reason for Visit Reason Comments Headache Encounter Details Date Type Department Care Team Description 09/20/2012 Initial Consult [facility], Migraine , chronic, [address] Neurology MD Dominique without aura, [address] tractable, with [address] status migrainosus [place], [place] ([place]) [phone] Social History Tobacco Use Types Packs/Day Years Used Date Smoking Tobacco: Never Smokeless Tobacco: Never Alcohol Use Standard Drinks/Week Comments Yes 0 (1 standard drink = 0.6 oz pure alcoho l) occasional Sex Assigned at Date Recorded Not on file documented as of this encounter Last Filed Vital Signs Vital Sign Reading Time Taken Comments Blood Pressure 126/87 09/20/2012 12:20 PM CDT Pulse 79 09/20/2012 12:20 PM CDT Temperature - - Respiratory Rate 14 09/20/2012 12:20 PM CDT Oxygen Saturation - - Inhaled Oxygen Concentration - - Weight 75.8 kg (167 lb) 09/20/2012 12:20 PM CDT Height 154.9 cm (5' 1) 09/20/2012 12:20 PM CDT Body Mass Index 31.55 09/20/2012 12:20 PM CDT documented in this encounter Patient Instructions Patient InstructionsDominique Victor MD - 09/20/2012 1:33 PM CDT Chronic migraine with recent progression to status migraine. 1. Prevention (daily) therapy: Increase topiramate (Topamax) by adding 25 mg in the morning and continue 100 mg in the evening. If needed may add another 25 mg in the morning after 2 weeks. 2. Acute therapy until back to prior pattern will use DHE instead of Maxalt: Dihydroergotamine (DHE) - for current use of DHE 1mg/mL three times a day for 7 days in a row, or until headache free for 24 hours. Anti-Nausea agent: Zofran (Ondansetron) 8 mg - 1tablet by mouth up to twice a day as needed for nausea symptoms related to headace and prior to DHE. Max 9 days per month. 3. Naproxen NA (Aleve OTC) 220 mg - 2 tablets 2 times a day. Take with food and Prilosec OTC to decrease stomach irritation. 4. Occipital nerve blocks with Dr. Hernandez. [phone] [facility], [address] [place] [address] September 26 check in at 7:50am Dr. Roblero documented in this encounter Progress Notes Madison Franco RN - 09/20/2012 2:39 PM CDT The patient was seen in the Neurology Clinic today. I educated and instructed pt on self-injection training to utilize DHE SubQ as ordered by Dr. Dominique Victor. She properly return-demonstrated utilizing 3 mL syringes with 1/2 inch needles. She self-injected 0.5 mL of normal saline into her left thigh without difficulty. We reviewed the directions as well as common side effects for DHE. She will inject 1mg/mL three times a day for 7 days in a row or until she is headache free for 24 hours. ASSESSMENT: The patient and I both feel confident that she will be able to utilize DHE SubQ for acute treatment of migraine headache. PLAN: The prescription was provided by Dr. Victor and sent to her pharmacy, please see the medication list. Dominique Victor MD - 09/20/2012 1:09 PM CDT Consults signed by Dominique Victor MD at 09/20/12 1430 Author: Dominique Victor MD Service: (none) Author Type: Physician Filed: 09/20/12 1432 Note Time: 09/20/12 1352 Status: Signed Lathe Set Up Person: Dominique Victor MD (Physician) NAME: KEARA CUELLAR MR#: [id number] CSN: [id number] AUTHENTICATING CLINICIAN: Dominique Victor MD CONFIRM #: [id number] LOC: 223 CLINIC CONSULTATION DATE OF CONSULTATION: 09/20/2012 : 1970 REFERRING PROVIDER: Chirag Metzger PA-C. REASON FOR REFERRAL: Headache. HISTORY OF PRESENT ILLNESS: Ms. Cuellar is a very pleasant 42-year-old female who presents for evaluation of headache. She states that she has had headache since her early 20s without antecedents. Used to self-manage with ibuprofen,but frequency increased to chronic at least 20 days per month, when she sought evaluation by a neurologist in [place]. Was recommended to discontinue ibuprofen and was placed on topiramate, and since being on topiramate at 100 mg a day noted significant improvement of headaches and was getting 1 or 2 per month, managing before with sumatriptan and now with Maxalt. She was doing well until about 2 months ago. 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 She stopped responding to Maxalt. Her primary provider recommended recently prednisone, and she was given ketorolac injection with only mild improvement. Prednisone gave her stomach irritation. She found Zofran 8 mg dissolvable quite helpful. She describes that headache is occipital, mainly on the left side and will progress along the sides to the top of the head and left eye. She has associated photo-, phono-, and osmophobia, nausea. She has not had associated focal neurological symptoms such as visual changes, problem with speech, weakness, sensory symptoms, imbalance, incoordination, vertigo. Headaches are not affected with positional changes or with Valsalva. When she is not working, and is able to be at home at rest in a dark and quiet environment headache is better. She had emesis a couple of times, so she has been able to keep upwith hydration but feels nauseous. She denies any antecedents such as head or neck injury or systemic illness. Denies any recent systemic illness or febrile illness, fevers, chills, night sweats, weight loss. Reports some fatigue because she is having difficulty sleeping with these headaches. Denies chest pain, shortness of breath, heart palpitations, gastrointestinal or genitourinary symptoms, generalized musculoskeletal pain, joint swelling, skin rash. Denies depression, anxiety, or mood swings. She is otherwise in very good health. REVIEW OF SYSTEMS: Pertinent positives as summarized above in the history of present illness. Remainder of complete review of systems is negative. PAST MEDICAL HISTORY: Headaches as detailed above. Partial hysterectomy for uterine fibroids. History of syncopal episode.Breast reduction surgery. . MEDICATIONS: Topiramate 100 mg a day, Flexeril p.r.n., Valium p.r.n., ibuprofen p.r.n., Zofran 8 mg p.r.n., prednisone taper, Maxalt 10 mg p.r.n. ALLERGIES: No known drug allergies. SOCIAL HISTORY: She is . Has 2 daughters, 20 and 21 years old. One daughter lives here with her, and one lives in [place]. She moved here from [place] in March of 2012 because of the job. Denies tobacco. Drinks alcohol socially. Denies illicit drug use. FAMILY HISTORY: To her knowledge, nobody among 1st degree relatives with migraines. Sister with history of thyroid disease and lupus. OBJECTIVE: VITAL SIGNS: BP 126/87. HR 79. RR 14. Weight 167. Height 5???1?? . GENERAL: She is alert, in moderate discomfort due to headache, very pleasant and cooperative. Appears well for stated age. Maintains good eye contact. CARDIOVASCULAR: Heart rate is regular, no murmur. Carotids: No bruits. Peripheral pulses are present. NEUROLOGICAL EXAM: Alert and oriented x3. Speech and conversational language are normal. Recent and remote memory intact. Normal attention span and concentration. Fund of knowledge is appropriate. Cranial nerve exam 2 through 12 is normal including funduscopic exam and visual jane to confrontation. Motor exam reveals normal muscle tone and muscle strength throughout. Deep tendon reflexes are symmetric, and plantar responses are flexors. Cerebellar testing is normal. Sensory exam is normal to all modalities. Gait is normal including toe, heel, and tandem. Romberg is negative. ASSESSMENT: Episodic migraine without aura with recent progression into status migraine. RECOMMENDATIONS: 1. Will transition to acute therapy with dihydroergotamine (DHE). While she is in current headache pattern, she will not be responding to Triptan therapy, so will discontinue Maxalt. May resume once back into prior episodic pattern. Our headache nurse instructed her on proper injection technique, dosing, timing, and limits. For nausea related to therapy and to migraine, has available Zofran 8 mg dissolvable. Found this to be effective so may continue to use as instructed. 2. Will increase topiramate by adding 25 mg in the morning. Continue 100 mg in the evening. If needed, may consider increasing by additional 25 mg after a couple of weeks. She has been tolerating topiramate well. 3. Referral to PMR for occipital nerve blocks bilaterally. Her neurological exam today was normal. She does not report any focal neurological symptoms, systemic illness, or worrisome headache features. Because of this, I did not proceed with head imaging at this time. Should she not respond to the above management, then will proceed with head imaging with MRI. She will follow up in 2-3 months, or earlier if needed. I asked her to maintain headache calendars, and bring with her to followup visit. Total time 60 minutes, counseling time 40 minutes. Counseled the patient about headache pathophysiology, associated symptoms, common triggers, prognosis, risks for progression, treatment options including non-pharmacological management and alternative treatments. Discussed recommended medications??? side effects, dosing, timing and limits, and importance of compliance. She was given detailed written instructions on recommended treatment plan. I attempted to answer any questions she had regarding theabove and she agreed to proceed. DS:MEDQ C: CONFIRM #: [id number] documented in this encounter Plan of Treatment Not on filedocumented as of this encounter Visit Diagnoses Diagnosis Migraine, chronic, without aura, intract able, with status migrainosus - Primary Chronic migraine without aura, with intr actable migraine, so stated, with status migrainosus documented in this encounter Care Teams Director Digital Sales Relationship Specialty Start Date End Date Padmini Park PA-C PCP - General Family Practice 04/05/12 01/19/16 documented as of this encounter
--- OUTSIDE RECORDS SUMMARY | 2022-03-07 11:27 | XMS_ITS | Encounter Summary ---
:1970 Author Organization [employer] Address [address] [place] [address] Care Team Providers Name Role Phone Chirag Metzger PA-C Primary Care Provider Reason for Visit Reason Comments EYE DISCHARGE also red, itchy since wkend; pt recently started pheniramine for weight loss Encounter Details Date Type Department Care Team Description 02/20/2012 Office Visit Padmini Pollock, Conjunctivi tis (Primary Practice PA-C Dx) [address] [facility] [id number] [place] [address] [place] [address] [place], [place] [phone] [address] Social History Tobacco Use Types Packs/Day Years Used Date Smoking Tobacco: Never Smokeless Tobacco: Never Alcohol Use Standard Drinks/Week Comments Yes 0 (1 standard drink = 0.6 oz pure alcoho l) occasional Sex Assigned at Date Recorded Not on file documented as of this encounter Last Filed Vital Signs Vital Sign Reading Time Taken Comments Blood Pressure 130/87 02/20/2012 8:36 AM CDT Pulse 92 02/20/2012 8:36 AM CDT Temperature 36.5 ??C (97.7 ??F) 02/20/2012 8:36 AM CDT Respiratory Rate - - Oxygen Saturation - - Inhaled Oxygen Concentration - - Weight 81.2 kg (179 lb) 02/20/2012 8:36 AM CDT Height 155.6 cm (5' 1.25) 02/20/2012 8:36 AM CDT Body Mass Index 33.55 02/20/2012 8:36 AM CDT documented in this encounter Patient Instructions Patient InstructionsSchPadmini mooney PA-C - 02/20/2012 8:53 AM CDT Use the allergy drops four times a day until your symptoms improve. You can try a lubricating eye drop in between to help with the film and irritation. Thank you so much for choosing [facility]. It was a pleasure taking care of you today! Important phone numbers: Daytime Clinic information: [phone] Appointment center: [phone] Evenings & Weekends CareLine: [phone] Urgent Care Hotline: [phone] [facility], Emergency Department [address] [place] [address] documented in this encounter Progress Notes Padmini Park PA-C - 02/20/2012 8:46 AM CDT Subjective Keara Cuellar is a 41 yr old female who is here presenting with redness of, itching of, mucoid discharge from and aching both eyes for 3 days. HPI There has not been exposure to pink eye. She does not wear contact lenses. She describes the pain asitching and aching and the discharge as mucous. The discharge is only present in the mornings when she wakes up. There has been change or loss of vision - blurriness. Current home treatments so far: nothing. PMH Eye trauma? No Glaucoma? No Other? No ROS Other symptoms: none. Medications: Current Outpatient Prescriptions Medication Sig ??? Cholecalciferol (VITAMIN D OR) daily. Allergies: Review of patient's allergies indicates no known allergies. Objective Vitals: BP 130/87 Pulse 92 Temp(Src) 97.7 ??F (36.5 ??C) (Tympanic) Ht 5' 1.25 (1.556 m) Wt179 lb (81.194 kg) BMI 33.55 kg/m2 Appearance: stated age, healthy, alert, in no distress Eyes: Right eye: LAM, EOM intact, conjunctiva clear and slight allergic shiner Left eye: LAM, EOM intact and conjunctiva clear, slight allergic shiner Nose: pale mucosa Skin: normal Assessment 1. Conjunctivitis naphazoline-pheniramine (AKA NAPHCON-A) 0.025-0.3 % eye drop solution Plan Allergy eye drops until symptoms improve May try lubricating drops in between prn See patient education and prescribed medication. Padmini Park PA-C documented in this encounter Plan of Treatment Not on filedocumented as of this encounter Visit Diagnoses Diagnosis Conjunctivitis - Primary Conjunctivitis, unspecified documented in this encounter Care Teams Kier Pleater Relationship Specialty Start Date End Date Chirag Metzger PA-C PCP - General 08/17/11 04/04/12 [address] [place] [address] documented as of this encounter
--- OUTSIDE RECORDS SUMMARY | 2022-03-07 11:27 | XMS_ITS | Encounter Summary ---
:1970 Author Organization [employer] Address [address] [place] [address] Care Team Providers Name Role Phone Chirag Metzger PA-C Primary Care Provider Reason for Visit Reason Comments Back Pain Encounter Details Date Type Department Care Team Description 12/07/2011 Telephone Chirag Chopra PA-C Back Pain [address] [place] [id number] [place] [address] [phone] (Wo rk) Social History Tobacco Use Types Packs/Day Years Used Date Smoking Tobacco: Never Assessed Sex Assigned at Date Recorded Not on file documented as of this encounter Nursing Notes Karen Lyons RN - 12/07/2011 3:42 PM CDT Explained that Chirag would need to see and evaluate to prescribe medications. Pt cannot come until after work. Will go to . Luna Pryor - 12/07/2011 3:25 PM CDT Pt states that she has been seeing a Chiropractor through for her back pain/ Pt states that she asked the Chiro for a muscle relaxer but he was unable to prescribe/ Pt was told to call and ask her PCP for an rx for muscle relaxer/ Please Advise/ Pharm is [facility] in [place] documented in this encounter Plan of Treatment Not on filedocumented as of this encounter Visit Diagnoses Not on filedocumented in this encounter Care Teams Insurance Account Specialist Relationship Specialty Start Date End Date Chirag Metzger PA-C PCP - General 08/17/11 04/04/12 [address] [place] [id number] documented as of this encounter
--- OUTSIDE RECORDS SUMMARY | 2022-03-07 11:27 | XMS_ITS | Encounter Summary ---
:1970 Author Organization [facility] Address [address] [place] [address] Care Team Providers Name Role Phone Chirag Metzger PA-C Primary Care Provider Reason for Visit Reason Comments Refill Encounter Details Date Type Department Care Team Description 03/01/2012 Refill Chirag Chopra PA-C Refill [address] [place] [id number] [place] [address] [phone] (Wo rk) Social History Tobacco Use Types Packs/Day Years Used Date Smoking Tobacco: Never Smokeless Tobacco: Never Alcohol Use Standard Drinks/Week Comments Yes 0 (1 standard drink = 0.6 oz pure alcoho l) occasional Sex Assigned at Date Recorded Not on file documented as of this encounter Nursing Notes Carla Sherwood - 03/01/2012 11:26 AM CDT RX faxed to [facility] [place]. Chirag Metzger PA-C - 03/01/2012 10:39 AM CDT Rx at Barb's desk Sofie Bryan, RN - 03/01/2012 9:08 AM CDT Action requested: Medication Request Valium 5 mg Additional Info: Requesting rx be sent for Valium 5 mg. Pt will be on a 10 day bus trip and reports taking Valium in the past which has helped with sx. Pt is requesting an rx be sent for 12 tabs. Only need to call if problem with filling rx. Pharmacy correct. Keara Cuellar (Self) [phone] (H) Naheed Ortega - 03/01/2012 8:59 AM CDT Patient is requesting a prescription for medication for motion sickness and to relax while traveling. Patient has received Diazepam and Dramamine in the past and would like to receive it again for a 10day trip she is taking. Please advise. documented in this encounter Plan of Treatment Not on filedocumented as of this encounter Visit Diagnoses Diagnosis Motion sickness - Primary documented in this encounter Care Teams Classification Analyst Relationship Specialty Start Date End Date Chirag Metzger PA-C PCP - General 08/17/11 04/04/12 [address] [place], [place] [address] documented as of this encounter
--- OUTSIDE RECORDS SUMMARY | 2022-03-07 11:27 | XMS_ITS | Encounter Summary ---
:1970 Author Organization [facility] Address [address] [place] [address] Care Team Providers Name Role Phone Chirag Metzger PA-C Primary Care Provider Encounter Details Date Type Department Care Team Description 10/31/2011 Correspondence [facility] MELANY BlancaPRACTANNE PT [address] [facility] Enoc Lazaro [place] [phone] Social History Tobacco Use Types Packs/Day Years Used Date Smoking Tobacco: Never Assessed Sex Assigned at Date Recorded Not on file documented as of this encounter Progress Notes Enoc Blanca DC - 10/31/2011 12:00 AM CDT documented in this encounter Plan of Treatment Not on filedocumented as of this encounter Visit Diagnoses Not on filedocumented in this encounter Care Teams Foil Operator Relationship Specialty Start Date End Date Chirag Metzger PA-C PCP - General Physician [facility] 07/06/[address] [id number] documented as of this encounter
--- OUTSIDE RECORDS SUMMARY | 2022-03-07 11:27 | XMS_ITS | Encounter Summary ---
:1970 Author Organization [employer] Address [address] [place] [address] Care Team Providers Name Role Phone Chirag Metzger PA-C Primary Care Provider Reason for Visit Reason Comments Medication Questions Encounter Details Date Type Department Care Team Description 02/19/2012 Telephone [facility] Chirag Metzger PA-C Medication Questions [address] [place] [address] [place] [id number] (Wo rk) Social History Tobacco Use Types Packs/Day Years Used Date Smoking Tobacco: Never Assessed Sex Assigned at Date Recorded Not on file documented as of this encounter Nursing Notes Cheryl Pena RN - 02/19/2012 5:54 PM CDT Patient calling in. She thinks she has pink eye, her eyelashes are crusty in the morning. She will got to urgent care to be seen. documented in this encounter Plan of Treatment Not on filedocumented as of this encounter Visit Diagnoses Not on filedocumented in this encounter Care Teams Licensed Insurance Sales Agent Relationship Specialty Start Date End Date Chirag Metzger PA-C PCP - General 08/17/11 04/04/12 [address] [place] [address] documented as of this encounter
--- OUTSIDE RECORDS SUMMARY | 2022-03-07 11:27 | XMS_ITS | Encounter Summary ---
:1970 Author Organization [employer] Address [address] [place] [address] Care Team Providers Name Role Phone Chirag Metzger PA-C Primary Care Provider Reason for Visit Reason Comments Patient Calling Back Encounter Details Date Type Department Care Team Description 01/15/2012 Telephone Chirag Chopra PA-C Patient Calling Back [address] [place] [address] [place] [id number] [phone] (Wo rk) Social History Tobacco Use Types Packs/Day Years Used Date Smoking Tobacco: Never Assessed Sex Assigned at Date Recorded Not on file documented as of this encounter Nursing Notes Alexandria Davison MA - 01/16/2012 4:12 PM CDT LM note is ready for steel pickler on FP side. Chirag Metzger PA-C - 01/16/2012 4:07 PM CDT letter on Barb's desk Alexandria Davison MA - 01/16/2012 10:26 AM CDT LM with the info from Chirag. Chirag Metzger PA-C - 01/16/2012 10:22 AM CDT Please let Keara know that I was out of the clinic yesterday, and just got her phone request this morning. I will do the letter today, and she will be called when it is ready. If there is any questionabout degree of tint that would be required, I am not capable of determining that, but I can say that you need tinted windows in general. Please send back to me after you've notified patient of above. Renetta Mena - 01/15/2012 3:50 PM CDT patient calling back to see if her letter is ready yet Naheed Ortega - 01/15/2012 8:00 AM CDT Patient states that she needs a letter that it is a medical necessity that she has tinted windows inher car due to her migraine headaches. Patient states that she has seen Chirag Metzger for migraines. Patient needs this as soon as possible as she has been pulled over for having tinted windows. Please advise when available and patient will steel pickler. documented in this encounter Miscellaneous Notes Letter - 01/15/2012 12:00 AM CDT Images from the original note were not included. [facility] [address] [place] [address] January 16, 2012 To Whom it May Concern: Re: Keara Griselda ARCELIA Cuellar 1970 Ms. Cuellar carries a diagnosis of migraine headaches. One of her triggers is bright light in her eyes,including sunlight in general, sunlight bouncing off snow, etc. For this reason, Ms. Cuellar has tintedwindows in her car to prevent this trigger from occurring while driving. If you have any questions or concerns, please don't hesitate to call, . Sincerely, Chirag Metzger PA-C IVAL STUDIES PROFESSOR documented in this encounter Plan of Treatment Not on filedocumented as of this encounter Visit Diagnoses Not on filedocumented in this encounter Care Teams Canvas Worker Apprentice Relationship Specialty Start Date End Date Chirag Metzger PA-C PCP - General 08/17/11 04/04/[address] [place] [address] documented as of this encounter
--- OUTSIDE RECORDS SUMMARY | 2022-03-07 11:27 | XMS_ITS | Encounter Summary ---
:1970 Author Organization [employer] Address [address] [place] [address] Care Team Providers Name Role Phone Chirag Metzger PA-C Primary Care Provider Reason for Visit Reason Comments BACK PAIN, LOW and neck. Started a couple w eeks ago and continues to get worse. Encounter Details Date Type Department Care Team Description 02/20/2012 Office Visit [facility] [place], Nonallopathic lesion of sacr al region, not elsewhere classified (Primary Dx); [address] [place]az[place] Nonallopathic lesion of thor acic region, not elsewhere classified; [place] [id number] Nonallopathic lesion of cerv ical region, not elsewhere classified; [phone] Spasm of muscle ; Sciatica Social History [...] Time Taken Comments Blood Pressure 130/87 02/20/2012 8:05 AM CDT Pulse 92 02/20/2012 8:05 AM CDT Temperature - - Respiratory Rate - - Oxygen Saturation - - Inhaled Oxygen Concentration - - Weight - - Height - - Body Mass Index - - documented in this encounter Progress Notes Enoc Blanca DC - 02/20/2012 8:02 AM CDT Patient:Keara Cuellar Subjective: Keara presents today for: Neck, mid back and left low back pain that radiates into her left leg of insidious onset. Return of symptoms 12/28 Objective: Palpatory tenderness, subluxation and muscle spasms in and around the cervical, thoracic and lumbosacral regions. Assessment: 1. Nonallopathic lesion of sacral region, not elsewhere classified CHIROPRACTIC MANIP [place]; SP 3-4 RGNS ([id number]) 2. Nonallopathic lesion of thoracic region, not elsewhere classified CHIROPRACTIC MANIP [place]; SP 3-4 RGNS ([id number]) 3. Nonallopathic lesion of cervical region, not elsewhere classified CHIROPRACTIC MANIP [place]; SP 3-4 RGNS ([id number]) 4. Spasm of muscle CHIROPRACTIC MANIP [place]; SP 3-4 RGNS ([id number]) 5. Sciatica CHIROPRACTIC MANIP [place]; SP 3-4 RGNS ([id number]) Plan: Articular adjustments in the cervical, thoracic [...] AND REHABILITATE THE LUMBOSACRAL AND HIP REGIONS. documented in this encounter Plan of Treatment Not on filedocumented as of this encounter Visit Diagnoses Diagnosis Nonallopathic lesion of sacral region, n ot elsewhere classified - Primary Nonallopathic lesion of thoracic region, not elsewhere classified Nonallopathic lesion of cervical region, not elsewhere classified Spasm of muscle Sciatica (HRC) Sciatica documented in this encounter Care Teams Practicing Urologist Relationship Specialty Start Date End Date Chirag Metzger PA-C PCP - General 08/17/11 04/04/12 [address] [place] [address] documented as of this encounter
--- OUTSIDE RECORDS SUMMARY | 2022-03-07 11:27 | XMS_ITS | Encounter Summary ---
:1970 Author Organization [employer] Address [address] [place] [address] Care Team Providers Name Role Phone Chirag Metzger PA-C Primary Care Provider Reason for Visit Reason Comments CONJUNCTIVITIS Encounter Details Date Type Department Care Team Description 02/19/2012 Telephone Chirag Chopra PA-C CONJUNCTIVITIS [address] [place] [address] [place] [address] [phone] (Wo rk) Social History Tobacco Use Types Packs/Day Years Used Date Smoking Tobacco: Never Assessed Sex Assigned at Date Recorded Not on file documented as of this encounter Nursing Notes Karen Lyons RN - 02/19/2012 8:13 AM CDT Left message that we do not treat adults over the phone, advised appointment Donna Pemberton - 02/19/2012 7:04 AM CDT [facility], Patient is checking to see if she can be treated over the phone without an appt? Pharmacy:[facility] documented in this encounter Plan of Treatment Not on filedocumented as of this encounter Visit Diagnoses Not on filedocumented in this encounter Care Teams Visual Basic .Net Developer Relationship Specialty Start Date End Date Chirag Metzger PA-C PCP - General 08/17/11 04/04/[address] [place] [id number] documented as of this encounter
--- OUTSIDE RECORDS SUMMARY | 2022-03-07 11:27 | XMS_ITS | Encounter Summary ---
:1970 Author Organization [employer] Address [address] [place] [address] Care Team Providers Name Role Phone Chirag Metzger PA-C Primary Care Provider Reason for Visit Reason Comments BACK PAIN, LOW Encounter Details Date Type Department Care Team Description 12/07/2011 Office Visit [facility], Nonallopathic lesion of sacr al region, not elsewhere classified (Primary Dx); [address] [place] Sciatica; [place] [phone] Spasm of muscle [phone] Social History Tobacco Use Types Packs/Day Years Used Date Smoking Tobacco: Never Assessed Sex Assigned at Date Recorded Not on file documented as of this encounter Progress Notes Enoc Blanca DC - 12/07/2011 8:05 AM CDT Patient:Keara Villalobos Polo Subjective: Keara presents today for: left low back pain. Worse while sitting and laying on her left side. Objective: Palpatory tenderness, subluxation and muscle spasms in and around the lumbosacral region.Positive left [place]'s test. Ortho/Neuro-WNL. Subluxation left sacroliliac. Assessment: No diagnosis found. Plan: Articular adjustments in the lumbosacral region with manual therapy for 8 - 9 minutes to the lumbosacral and surrounding hip regions to increase range of motion, decrease swelling and improve function. Next Visit: 2 days 4-6 treatments anticipated PIRIFORMIS EXERCISES: 3 REPETITIONS @ 30 SECONDS/2-3 TIMES PER DAY TO IMPROVE FLEXIBILITY/FUNCTIO, DECREASE PAIN AND REHABILITATE THE LUMBOSACRAL AND HIP REGIONS. documented in this encounter Plan of Treatment Not on filedocumented as of this encounter Visit Diagnoses Diagnosis Nonallopathic lesion of sacral region, n ot elsewhere classified - Primary Sciatica (HRC) Sciatica Spasm of muscle documented in this encounter Care Teams Artist And Repertoire Manager Relationship Specialty Start Date End Date Chirag Metzger PA-C PCP - General 08/17/11 04/04/[address] [place] [id number] documented as of this encounter
--- OUTSIDE RECORDS SUMMARY | 2022-03-07 11:27 | XMS_ITS | Encounter Summary ---
:1970 Author Organization [employer] Address [address] [place] [address] Care Team Providers Name Role Phone Chirag Metzger PA-C Primary Care Provider Reason for Visit Reason Comments BACK PAIN with leg pain Encounter Details Date Type Department Care Team Description 12/12/2011 Office Visit [facility], Nonallopathic lesion of sacr al region, not elsewhere classified (Primary Dx); [address] [facility] [place] Sciatica; [place] [phone] Spasm of muscle [phone] Social History Tobacco Use Types Packs/Day Years Used Date Smoking Tobacco: Never Assessed Sex Assigned at Date Recorded Not on file documented as of this encounter Last Filed Vital Signs Vital Sign Reading Time Taken Comments Blood Pressure 124/83 12/12/2011 8:14 AM CDT Pulse 66 12/12/2011 8:14 AM CDT Temperature - - Respiratory Rate - - Oxygen Saturation - - Inhaled Oxygen Concentration - - Weight - - Height - - Body Mass Index - - documented in this encounter Progress Notes Enoc Blanca DC - 12/12/2011 8:20 AM CDT Patient:Keara Cuellar Subjective: Keara presents today for: left low back pain. Worse while sitting and laying on her left side. Slight improvement -11/27 Objective: Palpatory tenderness, subluxation and muscle spasms in and around the lumbosacral region.Positive left [place]'s test. Ortho/Neuro-WNL. Subluxation left sacroliliac. Assessment: 1. Nonallopathic lesion of sacral region, not elsewhere classified CHIROPRACTIC MANIP [place]; SP 1-2 RGNS ([id number]) 2. Sciatica CHIROPRACTIC MANIP [place]; SP 1-2 RGNS ([id number]) 3. Spasm of muscle CHIROPRACTIC MANIP [place]; SP 1-2 RGNS ([id number]) Plan: Articular adjustments in the lumbosacral region [...] muscle documented in this encounter Care Teams Food Safety Specialist Relationship Specialty Start Date End Date Chirag Metzger PA-C PCP - General 08/17/11 04/04/12 [address] [place], [place] [address] documented as of this encounter
--- OUTSIDE RECORDS SUMMARY | 2022-03-07 11:27 | XMS_ITS | Encounter Summary ---
:1970 Author Organization [employer] Address [address] [place] [address] Care Team Providers Name Role Phone Chirag Metzger PA-C Primary Care Provider Reason for Visit Reason Onset Date Comments SCIATICA 12/07/2011 Encounter Details Date Type Department Care Team Description 12/07/2011 Telephone [facility] [place] Blanca SCIATICA [address] [place], [place] [address] Social History Tobacco Use Types Packs/Day Years Used Date Smoking Tobacco: Never Assessed Sex Assigned at Date Recorded Not on file documented as of this encounter Nursing Notes Enoc Blanca DC - 12/08/2011 10:55 AM CDT Called and instructed Keara to call her primary care provider to request medication. Padmini Oakley - 12/07/2011 2:42 PM CDT Pt is in a lot of pain, would like some medication like muscle relaxant or similar for this pain, itis getting worse throughout the day. Please call her today to advise. documented in this encounter Plan of Treatment Not on filedocumented as of this encounter Visit Diagnoses Not on filedocumented in this encounter Care Teams Md Senior Research Scientist Relationship Specialty Start Date End Date Chirag Metzger PA-C PCP - General 08/17/11 04/04/[address] [place] [id number] documented as of this encounter
--- OUTSIDE RECORDS SUMMARY | 2022-03-07 11:28 | XMS_ITS | Encounter Summary ---
:1970 Author Organization [facility] Address [address] [place] [address] Care Team Providers Name Role Phone Oh Gray MD Primary Care Provider Encounter Details Date Type Department Care Team Description 04/23/2001 Office Visit [facility] Magnus Fito, OD ASTIGMATISM NOS; [address] [facility] [facility] [place], [place] [address] [facility] [phone] [place] [address] (Wo rk) Social History Tobacco Use Types Packs/Day Years Used Date Smoking Tobacco: Never Assessed Sex Assigned at Date Recorded Not on file documented as of this encounter Plan of Treatment Not on filedocumented as of this encounter Visit Diagnoses Diagnosis Astigmatism, unspecified Examination of eyes and vision documented in this encounter Care Teams Retail Supervisor Relationship Specialty Start Date End Date Oh Gray MD PCP - General 04/05/00 06/30/07 [facility] [address] [place], [place] [id number] documented as of this encounter
--- OUTSIDE RECORDS SUMMARY | 2022-03-07 11:28 | XMS_ITS | Encounter Summary ---
:1970 Author Organization [facility] Address [address] [place] [address] Care Team Providers Name Role Phone Unassigned, Provider Primary Care Provider Unavailable Encounter Details Date Type Department Care Team Description 11/11/2002 PN Conversion [place] [address] [place] [address] Social History Tobacco Use Types Packs/Day Years Used Date Smoking Tobacco: Never Assessed Sex Assigned at Date Recorded Not on file documented as of this encounter Progress Notes Thony Escobar MD - 11/11/2002 12:01 AM CDT Progress Notes signed by Thony Escobar MD at 05/18/03 1353 Author: Thony Escobar MD Service: (none) Author Type: Physician Filed: 09/08/10 1445 Note Time: 11/11/02 0001 Status: Signed Algorithm Design Engineer: Thony Escobar MD (Physician) NAME: KEARA ROB MR: [id number] ACCT: [id number] VISIT: [id number] DICTATING CLINICIAN: OG ESCOBAR MD JOB: [id number] CLINIC PROGRESS NOTE DATE OF VISIT: 11/11/2002 SUBJECTIVE: This is a 32-year-old female with one week of urgency and dysuria. This has gotten worse over the last few days. She developed some lower abdominal pressure. No back pain. No nausea or vomiting. No fever. No vaginal symptoms. ADR/ALLERGIES: NONE. MEDICATIONS: Meridia. PAST MEDICAL HISTORY: None. OBJECTIVE: VS: BP: 120/82. T: 97.5. P: 76. R: 16. GENERAL: In no acute distress. ABDOMEN: Flat, soft, nontender. There is some mild suprapubic pressure. There are no masses. No CVA tenderness. UA shows 10-25 white cells, trace leukocyte esterase, otherwise negative. ASSESSMENT: Probable UTI. PLAN: Urine culture was sent. The patient is started on Bactrim DS one p.o. b.i.d. times two days. Symptoms should resolve. If they do not resolve, worsen , or change, please return for reevaluation. TT: CT: [id number] C: 11/12/02 19:55 DOCUMENT: [id number] ASSEMBLER documented in this encounter Plan of Treatment Not on filedocumented as of this encounter Visit Diagnoses Not on filedocumented in this encounter Care Teams Adult Daycare Coordinator Relationship Specialty Start Date End Date Unassigned, Provider PCP - General 07/01/07 08/16/[address] [place] [address] documented as of this encounter
--- OUTSIDE RECORDS SUMMARY | 2022-03-07 11:28 | XMS_ITS | Encounter Summary ---
:1970 Author Organization [employer] Address [address] [place] [address] Care Team Providers Name Role Phone Chirag Metzger PA-C Primary Care Provider Reason for Visit Reason Comments URI Encounter Details Date Type Department Care Team Description 09/26/2011 Office Visit [facility] Bo, Tracheobronch itis (Primary Medicine LION Dx) [address] [place] [address] [place] [address] [phone] Social History Tobacco Use Types Packs/Day Years Used Date Smoking Tobacco: Never Assessed Sex Assigned at Date Recorded Not on file documented as of this encounter Last Filed Vital Signs Vital Sign Reading Time Taken Comments Blood Pressure 104/64 09/26/2011 9:32 AM CDT Pulse 72 09/26/2011 9:32 AM CDT Temperature - - Respiratory Rate - - Oxygen Saturation 99% 09/26/2011 9:32 AM CDT Inhaled Oxygen Concentration - - Weight - - Height - - Body Mass Index - - documented in this encounter Patient Instructions Patient InstructionsChirag Metzger PA-C - 09/26/2011 9:46 AM CDT Thank you for enrolling in [employer]. Please follow the instructions below to securely access your online medical record. [facility] allows you to send messages to your doctor, view your test results, renewyour prescriptions, schedule appointments, and more. How Do I Sign Up? 1. In your Internet browser, go to: [email or web address] 2. Click on the Sign Up Now link in the Sign In box. You will see the New Member Sign Up page. 3. Enter your [facility] Access Code exactly as it appears below. You will not need to use this code after you???ve completed the sign-up process. If you do not sign up before the expiration date, you must request a new code. [facility] Access Code: [email or web address] Expires: 10/26/11 09:34 AM 4. Enter your Social Security Number ([id number]) and Date of (mm/dd/yyyy) as indicated and click Submit. You will be taken to the next sign- up page. 5. Create a [facility] ID. This will be your [facility] login ID and cannot be changed, so think of one that is secure and easy to remember. 6. Create a [facility] password. You can change your password at any time. 7. Enter your Password Reset Question and Answer. This can be used at a later time if you forget your password. 8. Enter your e-mail address. You will receive e-mail notification when new information is availablein [facility]. 9. Click Sign Up. You can now view your medical record. Additional Information If you have questions, you can call [phone] to talk to our [facility] staff. Remember, [facility] is NOT to be used for urgent needs. For medical emergencies, dial 911. Trial of Delsym for cough suppression without sedation. Alternate Tylenol and ibuprofen every 3 hours for throat pain. Gargle warm saltwater, suck on hard candies, drink plenty of fluids. documented in this encounter Progress Notes Chirag Metzger PA-C - 09/26/2011 9:51 AM CDT SUBJECTIVE: This 41 y.o. female presents today with the following concern(s): Was seen 6 days ago for severe sore throat, had negative strep and was diagnosed with uvulitis. She was advised in symptomatic treatments. Since then, she has developed nasal congestion, nasal drainage, terrible cough, sleepdisrupted by cough, total laryngitis, chest pain and headache with cough. Has not been able to sleepfor a few nights now. Exhausted. Feeling feverish, but has no thermometer at home to check her temp.Has tried multiple OTC cough and cold formulas, but nothing is helping. Adverse Drug Reactions: has no known allergies. Medications: has a current medication list which includes ibuprofen, rizatriptan, and topiramate. Tobacco History: reports that she has never smoked. She has never used smokeless tobacco. Alcohol History: reports that she drinks about 1.8 ounces of alcohol per week. OBJECTIVE: Vital Signs: BP 104/64 Pulse 72 Temp(Src) 210.4 ??F (99.1 ??C) (Oral) SpO2 99% General appearance: alert, cooperative, no distress, appears stated age, breathing comfortably, voice is just a whisper, Eyes: conjunctivae/corneas clear. PERRL, EOM's intact. Fundi benign, Ears: normal TM's and external ear canals AU, Nose: clear discharge, nontender sinuses, Throat: lips, mucosa, and tongue normal; teeth and gums normal and abnormal findings: mild erythema without tonsillar hypertrophy or exudates, no lesions, Neck: supple, symmetrical, trachea midline and no adenopathy, Lungs: clear to auscultation bilaterally and Heart: regular rate and rhythm, S1, S2 normal, no murmur, click, rub or gallop ASSESSMENT/PLAN: Keara was seen today for uri (cold). Diagnoses and associated orders for this visit: Tracheobronchitis - azithromycin (ZITHROMAX) 250 mg tablet; Take by mouth. Take 2 tablets by mouth on day 1, then take1 tablet by mouth daily on days 2-5. - predniSONE (DELTASONE) 20 mg tablet; Take 1 tablet by mouth 2 times daily. Take with food. - guaifenesin-codeine (ROBITUSSIN AC) 10-100 mg/5 mL syrup; Take 5-10 mLs by mouth at bedtime as needed for Cough. Discussed the diagnosis, the purpose of each medication, how to take each medication, potential benefits, and potential adverse effects. Discussed symptomatic OTC treatments. Push fluids and rest. Vocal rest encouraged. Return to clinic as needed. The patient was discharged ambulatory and in stable condition. *SH~DNS~SOAP documented in this encounter Plan of Treatment Not on filedocumented as of this encounter Visit Diagnoses Diagnosis Tracheobronchitis - Primary Bronchitis, not specified as acute or ch ronic documented in this encounter Care Teams 3D Technologist Relationship Specialty Start Date End Date Chirag Metzger PA-C PCP - General 08/17/11 04/04/[address] [place] [id number] documented as of this encounter
--- OUTSIDE RECORDS SUMMARY | 2022-03-07 11:28 | XMS_ITS | Encounter Summary ---
:1970 Author Organization [facility] Address [address] [place] [address] Care Team Providers Name Role Phone Unassigned, Provider Primary Care Provider Unavailable Encounter Details Date Type Department Care Team Description 09/20/2010 PN Conversion Only [facility] Ronen Munoz W, Medicine ENGINEERING COORDINATOR, RESEARCH PHARMACIST [address] [place] [address] [place] [address] [phone] (Wo rk) Social History Tobacco Use Types Packs/Day Years Used Date Smoking Tobacco: Never Assessed Sex Assigned at Date Recorded Not on file documented as of this encounter Plan of Treatment Not on filedocumented as of this encounter Visit Diagnoses Not on filedocumented in this encounter Care Teams Building Custodial Supervisor Relationship Specialty Start Date End Date Unassigned, Provider PCP - General 07/01/07 08/16/[address] [place] [address] documented as of this encounter
--- OUTSIDE RECORDS SUMMARY | 2022-03-07 11:28 | XMS_ITS | Encounter Summary ---
:1970 Author Organization [employer] Address [address] [place] [address] Care Team Providers Name Role Phone Chirag Metzger PA-C Primary Care Provider Reason for Visit Reason Comments BACK PAIN, LOW x1 month LEG PAIN left Encounter Details Date Type Department Care Team Description 10/31/2011 Office Visit [facility], Nonallopathic lesion of sacr al region, not elsewhere classified (Primary Dx); [address] [facility] [address] [place] Sciatica; [place] [address] Spasm of muscle [phone] Social History Tobacco Use Types Packs/Day Years Used Date Smoking Tobacco: Never Assessed Sex Assigned at Date Recorded Not on file documented as of this encounter Last Filed Vital Signs Vital Sign Reading Time Taken Comments Blood Pressure 131/85 10/31/2011 10:04 AM CDT Pulse 61 10/31/2011 10:04 AM CDT Temperature - - Respiratory Rate - - Oxygen Saturation - - Inhaled Oxygen Concentration - - Weight 82.4 kg (181 lb 9.6 oz) 10/31/2011 10:04 AM CDT Height 156.8 cm (5' 1.75) 10/31/2011 10:04 AM CDT Body Mass Index 33.48 10/31/2011 10:04 AM CDT documented in this encounter Patient Instructions Patient InstructionsFlEnoc lee DC - 10/31/2011 10:48 AM CDT PIRIFORMIS EXERCISES: 3 REPETITIONS @ 30 SECONDS/2-3 TIMES PER DAY TO IMPROVE FLEXIBILITY/FUNCTIO, DECREASE PAIN AND REHABILITATE THE LUMBOSACRAL AND HIP REGIONS. documented in this encounter Progress Notes Enoc Blanca DC - 10/31/2011 10:46 AM CDT Patient:Keara Cuellar Subjective: Keara presents today for: left low back pain from gardening. Worse while sitting and laying on her left side. Objective: Palpatory tenderness, subluxation and muscle spasms in and around the lumbosacral region.Positive left [place]'s test. Ortho/Neuro-WNL. Subluxation left sacroliliac. Assessment: 1. Nonallopathic lesion of sacral region, not elsewhere classified NEW PT VISIT LEVEL 2 (03342)20 MIN, CHIROPRACTIC MANIP [place]; SP 1-2 RGNS (26445) 2. Sciatica NEW PT VISIT LEVEL 2 (92269)20 MIN, CHIROPRACTIC MANIP [place]; SP 1-2 RGNS (24728) 3. Spasm of muscle NEW PT VISIT LEVEL 2 (12019)20 MIN, CHIROPRACTIC MANIP [place]; SP 1-2 RGNS (55765) Plan: Articular adjustments in the lumbosacral region [...] muscle documented in this encounter Care Teams Urban Forester Relationship Specialty Start Date End Date Chirag Metzger PA-C PCP - General 08/17/11 04/04/12 [address] [place] [address] documented as of this encounter
--- OUTSIDE RECORDS SUMMARY | 2022-03-07 11:28 | XMS_ITS | Encounter Summary ---
:1970 Author Organization [facility] Address [address] [place] [address] Care Team Providers Name Role Phone Unassigned, Provider Primary Care Provider Unavailable Encounter Details Date Type Department Care Team Description 03/27/2003 PN Conversion Only [place] [address] [address] [place] [address] Social History Tobacco Use Types Packs/Day Years Used Date Smoking Tobacco: Never Assessed Sex Assigned at Date Recorded Not on file documented as of this encounter Plan of Treatment Not on filedocumented as of this encounter Visit Diagnoses Not on filedocumented in this encounter Care Teams Information Systems Consultant Relationship Specialty Start Date End Date Unassigned, Provider PCP - General 07/01/07 08/16/[address] [place] [address] documented as of this encounter
--- OUTSIDE RECORDS SUMMARY | 2022-03-07 11:28 | XMS_ITS | Encounter Summary ---
:1970 Author Organization [employer] Address [address] [place] [address] Care Team Providers Name Role Phone Chirag Metzger PA-C Primary Care Provider Reason for Visit Reason Comments URI Encounter Details Date Type Department Care Team Description 10/05/2011 Telephone Chirag Chopra PA-C URI [address] [place] [address] [place] [address] [phone] (Wo rk) Social History Tobacco Use Types Packs/Day Years Used Date Smoking Tobacco: Never Assessed Sex Assigned at Date Recorded Not on file documented as of this encounter Nursing Notes Malinda Underwood - 10/06/2011 10:40 AM CDT Patient returning call. States she continues with cough and shortness of breath. Has tried to rest and increase her fluids. Her cough is somewhat improved with these home care measures. Requesting another ABX. After review of EPIC encounters and telephone encounters. Advised patient to be seen in clinic for follow up. Patient unable to make a clinic appointment today, blurb writer suggested UC as an option for today. Patient states she will go to [facility] for follow up. MARTITA Petty Malinda Underwood - 10/06/2011 9:01 AM CDT Patient seen 09/26/11 for UTI and given ABX and to RTC prn. Patient called 10/03/11 and was advised the following, I advised she increase her clear liquids and try to rest as much as she can. If not improving in the next 1-2 days, come back in for assessment. She agreed with this plan. Graduate Intern placed call to home number of patient today. No answer. Voicemail left to return call to triage and to be re-evaluated in clinic if s/sx have not improved as previously advised. Malinda RN Taylor Booker - 10/05/2011 9:09 AM CDT Pt saw Chirag Metzger on 09/25 for URI symptoms and states they are not getting better. Pt is wondering ifshe can get another RX called into her pharmacy. documented in this encounter Plan of Treatment Not on filedocumented as of this encounter Visit Diagnoses Not on filedocumented in this encounter Care Teams Shelf Stocker Relationship Specialty Start Date End Date Chirag Metzegr PA-C PCP - General 08/17/11 04/04/12 [address] [place], [place] [address] documented as of this encounter
--- OUTSIDE RECORDS SUMMARY | 2022-03-07 11:28 | XMS_ITS | Encounter Summary ---
:1970 Author Organization [facility] Address [address] [place] [address] Care Team Providers Name Role Phone Oh Gray MD Primary Care Provider Reason for Visit Reason Comments ABDOMINAL CRAMPS Medication Request pain med for abdominal cramp ing Encounter Details Date Type Department Care Team Description 2001 Telephone Careline Emma Raines RN ABDOMINAL CRAMPS; [address] [facility] Medication Request [place], [place] [address] [address] (pain med for abdominal [phone] cramping) [place] [address] Social History Tobacco Use Types Packs/Day Years Used Date Smoking Tobacco: Never Assessed Sex Assigned at Date Recorded Not on file documented as of this encounter Nursing Notes 2001 11:59 PM CDT >> EMMA RAINES SunMar 13, 2001 10:50 AM >> CALL RECEIVED. Contact: Patient calls concerning self. States developed abdominal cramping since yesterday left lower abdominal and radiates to back. Menes is to begin today. 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 States she feels weak and nauseated. Denies corralation to nausea and motrin. States was discussed once doing a ultrasound. States there is no chance she could be as she has had a tubal ligation in past. Patient would like another medication than motrin to help with cramping and nausea. Discussed setting up appointment in future with [facility]. Declines appointment in clinic today. no stat symptoms per [facility] adult abdominal pain guidelines, copyright (c) 1999 HP PMH: tubal ligation MEDICATIONS: BC pill, ibuprofen ALLERGIES: none PLAN: Note faxed to clinc at 10:[address] Dr[address] Coughlin about possible prescriptionmed for abdominal cramping. HOME TREATMENT: Heat to abdomen, or warm soak in tub for 20-30 minutes (to decrease peristalsis) NPO x one hour (two hours if vomiting), then clear liquids until symptoms resolve or until patient i s evaluated Positioning-try lying on side with knees bent or with pillow under knees Tylenol for pain - Do NOT use anti-inflammatory medication (Ibuprofen) or aspirin Call back if no relief, or pain increases over next hour documented in this encounter Plan of Treatment Not on filedocumented as of this encounter Visit Diagnoses Not on filedocumented in this encounter Care Teams Clock And Watch Hands Dipper Relationship Specialty Start Date End Date Oh Gray MD PCP - General 04/05/00 06/30/07 [facility] [address] [place] [address] documented as of this encounter
--- OUTSIDE RECORDS SUMMARY | 2022-03-07 11:28 | XMS_ITS | Encounter Summary ---
:1970 Author Organization [facility] Address [address] [place] [address] Care Team Providers Name Role Phone Unassigned, Provider Primary Care Provider Unavailable Encounter Details Date Type Department Care Team Description 11/12/2002 PN Conversion Only [place] [address] [address] [address] [place] [address] Social History Tobacco Use Types Packs/Day Years Used Date Smoking Tobacco: Never Assessed Sex Assigned at Date Recorded Not on file documented as of this encounter Plan of Treatment Not on filedocumented as of this encounter Visit Diagnoses Not on filedocumented in this encounter Care Teams Engineering Team Supervisor Relationship Specialty Start Date End Date Unassigned, Provider PCP - General 07/01/07 08/16/[address] [place] [address] documented as of this encounter
--- OUTSIDE RECORDS SUMMARY | 2022-03-07 11:28 | XMS_ITS | Encounter Summary ---
:1970 Author Organization [facility] Address [address] [place] [address] Care Team Providers Name Role Phone Chirag Metzger PA-C Primary Care Provider Encounter Details Date Type Department Care Team Description 08/22/2011 [facility] [address] [place] [address] Social History Tobacco Use Types Packs/Day Years Used Date Smoking Tobacco: Never Assessed Sex Assigned at Date Recorded Not on file documented as of this encounter Plan of Treatment Not on filedocumented as of this encounter Visit Diagnoses Not on filedocumented in this encounter Care Teams Health Psychologist Relationship Specialty Start Date End Date Chirag Metzger PA-C PCP - General 08/17/11 04/04/[address] [place] [address] documented as of this encounter
--- OUTSIDE RECORDS SUMMARY | 2022-03-07 11:28 | XMS_ITS | Encounter Summary ---
:1970 Author Organization [facility] Address [address] [place] [address] Care Team Providers Name Role Phone Unassigned, Provider Primary Care Provider Unavailable Encounter Details Date Type Department Care Team Description 06/17/2003 PN Conversion Only SALVISA CONVERSNae Powell, [address] [place] [address] [address] [place], [place] [address] (Wo rk) Social History Tobacco Use Types Packs/Day Years Used Date Smoking Tobacco: Never Assessed Sex Assigned at Date Recorded Not on file documented as of this encounter Plan of Treatment Not on filedocumented as of this encounter Procedures Procedure Name Priority Date/Time Associated Comments Diagnosis GLUCOSE Routine 06/17/2003 9:20 AM Results f or this LINK KNITTING MACHINE OPERATOR procedure are i n the results section. THYROID STIMULATING Routine 06/17/2003 9:20 AM Re sults for this HORMONE LINK KNITTING MACHINE OPERATOR procedure are i n the results section. documented in this encounter Results Thyroid Stimulating Hormone (06/17/2003 9:20 AM LINK KNITTING MACHINE OPERATOR) P athologist Signature Thyroid 0.78 0.20 - HP CONVERSION Stimulating 5.50 Hormone uIU/mL Specimen (Source) Anatomical Collection Method Collection Time Re ceived Time Location / / Volume Laterality 06/17/2003 9:20 AM LINK KNITTING MACHINE OPERATOR Nae Hylton PA-C LAB_1 Performing Organization Address City/State/ZIP Code Phon e Number [facility] CONVERSION Glucose (06/17/2003 9:20 AM LINK KNITTING MACHINE OPERATOR) P athologist Signature Lab Glucose 84 60 - 109 [facility] CONVERSION mg/dL Specimen (Source) Anatomical Collection Method Collection Time Re ceived Time Location / / Volume Laterality 06/17/2003 9:20 AM LINK KNITTING MACHINE OPERATOR Nae Hylton PA-C LAB_1 Performing Organization Address City/State/ZIP Code Phon e Number HP CONVERSION documented in this encounter Visit Diagnoses Not on filedocumented in this encounter Care Teams Special Weapons Unit Officer Relationship Specialty Start Date End Date Unassigned, Provider PCP - General 07/01/07 08/16/[address] [place] [id number] documented as of this encounter
--- OUTSIDE RECORDS SUMMARY | 2022-03-07 11:28 | XMS_ITS | Encounter Summary ---
:1970 Author Organization [employer] Address [address] [place] [address] Care Team Providers Name Role Phone Oh Gray MD Primary Care Provider Encounter Details Date Type Department Care Team Description 01/03/2002 Orders Only [facility] Ruy Gray MD Practice [address] [place] [address] [phone] (Wo rk) Social History Tobacco Use Types Packs/Day Years Used Date Smoking Tobacco: Never Assessed Sex Assigned at Date Recorded Not on file documented as of this encounter Plan of Treatment Not on filedocumented as of this encounter Visit Diagnoses Not on filedocumented in this encounter Care Teams Cupola Tapper Helper Relationship Specialty Start Date End Date Oh Gray MD PCP - General 04/05/00 06/30/[address] [address] documented as of this encounter
--- OUTSIDE RECORDS SUMMARY | 2022-03-07 11:28 | XMS_ITS | Encounter Summary ---
:1970 Author Organization [facility] [employer] Address [address] [place] [address] Care Team Providers Name Role Phone Unassigned, Provider Primary Care Provider Unavailable Encounter Details Date Type Department Care Team Description 10/05/2003 PN Conversion Only [facility] Ronen Interiano, Medicine CAMPAIGN ADVISOR, SECURITY CONTROLS ASSESSOR [address] [address] [place] [address] [place] [address] [phone] (Wo rk) Social History Tobacco Use Types Packs/Day Years Used Date Smoking Tobacco: Never Assessed Sex Assigned at Date Recorded Not on file documented as of this encounter Progress Notes Phone Note, Clinician - 10/27/2003 12:01 AM CDT Phone Note filed by Clinician Phone Note at 09/06/101416 Author: Clinician Phone Note Service: (none) Author Type: Resource Filed: 09/06/101416 Note Time: 10/27/03 0001 Status: Signed Bridge Saw Operator: Clinician Phone Note (Resource) - TREATING PROVIDER: DOMINGO PHYLLIS * HOME PHONE:[phone] * SUBJECTIVE: * WORK PHONE:[phone] * ALLERGIES/SENSITIVITIES... NKDA 10/09/03 CURRENT MEDICATIONS... VERAPAMIL 120 MG QD; Imitrex 50 mg po migraines prn as ordered PERTINENT PAST HISTORY... 10/09/03 ASSESSMENT: CT head DISPOSITION: NO DISPOSITION GIVEN PLAN: [facility] per domingo interiano [facility] to [facility] of head with/without contrast. please call, normal._unable to reach pt at this # disconnected CALL BY THOR SCOTT LPN 10/27/2003 02:19PM [phone] ADDENDUM: Phone Note, Clinician - 10/13/2003 12:01 AM CDT Phone Note signed by Domingo Interiano APRN, SECURITY CONTROLS ASSESSOR at 10/23/03 5799 Author: Clinician Phone Note Service: (none) Author Type: Resource Filed: 10/05/03 0000 Note Time: 10/13/03 0001 Status: Signed Bridge Saw Operator: Clinician Phone Note (Resource) - TREATING PROVIDER: DOMINGO PHYLLIS * HOME PHONE:[phone] * SUBJECTIVE: * WORK PHONE:[phone] * ALLERGIES/SENSITIVITIES... NKDA 10/09/03 CURRENT MEDICATIONS... VERAPAMIL 120 MG QD; Imitrex 50 mg po migraines prn as ordered PERTINENT PAST HISTORY... 10/09/03 ASSESSMENT: ct results DISPOSITION: NO DISPOSITION GIVEN PLAN: MIS COMMENTS... pt stopped in clinic today asking for CT results, done this am. per mena interiano-CT is normal, continue verapamil, may take 2-4weeks to be effective,if not improved, f/u with provider-in [place].pt notified and understands. CALL BY THOR SCOTT LPN 10/13/2003 12:01PM [phone] ADDENDUM: Phone Note, Clinician - 10/12/2003 12:01 AM CDT Phone Note filed by Clinician Phone Note at 09/06/10 982 Author: Clinician Phone Note Service: (none) Author Type: Resource Filed: 09/06/10 1410 Note Time: 10/12/03 0001 Status: Signed Bridge Saw Operator: Clinician Phone Note (Resource) TO: DOMINGO INTERIANO FROM: ADAM LONG [phone] 10/12/03 * PROVIDER MESSAGE: ROUTINE * 10:05AM * *WITHIN 4 HOURS * MESSAGE: Pt calling because she would * HOME PHONE:[phone] * like you to order MRI that you and * WORK PHONE:[phone] * pt hav e been discussing. She has * CONTACT PHONE:[phone] * been off meds since 10/08/03 so would like i t done soon. Please Advise! SUBJECTIVE: ALLERGIES/SENSITIVITIES... NKDA 10/09/03 CURRENT MEDICATIONS... VERAPAMIL 120 MG QD; Imitrex 50 mg po migraines prn as ordered PERTINENT PAST HISTORY... 10/09/03 WEIGHT: ASSESSMENT: Pt calling PLAN: DISPOSITION: NO DISPOSITION GIVEN CALL BY ADAM LONG 10/12/2003 10:03AM [phone] ADDENDUM: <> 10/12/2003 11:05AM by THOR SCOTT LPN: per domingo interiano written orders 1) ok for CT as discussed. a Ct scan was scheduled 10/13/03 10:00AM pt notified,report to radiology 9:4 0 no prep needed prior to scan UCTION DESIGNER Phone Note, Clinician - 10/09/2003 12:01 AM CDT Phone Note filed by Clinician Phone Note at 09/06/107 Author: Clinician Phone Note Service: (none) Author Type: Resource Filed: 09/06/10 1409 Note Time: 10/09/03 0001 Status: Signed Bridge Saw Operator: Clinician Phone Note (Resource) TO: DOMINGO INTERIANO FROM: LEONOR KELLEY LPN [phone] * PROVIDER MESSAGE: ROUTINE * 10/09/03 08:15AM * *WITHIN 4 HOURS * MESSAGE: On 10/06/03 pt started * HOME PHONE:[phone] * verapamil 120 mg qd, qd since at * CONTACT PHONE:[phone] * 3-3:30 pm top o f head feels hot * work # after 9 am; before * and pressure feeling, yesterday she * 9 am cell [phone] * noted pressure be hind eyes and * PHARMACY: [phone] * face became hot...then she took * [facility] [address] * Imitrex 50 mg headache a nd pressure increased and she felt nauseated after she got home fell asleep. She usually has a dull headache q day that is why she came in for appt on 10/05/03. Please advise. SUBJECTIVE: ALLERGIES/SENSITIVITIES... NKDA 10/09/03 CURRENT MEDICATIONS... VERAPAMIL 120 MG QD; Imitrex 50 mg po migraines prn as ordered PERTINENT PAST HISTORY... 10/09/03 WEIGHT: PATIENT IS NOT . PATIENT IS NOT NURSING. ASSESSMENT: POSSIBLE SIDE EFFECTS FROM VERAPAMIL PLAN: DISPOSITION: NO DISPOSITION GIVEN CALL BY LEONOR KELLEY LPN 10/09/2003 08:04AM [phone] ADDENDUM: <> 10/09/2003 11:02AM by THOR SCOTT LPN: per daria interiano written orders 1) dc verapimil. 2) midrin as neede d for VIRK. 3) if not improved, return for further testing. called and left mess on [facility] d/t no answer at contact #.to call [phone]# for OR relayed info. <> 10/09/2003 11:35AM by THOR SCOTT LPN: comp generated rx for Midrin #20 refills x 3 ADDITIONAL TO ABOVE NOTE, please assist pt to call in rx to pharm of choice. <> 10/09/2003 04:01PM by DANIELLE BACA RN: Pt calling back and she does not understand why she needs the Midrin w hen she has the Imetrix as needed for headaches. The Verapimil was fo r daily use to prevent headaches and is looking for something to help prevent them from coming on. Please advise. Pharm # [phone] and she can be reached at wk until 5:30pm at [phone] or cell phone [phone] <> 10/09/2003 04:41PM by THOR SCOTT LPN: per domingo interiano written orders 1) pt called, will cont verapamil 1 20mg everyday. 2) imitrex or midrin only as needed. 3) offered CT of head or sinus, pt declined, moving to [place] in i week. Domingo Interiano APRN, CNP - 10/05/2003 12:01 AM CDT Progress Notes signed by Domingo Interiano APRN, CNP at 10/06/03 1513 Author: MILTON Johnson Service: (none) Author Type: Nurse Practitioner Filed: 09/08/10 2224 Note Time: 10/05/03 0001 Status: Signed Bridge Saw Operator: MILTON Johnson (Nurse Practitioner) NAME: KEARA ROB MR: [id number] ACCT: [id number] VISIT: [id number] DICTATING CLINICIAN: DOMINGO INTERIANO NP JOB: [id number] CLINIC PROGRESS NOTE DATE OF VISIT: 10/05/2003 ASSESSMENT: Headache, most likely daily stress headache with occasional migrainous symptoms. PLAN: 1. Imitrex 50 mg q. daily p.r.n. #18, 2 refills as needed only for migrainous symptoms which were discussed. 2. Verapamil 120 mg q. daily for daily tension-type headache. 3. Will have her follow up in 1 month for a recheck. If not improved or worsening, consider head scan, adjusting medications. We did discuss adequate amounts of exercise and sleep, avoiding or reducing stress, limiting caffeine. She agrees. SUBJECTIVE: Chief concern: Headache. PAST MEDICAL HISTORY: Unremarkable. MEDICATIONS: Depo q. 3 months. ADR/ALLERGIES: NONE. HABITS: Does not smoke. HPI: She has been having intermittent headaches for approximately 2-years' duration. She just recently had her eyes examined, got new glasses with no change. She describes them as daily headaches with a warm feeling on the top of her head. She denies any seasonal allergies or sinus symptoms. She has been taking ibuprofen 800 mg t.i.d. for the last 3 weeks with only minimal improvement. 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 Will get increasing headache symptoms 1 time per every 2 months which will cause light sensitivity and she will have to lie down and rest and then will completely resolve in a few hours. REVIEW OF SYSTEMS: Denies neck pain. Does have some stress, occasional photophobia. No phonophobia, no nausea or vomiting. No focal neural deficits. OBJECTIVE: VS: BP: 108/72. P: 76. Wt: 163 lb. Alert, oriented, pleasant, in no acute distress. Eyes: Clear. Pupils round, equal, and reactive. Red reflex is present. Optic disc visualized and normal. EOMs are intact. No nystagmus. Sinuses are nontender. Nares clear. Turbinates without erythema. Oropharynx without erythema. TMs are clear. NECK: Supple. No cervical lymphadenopathy. Range of motion in the head and neck is normal. There is no tenderness over the occipital condyles. No tenderness over the spinal processes. Shoulder shrug is strong and equal. Bilateral hand laborer drying department strong and equal. HEART: With regular rate and rhythm. No murmur. LUNGS: Clear. Respirations unlabored. CWS:[id number] C: 10/06/03 11:33 DOCUMENT: [id number] Phone Note, Clinician - 07/23/2003 12:01 AM CST Phone Note filed by Clinician Phone Note at 09/06/10 1329 Author: Clinician Phone Note Service: (none) Author Type: Resource Filed: 09/06/10 1329 Note Time: 07/23/03 0001 Status: Signed Bridge Saw Operator: Clinician Phone Note (Resource) SUBJECTIVE: ALLERGIES/SENSITIVITIES... * HOME PHONE:[phone] * CURRENT MEDICATIONS... PERTINENT PAST HISTORY... ASSESSMENT: depo DISPOSITION: NO DISPOSITION GIVEN PLAN: [facility]... Pt calling and had her Depo on 06-17-03 and she is wondering when her n ext shot is due. Per Depo protocol she is due September 02. Dates giv en to pt and she verbalizes understanding. CALL BY DANIELLE BACA RN 07/23/2003 08:41AM [phone] ADDENDUM: Nae Hylton PA-C - 06/17/2003 12:01 AM CST Progress Notes signed by Nae Hylton PA-C at 02/15/04 1034 Author: Nae Pickens PA-C Service: (none) Author Type: Physician Needle Straightener Filed: 09/08/10 1824 Note Time: 06/17/03 0001 Status: Signed Bridge Saw Operator: Nae Pickens PA-C (Physician Needle Straightener) NAME: KEARA ROB MR: [id number] ACCT: [id number] VISIT: [id number] DICTATING CLINICIAN: LIZZETH GONZALEZ JOB: [id number] CLINIC PROGRESS NOTE DATE OF VISIT: 06/17/2003 SUBJECTIVE: Keara is a 33-year-old female in today concerned with back pain present for about a month. She recently began working out again and states her back has gone into spasm. It is located in the low back. Denies any radiculopathy symptoms. Denies any weakness. She has had more constipation but that has been present for 2 months. No urinary changes. Symptoms diminish using ibuprofen and a heating pad. Believes her back is bad because she is overweight and she has started a new exercise program. As far as the constipation, she has always been able to control it by eating prunes on occasion and inguinal water intake but she is still having problems. She states it was an abrupt change from normal. Denies any blood in her stool. Denies any abdominal pain. PAST MEDICAL HISTORY: Noncontributory. CURRENT MEDICATIONS: Ibuprofen p.r.n. ADR/ALLERGIES: NONE. TOBACCO USE: None. FURTHER REVIEW OF SYSTEMS: Negative. She does need her Depo-Provera shot today. OBJECTIVE: VS: BP: 112/70. P: 68. Wt: 165 lb. GENERAL: This is a 33-year-old female in [facility]. 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 SKIN: Warm and dry. No rashes. No cyanosis. NECK: Supple without lymphadenopathy or thyromegaly. CARDIAC: Regular rate and rhythm with no murmurs, rubs, or gallops. LUNGS: CTAB. ABDOMEN: Soft. Bowel sounds positive. No HSM. No masses. No tenderness. BACK: Without abnormal curvature. Shoulders and pelvis are level. Vertebral bodies are symmetrical and nontender. There is some paravertebral muscle tenderness and spasm in the lower lumbar region. She has full cervical range of motion without limitation or pain. Full lumbar range of motion but does have limitations on forward flexion. States it hurts to recover from the bent position. Heel and toe walking are intact. Quadriceps are well-developed. No weakness. DTR's are symmetrical throughout. Sensation is intact to light touch in the L4-5 and S1 dermatomes. ASSESSMENT: 1. Low back strain. 2. Constipation. PLAN: 1. With the low back strain, will send her to physical therapy. I encouraged her to continue with the ibuprofen 800 t.i.d. with food. I gave her Flexeril 10 mg 1 p.o. t.i.d. p.r.n., #30, no refills. Side-effect profile reviewed. I gave her some back exercises to do at home, reviewed how to do them today. 2. As far as the constipation, will get a TSH and glucose. If normal, encouraged her to increase fiber intake and continue with the 8 to 10 glasses of water daily along with regular exercise. She did receive her Depo-Provera shot today. She will return to clinic if symptoms do not improve. FINAL IMPRESSION: 1) Low back strain. 2) Constipation. TT: CT: [id number] C: 06/17/03 10:03 DOCUMENT: [id number] Nae Hylton PA-C - 03/27/2003 12:01 AM CST Progress Notes signed by Nae Hylton PA-C at 01/27/04 9494 Author: Nae Pickens PA-C Service: (none) Author Type: Physician Needle Straightener Filed: 09/08/10 5811 Note Time: 03/27/03 0001 Status: Signed Bridge Saw Operator: Nae Pickens PA-C (Physician Needle Straightener) NAME: KEARA ROB MR: [id number] ACCT: [id number] VISIT: [id number] DICTATING CLINICIAN: LIZZETH GONZALEZ JOB: [id number] CLINIC PROGRESS NOTE DATE OF VISIT: 03/27/2003 SUBJECTIVE: Keara is a 33-year-old female in today to have a Depo injection. She recently had an insurance change and is new to our clinic today. Her last Depo shot was on 01/12/03, last Pap smear was on 01/12/03 and she reports it as normal. She does not have documentation of either of these with her today. She states she was told she did not need to bring this when she scheduled her appointment yesterday. She had been seen at [facility], was under the care of Dr. Decker, states she has been on Depo for the past year. Does get adequate calcium intake. Is starting to get into regular exercise again. PAST MEDICAL HISTORY: She has been healthy. FAMILY HISTORY: Glaucoma. SOCIAL HISTORY: She is a nonsmoker, recently began new job. Further PROS is negative. OBJECTIVE: VS: BP: 120/80. P: 80. Wt: 160 lb. This is a 33-year-old -[place] female NAD, she is to be HBM. The entire session today was spent in counseling. She was visibly upset that she had to wait as she is again at a new job and feels that being late because of this appointment would jeopardize her employment. ASSESSMENT: Depo-Provera injection. PLAN: Did speak with her employer, explained the situation, also got a fax from [facility] noting that she in fact, had her Depo on 01/12/03 and had a normal Pap done on 01/12/03. She received her Depo-Provera shot today. FINAL IMPRESSION: Depo-Provera injection. TT: CT: [id number] C: 03/28/03 15:32 DOCUMENT: [id number] documented in this encounter Plan of Treatment Not on filedocumented as of this encounter Procedures Procedure Name Priority Date/Time Associated Diagnosis Comme nts CT HEAD W/WO IV Routine 10/13/2003 10:33 AM Resul ts for this CONT CDT procedure are i n the results section. documented in this encounter Results CT Head W/WO IV Cont (10/13/2003 10:33 AM CDT) Anatomical Region Laterality Modality Head Other Specimen (Source) Anatomical Location Collection Method / Collectio n Time Received Time / Laterality Volume Impressions 10/13/2003 10:33 AM CDT : ??Normal CT scan of head. [id number] Dictating EDDIE MATIAS RADIOLOGIST Narrative 10/13/2003 10:[address] scan of the head was obtained using 100 cc of IV Optiray. FINDINGS: ??Ventricles are normal in siz e and midline. ??Brain shows no abnormal enhancement. ??No intracranial hemorrhage or mass. Procedure Note Eddie Boyce MD - 07/27/2016 CT scan of the head was obtained using 1 00 cc of IV Optiray. FINDINGS: Ventricles are normal in size and midline. Brain shows no abnormal enhancement. No intracranial he morrhage or mass. IMPRESSION : Normal CT scan of head. [id number] Dictating EDDIE MATIAS RADIOLOGIST Domingo Interiano CAMPAIGN ADVISOR, SECURITY CONTROLS ASSESSOR RAD CT documented in this encounter Visit Diagnoses Not on filedocumented in this encounter Care Teams Dry Mill Worker Relationship Specialty Start Date End Date Unassigned, Provider PCP - General 07/01/07 08/16/[address] [place] [id number] documented as of this encounter
--- OUTSIDE RECORDS SUMMARY | 2022-03-07 11:28 | XMS_ITS | Encounter Summary ---
:1970 Author Organization [facility] Address [address] [place] [address] Care Team Providers Name Role Phone Unassigned, Provider Primary Care Provider Unavailable Encounter Details Date Type Department Care Team Description 12/11/2002 PN Conversion Only [facility] [address] [address] [place] [address] Social History Tobacco Use Types Packs/Day Years Used Date Smoking Tobacco: Never Assessed Sex Assigned at Date Recorded Not on file documented as of this encounter Plan of Treatment Not on filedocumented as of this encounter Visit Diagnoses Not on filedocumented in this encounter Care Teams Chief Guard Relationship Specialty Start Date End Date Unassigned, Provider PCP - General 07/01/07 08/16/[address] [place] [id number] documented as of this encounter
--- OUTSIDE RECORDS SUMMARY | 2022-03-07 11:28 | XMS_ITS | Encounter Summary ---
:1970 Author Organization [employer] Address [address] [place] [address] Care Team Providers Name Role Phone Chirag Metzger PA-C Primary Care Provider Reason for Visit Reason Comments URI Encounter Details Date Type Department Care Team Description 10/09/2011 Office Visit [facility] Chirag Metzger, Cough (Primary Dx) [address] CHASITY Gleason PA-C [address] [address] [phone] CHASITY SIMON [id number] Social History Tobacco Use Types Packs/Day Years Used Date Smoking Tobacco: Never Assessed Sex Assigned at Date Recorded Not on file documented as of this encounter Last Filed Vital Signs Vital Sign Reading Time Taken Comments Blood Pressure 116/80 10/09/2011 1:06 PM CDT Pulse - - Temperature 36.9 ??C (98.4 ??F) 10/09/2011 1:06 PM CDT Respiratory Rate - - Oxygen Saturation - - Inhaled Oxygen Concentration - - Weight 84.4 kg (186 lb) 10/09/2011 1:06 PM CDT Height - - Body Mass Index - - documented in this encounter Progress Notes Chirag Metzger PA-C - 10/09/2011 1:24 PM CDT SUBJECTIVE: This 41 y.o. female presents today with the following concern(s): She was treated a weekago with Zpak, oral prednisone, and cough syrup for tracheobronchitis. Everything seemed to improve,and she is overall feeling a lot better; however, she has a persistent dry cough that is causing herback, chest, and stomach muscles to hurt. Cough is spasmodic, and triggered by talking, laughing, and breathing outward. No history of asthma. Has been using Delsym, which helps a little, has gone through almost 2 bottles in the last 10 days. Tried Robitussin AC, and it was not helpful at all, so she discontinued it. Adverse Drug Reactions: has no known allergies. Medications: has a current medication list which includes guaifenesin-codeine, ibuprofen, prednisone, rizatriptan, and topiramate. Tobacco History: reports that she has never smoked. She has never used smokeless tobacco. Alcohol History: reports that she drinks about 1.8 ounces of alcohol per week. OBJECTIVE: Vital Signs: BP 116/80 Temp(Src) 98.4 ??F (36.9 ??C) (Oral) Wt 186 lb (84.369 kg) General appearance: alert, cooperative, no distress, appears stated age, breathing comfortably, but often coughs during exhalation, coughing disrupts speaking., Throat: lips, mucosa, and tongue normal;teeth and gums normal, Neck: supple, symmetrical, trachea midline and no adenopathy, Lungs: clear to auscultation bilaterally, Heart: regular rate and rhythm, S1, S2 normal, no murmur, click, rub or gallop, Pulses: 2+ and symmetric and Skin: Skin color, texture, turgor normal. No rashes or lesions ASSESSMENT/PLAN: Keara was seen today for uri (cold). Diagnoses and associated orders for this visit: Cough, post-infectious - predniSONE (DELTASONE) 20 mg tablet; Take 1 tablet by mouth 2 times daily. Take with food. - fluticasone-salmeterol (ADVAIR) 250-50 mcg/dose diskus inhaler; Inhale 1 puff every 12 hours for 14 days. Rinse mouth/Gargle after use - albuterol (PROVENTIL, VENTOLIN) 90 mcg/actuation inhaler; Inhale 2 puffs every 4 hours as needed (cough). Please dispense with spacer and give inhaler training Discussed post-infectious reactive airway disease. Discussed the purpose of each medication, how to use each, potential benefits, and potential adverse effects. Return to clinic as needed. The patient was discharged ambulatory and in stable condition. *SH~DNS~SOAP documented in this encounter Plan of Treatment Not on filedocumented as of this encounter Visit Diagnoses Diagnosis Cough - Primary documented in this encounter Care Teams Fire Management Technician Relationship Specialty Start Date End Date Chirag Metzger PA-C PCP - General 08/17/11 04/04/12 [address] [place], [place] [address] documented as of this encounter
--- OUTSIDE RECORDS SUMMARY | 2022-03-07 11:28 | XMS_ITS | Encounter Summary ---
:1970 Author Organization [employer] Address [address] [place] [address] Care Team Providers Name Role Phone Chirag Metzger PA-C Primary Care Provider Reason for Visit Reason Comments Pharyngitis Encounter Details Date Type Department Care Team Description 09/20/2011 Office Visit [facility] Silvana Juarez is (Primary Dx); Medicine Acute pharyngitis [address] [place] [address] Social History Tobacco Use Types Packs/Day Years Used Date Smoking Tobacco: Never Assessed Sex Assigned at Date Recorded Not on file documented as of this encounter Last Filed Vital Signs Vital Sign Reading Time Taken Comments Blood Pressure 116/69 09/20/2011 1:38 PM CDT Pulse 74 09/20/2011 1:38 PM CDT Temperature 36.9 ??C (98.4 ??F) 09/20/2011 1:38 PM CDT Respiratory Rate 16 09/20/2011 1:38 PM CDT Oxygen Saturation 97% 09/20/2011 1:38 PM CDT Inhaled Oxygen Concentration - - Weight - - Height - - Body Mass Index - - documented in this encounter Progress Notes Silvana Juarez - 09/20/2011 1:59 PM CDT Subjective: Chief complaint: Chief Complaint Patient presents with ??? Pharyngitis (SORE THROAT) onset this am, bodyaches Keara Cuellar is an 41 y.o. female who presents to the clinic for evaluation of sore throat and bodyaches since this morning. Patient reports her throat feels swollen she has mild pain in her left ear and difficulty swallowing. She reports her nephew was sick with a cold otherwise she denies sick contacts. She has not been exposed to strep or mono. She denies fever, cough, dizziness, headache, wheezing, nausea vomiting diarrhea. She is generally healthy, no chronic health problems, no recent travel. Other than above, complete review of systems are negative. Past Medical History Diagnosis Date ??? Fibroid uterus s/p hysterectomy 2005 ??? Syncope, psychogenic stress reaction ??? Headache, migraine 08/17/2011 Medications reviewed in EMR Adverse drug reactions: Review of patient's allergies indicates no known allergies. Immunizations: Immunization History Administered Date(s) Administered ??? Tdap (Adacel) 08/17/2011 Vital signs: BP 116/69 Pulse 74 Temp(Src) 98.5 ??F (36.9 ??C) (Oral) Resp 16 SpO2 97% Objective: Vital signs reviewed General- Patient in no acute distress, appears healthy. Head- normocephalic, atraumatic, sinus nontender Eyes- PERRL, lids and sclera normal Ears- TM intact, opaque, non bulging, canal normal. Nose- patent, no rhinorrhea Oropharynx- no thrush or exudate noted. Tonsils nonenlarged, no exudate, uvula midline, erythematous, swelling. Neck- supple, no adenopathy, no thyromegaly Lungs- clear to ausculation bilaterally. Cardiovascular- regular rate and rhythm. Normal S1 and S2. No S3, S4 or murmurs. Skin- warm and dry. no rashes noted. Neurological- alert and oriented. Lab/imaging: RSSW: negative Assessment/ Plan: Uvuluitis- Discussed diagnosis with the patient, likely viral in nature requiring symptomatic care at this time. Rx Decadron 10mg IM solution given PO in office . Side effect profile reviewed. Discussed about contagiousness and disease course. Use ibuprofen and/or Tylenol for fever or pain. Encouraged fluids, rest, salt water gargles. RTC p.r.n. if not gradually improving, sooner p.r.n.. The patient was discharged in stable condition. All questions answered. Patient in agreement with the plan. documented in this encounter Plan of Treatment Not on filedocumented as of this encounter Procedures Procedure Name Priority Date/Time Associated Diagnosis Comme nts BETA STREP FOLLOWUP Routine 09/20/2011 3:02 PM Re sults for this CDT procedure are i n the results section. RAPID STREP SCREEN Routine 09/20/2011 1:44 PM Acute pharyngiti s Results for this WAIVED CDT procedure are i n the results section. documented in this encounter Results Beta Strep Followup (09/20/2011 3:02 PM CDT) [facility] [email or web address] Method Time Signature Strep Screen No beta HP CONVERSION hemolytic Strep Group A isolated. Comment: ? ORDERED BY: SILVANA JUAREZ SOURCE: Throat ? COLLECTED: ??09/20/11 15:02 ? PLATED: ? 09/20/11 15:02 Culture Strep, Follow up from Rapid Test ?? FINAL ? 09/21/11 07:19 No beta hemolytic Strep Group A isolate d. Specimen (Source) Anatomical Collection Method Collection Time Re ceived Time Location / / Volume Laterality Throat: 09/20/2011 3:02 PM CDT Silvana Roche PA-C LAB_1 Performing Organization Address City/State/ZIP Code Phon e Number HP CONVERSION Rapid Strep Screen Waived (09/20/2011 1:44 PM CDT) Component Value Ref Test Analysis Performed At [facility] [email or web address] Range Method Time Signature Rapid Strep Test performed HP CONVERSIO N Screen Waived by:voegem Rapid Strep Negative for HP CONVERSION Screen Waived Streptococcus group A Comment: ? ORDERED BY: SILVANA JUAREZ SOURCE: Throat ? COLLECTED: ??09/20/11 13:44 ? PLATED: ? 09/20/11 15:02 Rapid Strep Screen Waived ?FINAL ? 09/20/11 15:03 ??Test performed by:grant ? Negative for Streptococcus group A Specimen (Source) Anatomical Collection Method Collection Time Re ceived Time Location / / Volume Laterality Throat: 09/20/2011 1:44 PM CDT Narrative HP CONVERSION - 09/20/2011 3:03 PM CDT Performed at [facility] [address] [place] [address] Silvana Roche PA-C LAB_1 Performing Organization Address City/State/ZIP Code Phon e Number HP CONVERSION documented in this encounter Visit Diagnoses Diagnosis Uvulitis - Primary Cellulitis and abscess of oral soft tiss ues Acute pharyngitis documented in this encounter Care Teams Aeronautical Research Engineer Relationship Specialty Start Date End Date Chirag Metzger PA-C PCP - General 08/17/11 04/04/12 [address] [place], [place] [id number] documented as of this encounter
--- OUTSIDE RECORDS SUMMARY | 2022-03-07 11:28 | XMS_ITS | Encounter Summary ---
:1970 Author Organization [employer] Address [address] [place] [address] Care Team Providers Name Role Phone Chirag Metzger PA-C Primary Care Provider Reason for Visit Reason Comments Annual Exam Encounter Details Date Type Department Care Team Description 08/17/2011 Office Visit [facility] Chirag Metzger, Annual physical exam (Primar y Dx); [address] PA-C Headache, migraine; [place] [address] [address] Syncope, psychogenic; [phone] [place] [address] Need for ahkwzfvvlp-bmdzorx-hjumselmi (T dap) vaccine; [phone] Breast cancer s creening; (Work) Cervical cancer screening Social History Tobacco Use Types Packs/Day Years Used Date Smoking Tobacco: Never Assessed Sex Assigned at Date Recorded Not on file documented as of this encounter Last Filed Vital Signs Vital Sign Reading Time Taken Comments Blood Pressure 122/76 08/17/2011 2:26 PM CDT Pulse 76 08/17/2011 2:26 PM CDT Temperature - - Respiratory Rate - - Oxygen Saturation - - Inhaled Oxygen Concentration - - Weight 83.9 kg (185 lb) 08/17/2011 2:26 PM CDT Height - - Body Mass Index - - documented in this encounter Patient Instructions Patient InstructionsChirag Metzger PA-C - 08/17/2011 2:56 PM CDT Thank you for enrolling in [employer]price. Please follow the instructions below to securely access your online medical record. amprice allows you to send messages to your doctor, view your test results, renewyour prescriptions, schedule appointments, and more. How Do I Sign Up? 1. In your Internet browser, go to: [email or web address] 2. Click on the Sign Up Now link in the Sign In box. You will see the New Member Sign Up page. 3. Enter your amprice Access Code exactly as it appears below. You will not need to use this code after you???ve completed the sign-up process. If you do not sign up before the expiration date, you must request a new code. amprice Access Code: [email or web address] Expires: 09/16/11 02:56 PM 4. Enter your Social Security Number ([id number]) and Date of (mm/dd/yyyy) as indicated and click Submit. You will be taken to the next sign- up page. 5. Create a amprice ID. This will be your amprice login ID and cannot be changed, so think of one that is secure and easy to remember. 6. Create a amprice password. You can change your password at any time. 7. Enter your Password Reset Question and Answer. This can be used at a later time if you forget your password. 8. Enter your e-mail address. You will receive e-mail notification when new information is availablein amprice. 9. Click Sign Up. You can now view your medical record. Additional Information If you have questions, you can call [phone] to talk to our amprice staff. Remember, amprice is NOT to be used for urgent needs. For medical emergencies, dial 911. documented in this encounter Progress Notes Chirag Metzger PA-C - 08/17/2011 3:51 PM CDT Preventive Exam IMPRESSION: Routine preventive exam. Patient Active Problem List Diagnoses Code ??? Fibroid uterus 218.9AC ??? Syncope, psychogenic 300.89M ??? Headache, migraine 346.90C SUBJECTIVE: 41 y/o patient presents for a routine preventive physical exam. Current contraception: abstinence Medication refills requested: Prescription Refills Approved Prescriptions Disp Refills ??? topiramate (TOPAMAX) 25 mg tablet 180 tablet 4 Sig: Take 1 tablet by mouth 2 times daily. ??? rizatriptan (MAXALT) 10 mg tablet 10 tablet 12 Sig: Take 1 tablet by mouth as needed for Migraine. May repeat in 2 hours if needed . Headache, migraine - Chirag Laith Metzger PA-C 08/17/11 03:45 PM Signed Has had migraine headaches for several years, and just before moving back to [place] she was having increased frequency of migraines. She was fully evaluated, including CT imaging of the brain, and then wasstarted on a low dose of topiramate, as well as a rescue triptan that wasn't Imitrex. She had significant reduction in frequency of migraine headaches with the topiramate, at 25 mg twice daily, withoutadverse effects. The rescue medication worked, as well. She was laid off at that point, lost her medical insurance, went off her medications, and has since moved to [place]. Her headache frequency has been gradually increasing, and she requests to go back on topiramate. Syncope, psychogenic - Chirag Metzger PA-C 08/17/11 03:47 PM Signed Several years ago, she had pre-syncopal episodes that were concerning initially for stroke. She was admitted to the hospital and had lengthy and thorough neurologic exam. All was normal, and it was eventually determined that this was a stress reaction. She was medicated for stress and anxiety, and theepisodes resolved completely. She has since weaned herself off the medications, and has not had recurrence. She has been certified to work only part-time due to this condition, and has paperwork from her previous clinic regarding this. She is currently unemployed, but looking for part-time work. Past Medical/Surgical History/Family History: Reviewed and updated today under History tab in Electronic Medical Record. has a current medication list which includes ibuprofen, rizatriptan, and topiramate. has no known allergies. 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 Patient has had a hysterectomy. Sexual History: reports that she does not engage in sexual activity. Last Pap Smear: last year at her previous clinic, normal. She has not had abnormal pap smear. STD History: She has not been diagnosed with STDs. Social History: reports that she has never smoked. She has never used smokeless tobacco. reports that she drinks about 1.8 ounces of alcohol per week. reports that she does not use illicit drugs. 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 Preventive Health Assessment: She does not exercise regularly. She does perform monthly self breast exam. Calcium intake is adequate. Screening pap smear: due Screening mammogram: due Screening colonoscopy: N/A Screening cholesterol fractionation: up-to-date Screening bone density scan: N/A Screening glucose: up-to-date She is agreeable to Tdap today. Review of Systems: With the exception of any items noted above, the remainder of complete ROS is negative. OBJECTIVE: BP 122/76 Pulse 76 Wt 185 lb (83.915 kg) General appearance: alert, cooperative, no distress, [...] CVA tenderness., Lungs: clear to auscultation bilaterally, Breasts: normal [...] orders for this visit: Annual physical exam Headache, migraine - topiramate (TOPAMAX) 25 mg tablet; Take 1 tablet by mouth 2 times daily. - rizatriptan (MAXALT) 10 mg tablet; Take 1 tablet by mouth as needed for Migraine. May repeat in 2 hours if needed Syncope, psychogenic Need for tmmzlleduo-taqniec-hmzntyjas (tdap) vaccine - Tdap (Adacel) Breast cancer screening - Mammogram; Future - Mammogram Cervical cancer screening - Pap Smear Screening Patient Active Problem List Diagnoses Code ??? Fibroid uterus 218.9AC ??? Syncope, psychogenic 300.89M ??? Headache, migraine 346.90C Discussed with patient: How to take the topiramte, purpose of the medication, potential benefits, and potential adverse effects. Discussed how to take the Maxalt, maximum tablets/24 hours, potential benefits, and potential adverse effects. Recommend medication check in 8 weeks. Discharged ambulatory and in stable condition. documented in this encounter Miscellaneous Notes Assessment & Plan Note - Chirag Metzger PA-C - 08/17/2011 3:47 PM CDT Several years ago, she had pre-syncopal episodes that were concerning initially for stroke. She was admitted to the hospital and had lengthy and thorough neurologic exam. All was normal, and it was eventually determined that this was a stress reaction. She was medicated for stress and anxiety, and theepisodes resolved completely. She has since weaned herself off the medications, and has not had recurrence. She has been certified to work only part-time due to this condition, and has paperwork from her previous clinic regarding this. She is currently unemployed, but looking for part-time work. Assessment & Plan Note - Chirag Metzger PA-C - 08/17/2011 3:45 PM CDT Has had migraine headaches for several years, and just before moving back to [place] she was having increased frequency of migraines. She was fully evaluated, including CT imaging of the brain, and then wasstarted on a low dose of topiramate, as well as a rescue triptan that wasn't Imitrex. She had significant reduction in frequency of migraine headaches with the topiramate, at 25 mg twice daily, withoutadverse effects. The rescue medication worked, as well. She was laid off at that point, lost her medical insurance, went off her medications, and has since moved to [place]. Her headache frequency has been gradually increasing, and she requests to go back on topiramate. documented in this encounter Plan of Treatment Not on filedocumented as of this encounter Procedures Procedure Name Priority Date/Time Associated Comments Diagnosis MM MAMMOGRAM Routine 08/22/2011 9:15 AM Breast cancer Results for this SCREENING BILAT W CDT screening procedure are in CAD the results section. ANATOMICAL PATH Routine 08/17/2011 3:06 PM Result s for this LIQUID BASED CDT procedure are i n the results section. PAP SMEAR SCREENING Routine 08/17/2011 3:06 PM Cervical cancer Results for this CDT screening procedure are i n the results section. documented in this encounter Results MM Mammogram Screening Bilat W CAD (08/22/2011 9:15 AM CDT) Anatomical Region Laterality Modality Breast Bilateral Mammography Specimen (Source) Anatomical Location Collection Method / Collectio n Time Received Time / Laterality Volume Impressions 08/22/2011 10:42 AM CDT IMPRESSION: BILATERAL BREASTS: Benign, no evidence o f malignancy. Normal interval follow-up is recommended in 12 months. OVERALL ASSESSMENT - CATEGORY 2 - BENIGN END OF IMPRESSION BJ Narrative 08/22/2011 10:42 AM CDT Comparison is made to outside films from 05/16/2006 (bilateral - [facility], [place]) and o utside films from 12/07/2004 ([place], [place]). Bilateral Breast Findings: There are scattered fibroglandular densi ties (11% - 50% fibroglandular). No significant masses, calcifications or other abnormalities are seen. Procedure Note Fito Kim MD - 01/12/2016Forma tting of this note might be different from the original. Comparison is made to outside films from 05/16/2006 (bilateral - [facility], [place]) and o utside films from 12/07/2004 (bilateral - [facility], [place]). Bilateral Breast Findings: There are scattered fibroglandular densi ties (11% - 50% fibroglandular). No significant masses, calcifications or other abnormalities are seen. IMPRESSION IMPRESSION: BILATERAL BREASTS: Benign, no evidence o f malignancy. Normal interval follow-up is recommended in 12 months. OVERALL ASSESSMENT - CATEGORY 2 - BENIGN END OF IMPRESSION BJ Chirag Metzger PA-C RAD K[facility] Pap Smear (08/17/2011 3:06 PM CDT) Specimen (Source) Anatomical Collection Method Collection Time Re ceived Time Location / / Volume Laterality 08/17/2011 3:06 PM CDT Narrative HP CONVERSION - 08/23/2011 2:55 PM CDT Final GYNECOLOGICAL CYTOLOGY REPORT Pathology #: [id number] ?Date Obtained: 08/17/2011 ? Date Received: 08/21/2011 INTERPRETATION/RESULTS: Negative for Intraepithelial Lesion or M alignancy SPECIMEN ADEQUACY: Satisfactory for Evaluation. ??Endocervi zenaida cells/transformation zone component present. Verified on 08/23/2011 ??by ARGENTINA HALL AR, CT(ASCP) (electronic signature) CLINICAL NOTES: ? LMP: Not Stated. LIQUID BASED PAP SMEAR SPECIMEN TYPE: ?CERVICAL WITH REFLEX TO HPV IF ASCUS PLEASE NOTE: The pap smear is a screening test design ed to aid in the detection of cervical cancer and its pre cursor lesions. It is not a diagnostic procedure and letitia uld not be used as the sole means of detecting cervical cancer. Both false-positive and false-negative report s may occur. ? End of Report Chirag Metzger PA-C LAB_1 Performing Organization Address City/State/ZIP Code Phon e Number HP CONVERSION Pap Smear Screening (08/17/2011 3:06 PM CDT) P athologist Signature PAP Routine Collected HP CONVERSION Specimen Anatomical Collection Method Collection Time Receive d Time (Source) Location / / Volume Laterality 08/17/2011 3:06 PM 2 4:58 CDT AM CDT Chirag Metzger PA-C LAB_1 Performing Organization Address City/State/ZIP Code Phon e Number HP CONVERSION documented in this encounter Visit Diagnoses Diagnosis Annual physical exam - Primary Routine general medical examination at a health care facility Headache, migraine Migraine, unspecified, without mention o f intractable migraine without mention of status migrainosus Syncope, psychogenic ([facility]) Other somatoform disorders Need for ztcmqsvmpg-utnflsx-cgioaersw (T dap) vaccine Need for prophylactic vaccination with c ombined aartdkjxwk-wpgholp-joouivoqr (DTP) vaccine Cervical cancer screening Screening for malignant neoplasm of the cervix documented in this encounter Care Teams Turning And Beading Machine Operator Relationship Specialty Start Date End Date Chirag Metzger PA-C PCP - General 08/17/11 04/04/12 [address] [place] [address] documented as of this encounter
--- OUTSIDE RECORDS SUMMARY | 2022-03-07 11:29 | XMS_ITS | Encounter Summary ---
:1970 Author Organization [employer] Address [address] [place] [address] Care Team Providers Name Role Phone Oh Gray MD Primary Care Provider Encounter Details Date Type Department Care Team Description 07/30/[address] [facility] Ruy Gray MD Practice [address] [place] [address] [phone] (Wo rk) Social History Tobacco Use Types Packs/Day Years Used Date Smoking Tobacco: Never Assessed Sex Assigned at Date Recorded Not on file documented as of this encounter Plan of Treatment Not on filedocumented as of this encounter Visit Diagnoses Not on filedocumented in this encounter Care Teams Cork Tile Floor Layer Relationship Specialty Start Date End Date Oh Gray MD PCP - General 04/05/00 06/30/[address] [address] documented as of this encounter
--- OUTSIDE RECORDS SUMMARY | 2022-03-07 11:29 | XMS_ITS | Encounter Summary ---
:1970 Author Organization [employer] Address [address] [place] [address] Care Team Providers Name Role Phone Oh Gray MD Primary Care Provider Encounter Details Date Type Department Care Team Description 02/13/2001 Office Visit [facility] Deena Fry N ONSPECIF SKIN ERUPT Practice SAFETY SCIENTIST, GEOTHERMAL OPERATING ENGINEER [facility] [address] [facility] [address] [place] [phone] (Wo rk) Social History Tobacco Use Types Packs/Day Years Used Date Smoking Tobacco: Never Assessed Sex Assigned at Date Recorded Not on file documented as of this encounter Progress Notes Deena Fry - 02/13/2001 12:00 AM CDTS: A 30-year-old female presents to clinic concerned about a rash under her left breast and on the right upper leg. This has been present for several months she believes. She is trying tste-cut-xtbpfgx hydrocortisone cream sporadically. She also tried a cream she was given in the past. Review of the chart reveals that this was for a fungal infection. She does have a history of eczematous type skin in the past. She denies any new Bath and Body products, foods or beverages or laundry products, and no other concerns. MEDICATIONS: Ibuprofen, Xenadrine. ALLERGIES: NKDA. O: Temp 97.8, pulse 98.2, blood pressure 92/60. Alert, oriented, cooperative, well-groomed, in no apparent distress. Under the left breast and in the right upper leg area there are very dry patches of skin, both are approximately 2 cm by 4 cm. There are some papules noted. This does not appear to be fungal. A: Probable eczematous patches. P: Triamcinolone 0.1% cream to be applied b.i.d. to the affected areas for 2 to 3 weeks. Follow up if no improvement in symptoms. She understands and agrees with this plan. IN SUMMARY: Probable eczematous patches. documented in this encounter Plan of Treatment Not on filedocumented as of this encounter Visit Diagnoses Diagnosis Rash and other nonspecific skin eruption documented in this encounter Care Teams Parent Trainer Relationship Specialty Start Date End Date Oh Gray MD PCP - General 04/05/00 06/30/[address] [address] documented as of this encounter
--- OUTSIDE RECORDS SUMMARY | 2022-03-07 11:29 | XMS_ITS | Encounter Summary ---
:1970 Author Organization [employer] Address [address] [place] [address] Care Team Providers Name Role Phone Oh Gray MD Primary Care Provider Encounter Details Date Type Department Care Team Description 05/03/2000 Education Unmatched, Results Social History Tobacco Use Types Packs/Day Years Used Date Smoking Tobacco: Never Assessed Sex Assigned at Date Recorded Not on file documented as of this encounter Progress Notes Unmatched, Results - 05/03/2000 12:00 AM CSTPROVIDER - Michelle Mi [facility]; ; Member referred by for weight management phone counseling; attempted to reach member 3 times; will send an unable to reach letter as final attempt to reach member and have them call in to schedule their appt; cc: Martine MONTEIRO [facility]; ; NING CENTER INSTRUCTOR documented in this encounter Plan of Treatment Not on filedocumented as of this encounter Visit Diagnoses Not on filedocumented in this encounter Care Teams Gear Changer Relationship Specialty Start Date End Date Oh Gray MD PCP - General 04/05/00 06/30/[address] [address] documented as of this encounter
--- OUTSIDE RECORDS SUMMARY | 2022-03-07 11:29 | XMS_ITS | Encounter Summary ---
:1970 Author Organization [employer] Address [address] [place] [address] Care Team Providers Name Role Phone Oh Gray MD Primary Care Provider Encounter Details Date Type Department Care Team Description 10/25/2000 Office Visit Urgent Care [facility] P HARYNGITIS(SORE THROAT); [place] LABORATORY EXAMINATION [address] [place], [place] [address] Social History Tobacco Use Types Packs/Day Years Used Date Smoking Tobacco: Never Assessed Sex Assigned at Date Recorded Not on file documented as of this encounter Progress Notes Harry Duong - 10/25/2000 12:00 AM CDTSUBJECTIVE: Patient is in with a complaint of sore throat. She states beginning a couple days ago she had a few loose stools. Last night she started developing a little bit of a sore throat, but it mainly bothered her when she got up today. As today has progressed she's felt warm, achy, having myalgias. She had a daughter who had positive strep test last week. Patient has had strep from her children in the past. Patient has taken some ibuprofen today for a headache that she had also. She denies any nausea or vomiting, no abdominal pain, no urinary symptoms. She is on no prescription medications. OBJECTIVE: Temperature is 98.0 degrees Farenheit. Heart rate is 72. Blood pressure is 100/60. Ear canals are clear. throat is mildly erythematous with no exudate. Neck with no adenopathy. There is no sinus tenderness, nose is clear. chest is clear to auscultation. Abdomen revealed a little bit of suprapubic discomfort. Patient states this is related to her menstrual period, that is also present at this time. She has no other abdominal tenderness, no rebound or guarding. Rapid strep test is performed and it is negative. ASSESSMENT: Pharyngitis with some loose stools, probably viral syndrome. PLAN: Complete throat culture. Discussed symptomatic care with fluids, analgesics PRN. Follow up if not seeing improvement or worsening. IN SUMMARY: PHARYNGITIS, VIRAL SYNDROME. cc: documented in this encounter Plan of Treatment Not on filedocumented as of this encounter Visit Diagnoses Diagnosis Acute pharyngitis Laboratory examination documented in this encounter Care Teams Education Faculty Member Relationship Specialty Start Date End Date Oh Gray MD PCP - General 04/05/00 06/30/07 [facility] [id number] [place] [id number] documented as of this encounter
--- OUTSIDE RECORDS SUMMARY | 2022-03-07 11:29 | XMS_ITS | Encounter Summary ---
:1970 Author Organization [facility] Address [address] [place] [address] Care Team Providers Name Role Phone Padmini Park PA-C Primary Care Provider Encounter Details Date Type Department Care Team Description 10/25/2000 Orders Only [facility] Epic, Internal [address] [place], [place] [phone] [facility] [phone] [place] [address] Social History Tobacco Use Types Packs/Day Years Used Date Smoking Tobacco: Never Assessed Sex Assigned at Date Recorded Not on file documented as of this encounter Plan of Treatment Not on filedocumented as of this encounter Procedures Procedure Name Priority Date/Time Associated Diagnosis Comme nts STREP GRP A, RAPID Waiting 10/25/2000 6:48 PM Res ults for this SCREEN CDT procedure are i n the results section. documented in this encounter Results RAPID, GPA STREP SCREEN (WAITI (10/25/2000 6:48 PM CDT) [facility] Method Time Signature Patient Home [phone] [facility] Phone # Patient Work None [facility] Phone # Grp A Rapid Negative [facility] Screen Grp A Culture Negative [facility] Final Specimen Anatomical Collection Method Collection Time Receive d Time (Source) Location / / Volume Laterality 10/25/2000 6:48 PM 1 6:49 CDT PM CDT [facility]ative [facility] - 10/25/2000 6:48 PM CDT Ordered by URGENT CARE Internal Processing Epic LAB_1 Performing Organization Address City/State/ZIP Code Phon e Number [facility] [phone] [facility] [address] [place] [phone] documented in this encounter Visit Diagnoses Not on filedocumented in this encounter Care Teams Road Service Locksmith Relationship Specialty Start Date End Date Padmini Park PA-C PCP - General Family Practice 04/05/12 01/19/16 documented as of this encounter
--- OUTSIDE RECORDS SUMMARY | 2022-03-07 11:29 | XMS_ITS | Encounter Summary ---
:1970 Author Organization [facility] Address [address] [place] [address] Care Team Providers Name Role Phone Oh Gray MD Primary Care Provider Encounter Details Date Type Department Care Team Description 09/06/2000 Orders Only Epic, [place] [address] Social History Tobacco Use Types Packs/Day Years Used Date Smoking Tobacco: Never Assessed Sex Assigned at Date Recorded Not on file documented as of this encounter Plan of Treatment Not on filedocumented as of this encounter Visit Diagnoses Not on filedocumented in this encounter Care Teams Oilseed Meat Presser Relationship Specialty Start Date End Date Oh Gray MD PCP - General 04/05/00 06/30/07 [facility] [address] [place] [id number] documented as of this encounter
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
--- OUTSIDE RECORDS SUMMARY | 2022-03-07 11:29 | XMS_ITS | Encounter Summary ---
:1970 Author Organization [facility] Address [address] [place] [address] Care Team Providers Name Role Phone Oh Gray MD Primary Care Provider Encounter Details Date Type Department Care Team Description 02/13/2001 Orders Only Epic, [place] [address] Social History Tobacco Use Types Packs/Day Years Used Date Smoking Tobacco: Never Assessed Sex Assigned at Date Recorded Not on file documented as of this encounter Plan of Treatment Not on filedocumented as of this encounter Visit Diagnoses Not on filedocumented in this encounter Care Teams Erco Machine Operator Relationship Specialty Start Date End Date Oh Gray MD PCP - General 04/05/00 06/30/07 [facility] [address] [place] [phone] documented as of this encounter
--- OUTSIDE RECORDS SUMMARY | 2022-03-07 11:29 | XMS_ITS | Encounter Summary ---
:1970 Author Organization [employer] Address [address] [place] [address] Care Team Providers Name Role Phone Oh Gray MD Primary Care Provider Encounter Details Date Type Department Care Team Description 05/10/2000 Education Unmatched, Results Social History Tobacco Use Types Packs/Day Years Used Date Smoking Tobacco: Never Assessed Sex Assigned at Date Recorded Not on file documented as of this encounter Progress Notes Unmatched, Results - 05/10/2000 12:00 AM CSTPROVIDER - Galo Gillis [facility]; ; S: Referred by clinic to Phone Line for help with wt mgt; Taking for anxiety; Fam hx: no DM, CAD, HTN or depression; hgt = 61 inches; wt = 160 lb; Currently not exercising, activity level limited by no physical conditions; In past, has lost wt via: Slim Fast and metabolite; Would like to eat healthier; Thinking about making changes in next 30 days; Would like help making lifestyle changes; O: Completed wt mgt screen, Explained wt mgmt philosophy and discussed options and Answered questions on wt loss member had; A: BMI = 30; Health risk factors are BMI over 30; caller appears appropriate to participate in phone-based programs; Seemed very receptive to info provided; Caller at preparation stage of change for making lifestyle behavior change(s) P: Caller enrolled in phone-based wt mgt course; Referred to: phone line counselor; JOCELYN; ; NED GLASS GLAZIER documented in this encounter Plan of Treatment Not on filedocumented as of this encounter Visit Diagnoses Not on filedocumented in this encounter Care Teams Dental Ceramist Relationship Specialty Start Date End Date Oh Gray MD PCP - General 04/05/00 06/30/07 [facility] [id number] [place] [phone] documented as of this encounter
--- OUTSIDE RECORDS SUMMARY | 2022-03-07 11:29 | XMS_ITS | Encounter Summary ---
:1970 Author Organization [facility] Address [address] [place] [address] Care Team Providers Name Role Phone Oh Gray MD Primary Care Provider Encounter Details Date Type Department Care Team Description 01/16/2001 Orders Only Epic, [place] [address] Social History Tobacco Use Types Packs/Day Years Used Date Smoking Tobacco: Never Assessed Sex Assigned at Date Recorded Not on file documented as of this encounter Plan of Treatment Not on filedocumented as of this encounter Visit Diagnoses Not on filedocumented in this encounter Care Teams Spot Machine Operator Relationship Specialty Start Date End Date Oh Gray MD PCP - General 04/05/00 06/30/07 [facility] [address] [place] [address] documented as of this encounter
--- OUTSIDE RECORDS SUMMARY | 2022-03-07 11:29 | XMS_ITS | Encounter Summary ---
:1970 Author Organization [facility] Address [address] [place] [address] Care Team Providers Name Role Phone Oh Gray MD Primary Care Provider Encounter Details Date Type Department Care Team Description 08/17/2000 Orders Only Epic, [place] [address] Social History Tobacco Use Types Packs/Day Years Used Date Smoking Tobacco: Never Assessed Sex Assigned at Date Recorded Not on file documented as of this encounter Plan of Treatment Not on filedocumented as of this encounter Visit Diagnoses Not on filedocumented in this encounter Care Teams Chief Writer Relationship Specialty Start Date End Date Oh Gray MD PCP - General 04/05/00 06/30/07 [facility] [address] [place] [address] documented as of this encounter
--- OUTSIDE RECORDS SUMMARY | 2022-03-07 11:29 | XMS_ITS | Encounter Summary ---
:1970 Author Organization [facility] Address [address] [place] [address] Care Team Providers Name Role Phone Oh Gray MD Primary Care Provider Encounter Details Date Type Department Care Team Description 11/07/2000 Orders Only Epic, [place] [address] Social History Tobacco Use Types Packs/Day Years Used Date Smoking Tobacco: Never Assessed Sex Assigned at Date Recorded Not on file documented as of this encounter Plan of Treatment Not on filedocumented as of this encounter Visit Diagnoses Not on filedocumented in this encounter Care Teams Library Cataloging Technician Relationship Specialty Start Date End Date Oh Gray MD PCP - General 04/05/00 06/30/07 [facility] [address] [place] [address] documented as of this encounter
--- OUTSIDE RECORDS SUMMARY | 2022-03-07 11:29 | XMS_ITS | Encounter Summary ---
:1970 Author Organization [facility] Address [address] [place] [address] Care Team Providers Name Role Phone Padmini Park PA-C Primary Care Provider Encounter Details Date Type Department Care Team Description 12/19/2000 Orders Only Lb Jain, [facility], [address] [place], [place] [phone] Social History Tobacco Use Types Packs/Day Years Used Date Smoking Tobacco: Never Assessed Sex Assigned at Date Recorded Not on file documented as of this encounter Plan of Treatment Not on filedocumented as of this encounter Procedures Procedure Name Priority Date/Time Associated Diagnosis Comme nts PAP TEST, ROUTINE Routine 12/19/2000 2:00 PM Resu lts for this CDT procedure are i n the results section. documented in this encounter Results PAP SMEAR, ROUTINE (12/19/2000 2:00 PM CDT) [facility] Method Time Signature Pap Smear, See Separate Report [facility] Routine Performed at [facility] Specimen Anatomical Collection Method Collection Time Receive d Time (Source) Location / / Volume Laterality 12/19/2000 2:00 PM 1 CDT 10:03 AM CDT Lb Mckeon KEY[facility], ENVIRONMENTAL PROTECTION INSPECTOR LAB_1 Performing Organization Address City/State/ZIP Code Phon e Number [facility] [phone] [facility] [address] [phone] documented in this encounter Visit Diagnoses Not on filedocumented in this encounter Care Teams Occupational Hygienist Relationship Specialty Start Date End Date Padmini Park PA-C PCP - General Family Practice 04/05/12 01/19/16 documented as of this encounter
--- OUTSIDE RECORDS SUMMARY | 2022-03-07 11:29 | XMS_ITS | Encounter Summary ---
:1970 Author Organization [facility] Address [address] [place] [address] Care Team Providers Name Role Phone Oh Gray MD Primary Care Provider Encounter Details Date Type Department Care Team Description 12/19/2000 Orders Only Unknown, [facility] [address] [place], [place] [phone] (Wo rk) Social History Tobacco Use Types Packs/Day Years Used Date Smoking Tobacco: Never Assessed Sex Assigned at Date Recorded Not on file documented as of this encounter Plan of Treatment Not on filedocumented as of this encounter Procedures Procedure Name Priority Date/Time Associated Diagnosis Comme nts SENIOR GOVERNMENT PROGRAM ANALYST CYTOLOGY Routine 12/19/2000 2:00 PM Results f or this CDT procedure are i n the results section . documented in this encounter Results SENIOR GOVERNMENT PROGRAM ANALYST CYTOLOGY (12/19/2000 2:00 PM CDT) [facility] Method Time Signature Food And Beverage Intern Cytology Food And Beverage Intern Cytology Report [facility] Patient Name: KEARA ROB Taken: 12/19/00 Received: 12/21/00 Reported: 01/02/01 Physician(s): HELEN BALNCO ([id number]) ? [id number] Final Cytologic Diagnosis Cervical Endocervical,routine: ? Satisfactory for evaluation. ??Endocervical cells and/or squamous metaplastic cells ??present. ? WITHIN NORMAL LIMITS (WNL) ? Comment tlp/01/02/01 Electronically Signed Out By STAN Whipple (ASCP)STAN Whipple (ASCP) ? Source of Specimen(s) Cervical Endocervical,routine Clinical History Date of Last Menstrual Period: ? 12/02/00 Menstrual History: Contraceptive History: Control Pills Cancer History: Infection History: Treatment History: Other Clinical Conditions: LAST PAP: 10/21/99 Other Related Clinical Data Specimen Anatomical Collection Method Collection Time Receive d Time (Source) Location / / Volume Laterality 12/19/2000 2:00 PM 1 CDT 12:00 PM CDT Physician Unknown UNLISTED CODE Performing Organization Address City/State/ZIP Code Phon e Number [address] [address] [place], [place] [phone] documented in this encounter Visit Diagnoses Not on filedocumented in this encounter Care Teams Customer Advisor Relationship Specialty Start Date End Date Oh Gray MD PCP - General 04/05/00 06/30/07 [facility] [address] [place] [address] documented as of this encounter
--- OUTSIDE RECORDS SUMMARY | 2022-03-07 11:29 | XMS_ITS | Encounter Summary ---
:1970 Author Organization [facility] Address [address] [place] [address] Care Team Providers Name Role Phone Oh Gray MD Primary Care Provider Encounter Details Date Type Department Care Team Description 12/19/2000 Office Visit [facility] L[facility] Mckeon, GYNECOLOGIC EX AMINATION; Obstetrics and CORE LAYING MACHINE OPERATOR, MANAGER HEAVY DUTY DYSMENORRHEA; Gynecology CONTRACEPT PILL SURVEILL; [id number] [facility] SCREENING MAL NEOP-CERVIX [place], [place] [address] Social History Tobacco Use Types Packs/Day Years Used Date Smoking Tobacco: Never Assessed Sex Assigned at Date Recorded Not on file documented as of this encounter Progress Notes Lb Mckeon - 12/19/2000 12:00 AM CDTS: The patient presents today for routine health maintenance. She is on Alesse. Review of symptoms is negative. However, she does still need to take ibuprofen for menstrual cramps and she states that she has a heavy flow. She has been on diet pills for three months, has been on Metabolite in the past, and we did discuss the risk involved with diet pills even though they are a natural weight loss method. She has joined [employer] 1-2-3 and plans on going off the diet pill. She had an abnormal Pap smear in 1994 and colposcopies have been normal since. She has had one Pap smear since. We did discuss the need of exercise. She had her eyes checked two years ago, is supposed to wear glasses, however, she does not wear them. She had her teeth checked. She denies any gastrointestinal problems; however, she has had some on and off pain below her sternum after going camping this last weekend. She denies any genitourinary problems. She exercises by walking and doing Tae Mitch. She does do breast self-exam and we reviewed [facility]. She is a nonsmoker. Alcohol is twice a month. Caffeine is one to two a day and eight glasses of water a day. She is from her . She is 2, para 2. She had bed rest for the first for spotting and had C-sections twice for surgery for decelerations and failure to progress. She had worked in [employer], is currently unemployed. Family history: Cancer: Dad has had neck cancer, was an alcoholic. Heart disease: None. Hypertension: None. Diabetes: None. Strokes: None. Thyroid: None. Bleeding disorders: None. Osteoporosis: None. Glaucoma: Mother. O: The patient is 152.4 pounds, blood pressure 108/60. Thyroid is within normal limits. Lung sounds clear bilaterally. Heart is normal sinus rhythm without murmur. Axillae with no dominant masses. Breasts with no nipple retraction, dimpling, abnormal discharge, discoloration or dominant masses. Abdomen is soft and nontender. External genitalia is pink, no lesions or discharge. Vaginal vault with a clear discharge noted. The uterus is firm, nontender and retroverted. Right and left adnexa with no masses palpable, nontender and rectal exam confirmed this. A: 1. Essentially normal exam with no contraindications to oral contraceptives. 2. Dysmenorrhea. P: Pap smear was done. The patient refused to have a Gen-Probe done. We will switch the patient to Desogen 1 tablet p.o. q.day x 3 cycles with three refills. She will see if her flow decreases as well as her dysmenorrhea. The patient is to watch what she eats. If she continues to have a problem with nausea as well as cramping in her stomach, then she is to see family practice for further assessment. IN SUMMARY: ROUTINE HEALTH MAINTENANCE, DYSMENORRHEA cc: RO Paris documented in this encounter Plan of Treatment Not on filedocumented as of this encounter Visit Diagnoses Diagnosis Gynecological examination Dysmenorrhea Surveillance of previously prescribed co ntraceptive pill Screening for malignant neoplasm of the cervix documented in this encounter Care Teams Phytochemistry Professor Relationship Specialty Start Date End Date Oh Gray MD PCP - General 04/05/00 06/30/07 [facility] [id number] [place] [address] documented as of this encounter
--- OUTSIDE RECORDS SUMMARY | 2022-03-07 11:29 | XMS_ITS | Encounter Summary ---
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 She has noticed a raised itchy rash on the left side of her neck and also on the right breast. She also has an area of hyperpigmented skin on her left forearm. Daughter recently had ringworm. She has tried some tmdv-ski-lffdpqz cortisone cream occasionally to the lesion on the arm. Second problem is that of situational stress. She has had many problems with this in the past. She feels that things are out of control and she's been having more tension headaches. She was just seen in clinic by Dr. Gray on 07-30-00. At that time she was given amitriptyline 10 mg to use 1-3 po qhs. Keara states she has been taking 1-2 at night but still has difficulty sleeping. It should be noted that she is continuing to take an pmpv-jwf-rqxnavr diet pill I believe called Xenedine (sp ??). (I am suspicious that this medication may contain ephedra or similar substance). She states she lies in bed at night, her heart is racing, she finds it difficult to calm her thoughts; and oftentimes, although she lies down to bed at an appropriate time, cannot get to sleep till 2:00 or 3:00 in the morning. 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 She has lost 9 pounds and is also attending [employer]. She has not been doing any regular exercise. Keara is quite stressed as she took off the last two days of work to move from a place in [place] to an apartment in [place]. She'll be living there with her two young daughters. She completed the move today but still has quite a bit of unpacking to do. She missed two days of work and is worried that her employer will have a hard time with this. She is requesting a note of excuse. Keara also is planning a trip to [facility], [facility] tomorrow morning with her sisters. She complains of anxiety on the plane and is requesting some medication to help with this. She has no chronic medical problems. Status post section and tubal ligation. 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 ETOH 0-1 per week. Caffeine 2 per day. Nicotine none. Medications: Alesse, amitriptyline as above, diet pills. No known drug allergies. O: Temperature 98.6, pulse 76, respirations 20, blood pressure 110/70. Alert, oriented, cooperative, well groomed, in no apparent distress until she starts talking about all of her many stressors, then she becomes quite tearful. There is an area of irritation under the right breast and on the left side of the neck. There is no discoloration noted, appears to be more rough skin. No papules or pustules are noted. On the left forearm there is a 1.5 centimeter annular hyperpigmented area that appears slightly flaky. A: 1. Stress reaction, situational. 2. Rash, fungal on arm. P: 1. Keara is given a note that says only she's been quite stressed regarding her move. She is strongly encouraged to quit taking the diet pills immediately. We did talk about the dangers of medications which may act as stimulants. I feel this may be contributing to her difficulty sleeping at night. She's also encouraged to watch her caffeine intake, should have no more than 2 per day and certainly not along with her diet pills. Strongly encouraged to get some regular exercise and increase sleep while on her trip to [facility]. She is given 0.25 mg of Xanax, to use 1-2 tablets 30 minutes prior to the flight, #4 with no refills. She is to avoid alcohol use along with this. Continue with amitriptyline, may take 30-40 mg qhs. Should follow up after the trip if her symptoms fail to resolve. 2. She is to use an antifungal cream such as Lotrimin, clotrimazole 1% twice a day on the lesion on the arm. May use an ixwd-kgv-yolpfua hydrocortisone cream to the lesions underneath the right breast and on the left neck. Follow up if no improvement. IN SUMMARY: STRESS REACTION, RASH cc: K BOLTER MULE OPERATOR documented in this encounter Plan of Treatment Not on filedocumented as of this encounter Visit Diagnoses Diagnosis Anxiety state, unspecified (HRC) Anxiety state, unspecified Rash and other nonspecific skin eruption documented in this encounter Care Teams Director Microbiology Relationship Specialty Start Date End Date Oh Gray MD PCP - General 04/05/00 06/30/07 [facility] [address] [place] [address] documented as of this encounter
--- OUTSIDE RECORDS SUMMARY | 2022-03-07 11:29 | XMS_ITS | Encounter Summary ---
:1970 Author Organization [employer] Address [address] [place] [address] Care Team Providers Name Role Phone Oh Gray MD Primary Care Provider Reason for Visit Reason Comments ARIADNE BENJAMIN MD av adult Encounter Details Date Type Department Care Team Description 10/25/2000 Telephone Careline Tabby Edwards RN SORE THROAT, MD (av [address] AFTER HOURS CARE - adult) [place], [place] [address] CAREL[place] [phone] [facility] [place], [place] [id number] Social History Tobacco Use Types Packs/Day Years Used Date Smoking Tobacco: Never Assessed Sex Assigned at Date Recorded Not on file documented as of this encounter Nursing Notes 10/25/2000 11:59 PM CDT >> TABBY EDWARDS Yohana Oct 25, 2000 5:24 PM >> CALL RECEIVED. Contact: TRIAGE REFERENCE: SORE THROAT - ADULT CNG (c) 1999 CONCERN: st pain since yesterday. muscle aches. STAT SYMPTOMS none per guideline. ASSESSMENT: Onset was gradual, duration is 2 day(s); dysphagia is present. Assessment: history of strep exposure and throat pain is moderate. PMH healthy. Current medications yes; food supplement. Medication allergies no. HOME TREATMENT: rest, increased fluids (up to 3 quarts daily unless otherwise contraindicated), sa lt water gargles: 1/4 tsp salt in 8 oz water q 2 hrs, lozenges such as sucrets, cepastat, acetaminop hen, humidity, c/b symptoms change or worsen. do not coat throat before appt, PLAN: josé miguel queen. documented in this encounter Plan of Treatment Not on filedocumented as of this encounter Visit Diagnoses Not on filedocumented in this encounter Care Teams Roof Service Technician Relationship Specialty Start Date End Date Oh Gray MD PCP - General 04/05/00 06/30/07 [facility] [id number] [place] [id number] documented as of this encounter
--- OUTSIDE RECORDS SUMMARY | 2022-03-07 11:30 | XMS_ITS | Encounter Summary ---
:1970 Author Organization [facility] Address [address] [place] [address] Care Team Providers Name Role Phone Oh Gray MD Primary Care Provider Encounter Details Date Type Department Care Team Description 10/21/1999 Orders Only Unknown, Physici an [address] [place], [place] [id number] (Wo rk) Social History Tobacco Use Types Packs/Day Years Used Date Smoking Tobacco: Never Assessed Sex Assigned at Date Recorded Not on file documented as of this encounter Plan of Treatment Not on filedocumented as of this encounter Procedures Procedure Name Priority Date/Time Associated Diagnosis Comme nts DATASTAGE CONSULTANT CYTOLOGY Routine 10/21/1999 10:30 AM Results for this CDT procedure are i n the results section . documented in this encounter Results DATASTAGE CONSULTANT CYTOLOGY (10/21/1999 10:30 AM CDT) [facility] Method Time Signature Lead Software Development Engineer Cytology Lead Software Development Engineer Cytology Report [facility] Patient Name: KEARA ROB Taken: 10/21/99 Received: 10/25/99 Reported: 10/27/99 Physician(s): Alfreda Sheth MD PhD ([id number]) NILAY RANGEL ? [id number] Final Cytologic Diagnosis Cervical Endocervical,routine: ? Satisfactory for evaluation. ??Endocervical cells and/or squamous metaplastic cells ??present. ? WITHIN NORMAL LIMITS (WNL) ? Comment sv Electronically Signed Out By STAN Haines (ASCP) STAN Haines (ASCP) ? Source of Specimen(s) Cervical Endocervical,routine Clinical History Date of Last Menstrual Period: ? 10/05/99 Menstrual History: Contraceptive History: Cancer History: Infection History: Treatment History: Other Clinical Conditions: LAST PAP: 05/04/97 [id number] Other Related Clinical Data Specimen Anatomical Collection Method Collection Time Receive d Time (Source) Location / / Volume Laterality 10/21/1999 10:30 10/25/1999 9:12 AM CDT AM CDT Physician Unknown UNLISTED CODE Performing Organization Address City/State/ZIP Code Phon e Number [address] [address] [place], [place] [phone] documented in this encounter Visit Diagnoses Not on filedocumented in this encounter Care Teams Transformation Consultant Relationship Specialty Start Date End Date Oh Gray MD PCP - General 04/05/00 06/30/07 [facility] [id number] [place] [id number] documented as of this encounter
--- OUTSIDE RECORDS SUMMARY | 2022-03-07 11:30 | XMS_ITS | Encounter Summary ---
:1970 Author Organization [facility] Address [address] [place] [address] Care Team Providers Name Role Phone Chirag Metzger PA-C Primary Care Provider Encounter Details Date Type Department Care Team Description 11/03/1999 Orders Only Keya Gay MD [address] [address] (Wo rk) Social History Tobacco Use Types Packs/Day Years Used Date Smoking Tobacco: Never Assessed Sex Assigned at Date Recorded Not on file documented as of this encounter Plan of Treatment Not on filedocumented as of this encounter Visit Diagnoses Not on filedocumented in this encounter Care Teams Sugar Refiner Relationship Specialty Start Date End Date Chirag Metzger PA-C PCP - General Physician Data Control Clerk Supervisor 07/06/[address] [place] [address] documented as of this encounter
--- OUTSIDE RECORDS SUMMARY | 2022-03-07 11:30 | XMS_ITS | Encounter Summary ---
:1970 Author Organization [facility] Address [address] [place] [address] Care Team Providers Name Role Phone Keya Gay MD Primary Care Provider Reason for Visit Reason Comments Dental Concerns Encounter Details Date Type Department Care Team Description 02/04/2000 Telephone Careline Ary Young RN Dental Concerns [address] [place], [place] [address] [place] [address] [phone] Social History Tobacco Use Types Packs/Day Years Used Date Smoking Tobacco: Never Assessed Sex Assigned at Date Recorded Not on file documented as of this encounter Nursing Notes 02/04/2000 11:59 PM CDT Addended by: ARY YOUNG on: 02/04/2000,2:24 PM Modules accepted: Progress Notes >> ROLANDA GOMEZ Sat Feb 04, 2000 1:28 PM pt calling back, wondering if we got a hold of DDS, told pt th at Dr Holcomb was paged and did not callback, told pt I will try paging the regular dentist as Dr Holcomb may be doing a procedure , told pt that compazine is for nausea and discussed homecare for vomitting per the adult vomitting cng, paged Сергей Kim, per Dr Kim, the nausea is not from the gas, na usea and vomitting would be from thevicodin, pt should take a compazine suppository and then not isaiah e the vicodin and just take otc pain medications, cb to pt and told her what DDS said, pt will follow DDS adivce, cb new/worsening sx, further questions/concerns caller verbalizes understanding of plan >> ARY YOUNG Sat Feb 04, 2000 12:45 PM >> COMPLETED ON Sat Feb 04, 2000 2:00 PM >> CALL RECEIV ED. Contact: Had 2 wisdom teeth removed yesterday at dental. Today vomit x 3. After taking fluids or soft food, vomits. Becoming weak and very nauseated. No further bleeding. Pain i s manageable. Dr. Dc had given compazine and wondering if it's for nausea on 08-22-99 and wondering if can take it. Nausea startedafter getting laughing gas. Pt also thinks that the nausea may be from vicodin. 12:38pm Dr. Holcomb beeped meds: vicodin but last dose was last night PMH: healthy nkd a 2:23pm Dr. Holcomb called and will call pt. documented in this encounter Plan of Treatment Not on filedocumented as of this encounter Visit Diagnoses Not on filedocumented in this encounter Care Teams Statement Services Representative Relationship Specialty Start Date End Date Keya Gay MD PCP - General 04/01/1998 04/04/[address] [place] [address] [place] [address] documented as of this encounter
--- OUTSIDE RECORDS SUMMARY | 2022-03-07 11:30 | XMS_ITS | Encounter Summary ---
:1970 Author Organization [facility] Address [address] [place] [address] Care Team Providers Name Role Phone Keya Gay MD Primary Care Provider Encounter Details Date Type Department Care Team Description 01/19/2000 Orders Only Epic, [place] [address] Social History Tobacco Use Types Packs/Day Years Used Date Smoking Tobacco: Never Assessed Sex Assigned at Date Recorded Not on file documented as of this encounter Plan of Treatment Not on filedocumented as of this encounter Visit Diagnoses Not on filedocumented in this encounter Care Teams Assessment Technician Relationship Specialty Start Date End Date Keya Gay MD PCP - General 04/01/1998 04/04/00 [address] [place] [address] documented as of this encounter
--- OUTSIDE RECORDS SUMMARY | 2022-03-07 11:30 | XMS_ITS | Encounter Summary ---
:1970 Author Organization [facility] [facility] Address [address] [place] [address] Care Team Providers Name Role Phone Keya Gay MD Primary Care Provider Reason for Visit Reason Comments DIARRHEA VIA INTERFACE Encounter Details Date Type Department Care Team Description 02/14/2000 Office Visit [facility] Naheed Tyler V IRAL ENTERITIS NOS Practice [address] [place], [place] [address] CLINIC [phone] [place] [address] Social History Tobacco Use Types Packs/Day Years Used Date Smoking Tobacco: Never Assessed Sex Assigned at Date Recorded Not on file documented as of this encounter Progress Notes Naheed Tyler - 02/14/2000 12:00 AM CDTS: The patient is a 29-year-old female who is complaining of one day history of diarrhea. She states yesterday morning she was in her usual state of health and had coffee and orange juice without food. This caused a slight upset stomach. She felt better as the day progressed and was able to eat a dinner of macaroni and cheese, pork chop and cabbage. This morning she started having abdominal cramping and diarrhea. She has noted no blood in the stool. No fever. She also has no nausea or vomiting. She states abdominal cramping seems to increase. She has an episode of diarrhea, and she is relieved. She is having approximately 5 to 7 episodes today. She has no ill contacts. In addition the patient is concerned about being over-weight. She says she has been trying diet and exercise and has not been successful. She was interested in talking about prescription diet aids. She has been through [facility] and [employer] and states she has been exercising on a regular basis. She would like to lose about 30 pounds. O: Alert female. No distress. Weight 151. Height 5 feet, 1 inch. Heart regular rate and rhythm. Lungs clear. Abdomen slightly obese. Normal active bowel sounds. Some diffuse tenderness in the lower quadrants. No epigastric tenderness. No rebound or guarding. A/P: 1) Gastroenteritis, viral. The patient should push fluids including Gatorade, herbal teas, flat soda. If she feels hungry she can try solid foods today but should stick to bland things and avoid dairy or high fatty foods. She should expect the diarrhea to resolve in the next 24 hours. If she notes any fever or blood, she will need to be reevaluated. 2) Obesity. We discussed the role of diet and exercise and weight loss. I have encouraged patient to eat a healthy diet and to maintain a schedule of regular activities. We discussed Xenacal and Meridia, their mode of action, and the potential cost to the patient. Pros and cons of these were outlined. She understands that these would be out of pocket expenses. She would like to think about her weight loss plan and will make a follow up appointment regarding this. IN SUMMARY: VIRAL GASTROENTERITIS. OBESITY. cc: documented in this encounter Plan of Treatment Not on filedocumented as of this encounter Visit Diagnoses Diagnosis Intestinal infection due to other organi sm, not elsewhere classified documented in this encounter Care Teams Ward Secretary Relationship Specialty Start Date End Date Keya Gay MD PCP - General 04/01/1998 04/04/[address] [place] [address] documented as of this encounter
--- OUTSIDE RECORDS SUMMARY | 2022-03-07 11:30 | XMS_ITS | Encounter Summary ---
:1970 Author Organization [facility] Address [address] [place] [address] Care Team Providers Name Role Phone Keya Gay MD Primary Care Provider Reason for Visit Reason Comments HEADACHE Encounter Details Date Type Department Care Team Description 11/08/1999 Telephone Careline Deidra Prado RN HEADACHE [address] [place], [place] [address] [phone] [place] [address] Social History Tobacco Use Types Packs/Day Years Used Date Smoking Tobacco: Never Assessed Sex Assigned at Date Recorded Not on file documented as of this encounter Nursing Notes 11/08/1999 11:59 PM CDT CALL RECEIVED. Contact: 29 year old,female tension headache has compazine supp and acyclovir is wondering if either of those are for headache took 2 es tylenol 4 hrs ago without relief no nausea no vomiting no visual disturbance no dizziness no neurological changes headache generalized not able to sleep has tylenol with codiene for tooth pain she will take tylenol #3 now recall in 1 hr is sx persist increase fluids clear,non caffiene non carbonated recall prn if sx do not resolve or increase call pmd in am if sx do not resolve - Deidra Prado Started and completed on SunNov 08, 1999 1:16 AM documented in this encounter Plan of Treatment Not on filedocumented as of this encounter Visit Diagnoses Not on filedocumented in this encounter Care Teams Density Control Puncher Relationship Specialty Start Date End Date Keya Gay MD PCP - General 04/01/1998 04/04/[address] [place] [address] documented as of this encounter
--- OUTSIDE RECORDS SUMMARY | 2022-03-07 11:30 | XMS_ITS | Encounter Summary ---
:1970 Author Organization [facility] Address [address] [place] [address] Care Team Providers Name Role Phone Oh Gray MD Primary Care Provider Reason for Visit Reason Comments CONSULT VIA INTERFACE Encounter Details Date Type Department Care Team Description 04/26/2000 Office Visit [facility] Joey Allen MD [facility] Social History Tobacco Use Types Packs/Day Years Used Date Smoking Tobacco: Never Assessed Sex Assigned at Date Recorded Not on file documented as of this encounter Progress Notes Joey Allen - 04/26/2000 12:00 AM CSTS: Patient is sent for examination of her breast. She had had a complaint of tenderness. On her breast examination there was a question of mass in the left breast that was found on palpation. A subsequent mammogram and ultrasound was done and there was no evidence of malignancy or suspicious lesions. The patient is taking control pills. She has noticed that her breast pain and tenderness is more consistent and not strictly cyclic as it had been in the past. O: I examined both the films and the reports of the ultrasound and mammogram. Her breasts were palpated; her breasts are fairly large. I feel no dominant mass and I particularly tried to pay attention to the area in the upper outer quadrant area on the left side. Both axillae are clinically normal. There are no abnormal skin or nipple changes and I do not feel a dominant mass. A: Breast examination and breast pain. P: I suspect that the breast tenderness she is experiencing bilaterally may be due to the control pills that she is taking an advised her to contact her doctor about considering a switch to see if this would make some difference in the breast pain and tenderness. cc: THANIA Rand E PERSON documented in this encounter Plan of Treatment Not on filedocumented as of this encounter Visit Diagnoses Diagnosis Mastodynia documented in this encounter Care Teams Sap Portal Developer Relationship Specialty Start Date End Date Oh Gray MD PCP - General 04/05/00 06/30/07 [facility] [address] [place] [address] documented as of this encounter
--- OUTSIDE RECORDS SUMMARY | 2022-03-07 11:30 | XMS_ITS | Encounter Summary ---
:1970 Author Organization [facility] Address [address] [place] [address] Care Team Providers Name Role Phone Keya Gay MD Primary Care Provider Encounter Details Date Type Department Care Team Description 03/01/2000 Orders Only Epic, [place] [address] Social History Tobacco Use Types Packs/Day Years Used Date Smoking Tobacco: Never Assessed Sex Assigned at Date Recorded Not on file documented as of this encounter Plan of Treatment Not on filedocumented as of this encounter Visit Diagnoses Not on filedocumented in this encounter Care Teams Research And Development Chemist Relationship Specialty Start Date End Date Keya Gay MD PCP - General 04/01/1998 04/04/00 [address] [place] [address] documented as of this encounter
--- OUTSIDE RECORDS SUMMARY | 2022-03-07 11:30 | XMS_ITS | Encounter Summary ---
:1970 Author Organization [employer] Address [address] [place] [address] Care Team Providers Name Role Phone Keya Gay MD Primary Care Provider Reason for Visit Reason Comments HEADACHE VIA INTERFACE Encounter Details Date Type Department Care Team Description 11/18/[address] [facility] Chantell Gay MD HEADACHE Practice [address] [place] [address] [place] [address] [place], [place] [address] [phone] Social History Tobacco Use Types Packs/Day Years Used Date Smoking Tobacco: Never Assessed Sex Assigned at Date Recorded Not on file documented as of this encounter Progress Notes Keya Gay - 11/18/1999 12:00 AM CDTS: 29-year old female complains of headaches off and on for the last two weeks. Feels like it's at the top of her forehead on top of her head, sometimes going downward towards her eyes. Similar to the same headache she had in the evening she came into Urgent Care. This was is not associated with nausea as her previous one was. She denies any visual changes. Feels that it's related to stress that she has at work. She is changing her job but is not leaving until November 27. Says it feels the same way as her previous headaches that were diagnosed as tension headaches. When she does get occasional headaches she takes one 500mg Tylenol which doesn't always work or she takes one Advil. However, for some reason today she took four Advil at about 11:15. She just had a wisdom tooth pulled. O: Pleasant, alert and cooperative. BP: 112/76. Both tympanic membranes were pearly de los santos in color. Extraocular movements were intact. PERRL. Fundi showed sharp vessels and disks. No maxillary sinus tenderness. Mouth was moist with gauze in the left posterior aspect with some blood on it, this is where her wisdom tooth was pulled. Neck showed some tenderness around the upper trapezius muscles. A: Tension headaches. P: Instructed her that she could take Tylenol up to 1000mg every four to six hours or use Advil which is the same as Ibuprofen and Motrin 600-800mg every six to eight hours. Since she's not having nausea, she does not need to take the Compazine Suppositories that she received at her last visit , however, if she does she may use those since she still has that at home. Follow up prn. IN SUMMARY: HEADACHES. cc: documented in this encounter Plan of Treatment Not on filedocumented as of this encounter Visit Diagnoses Diagnosis Headache(784.0) Headache documented in this encounter Care Teams Lift Operator Relationship Specialty Start Date End Date Keya Gay MD PCP - General 04/01/1998 04/04/[address] [place] [address] documented as of this encounter
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
--- OUTSIDE RECORDS SUMMARY | 2022-03-07 11:30 | XMS_ITS | Encounter Summary ---
:1970 Author Organization [facility] Address [address] [place] [address] Care Team Providers Name Role Phone Keya Gay MD Primary Care Provider Reason for Visit Reason Comments Dental Concerns Encounter Details Date Type Department Care Team Description 11/01/1999 Telephone Careline Anayeli Lobato, Dental Concerns [address] RN [place], [place] [address] AFTER HOURS [facility] [phone] [address] [address] Social History Tobacco Use Types Packs/Day Years Used Date Smoking Tobacco: Never Assessed Sex Assigned at Date Recorded Not on file documented as of this encounter Nursing Notes 11/01/1999 11:59 PM CDT CALL RECEIVED. Contact: self [phone] TRIAGE REFERENCE: DENTAL TRAUMA - TRAUMA CNG (c) 1998 COMPLAINT: pt calling, states that she is having tooth pain,left top and bottom molars are painful,no swelling or tissue redness noticed, no fever, no facial swelling, pt states that she has tooth p ain that radiates into her neck, and also c/o headache, pt sounds as if she is quite uncomfortable. pt states that she has an appt at [facility] on november 17 to get these teeth taken care of, states that she needs a filling and may need other work done too. pt wanting to be seen tonight by a denti st, [facility] is closed now, STAT SYMPTOMS: no stat symptoms per guideline. ASSESSMENT: Symptoms onset: insidious, duration: 1 day(s). Description/Location: adult tooth, left upper, left lower. Associated symptoms: heat sensitive and cold sensitive. PMH: . CURRENT MEDICATIONS: . MEDICATION ALLERGIES: . WEIGHT (PEDS): . HOME TX:not discussed, PLAN: told pt that I will page the DDS on-call and will have him call her, 6:[address] Hazel. 6:53pm paged Dr Hong again, 6:[address] Hong he will call pt and take care of things, - Anayeli Lobato Started on SunNov 01, 1999 6:30 PM Completed on SunNov 01, 1999 6:59 PM documented in this encounter Plan of Treatment Not on filedocumented as of this encounter Visit Diagnoses Not on filedocumented in this encounter Care Teams Recyclable Materials Collector Relationship Specialty Start Date End Date Keya Gay MD PCP - General 04/01/1998 04/04/[address] [place] [address] documented as of this encounter
--- OUTSIDE RECORDS SUMMARY | 2022-03-07 11:30 | XMS_ITS | Encounter Summary ---
:1970 Author Organization [facility] Address [address] [place] [address] Care Team Providers Name Role Phone Keya Gay MD Primary Care Provider Encounter Details Date Type Department Care Team Description 02/15/2000 Orders Only Epic, [place] [address] Social History Tobacco Use Types Packs/Day Years Used Date Smoking Tobacco: Never Assessed Sex Assigned at Date Recorded Not on file documented as of this encounter Plan of Treatment Not on filedocumented as of this encounter Visit Diagnoses Not on filedocumented in this encounter Care Teams Satellite Manager Relationship Specialty Start Date End Date Keya Gay MD PCP - General 04/01/1998 04/04/00 [address] [address] documented as of this encounter
--- OUTSIDE RECORDS SUMMARY | 2022-03-07 11:30 | XMS_ITS | Encounter Summary ---
:1970 Author Organization [facility] Address [address] [place] [address] Care Team Providers Name Role Phone Chirag Metzger PA-C Primary Care Provider Encounter Details Date Type Department Care Team Description 12/20/1999 Orders Only Andrew Pappas MD [address] [place], [place] [id number] (Wo rk) Social History Tobacco Use Types Packs/Day Years Used Date Smoking Tobacco: Never Assessed Sex Assigned at Date Recorded Not on file documented as of this encounter Plan of Treatment Not on filedocumented as of this encounter Visit Diagnoses Not on filedocumented in this encounter Care Teams Braider Operator Relationship Specialty Start Date End Date Chirag Metzger PA-C PCP - General Physician Silver Steward 07/06/16 [address] [place] [address] documented as of this encounter
--- OUTSIDE RECORDS SUMMARY | 2022-03-07 11:30 | XMS_ITS | Encounter Summary ---
:1970 Author Organization [facility] Address [address] [place] [address] Care Team Providers Name Role Phone Keya Gay MD Primary Care Provider Encounter Details Date Type Department Care Team Description 02/03/2000 Orders Only Epic, [place] [address] Social History Tobacco Use Types Packs/Day Years Used Date Smoking Tobacco: Never Assessed Sex Assigned at Date Recorded Not on file documented as of this encounter Plan of Treatment Not on filedocumented as of this encounter Visit Diagnoses Not on filedocumented in this encounter Care Teams Supervisor Tan Room Relationship Specialty Start Date End Date Keya Gay MD PCP - General 04/01/1998 04/04/00 [address] [place] [address] documented as of this encounter
--- OUTSIDE RECORDS SUMMARY | 2022-03-07 11:30 | XMS_ITS | Encounter Summary ---
:1970 Author Organization [employer] Address [address] [place] [address] Care Team Providers Name Role Phone Keya Gay MD Primary Care Provider Reason for Visit Reason Comments HEADACHE VIA INTERFACE Encounter Details Date Type Department Care Team Description 03/01/2000 Office Visit [facility] Fartun Tyler MD HEADACHE Practice [facility] [address] [facility] [address] [place], [place] [address] [place] [address] [phone] Social History Tobacco Use Types Packs/Day Years Used Date Smoking Tobacco: Never Assessed Sex Assigned at Date Recorded Not on file documented as of this encounter Progress Notes Naheed Tyler - 03/01/2000 12:00 AM CDTS: The patient is a 29 year old female who is here today complaining of one month history of headache. She states she has similar headaches off and on for years. She describes the headache as starting in the back of the neck, radiating across the top of the head and ending behind the left eye. She states the headache always worsens as the day goes by and also seems to worsen when she is under periods of stress. Occasionally the lights seem to bother her eyes. Once during the month she had a feeling of nausea. She describes the headache as throbbing and warm. She has no vision changes or blurred vision. She states she also feels very tight in her left upper shoulder. O: Alert and oriented female, in no distress. HEENT: No noticeable scalp tenderness. Ears: TMs and canals are normal bilaterally. Eyes: PERRL. EOMI. No sinus tenderness. Nose: Normal. Pharynx: Unremarkable. Neck supple, with no adenopathy. There is some tenderness to palpate over the left paraspinal area and along the left upper trapezius. A/P: Headache, musculoskeletal. We will start patient on muscle relaxant up to tid along with heating pad to this area. She can continue eouz-ipk-cxtkhju Tylenol or Motrin. We discussed the etiology of musculoskeletal headaches and a few simple stretching exercises were demonstrated. Side effects of the Flexeril was discussed with the patient and precautions were given. If the patient's headache is not resolved over the next few days, will consider referral for spinal manipulation. IN SUMMARY: HEADACHES cc: documented in this encounter Plan of Treatment Not on filedocumented as of this encounter Visit Diagnoses Diagnosis Headache(784.0) Headache documented in this encounter Care Teams Certified Paralegal Relationship Specialty Start Date End Date Keya Gay MD PCP - General 04/01/1998 04/04/[address] [place] [address] documented as of this encounter
--- OUTSIDE RECORDS SUMMARY | 2022-03-07 11:30 | XMS_ITS | Encounter Summary ---
:1970 Author Organization [facility] Address [address] [place] [address] Care Team Providers Name Role Phone Keya Gay MD Primary Care Provider Reason for Visit Reason Comments RASH VIA INTERFACE Encounter Details Date Type Department Care Team Description 12/20/1999 Office Visit [facility] DERMATITIS NOS [address] [place], [place] [address] Social History Tobacco Use Types Packs/Day Years Used Date Smoking Tobacco: Never Assessed Sex Assigned at Date Recorded Not on file documented as of this encounter Progress Notes Andrew Pappas - 12/20/1999 12:00 AM CDTS: Keara is in with an upper inner thigh rash that's been itching and bothering her for a month. She scratches it, and sometimes it drains. This has the appearance of a tinea cruris, and I'm going to treat her with Mycotin, 2% cream topically. She denies vaginal symptoms; she denies . She's had a tubal ligation. She's not having dysuria, frequency, hesitancy, urgency, fever or chills. Hopefully this will bring resolution; recheck if symptoms persist or increase. cc: documented in this encounter Plan of Treatment Not on filedocumented as of this encounter Visit Diagnoses Diagnosis Contact dermatitis and other eczema, due to unspecified cause documented in this encounter Care Teams Xerox Machine Operator Relationship Specialty Start Date End Date Keya Gay MD PCP - General 04/01/1998 04/04/[address] [place] [address] documented as of this encounter
--- OUTSIDE RECORDS SUMMARY | 2022-03-07 11:30 | XMS_ITS | Encounter Summary ---
:1970 Author Organization [facility] Address [address] [place] [address] Care Team Providers Name Role Phone Chirag Metzger PA-C Primary Care Provider Encounter Details Date Type Department Care Team Description 12/16/1999 Orders Only Epic, [place] [address] Social History Tobacco Use Types Packs/Day Years Used Date Smoking Tobacco: Never Assessed Sex Assigned at Date Recorded Not on file documented as of this encounter Plan of Treatment Not on filedocumented as of this encounter Visit Diagnoses Not on filedocumented in this encounter Care Teams Coil Tier Relationship Specialty Start Date End Date Chirag Metzger PA-C PCP - General Physician Risk Consulting Treasury Director 07/06/16 [address] [place] [id number] documented as of this encounter
--- OUTSIDE RECORDS SUMMARY | 2022-03-07 11:30 | XMS_ITS | Encounter Summary ---
:1970 Author Organization [employer] Address [address] [place] [address] Care Team Providers Name Role Phone Oh Gray MD Primary Care Provider Reason for Visit Reason Comments PAIN, NOS VIA INTERFACE Encounter Details Date Type Department Care Team Description 04/19/2000 Office Visit [facility] Deena Fry L UMP OR MASS IN Practice GOVERNMENT SERVICES PROFESSIONAL, HYDRAULIC STRAINER OPERATOR BREAST [address] [facility] [place] [address] [place] [address] [phone] (Wo rk) Social History Tobacco Use Types Packs/Day Years Used Date Smoking Tobacco: Never Assessed Sex Assigned at Date Recorded Not on file documented as of this encounter Progress Notes Deena Fry - 04/19/2000 12:00 AM CSTS: [age] [id number] female presents to clinic concerned about breast pain of the left upper outer quadrant over the last month. This seems to be getting worse. She also has some intermittent tingling in the medial aspects of both breasts, however this is infrequent. She has not found any lumps or bumps on breast self exam, although admits that she does not do this very frequently. She has no nipple discharge or changes. No axillary or supraclavicular nodes were noted. She has no fever, chills or sweats. She has no history of breast cancer personal or family. She has had no redness or swelling. No fever, chills or sweats. She has never had a mammogram. No known drug allergies. O: Pulse 80, blood pressure 130/80. Alert, oriented, cooperative, well groomed, in no apparent distress. Breasts are large and pendulous, there are no skin changes, they appear symmetric. No nipple discharge. No axillary or supraclavicular lymphadenopathy. Right breast is without masses or tenderness. Left breast has remarkable tenderness in the left upper outer quadrant, there is at least one palpable mobile lump approximately 1 centimeter, several others scattered close to this lesion. A: Left-sided breast pain with lump. P: Will send for mammogram, ultrasound and surgical consult. She is to follow up with me for results if she does not receive these. Incidentally, Keara mentions that she has made an appointment with me tomorrow to discuss weight control issues, however upon quick review of her chart I note that we have discussed this problem in the past as she has also done with several other providers. I have referred her to [email or web address], along with giving her written information on weight management and she has not followed up with [facility]. She did state that she was interested in either Meridia or Xenical until she found out she needed to pay for these herself and this is not a possibility. She admits to quite a bit of snacking, no regular exercise. I did contact [facility] and gave them her phone number and history, and they will contact her. The patient understands and agrees with this plan. cc: EE URN ATTENDANT documented in this encounter Plan of Treatment Not on filedocumented as of this encounter Visit Diagnoses Diagnosis Lump or mass in breast documented in this encounter Care Teams Photographic Double Relationship Specialty Start Date End Date Oh Gray MD PCP - General 04/05/00 06/30/07 [facility] [id number] [place] [address] documented as of this encounter
--- OUTSIDE RECORDS SUMMARY | 2022-03-07 11:31 | XMS_ITS | Encounter Summary ---
:1970 Author Organization [facility] Address [address] [place] [address] Care Team Providers Name Role Phone Chirag Metzger PA-C Primary Care Provider Encounter Details Date Type Department Care Team Description 09/02/1999 Orders Only Andrew Pappas MD [address] [place], [place] [phone] (Wo rk) Social History Tobacco Use Types Packs/Day Years Used Date Smoking Tobacco: Never Assessed Sex Assigned at Date Recorded Not on file documented as of this encounter Plan of Treatment Not on filedocumented as of this encounter Visit Diagnoses Not on filedocumented in this encounter Care Teams Renewable Energy Engineer Relationship Specialty Start Date End Date Chirag Metzger PA-C PCP - General Physician Printing Press Machinist 07/06/16 [address] [place] [address] documented as of this encounter
--- OUTSIDE RECORDS SUMMARY | 2022-03-07 11:31 | XMS_ITS | Encounter Summary ---
:1970 Author Organization [employer] Address [address] [place] [address] Care Team Providers Name Role Phone Keya Gay MD Primary Care Provider Reason for Visit Reason Comments SINUS PAIN/PRESSURE VIA INTERFACE Encounter Details Date Type Department Care Team Description 08/22/1999 Office Visit [facility] [address] [place], [place] [address] Social History Tobacco Use Types Packs/Day Years Used Date Smoking Tobacco: Never Assessed Sex Assigned at Date Recorded Not on file documented as of this encounter Progress Notes Luis Fernando Dc - 08/22/1999 12:00 AM CDTS: The patient complains of a frontal headache over the past 8 to 10 hours. She did wake up with a headache. Has been nauseated but no vomiting. Has had similar headaches in the past. She has not taken anything for this headache even though she has been offered ibuprofen. No numbness or weakness. No blurred or double vision. O: Alert and appears in obvious discomfort secondary to her headache. No scalp tenderness. PERRL, extraocular muscles intact, fundoscopic exam reveals sharp disk margins. Throat is clear. Neck is supple without adenopathy or thyromegaly. No nuchal rigidity. Lungs are clear bilaterally. No wheezes, rales or rhonchi. Heart: regular rate and rhythm without murmur, gallop or rub. Abdomen is soft and nontender. Exam is non-focal. A: Tension headache. P: Ibuprofen or acetaminophen. Compazine suppositories 25 mg p.r.n. b.i.d. F/u if not improving over the next 24 hours. IN SUMMARY: HEADACHE cc: documented in this encounter Plan of Treatment Not on filedocumented as of this encounter Visit Diagnoses Diagnosis Headache(784.0) Headache documented in this encounter Care Teams Extrusion Press Operator Relationship Specialty Start Date End Date Keya Gay MD PCP - General 04/01/1998 04/04/[address] [place] [address] documented as of this encounter
--- OUTSIDE RECORDS SUMMARY | 2022-03-07 11:31 | XMS_ITS | Encounter Summary ---
:1970 Author Organization [employer] Address [address] [place] [address] Care Team Providers Name Role Phone Keya Gay MD Primary Care Provider Reason for Visit Reason Comments SKIN TAGS VIA INTERFACE Encounter Details Date Type Department Care Team Description 12/07/1998 Office Visit [facility] Deena Fry S KIN HYPERTRO/ATROPH NOS; Practice SNUFF DRIER, FERRY ENGINEER INTEGUMENT TISS SYMP NEC; [address] [facility] [address] [place] [address] [phone] (Wo rk) Social History Tobacco Use Types Packs/Day Years Used Date Smoking Tobacco: Never Assessed Sex Assigned at Date Recorded Not on file documented as of this encounter Progress Notes Deena Fry - 12/07/1998 12:00 AM CDTS: 28-year-old woman presents to clinic for removal of a skin tag in her left axilla. She is offered removal in the past and had declined. The skin tag does get irritated occasionally and catches on things. She also mentions that she has been taking Metabolife appetite suppressant along with trying to diet. She's interested in getting more information on this. She eats fast food quite frequently. She's recently started some toning and walking. No chronic medical conditions. Medications: Metabolife. No known drug allergies. O: Height: 5'1''. Weight: 147 lbs. Blood pressure 110/60. Alert, oriented, cooperative, well groomed and in no apparent distress. Skin: in the left axillary area there is a fleshy colored pedunculated soft skin tag 3 mm in length. This is cleansed with Betadine and snipped with sterile scissors. There is not bleeding. She tolerated this well. A: 1. Skin tag removal. 2. Obesity. P: 1. Keara is given written information on [employer] [place] weight management program i.e. [facility] a Call to Change and Balanced Way classes. She is encouraged to call for enrollment in one of these programs. She is also given written information on the 1200 calorie diet along with information on fast food choices, healthy eating, low fat, low cholesterol recipes and reading labels. She is encouraged to begin one of the weight management programs and she may also follow-up with me if she feels this would be helpful in management of her weight. 2. We discussed increasing her activities and walking program was encouraged. IN SUMMARY: SKIN TAG REMOVAL, OBESITY cc: documented in this encounter Plan of Treatment Not on filedocumented as of this encounter Visit Diagnoses Diagnosis Unspecified hypertrophic and atrophic co ndition of skin Other symptoms involving skin and integu mentary tissues Obesity, unspecified ([facility]) Obesity, unspecified documented in this encounter Care Teams Nurse Administrator Relationship Specialty Start Date End Date Keya Gay MD PCP - General 04/01/1998 04/04/[address] [place] [address] documented as of this encounter
--- OUTSIDE RECORDS SUMMARY | 2022-03-07 11:31 | XMS_ITS | Encounter Summary ---
:1970 Author Organization [facility] Address [address] [place] [address] Care Team Providers Name Role Phone Keya Gay MD Primary Care Provider Reason for Visit Reason Comments COUGH Encounter Details Date Type Department Care Team Description 07/25/1998 Telephone Careline Brisa Lee RN COUGH [address] [place], [place] [address] [phone] [place], [address] Social History Tobacco Use Types Packs/Day Years Used Date Smoking Tobacco: Never Assessed Sex Assigned at Date Recorded Not on file documented as of this encounter Nursing Notes 07/25/1998 11:59 PM PURCHASE ANALYST >> CALL RECEIVED. Contact: Self >> BRISA LEE 07/25/1998 05:54 pm Body aches hot and cold flashes sore throat coughing and runny nose Finished amoxacillian on Thur, Was on Ibuprofen, muscle relaxer, Cough syrup with codiene. Fingers are cold and numb. seen in urgent care 2 weeks ago. Dry cough non productive no SOB having ear pain with coughing and swallowing. Meds:None allergies NKDA PMH: Healthy anemia CONCERN: Symptom have not improved. STAT SYMPTOMS: none per Adult Cold (VURI) CNG 1997. ASSESSMENT: Duration of sx: 1 month(s). Fever: no. Cough: non-productive, harsh. Respiratory problems: chest discomfort discomfort on right side. Sore throat: severe. Ear pain: yes; sevre pain. Symptoms are: worse. Complicating factors: none. PMH: healthy CURRENT MEDICATIONS: no. MEDICATION ALLERGIES: no. HOME TREATMENT: not discussed. PLAN:Pt wants to be seen at [facility] documented in this encounter Plan of Treatment Not on filedocumented as of this encounter Visit Diagnoses Not on filedocumented in this encounter Care Teams Extermination Supervisor Relationship Specialty Start Date End Date Keya Gay MD PCP - General 04/01/1998 04/04/[address] [place] [address] documented as of this encounter
--- OUTSIDE RECORDS SUMMARY | 2022-03-07 11:31 | XMS_ITS | Encounter Summary ---
:1970 Author Organization [employer] Address [address] [place] [address] Care Team Providers Name Role Phone Chirag Metzger PA-C Primary Care Provider Encounter Details Date Type Department Care Team Description 10/28/1998 Orders Only Princess Grover Social History Tobacco Use Types Packs/Day Years Used Date Smoking Tobacco: Never Assessed Sex Assigned at Date Recorded Not on file documented as of this encounter Plan of Treatment Not on filedocumented as of this encounter Visit Diagnoses Not on filedocumented in this encounter Care Teams License Distributor Relationship Specialty Start Date End Date Chirag Metzger PA-C PCP - General Physician Boiler Maker 07/06/[address] [place] [address] documented as of this encounter
--- OUTSIDE RECORDS SUMMARY | 2022-03-07 11:31 | XMS_ITS | Encounter Summary ---
:1970 Author Organization [employer] Address [address] [place] [address] Care Team Providers Name Role Phone Chirag Metzger PA-C Primary Care Provider Encounter Details Date Type Department Care Team Description 07/01/1999 Orders Only Keya Gay MD [address] [address] (Wo rk) Social History Tobacco Use Types Packs/Day Years Used Date Smoking Tobacco: Never Assessed Sex Assigned at Date Recorded Not on file documented as of this encounter Plan of Treatment Not on filedocumented as of this encounter Visit Diagnoses Not on filedocumented in this encounter Care Teams Clerical Transcriber Relationship Specialty Start Date End Date Chirag Metzger PA-C PCP - General Physician Yard Assistant 07/06/[address] [place] [address] documented as of this encounter
--- OUTSIDE RECORDS SUMMARY | 2022-03-07 11:31 | XMS_ITS | Encounter Summary ---
:1970 Author Organization [facility] Address [address] [place] [address] Care Team Providers Name Role Phone Keya Gay MD Primary Care Provider Reason for Visit Reason Comments Refill Encounter Details Date Type Department Care Team Description 03/12/1999 Telephone Careline Felecia Almendarez, RN Refill [address] [place], [place] [address] [phone] [place] [address] Social History Tobacco Use Types Packs/Day Years Used Date Smoking Tobacco: Never Assessed Sex Assigned at Date Recorded Not on file documented as of this encounter Nursing Notes 03/12/1999 11:59 PM CDT >> FELECIA ALMENDAREZ 03/12/1999 05:[address] Bower called back recommends: [email or web address] 1 po daily 3 month supply; to remind pt. to have yearly physical including pap smear Called prescription in to [facility] in [place]. Called back pt. who verbalized understanding of above. >> CALL RECEIVED. Contact: ,self >> FELECIA ALMENDAREZ 03/12/1999 05:03 pm Concern: ran out of control pills, needs a refill called in to [facility] [place]. Med's: [email or web address] 1 po daily Med Allergies: (none) Plan: will page physician prevocational/rehabilitation counselor documented in this encounter Plan of Treatment Not on filedocumented as of this encounter Visit Diagnoses Not on filedocumented in this encounter Care Teams Street And Building Decorator Relationship Specialty Start Date End Date Keya Gay MD PCP - General 04/01/1998 04/04/[address] [place] [address] documented as of this encounter
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
--- OUTSIDE RECORDS SUMMARY | 2022-03-07 11:31 | XMS_ITS | Encounter Summary ---
:1970 Author Organization [facility] Address [address] [place] [address] Care Team Providers Name Role Phone Keya Gay MD Primary Care Provider Encounter Details Date Type Department Care Team Description 08/24/1998 Orders Only Dai Luna AP RN, AIRCRAFT SYSTEMS TECHNICIAN [address] [place], [place] [address] (Wo rk) Social History Tobacco Use Types Packs/Day Years Used Date Smoking Tobacco: Never Assessed Sex Assigned at Date Recorded Not on file documented as of this encounter Plan of Treatment Not on filedocumented as of this encounter Procedures Procedure Name Priority Date/Time Associated Diagnosis Comme nts GC (N. Routine 08/24/1998 2:41 PM Results f or this GONORRHOEAE)(14 CDT procedure ar e in YEARS AND OLDER) the results section. CHLAMYDIA (13 YEARS Routine 08/24/1998 2:41 PM Re sults for this AND OLDER) CDT procedure are i n the results section. documented in this encounter Results GC (N. GONORRHOEAE) - 1 SWAB (08/24/1998 2:41 PM CDT) [facility] Method Time Signature GC (N. Negative [facility] gonorrhoeae) Source Cervix [facility] Specimen Anatomical Collection Method Collection Time Receive d Time (Source) Location / / Volume Laterality 08/24/1998 2:41 PM 9 2:42 CDT PM CDT Dai Luna [facility] LAB_1 Performing Organization Address City/[facility]/ZIP Code Phon e Number [facility] [phone] [phone] CHLAMYDIA - 1 SWAB (08/24/1998 2:41 PM CDT) [facility] Method Time Signature Chlamydia Negative NEG [facility] Test Performed by PCR Assay Source Cervix [facility] Specimen Anatomical Collection Method Collection Time Receive d Time (Source) Location / / Volume Laterality 08/24/1998 2:41 PM 9 2:42 CDT PM CDT Dai Luna [facility]1 Performing Organization Address [facility] Phon e Number [facility] [phone] [phone] documented in this encounter Visit Diagnoses Not on filedocumented in this encounter Care Teams Natural Sciences Manager Relationship Specialty Start Date End Date Keya Gay MD PCP - General 04/01/1998 04/04/[address] [place] [address] documented as of this encounter
--- OUTSIDE RECORDS SUMMARY | 2022-03-07 11:31 | XMS_ITS | Encounter Summary ---
:1970 Author Organization [employer] Address [address] [place] [address] Care Team Providers Name Role Phone Padmini Park PA-C Primary Care Provider Encounter Details Date Type Department Care Team Description 10/21/1999 Orders Only Sydney Dumont MD [address] [facility] [place] [phone] [place] [address] (Wo rk) Social History Tobacco Use Types Packs/Day Years Used Date Smoking Tobacco: Never Assessed Sex Assigned at Date Recorded Not on file documented as of this encounter Plan of Treatment Not on filedocumented as of this encounter Procedures Procedure Name Priority Date/Time Associated Diagnosis Comme nts PAP TEST, ROUTINE Routine 10/21/1999 5:22 PM Resu lts for this CDT procedure are i n the results section. documented in this encounter Results PAP SMEAR, ROUTINE (10/21/1999 5:22 PM CDT) [facility] Method Time Signature Pap Smear, See Separate Report [facility] Routine Performed at [facility] Specimen Anatomical Collection Method Collection Time Receive d Time (Source) Location / / Volume Laterality 10/21/1999 5:22 PM 0 5:23 CDT PM CDT Sydney Mcelroy MD LAB_1 Performing Organization Address City/State/ZIP Code Phon e Number [facility] [phone] [address] documented in this encounter Visit Diagnoses Not on filedocumented in this encounter Care Teams Microfiche Camera Operator Relationship Specialty Start Date End Date Padmini Park PA-C PCP - General Family Practice 04/05/12 01/19/16 documented as of this encounter
--- OUTSIDE RECORDS SUMMARY | 2022-03-07 11:31 | XMS_ITS | Encounter Summary ---
:1970 Author Organization [employer] Address [address] [place] [address] Care Team Providers Name Role Phone Chirag Metzger PA-C Primary Care Provider Encounter Details Date Type Department Care Team Description 08/22/1999 Orders Only Vanda, Luis Fernando montoya MD [address] [place] [address] [place] [address] (Wo rk) Social History Tobacco Use Types Packs/Day Years Used Date Smoking Tobacco: Never Assessed Sex Assigned at Date Recorded Not on file documented as of this encounter Plan of Treatment Not on filedocumented as of this encounter Visit Diagnoses Not on filedocumented in this encounter Care Teams Mail Technician Relationship Specialty Start Date End Date Chirag Metzger PA-C PCP - General Physician Spray Applicator 07/06/16 [address] [place] [address] documented as of this encounter
--- OUTSIDE RECORDS SUMMARY | 2022-03-07 11:31 | XMS_ITS | Encounter Summary ---
:1970 Author Organization [facility] Address [address] [place] [address] Care Team Providers Name Role Phone Keya Gay MD Primary Care Provider Encounter Details Date Type Department Care Team Description 06/10/1999 Orders Only Keya Gay MD [address] [place], [place] [address] (Wo rk) Social History Tobacco Use Types Packs/Day Years Used Date Smoking Tobacco: Never Assessed Sex Assigned at Date Recorded Not on file documented as of this encounter Plan of Treatment Not on filedocumented as of this encounter Procedures Procedure Name Priority Date/Time Associated Diagnosis Comme nts STREP GRP A, RAPID Waiting 06/10/1999 1:36 PM Res ults for this SCREEN CLOTH CLASSER procedure are i n the results section. documented in this encounter Results (ABNORMAL) RAPID, GPA STREP SCREEN (WAITI (06/10/1999 1:36 PM CLOTH CLASSER) [facility] Method Time Signature Patient Home None [employer] Phone # Patient Work None [employer] Phone # Grp A Rapid Positive (A) [facility] Screen Specimen Anatomical Collection Method Collection Time Receive d Time (Source) Location / / Volume Laterality 06/10/1999 1:36 PM 0 1:37 CLOTH CLASSER PM CLOTH CLASSER Keya Gay MD LAB_1 Performing Organization Address City/State/ZIP Code Phon e Number [facility] [phone] [facility] [address] [address] documented in this encounter Visit Diagnoses Not on filedocumented in this encounter Care Teams Mid Level Java Developer Relationship Specialty Start Date End Date Keya Gay MD PCP - General 04/01/1998 04/04/[address] [place] [address] documented as of this encounter
--- OUTSIDE RECORDS SUMMARY | 2022-03-07 11:31 | XMS_ITS | Encounter Summary ---
:1970 Author Organization [employer] Address [address] [place] [address] Care Team Providers Name Role Phone Keya Gay MD Primary Care Provider Reason for Visit Reason Comments PE AND PAP VIA INTERFACE Encounter Details Date Type Department Care Team Description 10/21/1999 Office Visit [facility] Sydney Mcelroy GYNEC OLOGIC EXAMINATION; Practice [facility] LABORATORY EXAMINATION [address] [phone] [id number] Social History Tobacco Use Types Packs/Day Years Used Date Smoking Tobacco: Never Assessed Sex Assigned at Date Recorded Not on file documented as of this encounter Progress Notes Sydney Mcelroy - 10/21/1999 12:00 AM CDTSUBJECTIVE: Patient is seen for physical examination and Pap smear. She tells me that her last Pap smear was in April 1997 and was within normal limits. She has no particular questions. Review of her previous medical history finds that she has had a , as well as a tubal ligation in 1991. She had an abnormal Pap that required colposcopy in the past, which revealed benign findings. She has 2 children, Soledad and Bhavna, who are presently doing well. Further previous medical history, family history and social history are reviewed. Please see the data base at the front of the chart for further information. OBJECTIVE: HEENT: TMs de los santos with normal markings. Sclerae and conjunctivae are clear, PERRLA, EOMI. Nares are patent. Oropharynx without erythema, edema or lesion. Neck is supple with full range of motion, there is no adenopathy. Chest is clear to auscultation bilaterally without rales or wheezes. Cardiac has a regular rate and rhythm, without murmur, rub or gallop. Breasts are symmetric in appearance, no discrete lumps or lesions, no adenopathy is appreciated in the axillary or clavicular area. Abdomen is soft, nondistended, nontender, bowel sounds are present; there is no hepatosplenomegaly. Genitourinary exam reveals a normal external perineum, vaginal vault is with scant discharge. Cervix is normal in appearance. A Pap smear is sent and is pending. Adnexa are benign. Musculoskeletal exam finds that she moves all extremities spontaneously. Neurologic exam is nonfocal. ASSESSMENT/PLAN: A 29-year-old woman in overall good health. We did discuss the use of Metabolife for weight loss and her ongoing use of Alesse. Patient will call the clinic if she has any other questions or concerns. cc: documented in this encounter Plan of Treatment Not on filedocumented as of this encounter Visit Diagnoses Diagnosis Gynecological examination Laboratory examination documented in this encounter Care Teams Pc Installation Engineer Relationship Specialty Start Date End Date Keya Gay MD PCP - General 04/01/1998 04/04/00 [address] [id number] documented as of this encounter
--- OUTSIDE RECORDS SUMMARY | 2022-03-07 11:31 | XMS_ITS | Encounter Summary ---
:1970 Author Organization [employer] Address [address] [place] [address] Care Team Providers Name Role Phone Keya Gay MD Primary Care Provider Reason for Visit Reason Comments SLEEP,INABILITY TO VIA INTERFACE Encounter Details Date Type Department Care Team Description 07/01/1999 Office Visit [facility] Keya Gay, ACU TE STRESS REACT NEC; Practice SLEEP DISTURBANCE NOS; [address] [facility] [address] COUNSELING, DIETARY [place], [place] [address] [id number] [phone] Social History Tobacco Use Types Packs/Day Years Used Date Smoking Tobacco: Never Assessed Sex Assigned at Date Recorded Not on file documented as of this encounter Progress Notes Keya Gay - 07/01/1999 12:00 AM CSTSUBJECTIVE: This is a 29 -year-old female whose original appointment is to tell me that she has difficulty sleeping. She had been on some Benadryl without relief. Tried some trazodone, again, not helping her. Tells me it would help her sleep at night maybe four hours. She would wake up and have headaches. She admits to having increased stress. Her job where she works is very busy. 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 She has not been able to set limits. Her recently has been having problems and has been incarcerated. She is working full-time, switching her hours to Sunday through 10 hour days a piece, having Fridays off. Has two children at home that she takes care of in the evenings then. She is frustrated with her weight, tells me it is concerning that she tries to exercise and doesn't eat much and still doesn't lose much weight. She feels achy all over. Denies depression, but does feel anxious about the trouble her is in and her job. She is on Metabolife, which she feels she needs to help with her diet. OBJECTIVE: Five feet 1 inch. Weight 149 lb., which puts her at about the 28 body mass index. Her blood pressure is 120/70. ASSESSMENT: Significant family stressors as well as weight issues and insomnia, maybe secondary to Metabolife as it does contain amphetamines. PLAN: Encouraged her to probably the stop the Metabolife and see if it will help improve her sleep. Will stop the trazodone. Placed her on some Xanax at 0.25 mg, 1/2 - 1 tablet p.o. q.h.s. as needed for insomnia. 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 As for her concerns with her , I feel that a professional help with counseling would be beneficial to her as well as her family as their lifestyle will be changing. She will follow-up with me in the next few days in regards to insomnia, see if the medication helps and I will set her up with [facility] in regards to the weight management issues since she cannot attend classes at this time. Hopefully with better instructions of what to eat and some regular activity we can maintain a healthier weight level for her. cc: documented in this encounter Plan of Treatment Not on filedocumented as of this encounter Visit Diagnoses Diagnosis Other acute reactions to stress (HRC) Other acute reactions to stress Sleep disturbance, unspecified Dietary surveillance and counseling documented in this encounter Care Teams Apprentice Technician Relationship Specialty Start Date End Date Keya Gay MD PCP - General 04/01/1998 04/04/[address] [place] [place] [address] documented as of this encounter
--- OUTSIDE RECORDS SUMMARY | 2022-03-07 11:31 | XMS_ITS | Encounter Summary ---
:1970 Author Organization [facility] Address [address] [place] [address] Care Team Providers Name Role Phone Keya Gay MD Primary Care Provider Reason for Visit Reason Comments Mental Health Concerns av adult 11 with daughter gucci Hernandez Encounter Details Date Type Department Care Team Description 05/30/1999 Telephone Careline Julianna Bowman Mental Health Concerns [address], POLITICAL SCIENCE RESEARCH ASSISTANT, LAP CUTTER TRUER OPERATOR (av adult 11 with [place], [place] [address] daughter ehsan); [phone] [place], [place] [address] Social History Tobacco Use Types Packs/Day Years Used Date Smoking Tobacco: Never Assessed Sex Assigned at Date Recorded Not on file documented as of this encounter Nursing Notes 05/30/1999 11:59 PM EXTRUSION BENDER >> CALL RECEIVED. Contact: mom >> JULIANNA BOWMAN 05/30/1999 05:27 pm under much stress, can't sleep, no thoughts of hurting self or others; sore corner of mouth, size of pencil eraser, sx x 2d, getting bigger, jimenes, documented in this encounter Plan of Treatment Not on filedocumented as of this encounter Visit Diagnoses Not on filedocumented in this encounter Care Teams It Security Consultant Relationship Specialty Start Date End Date Keya Gay MD PCP - General 04/01/1998 04/04/[address] [place] [address] documented as of this encounter
--- OUTSIDE RECORDS SUMMARY | 2022-03-07 11:31 | XMS_ITS | Encounter Summary ---
:1970 Author Organization [facility] Address [address] [place] [address] Care Team Providers Name Role Phone Keya Gay MD Primary Care Provider Reason for Visit Reason Comments Medication Request Encounter Details Date Type Department Care Team Description 11/19/1998 Telephone Careline Rona Arteaga Medication Request [address] SMahnaz Taylor RN [place], [place] [address] [facility] [phone] [place] [address] Social History Tobacco Use Types Packs/Day Years Used Date Smoking Tobacco: Never Assessed Sex Assigned at Date Recorded Not on file documented as of this encounter Nursing Notes 11/19/1998 11:59 PM CDT >> LILLI ARTEAGA 11/19/1998 10:05 pm another month's supply given but pharmancy stated need to override the old order in order for it to be covered. Pharmancy number [phone] for HP given to radha pharmicist to call tomorrow. Or pt can pay and bill HP when home. Attempted to contact pt . message left on VideoStep machine. >> CALL RECEIVED. Contact: >> LILLI ARTEAGA 11/19/1998 07:51 pm radha [phone] at [place] need an override to dispense OCP wants a 1mo supply had left Pills a 2 mo supply at home before travel. Is on OCP to decrease menses cramping. Would like to start this cycle. Plan: Dr Lenore ulrich. documented in this encounter Plan of Treatment Not on filedocumented as of this encounter Visit Diagnoses Not on filedocumented in this encounter Care Teams Laundry Press Operator Relationship Specialty Start Date End Date Keya Gay MD PCP - General 04/01/1998 04/04/00 [address] [place] [address] documented as of this encounter
--- OUTSIDE RECORDS SUMMARY | 2022-03-07 11:32 | XMS_ITS | Encounter Summary ---
:1970 Author Organization [employer] Address [address] [place] [address] Care Team Providers Name Role Phone Keya Gay MD Primary Care Provider Encounter Details Date Type Department Care Team Description 05/04/1997 Office Visit Marco Schaffer PREVENTIVE CARE EXAM; [facility] MENSTRUAL DISORDER NOS; [address] [facility] DERMATOPHYTOSIS SITE NOS [place], [address] Social History Tobacco Use Types Packs/Day Years Used Date Smoking Tobacco: Never Assessed Sex Assigned at Date Recorded Not on file documented as of this encounter Progress Notes Marco Schaffer - 05/04/1997 12:00 AM CSTS: RHM. LMP was approx. 12/5. She has been seeing Dr. Penny because of dysmenorrhea and heavy periods. Had a pelvic ultrasound but apparently was normal. She is scheduled to see Dr. Penny in 2 days for f/u. Put her on Naprosyn and that is helping with the dysmenorrhea. She does need a pap smear as this was not done at her pelvic exam a few weeks ago. She has had some dry itchy skin patches on both arms and under her breasts. She has tried HC cream without any relief. If she continually itches them they become a darker pigmented color. Last concern is that for the last 2 weeks when she swallows she feels as if there is a lump like phlegm in her throat but she is not able to cough it up. Is not having any trouble swallowing. There is no discomfort to it. Data base sheet was reviewed and updated. O: Height 5' 3/4. Weight 143 lbs. BP 122/56. Pulse 88. TM's are nonerythematous. Nares clear. Oropharynx is moist. There is no tonsillar enlargement or exudate. No PND. Neck is supple without adenopathy or thyromegaly. There are no areas of tenderness. Lungs are clear. Heart; regular rate and rhythm with normal S1, S2, no murmur or gallop. Breasts have no discrete masses but she does have rather diffuse fibrocystic changes. Abdomen is soft, nontender, no hepatosplenomegaly or masses. Back; no CVA tenderness. Extremities without edema. External genitalia, vagina and cervix are without lesions. Pap smear was done. Bimanual is deferred as she just recently had this done with Dr. Penny. Skin; on the right upper arm she has a few cm. scaly, slightly pigmented patch and similar one on the left arm and under the breasts. SILVIA was done on the right arm and it was positive. Hgb. is 11.8. A: Tinea corporis. Dysmenorrhea and menorrhagia that is being followed by Dr. Penyn. Sensation of phlegm in her throat with no abnormalities on exam today. Sxs. have not been present for very long. P: Since her hgb. is a little low and she is having very heavy periods will have her take one iron tablet once a day. F/u with Dr. Penny is scheduled. Treat the tinea with Lotrimin b.i.d. for 10-14 days. F/u if it is not resolving. If the throat sxs. do not resolve over the next 2 weeks she will f/u. cc: documented in this encounter Plan of Treatment Not on filedocumented as of this encounter Visit Diagnoses Diagnosis Routine general medical examination at [facility] facility Routine general medical examination at a [facility] care facility Unspecified disorder of menstruation and other abnormal bleeding from female genital tract Dermatophytosis of unspecified site documented in this encounter Care Teams Education Specialist Relationship Specialty Start Date End Date Keya Gay MD PCP - General 04/01/1998 04/04/[address] [place] [address] documented as of this encounter
--- OUTSIDE RECORDS SUMMARY | 2022-03-07 11:32 | XMS_ITS | Encounter Summary ---
:1970 Author Organization Counts include 234 beds at the [facility] Address [address] [place] [address] Care Team Providers Name Role Phone Keya Gay MD Primary Care Provider Encounter Details Date Type Department Care Team Description 07/10/1998 Orders Only Epic, [place] [address] Social History Tobacco Use Types Packs/Day Years Used Date Smoking Tobacco: Never Assessed Sex Assigned at Date Recorded Not on file documented as of this encounter Plan of Treatment Not on filedocumented as of this encounter Procedures Procedure Name Priority Date/Time Associated Diagnosis Comme nts STREP GRP A, RAPID Waiting 07/10/1998 10:22 AM Re sults for this SCREEN ASSISTANT SCIENTIST procedure are i n the results section. documented in this encounter Results (ABNORMAL) RAPID, GPA STREP SCREEN (WAITI (07/10/1998 10:22 AM ASSISTANT SCIENTIST) [facility] gist Method Time Signature Patient Home [id number] [employer] Phone # Patient Work None [employer] Phone # Grp A Rapid Positive (A) [employer] Screen Specimen Anatomical Collection Method Collection Time Receive d Time (Source) Location / / Volume Laterality 07/10/1998 10:22 07/10/1998 AM ASSISTANT SCIENTIST 10:23 AM ASSISTANT SCIENTIST Narrative [facility] - 07/10/1998 10:22 AM ASSISTANT SCIENTIST Ordered by URGENT CARE Internal Processing Epic LAB_1 Performing Organization Address City/State/ZIP Code Phon e Number [facility] [phone] [place] [id number] [address] [address] documented in this encounter Visit Diagnoses Not on filedocumented in this encounter Care Teams Stock Digger Relationship Specialty Start Date End Date Keya Gay MD PCP - General 04/01/1998 04/04/[address] [place] [address] documented as of this encounter
--- OUTSIDE RECORDS SUMMARY | 2022-03-07 11:32 | XMS_ITS | Encounter Summary ---
:1970 Author Organization [employer] Address [address] [place] [address] Care Team Providers Name Role Phone Keya Gay MD Primary Care Provider Encounter Details Date Type Department Care Team Description 08/12/1997 Office Visit Marco Schaffer MOTION SICKNESS; [facility] ANEMIA NOS [address] [place], [address] Social History Tobacco Use Types Packs/Day Years Used Date Smoking Tobacco: Never Assessed Sex Assigned at Date Recorded Not on file documented as of this encounter Progress Notes Marco Schaffer - 08/12/1997 12:00 AM CSTS: She is going to be going on a cruise to the [facility]. She has to fly from here to [place], and the only other time she has been on an airplane it was a short flight and she was very nervous and anxious. Requesting a tranquilizer. Also, has never been on a cruise ship and is worried about motion sickness and is requesting a scopolamine patch. O: Patient was not examined today. Hemoglobin was done as she had had a slightly low hemoglobin and has a history of menorrhagia. This was 10.9 down from 11.8 on 05/04/97. A: Travel with anxiety and possible motion sickness. Anemia that I think is secondary to her menorrhagia. P: Given a prescription for Xanax .25 mg 20-30 minutes before flying and she can repeat this x 1 with four pills dispensed. Scopolamine patch as directed. She needs to start some iron which she did not do at the previous visit. Although instructed to do so. After starting the iron, then her hemoglobin should be rechecked in a month or so and that is the same time she's do for follow up with Dr. Penny. cc: documented in this encounter Plan of Treatment Not on filedocumented as of this encounter Visit Diagnoses Diagnosis Motion sickness Anemia, unspecified documented in this encounter Care Teams Underwriting Service Representative Relationship Specialty Start Date End Date Keya Gay MD PCP - General 04/01/1998 04/04/[address] [place] [address] documented as of this encounter
--- OUTSIDE RECORDS SUMMARY | 2022-03-07 11:32 | XMS_ITS | Encounter Summary ---
:1970 Author Organization [employer] Address [address] [place] [address] Care Team Providers Name Role Phone Keya Gay MD Primary Care Provider Encounter Details Date Type Department Care Team Description 04/13/1997 Office Visit [facility] Justin Hilario MD FEM CARLYN GENITAL SYMPTOMS NEC; and Gynecology IRREGULAR MENSTRUATION [address] [place], [place] [address] Social History Tobacco Use Types Packs/Day Years Used Date Smoking Tobacco: Never Assessed Sex Assigned at Date Recorded Not on file documented as of this encounter Progress Notes Justin Hilario - 04/13/1997 12:00 AM CSTTAPE NO. [id number] REFERRING PROVIDER: Dr. Kb Penny, [facility] INDICATION FOR PELVIC ULTRASOUND: Abdominal and vaginal ultrasound examinations were performed. The uterus was in midline anteverted position, normal outline and texture. Cavity empty. The uterus was 6.9 cm long, 5.8 cm anteroposteriorly, 6.3 cm in its width. Endometrium 18 mm between myometrium to myometrium on a sagittal section. With an LMP of 03/25/97, this is in the normal range. A small amount of free fluid noted in the pelvic cavity in the area of the right adnexa. This area measured 3.7 x 1.5 cm. The ovary on this right side 3.2 x 2.9 cm on longitudinal section. Ovary on the left side 2.9 x 2.1 cm. A: 1. Normal looking uterus with a rather thickened endometrium but that could be normal for an LMP of about 19 days earlier. 2. A small amount of free fluid in the pelvic cavity. The origin or nature of this is difficult to determine. It could be from a ruptured cyst. 3. The ovaries appear normal. P: The patient is being referred back to Dr. Kb Penny at [facility] for further management. cc: Kb Penny MD S CONSOLE OPERATOR TRACK documented in this encounter Plan of Treatment Not on filedocumented as of this encounter Visit Diagnoses Diagnosis Other specified symptom associated with female genital organs Irregular menstrual cycle documented in this encounter Care Teams Blood Bank Worker Relationship Specialty Start Date End Date Keya Gay MD PCP - General 04/01/1998 04/04/[address] [place] [address] documented as of this encounter
--- OUTSIDE RECORDS SUMMARY | 2022-03-07 11:32 | XMS_ITS | Encounter Summary ---
:1970 Author Organization [employer] Address [address] [place] [address] Care Team Providers Name Role Phone Keya Gay MD Primary Care Provider Encounter Details Date Type Department Care Team Description 07/15/1998 Office Visit [facility] Nilam Keane, KARLOSI TY; Practice RDN, LD COUNSELING, DIETARY [address] [phone] [facility] Social History Tobacco Use Types Packs/Day Years Used Date Smoking Tobacco: Never Assessed Sex Assigned at Date Recorded Not on file documented as of this encounter Progress Notes Nilam Keane, RD, LD - 07/15/1998 12:00 AM CSTREFERRING PHYSICIAN: Dr. Keya Bower. REFERRING PROBLEM: Weight management. S: 28-year-old female who would like to lose some weight. She reports she has not been able to lose weight after her second child was born. Height: 5 feet, 1 inch. Weight : About 150 pounds, BMI 28. In the past she has participated in [facility] Willard and Weight Watcher's but was not happy with these programs. She would like to have guidance on a healthy diet and the reasons behind this. She is confused on the different types of diets out there, wondering if she should eat high protein low carbohydrate or high carbohydrate low protein. She has been averaging exercise of kick boxing three times per week. Written information given and reviewed include; 1500 calorie food guide pyramid, learn to lower your fat choices for a lifetime, a brochure on iron since she reports having low iron level, weight mangement resources, meal planning worksheet, food and activity log, and the phone number to the [facility] phone line. A/P: In reviewing Keara's three day food diary, it looks like some of her food choices are fairly high in fat. She reports that she fries most all of her food. She also eats one to three candy bars and chips daily. I reviewed the food guide pyramid with her and encouraged her to keep food record and compare this to the food guide pyramid. Goals established today include : 1) To consume at least 5 servings of fruits and vegetables per day. 2) To switch to 1% milk since she is currently using 2% milk. 3) To try to decrease her intake of chips, candy, and soda pop. I told Keara about the Balanced Ways program offered at [facility] and she is willing to register for this. Encouraged her to follow up with the [facility] phone line rod bending machine operator and health educators And to get more information on low fat cooking from our [facility] library. Keara seemed to have a good understanding and appreciate the information covered today. cc: MD Nilam Hermosillo. SANJIV Keane,LD,CNSD HALMIC AIDE documented in this encounter Plan of Treatment Not on filedocumented as of this encounter Visit Diagnoses Diagnosis Obesity Overweight and obesity Dietary surveillance and counseling documented in this encounter Care Teams Centrifugal Chiller Technician Relationship Specialty Start Date End Date Keya Gay MD PCP - General 04/01/1998 04/04/[address] [place] [address] documented as of this encounter
--- OUTSIDE RECORDS SUMMARY | 2022-03-07 11:32 | XMS_ITS | Encounter Summary ---
:1970 Author Organization [employer] Address [address] [place] [address] Care Team Providers Name Role Phone Chirag Metzger PA-C Primary Care Provider Encounter Details Date Type Department Care Team Description 08/12/1997 Orders Only Marco Schaffer [facility] [place] [address] [facility], [address] Social History Tobacco Use Types Packs/Day Years Used Date Smoking Tobacco: Never Assessed Sex Assigned at Date Recorded Not on file documented as of this encounter Plan of Treatment Not on filedocumented as of this encounter Visit Diagnoses Not on filedocumented in this encounter Care Teams Metal Coater Relationship Specialty Start Date End Date Chirag Metzger PA-C PCP - General Physician Maple Sugar Maker 07/06/16 [address] [place] [address] documented as of this encounter
--- OUTSIDE RECORDS SUMMARY | 2022-03-07 11:32 | XMS_ITS | Encounter Summary ---
:1970 Author Organization [facility] Address [address] [place] [address] Care Team Providers Name Role Phone Keya Gay MD Primary Care Provider Reason for Visit Reason Comments ARIADNE BENJAMIN MD FEVER Encounter Details Date Type Department Care Team Description 07/10/1998 Telephone Careline Brittney Eldridge SORE THROAT, MD; FEVER [address] [place], [place] [address] [facility] [phone] [facility] [address] Social History Tobacco Use Types Packs/Day Years Used Date Smoking Tobacco: Never Assessed Sex Assigned at Date Recorded Not on file documented as of this encounter Nursing Notes 07/10/1998 11:59 PM ADVERTISING REPRESENTATIVE >> CALL RECEIVED. Contact: self #[phone] >> BRITTNEY ELDRIDGE 07/10/1998 07:13 am 28 y/o fem calling with a red throat and s.t. and feels her chest is getting more sore. She feels 'hot' but did not ck the temp. She has a non productive cough, but does feel a little short of breath. MEDS: on ly multivits. She is not taking any cough med. She want to be seen. TO [facility] Sat 2-20 Quick Note by: CLARISA GUTIERREZ on 07/10/98 at 7:22 am. lm message on machine to cb documented in this encounter Plan of Treatment Not on filedocumented as of this encounter Visit Diagnoses Not on filedocumented in this encounter Care Teams Lock Installer Relationship Specialty Start Date End Date Keya Gay MD PCP - General 04/01/1998 04/04/[address] [place] [address] documented as of this encounter
--- OUTSIDE RECORDS SUMMARY | 2022-03-07 11:32 | XMS_ITS | Encounter Summary ---
:1970 Author Organization [employer] Address [address] [place] [address] Care Team Providers Name Role Phone Chirag Metzger PA-C Primary Care Provider Encounter Details Date Type Department Care Team Description 05/25/1997 Orders Only Hung Burrows Social History Tobacco Use Types Packs/Day Years Used Date Smoking Tobacco: Never Assessed Sex Assigned at Date Recorded Not on file documented as of this encounter Plan of Treatment Not on filedocumented as of this encounter Visit Diagnoses Not on filedocumented in this encounter Care Teams Cloth Inspector Relationship Specialty Start Date End Date Chirag Metzger PA-C PCP - General Physician Labor Relations Specialist 07/06/16 [address] [place] [address] documented as of this encounter
--- OUTSIDE RECORDS SUMMARY | 2022-03-07 11:32 | XMS_ITS | Encounter Summary ---
:1970 Author Organization [employer] Address [address] [place] [address] Care Team Providers Name Role Phone Chirag Metzger PA-C Primary Care Provider Encounter Details Date Type Department Care Team Description 11/05/1997 Orders Only Marco Schaffer [facility] [address] [facility], [address] Social History Tobacco Use Types Packs/Day Years Used Date Smoking Tobacco: Never Assessed Sex Assigned at Date Recorded Not on file documented as of this encounter Plan of Treatment Not on filedocumented as of this encounter Visit Diagnoses Not on filedocumented in this encounter Care Teams Medical Records Technician Relationship Specialty Start Date End Date Chirag Metzger PA-C PCP - General Physician Boilermaker Industrial Boilers 07/06/16 [address] [place] [address] documented as of this encounter
--- OUTSIDE RECORDS SUMMARY | 2022-03-07 11:32 | XMS_ITS | Encounter Summary ---
:1970 Author Organization [employer] Address [address] [place] [address] Care Team Providers Name Role Phone Chirag Metzger PA-C Primary Care Provider Encounter Details Date Type Department Care Team Description 03/25/1997 Orders Only Carlos Penny MD [facility] [address] [facility], [address] Social History Tobacco Use Types Packs/Day Years Used Date Smoking Tobacco: Never Assessed Sex Assigned at Date Recorded Not on file documented as of this encounter Plan of Treatment Not on filedocumented as of this encounter Visit Diagnoses Not on filedocumented in this encounter Care Teams Senior Net Developer Architect Relationship Specialty Start Date End Date Chirag Metzger PA-C PCP - General Physician Obstetrics Gynecology Md 07/06/16 [address] [place] [address] documented as of this encounter
--- OUTSIDE RECORDS SUMMARY | 2022-03-07 11:32 | XMS_ITS | Encounter Summary ---
:1970 Author Organization [facility] Address [address] [place] [address] Care Team Providers Name Role Phone Sarbjit Marco Primary Care Provider Encounter Details Date Type Department Care Team Description 02/19/1998 Orders Only Keya Gay MD [address] [place], [place] [address] (Wo rk) Social History Tobacco Use Types Packs/Day Years Used Date Smoking Tobacco: Never Assessed Sex Assigned at Date Recorded Not on file documented as of this encounter Plan of Treatment Not on filedocumented as of this encounter Procedures Procedure Name Priority Date/Time Associated Diagnosis Comme nts ACCUCHECK GLU Waiting 02/19/1998 2:26 PM Results for this RANDOM <8HR FAST CDT procedure a re in (WAITING) the results section. CHOLESTEROL, TOTAL Routine 02/19/1998 2:26 PM Res ults for this AND HDL CDT procedure are i n the results section. CBC HEME PANEL Routine 02/19/1998 2:26 PM Results for this CDT procedure are i n the results section. documented in this encounter Results CHOLESTEROL, TOTAL AND HDL (02/19/1998 2:26 PM CDT) P athologist Signature Cholesterol 163 <200 mg/dl [facility] HDL 52 >35 mg/dl [facility] Specimen Anatomical Collection Method Collection Time Receive d Time (Source) Location / / Volume Laterality 02/19/1998 2:26 PM 8 2:27 CDT PM CDT Keya Gay MD LAB_1 Performing Organization Address City/[facility]/ZIP Code Phon e Number [facility] [employer] [phone] [facility] [address] [phone] (ABNORMAL) CBC HEME PANEL (02/19/1998 2:26 PM CDT) P athologist Signature WBC 6.7 4.2 - 10.0 [facility] k/ul RBC 4.01 3.8 - 5.4 [facility] M/ul Hemoglobin 11.8 (L) 12 - 16 [facility] g/dl HCT 36.5 35 - 46 % [facility] MCV 91 80 - 98 fl [facility] MCH 29.4 27 - 34 pg [facility] MCHC 32.3 32 - 36 % [facility] Platelets 254 150 - 450 [facility] k/ul Specimen Anatomical Collection Method Collection Time Receive d Time (Source) Location / / Volume Laterality 02/19/1998 2:26 PM 8 2:27 CDT PM CDT Keya Gay MD LAB_1 Performing Organization Address City/[facility]/ZIP Code Phon e Number [employer] [phone] [phone] ACCUCHECK GLUCOSE RANDOM (WAIT (02/19/1998 2:26 PM CDT) Component Value Ref Test Analysis Performed At [facility] gist Range Method Time Signature Glucose, bG 79 70 - 140 [facility] Strip mg/dl Glucose, bG Semi-quantitative result (bG) may be [facility] Strip 5-10% lower than quantitative result. Hours Fasting 2 hours [facility] Specimen Anatomical Collection Method Collection Time Receive d Time (Source) Location / / Volume Laterality 02/19/1998 2:26 PM 8 2:27 CDT PM CDT Keya Gay MD LAB_1 Performing Organization Address City/[facility]/ZIP Code Phon e Number [facility] [employer] [phone] [address] documented in this encounter Visit Diagnoses Not on filedocumented in this encounter Care Teams Network Systems Consultant Relationship Specialty Start Date End Date Marco Schaffer PCP - General 09/06/1993 03/31/1998 [facility] [address] [facility], [id number] documented as of this encounter
--- OUTSIDE RECORDS SUMMARY | 2022-03-07 11:32 | XMS_ITS | Encounter Summary ---
:1970 Author Organization [employer] Address [address] [place] [address] Care Team Providers Name Role Phone Keya Gay MD Primary Care Provider Encounter Details Date Type Department Care Team Description 05/27/1997 Office Visit Carlos Penny [facility] [id number] [place] [address], [address] Social History Tobacco Use Types Packs/Day Years Used Date Smoking Tobacco: Never Assessed Sex Assigned at Date Recorded Not on file documented as of this encounter Plan of Treatment Not on filedocumented as of this encounter Visit Diagnoses Diagnosis Dysmenorrhea documented in this encounter Care Teams Poster Relationship Specialty Start Date End Date Keya Gay MD PCP - General 04/01/1998 04/04/[address] [place] [address] documented as of this encounter
--- OUTSIDE RECORDS SUMMARY | 2022-03-07 11:32 | XMS_ITS | Encounter Summary ---
:1970 Author Organization [employer] Address [address] [place] [address] Care Team Providers Name Role Phone Keya Gay MD Primary Care Provider Encounter Details Date Type Department Care Team Description 07/10/1998 Office Visit [facility] Daiana Salazar MD STREP SORE THROAT [place] [address] [place] [address] [place], [place] [address] Social History Tobacco Use Types Packs/Day Years Used Date Smoking Tobacco: Never Assessed Sex Assigned at Date Recorded Not on file documented as of this encounter Progress Notes David Alejo - 07/10/1998 12:00 AM CSTS: The patient is a 28-year-old woman who reports with sore throat symptoms and muscle strain in her back over the past two to three weeks. She claims that her daughter had strep just a couple of weeks ago. She complains that she has had intermittent chills and fever. She has used [id number] NyQuil, with some relief of her symptoms. Past medical history is otherwise noncontributory. Current medications include Thermalift dietary supplement and NyQuil. No known drug allergies. O: Temperature 98.8, blood pressure 110/70, heart rate 96, respirations 12. HEENT: Nasal passages and tympanic membranes are clear. Posterior pharynx shows marked swelling and erythema with exudate of bilateral tonsils. Neck: Supple with bilateral tender anterior cervical lymphadenopathy. Chest: Clear. Cardiovascular: Regular rate and rhythm without murmur. Rapid strep test is positive. A: Streptococcal tonsillitis/pharyngitis. P: Amoxicillin 500 mg t.i.d. x 10 days. Ibuprofen 800 mg t.i.d. after meals around the clock as an anti-inflammatory for her back pain in conjunction with Flexeril 10 mg p.o. t.i.d. p.r.n. For her cough I prescribed for her Robitussin with codeine 1-2 teaspoons p.o. q.4-6h. p.r.n., 120 cc prescribed with no refills. If her symptoms persist beyond 7-10 days of medical therapy, she should return to clinic for re-evaluation. cc: documented in this encounter Plan of Treatment Not on filedocumented as of this encounter Visit Diagnoses Diagnosis Streptococcal sore throat documented in this encounter Care Teams Machine Ii Coremaker Relationship Specialty Start Date End Date Keya Gay MD PCP - General 04/01/1998 04/04/[address] [place] [address] documented as of this encounter
--- OUTSIDE RECORDS SUMMARY | 2022-03-07 11:32 | XMS_ITS | Encounter Summary ---
:1970 Author Organization [employer] Address [address] [place] [address] Care Team Providers Name Role Phone Chirag Metzger PA-C Primary Care Provider Encounter Details Date Type Department Care Team Description 04/20/1997 Orders Only Morenita Fink MD [address] [place], [place] [address] (Wo rk) Social History Tobacco Use Types Packs/Day Years Used Date Smoking Tobacco: Never Assessed Sex Assigned at Date Recorded Not on file documented as of this encounter Plan of Treatment Not on filedocumented as of this encounter Visit Diagnoses Not on filedocumented in this encounter Care Teams Science Teacher Relationship Specialty Start Date End Date Chirag Metzger PA-C PCP - General Physician Sanipractic Physician 07/06/16 [address] [place] [address] documented as of this encounter
--- OUTSIDE RECORDS SUMMARY | 2022-03-07 11:32 | XMS_ITS | Encounter Summary ---
:1970 Author Organization [employer] Address [address] [place] [address] Care Team Providers Name Role Phone Keya Gay MD Primary Care Provider Encounter Details Date Type Department Care Team Description 02/19/1998 Office Visit [facility] Chantell Gay MD [facility] [address] [facility] [address] [place] [address] [place] [address] [place], [place] [address] [phone] Social History Tobacco Use Types Packs/Day Years Used Date Smoking Tobacco: Never Assessed Sex Assigned at Date Recorded Not on file documented as of this encounter Progress Notes Keya Gay - 02/19/1998 12:00 AM CDTS: [age] year old complains of fatigue, chronic back pain, tailbone pain, upset about her weight, frustration that may lead to depression. She's just not happy with the way things are. She also has irregular periods. She just wishes she could learn to eat right. Her most pressing concern is her diet plan. She feels that it's hard for her to understand what people mean by watching her fat intake. She feels that if she could lose some weight, that she would start feeling better in all other aspects of her life. She didn't decide on a primary care physician at this time. She denies any significant medical problems of diabetes, thyroid disorder; has a history of anemia with . O: Alert and cooperative. Blood pressure 120/70. Height 5 feet 1 inch, weight approximately 150 pounds. Neck was supple, no obvious lymphadenopathy or thyromegaly. Heart regular rate and rhythm. Lungs were clear. Abdomen is soft, nontender. Skin mostly benign. A: Weight management. P: I advised that she start the Balanced Weights class every Sunday. Will have her contact the phone service to help learning about reading labels. Encouraged her to try to concentrate just on learning how to eat healthier foods. Food preparation information was given. I advised her that any changes like this could take three months to get started. After she seems more stabilized on food choices, would implement an exercise plan, and hopefully would see better results regarding her fatigue as well as the depressive symptoms. She's willing to follow up with me on a monthly basis. We'll do that at that time. Otherwise continue on Naprosyn p.r.n. for back pains. Labs were sent out. cc: documented in this encounter Plan of Treatment Not on filedocumented as of this encounter Visit Diagnoses Diagnosis Obesity, unspecified ([facility]) Obesity, unspecified documented in this encounter Care Teams Asp Developer Relationship Specialty Start Date End Date Keya Gay MD PCP - General 04/01/1998 04/04/[address] [place] [place] [address] documented as of this encounter
--- OUTSIDE RECORDS SUMMARY | 2022-03-07 11:32 | XMS_ITS | Encounter Summary ---
:1970 Author Organization [facility] Address [address] [place] [address] Care Team Providers Name Role Phone Marco Schaffer Primary Care Provider Encounter Details Date Type Department Care Team Description 08/12/1997 Notes/Orders Marco Schaffer [facility] [address] [facility], [address] Social History Tobacco Use Types Packs/Day Years Used Date Smoking Tobacco: Never Assessed Sex Assigned at Date Recorded Not on file documented as of this encounter Plan of Treatment Not on filedocumented as of this encounter Procedures Procedure Name Priority Date/Time Associated Diagnosis Comme nts CBC HEME PANEL Waiting 08/12/1997 4:16 PM Results for this RELAY TESTER HELPER procedure are i n the results section . documented in this encounter Results (ABNORMAL) CBC HEME PANEL (08/12/1997 4:16 PM RELAY TESTER HELPER) P athologist Signature WBC 7.1 4.2 - 10.0 [facility] k/ul RBC 3.71 (L) 3.8 - 5.4 [facility] M/ul Hemoglobin 10.9 (L) 12 - 16 [facility] g/dl HCT 33.7 (L) 35 - 46 % [facility] MCV 91 80 - 98 fl [facility] MCH 29.4 27 - 34 pg [facility] MCHC 32.3 32 - 36 % [facility] Platelets 276 150 - 450 [facility] k/ul Specimen Anatomical Collection Method Collection Time Receive d Time (Source) Location / / Volume Laterality 08/12/1997 4:16 PM 8 4:17 RELAY TESTER HELPER PM RELAY TESTER HELPER Marco Schaffer LAB_1 Performing Organization Address City/State/ZIP Code Phon e Number [facility] [phone] [facility] [address] [phone] documented in this encounter Visit Diagnoses Not on filedocumented in this encounter Care Teams Escrow Assistant Relationship Specialty Start Date End Date Marco Schaffer PCP - General 09/06/1993 03/31/1998 [facility] [address] [facility], [address] documented as of this encounter
--- OUTSIDE RECORDS SUMMARY | 2022-03-07 11:32 | XMS_ITS | Encounter Summary ---
:1970 Author Organization [facility] Address [address] [place] [address] Care Team Providers Name Role Phone Chirag Metzger PA-C Primary Care Provider Encounter Details Date Type Department Care Team Description 05/18/1997 Orders Only Isrrael Arias MD [address] [place], [place] [address] (Wo rk) Social History Tobacco Use Types Packs/Day Years Used Date Smoking Tobacco: Never Assessed Sex Assigned at Date Recorded Not on file documented as of this encounter Plan of Treatment Not on filedocumented as of this encounter Visit Diagnoses Not on filedocumented in this encounter Care Teams Nonprofit Director Relationship Specialty Start Date End Date Chirag Metzger PA-C PCP - General Physician Contact Lens Manufacturer 07/06/16 [address] [place] [address] documented as of this encounter
--- OUTSIDE RECORDS SUMMARY | 2022-03-07 11:32 | XMS_ITS | Encounter Summary ---
:1970 Author Organization [facility] Address [address] [place] [address] Care Team Providers Name Role Phone Keya Gay MD Primary Care Provider Encounter Details Date Type Department Care Team Description 06/29/1998 Orders Only Keya Gay MD [address] [place], [place] [address] (Wo rk) Social History Tobacco Use Types Packs/Day Years Used Date Smoking Tobacco: Never Assessed Sex Assigned at Date Recorded Not on file documented as of this encounter Plan of Treatment Not on filedocumented as of this encounter Procedures Procedure Name Priority Date/Time Associated Diagnosis Comme nts HEMOGLOBIN, BLOOD Routine 06/29/1998 10:26 AM Res ults for this EXTRACTOR OPERATOR HELPER procedure are i n the results section. TSH, SENSITIVE Routine 06/29/1998 10:26 AM Result s for this (WITH REFLEX) EXTRACTOR OPERATOR HELPER procedure are in the results section. documented in this encounter Results TSH, SENSITIVE (06/29/1998 10:26 AM EXTRACTOR OPERATOR HELPER) P athologist Signature TSH 0.97 0.30 - 5.00 [facility] uIU/ml Thyroid Meds No [facility] Specimen Anatomical Collection Method Collection Time Receive d Time (Source) Location / / Volume Laterality 06/29/1998 10:26 06/29/1998 AM EXTRACTOR OPERATOR HELPER 10:27 AM EXTRACTOR OPERATOR HELPER Keya Gay MD LAB_1 Performing Organization Address City/[facility]/ZIP Code Phon e Number [facility] [phone] [address] (ABNORMAL) HEMOGLOBIN, BLOOD (06/29/1998 10:26 AM EXTRACTOR OPERATOR HELPER) P athologist Signature Hemoglobin 11.2 (L) 12.0 - [facility] 16.0 g/dl Specimen Anatomical Collection Method Collection Time Receive d Time (Source) Location / / Volume Laterality 06/29/1998 10:26 06/29/1998 AM EXTRACTOR OPERATOR HELPER 10:27 AM EXTRACTOR OPERATOR HELPER Keya Gay MD LAB_1 Performing Organization Address [facility] Code Phon e Number [facility] [phone] [phone] documented in this encounter Visit Diagnoses Not on filedocumented in this encounter Care Teams Electronic Gaming Device Supervisor Relationship Specialty Start Date End Date Keya Gay MD PCP - General 04/01/1998 04/04/[address] [place] [address] documented as of this encounter
--- OUTSIDE RECORDS SUMMARY | 2022-03-07 11:32 | XMS_ITS | Encounter Summary ---
:1970 Author Organization [employer] Address [address] [place] [address] Care Team Providers Name Role Phone Keya Gay MD Primary Care Provider Encounter Details Date Type Department Care Team Description 11/05/1997 Office Visit Urgent Care Griselda Monteiro ABDOMINAL [place] [facility]STR[address] [address] [place] [address] [facility] [address] [address] [place], [address] Social History Tobacco Use Types Packs/Day Years Used Date Smoking Tobacco: Never Assessed Sex Assigned at Date Recorded Not on file documented as of this encounter Progress Notes Marco Schaffer - 11/05/1997 12:00 AM CDTS: Keara Cuellar has been on Naprosyn since 11/01/97 for menstrual cramps. She has also started a Bioslim (sp?) weight loss program where she takes several tablets before each meal. Since 11/02/97, she has had epigastric crampy-like pain, especially after she eats. She has some nausea but no vomiting. Has been under increased stress recently. Her and her were for four to five months and are now trying to reconcile. She has also just started a new job. She has great concerns about not being able to lose weight. With the increased stress, she tends to eat more. Is doing some walking and biking. O: Patient in no distress. BP 114/58. Pulse of 72. She is afebrile. Lungs are clear. Abdomen is soft and nontender. She has normal bowel sounds. There is no hepatosplenomegaly or masses. A: Epigastric pain that I think is probably brought on by the Naprosyn and/or the Bioslim product. Increased stress lately. P: She is to stop the Naprosyn and the Bioslim. Tagamet 800 mg b.i.d. for up to two weeks. If the pain does not resolve, she will follow up. Gave her the information on resources available through [facility] for weight management. Encouraged the exercising. She will call mental health to look into any marriage counseling services that are available. cc: documented in this encounter Plan of Treatment Not on filedocumented as of this encounter Visit Diagnoses Diagnosis Abdominal pain, epigastric documented in this encounter Care Teams Career Center Advisor Relationship Specialty Start Date End Date Keya Gay MD PCP - General 04/01/1998 04/04/00 [address] [address] documented as of this encounter
--- OUTSIDE RECORDS SUMMARY | 2022-03-07 11:32 | XMS_ITS | Encounter Summary ---
:1970 Author Organization [employer] Address [address] [place] [address] Care Team Providers Name Role Phone Keya Gay MD Primary Care Provider Encounter Details Date Type Department Care Team Description 06/29/1998 Office Visit [facility] Keya Gay OBE SITY NOS; Practice MD KEE NORM PHYSIOL DEVEL [address] [facility] [address] [place], [place] [id number] [phone] Social History Tobacco Use Types Packs/Day Years Used Date Smoking Tobacco: Never Assessed Sex Assigned at Date Recorded Not on file documented as of this encounter Progress Notes Keya Gay - 06/29/1998 12:00 AM CSTS: It is noted that a progress note has been missing from her chart for February 19, 1998. She came to see me in regards to fatigue, back pain, tail bone pain, concerns about weight gain, diet concerns, and irregular menstrual periods. O: Her objective findings include being 5 feet 1 inches, 150 pounds, blood pressure 120/70. A: Multiple concerns, including weight. P: I actually do not recall any more of this visit. cc: Keya Gay - 06/29/1998 12:00 AM CSTS: A 28 year old concerned about weight. Has been trying to lose some weight, but feels that she is at a plateau always staying at about 150 pounds over the last couple of years, especially after she had her two babies. She admits that she gained about 8 pounds the first and more during the second, but has not been able to lose weight. She has gone to various weight loss clinics. They tell her about low-fat foods and diet choices, but she just does not quite understand how much is the food, and how of what, and how to read labels. Therefore, finds that the food choices part is too difficult. She just started doing Tae Mitch exercising at home for the last 10 days and has enjoyed it. Feels that her muscles are toning, but she has not really felt that she has lost weight. She had been seen in February of 1998, however I do not see a note from. Though, I do have a nurse note that she was seen and had labs drawn. She does complain of some fatigue and back pain. It hurts when she bends over to tie her shoes. O: Alert and cooperative. Height 5 feet 1 inch. Weight 153 pounds. Body mass index 29. Blood pressure 112/54. Pulse 76 and regular. No thyromegaly. Heart regular rate and rhythm. Lungs were clear. Extremities show no edema. A: Overweight at 29 body mass index. P: Encouraged her that she is doing the right thing with good eating habits and exercising. Continue doing this for the rest of her life. I have encouraged her to attend the balanced weight classes as well as [facility] phone line services. She will meet with a hydrographical technical officer in our clinic one-on-one. I will follow up with her on a monthly basis to make sure that she can keep motivated and attendance to these programs if they are helpful. She seems to well motivated and is looking forward to these classes and information. cc: documented in this encounter Plan of Treatment Not on filedocumented as of this encounter Visit Diagnoses Diagnosis Obesity, unspecified (HRC) Obesity, unspecified Lack of expected normal physiological de velopment in childhood documented in this encounter Care Teams Informatics Coordinator Relationship Specialty Start Date End Date Keya Gay MD PCP - General 04/01/1998 04/04/[address] [place] [address] documented as of this encounter
--- OUTSIDE RECORDS SUMMARY | 2022-03-07 11:32 | XMS_ITS | Encounter Summary ---
:1970 Author Organization [employer] Address [address] [place] [address] Care Team Providers Name Role Phone Keya Gay MD Primary Care Provider Encounter Details Date Type Department Care Team Description 04/21/1997 Office Visit Ivania Younger [facility] [address] [employer] [facility]. , [address] Social History Tobacco Use Types Packs/Day Years Used Date Smoking Tobacco: Never Assessed Sex Assigned at Date Recorded Not on file documented as of this encounter Progress Notes Ivania Younger - 04/21/1997 12:00 AM CSTDATA: Keara states she was able to sleep a little bit better although she felt she was waking up due to not having a clock in the room. Was concerned about picking up her kids. Pt. was tearful at times during the appt. especially when discussing how she felt her 's attitude was unfair. ASSESSMENT: It appears as though pt. is grieving the break-up of a marriage. She is not clear as to why her has decided to leave. She is under the impression that he is talking to someone also, though she is not clear as to whether he is having an affair. Pt. has been for 8 years and would like to try to resolve any conflicts that she and her may have. From the pt.'s point of view it sounds as though her is not interested in resolving any dispute. Pt. does appear to be hanging on to what she thought would be a commitment lifelong. Pt. also appears to feel frustrated, angry, devastated, and concerned about her future. She is presently unemployed and although she does have supportive family and friends through the yarsanism, she does need to plan out future for herself. PLAN: Pt. is interested in attempting a couples assessment. Agreed with this as long as obviously pt.'s is agreeable to an assessment. It was recommended pt. join support group in the community, check into a woman's group for further support. cc: Paul Villagomez, Layla,LP Ivania Younger, MS, CCDCR documented in this encounter Plan of Treatment Not on filedocumented as of this encounter Visit Diagnoses Not on filedocumented in this encounter Care Teams Domestic Maid Relationship Specialty Start Date End Date Keya Gay MD PCP - General 04/01/1998 04/04/00 [address] [place] [address] documented as of this encounter
--- OUTSIDE RECORDS SUMMARY | 2022-03-07 11:33 | XMS_ITS | Encounter Summary ---
:1970 Author Organization [facility] Address [address] [place] [address] Care Team Providers Name Role Phone Oliviadorcas Marco Primary Care Provider Encounter Details Date Type Department Care Team Description 03/04/1997 Notes/Orders Epic, [place] [address] Social History Tobacco Use Types Packs/Day Years Used Date Smoking Tobacco: Never Assessed Sex Assigned at Date Recorded Not on file documented as of this encounter Plan of Treatment Not on filedocumented as of this encounter Procedures Procedure Name Priority Date/Time Associated Diagnosis Comme nts STREP GRP A, RAPID Waiting 03/04/1997 6:56 PM Res ults for this SCREEN CDT procedure are i n the results section. documented in this encounter Results RAPID, GPA STREP SCREEN (WAITING) (03/04/1997 6:56 PM CDT) [facility] gist Method Time Signature Patient Home [id number] [place] Phone # Patient Work None [facility] Phone # Grp A Rapid Negative [facility] Screen Grp A Culture Negative [facility] Final Specimen Anatomical Collection Method Collection Time Receive d Time (Source) Location / / Volume Laterality 03/04/1997 6:56 PM 7 6:57 CDT PM CDT Narrative [facility] - 03/04/1997 6:56 PM CDT Ordered by URGENT CARE Internal Processing Epic LAB_1 Performing Organization Address City/State/ZIP Code Phon e Number [facility] [phone] [facility] [address] [id number] documented in this encounter Visit Diagnoses Not on filedocumented in this encounter Care Teams Senior Branch Manager Relationship Specialty Start Date End Date Marco Schaffer PCP - General 09/06/1993 03/31/1998 [facility] [address] [facility], [id number] documented as of this encounter
--- OUTSIDE RECORDS SUMMARY | 2022-03-07 11:33 | XMS_ITS | Encounter Summary ---
:1970 Author Organization [employer] Address [address] [place] [address] Care Team Providers Name Role Phone Chirag Metzger PA-C Primary Care Provider Encounter Details Date Type Department Care Team Description 10/12/1995 Orders Only Keya Bower Social History Tobacco Use Types Packs/Day Years Used Date Smoking Tobacco: Never Assessed Sex Assigned at Date Recorded Not on file documented as of this encounter Plan of Treatment Not on filedocumented as of this encounter Visit Diagnoses Not on filedocumented in this encounter Care Teams Programmer Analyst Relationship Specialty Start Date End Date Chirag Metzger PA-C PCP - General Physician Sole Sewer Hand 07/06/[address] [id number] documented as of this encounter
--- OUTSIDE RECORDS SUMMARY | 2022-03-07 11:33 | XMS_ITS | Encounter Summary ---
:1970 Author Organization [facility] Address [address] [place] [address] Care Team Providers Name Role Phone Sarbjit Marco Primary Care Provider Reason for Visit Reason Comments URI [facility] Adult [facility]' [address] to be see n in peds this priya also Encounter Details Date Type Department Care Team Description 03/04/1997 Telephone Careline Rachelle Brown URI ([facility] Adult [address] [address] RN to be seen in peds [place], [place] [address] CARELINE priya also) [phone] [place] [address] Social History Tobacco Use Types Packs/Day Years Used Date Smoking Tobacco: Never Assessed Sex Assigned at Date Recorded Not on file documented as of this encounter Nursing Notes 03/04/1997 11:59 PM CDT >> LONI AMAYA 03/04/97 05:17 pm coming with daughter at 618 >> CALL RECEIVED. Contact: [phone] >> RACHELLE BROWN 03/04/97 05:13 pm Cold, st, ear ache, sl dry cough, stomach ache, lower abd cramping off and on x 2 d. Feels warm, achy all over, radha arms and legs. NKA On BCP Healthy generally documented in this encounter Plan of Treatment Not on filedocumented as of this encounter Visit Diagnoses Not on filedocumented in this encounter Care Teams Assembler For Puller Over Machine Relationship Specialty Start Date End Date Marco Schaffer PCP - General 09/06/1993 03/31/1998 [facility] [address] [facility], [address] documented as of this encounter
--- OUTSIDE RECORDS SUMMARY | 2022-03-07 11:33 | XMS_ITS | Encounter Summary ---
:1970 Author Organization [employer] Address [address] [place] [address] Care Team Providers Name Role Phone Chirag Metzger PA-C Primary Care Provider Encounter Details Date Type Department Care Team Description 12/14/1995 Orders Only Julianna De Leon MD [address] [place], [place] [address] (Wo rk) Social History Tobacco Use Types Packs/Day Years Used Date Smoking Tobacco: Never Assessed Sex Assigned at Date Recorded Not on file documented as of this encounter Plan of Treatment Not on filedocumented as of this encounter Visit Diagnoses Not on filedocumented in this encounter Care Teams Gas Engine Repairer Relationship Specialty Start Date End Date Chirag Metzger PA-C PCP - General Physician Managed Care Analyst 07/06/[address] [place] [id number] documented as of this encounter
--- OUTSIDE RECORDS SUMMARY | 2022-03-07 11:33 | XMS_ITS | Encounter Summary ---
:1970 Author Organization [employer] Address [address] [place] [address] Care Team Providers Name Role Phone Keya Gay MD Primary Care Provider Encounter Details Date Type Department Care Team Description 10/12/1995 Office Visit Keya Gay MD DYSMENORRHEA [address] [place], [place] [address] (Wo rk) Social History Tobacco Use Types Packs/Day Years Used Date Smoking Tobacco: Never Assessed Sex Assigned at Date Recorded Not on file documented as of this encounter Progress Notes Keya Gay MD - 10/12/1995 12:00 AM CDTS: 25 YOF c/o menstrual cramps. She has had these for several years and has tried various medications including Pamprin, Motrin, Tylenol without relief. She has regular periods that occur about every 28 days, 5 days of flow with the first 3 days being heavy. She is a G2, P002 with TL for control. Also had tried Ibuprofen 800 mg without much relief. O: Alert and cooperative, no acute distress. Weight 138. BP 114/68. Temp 98.1. Actually no exam was done today. A: Dysmenorrhea. P: Discussed various antiinflammatory medications that we could try and if they weren't of any benefit, could consider adding control pills to lower her flow. At this time have chosen Naprosyn 500 mg one po bid starting the day prior to her periods and continuing for the first 4 days of the cycle. She will try this for the next couple of cycles and f/u with me to let me know if it is working or not. cc: documented in this encounter Plan of Treatment Not on filedocumented as of this encounter Visit Diagnoses Diagnosis Dysmenorrhea documented in this encounter Care Teams Aws Consultant Relationship Specialty Start Date End Date Keya Gay MD PCP - General 04/01/1998 04/04/[address] [place] [address] documented as of this encounter
--- OUTSIDE RECORDS SUMMARY | 2022-03-07 11:33 | XMS_ITS | Encounter Summary ---
:1970 Author Organization [employer] Address [address] [place] [address] Care Team Providers Name Role Phone Keya Gay MD Primary Care Provider Encounter Details Date Type Department Care Team Description 09/06/1993 Office Visit Art Haynes MD Backache, unspecified [address] [place], [place] [address] (Wo rk) Social History Tobacco Use Types Packs/Day Years Used Date Smoking Tobacco: Never Assessed Sex Assigned at Date Recorded Not on file documented as of this encounter Progress Notes Art Haynes MD - 09/06/1993 12:00 AM CDTS: 23-year-old woman here following up on neck and back pain. Patient last saw me for this problem in December 1992 after she had experienced a fall hitting the back of her head. At that time I recommended that she see PT for their evaluation and treatment with various modalities. She went one time and states that her child became ill and did not f/u further. Her pain has persisted. O: Tenderness in the occipital area bilaterally posterior cervical neck pain with muscle spasm. Also lumbar tenderness with muscle spasm. DTRs at all levels are normal and symmetrical. A: Chronic upper and lower back pain with muscle spasm. P: Once again I recommended the patient f/u with PT. A consultation was written for her today. Strongly urged her to f/u for a full course of treatment. F/u here if this is not helpful. cc: documented in this encounter Plan of Treatment Not on filedocumented as of this encounter Visit Diagnoses Diagnosis Backache, unspecified documented in this encounter Care Teams Safety Investigator/Cause Analyst Relationship Specialty Start Date End Date Keya Gay MD PCP - General 04/01/1998 04/04/[address] [place] [address] documented as of this encounter
--- OUTSIDE RECORDS SUMMARY | 2022-03-07 11:33 | XMS_ITS | Encounter Summary ---
:1970 Author [facility] Address [address] [place] [address] Care Team Providers Name Role Phone Chirag Metzger PA-C Primary Care Provider Encounter Details Date Type Department Care Team Description 10/22/1995 Orders Only Andrew Pappas MD [address] [place], [place] [id number] (Wo rk) Social History Tobacco Use Types Packs/Day Years Used Date Smoking Tobacco: Never Assessed Sex Assigned at Date Recorded Not on file documented as of this encounter Plan of Treatment Not on filedocumented as of this encounter Visit Diagnoses Not on filedocumented in this encounter Care Teams Food Writer Relationship Specialty Start Date End Date Chirag Metzger PA-C PCP - General Physician Breaker Off 07/06/[address] [place] [address] documented as of this encounter
--- OUTSIDE RECORDS SUMMARY | 2022-03-07 11:33 | XMS_ITS | Encounter Summary ---
:1970 Author Organization [employer] Address [address] [place] [address] Care Team Providers Name Role Phone Keya Gay MD Primary Care Provider Encounter Details Date Type Department Care Team Description 12/14/1995 Office Visit Julianna De Leon MD ACUTE PHARYNGITIS(SORE [address] THROAT) [address] [place], [place] [address] (Wo rk) Social History Tobacco Use Types Packs/Day Years Used Date Smoking Tobacco: Never Assessed Sex Assigned at Date Recorded Not on file documented as of this encounter Progress Notes Julianna De Leon MD - 12/14/1995 12:00 AM CDTS. 25-YO woman here with three days of increasing sore throat, bilateral ear pain, plugging and tenderness in the anterior left neck. No cough. She thinks she's been running a low grade fever, but is not taking her temperature. O. Lungs are clear. There is some shotty adenopathy anteriorly bilateral. Oropharynx reveals swollen, red and pussy tonsils. There is a 6mm canker sore on the left side of the tongue. Strep test is Neg. A. Pharyngitis. Will treat empirically with Amoxicillin 250mg t.i.d. x 10 days. cc: documented in this encounter Plan of Treatment Not on filedocumented as of this encounter Visit Diagnoses Diagnosis Acute pharyngitis documented in this encounter Care Teams Silk Screen Printer Machine Relationship Specialty Start Date End Date Keya Gay MD PCP - General 04/01/1998 04/04/[address] [place] [address] documented as of this encounter
--- OUTSIDE RECORDS SUMMARY | 2022-03-07 11:33 | XMS_ITS | Encounter Summary ---
:1970 Author Organization [employer] Address [address] [place] [address] Care Team Providers Name Role Phone Keya Gay MD Primary Care Provider Encounter Details Date Type Department Care Team Description 10/01/1995 Office Visit Dayanara Willoughby MD ACUTE URI NOS [address] [place] [address] (Wo rk) Social History Tobacco Use Types Packs/Day Years Used Date Smoking Tobacco: Never Assessed Sex Assigned at Date Recorded Not on file documented as of this encounter Progress Notes Dayanara Willoughby MD - 10/01/1995 12:00 AM CDTS: Sick for 3-4 days. Right sided face pain. Hurts when she uses her mouth. Her ear hurts. Throat is sore, radiating down the right side of her neck. Uncertain of fevers but feels chilled and hot at times. O: Temp 98.4, BP 120/60. Both TM's look fine. Oral pharynx is injected. The right tonsil is quite a bit larger than the left. No exudate. Neck is supple. She has tender adenopathy on the right side. A: Pharyngitis. P: She is started on Amox. 250mg t.i.d. xl0 days, push fluids, rest. Call if no improvement. cc: documented in this encounter Plan of Treatment Not on filedocumented as of this encounter Visit Diagnoses Diagnosis Acute upper respiratory infections of un specified site documented in this encounter Care Teams Bottom Scrubber Relationship Specialty Start Date End Date Keya Gay MD PCP - General 04/01/1998 04/04/00 [address] [address] documented as of this encounter
--- OUTSIDE RECORDS SUMMARY | 2022-03-07 11:33 | XMS_ITS | Encounter Summary ---
:1970 Author Organization [employer] Address [address] [place] [address] Care Team Providers Name Role Phone Keya Gay MD Primary Care Provider Encounter Details Date Type Department Care Team Description 08/11/1994 Office Visit Marco Schaffer Routine general medical examination at [facility]; [facility] Dysuria [address] [facility], [address] Social History Tobacco Use Types Packs/Day Years Used Date Smoking Tobacco: Never Assessed Sex Assigned at Date Recorded Not on file documented as of this encounter Progress Notes Art Haynes MD - 08/11/1994 12:00 AM CSTS: RHM. LMP was 3-10 lasting the usual 5 days with cycles q 28 days. No intermenstrual spotting. Had a tubal ligation at the time of her in . C/o some vaginal and external genitalia itching that occurs whenever she has her menstrual period. She thinks it may be some irritation from the pads and tampons. Does buy the deoderant feminine products. For the past 2 days she has had a little bit of dysuria and frequency. Her fluid intake has been way down. No flank pain or fever. Remainder of ROS including cardiac, respiratory, GI, and is negative. Data base sheet was reviewed and updated. O: HEENT negative. Neck is supple without thyromegaly or adenopathy. Heart regular rate and rhythm without murmur or gallop. Breasts have some fibrocystic changes bilaterally and there was bilateral milky nipple discharge which the patient states has been present since she stopped nursing. No axillary adenopathy. Abdomen is benign. Back -no CVAT. External genitalia and vagina are normal. Cervix without lesions. Pap smear done with cytobrush. Uterus is firm, nontender, not enlarged. Adnexa without masses or tenderness. Recto-vaginal is confirmatory. UA was negative. A: Vaginal irritation that is most likely from the chemicals in the deoderant feminine products. Dysuria and frequency she has had for the past 2 days with a negative UA. P: Avoid any of the scented feminine products. If this does not help the irritation she can come in at the time that she is having symptoms. Increase po fluids and if she is still having dysuria and frequency after another few days, she can come in for another UA. Screening CBC, cholesterol and HDL. Instructed in breast self exams and given the handout. cc: documented in this encounter Plan of Treatment Not on filedocumented as of this encounter Visit Diagnoses Diagnosis Routine general medical examination at [facility] Routine general medical examination at [facility] facility Dysuria documented in this encounter Care Teams Iron Handler Relationship Specialty Start Date End Date Keya Gay MD PCP - General 04/01/1998 04/04/[address] [place] [address] documented as of this encounter
--- OUTSIDE RECORDS SUMMARY | 2022-03-07 11:33 | XMS_ITS | Encounter Summary ---
:1970 Author Organization [facility] Address [address] [place] [address] Care Team Providers Name Role Phone Chirag Metzger PA-C Primary Care Provider Encounter Details Date Type Department Care Team Description 10/03/1995 Orders Only Tamica Ferrer Social History Tobacco Use Types Packs/Day Years Used Date Smoking Tobacco: Never Assessed Sex Assigned at Date Recorded Not on file documented as of this encounter Plan of Treatment Not on filedocumented as of this encounter Visit Diagnoses Not on filedocumented in this encounter Care Teams Shift Commander Relationship Specialty Start Date End Date Chirag Metzger PA-C PCP - General Physician Fiber Picker 07/06/16 [address] [place] [address] documented as of this encounter
--- OUTSIDE RECORDS SUMMARY | 2022-03-07 11:33 | XMS_ITS | Encounter Summary ---
:1970 Author Organization [employer] Address [address] [place] [address] Care Team Providers Name Role Phone Keya Gay MD Primary Care Provider Encounter Details Date Type Department Care Team Description 12/27/1995 Office Visit Naheed Brooks MD VAGINITIS /VULVOVAGINITIS, UNSPEC(BACTERIA L V Social History Tobacco Use Types Packs/Day Years Used Date Smoking Tobacco: Never Assessed Sex Assigned at Date Recorded Not on file documented as of this encounter Progress Notes Naheed Brooks MD - 12/27/1995 12:00 AM CDTS. This is a 25 yr. old who has been on Amox. for S/T about 3-4 days ago. She developed burning and itching around the vagina about l week ago, actually preceded the Amox. She used OTC Femstat for 3 days without any benefit. She complains of a white/brown vaginal discharge and dark yellow urine. LMP was 12/04/95 and she has had a tubal ligation. She complains of urinary frequency and some dysuria and burning with intercourse. O. B.P. 106/60. Temp. 99.2. External Genitalia appear Nl. Vagina & Cervix are Nl. No cervical exudate is noted. Small amount of white discharge is present in the vagina which is Neg. on Wet Prep. U/A also is unremarkable. A. Vaginal Burning. P. Use vinegar and water douche daily and sitz baths as needed. Anticipate spontaneous resolution. Lubrication with [place] as needed for intercourse and if sx's are persistent and will RTC in l week. cc: documented in this encounter Plan of Treatment Not on filedocumented as of this encounter Visit Diagnoses Diagnosis Vaginitis and vulvovaginitis, unspecifie d documented in this encounter Care Teams Director Corporate Compliance Relationship Specialty Start Date End Date Keya Gay MD PCP - General 04/01/1998 04/04/[address] [place] [id number] documented as of this encounter
--- OUTSIDE RECORDS SUMMARY | 2022-03-07 11:33 | XMS_ITS | Encounter Summary ---
:1970 Author Organization [employer] Address [address] [place] [address] Care Team Providers Name Role Phone Chirag Metzger PA-C Primary Care Provider Encounter Details Date Type Department Care Team Description 08/29/1994 Orders Only Sahil Plunkett, DDS [facility] [place] [facility] [address] [place], [place] [address] (Wo rk) Social History Tobacco Use Types Packs/Day Years Used Date Smoking Tobacco: Never Assessed Sex Assigned at Date Recorded Not on file documented as of this encounter Plan of Treatment Not on filedocumented as of this encounter Visit Diagnoses Not on filedocumented in this encounter Care Teams Evidence Custodian Relationship Specialty Start Date End Date Chirag Metzger PA-C PCP - General Physician Disability Coordinator 07/06/[address] [place] [id number] documented as of this encounter
--- OUTSIDE RECORDS SUMMARY | 2022-03-07 11:33 | XMS_ITS | Encounter Summary ---
:1970 Author Organization [facility] Address [address] [place] [address] Care Team Providers Name Role Phone Keya Gay MD Primary Care Provider Encounter Details Date Type Department Care Team Description 10/25/1995 Office Visit Francine Sears HYPERMETROPIA; [facility] [address] [place] [address] Social History Tobacco Use Types Packs/Day Years Used Date Smoking Tobacco: Never Assessed Sex Assigned at Date Recorded Not on file documented as of this encounter Plan of Treatment Not on filedocumented as of this encounter Visit Diagnoses Diagnosis Hypermetropia Astigmatism, unspecified documented in this encounter Care Teams Staking Technician Relationship Specialty Start Date End Date Keya Gay MD PCP - General 04/01/1998 04/04/[address] [place] [address] documented as of this encounter
--- OUTSIDE RECORDS SUMMARY | 2022-03-07 11:33 | XMS_ITS | Encounter Summary ---
:1970 Author Organization [facility] Address [address] [place] [address] Care Team Providers Name Role Phone Keya Gay MD Primary Care Provider Encounter Details Date Type Department Care Team Description 03/04/1997 Office Visit [facility] Luis Fernando Thompson P HARYNGITIS(ARIADNE Valentine MD THROAT) [address] [address] [place] [address] Social History Tobacco Use Types Packs/Day Years Used Date Smoking Tobacco: Never Assessed Sex Assigned at Date Recorded Not on file documented as of this encounter Progress Notes Luis Fernando Dc - 03/04/1997 12:00 AM CDTS: Sore throat, ear pain, bodyaches, dry cough, nausea and headache. No visual changes. Child has strep throat. O: Alert and in no acute distress. TMs normal bilaterally. Eye exam reveals sharp disc margins. Throat reveals cobblestoning. Neck is supple with minimal anterior cervical adenopathy. Lungs are clear. Rapid Strep Screen is neg. A: Probable viral illness. P: Follow up for results of throat culture tomorrow. Ibuprofen p.r.n. Push fluids. cc: documented in this encounter Plan of Treatment Not on filedocumented as of this encounter Visit Diagnoses Diagnosis Acute pharyngitis documented in this encounter Care Teams Shop Worker Relationship Specialty Start Date End Date Keya Gay MD PCP - General 04/01/1998 04/04/[address] [place] [address] documented as of this encounter
[2022-03-07] MEDS: 0.9 % SODIUM CHLORIDE 1000 ml 1,000 ML IV (11:44)
[2022-03-07] MEDS: KETOROLAC 30 MG/ML inj IVP (11:45)
[2022-03-07] MEDS: diphenhydrAMINE 50 MG/ML inj 25 MG IVP (11:48)
[2022-03-07] MEDS: METHYLPREDNISOLONE SOD SUCC 62.5 MG/ML (125) 125 MG IVP (11:53)
[2022-03-07] MEDS: LORazepam 2 MG/ML inj 0.5 MG IVP (11:53)
[2022-03-07] MEDS: METOCLOPRAMIDE HCL 10 MG in 0.9 % SODIUM CHLORIDE 100 ml 100 ML 306 MG IVPB (11:57)
--- NOTE | 2022-03-07 12:20 | ED.NURSE ---
Patient in radiology at present.
[2022-03-07 12:53] VITALS: BP 140/76; PULSE 76; RESP 16; O2SAT 96
--- NOTE | 2022-03-07 12:55 | ED.NURSE ---
Patient tolerated xray okay. Headache pain /, back pian 01/28. She denies needs at present. VSS. Side rails up, call light in reach.
--- NOTE | 2022-03-07 13:04 | ED_ITS ---
HPI - Back Pain/Injury General Date Seen: 03/07/22 Chief Complaint: Back Injury/Pain Stated Complaint: Migraines, back pain L side Time Seen by Provider: 03/07/22 11:04 Source: patient Mode of arrival: ambulatory Limitations: no limitations History of Present Illness HPI Narrative: Katerina is a very nice lady presents here with 2 problems problem 1. Is left leg discomfort, that arises in her back, she has had this for the last week and half, she notices it from her left side of her back into her buttock, down her lateral part of her leg, on a her calf onto her lateral part of her 4th and 5th toes. The pain shoots and radiates when she walks, better when she lays down, on her side. She has had a history of this in the past and describes as which she describes as sciatica. She does no fevers chills or sweats with this, she has been using a little bit of Tylenol or ibuprofen, but really not a lot. She is trying to work through it by in by doing some back exercises at home that she has pulled off line. She denies any bowel or bladder situation with this fevers chills or sweats or personal history of malignancy. There is a history of fibromyalgia. Problem 2. Is 1 of migraine. She has had a migraine now for the last 2-3 days she takes her migraine medication but is now on nauseous and did vomit a couple times. She thinks it is more from the pain that she is getting from her back. She has not followed up with her primary care physician for the back pain, but also would like to be help with the migraine. She has no history of falls injury this is not atypical for her migraines, she denies no numbness tingling weakness, or any speech problems. Related Data Home Medications Medication Instructions Recorded Confirmed celecoxib 200 mg capsule 200 mg PO BID 12/20/21 03/07/22 gabapentin 600 mg tablet 600 mg PO Q8H 12/20/21 03/07/22 biotin 1 mg tablet 1 mg PO BID 01/04/22 03/07/22 cholecalciferol (vitamin D3) 1,250 50,000 unit PO DAILY 01/04/22 03/07/22 mcg (50,000 unit) capsule travoprost 0.004 % eye drops 1 drp ophthalmic (eye) QPM 01/05/22 03/07/22 Previous Rx's Medication Instructions Recorded lisinopril 30 mg tablet 30 mg PO QDAY #90 tabs 11/23/21 eletriptan 40 mg tablet See Rx Instructions PO .COMPLEX #9 12/20/21 tabs cyclobenzaprine 10 mg tablet 10 mg PO BID #90 tabs 02/09/22 triamcinolone acetonide 0.1 % 1 applic topical BID #30 grams 02/13/22 topical cream methylprednisolone 4 mg tablets in 4 mg PO DAILY #21 ea 03/07/22 a dose pack (Medrol (Leo)) tramadol 50 mg tablet 50 mg PO Q8H PRN pain #14 tabs 03/07/22 Allergies Allergy/AdvReac Type Severity Reaction Status Date / Time hydrocodone AdvReac Intermediate Hot Verified 03/07/22 10:51 flashes, nausea Review of Systems Status of ROS: Reports: 10 or more systems reviewed and unremarkable except as noted in History and below [facility] Medical History Encounter for counseling regarding advance directives (05/25/16) Endometriosis determined by laparoscopy Epigastric pain Uveitis (2018) Surgical History History of arthroscopy of left knee (2017) Status post bilateral salpingo-oophorectomy (BSO) Status post laparoscopic supracervical hysterectomy Family History Brother Breast cancer Systemic lupus erythematosus Sister Crohn's disease Glaucoma Systemic lupus erythematosus Mother Glaucoma High blood pressure Father Glaucoma High blood pressure Systemic lupus erythematosus Other Rheumatoid arthritis Social History Narrative: Non-smoker Smoking Status: Never smoker Do you use any of these nicotine containing products: None Second hand tobacco smoke exposure: No How often do you have a drink containing alcohol: monthly or less AUDIT-C Alcohol total score: 1 Non-prescribed substance use: denies use service: No Exam Narrative: Exam Narrative: Patient is seen in room 7 she is in no apparent distress, she is able to stand for me but she does offload her left leg. She is able to walk on her toes, and her heels, her forward flexion is hands within 6 in of the floor backward extension is slow but she is able to walk or supple up to the full position. The slightly excessive lumbar lordosis, but no palpable tenderness masses noted on palpation percussion over her lumbar spine, she localizes her pain over the left posterior iliac crest, with radiation to her left buttock. She has a positive straight leg raise on the left, and also worsened with augmentation. Her knee jerks and ankle jerks are symmetrical bilaterally at 2+, her sensations normal overall the signature dermatomal areas, and her pulses are normal her EHLs great toe flexors ankle dorsiflexors and plantar flexors knee flexors and extensors and hip flexors are graded 5/5 power bilaterally. Pupils are equal round reactive to light there is no scleral icterus or redness TMs are normal oropharynx is normal cranial nerves 3-12 are normal her speech is normal, her carotid upstrokes are equal bilaterally her JVP is flat there is no meningismus noted, her patient case coordinator strengths are normal in her upper extremities, as is her power. Const: Vital Signs, click to edit/add: Vital Signs - 24 hr 03/07/22 10:47 03/07/22 12:53 03/07/22 13:25 Temperature 97.7 F Pulse Rate [Pulse Oximeter] 99 76 86 Respiratory Rate 16 16 16 Blood Pressure [Ri ght Upper Arm] 166/103 H 140/76 H 136/86 Pulse Oximetry 98 96 98 Oxygen Delivery Me thod Room Air Room Air Room Air Documenting provider has reviewed patient's vital signs: yes Course Course Hospital Course: Patient did well with the Reglan, Toradol, her pain decreased common her headache went away. I discussed with her the further ongoing treatment, I would suggest that she follow up with primary care and consideration of advanced imaging verses for physical therapy, or further consultation. 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 She would like to continue with the prescription Vital Signs Vital signs: Initial Vital Signs Temperature 97.7 F 03/07/22 10:47 Temperature Source Temporal Artery Scan 03/07/22 10:47 Pulse Rate 99 03/07/22 10:47 Pulse Rhythm 03/07/22 10:47 Pulse Strength 3+ Normal 03/07/22 10:47 Respiratory Rate 16 03/07/22 10:47 Blood Pressure 166/103 H 03/07/22 10:47 Blood Pressure Mean 124 03/07/22 10:47 Blood Pressure Position Standing 03/07/22 10:47 Pulse Oximetry 98 03/07/22 10:47 Oxygen Delivery Method 03/07/22 10:47 Vital Signs Temperature 97.7 F 03/07/22 10:47 Pulse Rate 99 03/07/22 10:47 Respiratory Rate 16 03/07/22 10:47 Blood Pressure 166/103 H 03/07/22 10:47 Pulse Oximetry 98 03/07/22 10:47 Oxygen Delivery Method 03/07/22 10:47 Temperature 97.7 F 03/07/22 10:47 Pulse Rate 86 03/07/22 13:25 Respiratory Rate 16 03/07/22 13:25 Blood Pressure 136/86 03/07/22 13:25 Pulse Oximetry 98 03/07/22 13:25 Oxygen Delivery Method 03/07/22 13:25 MDM - Back Pain/Injury MDM Narrative Medical decision making narrative: Patient is seen and assessed, Life-threatening differential diagnosis include subarachnoid hemorrhage, meningitis, encephalitis, carbon monoxide poisoning, and intracerebral hemorrhage. Other differential diagnosis include but not limited to migraine, cluster headache, tension headache, NETWORK CONTROL OPERATORS SUPERVISOR vasculitis, mass lesion, temporal arteritis, click acute closed angle glaucoma, septal and trigeminal neuralgia, sinusitis, closed head injury, and stroke I think there is also a component here of left-sided sciatica, discussed with her we can possibly treat both by using medications for this, and Medrol dose. Along with a Medrol pack. Follow-up with primary care if that is good. Differential Diagnosis Differential diagnosis: Likely lumbar radiculopathy, sciatica, strain of lumbar region, pyelonephritis, thoracic back pain, AAA and discitis Medical Records Attestation: I reviewed the patient's medical records. Lab Data Attestation: I reviewed the patient's lab results. Imaging Data Lumbar spine: Attestation: I have reviewed the pertinent imaging results. My impression: Negative lumbar spine, Radiologist's impression: Patient: KATERINA LA Facility: [facility] Site . Site : 1970 Study: XRay Spine Lumbar 3V-03/07/2022 12:39:15 PM Ordering Physician: Yoanna Moya Final Report: INDICATION: Low-back pain. TECHNIQUE: Lumbar spine 3 view COMPARISON: Lumbar spine radiographs from 11/02/2020. FINDINGS: Bones: Alignment is normal. No fractures or significant bone lesions. Joints: Disc spaces and facets are unremarkable. Soft tissues: Unremarkable. IMPRESSION: Unremarkable lumbar spine. Dictated by Quinn Whitfield MD @ 03/07/2022 12:45:21 PM (Electronic Signature) Lumbar x-ray: Attestation: I have reviewed the pertinent imaging results. My impression: X-rays negative Radiologist's impression: Patient: KATERINA LA Facility: [facility] Site . Site : 1970 Study: XRay Spine Lumbar 3V-03/07/2022 12:39:15 PM Ordering Physician: Yoanna Moya Final Report: INDICATION: Low-back pain. TECHNIQUE: Lumbar spine 3 view COMPARISON: Lumbar spine radiographs from 11/02/2020. FINDINGS: Bones: Alignment is normal. No fractures or significant bone lesions. Joints: Disc spaces and facets are unremarkable. Soft tissues: Unremarkable. IMPRESSION: Unremarkable lumbar spine. Dictated by Quinn Whitfield MD @ 03/07/2022 12:45:21 PM (Electronic Signature) Discharge Plan Discharge Clinical Impression: Lumbar radiculopathy, Migraine Patient Disposition: Home, Self-Care Condition: Stable Instructions: Migraine Headache (ED), Lumbar Radiculopathy (ED), Lower Back Exercises (ED) Additional Instructions: Discharge home, off for 2 days from work, use of the tramadol along with the Medrol Dosepak as needed, ice is helpful, follow-up with primary care within the week, consideration of further referral to physical therapy or possible MRI through primary care. Prescriptions: New methylprednisolone [Medrol (Leo)] 4 mg tablets,dose pack 4 mg PO DAILY Qty: 21 0RF tramadol 50 mg tablet 50 mg PO Q8H PRN (Reason: pain) Qty: 14 0RF Rx Instructions: sciatica No Action gabapentin 600 mg tablet 600 mg PO Q8H celecoxib 200 mg capsule 200 mg PO BID eletriptan 40 mg tablet See Rx Instructions PO .COMPLEX Qty: 9 0RF Rx Instructions: take 1 tab at onset of headache; if no relief, may repeat 1 tab after at least 2 hrs; max = 2 tabs/24 hrs PO cholecalciferol (vitamin D3) 1,250 mcg (50,000 unit) capsule 50,000 unit PO DAILY biotin 1 mg tablet 1 mg PO BID travoprost 0.004 % drops 1 drp ophthalmic (eye) QPM lisinopril 30 mg tablet 30 mg PO QDAY Qty: 90 1RF cyclobenzaprine 10 mg tablet 10 mg PO BID Qty: 90 2RF triamcinolone acetonide 0.1 % cream 1 applic topical BID Qty: 30 1RF Follow Up/Referrals: Simona Mendez PA-C [Primary Care Provider] - Stand Alone Forms: [employer] Info Instructions
[2022-03-07 13:25] VITALS: BP 136/86; PULSE 86; RESP 16; O2SAT 98
== END 2022-03-07 14:10 | disposition home or self-care (01) ==
PROVIDERS: Emergency Provider Family Medicine; PCP Physician Assistant Medical
DX: M54.16 Radiculopathy, lumbar region (principal); G43.909 Migraine, unspecified, not intractable, without status migrainosus; M79.7 Fibromyalgia; Z79.899 Other long term (current) drug therapy
CPT/HCPCS: 72100; 96361; 96365; 96374; 96375; 99284; J1200; J1885; J2060; J2765; J2930; J7030

== ENCOUNTER 2022-04-03 07:02 | Outpatient (CLI) | payer OTHER, SELFPAY ==
--- OUTSIDE RECORDS SUMMARY | 2022-04-03 07:04 | XMS_ITS | Encounter Summary ---
:1970 Author Organization [employer] Address [address] [place] [address] Care Team Providers Name Role Phone Chirag Metzger PA-C Primary Care Provider Encounter Details Date Type Department Care Team Description 03/16/2021 Orders Only Initial Department Provider, Micaela, [address] [place], [place] [address] Interface provider [phone] [place] [address] Social History Tobacco Use Types Packs/Day Years [...] on filedocumented in this encounter Care Teams Telesales Manager Relationship Specialty Start Date End Date Chirag Metzger PA-C PCP - General Physician Cold Roll Inspector 07/06/16 [address] [place] [address] documented as of this encounter
--- OUTSIDE RECORDS SUMMARY | 2022-04-03 07:04 | XMS_ITS | Clinical Summary ---
:1970 Author Organization [facility] Address [address] [place] [address] Care Team Providers Name Role Phone Chirag [...] for each transition of care or referral. ZYB Allergies No known active allergies Medications Medication [...] light sensiti vity. 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 Body Mass Index 39.41 07/06/2016 8:17 AM HOUSING ASSISTANT PROPERTY MANAGER Plan of Treatment Health Maintenance Due Date [...] Address T ype Group Dates PREFERREDONE PREFERREDONE [id number] [facility] [phone] OPEN ACCESS ent [phone] [address] [phone] [place] Personal/Family Self [phone] (Home) W [phone] [address] (Work) [phone] Yesika Wardnda Workers Comp Self [phone] (Home) [place] [address] [employer] Non-Covered/Pre Self [phone] pay (Home) [place] [address] Care Teams Coffee Grinder Relationship Specialty Start Date End Date Chirag Metzger PA-C PCP - General Physician Frame Feeder 07/06/16 [address] [place], [place] [id number]
--- OUTSIDE RECORDS SUMMARY | 2022-04-03 07:05 | XMS_ITS | Encounter Summary ---
:1970 Author Organization [employer] Address [address] [place] [address] Care Team Providers Name Role Phone Chirag Metzger PA-C Primary Care Provider Reason for Visit Reason Comments Annual Exam Encounter Details Date Type Department Care Team Description 03/06/2018 Office Visit Chirag Chopra, Annual physical exam (Primar y Dx); [address] PA-C Rectal pain, chronic; [place] [address] [address] Chronic pelvic pain in female; [phone] [place] [address] Spasm of back muscles; [phone] Segmental and s omatic dysfunction of cervical region; (Work) Segmental and somatic dysfunction of tho racic region; [phone] Segmental and s omatic dysfunction of sacral [...] Body Mass Index 33.5 07/06/2016 8:17 AM TRUST OPERATIONS 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 She is working at their [place] location, andhas been seeing them for this, [...] hcl, and rizatriptan. has No Known Allergies. Enterprise Integration Architect History: : No obstetric history on file. [...] yrs) 04/10/2000 ??? Influenza IIV4 (Quadrivalent) 0.5mL (92342) 03/20/2014, 02/02/2015 ??? Influenza, Unspecified Formulation 03/04/2013 [...] - 03/06/2018 4:41 PM CDT Performed at [facility], [address] [place] [address] CLIA number [id number] Chirag Metzger PA-C LAB_1 Performing Organization Address [facility]/ZIP Code Phon e Number PN SOFT [address] [place] [address] TSH with Free T4 (if TSH Abnormal) (03/06/2018 3:12 PM CDT) athologist Signature Thyroid 0.70 0.30 - PN SOFT Stimulating 4.50 Hormone uIU/mL Specimen Anatomical Collection Method Collection Time Receive d Time (Source) Location / / Volume Laterality 03/06/2018 3:12 PM 8 6:17 CDT PM CDT Narrative PN SOFT - 03/06/2018 7:05 PM CDT Performed at [address] [address] CLIA number [id number] Chirag Metzger PA-C LAB_1 Performing Organization Address City/[facility] Phon e Number PN SOFT [address] [place] [address] (ABNORMAL) Vitamin D 25-Hydroxy (In house) (03/06/2018 [...] - 03/06/2018 7:08 [place] [address] CLIA number [id number] Chirag L Shore PA-C LAB_1 Performing Organization Address [facility]/ZIP Code Phon e Number PN SOFT [address] [place] [address] (ABNORMAL) Lipid Panel - LDLD If Trig [...] - 03/06/2018 6:59 PM CDT Performed at [facility], [facility] [address] [place] [address] CLIA number [id number] Chirag Metzger PA-C LAB_1 Performing Organization Address [facility] Phon e Number PN SOFT [address] [place] [address] (ABNORMAL) Electrolyte Panel (03/06/2018 3:12 PM CDT) [...] - 03/06/2018 6:59 PM CDT Performed at [facility], [address] [place] [address] CLIA number [id number] Chirag Metzger PA-C LAB_1 Performing Organization Address [facility] Phon e Number PN SOFT [address] [place] [address] Creatinine (03/06/2018 3:12 PM CDT) athologist Signature [...] - 03/06/2018 6:59 PM CDT Performed at [facility], [facility] [address] [place] [address] CLIA number [id number] Chirag Metzger PA-C LAB_1 Performing Organization Address City/[facility]/ZIP Code Phon e Number PN SOFT [address] [place] [address] BUN (03/06/2018 3:12 PM CDT) athologist Signature Blood Urea <10 9 - 26 PN SOFT Nitrogen mg/dL Specimen Anatomical Collection Method Collection Time Receive d Time (Source) Location / / Volume Laterality 03/06/2018 3:12 PM 8 4:51 CDT PM CDT Narrative PN SOFT - 03/06/2018 6:59 PM CDT Performed at [facility], [address] [place] [address] CLIA number [id number] Chirag Metzger PA-C LAB_1 Performing Organization Address City/[facility] Code Phon e Number PN SOFT [address] [place] [address] Aspartate Aminotransferase (AST) (03/06/2018 3:12 PM CDT) [facility] gist Method Time Signature Aspartate 20 10 - 40 PN SOFT Aminotransferase U/L Specimen Anatomical Collection Method Collection Time Receive d Time (Source) Location / / Volume Laterality 03/06/2018 3:12 PM 8 4:51 CDT PM CDT Narrative PN SOFT - 03/06/2018 6:59 PM CDT Performed at [facility], [address] [place] [address] CLIA number [id number] Chirag Metzger PA-C LAB_1 Performing Organization Address City/[facility] Code Phon e Number PN SOFT [address] [place] [address] Alanine Aminotransferase - ALT (SGPT) (03/06/2018 3:12 PM CDT) [facility] gist Method Time Signature Alanine 17 9 - 55 PN SOFT Aminotransferase U/L Specimen Anatomical Collection Method Collection Time Receive d Time (Source) Location / / Volume Laterality 03/06/2018 3:12 PM 8 4:51 CDT PM CDT Narrative PN SOFT - 03/06/2018 6:59 PM CDT Performed at [facility], [address] [place] [address] CLIA number [id number] Chirag Metzger PA-C LAB_1 Performing Organization Address [facility] Phon e Number PN SOFT [address] [place] [address] (ABNORMAL) Hemoglobin A1C Glycosylated (03/06/2018 3:12 PM CDT) P athologist Signature HGB A1C 5.9 (H) 4.0 - 5.6 % PN SOFT Specimen Anatomical Collection Method Collection Time Receive d Time (Source) Location / / Volume Laterality 03/06/2018 3:12 PM 8 8:54 CDT PM CDT Narrative PN SOFT - 03/06/2018 10:56 PM CDT Performed at [address] [address] CLIA number [id number] Chirag Metzger PA-C LAB_1 Performing Organization Address City/[facility]/ZIP Code Phon e Number PN SOFT [address] [place] [address] [phone] Pap Smear (03/06/2018 2:57 PM CDT) Specimen (Source) Anatomical Collection Method Collection Time Re ceived Time Location / / Volume Laterality 03/06/2018 2:57 PM CDT Narrative PN SOFT - 03/23/2018 9:23 AM CDT FINAL GYNECOLOGICAL CYTOLOGY REPORT Pathology #: [id number] ?Date Obtained: 03/06/2018 ? Date Received: 03/07/2018 [...] false-negative report s may occur. Performed at [facility], [address] [place] [address] Chirag Meztger PA-C LAB_1 Performing Organization Address City/State/ZIP Code Phon e Number PN SOFT [address] [place] [address] [phone] HPV with 16 18 Genotyping (03/06/2018 2:57 PM CDT) [facility] Method Time Signature HPV High Risk Not Detected PN SOFT 16 HPV High Risk Not Detected PN SOFT 18 Other HPV High Not Detected PN SOFT Risk Not 16/18 Comment: ........................................ ................................. The Andrzej HPV Test is a qualitative in v itro test for the detection of Human Papillomavirus in [facility] patient specimens. ??The test utilizes amplifica tion [...] and its pe rformance characteristics determined by [facility]. It has not been cleared or approved by [facility]. The laboratory is regulated under CLIA as qualified to perform high-complexity testing. This test is used for clinical purposes. It should not be regarded as investigational or fo r research. Specimen Anatomical Collection Method Collection Time Receive d Time (Source) Location / / Volume Laterality 03/06/2018 2:57 PM 8 2:57 CDT PM CDT Narrative NORA SOFT - 2018 12:58 PM CDT Performed at [place] [address] CLIA number [id number] Chirag Metzger PA-C LAB_1 Performing Organization Address [facility] Code Phon e Number PN SOFT [facility] [place] [address] Pap Test Order (03/06/2018 2:57 PM CDT) Analysis Performed At [facility] Time Signature Pap Smear Collected PN SOFT Monolayer tracking test Specimen Anatomical Collection Method Collection Time Receive d Time (Source) Location / / Volume Laterality 03/06/2018 2:57 PM 8 5:09 CDT AM CDT Narrative NORA SOFT - 03/06/2018 2:57 PM CDT Performed at [address] [address] CLIA number [id number] Chirag L Shore PA-C LAB_1 Performing Organization Address City/State/ZIP Code Phon e Number PN SOFT [address] [place] [address] documented in this encounter Visit Diagnoses Diagnosis [...] facility documented in this encounter Care Teams Instrument Panel Assembler Relationship Specialty Start Date End Date Chirag Metzger PA-C PCP - General Physician Superintendent Oil Field Drilling 07/06/16 [address] [place] [address] documented as of this encounter
--- OUTSIDE RECORDS SUMMARY | 2022-04-03 07:05 | XMS_ITS | Encounter Summary ---
:1970 Author Organization [employer] Address [address] [place] [address] Care Team Providers Name Role Phone Chirag Metzger PA-C Primary Care Provider Encounter Details Date Type Department Care Team Description 03/06/2018 Lab Visit [facility] Fatigue, unspecified type; [address] Essential hypertension; [place] [address] Annual physical exam [phone] Social History Tobacco Use Types Packs/Day Years [...] - 03/06/2018 4:41 PM CDT Performed at [facility], [facility] access [facility], [place] [address] CLIA number [id number] Chirag Metzger PA-C LAB_1 Performing Organization Address City/State/ZIP Code Phon e Number PN SOFT [address] [place] [address] TSH with Free T4 (if TSH Abnormal) (03/06/2018 3:12 PM CDT) athologist Signature Thyroid 0.70 0.30 - PN SOFT Stimulating 4.50 Hormone uIU/mL Specimen Anatomical Collection Method Collection Time Receive d Time (Source) Location / / Volume Laterality 03/06/2018 3:12 PM 8 6:17 CDT PM CDT Narrative PN SOFT - 03/06/2018 7:05 PM CD[place] [address] CLIA number [id number] Chirag Metzger PA-C LAB_1 Performing Organization Address [facility] Phon e Number PN SOFT [address] [place] [address] (ABNORMAL) Vitamin D 25-Hydroxy (In house) (03/06/2018 [...] - 03/06/2018 7:08 PM CDT Performed at [address] [address] CLIA number [id number] Chirag Metzger PA-C LAB_1 Performing Organization Address [facility] Phon e Number PN SOFT [address] [place] [address] (ABNORMAL) Lipid Panel - LDLD If Trig High (03/06/2018 3:12 PM CDT) [facility] Method Time Signature Cholesterol 203 (H) [...] - 03/06/2018 6:59 PM CDT Performed at [facility], [address] [place], [place] [address] CLIA number [id number] Chirag Metzger PA-C LAB_1 Performing Organization Address [facility] Phon e Number PN SOFT [address] [place] [address] [phone] (ABNORMAL) Electrolyte Panel (03/06/2018 3:12 PM CDT) [...] - 03/06/2018 6:59 PM CDT Performed at [facility], [address] [place] [address] CLIA number [id number] Chirag Metzger PA-C LAB_1 Performing Organization Address [facility] Phon e Number PN SOFT [address] [place] [address] [phone] Creatinine (03/06/2018 3:12 PM CDT) athologist Signature [...] - 03/06/2018 6:59 PM CDT Performed at [facility], [address] [place] [address] CLIA number [id number] Chirag Metzger PA-C LAB_1 Performing Organization Address City/[facility]/ZIP Code Phon e Number PN SOFT [address] [place] [address] [phone] BUN (03/06/2018 3:12 PM CDT) P athologist Signature Blood Urea <10 9 - 26 PN SOFT Nitrogen mg/dL Specimen Anatomical Collection Method Collection Time Receive d Time (Source) Location / / Volume Laterality 03/06/2018 3:12 PM 8 4:51 CDT PM CDT Narrative PN SOFT - 03/06/2018 6:59 PM CDT Performed at [facility], [address] [place] [address] CLIA number [id number] Chirag Metzger PA-C LAB_1 Performing Organization Address [facility] Code Phon e Number PN SOFT [address] [place] [address] Aspartate Aminotransferase (AST) (03/06/2018 3:12 PM CDT) Patholo gist Method Time Signature Aspartate 20 10 - 40 PN SOFT Aminotransferase U/L Specimen Anatomical Collection Method Collection Time Receive d Time (Source) Location / / Volume Laterality 03/06/2018 3:12 PM 8 4:51 CDT PM CDT Narrative PN SOFT - 03/06/2018 6:59 PM CDT Performed at [facility], [address] [place] [address] CLIA number [id number] Chirag Metzger PA-C LAB_1 Performing Organization Address City/[facility]/ZIP Code Phon e Number PN SOFT [address] [place] [address] Alanine Aminotransferase - ALT (SGPT) (03/06/2018 3:12 PM CDT) Patholo gist Method Time Signature Alanine 17 9 - 55 PN SOFT Aminotransferase U/L Specimen Anatomical Collection Method Collection Time Receive d Time (Source) Location / / Volume Laterality 03/06/2018 3:12 PM 8 4:51 CDT PM CDT Narrative PN SOFT - 03/06/2018 6:59 PM CDT Performed at [facility], [address] [place] [address] CLIA number [id number] Chirag Metzger PA-C LAB_1 Performing Organization Address City/[facility]/ZIP Code Phon e Number PN SOFT [address] [place] [address] (ABNORMAL) Hemoglobin A1C Glycosylated (03/06/2018 3:12 PM CDT) P athologist Signature HGB A1C 5.9 (H) 4.0 - 5.6 % PN SOFT Specimen Anatomical Collection Method Collection Time Receive d Time (Source) Location / / Volume Laterality 03/06/2018 3:12 PM 8 8:54 CDT PM CDT Narrative PN SOFT - 03/06/2018 10:56 PM CDT Performed at [address] [address] CLIA number [id number] Chirag Metzger PA-C LAB_1 Performing Organization Address City/[facility] Phon e Number PN SOFT [address] [place] [address] documented in this encounter Visit Diagnoses Diagnosis Fatigue, unspecified type Essential hypertension (HRC) Unspecified essential hypertension Annual physical exam Routine general medical examination at a health care facility documented in this encounter Care Teams Gasoline Engine Inspector Relationship Specialty Start Date End Date Chirag Metzger PA-C PCP - General Physician Pershing Missile Crewmember 07/06/16 [address] [place] [address] documented as of this encounter
--- OUTSIDE RECORDS SUMMARY | 2022-04-03 07:05 | XMS_ITS | Encounter Summary ---
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
--- OUTSIDE RECORDS SUMMARY | 2022-04-03 07:05 | XMS_ITS | Encounter Summary ---
:1970 Author Organization [employer] Address [address] [place] [address] Care Team Providers Name Role Phone Chirag Metzger PA-C Primary Care Provider Encounter Details Date Type Department Care Team Description 02/14/2019 Lab Visit [facility] Polyarthralgia [address] [place] [address] Social History Tobacco Use Types [...] Antibodies (02/14/2019 4:59 PM CDT) athologist Signature NGUYEN/AUTOMATION AND CONTROLS INSTRUCTOR 1 0 - 40 02/16/2019 [facility] (AGUILA) Ab, IGG AU/mL 4:12 PM CDT LABORATORIES Comment: INTERPRETIVE INFORMATION: Nguyen/AUTOMATION AND CONTROLS INSTRUCTOR (AGUILA ) Antibody, IgG ??29 AU/mL or Less ............. Negati ve ??30 - 40 AU/mL ................ Equivo zenaida ??41 AU/mL or Greater .......... Positi ve Nguyen/AUTOMATION AND CONTROLS INSTRUCTOR antibodies are frequently seen in patients with mixed connective tissue disease (MCTD) and are also associated with other systemic autoimmune rheumatic dise ases (SARDs) such as systemic lupus erythematosus (SLE), syst emic sclerosis, and myositis. Antibodies targeting the Nguyen /AUTOMATION AND CONTROLS INSTRUCTOR antigenic complex also recognize Nguyen antigens, therefore , the Nguyen antibody response must be considered when interpr eting these results. Performed by [facility], [address] [place] [address] [email or web address], Crow Duran MD, Lab. Director AGUILA To Nguyen (Sm) 0 0 - 40 AU/mL 02/16/2019 4:12 PM CDT [facility] Antibody Comment: INTERPRETIVE INFORMATION: Nguyen (AGUILA) An [...] - 40 AU/mL 9 4:12 PM CDT [facility] IGG (AGUILA) Comment: INTERPRETIVE INFORMATION: SSA-52 (Ro52) [...] 40 AU/mL 02/16/2019 4:1 2 PM CDT [facility] (AGUILA) Comment: INTERPRETIVE INFORMATION: SSB (La) (AGUILA) [...] - 40 AU/mL 02/16/2019 4:12 PM CDT [facility] IGG (AGUILA) Comment: REFERENCE INTERVAL: SSA-60 [...] Organization Address City/State/ZIP Code Phon e Number [facility] [address] [place], [place] [address] CCPIG - Cyclic Citrullinated Peptide AB (02/14/2019 4:59 PM CDT) [facility] Method Time Signature Anti-CCP Antibody 1 <7 U/mL 02/17/2019 [facility] 12:57 PM [facility]TRAL LAB CDT Anti-CCP Antibody Negative Negative 02/17/2019 [facility] Interpretation 12:57 PM CENTRAL LAB CDT Specimen Anatomical Collection Method / Collection Time Recei steven Time (Source) Location / Volume Laterality Blood Venipuncture / 02/14/2019 4:59 02/14/2019 4:59 Unknown PM CDT PM CDT Zaira Ortiz PA-C LAB_1 Performing Organization Address City/[facility]/ZIP Code Phon e Number [facility] [address] [address] DNA - Anti-dsDNA Antibody (02/14/2019 4:59 PM CDT) [facility] Method Time Signature Anti-DNA Ab <1:10 <1:10 02/17/2019 [facility] 10:51 AM LABORATORY CDT Anti-DNA Antibody Negative Negative 02/17/2019 [facility] Interpretation 10:51 AM LABORATORY CDT Specimen Anatomical Collection Method / Collection Time Recei steven Time (Source) Location / Volume Laterality Blood Venipuncture / 02/14/2019 4:59 02/14/2019 4:59 Unknown PM CDT PM CDT Zaira Ortiz PA-C LAB_1 Performing Organization Address City/State/ZIP Code Phon e Number [facility] [address] [place] [address] C4 - C4 Complement (02/14/2019 4:59 PM CDT) athologist Signature C4 Complement 51.0 15.0 - 02/14/2019 [facility] 57.0 mg/dL 9:30 PM CDT LABORATORY Specimen Anatomical Collection Method / Collection Time Recei steven Time (Source) Location / Volume Laterality Blood Venipuncture / 02/14/2019 4:59 02/14/2019 4:59 Unknown PM CDT PM CDT Zaira Ortiz PA-C LAB_1 Performing Organization Address [facility] Phon e Number [facility] [address] [place] [address] C3 - C3 Complement (02/14/2019 4:59 PM CDT) athologist Signature C3 Complement 158 83 - 193 02/14/2019 [facility] mg/dL 9:30 PM CDT LABORATORY Specimen Anatomical Collection Method / Collection Time Recei steven Time (Source) Location / Volume Laterality Blood Venipuncture / 02/14/2019 4:59 02/14/2019 4:59 Unknown PM CDT PM CDT Zaira Ortiz PA-C LAB_1 Performing Organization Address City/[facility] Phon e Number [facility] [address] [place] [address] documented in this encounter Visit Diagnoses Diagnosis Polyarthralgia Pain in joint, multiple sites documented in this encounter Care Teams Baseball Winder Relationship Specialty Start Date End Date Chirag Metzger PA-C PCP - General Physician Corporate Financial Analyst 07/06/[address] [place] [address] documented as of this encounter
--- OUTSIDE RECORDS SUMMARY | 2022-04-03 07:05 | XMS_ITS | Encounter Summary ---
:1970 Author Organization [employer] Address [address] [place] [address] Care Team Providers Name Role Phone Chirag Metzger PA-C Primary Care Provider Reason for Visit Reason Comments Refill methocarbamol (ROBAXIN) 500 MG tablet [Pharmacy Med Name: Methocarbamol Oral Tablet 500 MG] Encounter Details Date Type Department Care Team Description 02/22/2018 Refill [facility] Chirag Metzger, Refill (methocarbamol [address] LION (ROBAXIN) 500 [place] [address] [address] [Pharmacy Med Name: [phone] [place] [address] Methocarbamol Oral Tablet [phone] 500 MG]) (Work) Social History Tobacco Use Types Packs/Day Years Used Date Smoking Tobacco: Never Smokeless Tobacco: Never Alcohol Use Standard Drinks/Week Comments Yes 3 (1 standard drink = 0.6 oz pure alcoho l) Sex Assigned at Date Recorded Not on file documented as of this encounter Nursing Notes Chirag Metzger PA-C - 02/27/2018 1:47 PM CDT faxed Radha Espino - 02/27/2018 12:17 PM CDT Patient is scheduled for 03/06 Radha Espino - 02/26/2018 1:25 PM CDT Left message on the answering machine to call me back to schedule an appointment Chirag Metzger PA-C - 02/26/2018 12:50 PM CDT Please help patient schedule appointment within 30 days. Once scheduled, send back for short prescription. Interface, Out Surescripts Prov Query - 02/22/2018 5:30 PM CDT methocarbamol (ROBAXIN) 500 MG tablet [Pharmacy Med Name: Methocarbamol Oral Tablet 500 MG] Medication started: 11/26/2013 Last ordered by CHIRAG METZGER: 03/28/2017 (331 days ago) QTY: 30, Refills: 1, Sig: take 1 tablet by mouth 4 times daily as needed for muscle spasms. do not drive within 8 hours of taking. (unchanged) -> Medication cannot be delegated. Last qualifying visit: 07/06/2016 (with CHIRAG METZGER) Next scheduled visit: None Powered by [employer], Reference: [id number], 02/22/2018 5:30:07 PM CDT, Pool: DAVID LAIRDILL ([id number]) documented in this encounter Plan of Treatment Not on filedocumented as of this encounter Visit Diagnoses Diagnosis Rectal pain, chronic Anal or rectal pain Chronic pelvic pain in female Unspecified symptom associated with fema le genital organs documented in this encounter Care Teams Clinical Sales Consultant Relationship Specialty Start Date End Date Chirag Metzger PA-C PCP - General Physician Relish Blender 07/06/16 [address] [place] [address] documented as of this encounter
--- OUTSIDE RECORDS SUMMARY | 2022-04-03 07:05 | XMS_ITS | Encounter Summary ---
:1970 Author Organization [facility] Address [address] [place] [address] Care Team Providers Name Role Phone Chirag Metzger PA-C Primary Care Provider Reason for Referral Therapies (Routine) - Closed Specialty Diagnoses / Procedures Referred By Contact Refer red To Contact Diagnoses Fibromyalgia Chronic pain of left knee Chronic bilateral low back pain, with sciatica presence unspecified (HRC) Zaira Ortiz PA-C [address] [place], [place] [address] Referral ID Status Reason Start Date Expiration Date Visits Requ ested Visits Authorized [id number] Closed 02/14/2019 04/15/2019 1 1 Scheduling Instructions [...] Department Care Team Description 02/14/2019 Office Visit [place] Zaudke, Zaira M, Fibromyalg ia (Primary Dx); Rheumatology LION Chronic pain syndrome; [address] [place] [address] [place] Polyarthralgia; [place] [address] Blvd Chronic pain of left knee; [phone] [place], [place] Leg pain, diffuse, left; [address] Chronic bilateral low back pain, with sc iatica presence unspecified; [phone] Family history of systemic lupus erythematosus; (Work) [...] Body Mass Index 39.41 07/06/2016 8:17 AM UNDERWEAR TRIMMER documented in this encounter Patient Instructions Patient InstructionsZaira Ortiz, LION - 02/14/2019 3:45 PM CDT 1. Increase [...] for breakthrough pain 5. Continue with the ramp supervisor and topical therapy for the uveitis -If [...] negative. She had initially been seen at [facility]. She underwent a left knee arthroscopy for chronicleft knee pain and a periarticular ganglion cyst. Diagnosis were left knee fat pad impingement and extra-articular ganglion cyst. She has had some chronic left knee pain since arthroscopic procedure 2017. MRI of the left knee July, showed soft tissue edema at the medial aspect of theknee, no chondral injuries. She saw Dr. Perez at [facility] in August 2018, for anotheropinion, he aspirated the left knee and it revealed a clear straw-colored fluid and was given a cortisone injection as well as a Medrol Dosepak.There has been some concern she might have underlying auto immune disease and she was recommended to see rheumatology. She was also referred to the [facility] for possible chronic regional pain [...] Dr. Lind had received a note from [facility]. Keara had been seen at the [facility] [place] for uveitis on topical therapy. A panel of labs were suggested to rule out systemic disease. She was then seen by Simona Mendez PA-C at [facility] on February 10. She had [...] diagnosed with bilateral uveitis. She has seen [facility] [place]. I do not have the records to [...] to be helpful for her musculoskeletal pain, shealso takes gabapentin 300 mg t.i.d., tolerating both [...] for today's visit was reviewed, sent to [facility] and is as noted above and/or notable for: weight gain, weakness, dry mouth, depression, and problems sleeping. Family History: Father had psychosis, sister with fibromyalgia, sister with Graves disease and rheumatoid arthritis, brother with hypertension and lupus, another family member with fibromyalgia. Social History: . 2 children. 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 Never smoker. Social alcohol [...] Cervicalgia 07/14/2016 ??? Pain in thoracic spine (HRC) 07/14/2016 ??? Endometriosis 07/06/2016 ??? Primary open angle glaucoma of both eyes, mild stage 07/06/2016 ??? Spasm of back muscles 04/03/2016 ??? Obese ([facility]) 09/17/2013 Overview Note: Currently working with obesity clinic. ??? Migraine, chronic, without aura, intractable, with status migrainosus 09/20/2012 ??? Syncope, psychogenic ([facility]) Overview Note: stress reaction No Known Allergies [...] I recommend ongoing follow up at the [facility] regarding her opioid analgesics. Annmay be a candidate for geniculate nerve ablation [...] Ortiz PA-C Copy to: Simona Mendez PA-C, [facility] Kolby Boston PA-C, [facility] [place]. ?? documented in this encounter Plan of Treatment Scheduled Referrals Name Type Priority Associated Diagnoses Order [facility] Physical Therapy Referral Routine Fibromyalgia Ordered: 02/14/2019 Chronic pain of left knee Chronic bilateral low back pain, with sciatica presence unspecified documented as of this encounter Results Extractable Nuclear Antigen Antibodies (02/14/2019 4:59 PM CDT) P athologist Signature NGUYEN/PULVERIZER 1 0 - 40 02/16/2019 [facility] (AGUILA) Ab, IGG AU/mL 4:12 PM CDT LABORATORIES Comment: INTERPRETIVE INFORMATION: Nguyen/PULVERIZER (AGUILA ) Antibody, IgG ??29 AU/mL or Less ............. Negati ve ??30 - 40 AU/mL ................ Equivo zenaida ??41 AU/mL or Greater .......... Positi ve Nguyen/PULVERIZER antibodies are frequently seen in patients with mixed connective tissue disease (MCTD) and are also associated with other systemic autoimmune rheumatic dise ases (SARDs) such as systemic lupus erythematosus (SLE), syst emic sclerosis, and myositis. Antibodies targeting the Nguyen /PULVERIZER antigenic complex also recognize Nguyen antigens, therefore , the Nguyen antibody response must be considered when interpr eting these results. Performed by [facility], [address] [place] [id number] [facility], Crow Duran MD, Lab. Director AGUILA To Nguyen (Sm) 0 0 - 40 AU/mL 02/16/2019 4:12 PM CDT [facility] Antibody Comment: INTERPRETIVE INFORMATION: Nguyen (AGUILA) An [...] 40 AU/mL 02/16/2019 4:1 2 PM CDT [facility] (AGUILA) Comment: INTERPRETIVE INFORMATION: SSB (La) [...] - 40 AU/mL 02/16/2019 4:12 PM CDT [facility] IGG (AGUILA) Comment: REFERENCE INTERVAL: SSA-60 (Ro60) [...] Zaira Ortiz PA-C LAB_1 Performing Organization Address City/[facility] Phon e Number [facility] [address] [phone] CCPIG - Cyclic Citrullinated Peptide AB (02/14/2019 4:59 PM CDT) [facility] Method Time Signature Anti-CCP Antibody 1 [...] Zaira Ortiz PA-C LAB_1 Performing Organization Address City/[facility] Phon e Number [facility] [address] [address] DNA - Anti-dsDNA Antibody (02/14/2019 4:59 PM CDT) [facility] Method Time Signature Anti-DNA Ab <1:10 <1:10 02/17/2019 [facility] 10:51 AM LABORATORY CDT Anti-DNA Antibody Negative Negative 02/17/2019 [facility] Interpretation 10:51 AM LABORATORY CDT Specimen Anatomical Collection Method / Collection Time Recei steven Time (Source) Location / Volume Laterality Blood Venipuncture / 02/14/2019 4:59 02/14/2019 4:59 Unknown PM CDT PM CDT Zaira Ortiz PA-C LAB_1 Performing Organization Address [facility] Phon e Number [facility] [address] [place] [address] C4 - C4 Complement (02/14/2019 4:59 PM CDT) athologist Signature C4 Complement 51.0 15.0 - 02/14/2019 [facility] 57.0 mg/dL 9:30 PM CDT LABORATORY Specimen Anatomical Collection Method / Collection Time Recei steven Time (Source) Location / Volume Laterality Blood Venipuncture / 02/14/2019 4:59 02/14/2019 4:59 Unknown PM CDT PM CDT Zaira Ortiz PA-C LAB_1 Performing Organization Address [facility] Phon e Number [facility] [address] [place] [address] C3 - C3 Complement (02/14/2019 4:59 PM CDT) athologist Signature C3 Complement 158 83 - 193 02/14/2019 [facility] mg/dL 9:30 PM CDT LABORATORY Specimen Anatomical Collection Method / Collection Time Recei steven Time (Source) Location / Volume Laterality Blood Venipuncture / 02/14/2019 4:59 02/14/2019 4:59 Unknown PM CDT PM CDT Zaira Ortiz PA-C LAB_1 Performing Organization Address [facility] Phon e Number [facility] [address] [place] [address] documented in this encounter Visit Diagnoses Diagnosis [...] iridocyclitis documented in this encounter Care Teams Building Manager Relationship Specialty Start Date End Date Shore, Chirag L, PA-C PCP - General Physician Sanitary Inspector 07/06/16 [address] [place] [address] documented as of this encounter
--- OUTSIDE RECORDS SUMMARY | 2022-04-03 07:05 | XMS_ITS | Encounter Summary ---
:1970 Author Organization [employer] Address [address] [place] [address] Care Team Providers Name Role Phone Chirag Metzger PA-C Primary Care Provider Reason for Visit Reason Comments NECK PAIN BACK PAIN BACK PAIN, LOW Encounter Details Date Type Department Care Team Description 04/01/2018 Office Visit [facility] [place], Segmental and somatic dysfun ction of cervical region; [address] Enoc Lazaro DC Segmental and somatic dysfun ction of thoracic region; [place] [address] Segmental and somatic dysfun ction of sacral region; [phone] Cervical pain ( neck); Acute thoracic back [...] Blanca DC - 04/01/2018 10:00 AM CST Subjective Keara Cuellar is 43 [...] 3 TIMES PER DAY. Enoc Blanca DC PREPARER documented in this encounter Plan of Treatment [...] back documented in this encounter Care Teams Stacker Driver Relationship Specialty Start Date End Date Chirag Metzger PA-C PCP - General Physician Pediatric Occupational Therapist 07/06/[address] [place] [address] documented as of this encounter
--- OUTSIDE RECORDS SUMMARY | 2022-04-03 07:05 | XMS_ITS | Encounter Summary ---
:1970 Author Organization [employer] Address [address] [place] [address] Care Team Providers Name Role Phone Chirag Metzger PA-C Primary Care Provider Reason for Visit Reason Comments Future Appointments Encounter Details Date Type Department Care Team Description 03/24/2019 Telephone Special[facility] Center [address], Future Appointments [facility]hthalmology Clinic [facility]. [address] [place] [address] [place], [place] [phone] (Wo rk) Social History Tobacco Use Types [...] Dr Cruz out she was referred to [facility] NESS CONTINUITY SPECIALIST Herson Granados - 03/24/2019 1:42 PM CST Appointments - Same Day / Future Patient would like appointment with: Any Provider Encounter Clinician: Cinda Dumont MD Patient requesting appointment for: Glaucoma Exam. Patient said she has cloudy right eye and when pressure is up, both eyes get cloudy. [facility]. The first available appointment is on 04/24/19 and she saysshe cannot wait that long because her health insurance will international exchange coordinator. She would like be called if someone cancels their appointment. She would prefer to see Dr. Cinda Dumont if possible, she is her father's doctor. Wants/Needs to be seen within: 1 week(s) Is it okay to leave detailed message on your voicemail? Yes Herson Granados NESS CONTINUITY SPECIALIST documented in this encounter Plan of Treatment Not on filedocumented as of this encounter Visit Diagnoses Not on filedocumented in this encounter Care Teams Steam Turbine Assembler Relationship Specialty Start Date End Date Chirag Metzger PA-C PCP - General Physician Leasing Machine Tender 07/06/16 [place] [address] documented as of this encounter
--- OUTSIDE RECORDS SUMMARY | 2022-04-03 07:05 | XMS_ITS | Encounter Summary ---
:1970 Author Organization [employer] Address [address] [place] [address] Care Team Providers Name Role Phone Chirag [...] dysfun ction of thoracic region; [place] [address] Segmental and somatic dysfun ction of sacral region; [phone] Cervicalgia; Pain in thoraci c spine; Low [...] Blanca DC - 02/26/2018 7:15 AM CDT Subjective Keara Cuellar is 43 [...] non-specific documented in this encounter Care Teams Pickling Solution Maker Relationship Specialty Start Date End Date Chirag Metzger PA-C PCP - General Physician Electronic Lab Technician 07/06/16 [address] [place] [address] documented as of this encounter
--- OUTSIDE RECORDS SUMMARY | 2022-04-03 07:05 | XMS_ITS | Encounter Summary ---
:1970 Author Organization [employer] Address [address] [place] [address] Care Team Providers Name Role Phone Chirag Metzger PA-C Primary Care Provider Reason for Visit Reason Comments NECK PAIN BACK PAIN BACK PAIN, LOW HEADACHE Encounter Details Date Type Department Care Team Description 03/05/2018 Office Visit [facility] [place], Segmental and somatic dysfun ction of cervical region (Primary Dx); [address] Enoc Lazaro DC Segmental and somatic dysfun ction of thoracic region; [place] [address] Segmental and somatic dysfun ction of sacral region; [phone] Cervicalgia; Pain in thoraci c spine; Low back pain, non-specific Social History Tobacco Use Types Packs/Day Years Used Date Smoking Tobacco: Never Smokeless Tobacco: Never Alcohol Use Standard Drinks/Week Comments Yes 3 (1 standard drink = 0.6 oz pure alcoho l) Sex Assigned at Date Recorded Not on file documented as of this encounter Progress Notes Enoc Blanca DC - 03/05/2018 7:15 AM CDT Marla Cuellar is 43 [...] non-specific documented in this encounter Care Teams Forge Shop Machine Repairer Relationship Specialty Start Date End Date Chirag Metzger PA-C PCP - General Physician Family Medicine Physician 07/06/16 [address] [place], [place] [address] documented as of this encounter
--- OUTSIDE RECORDS SUMMARY | 2022-04-03 07:05 | XMS_ITS | Encounter Summary ---
:1970 Author Organization [facility] Address [address] [place] [address] Care Team Providers Name Role Phone Chirag Metzger PA-C Primary Care Provider Reason for Visit Procedure/Equipment (Routine) - Incomplete Specialty Diagnoses / Procedures Referred By Contact Refer red To Contact Diagnoses Visit for screening mammogram Simona Mendez PA-C Procedures MM Mammogram Screening Bilat W 3D Larry W CAD [address] [place] [address] Referral ID Status Reason Start Date Expiration Date Visits V isits Requested Authorized [id number] Incomplete 12/04/2018 03/04/2020 1 1 Encounter Details Date Type Department Care Team Description 03/28/2019 Ancillary Procedure [place] [facility] Vanessa, Jourdan fo r screening Mammography Services Simona Redmond PA-C mammogram [address] [place] [address] W [phone] [place] [address] Social History Tobacco Use Types [...] mammogram documented in this encounter Care Teams Animal Sitter Relationship Specialty Start Date End Date Chirag Metzger PA-C PCP - General Physician Investment Banker 07/06/16 [address] [place], [place] [address] documented as of this encounter
--- OUTSIDE RECORDS SUMMARY | 2022-04-03 07:05 | XMS_ITS | Encounter Summary ---
:1970 Author Organization [employer] Address [address] [place] [address] Care Team Providers Name Role Phone Chirag Metzger PA-C Primary Care Provider Reason for Visit Reason Comments NECK PAIN BACK PAIN BACK PAIN, LOW Encounter Details Date Type Department Care Team Description 11/12/2018 Office Visit [facility] [place], Segmental and somatic dysfun ction of cervical region; [address] Enoc Lazaro DC Segmental and somatic dysfun ction of thoracic region; [place] [address] Segmental and somatic dysfun ction of sacral region; [phone] Cervical pain ( neck); Acute thoracic back [...] non-specific documented in this encounter Care Teams Process Technician Relationship Specialty Start Date End Date Chirag Metzger PA-C PCP - General Physician Game Show Host 07/06/16 [address] [place], [place] [id number] documented as of this encounter
--- OUTSIDE RECORDS SUMMARY | 2022-04-03 07:05 | XMS_ITS | Encounter Summary ---
:1970 Author Organization [facility] Address [address] [place] [address] Care Team Providers Name Role Phone Constantino Metzger PA-C Primary Care Provider Reason for Visit Reason Comments Refill IBU 800 MG tablet [Pharmacy Med Name: IBU Oral Tablet 800 MG] Encounter Details Date Type Department Care Team Description 04/20/2019 Refill [facility] Constantino Viera PA-C Refill (IBU [address] tablet [[place] [address] [place] [address] Name: IBU Oral Tablet [phone] (Wo rk) 800 MG]) Social History Tobacco [...] with Celebrex. FYI sent to PCP and mr teacher. ITAL CHAPLAIN Constantino Metzger PA-C - 04/24/2019 2:05 PM CST It appears that her mr teacher had given her Celebrex prescription in January and asked her tostop other anti-inflammatories. She had sent in a refill request for the Celebrex earlier this week.Should not be taking both ibuprofen and Celebrex. Which one would she like prescription for? ITAL CHAPLAIN Nilam Acosta RN - 04/24/2019 9:15 AM [...] times a day as needed for Pain. ITAL CHAPLAIN Ryanne Ward RN - 04/22/2019 3:29 PM CST Further Assistance Needed on Refill from Nursing/Triage Requested medication was discontinued Next steps: Nursing/Triage to complete refill as appropriate. Requested Prescriptions Pending Prescriptions Disp Refills ??? IBU 800 MG tablet [Pharmacy Med Name: IBU Oral Tablet 800 MG] 45 Tablet Sig: Take 1 Tablet by mouth three times a day as needed for Pain. ITAL CHAPLAIN Micaela, Out Surescripts Prov Query - 04/20/2019 2:48 PM CST IBU 800 MG tablet [Pharmacy Med Name: IBU Oral Tablet 800 MG] Medication started: 03/04/2014 Last ordered by CONSTANTINO METZGER: 03/06/2018 (410 days ago) QTY: 45, [...] unreadable information. Last qualifying visit: 03/06/2018 (with CONSTANTINO METZGER) Next scheduled visit: None SBP: 132 mm Hg on 03/06/2018 DBP: 82 mm Hg on 03/06/2018 Cr: 0.8 mg/dL on 03/06/2018 PLT: 321 k/cmm on 03/06/2018 HGB: 13 g/dL on 03/06/2018 RBC: 4.45 m/cmm on 03/06/2018 RDW: 11.8 % on 03/06/2018 Hematocrit: 39.7 % on 03/06/2018 White Blood Cell Count: 7.7 k/cmm on 03/06/2018 Powered by [employer], Reference: [id number], 04/20/2019 2:48:29 PM [facility], Pool: DAVID REFILL ([id number]) ITAL CHAPLAIN documented in this encounter Plan of Treatment [...] classified documented in this encounter Care Teams Spot Checker Relationship Specialty Start Date End Date Constantino Metzger PA-C PCP - General Physician Illuminating Engineer 07/06/16 [address] [place], [place] [address] documented as of this encounter
--- OUTSIDE RECORDS SUMMARY | 2022-04-03 07:05 | XMS_ITS | Encounter Summary ---
:1970 Author Organization [employer] Address [address] [place] [address] Care Team Providers Name Role Phone Chirag Metzger PA-C Primary Care Provider Reason for Visit Reason Comments NECK PAIN BACK PAIN BACK PAIN, LOW Encounter Details Date Type Department Care Team Description 06/19/2019 Office Visit [facility] [place], Segmental and somatic dysfun ction of cervical region; [address] Enoc Lazaro DC Segmental and somatic dysfun ction of thoracic region; [place] [address] Segmental and somatic dysfun ction of sacral region; [phone] Cervical pain ( neck); Acute thoracic back [...] 3 TIMES PER DAY. Enoc Blanca DC ONAL ADMINISTRATIVE ASSISTANT documented in this encounter Plan of Treatment [...] non-specific documented in this encounter Care Teams Preschool Assistant Teacher Relationship Specialty Start Date End Date Chirag Metzger PA-C PCP - General Physician Real Estate Instructor 07/06/16 [address] [place] [address] documented as of this encounter
--- OUTSIDE RECORDS SUMMARY | 2022-04-03 07:05 | XMS_ITS | Encounter Summary ---
:1970 Author Organization [employer] Address [address] [place] [address] Care Team Providers Name Role Phone Chirag Metzger PA-C Primary Care Provider Reason for Visit Reason Comments Future Appointments Encounter Details Date Type Department Care Team Description 03/24/2019 Telephone Specialty Center [address], Future Appointments [facility]hthalmology Clinic [facility]. [address] [facility] [place] [place] [address] [place], [place] [phone] (Wo rk) Social History Tobacco Use Types [...] cloudy. She saw doctor Dr. Prakash at [facility]. Patient says she cannot wait until 04/24/19 to see an eye doctor.She would like an earlier date because her health insurance will change room attendant. She wants to be calledif someone cancels their appointment. She specifically asked for Dr. Cinda Dumont and would like to see her if possible because she is her father's eye doctor. Wants/Needs to be seen within: 1 week(s) Is it okay to leave detailed message on your voicemail? Yes Herson Granados ING SHOVEL OILER documented in this encounter Plan of Treatment Not on filedocumented as of this encounter Visit Diagnoses Not on filedocumented in this encounter Care Teams Title I Paraprofessional Relationship Specialty Start Date End Date Chirag Metzger PA-C PCP - General Physician Social Media Developer 07/06/[address] [place] [address] documented as of this encounter
--- OUTSIDE RECORDS SUMMARY | 2022-04-03 07:05 | XMS_ITS | Encounter Summary ---
:1970 Author Organization [employer] Address [address] [place] [address] Care Team Providers Name Role Phone Chirag Metzger PA-C Primary Care Provider Reason for Visit Reason Comments Consult, New Patient Encounter Details Date Type Department Care Team Description 10/23/2018 Initial Consult Bob Do M D Fibromyalgia (Primary Dx); Rheumatology [address] [place] [address] Chronic pain of left knee; [address] [facility] Chronic pain syndrome [address] [phone] [address] Social History Tobacco Use Types Packs/Day Years [...] Body Mass Index 36.62 07/06/2016 8:17 AM CALCULUS PROFESSOR documented in this encounter Patient Instructions Patient InstructionsKenBob bloom MD - 10/23/2018 10:30 AM CDT Images [...] in helping patients better manage chronic pain. Xjf-vxtozvuyin-rmtbs treatments An exercise program is an essential [...] pool. Many community pools such as the [facility] offer ???fibrocize?? water aerobics programs. A [...] PhD, Torie Pappas M.Ed, LP, Psychologist at [facility] [Chronic pain (headaches, fibromyalgia, etc.) and irritable bowel syndrome - evaluation and treatment], and Sid Genao, Ph.D., LP, Psychologist at [facility] (Chronic pain evaluation). Patients may schedule appointments [...] strengthening can help in someinstances, as can urgent care technician. Warm water pool physical therapy at places like the [facility] and [facility] can be prescribed by your physician, [...] trigger points can be injected by your Phthalic Acid Purifier or other providers with a mixture of [...] internal organs. Resources ??? National Fibromyalgia Association [phone] www.fmaware.org ??? National [place] of Arthritis and Musculoskeletal and Skin Diseases [phone] www.niams.nih.gov ??? [facility] [phone] www.[facility].nih.gov ??? [facility] (Water aerobics, heated pool to 91 degrees) [address] [place], [place]; charges apply. What else can be tried? Sometimes, for a minority of patients, the above interventions do not result in control of fibromyalgia. In these cases, you should consider a chronic pain program. Several of these and additional resources are listed below: [facility]), a nursing practice for fibromyalgia patients, has opened at [address] [facility], to serve [facility] clientele. Daisy Orr, RN, CLAY MINER and Nilam Iverson MS, RN, are the founders and co-owners. [phone] [facility], Dr. Vlad Ramos , [address] [place] [phone] [facility] [address], [place] [address] Also offices in [place] and [place]. , [email or web address] [facility] - Aquatic Therapy: [facility], [facility]. [email or web address] [address] [place] [address] Outpatient therapy: (physical, occupational and speech therapy; charter and tour bus driver evaluations) Initial appointment: [phone]; Follow-up appointment: [phone] Aquatic therapy, Sayra Potter [phone] [facility], [email or web address]://www.[facility].[employer]/, [address] [facility] [address], . [facility] - Pain Management [address] [place] [address] Appointments: [phone] [facility] [email or web address]://www.[email or web address] shore healthGrow Mobile.[employer]/contact- us/locations/james/ [id number], [address], [place] [address]; Also a location in [place]. [facility] [phone] [address] [facility] [address] [place] [address] [facility] - they focus more on back pain, but offer cognitive behavioral therapy. [facility] [phone] [facility] [phone], [address] [facility], [address], [place] [address] Liang Owusu MD [phone], personalization specialist, [address] [address] [facility] (will treat fibromyalgia and chronic pain syndrome in additionto head & neck disorders; also have MedX equipment for chronic back pain). [email or web address] ??? [place]: [address] [facility], [address], [address]; [phone] ??? [place]: [address] [facility], [address], [address]; [phone] ??? [place]: [address] [facility], [address]; [phone] ??? [place]: [address], [address]; [phone] [facility] - At [place] [...] symptoms and improve quality of life. Location: [place] Providers: Occupational Therapists with specialty training. Program: [...] Increase understanding - provide education 4. Use vsqy-janf-fnvztp therapies to reframe pain/symptom experience 5. Modify [...] This note was generated with voice activated global chief experience officer software and may contain typographical and word substitution errors. Consultation was requested by: Simona Mendez PA-C, [facility] [place], for arthritis HPI: She is a 48-year-old female. She has been seen in the chiropractic department for chronic neck thoracic and back pain. She also has a history of chronic pelvic and rectal pain. Lumbosacral x-ray August, was normal. I received a large packet, likely over 100 pages of records from [facility] which were reviewed. In July,, white count [...] injuries. She has seen Dr. Perez at [facility]. She has chronic left knee pain, had a surgery inNov2017. There has been some concern she might have underlying autoimmune disease. She was recommended to see rheumatology. Her left knee pain has been noted to be chronic since arthroscopic procedure in March,. She notes some clicking and anterior knee pain. I see [facility] for possible chronic regional pain syndrome following her arthroscopy. She had beginning in the past lidocaine patches, she does not tolerate NSAIDs. She had initially been seen at [facility] for her left knee arthroscopy. The original arthroscopy was done because ofchronic left knee pain and a periarticular ganglion cyst. She has a history of some other issues including mechanical low back pain, left shoulder impingement, she has had prior cortisone injection foranserine bursitis of the knee and orthopedic and fracture clinic. She had seen Dr. 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 Multiple questions answered. Simona Mendez PA-C, [facility] copy to Oh Perez MD, [facility], CHASITY Sapp copy to Kolby Boston PA-C, [facility] [place]. TT 60 min, at least 30 min spend counselling and educating on the issues as noted above documented in this encounter Plan of Treatment Not on filedocumented as of this encounter Visit Diagnoses Diagnosis Fibromyalgia - Primary Mylagia and myositis, unspecified Chronic pain of left knee Pain in joint, lower leg Chronic pain syndrome documented in this encounter Care Teams Warp Knitting Machine Operator Relationship Specialty Start Date End Date Chirag Metzger PA-C PCP - General Physician Cloud Solutions Architect 07/06/[address] [place] [id number] documented as of this encounter
--- OUTSIDE RECORDS SUMMARY | 2022-04-03 07:05 | XMS_ITS | Encounter Summary ---
:1970 Author Organization [facility] Address [address] [place] [address] Care Team Providers Name Role Phone Chirag Metzger PA-C Primary Care Provider Reason for Visit Procedure/Equipment (Routine) - Incomplete Specialty Diagnoses / Procedures Referred By Contact Refer red To Contact Diagnoses Visit for screening Chirag Metzger PA-C Procedures MM Mammogram Screening Bilat W CAD [address] [place] [address] [address] Referral ID Status Reason Start Date Expiration Date Visits V isits Requested Authorized [id number] Incomplete 02/27/2018 05/29/2019 1 1 Encounter Details Date Type Department Care Team Description 03/20/2018 Imaging [place] Mammograp Chirag Metzger PA-C Visit for screening [address] [address] [place] [address] [phone] (Wo rk) Social History Tobacco Use Types [...] condition documented in this encounter Care Teams Claim Inspector Relationship Specialty Start Date End Date Chirag Metzger PA-C PCP - General Physician Head Of Ethics And Compliance 07/06/16 [address] [place], [place] [address] documented as of this encounter
--- OUTSIDE RECORDS SUMMARY | 2022-04-03 07:05 | XMS_ITS | Encounter Summary ---
:1970 Author Organization [facility] Address [address] [place] [address] Care Team Providers Name Role Phone Chirag Metzger PA-C Primary Care Provider Reason for Referral (Routine) - New Request Specialty Diagnoses / Procedures Referred By Contact Refer red To Contact Diagnoses Effusion of right knee Bob Lind MD Procedures Triamcinolone Acet Inj Nos: (per 10 mg) [address] [place], [place] [address] Referral ID Status Reason Start Date Expiration Date Visits V isits Requested Authorized [id number] New Request 02/16/2021 05/18/2022 1 1 Procedure/Equipment (Routine) - Incomplete Specialty Diagnoses / Procedures Referred By Contact Refer red To Contact Diagnoses Effusion of right knee Bilateral chronic knee pain Bob Lind MD Procedures MR Knee Rt WO IV Cont [address] [place], [place] [address] Referral ID Status Reason Start Date Expiration Date Visits V isits Requested Authorized [id number] Incomplete 02/16/2021 08/15/2021 1 1 Procedure/Equipment (Routine) - Incomplete Specialty Diagnoses / Procedures Referred By Contact Refer red To Contact Diagnoses Bilateral chronic knee pain Bob Lind MD Procedures MR Knee Lt WO IV Cont [address] [place], [place] [address] Referral ID Status Reason Start Date Expiration Date Visits V isits Requested Authorized [id number] Incomplete 02/16/2021 08/15/2021 1 1 Reason for Visit Reason Comments Follow-up Encounter Details Date Type Department Care Team Description 02/16/2021 Office Visit Bob Do M D Effusion of right knee (Primary Dx); Rheumatology [address] [facility] Bilateral chronic knee pain; [address] [facility] Fibromyalgia; [place] [address] [place], [place] FELIPE positive; [phone] Elevated C-reactive protein (CRP) [phone] (Wo rk) Social History Tobacco Use Types [...] This note was generated with voice activated test automation architect software and may contain typographical and word [...] trying Cymbalta. I also recommended followingup with [facility], she was on opioids at the time. There was a history of an arthroscopy on the left knee in the past done because of periarticular ganglion cyst. She had background history of mechanical back pain, left shoulder impingement. Fluid had been aspirated from the knee and was straw-colored. Her primary care I believe was at [facility], Simona Mendez PA-C. The patient [...] pattern, SSA, Nguyen, Scl 70, chromatin antibody, COREMAKER EXPERIMENTAL, double-stranded DNA were all negative. 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 FH: Has a sister and brother with [...] she may need to do these through [facility]. By her report x-rays were negative and [place]. I put my fax number on the MRI requests so I can receive a report. If degenerative process is confirmed, the patient would be asked to follow-up with orthopedics and she would probably do that through [facility]. Simona Mendez PA-C, [facility], [facility]. Total time 45 minutes, excluding time for [...] athologist Signature Body Fluid 1 % 02/16/2021 [facility] Neutrophils % 6:13 PM CDT LABORATORY Body Fluid 85 % 02/16/2021 [facility] Lymphocytes % 6:13 PM CDT LABORATORY Body Fluid 14 % 02/16/2021 [facility] Mononuclear 6:13 PM CDT LABORATORY Cells % TOTAL CELLS 100 02/16/2021 [facility] COUNTED IN BODY 6:13 PM CDT LABORATORY FLUID Specimen Anatomical Collection Method Collection Time Receive d Time (Source) Location / / Volume Laterality Synovial Fluid ENTIRE KNEE REGION 02/16/2021 1:02 PM 0 02/16/2021 1:38 / Unknown CDT PM CDT Bob Lind MD LAB_1 Performing Organization Address City/[facility] Phon e Number [facility] [address] [place] [address] (ABNORMAL) Cell Count, Body Fluid (02/16/2021 1:02 PM CDT) [facility] gist Method Time Signature Body Fluid Synovial 02/16/2021 [facility] Type Fluid 6:13 PM CDT LABORATORY BF Source Knee, right 02/16/2021 [facility] 6:13 PM CDT LABORATORY Body Fluid Clear Clear 02/16/2021 [facility] Appearance 6:13 PM CDT LABORATORY Body Fluid RBC <=2,000 /uL 02/16/2021 [facility] 6:13 PM CDT LABORATORY Comment: The reference interval is unava ilable for this body fluid. Comparison of the result with concentration in the blood i s recommended. Body Fluid WBC 483 (H) 0 - 200 /ul 02/16/2021 6:13 PM CDT [facility] Specimen Anatomical Collection Method Collection Time Receive d Time (Source) Location / / Volume Laterality Synovial Fluid ENTIRE KNEE REGION 02/16/2021 1:02 PM 0 02/16/2021 1:38 / Unknown CDT PM CDT Bob Lind MD LAB_1 Performing Organization Address City/[facility]/ZIP Code Phon e Number [facility] [address] [place] [address] LYPCR - Borrelia Burgdorferi (Lyme Disease) (02/16/2021 1:02 PM CDT) [facility] Method Time Signature Lyme By PCR Not Detected 02/19/2021 [facility] 11:23 AM CDT LABORATORIES Comment: NOT DETECTED [...] and its performa nce characteristics determined by [facility]. It has not been cleared or approved by the US Food and Drug Adminis tration. This test was performed in a CLIA certified laboratory and is intended for clinical purposes. Performed by [facility], [address] [place] [address] [email or web address], Lakeshia Mtz MD, La b. Director Lyme Source Synovial fluid 02/19/2021 11:23 AM CDT [facility] [employer] Specimen Anatomical Collection Method Collection Time Receive d Time (Source) Location / / Volume Laterality Synovial Fluid 02/16/2021 1:02 PM 021 1:38 CDT PM CDT Bob Lind MD LAB_1 Performing Organization Address [facility] Phon e Number [facility] [address] [place], [place] [address] SYCRY - Synovial Fluid Crystals (02/16/2021 1:02 PM CDT) [facility] Method Time Signature Synovial Knee, right 02/16/2021 [facility] Source 7:02 PM CDT LABORATORY Crystals, No Crystals No Crystals 02/16/2021 [facility] Synovial Seen Seen 7:02 PM CDT LABORATORY Specimen Anatomical Collection Method Collection Time Receive d Time (Source) Location / / Volume Laterality Synovial Fluid ENTIRE KNEE REGION 02/16/2021 1:02 PM 0 02/16/2021 1:38 / Unknown CDT PM CDT Bob Lind MD LAB_1 Performing Organization Address City/State/ZIP Code Phon e Number [facility] [address] [place] [address] documented in this encounter Visit Diagnoses Diagnosis Effusion of right knee - Primary Effusion of lower leg joint Bilateral chronic knee pain Pain in joint, lower leg Fibromyalgia Mylagia and myositis, unspecified FELIPE positive Other and unspecified nonspecific immuno logical findings Elevated C-reactive protein (CRP) documented in this encounter Care Teams Install Technician Relationship Specialty Start Date End Date Chirag Metzger PA-C PCP - General Physician Knobber 07/06/16 [address] [place] [address] documented as of this encounter
--- OUTSIDE RECORDS SUMMARY | 2022-04-03 07:05 | XMS_ITS | Encounter Summary ---
:1970 Author Organization [employer] Address [address] [place] [address] Care Team Providers Name Role Phone Chirag Metzger PA-C Primary Care Provider Encounter Details Date Type Department Care Team Description 02/13/2019 Notes/Orders [facility] [place] [id number] [place] [address] [phone] (Wo rk) Social History Tobacco Use Types Packs/Day Years Used Date Smoking Tobacco: Never Smokeless Tobacco: Never Alcohol Use Standard Drinks/Week Comments Yes 3 (1 standard drink = 0.6 oz pure alcoho l) Sex Assigned at Date Recorded Not on file documented as of this encounter Progress Notes Bob Lind MD - 02/13/2019 6:17 AM CDT I received a note from the [facility] and [facility]. 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 It was felt systemic disease should be ruled out. A panel of labs was suggested including inflammatory markers, Lyme screen, HLA B27, angiotensin-converting enzyme, RPR/VDRL, fluorescent treponemal antibody. The patient had been seen by Simona Mendez PA-C at [facility] on February 10. She had woken up [...] CDT February 13, 2019 Simona Mendez PA-C [facility] RE: Keara Ward : 1970 Dear Simona: [...] but many cases are not. Typically a resource protection specialist would get involved when the uveitis cannot [...] or concerns. Sincerely, Bob Lind MD [facility] Department of Rheumatology CONFIRM #: [id number] documented in this encounter Plan of Treatment Not on filedocumented as of this encounter Visit Diagnoses Not on filedocumented in this encounter Care Teams Players Assistant Relationship Specialty Start Date End Date Chirag Metzger PA-C PCP - General Physician Rehab Office Coordinator 07/06/[address] [address] [address] documented as of this encounter
--- OUTSIDE RECORDS SUMMARY | 2022-04-03 07:05 | XMS_ITS | Encounter Summary ---
:1970 Author Organization [employer] Address [address] [place] [address] Care Team Providers Name Role Phone Chirag Metzger PA-C Primary Care Provider Reason for Visit Reason Comments NECK PAIN BACK PAIN BACK PAIN, LOW HEADACHE Encounter Details Date Type Department Care Team Description 07/09/2018 Office Visit [facility], Segmental and somatic dysfun ction of cervical region; [address] Enoc Lazaro DC Segmental and somatic dysfun ction of thoracic region; [place] [address] Segmental and somatic dysfun ction of sacral region; [phone] Cervical pain ( neck); Acute thoracic back [...] encounter Progress Notes Enoc Blanca DC - 07/09/2018 7:15 AM CST Subjective Keara Cuellar is 43 [...] 3 TIMES PER DAY. Enoc Blanca DC YMAN documented in this encounter Plan of Treatment [...] back documented in this encounter Care Teams Child And Family Counselor Relationship Specialty Start Date End Date Chirag Metzger PA-C PCP - General Physician Forest Logistics Manager 07/06/[address] [address] [address] documented as of this encounter
--- OUTSIDE RECORDS SUMMARY | 2022-04-03 07:05 | XMS_ITS | Encounter Summary ---
:1970 Author Organization [employer] Address [address] [place] [address] Care Team Providers Name Role Phone Chirag Metzger PA-C Primary Care Provider Reason for Visit Reason Comments PHONE CALL TO PATIENT Encounter Details Date Type Department Care Team Description 02/14/2019 Telephone [facility] [address], PHON E CALL TO PATIENT Rheumatology [place] [address] [place] [phone] (Wo rk) Social History Tobacco Use Types [...] call back, regarding appointment this afternoon in [place]. Please see letter written 02/13/[address] Lind documented in this encounter Plan of Treatment Not on filedocumented as of this encounter Visit Diagnoses Not on filedocumented in this encounter Care Teams Mechanical Project Manager Relationship Specialty Start Date End Date Chirag Metzger PA-C PCP - General Physician Box Covering Machine Operator 07/06/[address] [address] documented as of this encounter
--- OUTSIDE RECORDS SUMMARY | 2022-04-03 07:05 | XMS_ITS | Encounter Summary ---
:1970 Author Organization [employer] Address [address] [place] [address] Care Team Providers Name Role Phone Chirag Metzger PA-C Primary Care Provider Encounter Details Date Type Department Care Team Description 02/19/2019 Notes/Orders [facility] [address] Deanne Ortiz PA-C Rheumatology [address] [place] [address] [place], [place] [address] [phone] Social History Tobacco Use Types Packs/Day Years [...] on filedocumented in this encounter Care Teams Cushion Builder Relationship Specialty Start Date End Date Chirag Metzger PA-C PCP - General Physician Casket Trimmer 07/06/[address] [id number] documented as of this encounter
--- OUTSIDE RECORDS SUMMARY | 2022-04-03 07:05 | XMS_ITS | Encounter Summary ---
:1970 Author Organization [employer] Address [address] [place] [address] Care Team Providers Name Role Phone Chirag Metzger PA-C Primary Care Provider Reason for Referral (Routine) - Closed Specialty Diagnoses / Procedures Referred By Contact Refer red To Contact Diagnoses Screen for colon cancer Chirag Metzger PA-C Procedures Endoscopy, colon, diagnostic [address] [address] [address] Referral ID Status Reason Start Date Expiration Date Visits Requ ested Visits Authorized [id number] Closed 01/21/2019 04/21/2020 1 1 Encounter Details Date Type Department Care Team Description 01/21/2019 Notes/Orders [place] [facility] Chirag Metzger, Screen for colon [address] PA-C cancer (Primary Dx) [address] [address] [address] [phone] [place] [address] Social History Tobacco Use [...] colon documented in this encounter Care Teams Morning Babysitter Relationship Specialty Start Date End Date Chirag Metzger PA-C PCP - General Physician Excavation Laborer 07/06/16 [address] [place] [address] documented as of this encounter
--- OUTSIDE RECORDS SUMMARY | 2022-04-03 07:05 | XMS_ITS | Encounter Summary ---
:1970 Author Organization [employer] Address [address] [place] [address] Care Team Providers Name Role Phone Chirag [...] dysfun ction of thoracic region; [place] [phone] Segmental and somatic dysfun ction of sacral region; [phone] Cervical pain ( neck); Acute thoracic back [...] non-specific documented in this encounter Care Teams Truck Loader Overhead Crane Relationship Specialty Start Date End Date Chirag Metzger PA-C PCP - General Physician Dock Loader 07/06/16 [address] [place] [address] documented as of this encounter
--- OUTSIDE RECORDS SUMMARY | 2022-04-03 07:05 | XMS_ITS | Encounter Summary ---
:1970 Author Organization [email or web address] Address [address] [place] [address] Care Team Providers Name Role Phone Chirag Metzger PA-C Primary Care Provider Reason for Visit Reason Comments NECK PAIN BACK PAIN BACK PAIN, LOW HEADACHE Encounter Details Date Type Department Care Team Description 07/12/2018 Office Visit [facility] [place], Segmental and somatic dysfun ction of cervical region; [address] En[place] Lazaro DC Segmental and somatic dysfun ction of thoracic region; [place] [address] Segmental and somatic dysfun ction of sacral region; [phone] Cervical pain ( neck); Acute thoracic back [...] Blanca DC - 07/12/2018 11:45 AM CST Subjective Keara Cuellar is 43 [...] 3 TIMES PER DAY. Enoc Blanca DC NCIAL SERVICES INTERN documented in this encounter Plan of Treatment [...] back documented in this encounter Care Teams Clinical Pharmacist Relationship Specialty Start Date End Date Chirag Metzger PA-C PCP - General Physician Dormitory Maid 07/06/16 [address] [place], [place] [address] documented as of this encounter
--- OUTSIDE RECORDS SUMMARY | 2022-04-03 07:05 | XMS_ITS | Encounter Summary ---
:1970 Author Organization [employer] Address [address] [place] [address] Care Team Providers Name Role Phone Chirag Metzger PA-C Primary Care Provider Reason for Visit Reason Comments NECK PAIN BACK PAIN BACK PAIN, LOW Encounter Details Date Type Department Care Team Description 10/31/2018 Office Visit [facility] [place], Segmental and somatic dysfun ction of cervical region; [address] [facility] Enoc Lazaro DC Segmental and somatic dysfun ction of thoracic region; [place] [address] Segmental and somatic dysfun ction of sacral region; [phone] Cervical pain ( neck); Acute thoracic back [...] encounter Progress Notes Enoc Blanca DC - 10/31/2018 9:30 AM CDT Marla Cuellar is 43 yr [...] pain laterality 6. Low back pain, non-specific 7. Spasm of back muscles Plan: Diagnostic [...] back documented in this encounter Care Teams Bank Cashier Relationship Specialty Start Date End Date Chirag Metzger PA-C PCP - General Physician Soil Field Technician 07/06/[address] [place] [id number] documented as of this encounter
--- OUTSIDE RECORDS SUMMARY | 2022-04-03 07:05 | XMS_ITS | Encounter Summary ---
:1970 Author Organization [employer] Address [address] [place] [address] Care Team Providers Name Role Phone Chirag Metzger PA-C Primary Care Provider Reason for Visit Reason Comments NECK PAIN BACK PAIN BACK PAIN, LOW HEADACHE Encounter Details Date Type Department Care Team Description 04/05/2018 Office Visit [facility] [place], Segmental and somatic dysfun ction of cervical region; [address] Enoc Lazaro DC Segmental and somatic dysfun ction of thoracic region; [place] [address] Segmental and somatic dysfun ction of sacral region; [phone] Cervical pain ( neck); Acute thoracic back [...] Blanca DC - 04/05/2018 10:30 AM CST Marla Cuellar is 43 yr [...] 3 TIMES PER DAY. Enoc Blanca DC GER SITE documented in this encounter Plan of Treatment [...] back documented in this encounter Care Teams Branch Service Representative Relationship Specialty Start Date End Date Chirag Metzger PA-C PCP - General Physician Canadian Bacon Tier 07/06/[address] [place] [id number] documented as of this encounter
--- OUTSIDE RECORDS SUMMARY | 2022-04-03 07:05 | XMS_ITS | Encounter Summary ---
:[address] [facility] Address [address] [place] [address] Care Team Providers Name Role Phone Chirag Metzger PA-C Primary Care Provider Reason for Visit Reason Comments Refill Encounter Details Date Type Department Care Team Description 04/20/2019 Refill [facility] Zaira Anthony PA-C Refill [address] [place] [id number] [place] [address] [phone] (Wo rk) Social History Tobacco Use Types [...] for Celebrex ?? Denied per patients request ET HEADER Zaira Ortiz PA-C - 04/21/2019 12:47 PM CST I am not familiar with the AVISE test, this is not a standardized test that we routinely perform forthe diagnosis of lupus here at [facility] or elsewhere that I am aware [...] up with her primary care provider locally. ET HEADER Carla Edmondson RN - 04/21/2019 12:14 PM CST 02-14-2019 [facility] None Patient is overdue for monitoring labs Nurse placed standing lab orders Nurse telephoned patient. Patient states she does not want this refilled. She wants to wait and talkto Dr. Mendez, who is her physician in [place]. It is important that we get all [...] Capsule by mouth two times a day. ET HEADER documented in this encounter Plan of Treatment Not on filedocumented as of this encounter Visit Diagnoses Diagnosis Encounter for long-term (current) use of other medications - Primary documented in this encounter Care Teams Hand Clipper Relationship Specialty Start Date End Date Chirag Metzger PA-C PCP - General Physician Senior Manufacturing Technician 07/06/16 [address] [place], [place] [id number] documented as of this encounter
--- OUTSIDE RECORDS SUMMARY | 2022-04-03 07:06 | XMS_ITS | Encounter Summary ---
:1970 Author Organization [employer] Address [address] [place] [address] Care Team Providers Name Role Phone Padmini Park PA-C Primary Care Provider Encounter Details Date Type Department Care Team Description 10/28/2015 Imaging [facility]-Ultrasound [address] [facility] , [address] [place] [address] Social History Tobacco Use [...] by phone message and viaMyChart. Dr. Hernandez E HISTORICAL SOCIETY DIRECTOR documented in this encounter Miscellaneous Notes Miscellaneous - 06/28/2016 5:27 PM CSTNotes Recorded by Reed Hernandez MD on 10/29/2015 at 8:20 AMPatient notified of normal pelvic ultrasound following hysterectomy result by phone message and via MyChart.Dr. Hernandez E HISTORICAL SOCIETY DIRECTOR documented in this encounter Plan of Treatment [...] hysterectomy result by phone message and via Moonbasa.Dr. Hernandez Reed Hernandez MD [facility] documented in this encounter Visit Diagnoses Diagnosis Female pelvic pain Unspecified symptom associated with fema le genital organs documented in this encounter Care Teams Plastic Cablemaking Machine Operator Relationship Specialty Start Date End Date Padmini Park PA-C PCP - General Family Practice 04/05/12 01/19/16 documented as of this encounter
--- OUTSIDE RECORDS SUMMARY | 2022-04-03 07:06 | XMS_ITS | Encounter Summary ---
:1970 Author Organization [employer] Address [address] [place] [address] Care Team Providers Name Role Phone Padmini Park PA-C Primary Care Provider Reason for Visit Reason Comments NECK PAIN BACK PAIN BACK PAIN, LOW Encounter Details Date Type Department Care Team Description 09/21/2015 Office Visit [facility], Cervical (neck) region somat ic dysfunction (Primary Dx); [address] [facility] [address] Enoc Lazaro DC Nonallopathic lesion of thor acic region; [place] [address] Somatic dysfunction of sacra l region; [phone] Cervicalgia; Spasm of muscle ; Headache(784.0) Social History Tobacco Use Types Packs/Day Years Used Date Smoking Tobacco: Never Smokeless Tobacco: Never Alcohol Use Standard Drinks/Week Comments Yes 0 (1 standard drink = 0.6 oz pure alcoho l) occasional Sex Assigned at Date Recorded Not on file documented as of this encounter Progress Notes Enoc Blanca DC - 09/21/2015 10:35 AM CDT Marla Cuellar is 43 yr [...] Headache documented in this encounter Care Teams Extract Puller Relationship Specialty Start Date End Date Padmini Park PA-C PCP - General Family Practice 04/05/12 01/19/16 documented as of this encounter
--- OUTSIDE RECORDS SUMMARY | 2022-04-03 07:06 | XMS_ITS | Encounter Summary ---
:1970 Author Organization [employer] Address [address] [place] [address] Care Team Providers Name Role Phone Chirag Metzger PA-C Primary Care Provider Reason for Visit Reason Comments NECK PAIN BACK PAIN BACK PAIN, LOW Encounter Details Date Type Department Care Team Description 05/10/2017 Office Visit [facility], Segmental and somatic dysfun ction of cervical region (Primary Dx); [address] Enoc Lazaro DC Segmental and somatic dysfun ction of thoracic region; [place] [address] Segmental and somatic dysfun ction of sacral region; [phone] Cervicalgia; Pain in thoraci c spine; Low [...] 3 TIMES PER DAY. Enoc Blanca DC WARE INSTALLATION COORDINATOR documented in this encounter Plan of Treatment [...] Lumbago documented in this encounter Care Teams Laundry Or Dry Cleaners Counter Clerk Relationship Specialty Start Date End Date Chirag Metzger PA-C PCP - General Physician Residential Insurance Inspector 07/06/[address] [place] [id number] documented as of this encounter
--- OUTSIDE RECORDS SUMMARY | 2022-04-03 07:06 | XMS_ITS | Encounter Summary ---
:1970 Author Organization [employer] Address [address] [place] [address] Care Team Providers Name Role Phone Padmini Park PA-C Primary Care Provider Reason for Visit Reason Comments Refill Encounter Details Date Type Department Care Team Description 12/15/2015 Refill Chirag Chopra PA-C Refill [address] [place] [address] [place] [address] [phone] (Wo rk) Social History Tobacco Use Types Packs/Day Years Used Date Smoking Tobacco: Never Smokeless Tobacco: Never Alcohol Use Standard Drinks/Week Comments Yes 0 (1 standard drink = 0.6 oz pure alcoho l) occasional Sex Assigned at Date Recorded Not on file documented as of this encounter Nursing Notes User, Refillmontrell - 12/18/2015 4:04 PM CDT ibuprofen (MOTRIN) [...] - WBC: 9.8k/cmm on 09/11/2013 Powered by [employer], Reference: [id number], 12/15/2015 7:22:55 PM CDT, Pool: DAVID REFILL ([id number]) T RECRUITER Rolanda Gagnon, RN - 12/18/2015 4:04 PM [...] on filedocumented in this encounter Care Teams Sales Associate Key Holder Relationship Specialty Start Date End Date Padmini Park PA-C PCP - General Family Practice 04/05/12 01/19/16 documented as of this encounter
--- OUTSIDE RECORDS SUMMARY | 2022-04-03 07:06 | XMS_ITS | Encounter Summary ---
:1970 Author Organization [facility] Address [address] [place] [address] Care Team Providers Name Role Phone Chirag Metzger PA-C Primary Care Provider Reason for Visit Reason Comments Dental Conversion [facility] to [place] convers ion Encounter Details Date Type Department Care Team Description 10/26/2016 Dental Conversion [facility], In E [facility] Dental Conversion [address] [place], [place] [id number] Social History Tobacco Use Types Packs/Day Years [...] on filedocumented in this encounter Care Teams Flexographic Press Plate Setter Relationship Specialty Start Date End Date Chirag Metzger PA-C PCP - General Physician Metal Welder 07/06/[address] [id number] documented as of this encounter
--- OUTSIDE RECORDS SUMMARY | 2022-04-03 07:06 | XMS_ITS | Encounter Summary ---
:1970 Author Organization [employer] Address [address] [place] [address] Care Team Providers Name Role Phone Padmini Park PA-C Primary Care Provider Reason for Visit Reason Comments Appt. Needed Symptoms Encounter Details Date Type Department Care Team Description 10/25/2015 Nurse Triage [facility] Indio Hernandez MD Appt. Needed; Services-MAILROOM SUPERVISOR [address] [facility] Symptoms [address] [place], [place] [address] [address] [place], [place] [phone] (Wo rk) [address] [phone] Social History Tobacco Use Types Packs/Day Years Used Date Smoking Tobacco: Never Smokeless Tobacco: Never Alcohol Use Standard Drinks/Week Comments Yes 0 (1 standard drink = 0.6 oz pure alcoho l) occasional Sex Assigned at Date Recorded Not on file documented as of this encounter Nursing Notes Liss Cho, RN - 10/25/2015 2:03 PM CDT Protocol: ABDOMINAL PAIN - [id number] Affirmative: Patient wants to be seen Disposition [...] on filedocumented in this encounter Care Teams House Wirer Helper Relationship Specialty Start Date End Date Padmini Park PA-C PCP - General Family Practice 04/05/12 01/19/16 documented as of this encounter
--- OUTSIDE RECORDS SUMMARY | 2022-04-03 07:06 | XMS_ITS | Encounter Summary ---
:1970 Author Organization [employer] Address [address] [place] [address] Care Team Providers Name Role Phone Chirag Metzger PA-C Primary Care Provider Reason for Visit Reason Comments NECK PAIN BACK PAIN BACK PAIN, LOW Encounter Details Date Type Department Care Team Description 12/25/2016 Office Visit [facility] [place], Segmental and somatic dysfun ction of cervical region (Primary Dx); [address] [facility] [address] Enoc Lazaro DC Segmental and somatic dysfun ction of thoracic region; [place] [address] Segmental and somatic dysfun ction of sacral region; [phone] Cervicalgia; Pain in thoraci c spine; Low back pain ( [facility]) Social History Tobacco Use Types Packs/Day Years Used Date Smoking Tobacco: Never Smokeless Tobacco: Never Alcohol Use Standard Drinks/Week Comments Yes 3 (1 standard drink = 0.6 oz pure alcoho l) Sex Assigned at Date Recorded Not on file documented as of this encounter Progress Notes Enoc Blanca DC - 12/25/2016 8:30 AM CDT Subjective Keara Cuellar is 43 yr female here for Chief Complaint Patient presents with ??? NECK PAIN ??? BACK PAIN ??? BACK PAIN, LOW Onset of neck pain with headaches, mid back and low back pain that started last weeks. Improvment. Review of systems: Denies numbness, tingling, or [...] to the sacroiliac, thoracic and cervical regions. Brief manual therapy was applied to the soft tissue in the lumbar, sacroiliac and hip regions. Patient tolerated treatment well. Goals: Resolve current [...] Lumbago documented in this encounter Care Teams Hot Metal Crane Operator Relationship Specialty Start Date End Date Chirag Metzger PA-C PCP - General Physician Stamp Redemption Clerk 07/06/16 [address] [place] [address] documented as of this encounter
--- OUTSIDE RECORDS SUMMARY | 2022-04-03 07:06 | XMS_ITS | Encounter Summary ---
:1970 Author Organization [employer] Address [address] [place] [address] Care Team Providers Name Role Phone Padmini Park PA-C Primary Care Provider Reason for Visit Reason Comments NECK PAIN BACK PAIN BACK PAIN, LOW HEADACHE Encounter Details Date Type Department Care Team Description 04/03/2016 Office Visit [facility], Segmental and somatic dysfun ction of cervical region (Primary Dx); [address] Enoc Lazaro DC Segmental and somatic dysfun ction of thoracic region; [place] [address] Segmental and somatic dysfun ction of sacral region; [phone] Cervicalgia; Spasm of back m uscles; Headache, unspe cified headache type Social History Tobacco Use Types Packs/Day Years Used Date Smoking Tobacco: Never Smokeless Tobacco: Never Alcohol Use Standard Drinks/Week Comments Yes 3 (1 standard drink = 0.6 oz pure alcoho l) Sex Assigned at Date Recorded Not on file documented as of this encounter Progress Notes Enoc Blanca DC - 04/03/2016 7:29 AM CST Subjective Keara Cuellar is 43 [...] 3 TIMES PER DAY. Enoc Blanca DC QUALITY TECHNICIAN documented in this encounter Plan of [...] type documented in this encounter Care Teams Rubber Goods Assembler Relationship Specialty Start Date End Date Padmini Park PA-C PCP - General 01/20/16 07/05/16 documented as of this encounter
--- OUTSIDE RECORDS SUMMARY | 2022-04-03 07:06 | XMS_ITS | Encounter Summary ---
:1970 Author Organization [employer] Address [address] [place] [address] Care Team Providers Name Role Phone Padmini Park PA-C Primary Care Provider Reason for Visit Reason Comments NECK PAIN BACK PAIN BACK PAIN, LOW Encounter Details Date Type Department Care Team Description 09/02/2015 Office Visit [facility], Segmental and somatic dysfun ction of cervical region (Primary Dx); [address] En[place] Lazaro DC Segmental and somatic dysfun ction of thoracic region; [place] [address] Segmental and somatic dysfun ction of sacral region; [phone] Cervical pain ( neck); Spasm of back [...] back documented in this encounter Care Teams Digital Sales Assistant Relationship Specialty Start Date End Date Padmini Park PA-C PCP - General Family Practice 04/05/12 01/19/16 documented as of this encounter
--- OUTSIDE RECORDS SUMMARY | 2022-04-03 07:06 | XMS_ITS | Encounter Summary ---
:1970 Author Organization [employer] Address [address] [place] [address] Care Team Providers Name Role Phone Chirag Metzger PA-C Primary Care Provider Reason for Visit Reason Comments NECK PAIN BACK PAIN BACK PAIN, LOW Encounter Details Date Type Department Care Team Description 10/25/2017 Office Visit [facility], Segmental and somatic dysfun ction of cervical region (Primary Dx); [address] [facility] [facility] [address] En[place] Lazaro DC Segmental and somatic dysfun ction of thoracic region; [place] [address] Segmental and somatic dysfun ction of sacral region; [phone] Cervicalgia; Pain in thoraci c spine; Low [...] Blanca DC - 10/25/2017 3:45 PM CDT Subjective Keara Cuellar is 43 [...] non-specific documented in this encounter Care Teams Land Checker Relationship Specialty Start Date End Date Chirag Metzger PA-C PCP - General Physician Assistant Winemaker 07/06/16 [address] [place] [address] documented as of this encounter
--- OUTSIDE RECORDS SUMMARY | 2022-04-03 07:06 | XMS_ITS | Encounter Summary ---
:1970 Author Organization [employer] Address [address] [place] [address] Care Team Providers Name Role Phone Chirag Metzger PA-C Primary Care Provider Encounter Details Date Type Department Care Team Description 07/06/2016 Lab Visit [facility] Annual physical exam [address] [place], [place] [id number] Social History Tobacco Use Types Packs/Day Years [...] exa m Results for this DIRECT LDL(IF LADDER OPERATOR procedure are in NEEDED) the results section. documented in this encounter Results (ABNORMAL) Lipid Panel - LDLD If Trig High (07/06/2016 8:50 AM LADDER OPERATOR) [facility] Method Time Signature Cholesterol 209 (H) [...] / Volume Laterality 07/06/2016 8:50 AM 7 LADDER OPERATOR 11:13 AM LADDER OPERATOR Narrative PN SOFT - 07/06/2016 12:31 PM LADDER OPERATOR Performed at [facility], [address] [place] [address] CLIA number [id number] Chirag Metzger PA-C LAB_1 Performing Organization Address City/State/ZIP Code Phon e Number PN SOFT [address] [place] [address] [phone] documented in this encounter Visit Diagnoses Diagnosis Annual physical exam Routine general medical examination at a health care facility documented in this encounter Care Teams Leather Tooler Relationship Specialty Start Date End Date Chirag Metzger PA-C PCP - General Physician Jointer Machine 07/06/16 [address] [place] [id number] documented as of this encounter
--- OUTSIDE RECORDS SUMMARY | 2022-04-03 07:06 | XMS_ITS | Encounter Summary ---
:1970 Author Organization [employer] Address [address] [place] [address] Care Team Providers Name Role Phone Chirag [...] dysfun ction of thoracic region; [place] [address] Segmental and somatic dysfun ction of sacral region; [phone] Cervicalgia; Pain in thoraci c spine; Low [...] TIMES PER DAY. Enoc Blanca DC GER DIGITAL documented in this encounter Plan of Treatment [...] Lumbago documented in this encounter Care Teams Dry House Worker Relationship Specialty Start Date End Date Chirag Metzger PA-C PCP - General Physician Shape Carver 07/06/16 [address] [place], [place] [address] documented as of this encounter
--- OUTSIDE RECORDS SUMMARY | 2022-04-03 07:06 | XMS_ITS | Encounter Summary ---
:1970 Author Organization [employer] Address [address] [place] [address] Care Team Providers Name Role Phone Padmini Park PA-C Primary Care Provider Reason for Visit Reason Comments NECK PAIN BACK PAIN Encounter Details Date Type Department Care Team Description 04/17/2016 Office Visit [facility] [place] Segmental and somatic dysfun ction of cervical region (Primary Dx); [address] En[place] DC Segmental and somatic dysfun ction of thoracic region; [place] [address] Segmental and somatic dysfun ction of sacral region; [phone] Cervicalgia; Spasm of back m uscles Social History Tobacco Use Types Packs/Day Years Used Date Smoking Tobacco: Never Smokeless Tobacco: Never Alcohol Use Standard Drinks/Week Comments Yes 3 (1 standard drink = 0.6 oz pure alcoho l) Sex Assigned at Date Recorded Not on file documented as of this encounter Progress Notes Enoc Blanca DC - 04/17/2016 7:51 AM CST Marla Cuellar is 43 yr [...] 3 TIMES PER DAY. Enoc Blanca DC ARATION SUPERVISOR FREEZING documented in this encounter Plan of Treatment [...] back documented in this encounter Care Teams Pharmacy Technician Program Director Relationship Specialty Start Date End Date Padmini Park PA-C PCP - General 01/20/16 07/05/16 documented as of this encounter
--- OUTSIDE RECORDS SUMMARY | 2022-04-03 07:06 | XMS_ITS | Encounter Summary ---
:1970 Author Organization [employer] Address [address] [place] [address] Care Team Providers Name Role Phone Chirag [...] dysfun ction of thoracic region; [place] [address] Segmental and somatic dysfun ction of sacral region; [phone] Cervicalgia; Pain in thoraci c spine; Low [...] Blanca DC - 08/17/2016 1:39 PM CDT Subjective Keara Cuellar is 43 [...] Lumbago documented in this encounter Care Teams Rn Managed Care Relationship Specialty Start Date End Date Chirag Metzger PA-C PCP - General Physician Cataract Lens Generator 07/06/16 [address] [place], [place] [address] documented as of this encounter
--- OUTSIDE RECORDS SUMMARY | 2022-04-03 07:06 | XMS_ITS | Encounter Summary ---
:1970 Author Organization [employer] Address [address] [place] [address] Care Team Providers Name Role Phone Chirag [...] dysfun ction of thoracic region; [place] [address] Segmental and somatic dysfun ction of sacral region; [phone] Cervicalgia; Pain in thoraci c spine; Low [...] Blanca DC - 09/28/2016 7:31 AM CDT Subjective Keara Cuellar is 43 [...] Lumbago documented in this encounter Care Teams Buffing Wheel Raker Relationship Specialty Start Date End Date Chirag Metzger PA-C PCP - General Physician Feedmobile Driver 07/06/16 [address] [place] [address] documented as of this encounter
--- OUTSIDE RECORDS SUMMARY | 2022-04-03 07:06 | XMS_ITS | Encounter Summary ---
:1970 Author Organization [employer] Address [address] [place] [address] Care Team Providers Name Role Phone Chirag Metzger PA-C Primary Care Provider Reason for Visit Reason Comments NECK PAIN BACK PAIN BACK PAIN, LOW Encounter Details Date Type Department Care Team Description 11/02/2016 Office Visit [facility] [place], Segmental and somatic dysfun ction of cervical region (Primary Dx); [address] [facility] [address] En[place]az[place] DC Segmental and somatic dysfun ction of thoracic region; [place] [address] Segmental and somatic dysfun ction of sacral region; [phone] Cervicalgia; Pain in thoraci c spine; Low back pain ( [facility]) Social History Tobacco Use Types Packs/Day Years Used Date Smoking Tobacco: Never Smokeless Tobacco: Never Alcohol Use Standard Drinks/Week Comments Yes 3 (1 standard drink = 0.6 oz pure alcoho l) Sex Assigned at Date Recorded Not on file documented as of this encounter Progress Notes Enoc Blanca DC - 11/02/2016 7:45 AM CDT Subjective Keara Cuellar is 43 [...] Lumbago documented in this encounter Care Teams Hadoop Application Developer Relationship Specialty Start Date End Date Chirag Metzger PA-C PCP - General Physician Commissary Clerk 07/06/16 [address] [place] [address] documented as of this encounter
--- OUTSIDE RECORDS SUMMARY | 2022-04-03 07:06 | XMS_ITS | Encounter Summary ---
:1970 Author Organization [email or web address] Address [address] [place] [address] Care Team Providers Name Role Phone Padmini Park PA-C Primary Care Provider Reason for Visit Reason Comments NECK PAIN BACK PAIN BACK PAIN, LOW Encounter Details Date Type Department Care Team Description 07/30/2015 Office Visit [facility] Cervical (neck) region somat ic dysfunction (Primary Dx); [address] Enoc Lazaro DC Nonallopathic lesion of thor acic region; [place] [phone] Somatic dysfunction of sacra l region; [phone] Cervicalgia; Spasm of muscle Social History Tobacco [...] 3 TIMES PER DAY. Enoc Blanca DC [place] documented in this encounter Plan of Treatment [...] muscle documented in this encounter Care Teams Leak Patcher Relationship Specialty Start Date End Date Padmini Park PA-C PCP - General Family Practice 04/05/12 01/19/16 documented as of this encounter
--- OUTSIDE RECORDS SUMMARY | 2022-04-03 07:06 | XMS_ITS | Encounter Summary ---
:1970 Author Organization [employer] Address [address] [place] [address] Care Team Providers Name Role Phone Padmini Park PA-C Primary Care Provider Encounter Details Date Type Department Care Team Description 02/02/2016 Imaging [facility] Visit for screening [address] [place] [address] Social History Tobacco Use Types [...] Associated Diagnosis Comme nts MM MAMMOGRAM Routine 02/02/2016 8:06 AM Visit for screening Re sults for this SCREENING BILAT W CDT mammogram procedure are in CAD the results section. documented in this encounter Results MM Mammogram Screening Bilat W CAD (02/02/2016 8:06 AM CDT) Anatomical Region Laterality Modality Breast Bilateral Mammography Specimen (Source) Anatomical Location Collection Method / Collectio n Time Received Time / Laterality Volume Impressions 02/02/2016 9:39 AM CDT : ACR BI-RADS 1 Negative (overall) RECOMMENDATION: Follow Up Imaging in 12 months - Bilateral The results and recommendations of this examination will be communicated to the patient. Narrative 02/02/2016 9:39 AM CDT MM MAMMOGRAM SCREENING BILAT W CAD performed on 02/02/16 Compared to: 01/13/2015 MM Mammogram Scr eening Bilat W CAD, 01/07/2014 MM Mammogram Screening Bilat W CAD, 013 MM Mammogram Screening Bilat W CAD FINDINGS: Bilateral screening mammogram was performed with the assistance of Computer-Aided Detection. The breasts have scattered areas of fibroglandular density. There is no radiographic evidence of mal ignancy. ?? Chirag Metzger PA-C [facility] documented in this encounter Visit Diagnoses Diagnosis Visit for screening mammogram Other screening mammogram documented in this encounter Care Teams Income Tax Adjuster Relationship Specialty Start Date End Date Padmini Park PA-C PCP - General 01/20/16 07/05/16 documented as of this encounter
--- OUTSIDE RECORDS SUMMARY | 2022-04-03 07:06 | XMS_ITS | Encounter Summary ---
:1970 Author Organization [employer] Address [address] [place] [address] Care Team Providers Name Role Phone Padmini Park PA-C Primary Care Provider Reason for Visit Reason Comments CONSULT Encounter Details Date Type Department Care Team Description 10/28/2015 Initial Consult [facility] Reed Hernandez End ometriosis (Primary Dx); Services-MOLD CLAMPER Female pelvic pain [address], [address] [address] Social History Tobacco Use [...] Body Mass Index 30.18 07/21/2015 10:45 AM CAREER AND TRANSITION TEACHER documented in this encounter Progress Notes Reed [...] may result . Please contact me via [employer] message if you note any errors requiring [...] organs documented in this encounter Care Teams Flavoring Oil Filterer Relationship Specialty Start Date End Date Padmini Park PA-C PCP - General Family Practice 04/05/12 01/19/16 documented as of this encounter
--- OUTSIDE RECORDS SUMMARY | 2022-04-03 07:06 | XMS_ITS | Encounter Summary ---
:1970 Author Organization [employer] Address [address] [place] [address] Care Team Providers Name Role Phone Chirag Metzger PA-C Primary Care Provider Reason for Visit Reason Comments Refill Encounter Details Date Type Department Care Team Description 03/24/2017 Refill Chirag Chopra PA-C Refill [address] [place] [address] [place] [address] [phone] (Wo rk) Social History Tobacco Use Types Packs/Day Years Used Date Smoking Tobacco: Never Smokeless Tobacco: Never Alcohol Use Standard Drinks/Week Comments Yes 3 (1 standard drink = 0.6 oz pure alcoho l) Sex Assigned at Date Recorded Not on file documented as of this encounter Nursing Notes Chirag Metzger PA-C - 03/28/2017 4:47 PM CST faxed OMER PRICING MANAGER Farheen Navarro RN - 03/28/2017 4:34 PM CST Further assistance needed to complete refill request Reason: Please advise on continued use. Medication last ordered 09/10/15 for #30 and 3 refills. Last visit [...] NOT DRIVE WITHIN 8 HOURS OF TAKING. OMER PRICING MANAGER documented in this encounter Plan of Treatment Not on filedocumented as of this encounter Visit Diagnoses Diagnosis Rectal pain, chronic Anal or rectal pain Chronic pelvic pain in female Unspecified symptom associated with fema le genital organs documented in this encounter Care Teams Regional Program Manager Relationship Specialty Start Date End Date Chirag Metzger PA-C PCP - General Physician Community Health Educator 07/06/16 [address] [place] [address] documented as of this encounter
--- OUTSIDE RECORDS SUMMARY | 2022-04-03 07:06 | XMS_ITS | Encounter Summary ---
:1970 Author Organization [employer] Address [address] [place] [address] Care Team Providers Name Role Phone Chirag [...] dysfun ction of thoracic region; [place] [address] Segmental and somatic dysfun ction of sacral region; [phone] Cervicalgia; Pain in thoraci c spine; Low [...] Lumbago documented in this encounter Care Teams Weight Count Operator Relationship Specialty Start Date End Date Chirag Metzger PA-C PCP - General Physician Director Of Counseling 07/06/16 [address] [place], [place] [address] documented as of this encounter
--- OUTSIDE RECORDS SUMMARY | 2022-04-03 07:06 | XMS_ITS | Encounter Summary ---
:1970 Author Organization [email or web address] Address [address] [place] [address] Care Team Providers Name Role Phone Padmini [...] lesion of thor acic region; [place] [address] Somatic dysfunction of sacra l region; [phone] Cervicalgia; Spasm of muscle ; Headache(784.0) Social History Tobacco Use Types Packs/Day Years Used Date Smoking Tobacco: Never Smokeless Tobacco: Never Alcohol Use Standard Drinks/Week Comments Yes 0 (1 standard drink = 0.6 oz pure alcoho l) occasional Sex Assigned at Date Recorded Not on file documented as of this encounter Progress Notes Enoc Blanca DC - 09/10/2015 10:35 AM CDT Marla Cuellar is 43 yr female here for Chief Complaint Patient presents with ??? NECK PAIN ??? BACK PAIN ??? BACK PAIN, LOW ??? HEADACHE Onset of neck pain with headaches, mid back and low back pain that started yesterday.. Same.08/28 Review of systems: Denies numbness, tingling, or [...] Headache documented in this encounter Care Teams Bag Machine Tender Relationship Specialty Start Date End Date Padmini Park PA-C PCP - General Family Practice 04/05/12 01/19/16 documented as of this encounter
--- OUTSIDE RECORDS SUMMARY | 2022-04-03 07:06 | XMS_ITS | Encounter Summary ---
:1970 Author Organization [facility] Address [address] [place] [address] Care Team Providers Name Role Phone Chirag Metzger PA-C Primary Care Provider Reason for Visit Procedure/Equipment (Routine) - Incomplete Specialty Diagnoses / Procedures Referred By Contact Refer red To Contact Diagnoses Visit for screening Naila [place] MD Procedures MM Mammogram Screening [facility] [address] [place] [address] Referral ID Status Reason Start Date Expiration Date Visits V isits Requested Authorized [id number] Incomplete 02/06/2017 05/08/2018 1 1 Encounter Details Date Type Department Care Team Description 02/21/2017 Imaging [place] [facility] Naila [place] MD Visit for screening [address], [place] [address] [place] [address] [phone] (Wo rk) Social History Tobacco Use Types [...] condition documented in this encounter Care Teams Phthalic Acid Purifier Relationship Specialty Start Date End Date Chirag Metzger PA-C PCP - General Physician Screening Tech 07/06/16 [address] [place] [address] documented as of this encounter
--- OUTSIDE RECORDS SUMMARY | 2022-04-03 07:06 | XMS_ITS | Encounter Summary ---
:1970 Author Organization [employer] Address [address] [place] [address] Care Team Providers Name Role Phone Chirag Metzger PA-C Primary Care Provider Reason for Visit Reason Comments NECK PAIN BACK PAIN BACK PAIN, LOW Encounter Details Date Type Department Care Team Description 08/08/2016 Office Visit [facility], Segmental and somatic dysfun ction of cervical region (Primary Dx); [address] Enoc Lazaro DC Segmental and somatic dysfun ction of thoracic region; [place] [address] Segmental and somatic dysfun ction of sacral region; [phone] Cervicalgia; Pain in thoraci c spine; Low [...] Blanca DC - 08/08/2016 8:26 AM CDT Subjective Keara Cuellar is 43 [...] Lumbago documented in this encounter Care Teams Electronic Die Maker Relationship Specialty Start Date End Date Chirag Metzger PA-C PCP - General Physician Cobol Mainframe Developer 07/06/16 [address] [place], [place] [address] documented as of this encounter
--- OUTSIDE RECORDS SUMMARY | 2022-04-03 07:06 | XMS_ITS | Encounter Summary ---
:1970 Author Organization [employer] Address [address] [place] [address] Care Team Providers Name Role Phone Padmini Park PA-C Primary Care Provider Reason for Visit Reason Comments NECK PAIN BACK PAIN BACK PAIN, LOW Encounter Details Date Type Department Care Team Description 05/18/2016 Office Visit [facility], Segmental and somatic dysfun ction of cervical region (Primary Dx); [address] Enoc Lazaro DC Segmental and somatic dysfun ction of thoracic region; [place] [address] Segmental and somatic dysfun ction of sacral region; [phone] Cervicalgia; Spasm of back m uscles; Headache, [...] 3 TIMES PER DAY. Enoc Blanca DC S COUNTER SALES PERSON documented in this encounter Plan of [...] type documented in this encounter Care Teams Community Theater Actor Relationship Specialty Start Date End Date Padmini Park PA-C PCP - General 01/20/16 07/05/16 documented as of this encounter
--- OUTSIDE RECORDS SUMMARY | 2022-04-03 07:06 | XMS_ITS | Encounter Summary ---
:1970 Author Organization [employer] Address [address] [place] [address] Care Team Providers Name Role Phone Padmini Park PA-C Primary Care Provider Reason for Visit Reason Comments Follow-up Encounter Details Date Type Department Care Team Description 11/25/2015 Office Visit [facility] Indio Hernandez MD Female pelvic pain (Primary Dx); Services-INSURANCE APPLICATION INVESTIGATOR [address] [place] Endometriosis [address] [facility], [address] [address] [place], [place] [phone] [address] (Work) [phone] Social History Tobacco Use Types Packs/Day Years [...] Body Mass Index 31.28 07/21/2015 10:45 AM MEN'S BASKETBALL COACH documented in this encounter Progress Notes Reed [...] visit were spent with the patient in [id number] consultation reviewing her clinical course to date. [...] may result . Please contact me via [employer] staff message if you note any errors requiring clarification. documented in this encounter Miscellaneous Notes Medication History - Benedict Amaya MD - 01/20/2016 12:00 AM CDT Infusion Synopsis from 10-28-2015 to 11-26-2015 INFUSION MEDS LEUPROLIDE (LUPRON DEPOT) IM Date Dose User 11-26-2015 04:40 PM 7.5 mg Carla L ELIZABETH MilanN SUPPORTIVE CARE MEDS LEUPROLIDE (LUPRON DEPOT) IM Date Dose User 10-28-2015 10:28 AM 3.75 mg Madeline Franks LPN documented in this encounter Plan of Treatment Not on filedocumented as of this encounter Visit Diagnoses Diagnosis Female pelvic pain - Primary Unspecified symptom associated with fema le genital organs Endometriosis Endometriosis, site unspecified documented in this encounter Care Teams Blank Driller Relationship Specialty Start Date End Date Padmini Park PA-C PCP - General Family Practice 04/05/12 01/19/16 documented as of this encounter
--- OUTSIDE RECORDS SUMMARY | 2022-04-03 07:06 | XMS_ITS | Encounter Summary ---
:1970 Author Organization [email or web address] Address [address] [place] [address] Care Team Providers Name Role Phone Padmini Park PA-C Primary Care Provider Reason for Visit Reason Comments Pre-visit Planning Encounter Details Date Type Department Care Team Description 09/20/2015 Telephone [facility], Pre-visit Planning [address] [facility] [place] [address] Social History Tobacco Use Types Packs/Day [...] OK to keep time slot. System let nursing scheduler take this slot but it may [...] on filedocumented in this encounter Care Teams Tufting Machine Fixer Relationship Specialty Start Date End Date Padmini Park PA-C PCP - General Family Practice 04/05/12 01/19/16 documented as of this encounter
--- OUTSIDE RECORDS SUMMARY | 2022-04-03 07:06 | XMS_ITS | Encounter Summary ---
:1970 Author Organization [employer] Address [address] [place] [address] Care Team Providers Name Role Phone Chirag Metzger PA-C Primary Care Provider Reason for Visit Reason Comments NECK PAIN BACK PAIN BACK PAIN, LOW Encounter Details Date Type Department Care Team Description 12/29/2016 Office Visit [facility], Segmental and somatic dysfun ction of cervical region (Primary Dx); [address] Enoc Lazaro DC Segmental and somatic dysfun ction of thoracic region; [place] [phone] Segmental and somatic dysfun ction of sacral region; [phone] Cervicalgia; Pain in thoraci c spine; Low [...] Blanca DC - 12/29/2016 10:15 AM CDT Subjective Keara Cuellar is 43 [...] Lumbago documented in this encounter Care Teams Laborer Plumbing Relationship Specialty Start Date End Date Chirag Metzger PA-C PCP - General Physician Pest Control Service Sales Agent 07/06/[address] [place] [address] documented as of this encounter
--- OUTSIDE RECORDS SUMMARY | 2022-04-03 07:06 | XMS_ITS | Encounter Summary ---
:1970 Author Organization [employer] Address [address] [place] [address] Care Team Providers Name Role Phone Chirag Metzger PA-C Primary Care Provider Reason for Visit Reason Comments NECK PAIN BACK PAIN BACK PAIN, LOW Encounter Details Date Type Department Care Team Description 06/14/2017 Office Visit [facility], Segmental and somatic dysfun ction of cervical region (Primary Dx); [address] Enoc Lazaro DC Segmental and somatic dysfun ction of thoracic region; [place] [address] Segmental and somatic dysfun ction of sacral region; [phone] Cervicalgia; Pain in thoraci c spine; Low [...] 3 TIMES PER DAY. Enoc Blanca DC IONHOLDER INFORMATION CLERK documented in this encounter Plan of Treatment [...] Lumbago documented in this encounter Care Teams Glove Sewer Relationship Specialty Start Date End Date Chirag Metzger PA-C PCP - General Physician Optical Engineering Technician 07/06/[address] [place] [address] documented as of this encounter
--- OUTSIDE RECORDS SUMMARY | 2022-04-03 07:06 | XMS_ITS | Encounter Summary ---
:1970 Author Organization [employer] Address [address] [place] [address] Care Team Providers Name Role Phone Padmini Park PA-C Primary Care Provider Reason for Visit Reason Comments Refill Encounter Details Date Type Department Care Team Description 09/10/2015 Refill Chirag Chpora PA-C Refill [address] [place] [address] [place] [address] [phone] (Wo rk) Social History Tobacco Use Types [...] the medication Pharmacy Name & Phone #: [facility] [phone] or City: [place], [place] Drug Name: Cyclobenzaprine Strength: 10 Dose/Route/Freq: NA *ECODE ONAL SALES DIRECTOR documented in this encounter Plan of Treatment Not on filedocumented as of this encounter Visit Diagnoses Diagnosis Rectal pain, chronic - Primary Anal or rectal pain Chronic pelvic pain in female Unspecified symptom associated with fema le genital organs documented in this encounter Care Teams Corduroy Cutter Operator Relationship Specialty Start Date End Date Padmini Park PA-C PCP - General Family Practice 04/05/12 01/19/16 documented as of this encounter
--- OUTSIDE RECORDS SUMMARY | 2022-04-03 07:06 | XMS_ITS | Encounter Summary ---
:1970 Author Organization [employer] Address [address] [place] [address] Care Team Providers Name Role Phone Chirag Metzger PA-C Primary Care Provider Reason for Visit Reason Comments NECK PAIN BACK PAIN BACK PAIN, LOW Encounter Details Date Type Department Care Team Description 06/01/2017 Office Visit [facility], Segmental and somatic dysfun ction of cervical region (Primary Dx); [address] Enoc Lazaro DC Segmental and somatic dysfun ction of thoracic region; [place] [address] Segmental and somatic dysfun ction of sacral region; [phone] Cervicalgia; Pain in thoraci c spine; Low [...] 3 TIMES PER DAY. Enoc Blanca DC HER SPONGER documented in this encounter Plan of Treatment [...] Lumbago documented in this encounter Care Teams Compound Filler Relationship Specialty Start Date End Date Chirag Metzger PA-C PCP - General Physician Academic Tutor 07/06/[address] [place] [address] [address] documented as of this encounter
--- OUTSIDE RECORDS SUMMARY | 2022-04-03 07:06 | XMS_ITS | Encounter Summary ---
:1970 Author Organization [employer] Address [address] [place] [address] Care Team Providers Name Role Phone Padmini Park PA-C Primary Care Provider Reason for Visit Reason Comments Refill ibuprofen (MOTRIN) 800 MG ta blet [Pharmacy Med Name: Ibuprofen Oral Tablet 800 MG] Encounter Details Date Type Department Care Team Description 02/19/2016 Refill [facility] Chirag Metzger PA-C Refill (ibuprofen [address] (MOTRIN) 800 [place] [address] [place] [address] [Pharmacy Med Name: [phone] (Wo rk) Ibuprofen Oral Tablet 800 MG]) [...] Cell Count: 9.8k/cmm on 09/11/2013 Powered by [employer], Reference: [id number], 02/19/2016 7:01:28 AM CDT, Pool: EAGEN REFILL ([id number]) documented in this encounter Plan of Treatment Not on filedocumented as of this encounter Visit Diagnoses Not on filedocumented in this encounter Care Teams Nremt Relationship Specialty Start Date End Date Padmini Park PA-C PCP - General 01/20/16 07/05/16 documented as of this encounter
--- OUTSIDE RECORDS SUMMARY | 2022-04-03 07:06 | XMS_ITS | Encounter Summary ---
:1970 Author Organization [employer] Address [address] [place] [address] Care Team Providers Name Role Phone Padmini Park PA-C Primary Care Provider Reason for Visit Reason Comments Injection Encounter Details Date Type Department Care Team Description 11/26/2015 Nursing Visit [facility] NurseAna metriouriel (Primary Services-INSECTICIDE MAKER Dx) [address] [address] Social History Tobacco Use Types Packs/Day Years Used Date Smoking Tobacco: Never Smokeless Tobacco: Never Alcohol Use Standard Drinks/Week Comments Yes 0 (1 standard drink = 0.6 oz pure alcoho l) occasional Sex Assigned at Date Recorded Not on file documented as of this encounter Progress Notes Carla Milan LPN - 11/26/2015 4:44 PM CDT Depo Lupron 3.75mg given IM Rt Delt. This dose was okd per Dr David BURGOS documented in this encounter Plan of Treatment Not on filedocumented as of this encounter Visit Diagnoses Diagnosis Endometriosis - Primary Endometriosis, site unspecified documented in this encounter Care Teams Customer Care Team Coach Relationship Specialty Start Date End Date Padmini Park PA-C PCP - General Family Practice 04/05/12 01/19/16 documented as of this encounter
--- OUTSIDE RECORDS SUMMARY | 2022-04-03 07:06 | XMS_ITS | Encounter Summary ---
:1970 Author Organization [employer] Address [address] [place] [address] Care Team Providers Name Role Phone Chirag Metzger PA-C Primary Care Provider Reason for Visit Reason Comments NECK PAIN BACK PAIN BACK PAIN, LOW Encounter Details Date Type Department Care Team Description 12/21/2016 Office Visit [facility], Segmental and somatic dysfun ction of cervical region (Primary Dx); [address] [place] Segmental and somatic dysfun ction of thoracic region; [place] [address] Segmental and somatic dysfun ction of sacral region; [phone] Cervicalgia; Pain in thoraci c spine; Low [...] Blanca DC - 12/21/2016 9:45 AM CDT Subjective Keara Cuellar is 43 [...] Lumbago documented in this encounter Care Teams Infrastructure Technician Relationship Specialty Start Date End Date Chirag Metzger PA-C PCP - General Physician Parquetry Floor Layer 07/06/16 [address] [place] [address] documented as of this encounter
--- OUTSIDE RECORDS SUMMARY | 2022-04-03 07:06 | XMS_ITS | Encounter Summary ---
:1970 Author Organization [employer] Address [address] [place] [address] Care Team Providers Name Role Phone Chirag eMtzger PA-C Primary Care Provider Reason for Referral (Routine) - Closed Specialty Diagnoses / Procedures Referred By Contact Refer red To Contact Diagnoses Screen for colon cancer Chirag Metzger PA-C Procedures Colonoscopy [address] [place] [address] Referral ID Status Reason Start Date Expiration Date Visits Requ ested Visits Authorized [id number] Closed 07/06/2016 10/05/2017 1 1 SKIVER Reason for Visit Reason Comments Annual Exam Encounter Details Date Type Department Care Team Description 07/06/2016 Office Visit Chirag Chopra, Annual physical exam (Primar y Dx); [address] PA-C Migraine without status migrainosus, not intractable, unspecified migraine type; [place] [address] Screen for colon cancer [phone] [place] [id number] Social History Tobacco Use Types Packs/Day Years Used Date Smoking Tobacco: Never Smokeless Tobacco: Never Alcohol Use Standard Drinks/Week Comments Yes 3 (1 standard drink = 0.6 oz pure alcoho l) Sex Assigned at Date Recorded Not on file documented as of this encounter Last Filed Vital Signs Vital Sign Reading Time Taken Comments Blood Pressure 126/82 07/06/2016 8:17 AM SOLE SKIVER Pulse - - Temperature - - Respiratory Rate - - Oxygen Saturation - - Inhaled Oxygen Concentration - - Weight 79.8 kg (176 lb) 07/06/2016 8:17 AM SOLE SKIVER Height 156.2 cm (5' 1.5) 07/06/2016 8:17 AM SOLE SKIVER Body Mass Index 32.72 07/06/2016 8:17 AM SOLE SKIVER documented in this encounter Progress Notes Chirag [...] Pending Prescriptions Disp Refills ??? ergocalciferol (DRISDOL) 66870 UNITS capsule 12 Cap 3 Sig: Take [...] methocarbamol, and rizatriptan. has No Known Allergies. Production Painter History: : No obstetric history on file. [...] Colonoscopy; Future Other orders - ergocalciferol (DRISDOL) 58060 UNITS capsule; Take 1 Cap by mouth [...] stage Discharged ambulatory and in stable condition. SKIVER documented in this encounter Plan of Treatment Scheduled Orders Name Type Priority Associated Diagnoses Order S chedule Colonoscopy GI Routine Screen for colon cancer 1 Oc currences starting 07/06/2016 until 9 Colonoscopy GI Routine Screen for colon cancer 1 Oc currences starting 07/06/2016 until 9 documented as of this encounter Results (ABNORMAL) Lipid Panel - LDLD If Trig High (07/06/2016 8:50 AM SOLE SKIVER) Patholo gist Method Time Signature Cholesterol 209 (H) 0 [...] / Volume Laterality 07/06/2016 8:50 AM 7 SOLE SKIVER 11:13 AM SOLE SKIVER Narrative PN SOFT - 07/06/2016 12:31 PM SOLE SKIVER Performed at [facility], [address] [place] [address] CLIA number [id number] Chirag Metzger PA-C LAB_1 Performing Organization Address City/State/ZIP Code Phon e Number PN SOFT [address] [place] [address] documented in this encounter Visit Diagnoses Diagnosis Annual physical exam - Primary Routine general medical examination at a health care facility Migraine without status migrainosus, not intractable, unspecified migraine type Screen for colon cancer Special screening for malignant neoplasm s, colon Annual physical exam Routine general medical examination at a health care facility documented in this encounter Care Teams Satellite Communications Operator Relationship Specialty Start Date End Date Chirag Metzger PA-C PCP - General Physician Salt Cutter 07/06/16 [address] [place] [id number] documented as of this encounter
--- OUTSIDE RECORDS SUMMARY | 2022-04-03 07:06 | XMS_ITS | Encounter Summary ---
:1970 Author Organization [employer] Address [address] [place] [address] Care Team Providers Name Role Phone Chirag [...] dysfun ction of thoracic region; [place] [id number] Segmental and somatic dysfun ction of sacral region; [phone] Cervicalgia; Pain in thoraci c spine; Low [...] Blanca DC - 06/18/2017 7:15 AM CST Subjective Keara Cuellar is [...] 3 TIMES PER DAY. Enoc Blanca DC UTER SCIENCE INTERN documented in this encounter Plan of [...] Lumbago documented in this encounter Care Teams In Store Marketer Relationship Specialty Start Date End Date Chirag Metzger PA-C PCP - General Physician Associate Professor Of Engineering 07/06/[address] [place] [address] documented as of this encounter
--- OUTSIDE RECORDS SUMMARY | 2022-04-03 07:07 | XMS_ITS | Encounter Summary ---
:1970 Author Organization [email or web address] Address [address] [place] [address] Care Team Providers Name Role Phone Padmini Park PA-C Primary Care Provider Reason for Visit Reason Comments Refill Encounter Details Date Type Department Care Team Description 06/06/2015 Refill Chirag Chopra PA-C Refill [address] [place] [address] [place] [address] [phone] (Wo rk) Social History Tobacco Use Types [...] BY MOUTH 3 TIMES DAILY. Authorizing Provider: HCIRAG MARTINEZ Ordering User: HOWARD AGUIRRE RACTIVE WEB DEVELOPER UserElissa - 06/08/2015 9:24 AM CST ibuprofen (MOTRIN) [...] - LAST QUALIFYING VISIT WITH CHIRAG MARTINEZ: 01/13/2015 - NEXT SCHEDULED VISIT: None - SBP: 118.0mm Hg on 01/13/2015 - DBP: 72.0mm Hg on 01/13/2015 - Cr: 0.7mg/dL on 09/11/2013 - PLT: 273.0k/cmm on 09/11/2013 - HGB: 12.7g/dL on 09/11/2013 - RBC: 4.19m/cmm on 09/11/2013 - RDW: 11.7% on 09/11/2013 - HCT: 37.6% on 09/11/2013 - WBC: 9.8k/cmm on 09/11/2013 Powered by [employer], Reference: [id number], 06/06/2015 1:29:12 PM Titus PELLETIER: DAVID REFILL ([id number]) RACTIVE WEB DEVELOPER documented in this encounter Plan of Treatment Not on filedocumented as of this encounter Visit Diagnoses Not on filedocumented in this encounter Care Teams E D Tech Relationship Specialty Start Date End Date Padmini Park PA-C PCP - General Family Practice 04/05/12 01/19/16 documented as of this encounter
--- OUTSIDE RECORDS SUMMARY | 2022-04-03 07:07 | XMS_ITS | Encounter Summary ---
:1970 Author Organization [employer] Address [address] [place] [address] Care Team Providers Name Role Phone Padmini Park PA-C Primary Care Provider Reason for Visit Reason Comments Annual Exam Encounter Details Date Type Department Care Team Description 01/13/2015 Office Visit Chirag Chopra, Annual physical exam (Primar y Dx); [address] PA-C Rectal pain, chronic; [place] [address] [address] Chronic pelvic pain in female; [phone] [place] [address] Migraine without status migrainosus, not intractable, unspecified migraine type; [phone] Screening for m alignant neoplasm of the [...] call Cervical Cancer Screening and Management Team [phone] Sincerely, Radha Rojas RN on behalf of Dr. Emmie Holcomb, Telephone Service Representative Hiral Cam Cervical Cancer Screening and Management [...] concerns: Spent the last 24 hours at [facility] for acute on chronic rectal and pelvic pain. She required Dilaudid for pain control. She is feeling extremely tiredthis morning, and pain has started to return. She saw both colorectal surgery and crane operator in consult during her hospitalization. Colorectal surgery felt there is no colorectal pathology contributing to her pain. crane operator is theorizing that she might have endometriosis. [...] schedule a follow-up with Dr. Alvarez in crane operator, as well. She would like a refill [...] rizatriptan, and tramadol. has No Known Allergies. Commercial Intelligence Manager History: : LMP: No LMP recorded. Patient [...] or Vomiting. - norethindrone-ethinyl estradiol (LOESTRIN 06/09, 21,) 1mg-20mcg per tablet; Take 1 tablet by [...] test results, callCervical Cancer Screening and Management [phone] Her, MARTITA on behalf ofDr. Emmie Holcomb, Medical DirectorPartony Cam Cervical Cancer Screening and Management ARIN CHINESE TEACHER Miscellaneous - 06/29/2016 3:28 AM CSTNotes Recorded [...] test results, callCervical Cancer Screening and Management [phone] Her, MARTITA on behalf ofDr. Emmie Holcomb, Medical DirectorPark Tutu Cervical Cancer Screening and Management ARIN CHINESE TEACHER documented in this encounter Plan of Treatment [...] - 01/20/2015 8:39 AM CDT Performed at [facility] [address] [place] [address] FINAL GYNECOLOGICAL CYTOLOGY REPORT Pathology #: [id number] ?Date Obtained: 01/13/2015 ? Date Received: 01/14/2015 [...] Radha Rojas RN on 02/09/2015 at 9:12 [facility], I am writing to let you know [...] results, call Cervical Cancer Screening and Management [phone] presley RN on behalf ofDr. Emmie Holcomb, Telephone Service Representative [facility] Cervical Cancer Screening and Management Chirag Metzger PA-C LAB_1 Performing Organization Address City/State/ZIP Code Phon e Number HP CONVERSION HPV with 16 18 Genotyping (01/13/2015 11:59 AM CDT) [facility] Method Time Signature HPV High Risk [...] and its pe rformance characteristics determined by [facility]. It has not been cleared or approved by [facility]. The laboratory is regulated under CLIA as qualified to perform high-complexity testing. This test is used for clinical purposes. It should not be regarded as investigational or fo r research. Specimen Anatomical Collection Method Collection Time Receive d Time (Source) Location / / Volume Laterality 01/13/2015 11:59 01/13/2015 AM CDT 11:59 AM CDT Narrative HP CONVERSION - 01/15/2015 2:00 PM CDT Performed at [address] [address] Transcriptions 06/29/2016 3:28 AM CSTNotes Recorded by [...] results, call Cervical Cancer Screening and Management [phone],Radha Rojas RN on behalf ofDr. Emmie Holcomb, Telephone Service Representative [facility] Cervical Cancer Screening and Management Chirag Metzger PA-C LAB_1 Performing Organization Address City/State/ZIP Code Phon e Number HP CONVERSION Pap Test Order (01/13/2015 11:59 AM CDT) [facility] Method Time Signature Pap Smear Collected HP CONVERSION Monolayer tracking test Specimen Anatomical Collection Method Collection Time Receive d Time (Source) Location / / Volume Laterality 01/13/2015 11:59 01/14/2015 5:07 AM CDT AM CDT Narrative HP CONVERSION - 01/13/2015 11:59 AM [place] [address] Chirag Metzger PA-C LAB_1 Performing Organization Address City/[facility] Code Phon e Number HP CONVERSION [...] cervix documented in this encounter Care Teams Buggy Ladle Tender Relationship Specialty Start Date End Date Padmini Park PA-C PCP - General Family Practice 04/05/12 01/19/16 documented as of this encounter
--- OUTSIDE RECORDS SUMMARY | 2022-04-03 07:07 | XMS_ITS | Encounter Summary ---
:1970 Author Organization [employer] Address [address] [place] [address] Care Team Providers Name Role Phone Padmini [...] thor acic region, not elsewhere classified; [place] [address] Nonallopathic lesion of sacr al region, not elsewhere classified; [phone] Cervicalgia; Spasm of muscle Social History Tobacco [...] muscle documented in this encounter Care Teams Dispatcher Refinery Relationship Specialty Start Date End Date Padmini Park PA-C PCP - General Family Practice 04/05/12 01/19/16 documented as of this encounter
--- OUTSIDE RECORDS SUMMARY | 2022-04-03 07:07 | XMS_ITS | Encounter Summary ---
:1970 Author Organization [employer] Address [address] [place] [address] Care Team Providers Name Role Phone Padmini Park PA-C Primary Care Provider Reason for Visit Reason Comments Vaginal Itching Encounter Details Date Type Department Care Team Description 07/21/2015 Office Visit Chirag Chopra, Vaginal itching [address] PA-C (Primary Dx) [place] [address] [address] [phone] [place] [id number] Social History Tobacco Use Types Packs/Day Years Used Date Smoking Tobacco: Never Smokeless Tobacco: Never Alcohol Use Standard Drinks/Week Comments Yes 0 (1 standard drink = 0.6 oz pure alcoho l) occasional Sex Assigned at Date Recorded Not on file documented as of this encounter Last Filed Vital Signs Vital Sign Reading Time Taken Comments Blood Pressure 118/74 07/21/2015 10:45 AM SPRING LAYER Pulse - - Temperature - - Respiratory Rate - - Oxygen Saturation - - Inhaled Oxygen Concentration - - Weight 74.8 kg (165 lb) 07/21/2015 10:45 AM SPRING LAYER Height 157.5 cm (5' 2) 07/21/2015 10:45 AM SPRING LAYER Body Mass Index 30.18 07/21/2015 10:45 AM SPRING LAYER documented in this encounter Progress Notes Chirag [...] was discharged ambulatory and in stable condition. NG LAYER documented in this encounter Plan of Treatment Not on filedocumented as of this encounter Procedures Procedure Name Priority Date/Time Associated Diagnosis Comme nts VAGINITIS PANEL, Routine 07/21/2015 10:58 AM Vaginal itching R esults for this DNA PROBE SPRING LAYER procedure are i n the results section. documented in this encounter Results (ABNORMAL) VAGINITIS PANEL, DNA PROBE (07/21/2015 10:58 AM SPRING LAYER) [facility] Method Time Signature Gardnerella Not Detected Not HP CONVERSION vaginalis Detected Amy species Detected (A) Not HP CONVERSI ON Detected Trichomonas Not Detected Not HP CONVERSION vaginalis Detected Specimen Anatomical Collection Method Collection Time Receive d Time (Source) Location / / Volume Laterality 07/21/2015 10:58 07/21/2015 2:24 AM SPRING LAYER PM SPRING LAYER Narrative HP CONVERSION - 07/21/2015 4:07 PM SPRING LAYER Performed at [facility], [address] [place] [address] CLIA number [id number] Chirag Metzger PA-C LAB_1 Performing Organization Address City/State/[facility] Code Phon e Number HP CONVERSION documented in this encounter Visit Diagnoses Diagnosis Vaginal itching - Primary Pruritus of genital organs documented in this encounter Care Teams Forensic Document Examiner Relationship Specialty Start Date End Date Padmini Park PA-C PCP - General Family Practice 04/05/12 01/19/16 documented as of this encounter
--- OUTSIDE RECORDS SUMMARY | 2022-04-03 07:07 | XMS_ITS | Encounter Summary ---
:1970 Author Organization [employer] Address [address] [place] [address] Care Team Providers Name Role Phone Padmini Park PA-C Primary Care Provider Reason for Visit Reason Comments NECK PAIN BACK PAIN BACK PAIN, LOW Encounter Details Date Type Department Care Team Description 02/26/2015 Office Visit [facility] [place] nonallopathic lesion o f cervical region (Primary Dx); [address] Enoc Lazaro [place] Nonallopathic lesion of thor acic region; [place] [address] Nonallopathic lesion of sacr al region; [phone] Cervicalgia; Spasm of muscle Social History Tobacco [...] muscle documented in this encounter Care Teams Race Steward Relationship Specialty Start Date End Date Padmini Park PA-C PCP - General Family Practice 04/05/12 01/19/16 documented as of this encounter
--- OUTSIDE RECORDS SUMMARY | 2022-04-03 07:07 | XMS_ITS | Encounter Summary ---
:1970 Author Organization [employer] Address [address] [place] [address] Care Team Providers Name Role Phone Padmini Park PA-C Primary Care Provider Reason for Visit Reason Comments NECK PAIN BACK PAIN BACK PAIN, LOW Encounter Details Date Type Department Care Team Description 03/09/2015 Office Visit [facility] [place] nonallopathic lesion o f cervical region (Primary Dx); [address] Enoc Lazaro [place] Nonallopathic lesion of thor acic region; [place] [address] Nonallopathic lesion of sacr al region; [phone] Cervicalgia; Spasm of muscle Social History Tobacco [...] muscle documented in this encounter Care Teams Office Systems Technology Instructor Relationship Specialty Start Date End Date Padmini Park PA-C PCP - General Family Practice 04/05/12 01/19/16 documented as of this encounter
--- OUTSIDE RECORDS SUMMARY | 2022-04-03 07:07 | XMS_ITS | Encounter Summary ---
:1970 Author Organization [employer] Address [address] [place] [address] Care Team Providers Name Role Phone Padmini Park PA-C Primary Care Provider Reason for Visit Reason Comments LAB RESULTS Encounter Details Date Type Department Care Team Description 07/23/2015 Telephone Chirag Chopra PA-C LAB RESULTS [address] [place] [address] [place] [address] [phone] (Wo rk) Social History Tobacco Use Types Packs/Day Years Used Date Smoking Tobacco: Never Smokeless Tobacco: Never Alcohol Use Standard Drinks/Week Comments Yes 0 (1 standard drink = 0.6 oz pure alcoho l) occasional Sex Assigned at Date Recorded Not on file documented as of this encounter Nursing Notes Juana Dinero LPN - 07/23/2015 3:33 PM CST Pt notified of below. ND GENERATOR MANAGER Chirag Metzger PA-C - 07/23/2015 3:27 PM CST I had sent her results via [facility] on 07/20, positive for yeast, Rx was faxed that day. ND GENERATOR MANAGER Sumaya Rankin LPN - 07/23/2015 3:12 PM CST Reason for Call: Lab results requested. Next Steps: Route to [facility] for patient follow up. Additional Information: Requesting result and treatment for yeast infection. Spoke to pt - she wanted her results of her yeast infection culture (vaginal probe tested positive for yeast) Will sned message onto provider for treatment. ND GENERATOR MANAGER Pat Ny - 07/23/2015 3:07 PM CST Pt requesting her lab results from Sunday. Transfer to triage. ND GENERATOR MANAGER documented in this encounter Plan of Treatment Not on filedocumented as of this encounter Visit Diagnoses Not on filedocumented in this encounter Care Teams Hand Pleater Relationship Specialty Start Date End Date Padmini Park PA-C PCP - General Family Practice 04/05/12 01/19/16 documented as of this encounter
--- OUTSIDE RECORDS SUMMARY | 2022-04-03 07:07 | XMS_ITS | Encounter Summary ---
:1970 Author Organization [employer] Address [address] [place] [address] Care Team Providers Name Role Phone Padmini Park PA-C Primary Care Provider Reason for Visit Reason Comments Other Encounter Details Date Type Department Care Team Description 01/14/2015 Telephone [facility] Eulalia Alvarez MD Other Services-INSURANCE PRODUCER [address] [facility] [address] [place] [address], [place] [address] [address] [place] [address] [phone] Social History Tobacco Use Types Packs/Day Years [...] She states that she was inpatient at [facility] on 01/12 with pelvic pain similar [...] her operative and pathology reports from her [facility] done in 2004 which indicated adhesions [...] see if fax was received? Liss Cho, MARTITA - 01/14/2015 11:18 AM CDT Pt will be faxing over today past medical records for her provider to review to see if she needs surgery in the future. Pt aware provider out of office today but back tomorrow. Pt requesting a phone call from provider to discuss POC. Keara Ward [phone] . Can be reached here at this number tomorrow or her cell number [phone]. OK to LM documented in this encounter Plan of Treatment Not on filedocumented as of this encounter Visit Diagnoses Not on filedocumented in this encounter Care Teams Yeast Cake Cutter Relationship Specialty Start Date End Date Padmini Park PA-C PCP - General Family Practice 04/05/12 01/19/16 documented as of this encounter
--- OUTSIDE RECORDS SUMMARY | 2022-04-03 07:07 | XMS_ITS | Encounter Summary ---
:1970 Author Organization [employer] Address [address] [place] [address] Care Team Providers Name Role Phone Padmini Park PA-C Primary Care Provider Encounter Details Date Type Department Care Team Description 01/13/2015 Imaging [facility] Breast cancer screening [address] [place] [address] Social History Tobacco Use Types [...] be communicated to the patient by the [facility] and we will attempt to [...] be communicated to the patient by the [facility] and we will attempt to schedule any recommended imaging follow up with the patient. Chirag Metzger PA-C RAD KVNG documented in this encounter Visit Diagnoses Diagnosis Breast cancer screening Breast screening, unspecified documented in this encounter Care Teams Diesel Engine Fitter Relationship Specialty Start Date End Date Padmini Park PA-C PCP - General Family Practice 04/05/12 01/19/16 documented as of this encounter
--- OUTSIDE RECORDS SUMMARY | 2022-04-03 07:07 | XMS_ITS | Encounter Summary ---
:1970 Author Organization [employer] Address [address] [place] [address] Care Team Providers Name Role Phone Padmini Park PA-C Primary Care Provider Reason for Visit Reason Comments Patient Calling Back Encounter Details Date Type Department Care Team Description 12/16/2014 Telephone Chirag Chopra PA-C Patient Calling Back [address] [place] [address] [place] [address] [phone] (Wo rk) Social History Tobacco Use Types [...] on filedocumented in this encounter Care Teams Boat Canvas Installer Relationship Specialty Start Date End Date Padmini Park PA-C PCP - General Family Practice 04/05/12 01/19/16 documented as of this encounter
--- OUTSIDE RECORDS SUMMARY | 2022-04-03 07:07 | XMS_ITS | Encounter Summary ---
:1970 Author Organization [employer] Address [address] [place] [address] Care Team Providers Name Role Phone Padmini Park PA-C Primary Care Provider Reason for Visit Reason Comments Medication Request Encounter Details Date Type Department Care Team Description 12/18/2014 Telephone Chirag Chopra PA-C Medication Request [address] [place] [address] [place] [address] [phone] (Wo rk) Social History Tobacco Use Types Packs/Day Years Used Date Smoking Tobacco: Never Smokeless Tobacco: Never Alcohol Use Standard Drinks/Week Comments Yes 0 (1 standard drink = 0.6 oz pure alcoho l) occasional Sex Assigned at Date Recorded Not on file documented as of this encounter Nursing Notes Sumaya Rooney - 12/18/2014 5:08 PM CDT Spoke w/ pt, would like faxed to [facility] in [place] instead. Faxed per request. Note complete. Chirag [...] request pain meds. Cannot get up to NURSING TECHNICIAN but has appt on 01-17-15 for flex-sig. Those providers will not give pain med and advised pcp to do that. Pt states that ibuprofen gives her rebound headaches so cannot take that. Oxycodone makes her sick. Is requesting pain meds please to get her through until 01-17-15. Callback # [phone] wk until 6:30p/ lunch 12:30p for 45 min. Eleazar Pedersen - 12/18/2014 10:14 AM CDT [facility] Medication Issue/Refill Primary Care Provider: Chirag Metzger PA-C (General) Patient to contact pharmacy: no, new medication Comment: Patient calling stating that she has a procedure scheduled with Colon/rectal Surgery [facility] on 01/17. Patient is requesting a prescription for the pain until then. Pharmacy Name & Phone #: [id number] - [id number], [place] - [address] or City: Drug Name: Any medication for pain other then oxycodone Strength: Dose/Route/Freq: *ECODE documented in this encounter Plan of Treatment Not on filedocumented as of this encounter Visit Diagnoses Not on filedocumented in this encounter Care Teams Gun Stock Maker Relationship Specialty Start Date End Date Padmini Park PA-C PCP - General Family Practice 04/05/12 01/19/16 documented as of this encounter
--- OUTSIDE RECORDS SUMMARY | 2022-04-03 07:07 | XMS_ITS | Encounter Summary ---
:1970 Author Organization [employer] Address [address] [place] [address] Care Team Providers Name Role Phone Padmini [...] thor acic region, not elsewhere classified; [place] [address] Nonallopathic lesion of sacr al region, not elsewhere classified; [phone] Cervicalgia; Spasm of muscle Social History Tobacco [...] muscle documented in this encounter Care Teams Center Hole Reamer Relationship Specialty Start Date End Date Padmini Park PA-C PCP - General Family Practice 04/05/12 01/19/16 documented as of this encounter
--- OUTSIDE RECORDS SUMMARY | 2022-04-03 07:07 | XMS_ITS | Encounter Summary ---
:1970 Author Organization [employer] Address [address] [place] [address] Care Team Providers Name Role Phone Padmini Park PA-C Primary Care Provider Reason for Visit Reason Comments RECTAL PAIN Encounter Details Date Type Department Care Team Description 12/16/2014 Telephone [place] [facility] Jovanni e Chirag Metzger PA-C RECTAL PAIN [address] [place] [address] [place] [address] [phone] (Wo rk) Social History Tobacco Use Types [...] Please call the General Surgery dept. at [phone] to schedule your appointment with Dr. Carcamo. [...] 9:32 AM CDT Pt sees an outside [place]-rectal provider. She was seen by Dr Kim and you for this issue. Gloria Gonzales [...] pain documented in this encounter Care Teams Frame Feeder Relationship Specialty Start Date End Date Padmini Park PA-C PCP - General Family Practice 04/05/12 01/19/16 documented as of this encounter
--- OUTSIDE RECORDS SUMMARY | 2022-04-03 07:07 | XMS_ITS | Encounter Summary ---
:1970 Author Organization [employer] Address [address] [place] [address] Care Team Providers Name Role Phone Padmini [...] acic region, not elsewhere classified; [place] [id number] Nonallopathic lesion of sacr al region, not elsewhere classified; [phone] Cervicalgia; Spasm of muscle Social History Tobacco [...] OFF 2 - 3 TIMES PER DAY. Eonc Blanca DC documented in this encounter Plan of Treatment Not on filedocumented as of this encounter Visit Diagnoses Diagnosis Nonallopathic lesion of cervical region, not elsewhere classified - Primary Nonallopathic lesion of thoracic region, not elsewhere classified Nonallopathic lesion of sacral region, n ot elsewhere classified Cervicalgia Spasm of muscle documented in this encounter Care Teams Contract Technical Writer Relationship Specialty Start Date End Date Padmini Park PA-C PCP - General Family Practice 04/05/12 01/19/16 documented as of this encounter
--- OUTSIDE RECORDS SUMMARY | 2022-04-03 07:07 | XMS_ITS | Encounter Summary ---
:1970 Author Organization [employer] Address [address] [place] [address] Care Team Providers Name Role Phone Padmini Park PA-C Primary Care Provider Reason for Visit Reason Comments NECK PAIN BACK PAIN BACK PAIN, LOW Encounter Details Date Type Department Care Team Description 12/01/2014 Office Visit [facility] [place], Nonallopathic lesion of cerv ical region, not elsewhere classified (Primary Dx); [address] Enoc [place]az[place] Nonallopathic lesion of thor acic region, not elsewhere classified; [place] [address] Nonallopathic lesion of sacr al region, not elsewhere classified; [phone] Cervicalgia; Spasm of muscle Social History Tobacco [...] muscle documented in this encounter Care Teams Net Maker Relationship Specialty Start Date End Date Padmini Park PA-C PCP - General Family Practice 04/05/12 01/19/16 documented as of this encounter
--- OUTSIDE RECORDS SUMMARY | 2022-04-03 07:07 | XMS_ITS | Encounter Summary ---
:1970 Author Organization [email or web address] Address [address] [place] [address] Care Team Providers Name Role Phone Padmini Park PA-C Primary Care Provider Reason for Visit Reason Comments NECK PAIN BACK PAIN BACK PAIN, LOW Encounter Details Date Type Department Care Team Description 07/12/2015 Office Visit [facility] Pita Blanca nonallopathic lesion o f cervical region (Primary Dx); [address] En[place]az[place] Nonallopathic lesion of thor acic region; [place] [id number] Nonallopathic lesion of sacr al region; [phone] Cervicalgia; Spasm of muscle Social History Tobacco Use Types Packs/Day Years Used Date Smoking Tobacco: Never Smokeless Tobacco: Never Alcohol Use Standard Drinks/Week Comments Yes 0 (1 standard drink = 0.6 oz pure alcoho l) occasional Sex Assigned at Date Recorded Not on file documented as of this encounter Progress Notes Enoc Blanca DC - 07/12/2015 1:29 PM CST Marla Cuellar is 43 yr [...] 3 TIMES PER DAY. Enoc Blanca DC AR PACKER Enoc Blanca DC - 07/12/2015 1:03 PM CST Marla Cuellar is 43 yr female here for No chief complaint on file. Onset of left low back, mid back, [...] 3 TIMES PER DAY. Enoc Blanca DC AR PACKER documented in this encounter Plan of Treatment Not on filedocumented as of this encounter Visit Diagnoses Diagnosis Other nonallopathic lesion of cervical r egion - Primary Nonallopathic lesion of thoracic region Nonallopathic lesion of thoracic region, not elsewhere classified Nonallopathic lesion of sacral region Nonallopathic lesion of sacral region, n ot elsewhere classified Cervicalgia Spasm of muscle documented in this encounter Care Teams Company Marker Relationship Specialty Start Date End Date Padmini Park PA-C PCP - General Family Practice 04/05/12 01/19/16 documented as of this encounter
--- OUTSIDE RECORDS SUMMARY | 2022-04-03 07:07 | XMS_ITS | Encounter Summary ---
:1970 Author Organization [employer] Address [address] [place] [address] Care Team Providers Name Role Phone Padmini Park PA-C Primary Care Provider Reason for Visit Reason Comments Post-Op Check Encounter Details Date Type Department Care Team Description 03/03/2015 Office Visit [facility] Indio Hernandez MD Postop check (Primary Dx); [facility] [address] [place] Abdominal gas pain [address] [place], [place] [address] [address] [place], [place] [phone] (Wo rk) [address] [phone] Social History Tobacco Use Types Packs/Day Years [...] may result . Please contact me via [facility] [facility] staff message if you note any errors requiring clarification. documented in this encounter Plan of Treatment Not on filedocumented as of this encounter Visit Diagnoses Diagnosis Postop check - Primary Follow-up examination, following unspeci fied surgery Abdominal gas pain Flatulence, eructation, and gas pain documented in this encounter Care Teams Shactor Helper Relationship Specialty Start Date End Date Padmini Park PA-C PCP - General Family Practice 04/05/12 01/19/16 documented as of this encounter
--- OUTSIDE RECORDS SUMMARY | 2022-04-03 07:07 | XMS_ITS | Encounter Summary ---
:1970 Author Organization [employer] Address [address] [place] [address] Care Team Providers Name Role Phone Padmini Park PA-C Primary Care Provider Encounter Details Date Type Department Care Team Description 01/13/2015 Lab Visit [facility] Annual physical exam [address] [place], [place] [id number] Social History Tobacco Use Types Packs/Day Years [...] - 01/13/2015 2:38 PM CDT Performed at [facility], [address] [place] [address] Chirag Metzger PA-C LAB_[address] [facility] Phon e Number HP CONVERSION Lipid Panel and Direct LDL(If Needed) (01/13/2015 12:09 PM CDT) [facility] gist Method Time Signature Cholesterol 163 0 [...] - 01/13/2015 2:38 PM CDT Performed at [facility], [address] [place] [address] Chirag Metzger PA-C LAB_1 Performing Organization Address [facility] Phon e Number HP CONVERSION documented in this encounter Visit Diagnoses Diagnosis Annual physical exam Routine general medical examination at a health care facility documented in this encounter Care Teams Paint Roller Cover Machine Setter Relationship Specialty Start Date End Date Padmini Park PA-C PCP - General Family Practice 04/05/12 01/19/16 documented as of this encounter
--- OUTSIDE RECORDS SUMMARY | 2022-04-03 07:08 | XMS_ITS | Encounter Summary ---
:1970 Author Organization [employer] Address [address] [place] [address] Care Team Providers Name Role Phone Padmini Park PA-C Primary Care Provider Reason for Visit Reason Comments RAD Revisit Encounter Details Date Type Department Care Team Description 11/24/2013 Office Visit [facility], Nonallopathic lesion of sacr al region, not elsewhere classified (Primary Dx); [address] Enoc Lazaro [place] Nonallopathic lesion of thor acic region, not elsewhere classified; [place] [id number] Nonallopathic lesion of cerv ical region, not elsewhere classified; [phone] Spasm of muscle Social History Tobacco Use Types Packs/Day Years Used Date Smoking Tobacco: Never Smokeless Tobacco: Never Alcohol Use Standard Drinks/Week Comments Yes 0 (1 standard drink = 0.6 oz pure alcoho l) occasional Sex Assigned at Date Recorded Not on file documented as of this encounter Progress Notes Enoc Blanca DC - 11/24/2013 8:09 AM CDT Marla Cuellar is 43 yr female here for Chief Complaint Patient presents with ??? RAD Revisit Onset: Insidious onset of low back, mid back and neck pain. Woke up with neck pain on 11/21/2013. 02/27 yesterday. .-11/27 Review of systems: Denies numbness, tingling, or [...] muscle documented in this encounter Care Teams After School Driver Relationship Specialty Start Date End Date Padmini Park PA-C PCP - General Family Practice 04/05/12 01/19/16 documented as of this encounter
--- OUTSIDE RECORDS SUMMARY | 2022-04-03 07:08 | XMS_ITS | Encounter Summary ---
:1970 Author Organization [employer] Address [address] [place] [address] Care Team Providers Name Role Phone Padmini [...] acic region, not elsewhere classified; [place] [id number] Nonallopathic lesion of cerv ical region, not elsewhere classified; [phone] Spasm of muscle Social History Tobacco Use [...] REH[facility]IL[facility]. Enoc Blanca DC ER SORTER MACHINE documented in this encounter Plan of Treatment Not on filedocumented as of this encounter Visit Diagnoses Diagnosis Nonallopathic lesion of sacral region, n ot elsewhere classified - Primary Nonallopathic lesion of thoracic region, not elsewhere classified Nonallopathic lesion of cervical region, not elsewhere classified Spasm of muscle documented in this encounter Care Teams Disbursing Agent Relationship Specialty Start Date End Date Padmini Park PA-C PCP - General Family Practice 04/05/12 01/19/16 documented as of this encounter
--- OUTSIDE RECORDS SUMMARY | 2022-04-03 07:08 | XMS_ITS | Encounter Summary ---
:1970 Author Organization [employer] Address [address] [place] [address] Care Team Providers Name Role Phone Padmini Park PA-C Primary Care Provider Reason for Visit Reason Comments Patient Calling Back Encounter Details Date Type Department Care Team Description 03/04/2014 Telephone Chirag Chopra PA-C Patient Calling Back [address] [place] [address] [place] [id number] (Wo rk) Social History Tobacco Use Types [...] conjunctivitis documented in this encounter Care Teams Film Drying Machine Operator Relationship Specialty Start Date End Date Padmini Park, LION PCP - General Family Practice 04/05/12 01/19/16 documented as of this encounter
--- OUTSIDE RECORDS SUMMARY | 2022-04-03 07:08 | XMS_ITS | Encounter Summary ---
:1970 Author Organization [employer] Address [address] [place] [address] Care Team Providers Name Role Phone Padmini [...] acic region, not elsewhere classified; [place] [id number] Nonallopathic lesion of cerv ical region, not elsewhere classified; [phone] Spasm of muscle Social History Tobacco Use [...] REH[facility]. Enoc Blanca DC LATION SOFTWARE ENGINEER documented in this encounter Plan of Treatment Not on filedocumented as of this encounter Visit Diagnoses Diagnosis Nonallopathic lesion of sacral region, n ot elsewhere classified - Primary Nonallopathic lesion of thoracic region, not elsewhere classified Nonallopathic lesion of cervical region, not elsewhere classified Spasm of muscle documented in this encounter Care Teams Lode Miner Blasting Relationship Specialty Start Date End Date Padmini Prak PA-C PCP - General Family Practice 04/05/12 01/19/16 documented as of this encounter
--- OUTSIDE RECORDS SUMMARY | 2022-04-03 07:08 | XMS_ITS | Encounter Summary ---
:1970 Author Organization [employer] Address [address] [place] [address] Care Team Providers Name Role Phone Padmini Park PA-C Primary Care Provider Reason for Visit Reason Comments NECK PAIN BACK PAIN Encounter Details Date Type Department Care Team Description 07/01/2014 Office Visit [facility] [place], Nonallopathic lesion of sacr al region, not elsewhere classified (Primary Dx); [address] Enco Lazaro [place] Nonallopathic lesion of thor acic region, not elsewhere classified; [place] [phone] Nonallopathic lesion of cerv ical region, not elsewhere classified; [phone] Spasm of muscle Social History Tobacco Use [...] mid back, neck pain and headaches. Improvement 2-3 Review of systems: Denies numbness, tingling, or [...] REH[facility]IL[facility]. Enoc Blanca DC IC RELATIONS CONSULTANT documented in this encounter Plan of Treatment Not on filedocumented as of this encounter Visit Diagnoses Diagnosis Nonallopathic lesion of sacral region, n ot elsewhere classified - Primary Nonallopathic lesion of thoracic region, not elsewhere classified Nonallopathic lesion of cervical region, not elsewhere classified Spasm of muscle documented in this encounter Care Teams Patch Press Operator Relationship Specialty Start Date End Date Padmini Park PA-C PCP - General Family Practice 04/05/12 01/19/16 documented as of this encounter
--- OUTSIDE RECORDS SUMMARY | 2022-04-03 07:08 | XMS_ITS | Encounter Summary ---
:1970 Author Organization [employer] Address [address] [place] [address] Care Team Providers Name Role Phone Padmini Park PA-C Primary Care Provider Reason for Visit Reason Comments Medication Request Encounter Details Date Type Department Care Team Description 09/16/2013 Telephone Chirag Chopra PA-C Medication Request [address] [place] [address] [place] [address] [phone] (Wo rk) Social History Tobacco Use Types Packs/Day Years Used Date Smoking Tobacco: Never Smokeless Tobacco: Never Alcohol Use Standard Drinks/Week Comments Yes 0 (1 standard drink = 0.6 oz pure alcoho l) occasional Sex Assigned at Date Recorded Not on file documented as of this encounter Nursing Notes Padmini Napier LPN - 09/16/2013 3:39 PM CDT Message was left for the pt that her rx has been faxed. Chirag Metzger PA-C - 09/16/2013 3:32 PM CDT Rx faxed Bren Rosado RN - 09/16/2013 3:18 PM CDT DOES NOT MEET REQUIREMENTS FOR REFILL Reason: medication not on active med list Last visit with PCP: acute visit on 09/11/13 Last Rx 11/12/12. FLEXERIL 10 mg. (Discontinued) 20 tablet. 0 Spoke with pt. Pt has used muscle relaxant for neck and back pain. Pt just had appt for leg pain on 09/11 but states that med is for more neck and back pain. Pt pulled neck recently and reports that neck and back pain is chronic issue. Pharmacy verified. Keara Cuellar ([facility]) [phone] (H) vm ok Sofie Bryan RN - 09/16/2013 2:49 PM CDT Left message to call back [phone] Tamica Han - 09/16/2013 2:42 PM CDT pt is requesting a muscle relaxer for back/neck pain documented in this encounter Plan of Treatment Not on filedocumented as of this encounter Visit Diagnoses Not on filedocumented in this encounter Care Teams Global Climate Change Researcher Relationship Specialty Start Date End Date Padmini Park PA-C PCP - General Family Practice 04/05/12 01/19/16 documented as of this encounter
--- OUTSIDE RECORDS SUMMARY | 2022-04-03 07:08 | XMS_ITS | Encounter Summary ---
:1970 Author Organization [employer] Address [address] [place] [address] Care Team Providers Name Role Phone Padmini Park PA-C Primary Care Provider Reason for Visit Reason Comments Medication Questions Encounter Details Date Type Department Care Team Description 03/03/2014 Telephone Chirag Chopra PA-C Medication Questions [address] [place] [address] [place] [address] [phone] (Wo rk) Social History Tobacco Use Types [...] PM CDT Left message to call back [phone] Justina Manzo - 03/03/2014 1:08 PM CDT Patient wants to know if Dr. Metzger can increase her pain medication dosage documented in this encounter Plan of Treatment Not on filedocumented as of this encounter Visit Diagnoses Diagnosis Chronic allergic conjunctivitis - Primar y Other chronic allergic conjunctivitis Motion sickness documented in this encounter Care Teams Clothes Presser Relationship Specialty Start Date End Date Padmini Park PA-C PCP - General Family Practice 04/05/12 01/19/16 documented as of this encounter
--- OUTSIDE RECORDS SUMMARY | 2022-04-03 07:08 | XMS_ITS | Encounter Summary ---
:1970 Author Organization [employer] Address [address] [place] [address] Care Team Providers Name Role Phone Padmini Park PA-C Primary Care Provider Reason for Visit Reason Comments NECK PAIN BACK PAIN Encounter Details Date Type Department Care Team Description 04/02/2014 Office Visit [facility] [place], Nonallopathic lesion of sacr al region, not elsewhere classified (Primary Dx); [address] [place] Nonallopathic lesion of thor acic region, not elsewhere classified; [place] [address] Nonallopathic lesion of cerv ical region, not elsewhere classified; [phone] Spasm of muscle Social History Tobacco Use Types Packs/Day Years Used Date Smoking Tobacco: Never Smokeless Tobacco: Never Alcohol Use Standard Drinks/Week Comments Yes 0 (1 standard drink = 0.6 oz pure alcoho l) occasional Sex Assigned at Date Recorded Not on file documented as of this encounter Progress Notes Enoc Blanca DC - 04/02/2014 8:43 AM CST Subjective Keara Cuellar is 43 yr female here for Chief Complaint Patient presents with ??? NECK PAIN ??? BACK PAIN Onset: Insidious onset of low back, mid back and neck pain. Improvement 08/28 Review of systems: Denies numbness, tingling, [...] REH[facility]ILIT[facility]. Enoc Blanca DC ANICAL DETAILER documented in this encounter Plan of Treatment Not on filedocumented as of this encounter Visit Diagnoses Diagnosis Nonallopathic lesion of sacral region, n ot elsewhere classified - Primary Nonallopathic lesion of thoracic region, not elsewhere classified Nonallopathic lesion of cervical region, not elsewhere classified Spasm of muscle documented in this encounter Care Teams Cashier And Salesperson Relationship Specialty Start Date End Date Padmini Park PA-C PCP - General Family Practice 04/05/12 01/19/16 documented as of this encounter
--- OUTSIDE RECORDS SUMMARY | 2022-04-03 07:08 | XMS_ITS | Encounter Summary ---
:1970 Author Organization [employer] Address [address] [place] [address] Care Team Providers Name Role Phone Padmini [...] acic region, not elsewhere classified; [place] [address] Nonallopathic lesion of cerv ical region, not elsewhere classified; [phone] Spasm of muscle Social History Tobacco Use [...] REH[facility]ILIT[facility]. Enoc Blanca DC ATICIZER FEEDER documented in this encounter Plan of Treatment Not on filedocumented as of this encounter Visit Diagnoses Diagnosis Nonallopathic lesion of sacral region, n ot elsewhere classified - Primary Nonallopathic lesion of thoracic region, not elsewhere classified Nonallopathic lesion of cervical region, not elsewhere classified Spasm of muscle documented in this encounter Care Teams Circus Train Supervisor Relationship Specialty Start Date End Date Padmini Park PA-C PCP - General Family Practice 04/05/12 01/19/16 documented as of this encounter
--- OUTSIDE RECORDS SUMMARY | 2022-04-03 07:08 | XMS_ITS | Encounter Summary ---
:1970 Author Organization [employer] Address [address] [place] [address] Care Team Providers Name Role Phone Padmini Park PA-C Primary Care Provider Reason for Visit Reason Comments Workers Compensation Encounter Details Date Type Department Care Team Description 08/12/2014 Office Visit [facility] [place], Sprain of sacrum, initial en counter (Primary Dx); [address] [place]az[place] Sprain of thoracic region, i nitial encounter; [place] [id number] Sprain of neck, initial enco unter; [phone] Spasm of muscle Social History Tobacco Use [...] muscle documented in this encounter Care Teams Rolling Down Machine Operator Relationship Specialty Start Date End Date Padmini Park PA-C PCP - General Family Practice 04/05/12 01/19/16 documented as of this encounter
--- OUTSIDE RECORDS SUMMARY | 2022-04-03 07:08 | XMS_ITS | Encounter Summary ---
:1970 Author Organization [employer] Address [address] [place] [address] Care Team Providers Name Role Phone Padmini Park PA-C Primary Care Provider Reason for Visit Reason Comments HEADACHE,MIGRAINE Encounter Details Date Type Department Care Team Description 02/04/2014 Office Visit [facility] Chirag Metzger, Status migrainosus [address] PA-C (Primary Dx) [place] [address] [address] [phone] [place] [id number] Social History Tobacco Use Types Packs/Day Years [...] and light sensitivity. She was seen at [facility] [place] on 01/28/2014, andwas given a shot of [...] cycle, will recommend that she present to [facility] for admission for Status Migraine Protocol. Discussedestablishing with Neurology for ongoing management of her migraine syndrome, which she is agreeable to; however, she does not want to go to [place] for this. Will check with her insurance [...] and light sensitivity. She was seen at [facility] [place] on 01/28/2014, andwas given a shot of [...] inosus documented in this encounter Care Teams Surplus Property Disposal Agent Relationship Specialty Start Date End Date Padmini Park PA-C PCP - General Family Practice 04/05/12 01/19/16 documented as of this encounter
--- OUTSIDE RECORDS SUMMARY | 2022-04-03 07:08 | XMS_ITS | Encounter Summary ---
:1970 Author Organization [employer] Address [address] [place] [address] Care Team Providers Name Role Phone Padmini Park PA-C Primary Care Provider Reason for Visit Reason Comments Revisit Encounter Details Date Type Department Care Team Description 10/08/2013 Office Visit [facility] [place], Nonallopathic lesion of sacr al region, not elsewhere classified (Primary Dx); [address] En[place] Nonallopathic lesion of thor acic region, not elsewhere classified; [place] [address] Nonallopathic lesion of cerv ical region, not elsewhere classified; [phone] Spasm of muscle Social History Tobacco Use Types Packs/Day Years Used Date Smoking Tobacco: Never Smokeless Tobacco: Never Alcohol Use Standard Drinks/Week Comments Yes 0 (1 standard drink = 0.6 oz pure alcoho l) occasional Sex Assigned at Date Recorded Not on file documented as of this encounter Progress Notes Enoc Blanca DC - 10/08/2013 3:44 PM CDT Marla Cuellar is 43 yr [...] muscle documented in this encounter Care Teams Credit Collections Rep Relationship Specialty Start Date End Date Padmini Park PA-C PCP - General Family Practice 04/05/12 01/19/16 documented as of this encounter
--- OUTSIDE RECORDS SUMMARY | 2022-04-03 07:08 | XMS_ITS | Encounter Summary ---
:1970 Author Organization [employer] Address [address] [place] [address] Care Team Providers Name Role Phone Padmini Park PA-C Primary Care Provider Reason for Visit Reason Comments SHOT,FLU Encounter Details Date Type Department Care Team Description 03/20/2014 Immunization [facility] Encounter for immunization [address] (Primary Dx) [place] [address] Social History Tobacco Use Types Packs/Day [...] disease documented in this encounter Care Teams Grab Jack Worker Relationship Specialty Start Date End Date Padmini Park PA-C PCP - General Family Practice 04/05/12 01/19/16 documented as of this encounter
--- OUTSIDE RECORDS SUMMARY | 2022-04-03 07:08 | XMS_ITS | Encounter Summary ---
:1970 Author Organization [employer] Address [address] [place] [address] Care Team Providers Name Role Phone Padmini Park PA-C Primary Care Provider Encounter Details Date Type Department Care Team Description 12/05/2013 Lab Visit [facility] Vitamin D deficiency; [address] [place], [place] [id number] Social History Tobacco Use Types Packs/Day Years [...] Name Priority Date/Time Associated Diagnosis Comme nts VITAMIN D Routine 12/05/2013 2:57 PM Vitamin D deficiency R esults for this 25-HYDROXY, TOTAL CDT procedure are in the results section. VITAMIN B12 ONLY Routine 12/05/2013 2:57 PM Fatigue Resul ts for this CDT procedure are i n the results section. CALCIUM Routine 12/05/2013 2:57 PM Vitamin D deficiency R esults for this CDT procedure are i n the results section. documented in this encounter Results (ABNORMAL) Vitamin D 25-Hydroxy, Total (12/05/2013 2:57 PM CDT) P athologist Signature Vitamin D 25 Oh 7 (L) 20 - 80 HP CONVERSION ng/mL Comment: Deficiency = <20 Adequate ??= 20-29 Preferred = 30-50 Uncertain safety = 51-80 High = >80 Specimen Anatomical Collection Method Collection Time Receive d Time (Source) Location / / Volume Laterality 12/05/2013 2:57 PM 4 6:25 CDT PM CDT Chirag Metzger PA-C LAB_1 [address] [facility] Code Phon e Number HP CONVERSION B12 Only (12/05/2013 2:57 PM CDT) athologist Signature Vitamin B12 [phone] HP CONVERSION pg/dL Specimen Anatomical Collection Method Collection Time Receive d Time (Source) Location / / Volume Laterality 12/05/2013 2:57 PM 4 6:25 CDT PM CDT Chirag Metzger PA-C LAB_[address] [facility] Phon e Number HP CONVERSION Calcium (12/05/2013 2:57 PM CDT) athologist Signature Calcium 9.6 8.5 - 10.5 HP CONVERSION mg/dL Specimen Anatomical Collection Method Collection Time Receive d Time (Source) Location / / Volume Laterality 12/05/2013 2:57 PM 4 4:53 CDT PM CDT Narrative HP CONVERSION - 12/05/2013 5:22 PM CDT Performed at [facility], [address] [place] [address] Chirag Metzger PA-C LAB_1 Performing Organization Address City/[facility] Phon e Number HP CONVERSION documented in this encounter Visit Diagnoses Diagnosis Vitamin D deficiency ([facility]) Unspecified vitamin D deficiency Fatigue Other malaise and fatigue documented in this encounter Care Teams Prototype Special Build Relationship Specialty Start Date End Date Padmini Park PA-C PCP - General Family Practice 04/05/12 01/19/16 documented as of this encounter
--- OUTSIDE RECORDS SUMMARY | 2022-04-03 07:08 | XMS_ITS | Encounter Summary ---
:1970 Author Organization [employer] Address [address] [place] [address] Care Team Providers Name Role Phone Padmini Park PA-C Primary Care Provider Reason for Visit Reason Comments MEDICATION CHECK Encounter Details Date Type Department Care Team Description 12/05/2013 Office Visit [facility] Chirag Metzger, Fatigue (Primary Dx); [address] PA-C Headache, migraine; [place] [id number] [address] Vitamin D deficiency [phone] [place] [id number] Social History Tobacco Use Types Packs/Day Years [...] deficiency documented in this encounter Care Teams Rn New Grad Relationship Specialty Start Date End Date Padmini Park PA-C PCP - General Family Practice 04/05/12 01/19/16 documented as of this encounter
--- OUTSIDE RECORDS SUMMARY | 2022-04-03 07:08 | XMS_ITS | Encounter Summary ---
:1970 Author Organization [employer] Address [address] [place] [address] Care Team Providers Name Role Phone Padmini Park PA-C Primary Care Provider Encounter Details Date Type Department Care Team Description 09/11/2013 Imaging [facility] Thigh pain [address] [place], [place] [id number] Social History Tobacco Use Types Packs/Day Years [...] limb documented in this encounter Care Teams Domestic Laundry Worker Relationship Specialty Start Date End Date Padmini Park PA-C PCP - General Family Practice 04/05/12 01/19/16 documented as of this encounter
--- OUTSIDE RECORDS SUMMARY | 2022-04-03 07:08 | XMS_ITS | Encounter Summary ---
:1970 Author Organization [employer] Address [address] [place] [address] Care Team Providers Name Role Phone Padmini Park PA-C Primary Care Provider Reason for Visit Reason Comments Follow-up Encounter Details Date Type Department Care Team Description 11/04/2014 Office Visit Chirag Chopra, Breast cancer screening (Lashawn christensen Dx); [address] PA-C Screen for colon cancer [place] [id number] [address] [phone] [place] [id number] Social History Tobacco Use Types Packs/Day Years Used Date Smoking Tobacco: Never Smokeless Tobacco: Never Alcohol Use Standard Drinks/Week Comments Yes 0 (1 standard drink = 0.6 oz pure alcoho l) occasional Sex Assigned at Date Recorded Not on file documented as of this encounter Last Filed Vital Signs Vital Sign Reading Time Taken Comments Blood Pressure 110/80 11/04/2014 3:15 PM CDT Pulse 64 11/04/2014 3:15 PM CDT Temperature - - Respiratory Rate - - Oxygen Saturation - - Inhaled Oxygen Concentration - - Weight 69.9 kg (154 lb) 11/04/2014 3:15 PM CDT Height - - Body Mass Index 29.58 11/26/2013 3:49 PM CDT documented in this encounter Progress Notes Chirag Metzger PA-C - 12/08/2014 5:51 PM CDT SUBJECTIVE: This 44 y.o. female presents today with the following concern(s): Follow-up for rectal pain She was seen at the ER for terrible rectal pain. This has occurred episodically, and she has been evaluated in the past for it, during a pain episode, by non-[facility] GI. She had apparently had an US that showed something abnormal. She was given instructions for follow-up, but her pain improved, so she never followed through. She isn't sure exactly what was imaged, and she does not recall what the abnormality was. Since then, pain has recurred. She had a pelvic US in the ER that showed nothing of any concern, other than ovarian cyst. She has a consult scheduled in insurance claims examiner. Wonders what else she should bechekcing on. Adverse Drug Reactions: has No Known Allergies. Medications: has a current medication list which includes the following prescription(s): azelastine,hydroxyzine pamoate, ibuprofen, methocarbamol, phentermine, and rizatriptan. Tobacco History: reports that she has never smoked. She has never used smokeless tobacco. Alcohol History: reports that she drinks about 1.8 oz of alcohol per week. OBJECTIVE: Vital Signs: BP 110/80 Pulse 64 Wt 154 lb (69.854 kg) General appearance: alert, cooperative, no distress, appears stated age ASSESSMENT/PLAN: Keara was seen today for follow-up. Diagnoses and associated orders for this visit: Breast cancer screening - MM Mammogram Screening Bilateral W Cad; Future Screen for colon cancer Other Orders - Cancel: Colonoscopy; Future - ibuprofen (MOTRIN) 800 mg tablet; Take 1 tablet by mouth 3 times daily. She will talk with her GI doctor to find out what the result was on her original US. She will bring that information with her to her visit with Dr. Alvarez in insurance claims examiner. The patient was discharged ambulatory and in stable condition. documented in this encounter Plan of Treatment Not on filedocumented as of this encounter Visit Diagnoses Diagnosis Screen for colon cancer Special screening for malignant neoplasm s, colon documented in this encounter Care Teams Photography Coordinator Relationship Specialty Start Date End Date Padmini Park PA-C PCP - General Family Practice 04/05/12 01/19/16 documented as of this encounter
--- OUTSIDE RECORDS SUMMARY | 2022-04-03 07:08 | XMS_ITS | Encounter Summary ---
:1970 Author Organization [employer] Address [address] [place] [address] Care Team Providers Name Role Phone Padmini Park PA-C Primary Care Provider Reason for Visit Reason Comments Rash Medication Request Encounter Details Date Type Department Care Team Description 11/05/2014 Nurse Triage Chirag Chopra Rash; Medication [address] [place] Request [place] [id number] [phone] [place] [id number] Social History Tobacco Use Types Packs/Day Years Used Date Smoking Tobacco: Never Smokeless Tobacco: Never Alcohol Use Standard Drinks/Week Comments Yes 0 (1 standard drink = 0.6 oz pure alcoho l) occasional Sex Assigned at Date Recorded Not on file documented as of this encounter Nursing Notes Alyson Mukherjee LPN - 11/05/2014 8:51 AM CDT Informed Chirag Metzger PA-C - 11/05/2014 8:37 AM CDT Rx faxed for ketoconazole cream. As the weather gets warmer, we're starting to see some of these heat-related and moisture-related rashes. Agree that this is likely due to that, and the ketoconazole can help. Nilam Rushing RN - 11/05/2014 8:32 AM CDT Reason for Call: Medication Request. Ketoconazole cream for rash under breast. Was treated 05/27/13 for similar symptoms. Next Steps: Document further recommendations and route to appropriate person or pool. Patient IS expecting a call back. Additional Information: Called patient back. New rash under her breast since yesterday. Small red bumps, underlying skin slightly red. Itchy. Denies pain. Afebrile. Was trying on bras the other day, patient wondering if from that. States it appears like a previous breast area rash, is requesting a refill of the cream she had--Ketoconazole. Did review interim home care advice it patient needs to come in instead. Please advise patient if RX send in, or if you prefer she be seen. Pharmacy: [facility] in [place] as listed. Requested Prescriptions Pending Prescriptions Disp Refills ??? ketoconazole (NIZORAL) 2 % cream 30 g 1 Sig: Apply topically daily (every 24 hours). Protocol: RASH OR REDNESS - [id number] Affirmative: Localized rash present > 7 days Disposition of See Within 3 Days In Office suggested. Nilam Dawknis LPN - 11/05/2014 8:14 AM CDT Triage nurse called patient back, lmx1 LOT Misty Valerio - 11/05/2014 7:48 AM CDT Pt has rash under her breast & keeps cream on hand for when sx occur. Pt is having rash sx now & asking for refill. She is unsure of rx name. Call to discuss. documented in this encounter Plan of Treatment Not on filedocumented as of this encounter Visit Diagnoses Diagnosis Rash - Primary Rash and other nonspecific skin eruption documented in this encounter Care Teams Site Specialist Relationship Specialty Start Date End Date Padmini Park PA-C PCP - General Family Practice 04/05/12 01/19/16 documented as of this encounter
--- OUTSIDE RECORDS SUMMARY | 2022-04-03 07:08 | XMS_ITS | Encounter Summary ---
:1970 Author Organization [employer] Address [address] [place] [address] Care Team Providers Name Role Phone Padmini [...] acic region, not elsewhere classified; [place] [id number] Nonallopathic lesion of cerv ical region, not elsewhere classified; [phone] Spasm of muscle Social History Tobacco Use [...] REHABILITATE THE THORACIC REGIONS. Enoc Blanca DC N BIOLOGIST documented in this encounter Plan of Treatment Not on filedocumented as of this encounter Visit Diagnoses Diagnosis Nonallopathic lesion of sacral region, n ot elsewhere classified - Primary Nonallopathic lesion of thoracic region, not elsewhere classified Nonallopathic lesion of cervical region, not elsewhere classified Spasm of muscle documented in this encounter Care Teams Ironmolder Relationship Specialty Start Date End Date Padmini Park PA-C PCP - General Family Practice 04/05/12 01/19/16 documented as of this encounter
--- OUTSIDE RECORDS SUMMARY | 2022-04-03 07:08 | XMS_ITS | Encounter Summary ---
:1970 Author Organization [employer] Address [address] [place] [address] Care Team Providers Name Role Phone Padmini Park PA-C Primary Care Provider Reason for Visit Reason Comments Follow-up, NOS Encounter Details Date Type Department Care Team Description 11/28/2013 Office Visit [facility], Nonallopathic lesion of sacr al region, not elsewhere classified (Primary Dx); [address] Enoc Lazaro DC Nonallopathic lesion of thor acic region, not elsewhere classified; [place] [phone] Nonallopathic lesion of cerv ical region, not elsewhere classified; [phone] Spasm of muscle Social History Tobacco Use Types Packs/Day Years Used Date Smoking Tobacco: Never Smokeless Tobacco: Never Alcohol Use Standard Drinks/Week Comments Yes 0 (1 standard drink = 0.6 oz pure alcoho l) occasional Sex Assigned at Date Recorded Not on file documented as of this encounter Progress Notes Enoc Blanca DC - 11/28/2013 8:06 AM CDT Marla Cuellar is 43 yr [...] muscle documented in this encounter Care Teams Technicians And Trades Workers Relationship Specialty Start Date End Date Padmini Park PA-C PCP - General Family Practice 04/05/12 01/19/16 documented as of this encounter
--- OUTSIDE RECORDS SUMMARY | 2022-04-03 07:08 | XMS_ITS | Encounter Summary ---
:1970 Author Organization [email or web address] Address [address] [place] [address] Care Team Providers Name Role Phone Padmini Park PA-C Primary Care Provider Reason for Visit Reason Comments Follow-up, NOS Neck, mid and low back pain. pain is 5/10 today. Encounter Details Date Type Department Care Team Description 09/18/2013 Office Visit [facility], Nonallopathic lesion of sacr al region, not elsewhere classified (Primary Dx); [address] Enoc Lazaro [place] Nonallopathic lesion of thor acic region, not elsewhere classified; [place] [id number] Nonallopathic lesion of cerv ical region, not elsewhere classified; [phone] Spasm of muscle Social History Tobacco Use Types Packs/Day Years Used Date Smoking Tobacco: Never Smokeless Tobacco: Never Alcohol Use Standard Drinks/Week Comments Yes 0 (1 standard drink = 0.6 oz pure alcoho l) occasional Sex Assigned at Date Recorded Not on file documented as of this encounter Last Filed Vital Signs Vital Sign Reading Time Taken Comments Blood Pressure 121/80 09/18/2013 8:19 AM CDT Pulse 78 09/18/2013 8:19 AM CDT Temperature - - Respiratory Rate - - Oxygen Saturation - - Inhaled Oxygen Concentration - - Weight - - Height - - Body Mass Index - - documented in this encounter Progress Notes Enoc Blanca DC - 09/18/2013 8:28 AM CDT Subjective Keara Cuellar is 43 yr female here for Chief Complaint Patient presents with ??? Follow-up, NOS Neck, mid and low back pain. pain is 5/10 today. Onset: Insidious onset of low back, mid back and neck pain. Improvement 5/10. Review of systems: Denies numbness, tingling, or weakness in the extremities. Denies change in bowel/bladder function. Past medical, surgical, social, and family history has been reviewed. Objective: BP 121/80 Pulse 78 Estimated body mass index is 31.76 kg/(m^2) [...] muscle documented in this encounter Care Teams Chief Airport Guide Relationship Specialty Start Date End Date Padmini Park PA-C PCP - General Family Practice 04/05/12 01/19/16 documented as of this encounter
--- OUTSIDE RECORDS SUMMARY | 2022-04-03 07:08 | XMS_ITS | Encounter Summary ---
:1970 Author Organization [employer] Address [address] [place] [address] Care Team Providers Name Role Phone Padmini Park PA-C Primary Care Provider Reason for Visit Reason Comments Provider Orders Encounter Details Date Type Department Care Team Description 12/09/2013 Telephone Chirag Chopra PA-C Provider Orders [address] [place] [address] [place] [phone] (Wo rk) Social History Tobacco Use Types [...] pain *If symptom related, send to triage Keg Raiser: Keara Cuellar Best call back number: [phone] (home) , Telephone Information: Is it OK to leave a confidential message on this voicemail? yes documented in this encounter Plan of Treatment Not on filedocumented as of this encounter Visit Diagnoses Not on filedocumented in this encounter Care Teams Technical Account Representative Relationship Specialty Start Date End Date Padmini Park PA-C PCP - General Family Practice 04/05/12 01/19/16 documented as of this encounter
--- OUTSIDE RECORDS SUMMARY | 2022-04-03 07:08 | XMS_ITS | Encounter Summary ---
:1970 Author Organization [employer] Address [address] [place] [address] Care Team Providers Name Role Phone Padmini Park PA-C Primary Care Provider Reason for Visit Reason Comments Revisit neck Encounter Details Date Type Department Care Team Description 09/15/2013 Office Visit [facility], Nonallopathic lesion of sacr al region, not elsewhere classified (Primary Dx); [address] Enoc Lazaro [place] Nonallopathic lesion of thor acic region, not elsewhere classified; [place] [phone] Nonallopathic lesion of cerv ical region, not elsewhere classified; [phone] Spasm of muscle Social History Tobacco Use [...] - 09/15/2013 9:47 AM CDT Subjective Keara M Polo is 43 yr female here for [...] muscle documented in this encounter Care Teams Account Service Representative Relationship Specialty Start Date End Date Padmini Park PA-C PCP - General Family Practice 04/05/12 01/19/16 documented as of this encounter
--- OUTSIDE RECORDS SUMMARY | 2022-04-03 07:08 | XMS_ITS | Encounter Summary ---
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 Cuellar is a 44-year-old, para 2-0-0-2, who presents to clinic today to follow up on her recent Emergency Room visit. She was seen in the Emergency Room at [facility] on 11/01/2014 for rectal pain. She had a normal exam at that time and had a pelvic ultrasound done which showed normal ovaries bilaterally. She has a history of having a laparoscopic supracervical hysterectomy around 2004for uterine fibroids. That surgery was done in [place]. Over the past 3 years, she has had intermittent throbbing pain in her rectum. She was seen at [facility] for this pain in 2011. At [...] were re-evaluated on ultrasound on 11/01/2014 at [facility], and were normal with no cystic lesions [...] time 30 minutes. Counseling time 20 minutes. CJK:MEDZoran C: CONFIRM #: [id number] documented in this encounter Plan of Treatment Not on filedocumented as of this encounter Visit Diagnoses Diagnosis Rectal pain - Primary Anal or rectal pain documented in this encounter Care Teams Manager Endoscopy Relationship Specialty Start Date End Date Padmini Park PA-C PCP - General Family Practice 04/05/12 01/19/16 documented as of this encounter
--- OUTSIDE RECORDS SUMMARY | 2022-04-03 07:08 | XMS_ITS | Encounter Summary ---
:1970 Author Organization [employer] Address [address] [place] [address] Care Team Providers Name Role Phone Padmini [...] acic region, not elsewhere classified; [place] [id number] Nonallopathic lesion of sacr al region, not elsewhere classified; [phone] Cervicalgia; Spasm of muscle Social History Tobacco [...] muscle documented in this encounter Care Teams Flow Coordinator Relationship Specialty Start Date End Date Padmini Park PA-C PCP - General Family Practice 04/05/12 01/19/16 documented as of this encounter
--- OUTSIDE RECORDS SUMMARY | 2022-04-03 07:08 | XMS_ITS | Encounter Summary ---
:1970 Author Organization [employer] Address [address] [place] [address] Care Team Providers Name Role Phone Padmini Park PA-C Primary Care Provider Reason for Visit Reason Comments NECK PAIN BACK PAIN Encounter Details Date Type Department Care Team Description 06/17/2014 Office Visit [facility], Nonallopathic lesion of sacr al region, not elsewhere classified (Primary Dx); [address] Enoc Lazaro [place] Nonallopathic lesion of thor acic region, not elsewhere classified; [place] [id number] Nonallopathic lesion of cerv ical region, not elsewhere classified; [phone] Spasm of muscle Social History Tobacco Use [...] REHABILITATE THE THORACIC REGIONS. Enoc Blanca DC FF COMPILING CLERK documented in this encounter Plan of Treatment Not on filedocumented as of this encounter Visit Diagnoses Diagnosis Nonallopathic lesion of sacral region, n ot elsewhere classified - Primary Nonallopathic lesion of thoracic region, not elsewhere classified Nonallopathic lesion of cervical region, not elsewhere classified Spasm of muscle documented in this encounter Care Teams Woven Wood Shade Assembler Relationship Specialty Start Date End Date Padmini Park PA-C PCP - General Family Practice 04/05/12 01/19/16 documented as of this encounter
--- OUTSIDE RECORDS SUMMARY | 2022-04-03 07:08 | XMS_ITS | Encounter Summary ---
:1970 Author Organization [employer] Address [address] [place] [address] Care Team Providers Name Role Phone Padmini Park PA-C Primary Care Provider Reason for Visit Reason Comments NECK PAIN BACK PAIN BACK PAIN, LOW Encounter Details Date Type Department Care Team Description 08/05/2014 Office Visit [facility], Nonallopathic lesion of sacr al region, not elsewhere classified (Primary Dx); [address] Enoc Lazaro [place] Nonallopathic lesion of thor acic region, not elsewhere classified; [place] [address] Nonallopathic lesion of cerv ical region, not elsewhere classified; [phone] Spasm of muscle Social History Tobacco Use Types Packs/Day Years Used Date Smoking Tobacco: Never Smokeless Tobacco: Never Alcohol Use Standard Drinks/Week Comments Yes 0 (1 standard drink = 0.6 oz pure alcoho l) occasional Sex Assigned at Date Recorded Not on file documented as of this encounter Progress Notes Enoc Blanca DC - 08/05/2014 1:06 PM CDT [...] muscle documented in this encounter Care Teams Model Technician Relationship Specialty Start Date End Date Padmini Park PA-C PCP - General Family Practice 04/05/12 01/19/16 documented as of this encounter
--- OUTSIDE RECORDS SUMMARY | 2022-04-03 07:08 | XMS_ITS | Encounter Summary ---
:1970 Author Organization [employer] Address [address] [place] [address] Care Team Providers Name Role Phone Padmini Park PA-C Primary Care Provider Reason for Visit Reason Comments HEADACHE NECK PAIN BACK PAIN Encounter Details Date Type Department Care Team Description 02/04/2014 Office Visit [facility], Nonallopathic lesion of sacr al region, not elsewhere classified (Primary Dx); [address] Enoc Lazaro [place] Nonallopathic lesion of thor acic region, not elsewhere classified; [place] [id number] Nonallopathic lesion of cerv ical region, not elsewhere classified; [phone] Spasm of muscle Social History Tobacco Use Types Packs/Day Years Used Date Smoking Tobacco: Never Smokeless Tobacco: Never Alcohol Use Standard Drinks/Week Comments Yes 0 (1 standard drink = 0.6 oz pure alcoho l) occasional Sex Assigned at Date Recorded Not on file documented as of this encounter Progress Notes Enoc Blanca DC - 02/04/2014 3:22 PM CDT Marla Cuellar is 43 yr [...] muscle documented in this encounter Care Teams Menhaden Vessel Pilot Relationship Specialty Start Date End Date Padmini Park PA-C PCP - General Family Practice 04/05/12 01/19/16 documented as of this encounter
--- OUTSIDE RECORDS SUMMARY | 2022-04-03 07:08 | XMS_ITS | Encounter Summary ---
:1970 Author [facility] Address [address] [place] [address] Care Team Providers Name Role Phone Padmini Park PA-C Primary Care Provider Reason for Visit Reason Comments SHOULDER PAIN Encounter Details Date Type Department Care Team Description 11/26/2013 Office Visit [facility] Qian-Rosales Bolden in (Primary Dx); Medicine Rita Dick MD Left shoulder pain [address] [place], [place] [address] [address] [place], [place] [phone] [address] Social History Tobacco Use Types Packs/Day Years [...] flexion and movement. 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 Past Medical History: Reviewed in [employer]. Allergies: Reviewed in [employer]. Medications: Reviewed in [employer]. 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 ROS: Patient denies for , as she [...] of motion and symmetric strength x4 extremities. Bullard Operator strength 5/5 bilaterally. Intact, symmetric reflexes in [...] needed for muscle spasm, as prescribed in [facility]. Do not drive within 8 hours of taking this medication. Follow up with primary MD in 1-2 weeks if continued symptoms, sooner PRN. Schedule Physical Therapy, as ordered in [facility]. Follow up immediately if: chest pain; shortness [...] region documented in this encounter Care Teams Fast Food Crew Lead Relationship Specialty Start Date End Date Padmini Park PA-C PCP - General Family Practice 04/05/12 01/19/16 documented as of this encounter
--- OUTSIDE RECORDS SUMMARY | 2022-04-03 07:08 | XMS_ITS | Encounter Summary ---
:1970 Author Organization [employer] Address [address] [place] [address] Care Team Providers Name Role Phone Padmini Park PA-C Primary Care Provider Reason for Visit Reason Comments Appt. Needed Encounter Details Date Type Department Care Team Description 11/02/2014 Telephone [facility] Eulalia Alvarez MD Appt. Needed Services-DIRECTOR INSTRUCTIONAL MATERIAL [address] [address] [address] [place] [address] [phone] Social History Tobacco Use Types Packs/Day Years [...] pain and was advised to f/u with NON DESTRUCTIVE TESTING SPECIALIST. Appt scheduled documented in this encounter Plan of Treatment Not on filedocumented as of this encounter Visit Diagnoses Not on filedocumented in this encounter Care Teams Donor Floor Technician Relationship Specialty Start Date End Date Padmini Park PA-C PCP - General Family Practice 04/05/12 01/19/16 documented as of this encounter
--- OUTSIDE RECORDS SUMMARY | 2022-04-03 07:08 | XMS_ITS | Encounter Summary ---
:1970 Author Organization [employer] Address [address] [place] [address] Care Team Providers Name Role Phone Padmini Park PA-C Primary Care Provider Reason for Visit Reason Comments ANXIETY Encounter Details Date Type Department Care Team Description 09/17/2013 Office Visit [facility]ri, Lissa A, Jessy y (Primary Dx); Medicine DO [facility] [address] [facility] [address] [place] [address] [phone] Social History Tobacco Use Types Packs/Day Years [...] unspecified documented in this encounter Care Teams Instructional Technology Teacher Relationship Specialty Start Date End Date Padmini Park PA-C PCP - General Family Practice 04/05/12 01/19/16 documented as of this encounter
--- OUTSIDE RECORDS SUMMARY | 2022-04-03 07:08 | XMS_ITS | Encounter Summary ---
:1970 Author Organization [email or web address] Address [address] [place] [address] Care Team Providers Name Role Phone Padmini Park PA-C Primary Care Provider Reason for Visit Reason Comments RESULTS, TEST Encounter Details Date Type Department Care Team Description 09/12/2013 Telephone Chirag Chopra PA-C RESULTS, TEST [address] [place] [address] [place] [address] [phone] (Wo rk) Social History Tobacco Use Types Packs/Day Years Used Date Smoking Tobacco: Never Smokeless Tobacco: Never Alcohol Use Standard Drinks/Week Comments Yes 0 (1 standard drink = 0.6 oz pure alcoho l) occasional Sex Assigned at Date Recorded Not on file documented as of this encounter Nursing Notes Nilam Dawkins LPN - 09/12/2013 3:40 PM CDT Patient calling back, lab and xray results were given. Sofie Bryan RN - 09/12/2013 2:14 PM CDT Left message to call back [phone] Sabra Mendoza - 09/12/2013 2:08 PM CDT LAB/RADIOLOGY RESULTS/REQUESTS Name of Clinician: Dr. Metzger Results: What test result is needed?: lab and xray When and Where was test done?: [facility] 09/11/2013 Who ordered test?: Dr. Metzger OR Request for Test/Order What test is needed and when?: Why is test needed/requested? documented in this encounter Plan of Treatment Not on filedocumented as of this encounter Visit Diagnoses Not on filedocumented in this encounter Care Teams Racecar Driver Relationship Specialty Start Date End Date Padmini Park PA-C PCP - General Family Practice 04/05/12 01/19/16 documented as of this encounter
--- OUTSIDE RECORDS SUMMARY | 2022-04-03 07:08 | XMS_ITS | Encounter Summary ---
:1970 Author Organization [employer] Address [address] [place] [address] Care Team Providers Name Role Phone Padmini Park PA-C Primary Care Provider Reason for Visit Reason Comments NECK PAIN BACK PAIN Encounter Details Date Type Department Care Team Description 05/27/2014 Office Visit [facility], Nonallopathic lesion of sacr al region, not elsewhere classified (Primary Dx); [address] Enoc Lazaro [place] Nonallopathic lesion of thor acic region, not elsewhere classified; [place] [address] Nonallopathic lesion of cerv ical region, not elsewhere classified; [phone] Spasm of muscle Social History Tobacco Use Types Packs/Day Years Used Date Smoking Tobacco: Never Smokeless Tobacco: Never Alcohol Use Standard Drinks/Week Comments Yes 0 (1 standard drink = 0.6 oz pure alcoho l) occasional Sex Assigned at Date Recorded Not on file documented as of this encounter Progress Notes Enoc Blanca DC - 05/27/2014 8:47 AM CST Subjective Keara Cuellar is 43 [...] REHABILITATE [facility]. Enoc Blanca DC S ROOM CLERK documented in this encounter Plan of Treatment Not on filedocumented as of this encounter Visit Diagnoses Diagnosis Nonallopathic lesion of sacral region, n ot elsewhere classified - Primary Nonallopathic lesion of thoracic region, not elsewhere classified Nonallopathic lesion of cervical region, not elsewhere classified Spasm of muscle documented in this encounter Care Teams Title 1 Tutor Relationship Specialty Start Date End Date Padmini Park PA-C PCP - General Family Practice 04/05/12 01/19/16 documented as of this encounter
--- OUTSIDE RECORDS SUMMARY | 2022-04-03 07:08 | XMS_ITS | Encounter Summary ---
:1970 Author Organization [employer] Address [address] [place] [address] Care Team Providers Name Role Phone Padmini [...] acic region, not elsewhere classified; [place] [address] Nonallopathic lesion of cerv ical region, not elsewhere classified; [phone] Spasm of muscle Social History Tobacco Use [...] DECREASE PAIN AND REHABILITATE THE [place]AC[facility]. Eonc Blanca DC documented in this encounter Plan of Treatment Not on filedocumented as of this encounter Visit Diagnoses Diagnosis Nonallopathic lesion of sacral region, n ot elsewhere classified - Primary Nonallopathic lesion of thoracic region, not elsewhere classified Nonallopathic lesion of cervical region, not elsewhere classified Spasm of muscle documented in this encounter Care Teams Book Store Associate Relationship Specialty Start Date End Date Padmini Park PA-C PCP - General Family Practice 04/05/12 01/19/16 documented as of this encounter
--- OUTSIDE RECORDS SUMMARY | 2022-04-03 07:08 | XMS_ITS | Encounter Summary ---
:1970 Author Organization [facility] Address [address] [place] [address] Care Team Providers Name Role Phone Padmini Park PA-C Primary Care Provider Encounter Details Date Type Department Care Team Description 01/07/2014 Imaging [facility] Breast cancer screening [address] [place] [address] Social History Tobacco Use Types [...] Follow Up Mammogram in 1 year - [facility] unique The results and recommendations of this examination will be communicated to the patient by the [facility] and we will attempt to schedule any recommended imaging follow up with the patient. BJ Narrative 01/07/2014 1:57 PM CDT Compared to: 09/26/2012 MM Mammogram Scr eening Bilateral W Cad, 08/22/2011 Mammogram Comparison is made to outside films from 05/16/2006 ([facility], [place]) FINDINGS: Bilateral screening mammogram was performed. There [...] is made to outside films from 05/16/2006 ([facility] [place]) FINDINGS: Bilateral screening mammogram was performed. There [...] be communicated to the patient by the [facility] and we will attempt to schedule any recommended imaging follow up with the patient. LARISSA Chirag Metzger PA-C RAD KVNG documented in this encounter Visit Diagnoses Diagnosis Breast cancer screening Breast screening, unspecified documented in this encounter Care Teams Butt Presser Relationship Specialty Start Date End Date Padmini Park PA-C PCP - General Family Practice 04/05/12 01/19/16 documented as of this encounter
--- OUTSIDE RECORDS SUMMARY | 2022-04-03 07:09 | XMS_ITS | Encounter Summary ---
:1970 Author Organization [employer] Address [address] [place] [address] Care Team Providers Name Role Phone Padmini Park PA-C Primary Care Provider Reason for Visit Reason Comments Abdominal Pain Encounter Details Date Type Department Care Team Description 06/24/2013 Nurse Triage Chirag Chopra PA-C Abdominal Pain [address] [place] [address] [place] [address] [phone] (Wo rk) Social History Tobacco Use Types Packs/Day Years Used Date Smoking Tobacco: Never Smokeless Tobacco: Never Alcohol Use Standard Drinks/Week Comments Yes 0 (1 standard drink = 0.6 oz pure alcoho l) occasional Sex Assigned at Date Recorded Not on file documented as of this encounter Nursing Notes Ameena Reese RN - 06/24/2013 1:12 PM CST Protocol: ABDOMINAL PAIN - [id number] Affirmative: SEVERE abdominal pain (e.g., excruciating) Disposition [...] with any questions, concerns, or worsening symptoms. EL REGISTERED NURSE NICU documented in this encounter Plan of Treatment Not on filedocumented as of this encounter Visit Diagnoses Not on filedocumented in this encounter Care Teams Adobe Maker Relationship Specialty Start Date End Date Padmini Park PA-C PCP - General Family Practice 04/05/12 01/19/16 documented as of this encounter
--- OUTSIDE RECORDS SUMMARY | 2022-04-03 07:09 | XMS_ITS | Encounter Summary ---
:1970 Author Organization [employer] Address [address] [place] [address] Care Team Providers Name Role Phone Padmini Park PA-C Primary Care Provider Reason for Visit Reason Comments Questions Encounter Details Date Type Department Care Team Description 12/03/2012 Telephone Chirag Chopra PA-C Questions [address] [place] [address] [place] [address] [phone] (Wo rk) Social History Tobacco Use Types [...] on filedocumented in this encounter Care Teams .Net Architect Relationship Specialty Start Date End Date Padmini Park PA-C PCP - General Family Practice 04/05/12 01/19/16 documented as of this encounter
--- OUTSIDE RECORDS SUMMARY | 2022-04-03 07:09 | XMS_ITS | Encounter Summary ---
:1970 Author Organization [employer] Address [address] [place] [address] Care Team Providers Name Role Phone Padmini Park PA-C Primary Care Provider Encounter Details Date Type Department Care Team Description 09/11/2013 Lab Visit [facility] Thigh pain [address] [place], [place] [id number] Social History Tobacco Use Types Packs/Day Years [...] - 09/11/2013 2:18 PM CDT Performed at [facility], [address] [place] [address] Chirag Metzger PA-C LAB_1 Performing Organization Address [...] - 09/11/2013 7:01 PM CDT Performed at [facility], [address] [place] [address] Chirag Metzger PA-C LAB_1 Performing Organization Address [facility] Phon e Number HP CONVERSION BUN (09/11/2013 1:52 PM CDT) athologist Signature Blood Urea <10 5 - 26 HP CONVERSION Nitrogen mg/dL Specimen Anatomical Collection Method Collection Time Receive d Time (Source) Location / / Volume Laterality 09/11/2013 1:52 PM 4 4:46 CDT PM CDT Narrative HP CONVERSION - 09/11/2013 7:01 PM CDT Performed at [facility], [address] [place] [address] Chirag Metzger PA-C LAB_1 Performing Organization Address [facility] Phon e Number HP CONVERSION Electrolyte Panel [...] - 09/11/2013 7:01 PM CDT Performed at [facility], [address] [place] [address] Chirag Metzger PA-C LAB_1 Performing Organization Address [facility] Phon e Number HP CONVERSION Calcium (09/11/2013 1:52 PM CDT) athologist Signature Calcium 9.1 8.5 - 10.5 HP CONVERSION mg/dL Specimen Anatomical Collection Method Collection Time Receive d Time (Source) Location / / Volume Laterality 09/11/2013 1:52 PM 4 4:46 CDT PM CDT Narrative HP CONVERSION - 09/11/2013 7:01 PM CDT Performed at [facility], [address] [place] [address] Chirag Metzger PA-C LAB_1 Performing Organization Address City/[facility] Phon e Number HP CONVERSION TSH AND FREE T4 (FRT4 IF TSH ABNORM) (09/11/2013 1:52 PM CDT) athologist Signature Thyroid 1.01 0.20 - HP CONVERSION Stimulating 4.50 Hormone Specimen Anatomical Collection Method Collection Time Receive d Time (Source) Location / / Volume Laterality 09/11/2013 1:52 PM 4 6:32 CDT PM CDT Chirag Metzger PA-C LAB_1 Performing Organization Address City/[facility] Phon e Number HP CONVERSION CK, Total (09/11/2013 1:52 PM CDT) athologist Signature Creatine Kinase 78 0 - 225 HP CONVERSION U/L Specimen Anatomical Collection Method Collection Time Receive d Time (Source) Location / / Volume Laterality 09/11/2013 1:52 PM 4 4:46 CDT PM CDT Narrative HP CONVERSION - 09/11/2013 7:01 PM CDT Performed at [facility], [address] [id number] Chirag MOREAU-C LAB_1 Performing Organization Address [facility] Phon e Number HP CONVERSION ESR (09/11/2013 1:52 PM CDT) [facility] Method Time Signature Sedimentation Rate 11 0 - 20 HP CONVERSI ON Specimen Anatomical Collection Method Collection Time Receive d Time (Source) Location / / Volume Laterality 09/11/2013 1:52 PM 4 1:52 CDT PM CDT Narrative HP CONVERSION - 09/11/2013 3:39 PM CDT Performed at [facility], [address] [place] [address] Chirag Metzger PA-C LAB_1 Performing Organization Address [facility] Phon e Number HP CONVERSION Complete Blood [...] - 09/11/2013 2:18 PM CDT Performed at [facility], [address] [place] [address] Chirag Metzger PA-C LAB_1 Performing Organization Address City/State/ZIP Code Phon e Number HP CONVERSION documented in this encounter Visit Diagnoses Diagnosis Thigh pain Pain in limb documented in this encounter Care Teams Cloth Neutralizer Relationship Specialty Start Date End Date Padmini Park PA-C PCP - General Family Practice 04/05/12 01/19/16 documented as of this encounter
--- OUTSIDE RECORDS SUMMARY | 2022-04-03 07:09 | XMS_ITS | Encounter Summary ---
:1970 Author Organization [employer] Address [address] [place] [address] Care Team Providers Name Role Phone Padmini Park PA-C Primary Care Provider Reason for Visit Reason Comments Cough Encounter Details Date Type Department Care Team Description 07/30/2013 Office Visit Chirag Chopra, Persistent cough (Primary Dx ); [address] PA-C Breast cancer screening; [place] [address] [address] Ovarian cyst [phone] [place] [id number] Social History Tobacco Use Types Packs/Day Years [...] 07/30/2013 3:50 PM CDT Please call the [facility] [employer] dept. at [phone] to schedule your appointment. documented in this [...] past. She was seen at an in [place] in early June for what she thought was a recurrence of sigmoid diverticulitis; however, her CT scan was negative for diverticulitis at this most recent visit, positive for ovarian cyst. She believes it was her left ovary. She was given pain medication and advised to follow-up with college football coach. She has not yet consulted with the [...] a couple of weeks, and then see college football coach in consult after to discuss the painful ovarian cyst she had been diagnosed with in [place] early Jun 2013. The patient was discharged ambulatory and in stable condition. documented in this encounter Plan of Treatment Not on filedocumented as of this encounter Visit Diagnoses Diagnosis Persistent cough - Primary Cough Breast cancer screening Breast screening, unspecified Ovarian cyst Other and unspecified ovarian cyst documented in this encounter Care Teams Detective Bowling Alley Relationship Specialty Start Date End Date Park, Padmini L, PA-C PCP - General Family Practice 04/05/12 01/19/16 documented as of this encounter
--- OUTSIDE RECORDS SUMMARY | 2022-04-03 07:09 | XMS_ITS | Encounter Summary ---
:1970 Author Organization [employer] Address [address] [place] [address] Care Team Providers Name Role Phone Padmini Park PA-C Primary Care Provider Reason for Visit Reason Comments Other Encounter Details Date Type Department Care Team Description 09/19/2012 Telephone Chirag Chopra PA-C Other [address] [place] [address] [place] [address] [phone] (Wo rk) Social History Tobacco Use Types [...] Chirag Metzger would have to speak with helper steel fabrication neurologist direct Juanita Ochoa at [phone] Michelle Gillis - 09/19/2012 2:53 PM CDT Caller would like to speak with a nurse regarding patients referral. Please assist. documented in this encounter Plan of Treatment Not on filedocumented as of this encounter Visit Diagnoses Not on filedocumented in this encounter Care Teams Fats And Oils Loader Relationship Specialty Start Date End Date Padmini Park PA-C PCP - General Family Practice 04/05/12 01/19/16 documented as of this encounter
--- OUTSIDE RECORDS SUMMARY | 2022-04-03 07:09 | XMS_ITS | Encounter Summary ---
:1970 Author Organization [employer] Address [address] [place] [address] Care Team Providers Name Role Phone Padmini Park PA-C Primary Care Provider Reason for Visit Reason Comments Appt. Needed Encounter Details Date Type Department Care Team Description 08/19/2013 Telephone Chirag Chopra PA-C Appt. Needed [address] [place] [address] [place] [phone] (Wo rk) Social History Tobacco Use Types [...] no success. I have sent her a [employer] message with my phone number to call when she is ready to schedule. Karen Whittaker - 08/19/2013 2:36 PM CDT I have left a message for patient to call me at [phone] so that we can get her scheduled for a followup pelvic ultrasound. documented in this encounter Plan of Treatment Not on filedocumented as of this encounter Visit Diagnoses Not on filedocumented in this encounter Care Teams Process Control Operator Relationship Specialty Start Date End Date Padmini Park PA-C PCP - General Family Practice 04/05/12 01/19/16 documented as of this encounter
--- OUTSIDE RECORDS SUMMARY | 2022-04-03 07:09 | XMS_ITS | Encounter Summary ---
:1970 Author Organization [employer] Address [address] [place] [address] Care Team Providers Name Role Phone Padmini [...] acic region, not elsewhere classified; [place] [id number] Nonallopathic lesion of cerv ical region, not elsewhere classified; [phone] Spasm of muscle Social History Tobacco Use [...] REHABILITATE THE [facility]. Enoc Blanca DC REPAIRER documented in this encounter Plan of Treatment Not on filedocumented as of this encounter Visit Diagnoses Diagnosis Nonallopathic lesion of sacral region, n ot elsewhere classified - Primary Nonallopathic lesion of thoracic region, not elsewhere classified Nonallopathic lesion of cervical region, not elsewhere classified Spasm of muscle documented in this encounter Care Teams Agricultural Chemicals Inspector Relationship Specialty Start Date End Date Padmini Park PA-C PCP - General Family Practice 04/05/12 01/19/16 documented as of this encounter
--- OUTSIDE RECORDS SUMMARY | 2022-04-03 07:09 | XMS_ITS | Encounter Summary ---
:1970 Author Organization [email or web address] Address [address] [place] [address] Care Team Providers Name Role Phone Padmini Park PA-C Primary Care Provider Reason for Visit Reason Comments Eye Problem Encounter Details Date Type Department Care Team Description 12/04/2012 Office Visit [facility] Cifuentes Conjunctiv itis (Primary Dx); Olivia Dick MD URI (upper respiratory infection) [address] [place] [address] [place] [address] [phone] Social History Tobacco Use Types Packs/Day Years [...] AM CDT Thank you for enrolling in [facility]. Please follow the instructions below to securely access your online medical record. [facility] allows you to send messages to your doctor, view your test results, renewyour prescriptions, schedule appointments, and more. How Do I Sign Up? 1. In your Internet browser, go to: [email or web address] 2. Click on the Enter Activation Code link under the New User? section. You will see the New Member Sign Up page. 3. Enter your [facility] Activation Code exactly as it appears below. You will not need to use this code after you???ve completed the sign-up process. If you do not sign up before the expiration date, youmust request a new code. [facility] Activation Code: [email or web address] Expires: 01/03/2013 10:59 AM 4. Enter the last four digits of your Social Security Number ([id number]) and Date of (mm/dd/yyyy) as indicated and click Next. You will be taken to the next sign-up page. 5. Create a [facility] ID. This will be your [facility] login ID and cannot be changed, so think of one that is secure and easy to remember. 6. Create a [facility] password. You can change your password at any time. 7. Enter your Security Question and Answer. This can be used at a later time if you forget your password. Click Next. 8. Enter your e-mail address. You will receive e-mail notification when new information is availablein [facility]. 9. Click Sign In. You can now view your medical record. Additional Information If you have questions, you can call [phone] to talk to our [facility] staff. Remember, [facility] is NOT to be used for urgent [...] itchy. [facility] a dry cough [...] 0 ??? Oral Medication Containers (SHARPS CONTAINER) [facility] to dispose of syringes and needles 1 [...] site documented in this encounter Care Teams Oxide Furnace Tender Relationship Specialty Start Date End Date Padmini Park PA-C PCP - General Family Practice 04/05/12 01/19/16 documented as of this encounter
--- OUTSIDE RECORDS SUMMARY | 2022-04-03 07:09 | XMS_ITS | Encounter Summary ---
:1970 Author Organization [employer] Address [address] [place] [address] Care Team Providers Name Role Phone Padmini Park PA-C Primary Care Provider Reason for Visit Reason Comments Cough Encounter Details Date Type Department Care Team Description 12/02/2012 Hospital Encounter [facility] Vanita Throat discomfort (Primary Dx); Jong Willoughby MD Cough; [address] [address] Social History Tobacco Use Types [...] Filed: 12/04/122129 Note Time: 12/03/12999 Status: Signed Metal Reed Tuner: Vanita Escalante MD (Physician) NAME: KEARA ROB MR#: [id number] CSN: [id number] AUTHENTICATING CLINICIAN: Vanita Escalante MD CONFIRM #: [id number] LOC: 520 URGENT CARE PROGRESS NOTE DATE [...] PAST MEDICAL HISTORY: Migraine. MEDICATIONS: Reviewed in [facility]. ALLERGIES: None. PHYSICAL EXAMINATION: Temperature 97.7, blood [...] course of Keflex at this point per [facility]. She is also requesting a prescription for [...] or no improvement. [id number] C: CONFIRM #: [id number] documented in this encounter Miscellaneous Notes Medication [...] BETA STREP FOLLOWUP (12/02/2012 1:39 PM CDT) [facility] gist Method Time Signature Source Throat HP [...] (12/02/2012 12:39 PM CDT) Analysis Performed At [facility] logist Time Signature Strep A Negative Negative HP CONVERSION Antigen Strep A Source Throat: HP CONVERSION Specimen Anatomical Collection Method Collection Time Receive d Time (Source) Location / / Volume Laterality 12/02/2012 12:39 12/02/2012 1:39 PM CDT PM CDT Narrative HP CONVERSION - 12/02/2012 1:41 PM CDT Performed at [facility], [address] [place] [address] Vanita Escalante MD LAB_1 Performing Organization Address City/State/ZIP Code Phon e Number HP CONVERSION documented in this encounter Visit Diagnoses Diagnosis Throat discomfort - Primary Throat pain Cough Tonsillitis Acute tonsillitis Triage Assessment Note - Marti Cruz RN - 12/02/2012 12:16 PM CDT x2 days, thick/yellow-feels stuck in throat, sore throat, body aches, headache, left side of nose congested, left ear painful documented in this encounter Care Teams Wirer Relationship Specialty Start Date End Date Padmini Park PA-C PCP - General Family Practice 04/05/12 01/19/16 documented as of this encounter
--- OUTSIDE RECORDS SUMMARY | 2022-04-03 07:09 | XMS_ITS | Encounter Summary ---
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 P TRUCK DRIVER documented in this encounter Plan of Treatment Not on filedocumented as of this encounter Visit Diagnoses Diagnosis Rash - Primary Rash and other nonspecific skin eruption documented in this encounter Care Teams Ring Sorter Relationship Specialty Start Date End Date Padmini Park PA-C PCP - General Family Practice 04/05/12 01/19/16 documented as of this encounter
--- OUTSIDE RECORDS SUMMARY | 2022-04-03 07:09 | XMS_ITS | Encounter Summary ---
:1970 Author Organization [facility] Address [address] [place] [address] Care Team Providers Name Role Phone Padmini Park PA-C Primary Care Provider Reason for Visit Reason Comments Letter Encounter Details Date Type Department Care Team Description 01/08/2013 Notes/Orders [facility] 3931 Ruy Franco RN Neurology 6490 [facility] [address] [place], [place] [address] [place] [address] Social History Tobacco Use Types Packs/Day Years [...] 01/08/13 RE: Keara Cuellar : 68 MR#: [id number] To whom it may concern: Per request of Ms. Cuellar I am providing you with a brief summary of the patients neurological condition. I am treating Ms. Cuellar for chronic migraine headaches at the Neurology department at [facility]. With a comprehensive approach [...] on filedocumented in this encounter Care Teams Doubler Operator Relationship Specialty Start Date End Date Padmini Park PA-C PCP - General Family Practice 04/05/12 01/19/16 documented as of this encounter
--- OUTSIDE RECORDS SUMMARY | 2022-04-03 07:09 | XMS_ITS | Encounter Summary ---
:1970 Author Organization [employer] Address [address] [place] [address] Care Team Providers Name Role Phone Padmini Park PA-C Primary Care Provider Reason for Visit Reason Comments Refill Encounter Details Date Type Department Care Team Description 11/12/2012 Telephone Chirag Chopra PA-C Refill [address] [place] [id number] [place] ID [id number] (Wo rk) Social History Tobacco Use Types Packs/Day Years Used Date Smoking Tobacco: Never Smokeless Tobacco: Never Alcohol Use Standard Drinks/Week Comments Yes 0 (1 standard drink = 0.6 oz pure alcoho l) occasional Sex Assigned at Date Recorded Not on file documented as of this encounter Nursing Notes Barb Peter LPN - 11/12/2012 9:24 AM CDT Pt informed that rx has been faxed. Chirag Metzger PA-C - 11/12/2012 9:04 AM CDT Rx faxed Sofie Bryan RN - 11/12/2012 8:44 AM CDT DOES NOT MEET REQUIREMENTS FOR REFILL Reason: medication not on approved RN refill list Last visit with PCP: qualifying visit on 09/17/12 Requesting call when approved. Keara Cuellar (Self) [phone] (H) vm y Michelle Gillis - 11/12/2012 8:39 AM CDT Patient would like a call back when script is faxed to pharmacy. Please assist. documented in this encounter Plan of Treatment Not on filedocumented as of this encounter Visit Diagnoses Not on filedocumented in this encounter Care Teams Senior Quality Analyst Relationship Specialty Start Date End Date Padmini Park PA-C PCP - General Family Practice 04/05/12 01/19/16 documented as of this encounter
--- OUTSIDE RECORDS SUMMARY | 2022-04-03 07:09 | XMS_ITS | Encounter Summary ---
:1970 Author Organization [employer] Address [address] [place] [address] Care Team Providers Name Role Phone Padmini Park PA-C Primary Care Provider Reason for Visit Reason Comments RECTAL PAIN Encounter Details Date Type Department Care Team Description 01/05/2013 Hospital Encounter [place] Khai Lopes rticulitis of rectosigmoid (Primary Dx); Care Nikolay S, DO Rectal pain [address] [place] [address] [address] [phone] Social History Tobacco Use Types Packs/Day Years [...] signed by Nikolay Lopes DO at 01/08/13 1518 Author: Nikolay Lopes DO Service: (none) Author Type: Physician Filed: 01/08/13 7798 Note Time: 01/05/13 1437 Status: Signed Motor Setter: Nikolay Lopes DO (Physician) NAME: KEARA ROB MR#: [id number] CSN: [id number] AUTHENTICATING CLINICIAN: Nikolay Lopes DO CONFIRM #: [id number] LOC: 520 URGENT CARE PROGRESS NOTE DATE [...] kidney pain. ALLERGIES: None. MEDICATIONS: Reviewed on [facility]. PAST MEDICAL HISTORY: She has a history [...] also gave her a prescription for some [place] 5 mg 18 tablets, 1 or 2 every 5-6 hours p.r.n. pain. She was discharged to home in stable condition. LSS:MEDQ C: CONFIRM #: [id number] Charissa Larsen - 01/05/2013 1:07 PM CDT [...] Blood Count-No Diff (01/05/2013 1:17 PM CDT) [facility] gist Method Time Signature White Blood Cell [...] - 01/05/2013 1:24 PM CDT Performed at [facility], [address] [place] [address] Nikolay Lopes DO LAB_1 Performing Organization Address City/State/ZIP Code Phon e Number HP CONVERSION documented in this encounter Visit Diagnoses Diagnosis Diverticulitis of rectosigmoid - Primary Diverticulitis of colon (without mention of hemorrhage) Rectal pain Anal or rectal pain Triage Assessment Note - Perlita mSiley RN - 01/05/2013 11:31 AM CDT Has had an ultrasound for pain approximately 6 mths ago. Pain has returned for one week. Throbbing sensation. History of diverticulitis and had work up done here. documented in this encounter Care Teams Extractions Technician Relationship Specialty Start Date End Date Padmini Park PA-C PCP - General Family Practice 04/05/12 01/19/16 documented as of this encounter
--- OUTSIDE RECORDS SUMMARY | 2022-04-03 07:09 | XMS_ITS | Encounter Summary ---
:1970 Author Organization [employer] Address [address] [place] [address] Care Team Providers Name Role Phone Padmini Park PA-C Primary Care Provider Reason for Visit Reason Comments LAB RESULTS Encounter Details Date Type Department Care Team Description 06/24/2013 Nurse Triage Chirag Chopra PA-C LAB RESULTS [address] [place] [address] [place] [address] [phone] (Wo rk) Social History Tobacco Use Types Packs/Day Years Used Date Smoking Tobacco: Never Smokeless Tobacco: Never Alcohol Use Standard Drinks/Week Comments Yes 0 (1 standard drink = 0.6 oz pure alcoho l) occasional Sex Assigned at Date Recorded Not on file documented as of this encounter Nursing Notes Liza Ny RN - 06/24/2013 9:19 PM CST [facility] eligibility technician. at [facility] calling for CT scan of abdomen done November of 2012 to compare with their findings. He needs the images and the report. I told him I could send the report but notthe images which would have to be done by Medical Records. He can be reached at [phone]. T SPECIALIST documented in this encounter Plan of Treatment Not on filedocumented as of this encounter Visit Diagnoses Not on filedocumented in this encounter Care Teams Hematology Specialist Relationship Specialty Start Date End Date Padmini Park PA-C PCP - General Family Practice 04/05/12 01/19/16 documented as of this encounter
--- OUTSIDE RECORDS SUMMARY | 2022-04-03 07:09 | XMS_ITS | Encounter Summary ---
:[address] [employer] Address [address] [place] [address] Care Team Providers Name Role Phone Padmini Park PA-C Primary Care Provider Reason for Visit Reason Comments Headache Encounter Details Date Type Department Care Team Description 09/20/2012 Initial Consult [facility] [place], Migraine , chronic, 3931 Neurology MD Dominique without aura, [address] in tractable, with [address] status migrainosus [place], [place] ([place]x) [phone] Social History Tobacco Use Types Packs/Day Years [...] 4. Occipital nerve blocks with Dr. Hernandez. [phone] [facility], [address] [place] September 26 check in at 7:50am Dr. [...] signed by Dominique Victor MD at 09/20/12 3346 Author: Dominique Victor MD Service: (none) Author Type: Physician Filed: 09/20/12 1430 Note Time: 09/20/12 1352 Status: Signed Operation Research Analyst: Dominique Victor MD (Physician) NAME: KEARA CUELLAR MR#: [id number] CSN: [id number] AUTHENTICATING CLINICIAN: Dominique Victor MD CONFIRM #: [id number] LOC: 223 CLINIC CONSULTATION DATE OF CONSULTATION: [...] she sought evaluation by a neurologist in [place]. Was recommended to discontinue ibuprofen and was [...] here with her, and one lives in [place]. She moved here from [place] in March of 2012 because of the [...] agreed to proceed. DS:MEDQ C: CONFIRM #: [id number] documented in this encounter Plan of Treatment Not on filedocumented as of this encounter Visit Diagnoses Diagnosis Migraine, chronic, without aura, intract able, with status migrainosus - Primary Chronic migraine without aura, with intr actable migraine, so stated, with status migrainosus documented in this encounter Care Teams Global Lead Relationship Specialty Start Date End Date Padmini Park PA-C PCP - General Family Practice 04/05/12 01/19/16 documented as of this encounter
--- OUTSIDE RECORDS SUMMARY | 2022-04-03 07:09 | XMS_ITS | Encounter Summary ---
:1970 Author Organization [employer] Address [address] [place] [address] Care Team Providers Name Role Phone Padmini [...] acic region, not elsewhere classified; [place] [address] Nonallopathic lesion of cerv ical region, not elsewhere classified; [phone] Spasm of muscle Social History Tobacco Use [...] classified [place]; SP 3-4 RGNS (54462) 2. Nonallopathic lesion of thoracic region, not elsewhere classified [place]; SP 3-4 RGNS (50555) 3. Nonallopathic lesion of cervical region, not elsewhere classified [place]; SP 3-4 RGNS (59638) 4. Spasm of muscle [place]; SP 3-4 RGNS (97625) Plan: Articular adjustments in the cervical, thoracic [...] muscle documented in this encounter Care Teams Emergency Veterinary Assistant Relationship Specialty Start Date End Date Padmini Park PA-C PCP - General Family Practice 04/05/12 01/19/16 documented as of this encounter
--- OUTSIDE RECORDS SUMMARY | 2022-04-03 07:09 | XMS_ITS | Encounter Summary ---
:1970 Author Organization [employer] Address [address] [place] [address] Care Team Providers Name Role Phone Padmini Park PA-C Primary Care Provider Reason for Visit Reason Comments Abdominal Pain Encounter Details Date Type Department Care Team Description 12/16/2012 Office Visit [facility], Savannah M, LLQ abdominal pain [address] [place] (Primary Dx) [place] [address] [address] [facility] [phone] [place] [address] (Wo rk) Social History Tobacco Use Types [...] quadrant documented in this encounter Care Teams Cryptographic Clerk Relationship Specialty Start Date End Date Padmini Park PA-C PCP - General Family Practice 04/05/12 01/19/16 documented as of this encounter
--- OUTSIDE RECORDS SUMMARY | 2022-04-03 07:09 | XMS_ITS | Encounter Summary ---
:1970 Author Organization [email or web address] Address [address] [place] [address] Care Team Providers Name Role Phone Padmini Park PA-C Primary Care Provider Reason for Visit Reason Comments CONSULT Encounter Details Date Type Department Care Team Description 02/24/2013 Telephone Chirag Chopra PA-C CONSULT [address] [place] [address] [place] [address] [phone] (Wo rk) Social History Tobacco Use Types [...] advised Chirag Metzger cannot refer outside of [facility]. Advised she has to stay within the [facility] system. She agreed. Please place referral in [facility]. Call her back and assist her with scheduling at Keara Cuellar ([facility]) [phone] (H) oklm ok for Sunday Ameena Trejo - 02/24/2013 4:22 PM CDT Referral/Consult Caller Name/Relationship: Primary Care Provider: Chirag Metzger What referral is needed? colonoscopy Why is referral needed? unknown Insurance Carrier[place] Member ID: unknown Appointment already scheduled? [...] Primary documented in this encounter Care Teams Truck Washer Relationship Specialty Start Date End Date Padmini Park PA-C PCP - General Family Practice 04/05/12 01/19/16 documented as of this encounter
--- OUTSIDE RECORDS SUMMARY | 2022-04-03 07:09 | XMS_ITS | Encounter Summary ---
:1970 Author Organization [employer] Address [address] [place] [address] Care Team Providers Name Role Phone Padmini [...] acic region, not elsewhere classified; [place] [address] Nonallopathic lesion of cerv ical region, not elsewhere classified; [phone] Spasm of muscle Social History Tobacco Use [...] classified [place]; SP 3-4 RGNS (37589) 2. Nonallopathic lesion of thoracic region, not elsewhere classified [place]; SP 3-4 RGNS (11769) 3. Nonallopathic lesion of cervical region, not elsewhere classified [place]; SP 3-4 RGNS (38299) 4. Spasm of muscle [place]; SP 3-4 RGNS (55467) Plan: Articular adjustments in the cervical, thoracic [...] muscle documented in this encounter Care Teams Engine Testing Supervisor Relationship Specialty Start Date End Date Padmini Park PA-C PCP - General Family Practice 04/05/12 01/19/16 documented as of this encounter
--- OUTSIDE RECORDS SUMMARY | 2022-04-03 07:09 | XMS_ITS | Encounter Summary ---
:1970 Author Organization [employer] Address [address] [place] [address] Care Team Providers Name Role Phone Padmini Park PA-C Primary Care Provider Encounter Details Date Type Department Care Team Description 09/26/2012 Orders Only HP Claims MD [employer] Contact Bill [address] [place] [address] Mailstop [id number] [phone] (Wo rk) Social History Tobacco Use Types [...] on filedocumented in this encounter Care Teams Ecologist Relationship Specialty Start Date End Date Padmini Park PA-C PCP - General Family Practice 04/05/12 01/19/16 documented as of this encounter
--- OUTSIDE RECORDS SUMMARY | 2022-04-03 07:09 | XMS_ITS | Encounter Summary ---
:1970 Author Organization [employer] Address [address] [place] [address] Care Team Providers Name Role Phone Padmini Park PA-C Primary Care Provider Reason for Visit Reason Comments LEG PAIN Encounter Details Date Type Department Care Team Description 09/11/2013 Office Visit [facility] Chirag Metzger, Thigh pain (Primary [address] [place]) [place] [address] [address] [phone] [place] [id number] Social History Tobacco Use Types Packs/Day Years [...] limb documented in this encounter Care Teams Rainbow Trout Farm Manager Relationship Specialty Start Date End Date Padmini Park PA-C PCP - General Family Practice 04/05/12 01/19/16 documented as of this encounter
--- OUTSIDE RECORDS SUMMARY | 2022-04-03 07:09 | XMS_ITS | Encounter Summary ---
:1970 Author Organization [employer] Address [address] [place] [address] Care Team Providers Name Role Phone Padmini Park PA-C Primary Care Provider Reason for Visit Reason Comments ROUTINE, FOLLOW-UP Upper back/shoulder area. Encounter Details Date Type Department Care Team Description 07/18/2012 Office Visit [facility] [place], Nonallopathic lesion of sacr al region, not elsewhere classified (Primary Dx); [address] [facility] En[place] Nonallopathic lesion of thor acic region, not elsewhere classified; [place] [address] Nonallopathic lesion of cerv ical region, not elsewhere classified; [phone] Spasm of muscle Social History Tobacco Use [...] Comments Blood Pressure 110/75 07/18/2012 8:21 AM METAL NUMERICAL CONTROL PROGRAMMER Pulse 82 07/18/2012 8:21 AM METAL NUMERICAL CONTROL PROGRAMMER Temperature - - Respiratory Rate 24 07/18/2012 8:21 AM METAL NUMERICAL CONTROL PROGRAMMER Oxygen Saturation - - Inhaled Oxygen Concentration - - Weight 76.4 kg (168 lb 6.4 oz) 07/18/2012 8:21 AM METAL NUMERICAL CONTROL PROGRAMMER Height 155.6 cm (5' 1.25) 07/18/2012 8:21 AM METAL NUMERICAL CONTROL PROGRAMMER Body Mass Index 31.56 07/18/2012 8:21 AM METAL NUMERICAL CONTROL PROGRAMMER documented in this encounter Progress Notes Enoc [...] classified [place]; SP 3-4 RGNS (32343) 2. Nonallopathic lesion of thoracic region, not elsewhere classified [place]; SP 3-4 RGNS (68485) 3. Nonallopathic lesion of cervical region, not elsewhere classified [place]; SP 3-4 RGNS (71100) 4. Spasm of muscle [place]; SP 3-4 RGNS (43567) Plan: Articular adjustments in the cervical, thoracic [...] DECREASE PAIN AND REHABILITATE THE THORACIC REGIONS. L NUMERICAL CONTROL PROGRAMMER documented in this encounter Plan of Treatment Not on filedocumented as of this encounter Visit Diagnoses Diagnosis Nonallopathic lesion of sacral region, n ot elsewhere classified - Primary Nonallopathic lesion of thoracic region, not elsewhere classified Nonallopathic lesion of cervical region, not elsewhere classified Spasm of muscle documented in this encounter Care Teams Almond Cutting Machine Tender Relationship Specialty Start Date End Date Padmini Park PA-C PCP - General Family Practice 04/05/12 01/19/16 documented as of this encounter
--- OUTSIDE RECORDS SUMMARY | 2022-04-03 07:09 | XMS_ITS | Encounter Summary ---
:1970 Author Organization [employer] Address [address] [place] [address] Care Team Providers Name Role Phone Padmini [...] acic region, not elsewhere classified; [place] [address] Nonallopathic lesion of cerv ical region, not elsewhere classified; [phone] Spasm of muscle Social History Tobacco Use [...] muscle documented in this encounter Care Teams Development Spec Relationship Specialty Start Date End Date Padmini Park PA-C PCP - General Family Practice 04/05/12 01/19/16 documented as of this encounter
--- OUTSIDE RECORDS SUMMARY | 2022-04-03 07:09 | XMS_ITS | Encounter Summary ---
:1970 Author Organization [employer] Address [address] [place] [address] Care Team Providers Name Role Phone Padmini Park PA-C Primary Care Provider Reason for Visit Reason Comments Follow-up, NOS Encounter Details Date Type Department Care Team Description 03/26/2013 Office Visit [facility], Nonallopathic lesion of sacr al region, not elsewhere classified (Primary Dx); [address] [facility] Enoc [place]az[place] Nonallopathic lesion of thor acic region, not elsewhere classified; [place] [address] Nonallopathic lesion of cerv ical region, not elsewhere classified; [phone] Spasm of muscle Social History Tobacco Use [...] Comments Blood Pressure 127/87 03/26/2013 2:21 PM SOIL SCIENCE TECHNICAL OFFICER Pulse 64 03/26/2013 2:21 PM SOIL SCIENCE TECHNICAL OFFICER Temperature - - Respiratory Rate 12 03/26/2013 2:21 PM SOIL SCIENCE TECHNICAL OFFICER Oxygen Saturation - - Inhaled Oxygen Concentration - - Weight 81.2 kg (179 lb) 03/26/2013 2:21 PM SOIL SCIENCE TECHNICAL OFFICER Height - - Body Mass Index 33.82 [...] REHABILITATE THE THORACIC REGIONS. Enoc [place] SCIENCE TECHNICAL OFFICER documented in this encounter Plan of Treatment Not on filedocumented as of this encounter Visit Diagnoses Diagnosis Nonallopathic lesion of sacral region, n ot elsewhere classified - Primary Nonallopathic lesion of thoracic region, not elsewhere classified Nonallopathic lesion of cervical region, not elsewhere classified Spasm of muscle documented in this encounter Care Teams Laborer Rags Relationship Specialty Start Date End Date Padmini Park PA-C PCP - General Family Practice 04/05/12 01/19/16 documented as of this encounter
--- OUTSIDE RECORDS SUMMARY | 2022-04-03 07:09 | XMS_ITS | Encounter Summary ---
:1970 Author Organization [facility] Address [address] [place] [address] Care Team Providers Name Role Phone Padmini Park PA-C Primary Care Provider Encounter Details Date Type Department Care Team Description 12/16/2012 Lab Visit [facility] LLQ abdominal pain [address] [employer] [place], [place] [id number] Social History Tobacco Use Types Packs/Day Years [...] 12/16/2012 at 4:26 PMResults given at visit HAT MELLOWING MACHINE OPERATOR Miscellaneous - 06/30/2016 5:02 AM CSTNotes Recorded by Savannah Irvin PA-C on 12/16/2012 at 4:26 PMResults given at visit HAT MELLOWING MACHINE OPERATOR Miscellaneous - 06/30/2016 5:02 AM CSTNotes Recorded by Savannah Irvin PA-C on 12/16/2012 at 4:26 PMResults given at visit HAT MELLOWING MACHINE OPERATOR documented in this encounter Plan [...] - 12/16/2012 12:32 PM CDT Performed at [facility], [address] [place] [address], [place] [address] Transcriptions 06/30/2016 5:02 AM CSTNotes Recorded by [...] - 12/16/2012 12:32 PM CDT Performed at [facility], [address] [place] [address] Transcriptions 06/30/2016 5:02 AM CSTNotes Recorded by [...] U Specific 1.025 1.005 - HP CONVERSION [place] 1.030 Urobilinogen Negative Negative HP CONVERSION Urine Eu/dL Specimen Anatomical Collection Method Collection Time Receive d Time (Source) Location / / Volume Laterality Urine: 12/16/2012 12:21 12/16/2012 PM CDT 12:21 PM CDT Narrative HP CONVERSION - 12/16/2012 12:30 PM CDT Performed at [facility], [address] [place] [address] Transcriptions 06/30/2016 5:02 AM CSTNotes Recorded by Savannah Irvin PA-C on 12/16/2012 at 4:26 PMResults given at visit Savannah Irvin PA-C LAB_1 Performing Organization Address City/State/ZIP Code Phon e Number HP CONVERSION documented in this encounter Visit Diagnoses Diagnosis LLQ abdominal pain Abdominal pain, left lower quadrant documented in this encounter Care Teams Arboreal Scientist Relationship Specialty Start Date End Date Padmini Park PA-C PCP - General Family Practice 04/05/12 01/19/16 documented as of this encounter
--- OUTSIDE RECORDS SUMMARY | 2022-04-03 07:09 | XMS_ITS | Encounter Summary ---
:1970 Author Organization [employer] Address [address] [place] [address] Care Team Providers Name Role Phone Padmini Park PA-C Primary Care Provider Reason for Visit Reason Comments HEADACHE,MIGRAINE Encounter Details Date Type Department Care Team Description 09/17/2012 Office Visit Chirag Chopra, Status migrainosus (Primary Dx); [address] PA-C Nausea alone; [place] [address] [address] Headache, migraine [phone] [place] [id number] Social History Tobacco Use Types Packs/Day Years Used Date Smoking Tobacco: Never Smokeless Tobacco: Never Alcohol Use Standard Drinks/Week Comments Yes 0 (1 standard drink = 0.6 oz pure alcoho l) occasional Sex Assigned at Date Recorded Not on file documented as of this encounter Last Filed Vital Signs Vital Sign Reading Time Taken Comments Blood Pressure 118/78 09/17/2012 11:19 AM CDT Pulse 80 09/17/2012 11:19 AM CDT Temperature - - Respiratory Rate - - Oxygen Saturation - - Inhaled Oxygen Concentration - - Weight 76.2 kg (168 lb) 09/17/2012 11:19 AM CDT Height - - Body Mass Index 31.48 07/18/2012 8:21 AM CHAPERON documented in this encounter Progress Notes Chirag Metzger PA-C - 09/18/2012 2:30 PM CDT Clinic Visit Subjective: History of Present Illness: This 42 y.o. female presents today for evaluation of the following concern(s): Migraine headache Headache, migraine Her migraine headache frequency had decreased very nicely with daily topiramate, currently taking 100 mg each evening; however, she started a new job over the last couple of months, and now she is having daily migraine headaches again. The headaches come on during her work day and limit her ability tofunction at work. She gets light sensitivity and nausea with the headaches, typical for her regular migraines. She has asked her employer to try various adjustments with her work station, including adjusting the brightness of her computer screen and trying a magnifying overlay for her computer screen;however, nothing has decreased the frequency of the headaches. She now thinks that the size of the fo nt on her computer screen is what might be causing her symptoms, as she feels she needs to sit closeto the screen in order to read the print accurately. Her employer states that the font/size of font cannot be changed, and has asked that she get a medical statement that this is the trigger so they would have to medicolegally change the font/size of font. Alternatively, she would qualify for disability if the font/size of font cannot be changed. She has currently had a migraine for the last 2 days, with no benefit from use of her rescue triptan. It normally works well for her. She is driving herself today. Past Medical History: Patient Active Problem List Diagnosis ??? Fibroid uterus ??? Syncope, psychogenic ??? Headache, migraine Past Surgical History: Past Surgical History Procedure Laterality Date ??? Hysterectomy 2006 supracervical ??? Breast reduction surgery 2005 ??? section 1991 failure to progress, distress ??? section 1990 failure to progress, distress Adverse Drug Reactions: has no known allergies. Medications: has a current medication list which includes the following prescription(s): cyclobenzaprine, diazepam, ibuprofen, ondansetron, prednisone, rizatriptan, and topiramate. Family History: family history includes Glaucoma in her mother; Lupus in her sister; Rheumatoid arthritis in her sister; and Thyroid Disease in her sister. Social History: Smoking: reports that she has never smoked. She has never used smokeless tobacco. Alcohol: reports that she drinks about 1.8 ounces of alcohol per week. Drugs: reports that she does not use illicit drugs. 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 OBJECTIVE: Vital Signs: BP 118/78 Pulse 80 Wt 168 lb (76.204 kg) General appearance: alert, cooperative, no distress, appears stated age, Head: Normocephalic, without obvious abnormality, atraumatic, Eyes: conjunctivae/corneas clear. PERRL, EOM's intact. Fundi benign, Ears: normal TM's and external ear canals AU, Nose: Nares normal. Septum midline. Mucosa normal. No drainage., Neck: supple, symmetrical, trachea midline, no adenopathy, thyroid: not enlarged, symmetric, no tenderness/mass/nodules and no carotid bruit, Lungs: clear to auscultation bilaterally, Heart: regular rate and rhythm, S1, S2 normal, no murmur, click, rub or gallop and Neurologic: Alert and or iented X 3, normal strength and tone. Normal symmetric reflexes. Normal coordination and gait ASSESSMENT/PLAN: Keara was seen today for migraine. Diagnoses and associated orders for this visit: Status migrainosus - predniSONE (DELTASONE) 10 mg tablet; Take with food. 3 tabs BID x2d, 2 tabs BID x2d, 1 tab BID x2d, done. - ketorolac (TORADOL) injection 60 mg; Inject 2 mLs into the muscle once. - Observed in clinic for 20 minutes after injection without adverse effects. Discussed the purpose of the take-home prescriptions, how to use them, potential benefits, and potential adverse effects. Nausea alone - ondansetron (ZOFRAN-ODT) 8 mg disintegrating tablet; Take 1 tablet by mouth every 8 hours as needed for Nausea or Vomiting. Dissolve tablet on tongue - discussed how to take, potential benefits, and potential adverse effects. Headache, migraine - Ambulatory CON2 referral to Neurology; Future - Discussed her case with neurologist on-call. She will discuss with Dr. Crockett to see if she is willing to work [employer] in sometime in the next couple of weeks, given her inability to work functionally with her migraines. - Letter written for Keara excusing her from work until she can be evaluated in Neurology. Discharged ambulatory and in stable condition. documented in this encounter Miscellaneous Notes Assessment & Plan Note - Chirag Metzger PA-C - 09/18/2012 2:17 PM CDT Her migraine headache frequency had decreased very nicely with daily topiramate, currently taking 100 mg each evening; however, she started a new job over the last couple of months, and now she is having daily migraine headaches again. The headaches come on during her work day and limit her ability tofunction at work. She gets light sensitivity and nausea with the headaches, typical for her regular migraines. She has asked her employer to try various adjustments with her work station, including adjusting the brightness of her computer screen and trying a magnifying overlay for her computer screen;however, nothing has decreased the frequency of the headaches. She now thinks that the size of the fo nt on her computer screen is what might be causing her symptoms, as she feels she needs to sit closeto the screen in order to read the print accurately. Her employer states that the font/size of font cannot be changed, and has asked that she get a medical statement that this is the trigger so they would have to medicolegally change the font/size of font. Alternatively, she would qualify for disability if the font/size of font cannot be changed. She has currently had a migraine for the last 2 days, with no benefit from use of her rescue triptan. It normally works well for her. She is driving herself today. Letter - Chirag Metzger PA-C - 09/17/2012 12:00 AM CDT Return to Work/School Date: 09/17/2012 To Whom It May Concern Keara Cuellar is a patient at [facility]. [] Should take medications as directed on prescription, administered by school personnel [] Was under our care. [x] Was seen in my office for a migraine headache on the above date. [] Was seen in my office for a physical exam on the above date. [] Is unable to participate in sports / physical education [] Is able to return to sports / physical education as of: Exclusions: [] Should refrain from flying because of illness. [] Called for advice concerning an illness and missed: [] Work [] School From To [] Other: Comments: She is excused from work until she can be evaluated through Neurology for her migraine headaches, as well as triggers for migraine as related to work. Signature of / RN ERON documented in this encounter Plan of Treatment Not on filedocumented as of this encounter Visit Diagnoses Diagnosis Status migrainosus - Primary Variants of migraine, not elsewhere clas sified, without mention of intractable migraine without mention of status migra inosus Nausea alone Headache, migraine Migraine, unspecified, without mention o f intractable migraine without mention of status migrainosus documented in this encounter Care Teams Teacher Citizenship Relationship Specialty Start Date End Date Padmini Park PA-C PCP - General Family Practice 04/05/12 01/19/16 documented as of this encounter
--- OUTSIDE RECORDS SUMMARY | 2022-04-03 07:09 | XMS_ITS | Encounter Summary ---
:1970 Author Organization [facility] Address [address] [place] [address] Care Team Providers Name Role Phone Padmini Park PA-C Primary Care Provider Reason for Visit Reason Comments Forms Encounter Details Date Type Department Care Team Description 10/08/2012 Notes/Orders [facility] [address] Ruy Franco RN Neurology [address] [facility] [address] [place], [place] [address] [place] [address] Social History Tobacco Use Types Packs/Day Years Used Date Smoking Tobacco: Never Smokeless Tobacco: Never Alcohol Use Standard Drinks/Week Comments Yes 0 (1 standard drink = 0.6 oz pure alcoho l) occasional Sex Assigned at Date Recorded Not on file documented as of this encounter Progress Notes Madison Franco RN - 10/08/2012 8:58 AM CDT [facility] paperwork/Request for Accomodation papers filled out, signed by Dr. Victor and faxed to [phone], copy sent to [facility] documented in this encounter Plan of Treatment Not on filedocumented as of this encounter Visit Diagnoses Not on filedocumented in this encounter Care Teams Complaint Evaluation Officer Relationship Specialty Start Date End Date Padmini Park PA-C PCP - General Family Practice 04/05/12 01/19/16 documented as of this encounter
--- OUTSIDE RECORDS SUMMARY | 2022-04-03 07:09 | XMS_ITS | Encounter Summary ---
:1970 Author Organization [email or web address] Address [address] [place] [address] Care Team Providers Name Role Phone Padmini Park PA-C Primary Care Provider Encounter Details Date Type Department Care Team Description 09/26/2012 Imaging [place] Mammograp hy Other screening mammogram [address] [place] [address] Social History Tobacco Use Types [...] 08/22/2011 Mammogram and 05/16/2006 (bilateral - [facility] [place] [place]) Bilateral Breast Findings: There are scattered fibroglandular densi ties (25-50%) in the breasts. No significant masses, calcifications or other abnormalities are seen. Procedure Note Art Hernandez MD - 01/12/2016Format ting of this note might be different from the original. Compared to: 08/22/2011 Mammogram and (bilateral - [facility] [place]) Bilateral Breast Findings: There are scattered fibroglandular densi ties (25-50%) in the breasts. No significant masses, calcifications or other abnormalities are seen. IMPRESSION : BIRADS 1 Negative (overall) Follow Up Mamm in 1 Yr. - Both [facility] Chirag Metzger PA-C RAD KVNG documented in this encounter Visit Diagnoses Diagnosis Other screening mammogram documented in this encounter Care Teams Anesthesiologist/Physician Relationship Specialty Start Date End Date Padmini Park PA-C PCP - General Family Practice 04/05/12 01/19/16 documented as of this encounter
--- OUTSIDE RECORDS SUMMARY | 2022-04-03 07:09 | XMS_ITS | Encounter Summary ---
:1970 Author Organization [employer] Address [address] [place] [address] Care Team Providers Name Role Phone Padmini Park PA-C Primary Care Provider Encounter Details Date Type Department Care Team Description 12/16/[address] [address] Scan LLQ abdominal pain (Primary Dx); [address] [facility] [place] [address] Social History Tobacco Use Types [...] and cipro were called to her pharmacy. L FLOW COORDINATOR documented in this encounter Plan of [...] hemorrhage) documented in this encounter Care Teams Grease Man Relationship Specialty Start Date End Date Padmini Park PA-C PCP - General Family Practice 04/05/12 01/19/16 documented as of this encounter
--- OUTSIDE RECORDS SUMMARY | 2022-04-03 07:09 | XMS_ITS | Encounter Summary ---
:1970 Author Organization [employer] Address [address] [place] [address] Care Team Providers Name Role Phone Padmini Park PA-C Primary Care Provider Encounter Details Date Type Department Care Team Description 02/13/2013 Orders Only HP Claims MD [employer] Contact Bill [address] [place] [address] Mailstop [id number] [phone] (Wo rk) Social History Tobacco Use Types [...] filedocumented in this encounter Care Teams Customer Account Specialist Relationship Specialty Start Date End Date Padmini Park PA-C PCP - General Family Practice 04/05/12 01/19/16 documented as of this encounter
--- OUTSIDE RECORDS SUMMARY | 2022-04-03 07:09 | XMS_ITS | Encounter Summary ---
:1970 Author Organization [employer] Address [address] [place] [address] Care Team Providers Name Role Phone Chirag Metzger PA-C Primary Care Provider Encounter Details Date Type Department Care Team Description 09/17/2012 Rosalva Sapp ChiropractMELANY AskewPRACTANNE PT [address] [facility] Enoc [place] DC LIABILITY PAW [place] [...] on filedocumented in this encounter Care Teams Forklift Mechanic Relationship Specialty Start Date End Date Chirag Metzger PA-C PCP - General Physician Supervisor Special Services 07/06/[address] [place] [address] documented as of this encounter
--- OUTSIDE RECORDS SUMMARY | 2022-04-03 07:10 | XMS_ITS | Encounter Summary ---
:1970 Author Organization [employer] Address [address] [place] [address] Care Team Providers Name Role Phone Chirag Metzger PA-C Primary Care Provider Reason for Visit Reason Comments Refill Encounter Details Date Type Department Care Team Description 03/01/2012 Maryill Chirag Chopra PA-C Refill [address] [place] [address] [place] [address] [phone] (Wo rk) Social History Tobacco Use Types [...] CDT Rx at Barb's desk Sofie Bryan, MARTITA - 03/01/2012 9:08 AM CDT Action requested: [...] filling rx. Pharmacy correct. Keara Cuellar (Self) [phone] (H) Naheed Ortega - 03/01/2012 8:59 AM [...] Primary documented in this encounter Care Teams Forepart Rasper Relationship Specialty Start Date End Date Chirag Metzger PA-C PCP - General 08/17/11 04/04/12 [address], [place] [address] documented as of this encounter
--- OUTSIDE RECORDS SUMMARY | 2022-04-03 07:10 | XMS_ITS | Encounter Summary ---
:1970 Author Organization [employer] Address [address] [place] [address] Care Team Providers Name Role Phone Chirag Metzger PA-C Primary Care Provider Reason for Visit Reason Comments URI Encounter Details Date Type Department Care Team Description 09/26/2011 Office Visit Chirag Bo, Tracheobronch itis (Primary Medicine LION Dx) [address] [place] [address] [place] [address] [phone] Social History Tobacco Use Types Packs/Day Years [...] AM CDT Thank you for enrolling in [facility]. Please follow the instructions below to securely access your online medical record. [facility] allows you to send messages to your doctor, view your test results, renewyour prescriptions, schedule appointments, and more. How Do I Sign Up? 1. In your Internet browser, go to: [email or web address] 2. Click on the Sign Up Now link in the Sign In box. You will see the New Member Sign Up page. 3. Enter your [facility] Access Code exactly as it appears below. You will not need to use this code after you???ve completed the sign-up process. If you do not sign up before the expiration date, you must request a new code. [facility] Access Code: [email or web address] Expires: 10/26/11 09:34 AM 4. Enter your Social Security Number ([id number]) and Date of (mm/dd/yyyy) as indicated and click Submit. You will be taken to the next sign- up page. 5. Create a [facility] ID. This will be your [facility] login ID and cannot be changed, so think of one that is secure and easy to remember. 6. Create a [facility] password. You can change your password at any time. 7. Enter your Password Reset Question and Answer. This can be used at a later time if you forget your password. 8. Enter your e-mail address. You will receive e-mail notification when new information is availablein [facility]. 9. Click Sign Up. You can now view your medical record. Additional Information If you have questions, you can call [phone] to talk to our [facility] staff. Remember, [facility] is NOT to be used for urgent [...] ronic documented in this encounter Care Teams Racehorse Trainer Relationship Specialty Start Date End Date Chirag Metzger PA-C PCP - General 08/17/11 04/04/[address] [place] [address] [address] documented as of this encounter
--- OUTSIDE RECORDS SUMMARY | 2022-04-03 07:10 | XMS_ITS | Encounter Summary ---
:1970 Author Organization [employer] Address [address] [place] [address] Care Team Providers Name Role Phone Padmini Park PA-C Primary Care Provider Reason for Visit Reason Comments Foot Pain Encounter Details Date Type Department Care Team Description 05/27/2012 Initial Consult [facility] Serge Arechiga , Foot pain (Primary Dx); MedSurg DPM Plantar fasciitis [address] [place] [address] [place], [place] [phone] Social History Tobacco Use Types Packs/Day Years [...] indicates that in February she went to [place] and did quite a bit a walking. [...] of breath. Past Medical History: Reviewed in [facility] Past Surgical History Procedure Date ??? Hysterectomy 2005 supracervical ??? Breast reduction surgery 2005 ??? section 1991 failure to progress, distress ??? 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 ? [place] STRAPPING; ANKLE &/OR FOOT No orders of the defined types were placed in this encounter. documented in this encounter Plan of Treatment Not on filedocumented as of this encounter Visit Diagnoses Diagnosis Foot pain - Primary Pain in limb Plantar fasciitis Plantar fascial fibromatosis documented in this encounter Care Teams Plastic Top Assembler Relationship Specialty Start Date End Date Padmini Park PA-C PCP - General Family Practice 04/05/12 01/19/16 documented as of this encounter
--- OUTSIDE RECORDS SUMMARY | 2022-04-03 07:10 | XMS_ITS | Encounter Summary ---
:1970 Author Organization [employer] Address [address] [place] [address] Care Team Providers Name Role Phone Chirag Mtezger PA-C Primary Care Provider Reason for Visit Reason Onset Date Comments SCIATICA 12/07/2011 Encounter Details Date Type Department Care Team Description 12/07/2011 Telephone [place] [facility] [address] [place], [place] [address] Social History Tobacco Use Types Packs/Day [...] on filedocumented in this encounter Care Teams Car Repairer Helper Relationship Specialty Start Date End Date Chirag Metzger PA-C PCP - General 08/17/11 04/04/[address] [place] [address] [address] documented as of this encounter
--- OUTSIDE RECORDS SUMMARY | 2022-04-03 07:10 | XMS_ITS | Encounter Summary ---
:1970 Author Organization [facility] Address [address] [place] [address] Care Team Providers Name Role Phone Unassigned, Provider Primary Care Provider Unavailable Encounter Details Date Type Department Care Team Description 12/11/2002 PN Conversion Only [address] [address] [place] [address] Social History Tobacco Use Types Packs/Day Years Used Date Smoking Tobacco: Never Assessed Sex Assigned at Date Recorded Not on file documented as of this encounter Plan of Treatment Not on filedocumented as of this encounter Visit Diagnoses Not on filedocumented in this encounter Care Teams Intermodal Customer Service Relationship Specialty Start Date End Date Unassigned, Provider PCP - General 07/01/07 08/16/[address] [place] [address] documented as of this encounter
--- OUTSIDE RECORDS SUMMARY | 2022-04-03 07:10 | XMS_ITS | Encounter Summary ---
:1970 Author Organization [facility] Address [address] [place] [address] Care Team Providers Name Role Phone Unassigned, Provider Primary Care Provider Unavailable Encounter Details Date Type Department Care Team Description 06/17/2003 PN Conversion Only [place] Nae Vazquez, [address] [facility] [place] [address] [address] [place], [place] [address] (Wo rk) Social History Tobacco Use Types Packs/Day Years Used Date Smoking Tobacco: Never Assessed Sex Assigned at Date Recorded Not on file documented as of this encounter Plan of Treatment Not on filedocumented as of this encounter Procedures Procedure Name Priority Date/Time Associated Comments Diagnosis GLUCOSE Routine 06/17/2003 9:20 AM Results f or this TARGET SETTER procedure are i n the results section. THYROID STIMULATING Routine 06/17/2003 9:20 AM Re sults for this HORMONE TARGET SETTER procedure are i n the results section. documented in this encounter Results Thyroid Stimulating Hormone (06/17/2003 9:20 AM TARGET SETTER) P athologist Signature Thyroid 0.78 0.20 - HP CONVERSION Stimulating 5.50 Hormone uIU/mL Specimen (Source) Anatomical Collection Method Collection Time Re ceived Time Location / / Volume Laterality 06/17/2003 9:20 AM TARGET SETTER Nae Hylton PA-C LAB_1 Performing Organization Address City/State/ZIP Code Phon e Number HP CONVERSION Glucose (06/17/2003 9:20 AM TARGET SETTER) P athologist Signature Lab Glucose 84 60 - 109 HP CONVERSION mg/dL Specimen (Source) Anatomical Collection Method Collection Time Re ceived Time Location / / Volume Laterality 06/17/2003 9:20 AM TARGET SETTER Nae Renee Concetta [facility] LAB_1 Performing Organization Address City/[facility] Phon e Number HP CONVERSION documented in this encounter Visit Diagnoses Not on filedocumented in this encounter Care Teams Obstetrical Tech Relationship Specialty Start Date End Date Unassigned, Provider PCP - General 07/01/07 08/16/[address] [place] [address] documented as of this encounter
--- OUTSIDE RECORDS SUMMARY | 2022-04-03 07:10 | XMS_ITS | Encounter Summary ---
:1970 Author Organization [email or web address] Address [address] [place] [address] Care Team Providers Name Role Phone Chirag Metzger PA-C Primary Care Provider Reason for Visit Reason Comments CONJUNCTIVITIS Encounter Details Date Type Department Care Team Description 02/19/2012 Telephone Chirag Chopra PA-C CONJUNCTIVITIS [address] [place] [address] [place] [address] [phone] (Wo rk) Social History Tobacco Use Types Packs/Day Years Used Date Smoking Tobacco: Never Assessed Sex Assigned at Date Recorded Not on file documented as of this encounter Nursing Notes Karen Lyons RN - 02/19/2012 8:13 AM CDT Left message that we do not treat adults over the phone, advised appointment Donna Pemberton - 02/19/2012 7:04 AM CDT [facility], Patient is checking to see if she can be treated over the phone without an appt? [facility] documented in this encounter Plan of Treatment Not on filedocumented as of this encounter Visit Diagnoses Not on filedocumented in this encounter Care Teams Wet Suit Gluer Relationship Specialty Start Date End Date Chirag Metzger PA-C PCP - General 08/17/11 04/04/12 [address] [place], [place] [address] documented as of this encounter
--- OUTSIDE RECORDS SUMMARY | 2022-04-03 07:10 | XMS_ITS | Encounter Summary ---
:1970 Author Organization [facility] Address [address] [place] [address] Care Team Providers Name Role Phone Chirag Metzger PA-C Primary Care Provider Encounter Details Date Type Department Care Team Description 10/31/2011 [facility] [place] [facility] MELANY BlancaPRACTANNE PT [address] [facility] Enoc Lazaro DC LIABILITY PAW [place] [...] on filedocumented in this encounter Care Teams Water Meter Reader Relationship Specialty Start Date End Date Chirag Metzger PA-C PCP - General Physician Ore Mixer 07/06/[address] [phone] documented as of this encounter
--- OUTSIDE RECORDS SUMMARY | 2022-04-03 07:10 | XMS_ITS | Encounter Summary ---
:1970 Author Organization [facility] Address [address] [place] [address] Care Team Providers Name Role Phone Chirag [...] acic region, not elsewhere classified; [place] [address] Nonallopathic lesion of cerv ical region, not elsewhere classified; [phone] Spasm of muscle ; Sciatica Social History [...] classified CHIROPRACTIC [place]; SP 3-4 RGNS (48205) 2. Nonallopathic lesion of thoracic region, not elsewhere classified CHIROPRACTIC [place]; SP 3-4 RGNS (99880) 3. Nonallopathic lesion of cervical region, not elsewhere classified [place]RA[place]; SP 3-4 RGNS (76745) 4. Spasm of muscle [place]OPRACTIC [place]; SP 3-4 RGNS (20852) 5. Sciatica CHIROPRACTIC [place]; SP 3-4 RGNS (81868) Plan: Articular adjustments in the cervical, thoracic [...] Sciatica documented in this encounter Care Teams Associate Product Integrity Engineer Relationship Specialty Start Date End Date Chirag Metzger PA-C PCP - General 08/17/11 04/04/12 [address] [place] [address] documented as of this encounter
--- OUTSIDE RECORDS SUMMARY | 2022-04-03 07:10 | XMS_ITS | Encounter Summary ---
:1970 Author Organization [facility] [facility] [facility] Address [address] [place] [address] Care Team Providers Name Role Phone Unassigned, Provider Primary Care Provider Unavailable Encounter Details Date Type Department Care Team Description 10/05/2003 PN Conversion Only [place] [facility] Ronen Interiano, Medicine SLEEP TECH, CLAIM TRAINEE [address] [address] [place] [address] [place] [address] [phone] (Wo rk) Social History Tobacco Use Types [...] 09/06/101416 Note Time: 10/27/03 0001 Status: Signed Bulker: Clinician Phone Note (Resource) - TREATING PROVIDER: DOMINGO PHYLLIS * HOME PHONE:[phone] * SUBJECTIVE: * WORK PHONE:[phone] * ALLERGIES/SENSITIVITIES... NKDA 10/09/03 CURRENT MEDICATIONS... VERAPAMIL 120 MG QD; Imitrex 50 mg po migraines prn as ordered PERTINENT PAST HISTORY... 10/09/03 ASSESSMENT: CT head DISPOSITION: NO DISPOSITION GIVEN PLAN: MIS COMMENTS... per domingo interiano in [facility] to CT of head with/without contrast. please call, normal._unable to reach pt at this # disconnected CALL BY THOR SCOTT LPN 10/27/2003 02:19PM [phone] ADDENDUM: Phone Note, Clinician - 10/13/2003 12:01 AM CDT Phone Note signed by Domingo Interiano APRN, CNP at 10/23/03 1864 Author: Clinician Phone Note Service: (none) Author Type: Resource Filed: 10/05/03 0000 Note Time: 10/13/03 0001 Status: Signed Bulker: Clinician Phone Note (Resource) - TREATING PROVIDER: DOMINGO PHYLLIS * HOME PHONE:[phone] * SUBJECTIVE: * WORK PHONE:[phone] * ALLERGIES/SENSITIVITIES... NKDA 10/09/03 CURRENT MEDICATIONS... VERAPAMIL 120 MG QD; Imitrex 50 mg po migraines prn as ordered PERTINENT PAST HISTORY... 10/09/03 ASSESSMENT: ct results DISPOSITION: NO DISPOSITION GIVEN PLAN: MIS COMMENTS... pt stopped in clinic today asking for CT results, done this am. per mena interiano-CT is normal, continue verapamil, may take 2-4weeks to be effective,if not improved, f/u with provider-in [place].pt notified and understands. CALL BY THOR SCOTT LPN 10/13/2003 12:01PM [phone] ADDENDUM: Phone Note, Clinician - 10/12/2003 12:01 AM CDT Phone Note filed by Clinician Phone Note at 09/06/10 5976 Author: Clinician Phone Note Service: (none) Author Type: Resource Filed: 09/06/10 141 Note Time: 10/12/03 0001 Status: Signed Bulker: Clinician Phone Note (Resource) TO: DOMINGO INTERIANO FROM: ADAM LONG [phone] 10/12/03 * PROVIDER MESSAGE: ROUTINE * 10:05AM * *WITHIN 4 HOURS * MESSAGE: Pt calling because she would * HOME PHONE:[phone] * like you to order MRI that you and * WORK PHONE:[phone] * pt hav e been discussing. She has * CONTACT PHONE:[phone] * been off meds since 10/08/03 so would like i t done soon. Please Advise! SUBJECTIVE: ALLERGIES/SENSITIVITIES... NKDA 10/09/03 CURRENT MEDICATIONS... VERAPAMIL 120 MG QD; Imitrex 50 mg po migraines prn as ordered PERTINENT PAST HISTORY... 10/09/03 WEIGHT: ASSESSMENT: Pt calling PLAN: DISPOSITION: NO DISPOSITION GIVEN CALL BY ADAM LONG 10/12/2003 10:03AM [phone] ADDENDUM: <> 10/12/2003 11:05AM by THOR SCOTT LPN: per domingo interiano written orders 1) ok for CT as discussed. a Ct scan was scheduled 10/13/03 10:00AM pt notified,report to radiology 9:4 0 no prep needed prior to scan ING SUPERVISOR Phone Note, Clinician - 10/09/2003 12:01 AM CDT Phone Note filed by Clinician Phone Note at 09/06/10 1409 Author: Clinician Phone Note Service: (none) Author Type: Resource Filed: 09/06/10 1409 Note Time: 10/09/03 0001 Status: Signed Bulker: Clinician Phone Note (Resource) TO: DOMINGO INTERIANO FROM: LEONOR KELLEY LPN [phone] * PROVIDER MESSAGE: ROUTINE * 10/09/03 08:15AM * *WITHIN 4 HOURS * MESSAGE: On 10/06/03 pt started * HOME PHONE:[phone] * verapamil 120 mg qd, qd since at * CONTACT PHONE:[phone] * 3-3:30 pm top o f head feels hot * work # after 9 am; before * and pressure feeling, yesterday she * 9 am cell [phone] * noted pressure be hind eyes and * PHARMACY: [phone] * face became hot...then she took * [...] CALL BY LEONOR KELLEY LPN 10/09/2003 08:04AM [phone] ADDENDUM: <> 10/09/2003 11:02AM by THOR SCOTT LPN: per daria interiano written orders 1) dc verapimil. 2) midrin as neede d for VIRK. 3) if not improved, return for further testing. called and left mess on [facility] d/t no answer at contact #.to call [phone]# for [place] relayed info. <> 10/09/2003 11:35AM by THOR [...] from coming on. Please advise. Pharm # [phone] and she can be reached at wk until 5:30pm at [phone] or cell phone <> 10/09/2003 04:41PM by THOR SCOTT LPN: per domingo interiano written orders 1) pt called, will cont verapamil 1 20mg everyday. 2) imitrex or midrin only as needed. 3) offered CT of head or sinus, pt declined, moving to [place] in i week. Domingo Interiano APRN, CNP - 10/05/2003 12:01 AM CDT Progress Notes signed by Domingo Interiano APRN, CNP at 10/06/03 1513 Author: MILTON Johnson Service: (none) Author Type: Nurse Practitioner Filed: 09/08/10 2222 Note Time: 10/05/03 0001 Status: Signed Bulker: MILTON Johnson (Nurse Practitioner) NAME: KEARA ROB MR: [id number] ACCT: [id number] VISIT: [id number] DICTATING CLINICIAN: DOMINGO INTERIANO NP JOB: [id number] CLINIC PROGRESS NOTE DATE OF VISIT: 10/05/2003 [...] shrug is strong and equal. Bilateral hand metal and plastic heater strong and equal. HEART: With regular rate and rhythm. No murmur. LUNGS: Clear. Respirations unlabored. CWS:[id number] C: 10/06/03 11:33 DOCUMENT: [id number] Phone Note, Clinician - 07/23/2003 12:01 AM CST Phone Note filed by Clinician Phone Note at 09/06/10 1329 Author: Clinician Phone Note Service: (none) Author Type: Resource Filed: 09/06/10 1329 Note Time: 07/23/03 0001 Status: Signed Bulker: Clinician Phone Note (Resource) SUBJECTIVE: ALLERGIES/SENSITIVITIES... * HOME PHONE:[phone] * CURRENT MEDICATIONS... PERTINENT PAST HISTORY... ASSESSMENT: depo DISPOSITION: NO DISPOSITION GIVEN PLAN: [facility] COMMENTS... Pt calling and had her Depo on 06-17-03 and she is wondering when her n ext shot is due. Per Depo protocol she is due September 02. Dates giv en to pt and she verbalizes understanding. CALL BY DANIELLE BACA RN 07/23/2003 08:41AM [phone] ADDENDUM: LOT Nae Hylton PA-C - 06/17/2003 12:01 AM CST Progress Notes signed by Nae Hylton PA-C at 02/15/04 1034 Author: Nae Pickens PA-C Service: (none) Author Type: Physician Operative Supervisor Filed: 09/08/10 1824 Note Time: 06/17/03 0001 Status: Signed Bulker: Nae Pickens PA-C (Physician Operative Supervisor) NAME: KEARA ROB MR: [id number] ACCT: [id number] VISIT: [id number] DICTATING CLINICIAN: LIZZETH GONZALEZ JOB: [id number] CLINIC PROGRESS NOTE DATE OF VISIT: 06/17/2003 [...] GENERAL: This is a 33-year-old female in [facility] [employer] [facility]. 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 SKIN: Warm and [...] Low back strain. 2) Constipation. TT: CT: [id number] C: 06/17/03 10:03 DOCUMENT: [id number] Nae Hylton PA-C - 03/27/2003 12:01 AM CST Progress Notes signed by Nae Hylton PA-C at 01/27/04 9991 Author: Nae Pickens PA-C Service: (none) Author Type: Physician Operative Supervisor Filed: 09/08/10 3863 Note Time: 03/27/03 0001 Status: Signed Bulker: Nae Pickens PA-C (Physician Operative Supervisor) NAME: KEARA ROB MR: [id number] ACCT: [id number] VISIT: [id number] DICTATING CLINICIAN: LIZZETH GONZALEZ JOB: [id number] CLINIC PROGRESS NOTE DATE OF VISIT: 03/27/2003 [...] appointment yesterday. She had been seen at [facility], was under the care of Dr. [...] Wt: 160 lb. This is a 33-year-old -Stateless female NAD, she is to be HBM. The entire session today was spent in counseling. She was visibly upset that she had to wait as she is again at a new job and feels that being late because of this appointment would jeopardize her employment. ASSESSMENT: Depo-Provera injection. PLAN: Did speak with her employer, explained the situation, also got a fax from [facility] noting that she in fact, had her Depo on 01/12/03 and had a normal Pap done on 01/12/03. She received her Depo-Provera shot today. FINAL IMPRESSION: Depo-Provera injection. TT: CT: [id number] C: 03/28/03 15:32 DOCUMENT: [id number] documented in this encounter Plan of Treatment [...] CDT : ??Normal CT scan of head. [id number] Dictating EDDIE MATIAS RADIOLOGIST Narrative 10/13/2003 10:33 [...] : Normal CT scan of head. [id number] Dictating EDDIE MATIAS RADIOLOGIST Domingo Interiano SLEEP TECH, CLAIM TRAINEE RAD CT documented in this encounter Visit Diagnoses Not on filedocumented in this encounter Care Teams Piano Regulator Inspector Relationship Specialty Start Date End Date Unassigned, Provider PCP - General 07/01/07 08/16/[address] [place] [address] documented as of this encounter
--- OUTSIDE RECORDS SUMMARY | 2022-04-03 07:10 | XMS_ITS | Encounter Summary ---
:1970 Author Organization [facility] Address [address] [place] [address] Care Team Providers Name Role Phone Chirag Metzger PA-C Primary Care Provider Reason for Visit Reason Comments Back Pain Encounter Details Date Type Department Care Team Description 12/11/2011 Hospital Encounter [facility] Milo Patel radiculopathy Care [place] [address] [place] [address] [facility] [address], [place] [id number] Social History Tobacco Use Types Packs/Day Years Used Date Smoking Tobacco: Never Assessed Sex Assigned at Date Recorded Not on file documented as of this encounter Last Filed Vital Signs Vital Sign Reading Time Taken Comments Blood Pressure 129/81 12/11/2011 6:35 PM CDT Pulse 57 12/11/2011 6:35 PM CDT Temperature 36.7 ??C (98.1 ??F) 12/11/2011 6:35 PM CDT Respiratory Rate 18 12/11/2011 6:35 PM CDT Oxygen Saturation - - Inhaled Oxygen Concentration - - Weight - - Height - - Body Mass Index - - documented in this encounter Medications at Time of Discharge Medication Sig Dispensed Refills Start Date End Date ibuprofen (AKA MOTRIN) Take 1-2 tablets by 200 13 09/1801/05/2013 200 MG mouth 3 times daily tabletIndications: as needed. KALANI FIERRO Roberta Jan 05, 2013 11:33 AM 800mg last night. rizatriptan (AKA MAXALT) Take 1 tablet by 10 tablet 12 08/1612/05/2013 10 MG tabletIndications: mouth as needed for Headache, migraine Migraine. May repeat in 2 hours if needed topiramate (AKA TOPAMAX) Take 1 tablet by 180 tablet 4 08/1606/28/2012 25 MG tabletIndications: mouth 2 times daily. Headache, migraine documented as of this encounter ED Notes Milo Patel PA-C - 12/11/2011 8:06 PM CDT SUBJECTIVE: Keara Cuellar is a 41 y.o.female presenting to urgent care for evaluation of several months of low back pain, now starting to radiate from the left hip down toward the left knee. she does have painful walking and has been walking with a limp . no injury. history of back pain on and off. Has recently moved. she does have pain with lifting her leg . Followup letter had been normal. pain is increased with prolonged sitting or walking . sleep has been interrupted over the last few nights. She normally follows with a chiropractor . 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 No loss of bowel or bladder, no loss of muscle function or tone. Exacerbating factors include: : Sitting and walking . Social History: History Substance Use Topics ??? Smoking status: Never Smoker ??? Smokeless tobacco: Never Used ??? Alcohol Use: 1.8 oz/week 3 Glasses of wine per week Past Medical History: Past Medical History Diagnosis Date ??? Fibroid uterus s/p hysterectomy 2006 ??? Syncope, psychogenic stress reaction ??? Headache, migraine 08/17/2011 Review of systems: Negative except for pertinent positives in the subjective. Adverse Drug Reactions: Review of patient's allergies indicates no known allergies. Medications: cyclobenzaprine, ibuprofen, methylprednisolone, topiramate, and rizatriptan OBJECTIVE: Vital Signs: BP 129/81 Pulse 57 Temp(Src) 36.7 ??C (98.1 ??F) (Oral) Resp 18 General: NAD Skin: Mucous membranes are moist, no lesions. Musculoskeletal: Discomfort in the lower left lumbar region withpalpation. Toe touch about: 80 degrees. Heel and toe walking is normal. Hip ROM is uncomfortable with left hip flexion . DTRs are equal. Sensation is normal. Pain noted along the left L4 dermatome Labs: Labs Reviewed - No data to display ASSESSMENT: 1. Lumbar radiculopathy (724.4F) PLAN: Medications methylPREDNIsolone (MEDROL DOSPACK) 4 mg tablet (not administered) cyclobenzaprine (FLEXERIL) 10 mg tablet (not administered) Tylenol for daytime pain. Stressed the need for rest, with routine activity at home for one to two days until pain is improving. We discussed several exercises, and instruction was given on how to do flexion/mobilization exercises multiple times per day as tolerated. Apply ice 10 minutes t.i.d. May also use heat or topical pain medicines. Gradually advance activities as tolerated over the next 7 to 10 days. RTC p.r.n. if not gradually improving. The patient was discharged ambulatory and in stable condition. documented in this encounter Miscellaneous Notes Medication History - Benedict Amaya MD - 12/11/2011 8:06 PM CDT INPATIENT MEDS Encounter Date: 12/11/11 methylPREDNIsolone (MEDROL DOSPACK) 4 mg tablet Start Date:12/11/11, End Date:12/18/11, Frequency:- *No Administrations Recorded cyclobenzaprine (FLEXERIL) 10 mg tablet Start Date:12/11/11, End Date:11/12/12, Frequency:AT BEDTIME PRN *No Administrations Recorded documented in this encounter Plan of Treatment Not on filedocumented as of this encounter Visit Diagnoses Diagnosis Lumbar radiculopathy Thoracic or lumbosacral neuritis or radi culitis, unspecified Triage Assessment Note - Simona Landeros RN - 12/11/2011 6:33 PM CDT Low back pain, was seen by chiropractor and diagnosed sciatica on left side, x 3 months overall, worsening over time, throbbing down left leg and painful to walk, was given exercises by chiro that are painful and difficult but with some/minimal improvement documented in this encounter Care Teams Oceanographer Assistant Relationship Specialty Start Date End Date Chirag Metzger PA-C PCP - General 08/17/11 04/04/12 [address] [place] [address] documented as of this encounter
--- OUTSIDE RECORDS SUMMARY | 2022-04-03 07:10 | XMS_ITS | Encounter Summary ---
:1970 Author Organization [employer] Address [address] [place] [address] Care Team Providers Name Role Phone Chirag Metzger PA-C Primary Care Provider Reason for Visit Reason Comments URI Encounter Details Date Type Department Care Team Description 10/09/2011 Office Visit [facility] Chirag Metzger, Cough (Primary Dx) [address] [place] [address] [address] [phone] [place] [address] Social History Tobacco Use Types Packs/Day [...] Primary documented in this encounter Care Teams Business Assistant Relationship Specialty Start Date End Date Chirag Metzger PA-C PCP - General 08/17/11 04/04/12 [address] [place], [place] [address] documented as of this encounter
--- OUTSIDE RECORDS SUMMARY | 2022-04-03 07:10 | XMS_ITS | Encounter Summary ---
:1970 Author Organization [employer] Address [address] [place] [address] Care Team Providers Name Role Phone Chirag Metzger PA-C Primary Care Provider Reason for Visit Reason Comments BACK PAIN, LOW x1 month LEG PAIN left Encounter Details Date Type Department Care Team Description 10/31/2011 Office Visit [facility], Nonallopathic lesion of sacr al region, not elsewhere classified (Primary Dx); [address] En[place] Lazaro [place] Sciatica; [place] [address] Spasm of muscle [phone] Social History Tobacco Use Types Packs/Day Years [...] in and around the lumbosacral region.Positive left [place]'s test. Ortho/Neuro-WNL. Subluxation left sacroliliac. Assessment: 1. Nonallopathic lesion of sacral region, not elsewhere classified NEW PT VISIT LEVEL 2 (92405)20 MIN, CHIROPRACTIC [place]; SP 1-2 RGNS (87782) 2. Sciatica NEW PT VISIT LEVEL 2 (19633)20 MIN, CHIROPRACTIC [place]; SP 1-2 RGNS (35682) 3. Spasm of muscle NEW PT VISIT LEVEL 2 (44234)20 MIN, CHIROPRACTIC [place]; SP 1-2 RGNS (65963) Plan: Articular adjustments in the lumbosacral region [...] muscle documented in this encounter Care Teams Youth Officer Relationship Specialty Start Date End Date Chirag Metzger PA-C PCP - General 08/17/11 04/04/12 [address] [place] [address] documented as of this encounter
--- OUTSIDE RECORDS SUMMARY | 2022-04-03 07:10 | XMS_ITS | Encounter Summary ---
:1970 Author Organization [facility] Address [address] [place] [address] Care Team Providers Name Role Phone Chirag Metzger PA-C Primary Care Provider Encounter Details Date Type Department Care Team Description 03/01/2012 Notes/Orders [facility] Carla Conner [address] [id number] Social History Tobacco Use Types Packs/Day Years [...] on filedocumented in this encounter Care Teams Glass Etcher Helper Relationship Specialty Start Date End Date Chirag Metzger PA-C PCP - General 08/17/11 04/04/[address] [phone] documented as of this encounter
--- OUTSIDE RECORDS SUMMARY | 2022-04-03 07:10 | XMS_ITS | Encounter Summary ---
:1970 Author Organization [facility] Address [address] [place] [address] Care Team Providers Name Role Phone Chirag Metzger PA-C Primary Care Provider Reason for Visit Reason Comments URI Encounter Details Date Type Department Care Team Description 10/05/2011 Telephone Chiarg Chopra PA-C URI [address] [place] [address] [place] [phone] (Wo rk) Social History Tobacco Use Types [...] unable to make a clinic appointment today, director underwriter sales suggested UC as an option for today. Patient states she will go to [facility] for follow up. MARTITA Petty Malinda [...] for assessment. She agreed with this plan. Motor Vehicle Clerk placed call to home number of patient today. No answer. Voicemail left to return call to triage and to be re-evaluated in clinic if s/sx have not improved as previously advised. Malinda RN Taylor Booker - 10/05/2011 9:09 AM CDT Pt saw Chirag Yassine on 09/25 for URI symptoms and states they are not getting better. Pt is wondering ifshe can get another RX called into her pharmacy. documented in this encounter Plan of Treatment Not on filedocumented as of this encounter Visit Diagnoses Not on filedocumented in this encounter Care Teams Jacquard Loom Heddles Tier Relationship Specialty Start Date End Date Chirag Metzger PA-C PCP - General 08/17/11 04/04/12 [address] [place], [place] [address] documented as of this encounter
--- OUTSIDE RECORDS SUMMARY | 2022-04-03 07:10 | XMS_ITS | Encounter Summary ---
:1970 Author Organization [employer] Address [address] [place] [address] Care Team Providers Name Role Phone Chirag Metzger PA-C Primary Care Provider Reason for Visit Reason Comments Medication Questions Encounter Details Date Type Department Care Team Description 02/19/2012 Telephone [facility] Chirag Metzger PA-C Medication Questions [address] [place] [address] [place] [address] [phone] (Wo rk) Social History Tobacco Use Types [...] on filedocumented in this encounter Care Teams Kiln Puller Relationship Specialty Start Date End Date Chirag Metzger PA-C PCP - General 08/17/11 04/04/12 [address] [place] [address] documented as of this encounter
--- OUTSIDE RECORDS SUMMARY | 2022-04-03 07:10 | XMS_ITS | Encounter Summary ---
:1970 Author Organization [employer] Address [address] [place] [address] Care Team Providers Name Role Phone Chirag Metzger PA-C Primary Care Provider Encounter Details Date Type Department Care Team Description 08/22/2011 Imaging [facility] [address] [place] [address] Social History Tobacco Use Types Packs/Day Years Used Date Smoking Tobacco: Never Assessed Sex Assigned at Date Recorded Not on file documented as of this encounter Plan of Treatment Not on filedocumented as of this encounter Visit Diagnoses Not on filedocumented in this encounter Care Teams Telephone Station Repairer Relationship Specialty Start Date End Date Chirag Metzger PA-C PCP - General 08/17/11 04/04/12 [address] [place] [address] documented as of this encounter
--- OUTSIDE RECORDS SUMMARY | 2022-04-03 07:10 | XMS_ITS | Encounter Summary ---
:1970 Author Organization [employer] Address [address] [place] [address] Care Team Providers Name Role Phone Padmini Park PA-C Primary Care Provider Reason for Visit Reason Comments Follow-up, NOS Encounter Details Date Type Department Care Team Description 06/28/2012 Office Visit [facility], Nonallopathic lesion of sacr al region, not elsewhere classified (Primary Dx); [address] Enoc Lazaro [place] Nonallopathic lesion of thor acic region, not elsewhere classified; [place] [phone] Nonallopathic lesion of cerv ical region, not elsewhere classified; [phone] Spasm of muscle ; Sciatica Social History [...] Comments Blood Pressure 111/74 06/28/2012 10:52 AM AIRCRAFT SYSTEMS REPAIRER Pulse 75 06/28/2012 10:52 AM AIRCRAFT SYSTEMS REPAIRER Temperature - - Respiratory Rate - - [...] classified [place]RA[place] [place]; SP 3-4 RGNS (67227) 2. Nonallopathic lesion of thoracic region, not elsewhere classified [place] [place]; SP 3-4 RGNS (33309) 3. Nonallopathic lesion of cervical region, not elsewhere classified [place] [place]; SP 3-4 RGNS (22322) 4. Spasm of muscle [place]; SP 3-4 RGNS (18499) 5. Sciatica [place]; SP 3-4 RGNS (39439) Plan: Articular adjustments in the cervical, thoracic [...] DECREASE PAIN AND REHABILITATE THE THORACIC REGIONS. RAFT SYSTEMS REPAIRER documented in this encounter Plan of Treatment Not on filedocumented as of this encounter Visit Diagnoses Diagnosis Nonallopathic lesion of sacral region, n ot elsewhere classified - Primary Nonallopathic lesion of thoracic region, not elsewhere classified Nonallopathic lesion of cervical region, not elsewhere classified Spasm of muscle Sciatica (HRC) Sciatica documented in this encounter Care Teams Reclamation Worker Relationship Specialty Start Date End Date Padmini Park PA-C PCP - General Family Practice 04/05/12 01/19/16 documented as of this encounter
--- OUTSIDE RECORDS SUMMARY | 2022-04-03 07:10 | XMS_ITS | Encounter Summary ---
:1970 Author Organization [facility] Address [address] [place] [address] Care Team Providers Name Role Phone Chirag Metzger PA-C Primary Care Provider Reason for Visit Reason Comments Pharyngitis Encounter Details Date Type Department Care Team Description 09/20/2011 Office Visit [facility] Silvana Juarez is (Primary Dx); Medicine Acute pharyngitis [address] [place] [address] Social History Tobacco Use Types [...] (SORE THROAT) onset this am, bodyaches Keara Griselda Cuellar is an 41 y.o. female who [...] Beta Strep Followup (09/20/2011 3:02 PM CDT) [facility] CS Disco Method Time Signature Strep Screen No beta [...] Component Value Ref Test Analysis Performed At [facility] CS Disco Range Method Time Signature Rapid Strep Test [...] - 09/20/2011 3:03 PM CDT Performed at [facility], [id number] [place] [address] Silvana Roche PA-C LAB_1 Performing Organization Address City/State/ZIP Code Phon e Number HP CONVERSION documented in this encounter Visit Diagnoses Diagnosis Uvulitis - Primary Cellulitis and abscess of oral soft tiss ues Acute pharyngitis documented in this encounter Care Teams Dividing Machine Operator Relationship Specialty Start Date End Date Chirag Metzger PA-C PCP - General 08/17/11 04/04/12 [address] [place] [address] documented as of this encounter
--- OUTSIDE RECORDS SUMMARY | 2022-04-03 07:10 | XMS_ITS | Encounter Summary ---
:1970 Author Organization [employer] Address [address] [place] [address] Care Team Providers Name Role Phone Padmini [...] acic region, not elsewhere classified; [place] [phone] Nonallopathic lesion of cerv ical region, not elsewhere classified; [phone] Spasm of muscle ; Sciatica Social History [...] Comments Blood Pressure 128/83 04/25/2012 10:02 AM MAIL SORTER Pulse 71 04/25/2012 10:02 AM MAIL SORTER Temperature - - Respiratory Rate - - [...] classified [place]; SP 3-4 RGNS (20755) 2. Nonallopathic lesion of thoracic region, not elsewhere classified [place] [place]; SP 3-4 RGNS (98885) 3. Nonallopathic lesion of cervical region, not elsewhere classified [place]RA[place]; SP 3-4 RGNS (40105) 4. Spasm of muscle [place]; SP 3-4 RGNS (69918) 5. Sciatica [place]; SP 3-4 RGNS (84966) Plan: Articular adjustments in the cervical, thoracic [...] DECREASE PAIN AND REHABILITATE THE THORACIC REGIONS. SORTER documented in this encounter Plan of Treatment Not on filedocumented as of this encounter Visit Diagnoses Diagnosis Nonallopathic lesion of sacral region, n ot elsewhere classified - Primary Nonallopathic lesion of thoracic region, not elsewhere classified Nonallopathic lesion of cervical region, not elsewhere classified Spasm of muscle Sciatica (HRC) Sciatica documented in this encounter Care Teams Benefits Consultant Relationship Specialty Start Date End Date Padmini Park PA-C PCP - General Family Practice 04/05/12 01/19/16 documented as of this encounter
--- OUTSIDE RECORDS SUMMARY | 2022-04-03 07:10 | XMS_ITS | Encounter Summary ---
:1970 Author Organization [employer] Address [address] [place] [address] Care Team Providers Name Role Phone Chirag Metzger PA-C Primary Care Provider Reason for Visit Reason Comments Annual Exam Encounter Details Date Type Department Care Team Description 08/17/2011 Office Visit Chirag Chopra, Annual physical exam (Primar y Dx); [address] PA-C Headache, migraine; [place] [address] [address] Syncope, psychogenic; [phone] [place] [address] Need for vqjhhkvyrd-jxwvwpg-bcvzuzmxn (T dap) vaccine; [phone] Breast cancer s creening; (Work) Cervical cancer [...] documented in this encounter Patient Instructions Patient InstructionsShChirag sen PA-C - 08/17/2011 2:56 PM CDT Thank you for enrolling in [facility]. Please follow the instructions below to securely access your online medical record. [facility] allows you to send messages to your doctor, view your test results, renewyour prescriptions, schedule appointments, and more. How Do I Sign Up? 1. In your Internet browser, go to: [email or web address] 2. Click on the Sign Up Now link in the Sign In box. You will see the New Member Sign Up page. 3. Enter your [facility] Access Code exactly as it appears below. You will not need to use this code after you???ve completed the sign-up process. If you do not sign up before the expiration date, you must request a new code. [facility] Access Code: [email or web address] Expires: 09/16/11 02:56 PM 4. Enter your Social Security Number ([id number]) and Date of (mm/dd/yyyy) as indicated and click Submit. You will be taken to the next sign- up page. 5. Create a [facility] ID. This will be your [facility] login ID and cannot be changed, so think of one that is secure and easy to remember. 6. Create a [facility] password. You can change your password at any time. 7. Enter your Password Reset Question and Answer. This can be used at a later time if you forget your password. 8. Enter your e-mail address. You will receive e-mail notification when new information is availablein [facility]. 9. Click Sign Up. You can now view your medical record. Additional Information If you have questions, you can call [phone] to talk to our [facility] staff. Remember, [facility] is NOT to be used for urgent [...] if needed . Headache, migraine - Chirag Metzger PA-C 08/17/11 03:45 PM Signed Has had migraine headaches for several years, and just before moving back to [place] she was having increased frequency of migraines. [...] her medications, and has since moved to [place]. Her headache frequency has been gradually increasing, [...] rizatriptan, and topiramate. has no known allergies. Hr Administrator History: : LMP: No LMP recorded. 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 [...] hours if needed Syncope, psychogenic Need for ifwwwrginr-flhgewv-bislacbzb (tdap) vaccine - Tdap (Adacel) Breast cancer [...] years, and just before moving back to [place] she was having increased frequency of migraines. [...] her medications, and has since moved to [place]. Her headache frequency has been gradually increasing, [...] from 05/16/2006 (bilateral - [facility], [place]) and o utside films from 12/07/2004 ([place], [place]). Bilateral Breast Findings: There are scattered fibroglandular densi ties (11% - 50% fibroglandular). No significant masses, calcifications or other abnormalities are seen. Procedure Note Fito Kim MD - 01/12/2016Forma tting of this note might be different from the original. Comparison is made to outside films from 05/16/2006 (bilateral - [facility], [place]) and o utside films from 12/07/2004 (bilateral - [facility], [place]). Bilateral Breast Findings: There are scattered [...] CDT Final GYNECOLOGICAL CYTOLOGY REPORT Pathology #: [id number] ?Date Obtained: 08/17/2011 ? Date Received: 08/21/2011 [...] psychogenic (HRC) Other somatoform disorders Need for sdewvloqms-tgkggfa-jgvwypsgn (T dap) vaccine Need for prophylactic vaccination with c ombined aiopuyrmca-foexnzr-rhbaodmoo (DTP) vaccine Cervical cancer screening Screening for malignant neoplasm of the cervix documented in this encounter Care Teams Clerical Stock Inspector Relationship Specialty Start Date End Date Chirag Metzger PA-C PCP - General 08/17/11 04/04/12 [address] [place] [address] documented as of this encounter
--- OUTSIDE RECORDS SUMMARY | 2022-04-03 07:10 | XMS_ITS | Encounter Summary ---
:1970 Author Organization [employer] Address [address] [place] [address] Care Team Providers Name Role Phone Chirag Metzger PA-C Primary Care Provider Reason for Visit Reason Comments EYE DISCHARGE also red, itchy since wkend; pt recently started pheniramine for weight loss Encounter Details Date Type Department Care Team Description 02/20/2012 Office Visit Padmini Pollock, Conjunctivi tis (Primary Practice PAChichi Dx) [address] [place] [address] [place], [place] [phone] [address] Social History Tobacco Use Types Packs/Day Years [...] irritation. Thank you so much for choosing [facility]. It was a pleasure taking care of you today! Important phone numbers: Daytime Clinic information: [phone] Appointment center: [phone] Evenings & Weekends CareLine: [phone] Urgent Care Hotline: [phone] [facility], Emergency Department [address] [place] [address] documented in this encounter Progress Notes Padmini [...] unspecified documented in this encounter Care Teams Route Inspector Relationship Specialty Start Date End Date Chirag Metzger PA-C PCP - General 08/17/11 04/04/12 [address] [place] [address] documented as of this encounter
--- OUTSIDE RECORDS SUMMARY | 2022-04-03 07:10 | XMS_ITS | Encounter Summary ---
:1970 Author Organization [employer] Address [address] [place] [address] Care Team Providers Name Role Phone Chirag Metzger PA-C Primary Care Provider Reason for Visit Reason Comments URI Encounter Details Date Type Department Care Team Description 10/03/2011 Telephone Chirag Chopra PA-C URI [address] [place] [address] [place] [id number] (Wo rk) Social History Tobacco Use Types Packs/Day Years Used Date Smoking Tobacco: Never Assessed Sex Assigned at Date Recorded Not on file documented as of this encounter Nursing Notes Tiffany Hurtado LPN - 10/03/2011 2:29 PM CDT Pt was seen 09/26/11 for URI. Was treated with Zithromax, Prednisone, and cough med. She is still having throat and upper chest congestion. She is using Delsym and the other cough med as needed for sleep. I advised she increase her clear liquids and try to rest as much as she can. If not improving in the next 1-2 days, come back in for assessment. She agreed with this plan. Analilia Bird R - 10/03/2011 2:23 PM CDT Front Line Sx Call Primary Disability Specialist: Chirag Metzger PA-C Reason for call/symptom: Pt Keara Cuellar (Self) [phone] documented in this encounter Plan of Treatment Not on filedocumented as of this encounter Visit Diagnoses Not on filedocumented in this encounter Care Teams Promotions Representative Relationship Specialty Start Date End Date Chirag Metzger PA-C PCP - General 08/17/11 04/04/[address] [place] [address] documented as of this encounter
--- OUTSIDE RECORDS SUMMARY | 2022-04-03 07:10 | XMS_ITS | Encounter Summary ---
:1970 Author Organization [employer] Address [address] [place] [address] Care Team Providers Name Role Phone Padmini Park PA-C Primary Care Provider Reason for Visit Reason Comments Foot Pain Encounter Details Date Type Department Care Team Description 06/11/2012 Office Visit [facility] Arechiga P lantar fasciitis (Primary Dx); MedSurg DPM Achilles bursitis or tendinitis [address] [place] [address] [place], [place] [phone] (Wo rk) Social History Tobacco Use Types [...] or calcaneal nerve branch. No pain with wlwo-of-uzhd compression of the heel. No weakness with [...] tendinitis documented in this encounter Care Teams Health Care Coordinator Relationship Specialty Start Date End Date Padmini Park PA-C PCP - General Family Practice 04/05/12 01/19/16 documented as of this encounter
--- OUTSIDE RECORDS SUMMARY | 2022-04-03 07:10 | XMS_ITS | Encounter Summary ---
:1970 Author Organization [employer] Address [address] [place] [address] Care Team Providers Name Role Phone Padmini Park PA-C Primary Care Provider Reason for Visit Reason Comments Medication Questions Encounter Details Date Type Department Care Team Description 06/28/2012 Telephone Chirag Chopra PA-C Medication Questions [address] [place] [address] [place] [address] [phone] (Wo rk) Social History Tobacco Use Types Packs/Day Years Used Date Smoking Tobacco: Never Smokeless Tobacco: Never Alcohol Use Standard Drinks/Week Comments Yes 0 (1 standard drink = 0.6 oz pure alcoho l) occasional Sex Assigned at Date Recorded Not on file documented as of this encounter Nursing Notes Chirag Metzger PA-C - 06/28/2012 4:52 PM CST Rx faxed as requested TRONICS DEPARTMENT MANAGER Sofie Bryan RN - 06/28/2012 10:52 AM CST Action requested: Medication Request Additional Info: Spoke with pt. Reports she had been taking Topiramate 50mg bid Pt is requesting to change Topiramate to 100mg at night. Pharmacy correct. Keara Cuellar (Self) [phone] (H) TRONICS DEPARTMENT MANAGER Coreen Desai - 06/28/2012 10:12 AM CST Patient presents would like Chirag to change migraine medicine Topiramate 25mg to different strength, would like 100mg instead, pharmacy is [facility] [place], please call patient to advise TRONICS DEPARTMENT MANAGER documented in this encounter Plan of Treatment Not on filedocumented as of this encounter Visit Diagnoses Diagnosis Headache, migraine - Primary Migraine, unspecified, without mention o f intractable migraine without mention of status migrainosus documented in this encounter Care Teams Deputy Director Of Finance Relationship Specialty Start Date End Date Padmini Park PA-C PCP - General Family Practice 04/05/12 01/19/16 documented as of this encounter
--- OUTSIDE RECORDS SUMMARY | 2022-04-03 07:10 | XMS_ITS | Encounter Summary ---
:1970 Author Organization [employer] Address [address] [place] [address] Care Team Providers Name Role Phone Padmini [...] acic region, not elsewhere classified; [place] [phone] Nonallopathic lesion of cerv ical region, not elsewhere classified; [phone] Spasm of muscle ; Sciatica Social History [...] Comments Blood Pressure 121/83 05/24/2012 10:50 AM PROPERTIES SUPERVISOR Pulse 87 05/24/2012 10:50 AM PROPERTIES SUPERVISOR Temperature - - Respiratory Rate 16 05/24/2012 10:50 AM PROPERTIES SUPERVISOR Oxygen Saturation - - Inhaled Oxygen Concentration - - Weight 79.7 kg (175 lb 9.6 oz) 05/24/2012 10:50 AM PROPERTIES SUPERVISOR Height 156.8 cm (5' 1.75) 05/24/2012 10:50 AM PROPERTIES SUPERVISOR Body Mass Index 32.38 05/24/2012 10:50 AM PROPERTIES SUPERVISOR documented in this encounter Progress Notes Enoc Blanca DC - 05/24/2012 10:48 AM CST Patient:Kaera Cuellar Subjective: Keara presents today for: Neck, mid back and left low back pain that radiates into her left leg of insidious onset. 10/28 Objective: Palpatory tenderness, subluxation and muscle spasms in and around the cervical, thoracic and lumbosacral regions. Assessment: 1. Nonallopathic lesion of sacral region, not elsewhere classified CHIROPRACTIC [place]; SP 3-4 RGNS (39959) 2. Nonallopathic lesion of thoracic region, not elsewhere classified CHIROPRACTIC [place]; SP 3-4 RGNS (47967) 3. Nonallopathic lesion of cervical region, not elsewhere classified [place]IROPRA[place]IC [place]; SP 3-4 RGNS (96356) 4. Spasm of muscle CHIROPRACTIC [place]; SP 3-4 RGNS (88434) 5. Sciatica CHIROPRACTIC [place]; SP 3-4 RGNS (84717) Plan: Articular adjustments in the cervical, thoracic [...] DECREASE PAIN AND REHABILITATE THE THORACIC REGIONS. ERTIES SUPERVISOR documented in this encounter Plan of Treatment Not on filedocumented as of this encounter Visit Diagnoses Diagnosis Nonallopathic lesion of sacral region, n ot elsewhere classified - Primary Nonallopathic lesion of thoracic region, not elsewhere classified Nonallopathic lesion of cervical region, not elsewhere classified Spasm of muscle Sciatica (HRC) Sciatica documented in this encounter Care Teams Pipeline Integrity Engineer Relationship Specialty Start Date End Date Padmini Park PA-C PCP - General Family Practice 04/05/12 01/19/16 documented as of this encounter
--- OUTSIDE RECORDS SUMMARY | 2022-04-03 07:10 | XMS_ITS | Encounter Summary ---
:1970 Author Organization [employer] Address [address] [place] [address] Care Team Providers Name Role Phone Chirag Metzger PA-C Primary Care Provider Reason for Visit Reason Comments BACK PAIN, LOW Encounter Details Date Type Department Care Team Description 12/07/2011 Office Visit [facility], Nonallopathic lesion of sacr al region, not elsewhere classified (Primary Dx); [address] En[place] Lazaro [place] Sciatica; [place] [phone] Spasm of muscle [phone] Social History Tobacco Use Types Packs/Day Years Used Date Smoking Tobacco: Never Assessed Sex Assigned at Date Recorded Not on file documented as of this encounter Progress Notes Enoc Blanca DC - 12/07/2011 8:05 AM CDT Patient:Keara Cuellar Subjective: Keara presents today for: left low back pain. Worse while sitting and laying on her left side. Objective: Palpatory tenderness, subluxation and muscle spasms in and around the lumbosacral region.Positive left [place]'s test. Ortho/Neuro-WNL. Subluxation left sacroliliac. Assessment: No [...] muscle documented in this encounter Care Teams Striper Relationship Specialty Start Date End Date Chirag Metzger PA-C PCP - General 08/17/11 04/04/[address] [place] [address] documented as of this encounter
--- OUTSIDE RECORDS SUMMARY | 2022-04-03 07:10 | XMS_ITS | Encounter Summary ---
:1970 Author Organization [employer] Address [address] [place] [address] Care Team Providers Name Role Phone Chirag Metzger PA-C Primary Care Provider Reason for Visit Reason Comments NECK PAIN Encounter Details Date Type Department Care Team Description 03/05/2012 Office Visit [facility], Nonallopathic lesion of sacr al region, not elsewhere classified (Primary Dx); [address] En[place] Nonallopathic lesion of thor acic region, not elsewhere classified; [place] [address] Nonallopathic lesion of cerv ical region, not elsewhere classified; [phone] Spasm of muscle Social History Tobacco Use [...] classified CHIROPRACTIC [place]; SP 3-4 RGNS (08173) 2. Nonallopathic lesion of thoracic region, not elsewhere classified [place]OPRA[place]IC [place]; SP 3-4 RGNS (02161) 3. Nonallopathic lesion of cervical region, not elsewhere classified CHIROPRACTIC [place]; SP 3-4 RGNS (34132) 4. Spasm of muscle CHIROPRACTIC [place]; SP 3-4 RGNS (88828) Plan: Articular adjustments in the cervical, thoracic [...] muscle documented in this encounter Care Teams Director Community Health Nursing Relationship Specialty Start Date End Date Chirag Metzger PA-C PCP - General 08/17/11 04/04/12 [address] [place] [address] documented as of this encounter
--- OUTSIDE RECORDS SUMMARY | 2022-04-03 07:10 | XMS_ITS | Encounter Summary ---
:1970 Author [facility] Address [address] [place] [address] Care Team Providers Name Role Phone Unassigned, Provider Primary Care Provider Unavailable Encounter Details Date Type Department Care Team Description 09/20/2010 PN Conversion Only [place] [facility] Ronen Munoz W, Medicine FINE ARTIST, ASSET PROTECTION DETECTIVE [address] [place] [address] [place] [address] [phone] (Wo rk) Social History Tobacco Use Types Packs/Day Years Used Date Smoking Tobacco: Never Assessed Sex Assigned at Date Recorded Not on file documented as of this encounter Plan of Treatment Not on filedocumented as of this encounter Visit Diagnoses Not on filedocumented in this encounter Care Teams Associate Vice President Relationship Specialty Start Date End Date Unassigned, Provider PCP - General 07/01/07 08/16/[address] [place] [address] documented as of this encounter
--- OUTSIDE RECORDS SUMMARY | 2022-04-03 07:10 | XMS_ITS | Encounter Summary ---
:1970 Author Organization [facility] Address [address] [place] [address] Care Team Providers Name Role Phone Chirag Metzger PA-C Primary Care Provider Reason for Visit Reason Comments ERRONEOUS ENTRY Encounter Details Date Type Department Care Team Description 10/06/2011 Telephone Chirag Chopra PA-C ERRONEOUS ENTRY [address] [place] [address] [place] [address] [phone] (Wo rk) Social History Tobacco Use Types Packs/Day Years Used Date Smoking Tobacco: Never Assessed Sex Assigned at Date Recorded Not on file documented as of this encounter Nursing Notes Malinda Underwood - 10/06/2011 10:37 AM CDT Please see previous encounter. MARTITA Petty documented in this encounter Plan of Treatment Not on filedocumented as of this encounter Visit Diagnoses Not on filedocumented in this encounter Care Teams Machine Long Goods Helper Relationship Specialty Start Date End Date Chirag Metzger PA-C PCP - General 08/17/11 04/04/[address] [place] [address] documented as of this encounter
--- OUTSIDE RECORDS SUMMARY | 2022-04-03 07:10 | XMS_ITS | Encounter Summary ---
:1970 Author Organization [facility] Address [address] [place] [address] Care Team Providers Name Role Phone Unassigned, Provider Primary Care Provider Unavailable Encounter Details Date Type Department Care Team Description 03/27/2003 PN Conversion Only [place] [address] [address] [place] [address] Social History Tobacco Use Types Packs/Day Years Used Date Smoking Tobacco: Never Assessed Sex Assigned at Date Recorded Not on file documented as of this encounter Plan of Treatment Not on filedocumented as of this encounter Visit Diagnoses Not on filedocumented in this encounter Care Teams Cash Shortage Investigator Relationship Specialty Start Date End Date Unassigned, Provider PCP - General 07/01/07 08/16/[address] [place] [address] documented as of this encounter
--- OUTSIDE RECORDS SUMMARY | 2022-04-03 07:10 | XMS_ITS | Encounter Summary ---
:1970 Author Organization [employer] Address [address] [place] [address] Care Team Providers Name Role Phone Chirag Metzger PA-C Primary Care Provider Reason for Visit Reason Comments Patient Calling Back Encounter Details Date Type Department Care Team Description 01/15/2012 Telephone Chirag Chopra PA-C Patient Calling Back [address] [place] [address] [place] [address] [phone] (Wo rk) Social History Tobacco Use Types Packs/Day Years Used Date Smoking Tobacco: Never Assessed Sex Assigned at Date Recorded Not on file documented as of this encounter Nursing Notes Alexandria Davison MA - 01/16/2012 4:12 PM CDT LM note is ready for sweet pickled fruit maker on FP side. Chirag Metzger PA-C - [...] Please advise when available and patient will sweet pickled fruit maker. documented in this encounter Miscellaneous Notes Letter - 01/15/2012 12:00 AM CDT Images from the original note were not included. [facility] [address] [place] [address] January 16, 2012 To Whom it May Concern: Re: ARCELIA Shultz 1970 Ms. Cuellar carries a diagnosis of migraine headaches. One of her triggers is bright light in her eyes,including sunlight in general, sunlight bouncing off snow, etc. For this reason, Ms. Cuellar has tintedwindows in her car to prevent this trigger from occurring while driving. If you have any questions or concerns, please don't hesitate to call, . Sincerely, Chirag Metzger PA-C RIMENTAL MECHANIC documented in this encounter Plan of Treatment Not on filedocumented as of this encounter Visit Diagnoses Not on filedocumented in this encounter Care Teams Map Clerk Relationship Specialty Start Date End Date Chirag Metzger PA-C PCP - General 08/17/11 04/04/[address] [place] [address] documented as of this encounter
--- OUTSIDE RECORDS SUMMARY | 2022-04-03 07:10 | XMS_ITS | Encounter Summary ---
:1970 Author Organization [employer] Address [address] [place] [address] Care Team Providers Name Role Phone Chirag Metzger PA-C Primary Care Provider Reason for Visit Reason Comments Back Pain Encounter Details Date Type Department Care Team Description 12/07/2011 Telephone Chirag Chopra PA-C Back Pain [address] [place] [address] [place] [address] [phone] (Wo rk) Social History Tobacco Use Types [...] on filedocumented in this encounter Care Teams Tour Coordinator Relationship Specialty Start Date End Date Chirag Metzger PA-C PCP - General 08/17/11 04/04/12 [address] [place] [address] documented as of this encounter
--- OUTSIDE RECORDS SUMMARY | 2022-04-03 07:10 | XMS_ITS | Encounter Summary ---
:1970 Author Organization [employer] Address [address] [place] [address] Care Team Providers Name Role Phone Chirag Metzger PA-C Primary Care Provider Reason for Visit Reason Comments BACK PAIN with leg pain Encounter Details Date Type Department Care Team Description 12/12/2011 Office Visit [facility], Nonallopathic lesion of sacr al region, not elsewhere classified (Primary Dx); [address] [facility] En[place] Lazaro DC Sciatica; [place] [address] Spasm of muscle [phone] Social History Tobacco Use Types Packs/Day Years [...] in and around the lumbosacral region.Positive left [place]'s test. Ortho/Neuro-WNL. Subluxation left sacroliliac. Assessment: 1. Nonallopathic lesion of sacral region, not elsewhere classified [facility] [place]; SP 1-2 RGNS (76786) 2. Sciatica [facility] [place] [place]; SP 1-2 RGNS (32360) 3. Spasm of muscle [facility] [place] [place]; SP 1-2 RGNS (57090) Plan: Articular adjustments in the lumbosacral region [...] muscle documented in this encounter Care Teams Multicultural Services Librarian Relationship Specialty Start Date End Date Chirag Metzger PA-C PCP - General 08/17/11 04/04/12 [address] [place], [place] [address] documented as of this encounter
--- OUTSIDE RECORDS SUMMARY | 2022-04-03 07:11 | XMS_ITS | Encounter Summary ---
:1970 Author Organization [email or web address] Address [address] [place] [address] Care Team Providers Name Role Phone Unassigned, Provider Primary Care Provider Unavailable Encounter Details Date Type Department Care Team Description 11/11/2002 PN Conversion Only ALVINJAMIE CONVERSIO Mary Escobar, [address] [facility] [place] [address] [address] [facility] [address] [place] [address] (Wo rk) Social History Tobacco Use Types Packs/Day Years Used Date Smoking Tobacco: Never Assessed Sex Assigned at Date Recorded Not on file documented as of this encounter Plan of Treatment Not on filedocumented as of this encounter Procedures Procedure Name Priority Date/Time Associated Comments Diagnosis URINE CULTURE Routine 11/11/2002 6:42 PM Results for this CDT procedure are i n the results section. URINALYSIS COMPLETE Routine 11/11/2002 6:11 PM Re sults for this HOLD CULTURE CDT procedure are i n the results section. documented in this encounter Results (ABNORMAL) Urine Culture (11/11/2002 6:42 PM CDT) [facility] Method Time Signature Urine Culture SEE TEXT HP CONVERSION (A) Comment: Patient: KEARA ROB Culture, Urine @ ?Collected: ?184 Source: Clean Ca ?Processed: ??[id number] ??184 ? 1V, SENSIS Final Report ------ ?[id number] ??0917 50-100,000 CFU/mL Escherichia coli Susceptibility Testing E COL ??LIAM INTERP: ?S ??AMPICILLIN , AMC (AUGMENTIN), CARBENICILLIN, ?CIPR OFLOXACIN, CEFTRIAXONE, CEPHALOTHIN, GENTAMICIN, ?NITR OFURANTOIN, NORFLOXACIN, TRIMETH-SULFA @ = URINE CULTURE Performed at ??[address], [place], [place] ?[address] Specimen (Source) Anatomical Collection Method Collection Time Re ceived Time Location / / Volume Laterality 11/11/2002 6:42 PM CDT Thony Escobar MD LAB_1 Performing Organization Address City/State/ZIP Code Phon e Number HP CONVERSION (ABNORMAL) Urinalysis Complete Hold Culture (11/11/2002 6:11 PM CDT) [facility] gist Method Time Signature U Specific 1.010 1.005 - 25 HP CONVERSION [place] pH Urine 7.5 4.5 - 7.5 HP CONVERSION Protein Urine Negative Neg-Trac HP CONVERSION Glucose, Negative Neg-Trac HP CONVERSION Qualitative U Ketones Negative Negative HP CONVERSION U BILI Negative Negative HP CONVERSION Blood Urine Negative Negative HP CONVERSION Nitrite Urine Negative Negative HP CONVERSION Leukocyte Trace (A) Negative HP CONVERSION Esterase Urine Urobilinogen Negative 0.2 - 1.0 HP CONVERSION Urine White Blood 10-24/HP 0 - 3 HP CONVERSION Cells Urine (A) Comment: FEW WBC CLUMPS SEEN. Red Blood Cells Urine 0-2/HPF 0 - 2 HP CONVE RSION Epithelial Cells Few Few /HPF HP CONVERSION Bacteria Urine Few (A) None HP CONVERSION Urine Mucus Few None HP CONVERSION Specimen (Source) Anatomical Collection Method Collection Time Re ceived Time Location / / Volume Laterality 11/11/2002 6:11 PM CDT Thony Escobar MD LAB_1 Performing Organization Address City/State/[facility] Code Phon e Number HP CONVERSION documented in this encounter Visit Diagnoses Not on filedocumented in this encounter Care Teams Bakelite Molder Relationship Specialty Start Date End Date Unassigned, Provider PCP - General 07/01/07 08/16/[address] [place] [address] documented as of this encounter
--- OUTSIDE RECORDS SUMMARY | 2022-04-03 07:11 | XMS_ITS | Encounter Summary ---
:1970 Author Organization [facility] Address [address] [place] [address] Care Team Providers Name Role Phone Oh Gray MD Primary Care Provider Encounter Details Date Type Department Care Team Description 04/23/2001 Office Visit [facility] Fito Agudelo, OD ASTIGMATISM NOS; [address] [facility] [place], [place] [address] [facility] [phone] [address] [place] [address] (Wo rk) Social History Tobacco Use Types Packs/Day Years Used Date Smoking Tobacco: Never Assessed Sex Assigned at Date Recorded Not on file documented as of this encounter Plan of Treatment Not on filedocumented as of this encounter Visit Diagnoses Diagnosis Astigmatism, unspecified Examination of eyes and vision documented in this encounter Care Teams Chemistry Technician Relationship Specialty Start Date End Date Oh Gray MD PCP - General 04/05/00 06/30/07 [facility] [address] [place] [address] documented as of this encounter
--- OUTSIDE RECORDS SUMMARY | 2022-04-03 07:11 | XMS_ITS | Encounter Summary ---
:1970 Author Organization [employer] Address [address] [place] [address] Care Team Providers Name Role Phone Oh Gray MD Primary Care Provider Reason for Visit Reason Comments HEADACHE VIA INTERFACE Encounter Details Date Type Department Care Team Description 07/30/[address] [facility] Oh Gray, TENSION HEADACHE Practice [address] [place], [place] [address] [facility] [phone] [place], [place] [phone] (Wo rk) Social History Tobacco Use Types [...] will have photophobia. She works in a [employer] center for the last year. She wears [...] on Xenedrin for weight control. It an [id number] diet pill that she has taken for [...] a few weeks. IN SUMMARY: HEADACHES cc: OM SEAMSTRESS documented in this encounter Plan of Treatment Not on filedocumented as of this encounter Visit Diagnoses Diagnosis Tension headache documented in this encounter Care Teams Manager Facility Relationship Specialty Start Date End Date hO Gray MD PCP - General 04/05/00 06/30/07 [facility] [address] [place] [address] documented as of this encounter
--- OUTSIDE RECORDS SUMMARY | 2022-04-03 07:11 | XMS_ITS | Encounter Summary ---
:1970 Author Organization [facility] Address [address] [place] [address] Care Team Providers Name Role Phone Oh Gray MD Primary Care Provider Reason for Visit Reason Comments ABDOMINAL CRAMPS Medication Request pain med for abdominal cramp ing Encounter Details Date Type Department Care Team Description 2001 Telephone Careline Emma Raines RN ABDOMINAL CRAMPS; [address] [facility] Medication Request [place], [place] [address] BUILDING (pain med for abdominal [phone] cramping) [place] [address] Social History Tobacco Use Types Packs/Day Years [...] today. States frequently gets strong abdominal aircraft detail draftsperson mping and nausea prior to menes and [...] Discussed setting up appointment in future with ARCHITECTURAL RENDERER. Declines appointment in clinic today. no stat [...] on filedocumented in this encounter Care Teams Mica Plate Layer Relationship Specialty Start Date End Date Oh Gray MD PCP - General 04/05/00 06/30/07 [facility] [address] [place] [address] documented as of this encounter
--- OUTSIDE RECORDS SUMMARY | 2022-04-03 07:11 | XMS_ITS | Encounter Summary ---
:1970 Author Organization [employer] Address [address] [place] [address] Care Team Providers Name Role Phone Unassigned, Provider Primary Care Provider Unavailable Encounter Details Date Type Department Care Team Description 11/11/2002 [place] [address] [place] [address] Social History Tobacco Use Types Packs/Day Years [...] 1445 Note Time: 11/11/02 0001 Status: Signed Audio Tape Librarian: Thony Escobar MD (Physician) NAME: KEARA ROB MR: [id number] ACCT: [id number] VISIT: [id number] DICTATING CLINICIAN: OG ESCOBAR MD JOB: [id number] CLINIC PROGRESS NOTE DATE OF VISIT: 11/11/2002 [...] change, please return for reevaluation. TT: CT: [id number] C: 11/12/02 19:55 DOCUMENT: [id number] L PARTS ASSEMBLER documented in this encounter Plan of Treatment Not on filedocumented as of this encounter Visit Diagnoses Not on filedocumented in this encounter Care Teams Manager Of Corporate Communications Relationship Specialty Start Date End Date Unassigned, Provider PCP - General 07/01/07 08/16/[address] [place] [address] documented as of this encounter
--- OUTSIDE RECORDS SUMMARY | 2022-04-03 07:11 | XMS_ITS | Encounter Summary ---
:1970 Author Organization [facility] Address [address] [place] [address] Care Team Providers Name Role Phone Unassigned, Provider Primary Care Provider Unavailable Encounter Details Date Type Department Care Team Description 11/17/2002 PN Conversion Only [place] [address] [address] [place] [address] Social History Tobacco Use Types Packs/Day Years Used Date Smoking Tobacco: Never Assessed Sex Assigned at Date Recorded Not on file documented as of this encounter Plan of Treatment Not on filedocumented as of this encounter Visit Diagnoses Not on filedocumented in this encounter Care Teams Windows Application Developer Relationship Specialty Start Date End Date Unassigned, Provider PCP - General 07/01/07 08/16/[address] [place] [address] documented as of this encounter
--- OUTSIDE RECORDS SUMMARY | 2022-04-03 07:11 | XMS_ITS | Encounter Summary ---
:1970 Author Organization [facility] Address [address] [place] [address] Care Team Providers Name Role Phone Keya Gay MD Primary Care Provider Reason for Visit Reason Comments ABDOMINAL PAIN epigastric area RASH to neck for 3 days and she i s applying miconazole nitrate 2%,not helping Encounter Details Date Type Department Care Team Description 02/14/2000 Telephone Careline Andrew Ny, ABDOMINAL PAIN [address] RN (epigastric area); RASH [place], [place] [address] (to neck for 3 days and [phone] [place], [place] [address] miconazole nitrate [phone] 2%,not helping) (Work) Social History Tobacco Use Types Packs/Day Years Used Date Smoking Tobacco: Never Assessed Sex Assigned at Date Recorded Not on file documented as of this encounter Nursing Notes 02/14/2000 11:59 PM CDT >> ANDREW Truong Feb 14, 2000 7:25 AM >> CALL RECEIVED. Contact: pt at [phone] TRIAGE REFERENCE:ADULT ABDOMINAL PAIN CNG 2000: STAT [...] am), UTI sx (no ), flankpain (no), PROCESS CONTROL SUPERVISOR sx (had tubes tied), diaphoresis (no), trauma [...] on filedocumented in this encounter Care Teams Vasc Tech Relationship Specialty Start Date End Date Keya Gay MD PCP - General 04/01/1998 04/04/[address] [place] [place] [address] documented as of this encounter
--- OUTSIDE RECORDS SUMMARY | 2022-04-03 07:11 | XMS_ITS | Encounter Summary ---
:1970 Author Organization [facility] Address [address] [place] [address] Care Team Providers Name Role Phone Oh Gray MD Primary Care Provider Encounter Details Date Type Department Care Team Description 12/19/2000 Orders Only Unknown, Physici an [address] [place], [place] [address] (Wo rk) Social History Tobacco Use Types Packs/Day Years Used Date Smoking Tobacco: Never Assessed Sex Assigned at Date Recorded Not on file documented as of this encounter Plan of Treatment Not on filedocumented as of this encounter Procedures Procedure Name Priority Date/Time Associated Diagnosis Comme nts COURT WORKER CYTOLOGY Routine 12/19/2000 2:00 PM Results f or this CDT procedure are i n the results section . documented in this encounter Results COURT WORKER CYTOLOGY (12/19/2000 2:00 PM CDT) [facility] Method Time Signature Airport Location Manager Cytology Airport Location Manager Cytology Report [facility] Patient Name: KEARA ROB Taken: 12/19/00 Received: 12/21/00 Reported: 01/02/01 Physician(s): HELEN BLANCO ([id number]) ? [id number] Final Cytologic Diagnosis Cervical Endocervical,routine: ? Satisfactory [...] Organization Address City/State/ZIP Code Phon e Number [address] [address] [place], [place] [phone] documented in this encounter Visit Diagnoses Not on filedocumented in this encounter Care Teams Tobacco Grader Relationship Specialty Start Date End Date Oh Gray MD PCP - General 04/05/00 06/30/07 [facility] [address] [place] [id number] documented as of this encounter
--- OUTSIDE RECORDS SUMMARY | 2022-04-03 07:11 | XMS_ITS | Encounter Summary ---
:1970 Author Organization [employer] Address [address] [place] [address] Care Team Providers Name Role Phone Oh Gray MD Primary Care Provider Encounter Details Date Type Department Care Team Description 09/24/2000 Office Visit [facility] Oh Gray [place] [address] [place], [place] [address] [facility] [phone] [place] [address] Social History Tobacco Use Types Packs/Day Years Used Date Smoking Tobacco: Never Assessed Sex Assigned at Date Recorded Not on file documented as of this encounter Progress Notes Oh Gray - 09/24/2000 12:00 AM CDTS: 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 This primarily revolves around the fact that she's now the sole parent for her two daughters since her went to senior care about 9 months ago. She's having difficulty deciding how to cope , what course of behavior to pursue, etc. She has spells of sadness where she's not clearly able to identify any problem. She has some difficulty falling asleep, but that's somewhat improved now using the amitriptyline at bedtime. O: Healthy adult female, well developed, well nourished, appropriate in speech and dress with occasional tearfulness. A: Acute situational reaction. P: Continue to use the amitriptyline. Her dose is fairly small now and she's encouraged to increase it if necessary. She's to take it an hour to two before she needs to go to bed and she's referred to [facility] in health psychology for counseling. IN SUMMARY: ACUTE SITUATIONAL STRESS. cc: documented in this encounter Plan of Treatment Not on filedocumented as of this encounter Visit Diagnoses Diagnosis Anxiety state, unspecified ([facility]) Anxiety state, unspecified documented in this encounter Care Teams Eight Section Blower Relationship Specialty Start Date End Date Oh Gray MD PCP - General 04/05/00 06/30/07 [facility] [address] [place] [address] documented as of this encounter
--- OUTSIDE RECORDS SUMMARY | 2022-04-03 07:11 | XMS_ITS | Encounter Summary ---
:1970 Author Organization [employer] Address [address] [place] [address] Care Team Providers Name Role Phone Oh Gray MD Primary Care Provider Reason for Visit Reason Comments CONSULT VIA INTERFACE Encounter Details Date Type Department Care Team Description 04/26/2000 Office Visit [facility] Joey Allen MD MAS TODYNIA Social History Tobacco Use Types Packs/Day Years [...] breast pain and tenderness. cc: THANIA Rand BOX OPERATOR documented in this encounter Plan of Treatment Not on filedocumented as of this encounter Visit Diagnoses Diagnosis Mastodynia documented in this encounter Care Teams Cytology Teacher Relationship Specialty Start Date End Date Oh Gray MD PCP - General 04/05/00 06/30/07 [facility] [address] [place] [address] documented as of this encounter
--- OUTSIDE RECORDS SUMMARY | 2022-04-03 07:11 | XMS_ITS | Encounter Summary ---
:1970 Author Organization [employer] Address [address] [place] [address] Care Team Providers Name Role Phone Keya Gay MD Primary Care Provider Reason for Visit Reason Comments DIARRHEA VIA INTERFACE Encounter Details Date Type Department Care Team Description 02/14/2000 Office Visit [facility] Naheed Tyler, V IRAL ENTERITIS NOS Practice [address] [place], [place] [address] CLINIC [id number] [place] [address] Social History Tobacco Use Types Packs/Day Years [...] She has been through [facility] and states she has been exercising on [...] classified documented in this encounter Care Teams Power Hammer Operator Relationship Specialty Start Date End Date Keya Gay MD PCP - General 04/01/1998 04/04/[address] [place] [address] documented as of this encounter
--- OUTSIDE RECORDS SUMMARY | 2022-04-03 07:11 | XMS_ITS | Encounter Summary ---
:1970 Author Organization [facility] [facility] Address [address] [place] [address] Care Team Providers Name Role Phone Oh Gray MD Primary Care Provider Encounter Details Date Type Department Care Team Description 04/10/2000 Office Visit [facility] Hoang FOR INFLUENZA Practice [address] [facility] [address] [facility] [address] [address] [place], [place] [address] (Wo rk) Social History Tobacco Use Types Packs/Day Years Used Date Smoking Tobacco: Never Assessed Sex Assigned at Date Recorded Not on file documented as of this encounter Plan of Treatment Not on filedocumented as of this encounter Visit Diagnoses Diagnosis VACCINE FOR INFLUENZA documented in this encounter Care Teams Director Of Philanthropy Relationship Specialty Start Date End Date Oh Gray MD PCP - General 04/05/00 06/30/[address] [address] documented as of this encounter
--- OUTSIDE RECORDS SUMMARY | 2022-04-03 07:11 | XMS_ITS | Encounter Summary ---
:1970 Author Organization [employer] Address [address] [place] [address] Care Team Providers Name Role Phone Oh Gray MD Primary Care Provider Encounter Details Date Type Department Care Team Description 02/13/2001 Orders Only Epic, [place] [address] Social History Tobacco Use Types Packs/Day Years Used Date Smoking Tobacco: Never Assessed Sex Assigned at Date Recorded Not on file documented as of this encounter Plan of Treatment Not on filedocumented as of this encounter Visit Diagnoses Not on filedocumented in this encounter Care Teams Critical Care Rn Relationship Specialty Start Date End Date Oh Gray MD PCP - General 04/05/00 06/30/07 [facility] [address] [place] [address] documented as of this encounter
--- OUTSIDE RECORDS SUMMARY | 2022-04-03 07:11 | XMS_ITS | Encounter Summary ---
:1970 Author Organization [employer] Address [address] [place] [address] Care Team Providers Name Role Phone Oh Gray MD Primary Care Provider Encounter Details Date Type Department Care Team Description 12/19/2000 Office Visit [place] Lb Mckeon, GYNECOLOGIC EX AMINATION; Obstetrics and SUPERVISOR FELTING, LUTE PACKER OR APPLIER DYSMENORRHEA; Gynecology CONTRACEPT PILL SURVEILL; [address] [facility] SCREENING MAL NEOP-CERVIX [place], [place] [address] Social History Tobacco Use [...] failure to progress. She had worked in [employer], is currently unemployed. Family history: Cancer: Dad [...] cervix documented in this encounter Care Teams Sanitation Technician Relationship Specialty Start Date End Date Oh Gray MD PCP - General 04/05/00 06/30/[address] [address] documented as of this encounter
--- OUTSIDE RECORDS SUMMARY | 2022-04-03 07:11 | XMS_ITS | Encounter Summary ---
:1970 Author Organization [employer] Address [address] [place] [address] Care Team Providers Name Role Phone Oh Gray MD Primary Care Provider Reason for Visit Reason Comments PAIN, NOS VIA INTERFACE Encounter Details Date Type Department Care Team Description 04/19/2000 Office Visit [facility] Deena Fry L UMP OR MASS IN Practice STORAGE WHARFAGE CLERK, BUSINESS SERVICES OFFICER BREAST [address] [facility] [address] [place] [address] [phone] (Wo rk) Social History Tobacco Use Types Packs/Day Years Used Date Smoking Tobacco: Never Assessed Sex Assigned at Date Recorded Not on file documented as of this encounter Progress Notes Deena Fry - 04/19/2000 12:00 AM CSTS: [age] [id number]-aoa female presents to clinic concerned about breast [...] other providers. I have referred her to [facility], along with giving her written information on weight management and she has not followed up with [facility]. She did state that she was interested in either Meridia or Xenical until she found out she needed to pay for these herself and this is not a possibility. She admits to quite a bit of snacking, no regular exercise. I did contact [facility] and gave them her phone number and history, and they will contact her. The patient understands and agrees with this plan. cc: STANT LABORATORY DIRECTOR documented in this encounter Plan of Treatment Not on filedocumented as of this encounter Visit Diagnoses Diagnosis Lump or mass in breast documented in this encounter Care Teams Logistics Service Representative Relationship Specialty Start Date End Date Oh Gray MD PCP - General 04/05/00 06/30/07 [facility] [id number] [place] [address] documented as of this encounter
--- OUTSIDE RECORDS SUMMARY | 2022-04-03 07:11 | XMS_ITS | Encounter Summary ---
:1970 Author Organization [facility] Address [address] [place] [address] Care Team Providers Name Role Phone Padmini Park PA-C Primary Care Provider Encounter Details Date Type Department Care Team Description 12/19/2000 Orders Only Lb Jain, DEBT COLLECTOR, [address] [place], [place] [phone] Social History Tobacco Use [...] PAP SMEAR, ROUTINE (12/19/2000 2:00 PM CDT) [facility] Method Time Signature Pap Smear, See Separate Report [facility] Routine Performed at [facility] Specimen Anatomical Collection Method Collection Time Receive d Time (Source) Location / / Volume Laterality 12/19/2000 2:00 PM 1 CDT 10:03 AM CDT Lb Mckeon DEBT COLLECTOR, [place] LAB_1 Performing Organization Address City/State/ZIP Code Phon e Number [facility] [phone] [place] [address] [phone] documented in this encounter Visit Diagnoses Not on filedocumented in this encounter Care Teams Helper Animal Laboratory Relationship Specialty Start Date End Date Padmini Park PA-C PCP - General Family Practice 04/05/12 01/19/16 documented as of this encounter
--- OUTSIDE RECORDS SUMMARY | 2022-04-03 07:11 | XMS_ITS | Encounter Summary ---
:1970 Author Organization [employer] Address [address] [place] [address] Care Team Providers Name Role Phone Oh Gray MD Primary Care Provider Encounter Details Date Type Department Care Team Description 10/25/2000 Office Visit Urgent [facility] P HARYNGITIS(SORE THROAT); [place] LABORATORY EXAMINATION [address] [place], [place] [address] Social History Tobacco Use Types Packs/Day Years Used Date Smoking Tobacco: Never Assessed Sex Assigned at Date Recorded Not on file documented as of this encounter Progress Notes AdHarry - 10/25/2000 12:00 AM CDTSUBJECTIVE: Patient is [...] examination documented in this encounter Care Teams Machinist Instructor Relationship Specialty Start Date End Date Oh Gray MD PCP - General 04/05/00 06/30/07 [facility] [address] [place] [address] documented as of this encounter
--- OUTSIDE RECORDS SUMMARY | 2022-04-03 07:11 | XMS_ITS | Encounter Summary ---
:1970 Author Organization [facility] Address [address] [place] [address] Care Team Providers Name Role Phone Padmini Park PA-C Primary Care Provider Encounter Details Date Type Department Care Team Description 10/25/2000 Orders Only [facility] Epic, Internal [address] [place], [place] [phone] [facility] [phone] [place] [address] Social History Tobacco Use Types Packs/Day Years [...] STREP SCREEN (WAITI (10/25/2000 6:48 PM CDT) [facility] gist Method Time Signature Patient Home [id number] [facility] Phone # Patient Work None [facility] Phone # Grp A Rapid Negative [facility] Screen Grp A Culture Negative [facility] Final Specimen Anatomical Collection Method Collection Time Receive d Time (Source) Location / / Volume Laterality 10/25/2000 6:48 PM 1 6:49 CDT PM CDT Narrative [facility] - 10/25/2000 6:48 PM CDT Ordered by [facility] Internal Processing Epic LAB_1 Performing Organization Address City/State/ZIP Code Phon e Number [facility] [phone] [phone] documented in this encounter Visit Diagnoses Not on filedocumented in this encounter Care Teams Armature Bander Relationship Specialty Start Date End Date Padmini Park PA-C PCP - General Family Practice 04/05/12 01/19/16 documented as of this encounter
--- OUTSIDE RECORDS SUMMARY | 2022-04-03 07:11 | XMS_ITS | Encounter Summary ---
:1970 Author Organization [employer] Address [address] [place] [address] Care Team Providers Name Role Phone Oh Gray MD Primary Care Provider Encounter Details Date Type Department Care Team Description 12/19/2000 Orders Only Epic, [place] [address] Social History Tobacco Use Types Packs/Day Years Used Date Smoking Tobacco: Never Assessed Sex Assigned at Date Recorded Not on file documented as of this encounter Plan of Treatment Not on filedocumented as of this encounter Visit Diagnoses Not on filedocumented in this encounter Care Teams Licensing Court Magistrate Relationship Specialty Start Date End Date Oh Gray MD PCP - General 04/05/00 06/30/07 [facility] [address] [place] [address] documented as of this encounter
--- OUTSIDE RECORDS SUMMARY | 2022-04-03 07:11 | XMS_ITS | Encounter Summary ---
:1970 Author Organization [facility] Address [address] [place] [address] Care Team Providers Name Role Phone Oh Gray MD Primary Care Provider Encounter Details Date Type Department Care Team Description 01/03/2002 Orders Only [facility] Ruy Gray MD Practice [address] [address] [place] [address] [phone] (Wo rk) Social History Tobacco Use Types Packs/Day Years Used Date Smoking Tobacco: Never Assessed Sex Assigned at Date Recorded Not on file documented as of this encounter Plan of Treatment Not on filedocumented as of this encounter Visit Diagnoses Not on filedocumented in this encounter Care Teams Global Program Manager Relationship Specialty Start Date End Date Oh Gray MD PCP - General 04/05/00 06/30/[address] [address] documented as of this encounter
--- OUTSIDE RECORDS SUMMARY | 2022-04-03 07:11 | XMS_ITS | Encounter Summary ---
:1970 Author Organization [employer] Address [address] [place] [address] Care Team Providers Name Role Phone Oh Gray MD Primary Care Provider Encounter Details Date Type Department Care Team Description 01/16/2001 Orders Only Epic, [place] [address] Social History Tobacco Use Types Packs/Day Years Used Date Smoking Tobacco: Never Assessed Sex Assigned at Date Recorded Not on file documented as of this encounter Plan of Treatment Not on filedocumented as of this encounter Visit Diagnoses Not on filedocumented in this encounter Care Teams Survey Instrument Operator Relationship Specialty Start Date End Date Oh Gray MD PCP - General 04/05/00 06/30/07 [facility] [address] [place] [address] documented as of this encounter
--- OUTSIDE RECORDS SUMMARY | 2022-04-03 07:11 | XMS_ITS | Encounter Summary ---
:1970 Author Organization [employer] Address [address] [place] [address] Care Team Providers Name Role Phone Oh Gray MD Primary Care Provider Encounter Details Date Type Department Care Team Description 05/10/2000 Education Unmatched, Results Social History Tobacco Use Types Packs/Day Years Used Date Smoking Tobacco: Never Assessed Sex Assigned at Date Recorded Not on file documented as of this encounter Progress Notes Unmatched, Results - 05/10/2000 12:00 AM CSTPROVIDER - Galo Gillis [facility]; ; S: Referred by clinic to [...] mgt course; Referred to: phone line counselor; [facility]; ; D OBSERVER documented in this encounter Plan of Treatment Not on filedocumented as of this encounter Visit Diagnoses Not on filedocumented in this encounter Care Teams Title Assistant Relationship Specialty Start Date End Date Oh Gray MD PCP - General 04/05/00 06/30/07 [facility] [id number] [place] [address] documented as of this encounter
--- OUTSIDE RECORDS SUMMARY | 2022-04-03 07:11 | XMS_ITS | Encounter Summary ---
:1970 Author Organization [employer] Address [address] [place] [address] Care Team Providers Name Role Phone Oh Gray MD Primary Care Provider Encounter Details Date Type Department Care Team Description 08/17/2000 Orders Only Epic, [place] [address] Social History Tobacco Use Types Packs/Day Years Used Date Smoking Tobacco: Never Assessed Sex Assigned at Date Recorded Not on file documented as of this encounter Plan of Treatment Not on filedocumented as of this encounter Visit Diagnoses Not on filedocumented in this encounter Care Teams Lens Cementer Relationship Specialty Start Date End Date Oh Gray MD PCP - General 04/05/00 06/30/07 [facility] [address] [place] [address] documented as of this encounter
--- OUTSIDE RECORDS SUMMARY | 2022-04-03 07:11 | XMS_ITS | Encounter Summary ---
:1970 Author Organization [employer] Address [address] [place] [address] Care Team Providers Name Role Phone Oh Gray MD Primary Care Provider Encounter Details Date Type Department Care Team Description 11/07/2000 Orders Only Epic, [place] [address] Social History Tobacco Use Types Packs/Day Years Used Date Smoking Tobacco: Never Assessed Sex Assigned at Date Recorded Not on file documented as of this encounter Plan of Treatment Not on filedocumented as of this encounter Visit Diagnoses Not on filedocumented in this encounter Care Teams Internal Grinder Relationship Specialty Start Date End Date Oh Gray MD PCP - General 04/05/00 06/30/07 [facility] [address] [place] [address] documented as of this encounter
--- OUTSIDE RECORDS SUMMARY | 2022-04-03 07:11 | XMS_ITS | Encounter Summary ---
:1970 Author Organization [facility] Address [address] [place] [address] Care Team Providers Name Role Phone Keya Gay MD Primary Care Provider Reason for Visit Reason Comments Dental Concerns Encounter Details Date Type Department Care Team Description 02/04/2000 Telephone Careline Ary Young RN Dental Concerns [address] [place], [place] [address] [place] [address] [phone] Social History Tobacco Use Types Packs/Day Years [...] Feb 04, 2000 2:00 PM >> [facility]: Had 2 wisdom teeth removed [...] on filedocumented in this encounter Care Teams Clinical Lab Scientist Relationship Specialty Start Date End Date Keya Gay MD PCP - General 04/01/1998 04/04/[address] [place] [place] [address] documented as of this encounter
--- OUTSIDE RECORDS SUMMARY | 2022-04-03 07:11 | XMS_ITS | Encounter Summary ---
:1970 Author Organization [facility] Address [address] [place] [address] Care Team Providers Name Role Phone Oh Gray MD Primary Care Provider Encounter Details Date Type Department Care Team Description 07/30/2000 Orders Only [facility] Ruy Gray MD Practice [address] [address] [place] [address] [phone] (Wo rk) Social History Tobacco Use Types Packs/Day Years Used Date Smoking Tobacco: Never Assessed Sex Assigned at Date Recorded Not on file documented as of this encounter Plan of Treatment Not on filedocumented as of this encounter Visit Diagnoses Not on filedocumented in this encounter Care Teams Cream Cheese Maker Relationship Specialty Start Date End Date Oh Gray MD PCP - General 04/05/00 06/30/[address] [address] documented as of this encounter
--- OUTSIDE RECORDS SUMMARY | 2022-04-03 07:11 | XMS_ITS | Encounter Summary ---
:1970 Author Organization [employer] Address [address] [place] [address] Care Team Providers Name Role Phone Keya Gay MD Primary Care Provider Encounter Details Date Type Department Care Team Description 02/04/2000 Orders Only Keya Gay MD [address] [address] (Wo rk) Social History Tobacco Use Types Packs/Day Years Used Date Smoking Tobacco: Never Assessed Sex Assigned at Date Recorded Not on file documented as of this encounter Plan of Treatment Not on filedocumented as of this encounter Visit Diagnoses Not on filedocumented in this encounter Care Teams Med Dir Relationship Specialty Start Date End Date Keya Gay MD PCP - General 04/01/1998 04/04/[address] [place] [address] documented as of this encounter
--- OUTSIDE RECORDS SUMMARY | 2022-04-03 07:11 | XMS_ITS | Encounter Summary ---
:1970 Author Organization [employer] Address [address] [place] [address] Care Team Providers Name Role Phone Oh Gray MD Primary Care Provider Encounter Details Date Type Department Care Team Description 08/17/2000 Office Visit [facility] Deena Fry A NXIETY DISORDER NOS; Practice MELT HOUSE SUPERVISOR, GUARD SERGEANT NONSPECIF SKIN ERUPT [facility] [address] [facility] [address] [place] [address] [phone] (Wo rk) Social History Tobacco Use Types Packs/Day Years Used Date Smoking Tobacco: Never Assessed Sex Assigned at Date Recorded Not on file documented as of this encounter Progress Notes Deena Fry - 08/17/2000 12:00 AM CSTS: [age] ksv-gqkm-yql - Bahamian female presents to clinic with two concerns. She has noticed a raised itchy rash on the left side of her neck and also on the right breast. She also has an area of hyperpigmented skin on her left forearm. Daughter recently had ringworm. She has tried some ncke-eoe-ewqqtbv cortisone cream occasionally to the lesion on [...] that she is continuing to take an lhih-jdo-nwhissw diet pill I believe called Xenedine (sp [...] in the morning. 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 She has lost 9 pounds and is also attending Weight Wat[employer]. She has not been doing any regular exercise. Keara is quite stressed as she took off the last two days of work to move from a place in [place] to an apartment in [place]. She'll be living there with her two young daughters. She completed the move today but still has quite a bit of unpacking to do. She missed two days of work and is worried that her employer will have a hard time with this. She is requesting a note of excuse. Keara also is planning a trip to [facility] tomorrow morning with her sisters. She complains [...] increase sleep while on her trip to [facility]. She is given 0.25 mg [...] lesion on the arm. May use an vcpj-eyh-icqbrad hydrocortisone cream to the lesions underneath the right breast and on the left neck. Follow up if no improvement. IN SUMMARY: STRESS REACTION, RASH cc: LE REINFORCER documented in this encounter Plan of Treatment Not on filedocumented as of this encounter Visit Diagnoses Diagnosis Anxiety state, unspecified ([facility]) Anxiety state, unspecified Rash and other nonspecific skin eruption documented in this encounter Care Teams Superintendent Oil Well Services Relationship Specialty Start Date End Date Oh Gray MD PCP - General 04/05/00 06/30/07 [facility] [address] [place] [address] documented as of this encounter
--- OUTSIDE RECORDS SUMMARY | 2022-04-03 07:11 | XMS_ITS | Encounter Summary ---
:1970 Author Organization [employer] Address [address] [place] [address] Care Team Providers Name Role Phone Keya Gay MD Primary Care Provider Encounter Details Date Type Department Care Team Description 02/03/2000 Orders Only Epic, [place] [address] Social History Tobacco Use Types Packs/Day Years Used Date Smoking Tobacco: Never Assessed Sex Assigned at Date Recorded Not on file documented as of this encounter Plan of Treatment Not on filedocumented as of this encounter Visit Diagnoses Not on filedocumented in this encounter Care Teams Junior Technical Writer Relationship Specialty Start Date End Date Keya Gay MD PCP - General 04/01/1998 04/04/00 [address] [place] [address] documented as of this encounter
--- OUTSIDE RECORDS SUMMARY | 2022-04-03 07:11 | XMS_ITS | Encounter Summary ---
:1970 Author Organization [employer] Address [address] [place] [address] Care Team Providers Name Role Phone Keya Gay MD Primary Care Provider Encounter Details Date Type Department Care Team Description 02/15/2000 Orders Only Epic, [place] [address] Social History Tobacco Use Types Packs/Day Years Used Date Smoking Tobacco: Never Assessed Sex Assigned at Date Recorded Not on file documented as of this encounter Plan of Treatment Not on filedocumented as of this encounter Visit Diagnoses Not on filedocumented in this encounter Care Teams Sub Arc Operator Relationship Specialty Start Date End Date Keya Gay MD PCP - General 04/01/1998 04/04/00 [address] [place] [address] documented as of this encounter
--- OUTSIDE RECORDS SUMMARY | 2022-04-03 07:11 | XMS_ITS | Encounter Summary ---
:1970 Author Organization [facility] Address [address] [place] [address] Care Team Providers Name Role Phone Unassigned, Provider Primary Care Provider Unavailable Encounter Details Date Type Department Care Team Description 11/12/2002 PN Conversion Only [address] [address] [place] [address] Social History Tobacco Use Types Packs/Day Years Used Date Smoking Tobacco: Never Assessed Sex Assigned at Date Recorded Not on file documented as of this encounter Plan of Treatment Not on filedocumented as of this encounter Visit Diagnoses Not on filedocumented in this encounter Care Teams Children'S Choir Director Relationship Specialty Start Date End Date Unassigned, Provider PCP - General 07/01/07 08/16/[address] [place] [address] documented as of this encounter
--- OUTSIDE RECORDS SUMMARY | 2022-04-03 07:11 | XMS_ITS | Encounter Summary ---
:1970 Author Organization [employer] Address [address] [place] [address] Care Team Providers Name Role Phone Oh Gray MD Primary Care Provider Encounter Details Date Type Department Care Team Description 02/13/2001 Office Visit [facility] Deena Fry N ONSPECIF SKIN ERUPT Practice SET UP / OPERATOR, MACHINE FEEDER RAW [facility] [address] [facility] [address] [place] [phone] (Wo rk) Social History Tobacco Use Types [...] several months she believes. She is trying aohl-etq-locrbdn hydrocortisone cream sporadically. She also tried a [...] eruption documented in this encounter Care Teams Concrete Pouring Supervisor Relationship Specialty Start Date End Date Oh Gray MD PCP - General 04/05/00 06/30/[address] [address] documented as of this encounter
--- OUTSIDE RECORDS SUMMARY | 2022-04-03 07:11 | XMS_ITS | Encounter Summary ---
:1970 Author Organization [employer] Address [address] [place] [address] Care Team Providers Name Role Phone Oh Gray MD Primary Care Provider Reason for Visit Reason Comments ARIADNE BENJAMIN MD av adult Encounter Details Date Type Department Care Team Description 10/25/2000 Telephone Careline Tabby Edwards RN SORE THROAT, MD (av [address] AFTER HOURS CARE - adult) [place], [place] [address] CARELINE [phone] [place] [address] Social History Tobacco Use Types Packs/Day Years Used Date Smoking Tobacco: Never Assessed Sex Assigned at Date Recorded Not on file documented as of this encounter Nursing Notes 10/25/2000 11:59 PM CDT >> TABBY EDWARDS [facility] Oct 25, 2000 5:24 PM >> CALL [...] coat throat before appt, PLAN: josé miguel evaviva. documented in this encounter Plan of Treatment Not on filedocumented as of this encounter Visit Diagnoses Not on filedocumented in this encounter Care Teams Unloading Checker Relationship Specialty Start Date End Date Oh Gray MD PCP - General 04/05/00 06/30/07 [facility] [address] [place] [address] documented as of this encounter
--- OUTSIDE RECORDS SUMMARY | 2022-04-03 07:11 | XMS_ITS | Encounter Summary ---
:1970 Author Organization [facility] Address [address] [place] [address] Care Team Providers Name Role Phone Oh Gray MD Primary Care Provider Encounter Details Date Type Department Care Team Description 05/03/2000 Education Unmatched, Results Social History Tobacco Use Types Packs/Day Years Used Date Smoking Tobacco: Never Assessed Sex Assigned at Date Recorded Not on file documented as of this encounter Progress Notes Unmatched, Results - 05/03/2000 12:00 AM CSTPROVIDER - Michelle Mi [facility]; ; Member referred by for weight management phone counseling; attempted to reach member 3 times; will send an unable to reach letter as final attempt to reach member and have them call in to schedule their appt; cc: Martine MONTEIRO [facility] [employer] [facility] [employer]; ; NSIC PHOTOGRAPHER documented in this encounter Plan of Treatment Not on filedocumented as of this encounter Visit Diagnoses Not on filedocumented in this encounter Care Teams Inside Account Executive Relationship Specialty Start Date End Date Oh Gray MD PCP - General 04/05/00 06/30/[address] [address] documented as of this encounter
--- OUTSIDE RECORDS SUMMARY | 2022-04-03 07:11 | XMS_ITS | Encounter Summary ---
:1970 Author Organization [employer] Address [address] [place] [address] Care Team Providers Name Role Phone Keya Gay MD Primary Care Provider Reason for Visit Reason Comments RASH VIA INTERFACE Encounter Details Date Type Department Care Team Description 02/15/2000 Office Visit [facility] Naheed Tyler D ERMATITIS [facility] Practice [address] [place], [place] [address] CLINIC [phone] [place] [address] Social History Tobacco Use Types Packs/Day Years Used Date Smoking Tobacco: Never Assessed Sex Assigned at Date Recorded Not on file documented as of this encounter Progress Notes Naheed Tyler - 02/15/2000 12:00 AM CDTS: The patient is a 29-year-old female who complains of a one week history of rash to the back of her neck. She states initially she noticed an itchy patch to the left posterior side. She placed some previously prescribed antifungal cream on the area with minimal results. Then she noticed a similar patch to the right posterior neck. Since the cream did not appear to help, she did not put any additional cream on this new area. She states the areas itch, and after she scratches them, the area jimenes. She has not been using any new hair products, skin lotions or soap as of late. O: Alert and oriented female in no distress. Skin: hyperpigmented, diffusely raised rash in 2 discrete patches, each approximately the size of a nickel over the posterior neck. There is no surrounding skin redness, swelling, or warmth. A/P: Dermatitis. Will start Lidex cream once to twice a day until rash clears. Patient may have been exposed to irritant or allergen over the past week. If she can recall such triggers, she should avoid in the future. If rash improves, she can follow-up prn. Otherwise we can refer her for dermatology. IN SUMMARY: DERMATITIS. cc: documented in this encounter Plan of Treatment Not on filedocumented as of this encounter Visit Diagnoses Diagnosis Contact dermatitis and other eczema, due to unspecified cause documented in this encounter Care Teams Regional Otr Company Driver Relationship Specialty Start Date End Date Keya Gay MD PCP - General 04/01/1998 04/04/[address] [place] [address] documented as of this encounter
--- OUTSIDE RECORDS SUMMARY | 2022-04-03 07:11 | XMS_ITS | Encounter Summary ---
:1970 Author Organization [employer] Address [address] [place] [address] Care Team Providers Name Role Phone Keya Gay MD Primary Care Provider Reason for Visit Reason Comments HEADACHE VIA INTERFACE Encounter Details Date Type Department Care Team Description 03/01/2000 Office Visit [facility] Fartun Tyler MD HEADACHE Practice [facility] [address] [facility] [address] [place], [place] [address] [place] [address] [phone] Social History Tobacco Use Types Packs/Day Years [...] pad to this area. She can continue [id number] Tylenol or Motrin. We discussed the etiology [...] Headache documented in this encounter Care Teams Shoe Stitcher Odd Relationship Specialty Start Date End Date Keya Gay MD PCP - General 04/01/1998 04/04/[address] [place] [address] [address] documented as of this encounter
--- OUTSIDE RECORDS SUMMARY | 2022-04-03 07:11 | XMS_ITS | Encounter Summary ---
:1970 Author Organization [employer] Address [address] [place] [address] Care Team Providers Name Role Phone Oh Gray MD Primary Care Provider Encounter Details Date Type Department Care Team Description 09/06/2000 Orders Only Epic, [place] [address] Social History Tobacco Use Types Packs/Day Years Used Date Smoking Tobacco: Never Assessed Sex Assigned at Date Recorded Not on file documented as of this encounter Plan of Treatment Not on filedocumented as of this encounter Visit Diagnoses Not on filedocumented in this encounter Care Teams Outpatient Psychiatrist Relationship Specialty Start Date End Date Oh Gray MD PCP - General 04/05/00 06/30/07 [facility] [address] [place] [address] documented as of this encounter
--- OUTSIDE RECORDS SUMMARY | 2022-04-03 07:11 | XMS_ITS | Encounter Summary ---
:1970 Author Organization [employer] Address [address] [place] [address] Care Team Providers Name Role Phone Oh Gray MD Primary Care Provider Encounter Details Date Type Department Care Team Description 01/03/2002 Office Visit [facility] Oh Gray W/O LOLI Redmond MD INTRACTABLE [address] [place] [address] [facility] [address] [place], [place] [phone] [id number] Social History Tobacco Use Types Packs/Day Years Used Date Smoking Tobacco: Never Assessed Sex Assigned at Date Recorded Not on file documented as of this encounter Progress Notes Oh Gray - 01/03/2002 12:00 AM CDTS: This 31-year-old, black, female [facility] [facility] employee is here alone for headache. She is having frequent headaches now a days. This one began yesterday in the left neck and scalp radiating into the eye. It is off and on on the left. Occasionally in the right. There is photophobia, phonophobia and nausea. This is a common headache to her. It is not different in any way. Her headaches usually respond to rest and ibuprofen. She has tried Excedrin Migraine. None of these seemed to help this time. O: Healthy adult female in no acute distress. WEIGHT 142. TEMPERATURE 98. PULSE 64. RESPIRATIONS 20. BLOOD PRESSURE 110/60. She is not otherwise examined. A: Common migraine. P: Discussed etiology and various controls for headache. She has not tried Midrin, so she is given that, 2 at first, then 1 every hour as needed. Maximum 5 caps in 12 hours. Amitriptyline 10 mg 1 to 3 at bedtime, number 60, refill prn, as a preventive. 15 minutes of this 20 minute appointment were spent in coordination of care and counseling. IN SUMMARY: COMMON MIGRAINE. cc: documented in this encounter Plan of Treatment Not on filedocumented as of this encounter Visit Diagnoses Diagnosis Migraine, unspecified, without mention o f intractable migraine without mention of status migrainosus documented in this encounter Care Teams Relief Salesperson Relationship Specialty Start Date End Date Oh Gray MD PCP - General 04/05/00 06/30/[address] [address] documented as of this encounter
--- OUTSIDE RECORDS SUMMARY | 2022-04-03 07:11 | XMS_ITS | Encounter Summary ---
:1970 Author Organization [employer] Address [address] [place] [address] Care Team Providers Name Role Phone Keya Gay MD Primary Care Provider Encounter Details Date Type Department Care Team Description 03/01/2000 Orders Only Epic, [place] [address] Social History Tobacco Use Types Packs/Day Years Used Date Smoking Tobacco: Never Assessed Sex Assigned at Date Recorded Not on file documented as of this encounter Plan of Treatment Not on filedocumented as of this encounter Visit Diagnoses Not on filedocumented in this encounter Care Teams Driver Guard Relationship Specialty Start Date End Date Keya Gay MD PCP - General 04/01/1998 04/04/00 [address] [place] [address] documented as of this encounter
--- OUTSIDE RECORDS SUMMARY | 2022-04-03 07:12 | XMS_ITS | Encounter Summary ---
:1970 Author Organization [employer] Address [address] [place] [address] Care Team Providers Name Role Phone Keya Gay MD Primary Care Provider Encounter Details Date Type Department Care Team Description 01/19/2000 Orders Only Epic, [place] [address] Social History Tobacco Use Types Packs/Day Years Used Date Smoking Tobacco: Never Assessed Sex Assigned at Date Recorded Not on file documented as of this encounter Plan of Treatment Not on filedocumented as of this encounter Visit Diagnoses Not on filedocumented in this encounter Care Teams Market Investigator Relationship Specialty Start Date End Date Keya Gay MD PCP - General 04/01/1998 04/04/00 [address] [place] [address] documented as of this encounter
--- OUTSIDE RECORDS SUMMARY | 2022-04-03 07:12 | XMS_ITS | Encounter Summary ---
:1970 Author Organization [employer] Address [address] [place] [address] Care Team Providers Name Role Phone Chirag Metzger PA-C Primary Care Provider Encounter Details Date Type Department Care Team Description 11/03/1999 Orders Only Keya Gay MD [address] [place] [address] (Wo rk) Social History Tobacco Use Types Packs/Day Years Used Date Smoking Tobacco: Never Assessed Sex Assigned at Date Recorded Not on file documented as of this encounter Plan of Treatment Not on filedocumented as of this encounter Visit Diagnoses Not on filedocumented in this encounter Care Teams Environmental Scientist Relationship Specialty Start Date End Date Chirag Metzger PA-C PCP - General Physician Assembler For Puller Over Hand 07/06/[address] [place] [address] documented as of this encounter
--- OUTSIDE RECORDS SUMMARY | 2022-04-03 07:12 | XMS_ITS | Encounter Summary ---
:1970 Author Organization [facility] Address [address] [place] [address] Care Team Providers Name Role Phone Chirag Metzger PA-C Primary Care Provider Encounter Details Date Type Department Care Team Description 09/02/1999 Orders Only Andrew Pappas MD [address] [place], [place] [id number] (Wo rk) Social History Tobacco Use Types Packs/Day Years Used Date Smoking Tobacco: Never Assessed Sex Assigned at Date Recorded Not on file documented as of this encounter Plan of Treatment Not on filedocumented as of this encounter Visit Diagnoses Not on filedocumented in this encounter Care Teams Fur Designer Relationship Specialty Start Date End Date Chirag Metzger PA-C PCP - General Physician Medic Technician 07/06/[address] [place] [address] documented as of this encounter
--- OUTSIDE RECORDS SUMMARY | 2022-04-03 07:12 | XMS_ITS | Encounter Summary ---
:1970 Author Organization [employer] Address [address] [place] [address] Care Team Providers Name Role Phone Chirag Metzger PA-C Primary Care Provider Encounter Details Date Type Department Care Team Description 08/22/1999 Orders Only Vanda, Luis Fernando montoya MD [address] [place] [address] [place] [address] (Wo rk) Social History Tobacco Use Types Packs/Day Years Used Date Smoking Tobacco: Never Assessed Sex Assigned at Date Recorded Not on file documented as of this encounter Plan of Treatment Not on filedocumented as of this encounter Visit Diagnoses Not on filedocumented in this encounter Care Teams Jackhammer Splitter Operator Relationship Specialty Start Date End Date Chirag Metzger PA-C PCP - General Physician Dye Reel Operator 07/06/16 [address] [place] [address] documented as of this encounter
--- OUTSIDE RECORDS SUMMARY | 2022-04-03 07:12 | XMS_ITS | Encounter Summary ---
:1970 Author Organization [employer] Address [address] [place] [address] Care Team Providers Name Role Phone Chirag Metzger PA-C Primary Care Provider Encounter Details Date Type Department Care Team Description 12/16/1999 Orders Only Epic, [place] [address] Social History Tobacco Use Types Packs/Day Years Used Date Smoking Tobacco: Never Assessed Sex Assigned at Date Recorded Not on file documented as of this encounter Plan of Treatment Not on filedocumented as of this encounter Visit Diagnoses Not on filedocumented in this encounter Care Teams Expander Relationship Specialty Start Date End Date Chirag Metzger PA-C PCP - General Physician Supervisor Estimator And Drafter 07/06/16 [address] [place] [id number] documented as of this encounter
--- OUTSIDE RECORDS SUMMARY | 2022-04-03 07:12 | XMS_ITS | Encounter Summary ---
:1970 Author Organization [employer] Address [address] [place] [address] Care Team Providers Name Role Phone Chirag Metzger PA-C Primary Care Provider Encounter Details Date Type Department Care Team Description 07/01/1999 Orders Only Keya Gay MD [address] [place] [address] (Wo rk) Social History Tobacco Use Types Packs/Day Years Used Date Smoking Tobacco: Never Assessed Sex Assigned at Date Recorded Not on file documented as of this encounter Plan of Treatment Not on filedocumented as of this encounter Visit Diagnoses Not on filedocumented in this encounter Care Teams Cpas Relationship Specialty Start Date End Date Chirag Metzger PA-C PCP - General Physician Online Trader 07/06/[address] [place] [address] documented as of this encounter
--- OUTSIDE RECORDS SUMMARY | 2022-04-03 07:12 | XMS_ITS | Encounter Summary ---
:1970 Author Organization [employer] Address [address] [place] [address] Care Team Providers Name Role Phone Keya Gay MD Primary Care Provider Reason for Visit Reason Comments EARACHE VIA INTERFACE Encounter Details Date Type Department Care Team Description 06/10/1999 Office Visit [facility] Keya Gay, STR EP SORE THROAT; Practice MD LABORATORY EXAMINATION [address] [facility] [address] [place], [place] [id number] [phone] Social History Tobacco Use Types Packs/Day Years Used Date Smoking Tobacco: Never Assessed Sex Assigned at Date Recorded Not on file documented as of this encounter Progress Notes Keya Gay - 06/10/1999 12:00 AM CSTS: This is a 29-year-old female who noticed left ear pain that started today. Generalized aching and some back spasms, sore throat, some nausea, no obvious fevers, having some nasal congestion. Concerned about her weight. On control pills. On Met[employer]ife. 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 O: Alert and cooperative. Weight: 148. Temperature not done. Pulse 92. Blood pressure 110/54. Both tympanic membranes were pearly-de los santos in color. Nose: mild swelling on the right. No maxillary sinus tenderness. Posterior pharynx showed erythematous tonsillar beds. Neck was supple with tender submandibular lymphadenopathy. Lungs were clear. Rapid strep positive. A: Strep pharyngitis. P: Pen VK 500 1 po b.i.d x 10 days, warm salt water gargles, plenty of fluids, washing hands frequently, Tylenol as needed. Follow-up prn. Off work for the next day. IN SUMMARY: STREP PHARYNGITIS cc: documented in this encounter Plan of Treatment Not on filedocumented as of this encounter Visit Diagnoses Diagnosis Streptococcal sore throat Laboratory examination documented in this encounter Care Teams Physical Optics Teacher Relationship Specialty Start Date End Date Keya Gay MD PCP - General 04/01/1998 04/04/[address] [place] [address] documented as of this encounter
--- OUTSIDE RECORDS SUMMARY | 2022-04-03 07:12 | XMS_ITS | Encounter Summary ---
:1970 Author Organization [facility] Address [address] [place] [address] Care Team Providers Name Role Phone Keya Gay MD Primary Care Provider Reason for Visit Reason Comments Dental Concerns Encounter Details Date Type Department Care Team Description 11/01/1999 Telephone Careline Anayeli L[place], Dental Concerns [address] RN [place], [place] [address] AFTER HOURS CARE [phone] [address] [place] [address] Social History Tobacco Use Types Packs/Day Years Used Date Smoking Tobacco: Never Assessed Sex Assigned at Date Recorded Not on file documented as of this encounter Nursing Notes 11/01/1999 11:59 PM CDT CALL RECEIVED. Contact: self [phone] TRIAGE REFERENCE: DENTAL TRAUMA - TRAUMA CNG [...] states that she has an appt at [facility] dental on november 17 to [...] on filedocumented in this encounter Care Teams Fashion Marketer Relationship Specialty Start Date End Date Keya Gay MD PCP - General 04/01/1998 04/04/[address] [place] [address] documented as of this encounter
--- OUTSIDE RECORDS SUMMARY | 2022-04-03 07:12 | XMS_ITS | Encounter Summary ---
:1970 Author Organization [employer] Address [address] [place] [address] Care Team Providers Name Role Phone Keya Gay MD Primary Care Provider Reason for Visit Reason Comments HEADACHE VIA INTERFACE Encounter Details Date Type Department Care Team Description 11/18/[address] [facility] Chantell Gay MD HEADACHE Practice [address] [facility] [address] [place] [address] [place], [place] [address] [phone] Social History Tobacco Use Types Packs/Day Years [...] Headache documented in this encounter Care Teams Hogshead Salvage Relationship Specialty Start Date End Date Keya Gay MD PCP - General 04/01/1998 04/04/[address] [place] [address] documented as of this encounter
--- OUTSIDE RECORDS SUMMARY | 2022-04-03 07:12 | XMS_ITS | Encounter Summary ---
:1970 Author Organization [employer] Address [address] [place] [address] Care Team Providers Name Role Phone Keya Gay MD Primary Care Provider Reason for Visit Reason Comments SKIN TAGS VIA INTERFACE Encounter Details Date Type Department Care Team Description 12/07/1998 Office Visit [facility] Deena Fry S KIN HYPERTRO/ATROPH NOS; Practice CONCRETE BUCKET UNLOADER, LITERACY TUTOR INTEGUMENT TISS SYMP NEC; [address] [facility] [address] [place] [address] [place] [address] [phone] (Wo rk) Social History Tobacco Use Types [...] 1. Keara is given written information on [facility] weight management program i.e. [facility] a Call to Change and Balanced [...] unspecified documented in this encounter Care Teams Chairperson Anesthesiology Relationship Specialty Start Date End Date Keya Gay MD PCP - General 04/01/1998 04/04/[address] [place] [address] documented as of this encounter
--- OUTSIDE RECORDS SUMMARY | 2022-04-03 07:12 | XMS_ITS | Encounter Summary ---
:1970 Author Organization [facility] Address [address] [place] [address] Care Team Providers Name Role Phone Keya Gay MD Primary Care Provider Encounter Details Date Type Department Care Team Description 06/10/1999 Orders Only Keya Gay MD [address] [place], [place] [address] (Wo rk) Social History Tobacco Use Types Packs/Day Years Used Date Smoking Tobacco: Never Assessed Sex Assigned at Date Recorded Not on file documented as of this encounter Plan of Treatment Not on filedocumented as of this encounter Procedures Procedure Name Priority Date/Time Associated Diagnosis Comme nts STREP GRP A, RAPID Waiting 06/10/1999 1:36 PM Res ults for this SCREEN FORESTER AIDE procedure are i n the results section. documented in this encounter Results (ABNORMAL) RAPID, GPA STREP SCREEN (WAITI (06/10/1999 1:36 PM FORESTER AIDE) [facility] gist Method Time Signature Patient Home None [email or web address] Phone # Patient Work None [email or web address] Phone # Grp A Rapid Positive (A) [facility] Screen Specimen Anatomical Collection Method Collection Time Receive d Time (Source) Location / / Volume Laterality 06/10/1999 1:36 PM 0 1:37 FORESTER AIDE PM FORESTER AIDE Keya Gay MD LAB_1 Performing Organization Address City/State/ZIP Code Phon e Number [facility] [phone] [facility] [address] [id number] documented in this encounter Visit Diagnoses Not on filedocumented in this encounter Care Teams Intermodal Customer Service Relationship Specialty Start Date End Date Keya Gay MD PCP - General 04/01/1998 04/04/[address] [place] [address] documented as of this encounter
--- OUTSIDE RECORDS SUMMARY | 2022-04-03 07:12 | XMS_ITS | Encounter Summary ---
:1970 Author Organization [employer] Address [address] [place] [address] Care Team Providers Name Role Phone Keya Gay MD Primary Care Provider Reason for Visit Reason Comments Sore VIA INTERFACE Encounter Details Date Type Department Care Team Description 05/30/1999 Office Visit [facility] STOMATITIS [address] [place], [place] [address] Social History Tobacco Use [...] of stress, as her was taken to nursing home last week for suspicion of robbery. She [...] with Mental Health. FOLLOW UP: prn. cc: PER DIPPER documented in this encounter Plan of Treatment Not on filedocumented as of this encounter Visit Diagnoses Diagnosis Stomatitis and mucositis (ulcerative) documented in this encounter Care Teams Survey Technologist Relationship Specialty Start Date End Date Keya Gay MD PCP - General 04/01/1998 04/04/[address] [place] [address] documented as of this encounter
--- OUTSIDE RECORDS SUMMARY | 2022-04-03 07:12 | XMS_ITS | Encounter Summary ---
:1970 Author Organization [employer] Address [address] [place] [address] Care Team Providers Name Role Phone Keya Gay MD Primary Care Provider Reason for Visit Reason Comments SINUS PAIN/PRESSURE VIA INTERFACE Encounter Details Date Type Department Care Team Description 08/22/1999 Office Visit [facility] [place] HEADACHE [address] [place], [place] [address] Social History Tobacco Use [...] documented in this encounter Care Teams Supervisor Warping Department Relationship Specialty Start Date End Date Keya Gay MD PCP - General 04/01/1998 04/04/[address] [place] [address] documented as of this encounter
--- OUTSIDE RECORDS SUMMARY | 2022-04-03 07:12 | XMS_ITS | Encounter Summary ---
:1970 Author Organization [employer] Address [address] [place] [address] Care Team Providers Name Role Phone Keya Gay MD Primary Care Provider Reason for Visit Reason Comments SLEEP,INABILITY TO VIA INTERFACE Encounter Details Date Type Department Care Team Description 07/01/1999 Office Visit [facility] Keya Gay, ACU TE STRESS REACT NEC; Practice MD SLEEP DISTURBANCE NOS; [address] [facility] [address] COUNSELING, DIETARY [place], [place] [phone] Social History Tobacco Use Types Packs/Day Years [...] encouraged her to talk to her supervisor testing at work to try to set some [...] counseling documented in this encounter Care Teams Spring Setter Relationship Specialty Start Date End Date Keya Gay MD PCP - General 04/01/1998 04/04/[address] [place] [address] documented as of this encounter
--- OUTSIDE RECORDS SUMMARY | 2022-04-03 07:12 | XMS_ITS | Encounter Summary ---
:1970 Author Organization [facility] Address [address] [place] [address] Care Team Providers Name Role Phone Keya Gay MD Primary Care Provider Reason for Visit Reason Comments Mental Health Concerns av adult 11 with daughter gucci Hernandez Encounter Details Date Type Department Care Team Description 05/30/1999 Telephone Careline Julianna Bowman Mental Health Concerns [address] SMahnaz Ozuna, TYPE MAPPER, INTERNAL RECRUITER (av adult 11 with [place], [place] [address] daughter ehsan); [phone] [place], [place] [address] Social History Tobacco Use Types Packs/Day Years Used Date Smoking Tobacco: Never Assessed Sex Assigned at Date Recorded Not on file documented as of this encounter Nursing Notes 05/30/1999 11:59 PM STEPDOWN NURSE >> CALL RECEIVED. Contact: mom >> JULIANNA BOWMAN 05/30/1999 05:27 pm under much stress, can't sleep, no thoughts of hurting self or others; sore corner of mouth, size of pencil eraser, sx x 2d, getting bigger, jimenes, documented in this encounter Plan of Treatment Not on filedocumented as of this encounter Visit Diagnoses Not on filedocumented in this encounter Care Teams Bucket Turner Relationship Specialty Start Date End Date Keya Gay MD PCP - General 04/01/1998 04/04/[address] [place] [address] documented as of this encounter
--- OUTSIDE RECORDS SUMMARY | 2022-04-03 07:12 | XMS_ITS | Encounter Summary ---
:1970 Author Organization [employer] Address [address] [place] [address] Care Team Providers Name Role Phone Chirag Metzger PA-C Primary Care Provider Encounter Details Date Type Department Care Team Description 01/06/2000 Orders Only Vanda, Luis Fernando montoya MD [address] [place] [address] [place] [phone] (Wo rk) Social History Tobacco Use Types Packs/Day Years Used Date Smoking Tobacco: Never Assessed Sex Assigned at Date Recorded Not on file documented as of this encounter Plan of Treatment Not on filedocumented as of this encounter Visit Diagnoses Not on filedocumented in this encounter Care Teams Funder Relationship Specialty Start Date End Date Chirag Metzger PA-C PCP - General Physician Automation Qa Lead 07/06/16 [address] [place] [id number] documented as of this encounter
--- OUTSIDE RECORDS SUMMARY | 2022-04-03 07:12 | XMS_ITS | Encounter Summary ---
:1970 Author Organization [email or web address] Address [address] [place] [address] Care Team Providers Name Role Phone Keya Gay MD Primary Care Provider Reason for Visit Reason Comments RASH VIA INTERFACE Encounter Details Date Type Department Care Team Description 12/20/1999 Office Visit [facility] [place] [address] [place], [place] [address] Social History Tobacco Use [...] cause documented in this encounter Care Teams Bonbon Cream Warmer Relationship Specialty Start Date End Date Keya Gay MD PCP - General 04/01/1998 04/04/[address] [place] [address] documented as of this encounter
--- OUTSIDE RECORDS SUMMARY | 2022-04-03 07:12 | XMS_ITS | Encounter Summary ---
:1970 Author Organization [facility] Address [address] [place] [address] Care Team Providers Name Role Phone Keya Gay MD Primary Care Provider Reason for Visit Reason Comments Refill Encounter Details Date Type Department Care Team Description 03/12/1999 Telephone Careline Felecia Almendarez, RN Refill [address] [place], [place] [address] [phone] [place] [address] Social History Tobacco Use Types Packs/Day Years [...] smear Called prescription in to [facility] in [place]. Called back pt. who verbalized understanding of above. >> CALL RECEIVED. Contact: ,self >> FELECIA ALMENDAREZ 03/12/1999 05:03 pm Concern: ran out of control pills, needs a refill called in to [facility] [place]. Med's: alesse-28 1 po daily Med Allergies: (none) Plan: will page physician dimension mill worker documented in this encounter Plan of Treatment Not on filedocumented as of this encounter Visit Diagnoses Not on filedocumented in this encounter Care Teams Production Leader Relationship Specialty Start Date End Date Keya Gay MD PCP - General 04/01/1998 04/04/[address] [place] [address] documented as of this encounter
--- OUTSIDE RECORDS SUMMARY | 2022-04-03 07:12 | XMS_ITS | Encounter Summary ---
:1970 Author Organization [facility] Address [address] [place] [address] Care Team Providers Name Role Phone Keya Gay MD Primary Care Provider Reason for Visit Reason Comments HEADACHE Encounter Details Date Type Department Care Team Description 11/08/1999 Telephone Careline Deidra Prado RN HEADACHE [address] [place], [place] [address] [phone] [place] [address] Social History Tobacco Use Types Packs/Day Years [...] filedocumented in this encounter Care Teams Glass Tinter Relationship Specialty Start Date End Date Keya Gay MD PCP - General 04/01/1998 04/04/[address] [place] [address] [address] documented as of this encounter
--- OUTSIDE RECORDS SUMMARY | 2022-04-03 07:12 | XMS_ITS | Encounter Summary ---
:1970 Author Organization [employer] Address [address] [place] [address] Care Team Providers Name Role Phone Keya Gay MD Primary Care Provider Reason for Visit Reason Comments CONSULT VIA INTERFACE Encounter Details Date Type Department Care Team Description 01/19/2000 Office Visit [facility] Deena Fry C OUNSELING, DIETARY Practice COP EXAMINER, TERRITORY SALES MANAGER MEDICAL [id number] [place] [address] [phone] (Wo rk) Social History Tobacco Use Types Packs/Day Years Used Date Smoking Tobacco: Never Assessed Sex Assigned at Date Recorded Not on file documented as of this encounter Progress Notes Deena Fry - 01/19/2000 12:00 AM CDTSUBJECTIVE: Ldsqna-zoht-aks woman presents to clinic for consultation regarding stress in her life. She is suffering from many stressors. She was and her is currently incarcerated for 2 years. 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 She has been working with a oncology social work regarding getting some financial assistance; however, she [...] counseling documented in this encounter Care Teams Airplane Refueler Relationship Specialty Start Date End Date Keya Gay MD PCP - General 04/01/1998 04/04/[address] [place] [address] documented as of this encounter
--- OUTSIDE RECORDS SUMMARY | 2022-04-03 07:12 | XMS_ITS | Encounter Summary ---
:1970 Author Organization [facility] Address [address] [place] [address] Care Team Providers Name Role Phone Padmini Park PA-C Primary Care Provider Encounter Details Date Type Department Care Team Description 10/21/1999 Orders Only Sydney Dumont MD [address] [place], [place] [phone] [place] [address] (Wo rk) Social History Tobacco [...] PAP SMEAR, ROUTINE (10/21/1999 5:22 PM CDT) [facility] Method Time Signature Pap Smear, See Separate Report [facility] Routine Performed at [facility] Specimen Anatomical Collection Method Collection Time Receive d Time (Source) Location / / Volume Laterality 10/21/1999 5:22 PM 0 5:23 CDT PM CDT Sydney Mcelroy MD LAB_1 Performing Organization Address City/State/ZIP Code Phon e Number [facility] [phone] [address] documented in this encounter Visit Diagnoses Not on filedocumented in this encounter Care Teams Die Hardener Relationship Specialty Start Date End Date Padmini Park PA-C PCP - General Family Practice 04/05/12 01/19/16 documented as of this encounter
--- OUTSIDE RECORDS SUMMARY | 2022-04-03 07:12 | XMS_ITS | Encounter Summary ---
:1970 Author Organization [facility] Address [address] [place] [address] Care Team Providers Name Role Phone Padmini Park PA-C Primary Care Provider Encounter Details Date Type Department Care Team Description 10/21/1999 Orders Only Sydney Dumont MD [address] [place], [place] [phone] [place] [address] (Wo rk) Social History Tobacco Use Types Packs/Day Years Used Date Smoking Tobacco: Never Assessed Sex Assigned at Date Recorded Not on file documented as of this encounter Plan of Treatment Not on filedocumented as of this encounter Procedures Procedure Name Priority Date/Time Associated Diagnosis Comme nts HEMOGRAM Routine 10/21/1999 11:11 AM Results for this CDT procedure are i n the results section. CHOLESTEROL, TOTAL Routine 10/21/1999 11:11 AM Re sults for this AND HDL CDT procedure are i n the results section. DIFF IF Routine 10/21/1999 11:11 AM Results for this CDT procedure are i n the results section. documented in this encounter Results CHOLESTEROL, TOTAL AND HDL (10/21/1999 11:11 AM CDT) athologist Signature Cholesterol 162 <200 mg/dl [facility] HDL 50 >35 mg/dl [facility] Specimen Anatomical Collection Method Collection Time Receive d Time (Source) Location / / Volume Laterality 10/21/1999 11:11 10/21/1999 AM CDT 11:12 AM CDT Sydney Mcelroy MD LAB_1 Performing Organization Address City/[facility] Phon e Number [facility] [phone] [facility] [address] [phone] DIFF IF (10/21/1999 11:11 AM CDT) [facility] gist Method Time Signature Diff If Diff Not [facility] Indicated Specimen Anatomical Collection Method Collection Time Receive d Time (Source) Location / / Volume Laterality 10/21/1999 11:11 10/21/1999 AM CDT 11:12 AM CDT Sydney Mcelroy MD LAB_1 Performing Organization Address [facility] Phon e Number [facility] [phone] [phone] HEMOGRAM (10/21/1999 11:11 AM CDT) P athologist Signature WBC 6.0 3.6 - 11.0 [facility] k/ul RBC 4.01 4.0 - 5.2 [facility] M/ul Hemoglobin 12.0 12.0 - 16.0 [facility] g/dl HCT 36.2 36.0 - 46.0 [facility] % MCV 90.3 80 - 100 fl [facility] MCH 30.0 26 - 34 pg [facility] MCHC 33.2 32 - 36 % [facility] RDW 12.2 11.5 - 14.5 [facility] % Specimen Anatomical Collection Method Collection Time Receive d Time (Source) Location / / Volume Laterality 10/21/1999 11:11 10/21/1999 AM CDT 11:12 AM CDT Sydney Mcelroy MD LAB_1 Performing Organization Address City/[facility] Phon e Number [facility] [phone] [facility] [address] [place] [phone] documented in this encounter Visit Diagnoses Not on filedocumented in this encounter Care Teams Physical Therapy Assistant Relationship Specialty Start Date End Date Padmini Park PA-C PCP - General Family Practice 04/05/12 01/19/16 documented as of this encounter
--- OUTSIDE RECORDS SUMMARY | 2022-04-03 07:12 | XMS_ITS | Encounter Summary ---
:1970 Author [facility] Address [address] [place] [address] Care Team Providers Name Role Phone Chirag Metzger PA-C Primary Care Provider Encounter Details Date Type Department Care Team Description 12/20/1999 Orders Only Andrew Pappas MD [address] [place], [place] [phone] (Wo rk) Social History Tobacco Use Types Packs/Day Years Used Date Smoking Tobacco: Never Assessed Sex Assigned at Date Recorded Not on file documented as of this encounter Plan of Treatment Not on filedocumented as of this encounter Visit Diagnoses Not on filedocumented in this encounter Care Teams Mobile Sales Consultant Relationship Specialty Start Date End Date Chirag Metzger PA-C PCP - General Physician Hr Manager 07/06/[address] [place] [address] documented as of this encounter
--- OUTSIDE RECORDS SUMMARY | 2022-04-03 07:12 | XMS_ITS | Encounter Summary ---
:1970 Author Organization [employer] Address [address] [place] [address] Care Team Providers Name Role Phone Keya Gay MD Primary Care Provider Reason for Visit Reason Comments PE AND PAP VIA INTERFACE Encounter Details Date Type Department Care Team Description 10/21/1999 Office Visit [facility] Sydney Mcelroy GYNEC OLOGIC EXAMINATION; Practice [facility] LAB[facility]AM[facility] [address] [phone] Social History Tobacco Use Types Packs/Day Years [...] examination documented in this encounter Care Teams Content Strategist Relationship Specialty Start Date End Date Keya Gay MD PCP - General 04/01/1998 04/04/[address] [place] [address] documented as of this encounter
--- OUTSIDE RECORDS SUMMARY | 2022-04-03 07:12 | XMS_ITS | Encounter Summary ---
:1970 Author Organization [facility] Address [address] [place] [address] Care Team Providers Name Role Phone Oh Gray MD Primary Care Provider Encounter Details Date Type Department Care Team Description 10/21/1999 Orders Only Unknown, Physici an [address] [place], [place] [address] (Wo rk) Social History Tobacco Use Types Packs/Day Years Used Date Smoking Tobacco: Never Assessed Sex Assigned at Date Recorded Not on file documented as of this encounter Plan of Treatment Not on filedocumented as of this encounter Procedures Procedure Name Priority Date/Time Associated Diagnosis Comme nts UNPAID INTERN CYTOLOGY Routine 10/21/1999 10:30 AM Results for this CDT procedure are i n the results section . documented in this encounter Results UNPAID INTERN CYTOLOGY (10/21/1999 10:30 AM CDT) [facility] Method Time Signature Hand Nailer Cytology Hand Nailer Cytology Report [facility] Patient Name: KEARA ROB Taken: 10/21/99 Received: 10/25/99 Reported: 10/27/99 Physician(s): Alfreda Sheth MD PhD ([id number]) NILAY RANGEL ? [id number] Final Cytologic Diagnosis Cervical Endocervical,routine: ? Satisfactory [...] History: Other Clinical Conditions: LAST PAP: 05/04/97 [id number] Other Related Clinical Data Specimen Anatomical Collection Method Collection Time Receive d Time (Source) Location / / Volume Laterality 10/21/1999 10:30 10/25/1999 9:12 AM CDT AM CDT Physician Unknown UNLISTED CODE Performing Organization Address City/State/ZIP Code Phon e Number [address] [address] [place], [place] [phone] documented in this encounter Visit Diagnoses Not on filedocumented in this encounter Care Teams Marine Pilot Relationship Specialty Start Date End Date Oh Gray MD PCP - General 04/05/00 06/30/07 [facility] [id number] [place] [address] documented as of this encounter
--- OUTSIDE RECORDS SUMMARY | 2022-04-03 07:12 | XMS_ITS | Encounter Summary ---
:1970 Author Organization [facility] Address [address] [place] [address] Care Team Providers Name Role Phone Keya Gay MD Primary Care Provider Reason for Visit Reason Comments ANKLE PAIN VIA INTERFACE Encounter Details Date Type Department Care Team Description 09/02/1999 Office Visit [facility] Andrew Pappas, ENT HESOPATHY, SITE NOS; Practice MD [place] NOS; [address] [facility] [address] [place] [address] [phone] Social History Tobacco Use Types Packs/Day Years Used Date Smoking Tobacco: Never Assessed Sex Assigned at Date Recorded Not on file documented as of this encounter Progress Notes Andrew Pappas - 09/02/1999 12:00 AM CDTS: Keara is in, she has several problems today. The first is peroneal tendonitis of the right ankle. This has been going on for two weeks. She was on vacation. Did a lot of walking over a wide variety of terrains, delmis terrain, [place] terrain. [place] pain posterior to her right lateral malleolus, and she still has discomfort there on certain movements. O: She doesn't have joint effusion, redness, or warmth on objective exam. She actually has full range of motion, but she has discomfort posteriorly over the peroneal tendon. A/P: I think it is a tendonitis. It is mild to moderate, so I'm going to treat her with oral ibuprofen 800 mg po tid with food, range of motion exercises, and ice massage. Hopefully, will come to good resolution. Recheck if symptoms persist or increase. S: She also has lower back pain with spasms on and off. Does not have sciatica pain with this. Pain is 100% in her back, and in the iliac crest region. No numbness, tingling, weakness or other symptoms radiating into her legs. No abdominal pain, nausea, vomiting, diarrhea. No dysuria, frequency, hesitancy, urgency. No generalized fever, chills or achiness. P: I elected to give her a back care book, and encouraged her in regular aerobic type exercise as her ankle gets better, regular stretching exercises for her back as instructed in the back book, and I did a brief instruction on proper posture, and gentle stretching exercises at this time. Take the ibuprofen and add Flexeril 10 mg po. She can take this especially at bedtime to get better quality sleep, to see if this will help her. If she is off of work, and not driving, she could take this during the day, as well. S: Problem 3: weight loss. Keara requests appetite suppressant medication for her weight. She is 5 foot 1 inch, and weighs 145 pounds, so she is overweight. She has average bone size. So her ideal weight probably would be 122 lb. Per our weight information table for [facility]. So, she is just below the 120% of her ideal weight. She is not really a candidate for appetite suppression medication in my mind, and as I have not been prescribing any of the appetite suppressant meds of late I explained that to her and we had a discussion. I did discuss with her the [employer] Power or the [employer] program which has been beneficial for some people and the [facility] phone line weight loss program as well. She wasn't real enthusiastic, so I am not certain that that will be of help to her, but that is what I had to offer her today. Will follow. documented in this encounter Plan of Treatment Not on filedocumented as of this encounter Visit Diagnoses Diagnosis Enthesopathy of unspecified site Sprain of unspecified site of back Obesity, unspecified ([facility]) Obesity, unspecified documented in this encounter Care Teams Coal Equipment Operator Relationship Specialty Start Date End Date Keya Gay MD PCP - General 04/01/1998 04/04/[address] [place] [address] documented as of this encounter
--- OUTSIDE RECORDS SUMMARY | 2022-04-03 07:13 | XMS_ITS | Encounter Summary ---
:1970 Author Organization [facility] [employer] Address [address] [place] [address] Care Team Providers Name Role Phone Keya Gay MD Primary Care Provider Reason for Visit Reason Comments Medication Questions currently out of area Encounter Details Date Type Department Care Team Description 11/20/1998 Telephone Careline Marti Payton geriatric social worker Questions [address] AFTER HOURS CARE (currently out of [place] [phone] [address] [facility]) [phone] [place] [address] Social History Tobacco Use Types Packs/Day Years Used Date Smoking Tobacco: Never Assessed Sex Assigned at Date Recorded Not on file documented as of this encounter Nursing Notes 11/20/1998 11:59 PM CDT >> CALL RECEIVED. Contact: pt [phone] >> MARTI PAYTON 11/20/1998 10:00 am concern: Forgot to supervisor picking crew her rx at the pharmacy for BC pills. Just wondering if she could miss over 3 days. Stat symptoms: none per Control Pills CNG '98 discussed per Control Pills CNG. not discussed per Control Pills-Spotting CNG. discussed per Control Pills - Missed BCP's CNG. not discussed per Control Pills-side Effect/Contraindications CNG. not discussed per Control Pills/Attempting CNG. PMH: was being placed on bc pills to control heavy and painful periods Had an ultrasound done and they discovered possible fibroid cysts. Was to start the pill on Sunday but won't be in town till sunday >Patient has had a tubal so she is not using for control. PLAN: Has decided that she will start the pill the following month since she will not be in town to supervisor picking crew till sunday or later. Patient is comfortable with this and verbalizes and understands what she needs to do. documented in this encounter Plan of Treatment Not on filedocumented as of this encounter Visit Diagnoses Not on filedocumented in this encounter Care Teams Final Operations Technician Relationship Specialty Start Date End Date Keya Gay MD PCP - General 04/01/1998 04/04/[address] [place] [address] documented as of this encounter
--- OUTSIDE RECORDS SUMMARY | 2022-04-03 07:13 | XMS_ITS | Encounter Summary ---
:1970 Author Organization [facility] Address [address] [place] [address] Care Team Providers Name Role Phone Keya Gay MD Primary Care Provider Encounter Details Date Type Department Care Team Description 07/10/1998 Orders Only Epic, [place] [address] Social History Tobacco Use Types Packs/Day Years Used Date Smoking Tobacco: Never Assessed Sex Assigned at Date Recorded Not on file documented as of this encounter Plan of Treatment Not on filedocumented as of this encounter Procedures Procedure Name Priority Date/Time Associated Diagnosis Comme nts STREP GRP A, RAPID Waiting 07/10/1998 10:22 AM Re sults for this SCREEN SAUSAGE CANNER procedure are i n the results section. documented in this encounter Results (ABNORMAL) RAPID, GPA STREP SCREEN (WAITI (07/10/1998 10:22 AM SAUSAGE CANNER) [facility] gist Method Time Signature Patient Home [id number] Image Socket Phone # Patient Work None Image Socket Phone # Grp A Rapid Positive (A) Image Socket Screen Specimen Anatomical Collection Method Collection Time Receive d Time (Source) Location / / Volume Laterality 07/10/1998 10:22 07/10/1998 AM SAUSAGE CANNER 10:23 AM SAUSAGE CANNER Narrative [facility] - 07/10/1998 10:22 AM SAUSAGE CANNER Ordered by URGENT CARE Internal Processing Epic LAB_1 Performing Organization Address City/State/ZIP Code Phon e Number [facility] [phone] [facility] [address] [phone] documented in this encounter Visit Diagnoses Not on filedocumented in this encounter Care Teams Professional Golf Tournament Player Relationship Specialty Start Date End Date Keya Gay MD PCP - General 04/01/1998 04/04/[address] [place] [address] documented as of this encounter
--- OUTSIDE RECORDS SUMMARY | 2022-04-03 07:13 | XMS_ITS | Encounter Summary ---
:1970 Author Organization [facility] Address [address] [place] [address] Care Team Providers Name Role Phone Keya Gay MD Primary Care Provider Encounter Details Date Type Department Care Team Description 08/24/1998 Orders Only Dai Luna AP RN, STRAIGHT RULING MACHINE OPERATOR [address] [place], [place] [address] (Wo rk) Social History [...] - 1 SWAB (08/24/1998 2:41 PM CDT) [facility] Method Time Signature GC (N. Negative [facility] gonorrhoeae) Source Cervix [facility] Specimen Anatomical Collection Method Collection Time Receive d Time (Source) Location / / Volume Laterality 08/24/1998 2:41 PM 9 2:42 CDT PM CDT Dai Luna YANETH PEDRO LAB_1 Performing Organization Address City/[facility]/ZIP Code Phon e Number [facility] [phone] [phone] CHLAMYDIA - 1 SWAB (08/24/1998 2:41 PM CDT) [facility] Method Time Signature Chlamydia Negative NEG [facility] Test Performed by PCR Assay Source Cervix [facility] Specimen Anatomical Collection Method Collection Time Receive d Time (Source) Location / / Volume Laterality 08/24/1998 2:41 PM 9 2:42 CDT PM CDT Dai Luna YANETH PEDRO LAB_1 Performing Organization Address [facility] Phon e Number [facility] [phone] [phone] documented in this encounter Visit Diagnoses Not on filedocumented in this encounter Care Teams Toy Assembler Relationship Specialty Start Date End Date Keya Gay MD PCP - General 04/01/1998 04/04/[address] [place] [address] documented as of this encounter
--- OUTSIDE RECORDS SUMMARY | 2022-04-03 07:13 | XMS_ITS | Encounter Summary ---
:1970 Author Organization [employer] Address [address] [place] [address] Care Team Providers Name Role Phone Keya Gay MD Primary Care Provider Encounter Details Date Type Department Care Team Description 06/29/1998 Office Visit [facility] Keya Gay, DAMIEN DECKER NOS; Practice MD KEE NORM PHYSIOL DEVEL [address] [facility] [address] [place], [place] [address] [phone] Social History Tobacco Use Types Packs/Day Years [...] line services. She will meet with a needle grinder in our clinic one-on-one. I will follow [...] childhood documented in this encounter Care Teams Global Marketing Specialist Relationship Specialty Start Date End Date Keya Gay MD PCP - General 04/01/1998 04/04/[address] [place] [address] documented as of this encounter
--- OUTSIDE RECORDS SUMMARY | 2022-04-03 07:13 | XMS_ITS | Encounter Summary ---
:1970 Author Organization [employer] Address [address] [place] [address] Care Team Providers Name Role Phone Chirag [...] filedocumented in this encounter Care Teams Senior Agricultural Assistant Relationship Specialty Start Date End Date Chirag Metzger PA-C PCP - General Physician Car Shifter 07/06/[address] [id number] documented as of this encounter
--- OUTSIDE RECORDS SUMMARY | 2022-04-03 07:13 | XMS_ITS | Encounter Summary ---
:1970 Author Organization [employer] Address [address] [place] [address] Care Team Providers Name Role Phone Keya Gay MD Primary Care Provider Encounter Details Date Type Department Care Team Description 07/10/1998 Office Visit [facility] Daiana Salazar MD STREP SORE THROAT [place] OFF SITE [address] [place] [address] [place] [address] [address] [place], [place] [address] Social History Tobacco Use Types Packs/Day Years [...] intermittent chills and fever. She has used juoa-tbe-bcipwif NyQuil, with some relief of her symptoms. [...] throat documented in this encounter Care Teams Compounding Assistant Relationship Specialty Start Date End Date Keya Gay MD PCP - General 04/01/1998 04/04/[address] [place] [address] [place] [address] documented as of this encounter
--- OUTSIDE RECORDS SUMMARY | 2022-04-03 07:13 | XMS_ITS | Encounter Summary ---
:1970 Author Organization [employer] Address [address] [place] [address] Care Team Providers Name Role Phone Keya Gay MD Primary Care Provider Reason for Visit Reason Comments VAGINITIS VIA INTERFACE Encounter Details Date Type Department Care Team Description 08/24/1998 Office Visit [facility] Dai Luna LABORAT ORY EXAMINATION Practice LIVESTOCK INSPECTOR, [place] [address] [id number] Social History Tobacco Use Types Packs/Day Years Used Date Smoking Tobacco: Never Assessed Sex Assigned at Date Recorded Not on file documented as of this encounter Progress Notes Dai Luna - 08/24/1998 12:00 AM CDTS: 28-year-old female who presents with concerns regarding vaginitis and a burning with intercourse. She does have dysmenorrhea and does use Naprosyn every month. She has also noticed after she eats, she has some cramping and nausea. She has been using Tagamet prn. She has been using Vaseline. She does not have a new partner, although, has. O: External genitalia, vagina and cervix within normal limits. Bimanual exam is negative. A: P: Gen probe was taken. She will return to the clinic to see family practice, if abdominal symptoms do not subside. Encourage [place] Jelly or Trevon. No vaginitis observed today. I would encourage her to return to the clinic for routine health maintenance, and will recheck, if her symptoms continue. IN SUMMARY: VAGINITIS. cc: documented in this encounter Plan of Treatment Not on filedocumented as of this encounter Visit Diagnoses Diagnosis Laboratory examination documented in this encounter Care Teams Grinding Room Supervisor Relationship Specialty Start Date End Date Keya Gay MD PCP - General 04/01/1998 04/04/[address] [place] [address] documented as of this encounter
--- OUTSIDE RECORDS SUMMARY | 2022-04-03 07:13 | XMS_ITS | Encounter Summary ---
:1970 Author Organization [employer] Address [address] [place] [address] Care Team Providers Name Role Phone Keya Gay MD Primary Care Provider Encounter Details Date Type Department Care Team Description 02/19/1998 Office Visit [facility] Chantell Gay MD OBESITY NOS Practice [address] [place] [address] [place] [address] [place], [place] [address] [phone] Social History Tobacco Use Types Packs/Day Years [...] unspecified documented in this encounter Care Teams Housekeeper/Custodian/Laundry Worker Relationship Specialty Start Date End Date Keya Gay MD PCP - General 04/01/1998 04/04/[address] [place] [address] documented as of this encounter
--- OUTSIDE RECORDS SUMMARY | 2022-04-03 07:13 | XMS_ITS | Encounter Summary ---
:1970 Author Organization [employer] Address [address] [place] [address] Care Team Providers Name Role Phone Keya Gay MD Primary Care Provider Encounter Details Date Type Department Care Team Description 11/05/1997 Office Visit [facility] Griselda Monteiro ABDOMINAL [facility]IN [facility] EPIGASTRIC [address] [place] [address] [facility] [address]E [address] [place], [address] Social History Tobacco Use Types Packs/Day Years [...] her the information on resources available through [facility] for weight management. Encouraged the exercising. She will call mental health to look into any marriage counseling services that are available. cc: documented in this encounter Plan of Treatment Not on filedocumented as of this encounter Visit Diagnoses Diagnosis Abdominal pain, epigastric documented in this encounter Care Teams Bureau Chief Relationship Specialty Start Date End Date Keya Gay MD PCP - General 04/01/1998 04/04/[address] [place] [address] documented as of this encounter
--- OUTSIDE RECORDS SUMMARY | 2022-04-03 07:13 | XMS_ITS | Encounter Summary ---
:1970 Author Organization [facility] Address [address] [place] [address] Care Team Providers Name Role Phone Keya Gay MD Primary Care Provider Reason for Visit Reason Comments ARIADNE BENJAMIN MD FEVER Encounter Details Date Type Department Care Team Description 07/10/1998 Telephone Careline Brittney Eldridge, ARIADNE BENJAMIN MD; FEVER [address] [place], [place] [address] [facility] [phone] [facility] [address] Social History Tobacco Use Types Packs/Day Years Used Date Smoking Tobacco: Never Assessed Sex Assigned at Date Recorded Not on file documented as of this encounter Nursing Notes 07/10/1998 11:59 PM 3RD MATE >> CALL RECEIVED. Contact: self #[phone] >> BRITTNEY ELDRIDGE 07/10/1998 07:13 am 28 [...] She want to be seen. TO [facility] Sat 2-20 Quick Note by: CLARISA GUTIERREZ on 07/10/98 at 7:22 am. lm message on machine to cb documented in this encounter Plan of Treatment Not on filedocumented as of this encounter Visit Diagnoses Not on filedocumented in this encounter Care Teams Conveyor Loader Relationship Specialty Start Date End Date Keya Gay MD PCP - General 04/01/1998 04/04/[address] [place] [address] documented as of this encounter
--- OUTSIDE RECORDS SUMMARY | 2022-04-03 07:13 | XMS_ITS | Encounter Summary ---
:1970 Author Organization [employer] Address [address] [place] [address] Care Team Providers Name Role Phone Keya Gay MD Primary Care Provider Reason for Visit Reason Comments PE AND PAP VIA INTERFACE Encounter Details Date Type Department Care Team Description 10/28/1998 [facility] Sydney Mcelroy NTIVE CARE EXAM; Nando Roblero MD MENSTRUAL DISORDER NOS; [address] BACKACHE NOS; [place], [place] [address] [place], [place] [phone] [address] Social History Tobacco Use Types Packs/Day Years Used Date Smoking Tobacco: Never Assessed Sex Assigned at Date Recorded Not on file documented as of this encounter Progress Notes Sydney Mcelroy - 10/28/1998 12:00 AM CDTS: Keara comes into clinic today for her annual physical examination and Pap smear. She states that in general she is doing well, however, she is concerned about the character of her period. She states that she does have severe cramping, nausea and passes clots with her menses. This has been true for most of her life. She has tried oral contraceptive pills in the past that did relieve her symptoms but appeared to make her sick in the morning. Because of that she discontinued taking oral contraceptives. She does not recall the name of them and tells me that it was many years ago. She has had two children both of whom were born by section and she also has had a tubal ligation which did not result in any change in her symptoms. Tells me she has had a pelvic ultrasound and review of that ultrasound dated 04/13/97, revealed a midline uterus that was anteverted with normal outline and texture and the cavity endometrium was thickened but felt to be normal for the associated time of her menses. It was noted that there was a small amount of free fluid in the pelvic cavity of unclear etiology. The ovaries were normal at that time. Keara tells me she is also somewhat concerned about her weight. She is taking an herbal supplement called Thermo-Lift which she tells me is an appetite suppressant. She feels that it does indeed help although she knows that she feels jittery if she takes it on a empty stomach. She has found that if she is careful and takes it with a little bit of food and she does so, she feels that it is helping her to avoid gaining weight and possibly helping lose weight. Keara's last concern is regarding her breast size. She feels her breasts are large and may be causing her difficulty. She has had back pain in the past that is low to mid back in location without radiation. She also notes that her bra straps do dig into her shoulders and she gets a mild rash chronically underneath her breasts. She has considered breast reduction although not pursued it because she felt that if it is done for cosmetic purposes she would probably be charged a cash that she could not afford. She notes that while she had children her breasts were quite a bit larger and since then they have not gone back to the usual pre- size. Keara has no other questions or concerns today. Review of her chart does reveal that her last 3 Pap smears have been normal. Her last one was performed in 1997. Keara tells me that she has always had normal Pap smears. She has not had a mammogram. Denies any family history of cancer. Keara is a nonsmoker and has no history of drug or alcohol abuse. In reviewing her chart it is noted that she did have colposcopy - the date is not noted on the chart, however, it is noted that she had benign findings. O: HEENT: benign. Neck is supple with full range of motion, no lymphadenopathy and thyroid is nonpalpable. Chest is clear to auscultation bilaterally. Cardiac exam reveals a regular rate and rhythm. No murmur, rub or gallop is appreciated. Abdomen is soft, nondistended, nontender. Bowel sounds are present. There is no hepatosplenomegaly. Breasts are symmetric in appearance. Nipples are everted. She has no discreet lumps or lesions. No skin rashes or nipple discharge. There is no adenopathy in either the axillary or clavicular area. Skin exam reveals it to be warm, dry and intact without any rash or lesion. Musculoskeletal is with full range of motion. Strength is intact at 5/5+ throughout. Coordination - both fine and gross motor is normal. Genitourinary exam is not done today. She is advised to have a Pap smear in one years time. A/P: Very pleasant 28 -year-old woman with concerns regarding dysmenorrhea. I did advise her to try another trial of oral contraceptive pills and provided her with a prescription for Alesse. Instructed her to begin them on the Sunday after her period starts, one pill p.o. q.d. as directed. I warned her that she may have spotting on a low dose control pill but that a lower dose pill would likely minimize the side effects. 2. Interested in breast reduction. I stated to Keara that I would call the surgeon or other appropriate person to determine that this is covered. It may be that her breast size is contributing to shoulder and back discomfort. I also suggested other supportive measures such as trying a larger size bra, one that is an underwire to provide firm support and some exercises to strengthen her back and pectoralis muscles. 3. Regarding weight loss - on my exam, although I have not actually calculated it, Keara appears not to be greater than 20% overweight. I did emphasize exercise and diet as opposed to supplements and pills to lose weight. Keara agreed with that plan and stated she would try and increase her exercise. Keara will call the clinic if she has any other questions or concerns. cc: documented in this encounter Plan of Treatment Not on filedocumented as of this encounter Visit Diagnoses Diagnosis Routine general medical examination at [facility] Routine general medical examination at [facility] care facility Unspecified disorder of menstruation and other abnormal bleeding from female genital tract Backache, unspecified Mastodynia documented in this encounter Care Teams Hose Inspector And Patcher Relationship Specialty Start Date End Date Keya Gay MD PCP - General 04/01/1998 04/04/[address] [place] [address] documented as of this encounter
--- OUTSIDE RECORDS SUMMARY | 2022-04-03 07:13 | XMS_ITS | Encounter Summary ---
:1970 Author Organization [facility] Address [address] [place] [address] Care Team Providers Name Role Phone Keya Gay MD Primary Care Provider Encounter Details Date Type Department Care Team Description 06/29/1998 Orders Only Keya Gay MD [address] [place], [place] [address] (Wo rk) Social History Tobacco Use Types Packs/Day Years Used Date Smoking Tobacco: Never Assessed Sex Assigned at Date Recorded Not on file documented as of this encounter Plan of Treatment Not on filedocumented as of this encounter Procedures Procedure Name Priority Date/Time Associated Diagnosis Comme nts HEMOGLOBIN, BLOOD Routine 06/29/1998 10:26 AM Res ults for this MACHINE SCALLOP CUTTER procedure are i n the results section. TSH, SENSITIVE Routine 06/29/1998 10:26 AM Result s for this (WITH REFLEX) MACHINE SCALLOP CUTTER procedure are in the results section. documented in this encounter Results TSH, SENSITIVE (06/29/1998 10:26 AM MACHINE SCALLOP CUTTER) P athologist Signature TSH 0.97 0.30 - 5.00 [facility] uIU/ml Thyroid Meds No [facility] Specimen Anatomical Collection Method Collection Time Receive d Time (Source) Location / / Volume Laterality 06/29/1998 10:26 06/29/1998 AM MACHINE SCALLOP CUTTER 10:27 AM MACHINE SCALLOP CUTTER Keya Gay MD LAB_1 Performing Organization Address City/[facility]/ZIP Code Phon e Number [facility] [phone] [address] (ABNORMAL) HEMOGLOBIN, BLOOD (06/29/1998 10:26 AM MACHINE SCALLOP CUTTER) P athologist Signature Hemoglobin 11.2 (L) 12.0 - [facility] 16.0 g/dl Specimen Anatomical Collection Method Collection Time Receive d Time (Source) Location / / Volume Laterality 06/29/1998 10:26 06/29/1998 AM MACHINE SCALLOP CUTTER 10:27 AM MACHINE SCALLOP CUTTER Keya Gay MD LAB_1 Performing Organization Address [facility] Phon e Number [facility] [phone] [phone] documented in this encounter Visit Diagnoses Not on filedocumented in this encounter Care Teams Android Platform Developer Relationship Specialty Start Date End Date Keya Gay MD PCP - General 04/01/1998 04/04/[address] [place] [address] documented as of this encounter
--- OUTSIDE RECORDS SUMMARY | 2022-04-03 07:13 | XMS_ITS | Encounter Summary ---
:1970 Author Organization [employer] Address [address] [place] [address] Care Team Providers Name Role Phone Marco Schaffer Primary Care Provider Encounter Details Date Type Department Care Team Description 08/12/1997 Notes/Orders Marco Schaffer [facility] [address] [facility], [address] Social History Tobacco Use Types Packs/Day Years Used Date Smoking Tobacco: Never Assessed Sex Assigned at Date Recorded Not on file documented as of this encounter Plan of Treatment Not on filedocumented as of this encounter Procedures Procedure Name Priority Date/Time Associated Diagnosis Comme nts CBC HEME PANEL Waiting 08/12/1997 4:16 PM Results for this BANANA CARRIER procedure are i n the results section . documented in this encounter Results (ABNORMAL) CBC HEME PANEL (08/12/1997 4:16 PM BANANA CARRIER) P athologist Signature WBC 7.1 4.2 - [...] Volume Laterality 08/12/1997 4:16 PM 8 4:17 BANANA CARRIER PM BANANA CARRIER Marco Schaffer LAB_1 Performing Organization Address City/State/ZIP Code Phon e Number [facility] [phone] [facility] [address] [phone] documented in this encounter Visit Diagnoses Not on filedocumented in this encounter Care Teams Hired Hand Relationship Specialty Start Date End Date Marco Schaffer PCP - General 09/06/1993 03/31/1998 [facility] [address] [facility], [id number] documented as of this encounter
--- OUTSIDE RECORDS SUMMARY | 2022-04-03 07:13 | XMS_ITS | Encounter Summary ---
:1970 Author Organization [employer] Address [address] [place] [address] Care Team Providers Name Role Phone Chirag Metzger PA-C Primary Care Provider Encounter Details Date Type Department Care Team Description 11/05/1997 Orders Only Marco Schaffer [facility] [address] [facility], [address] Social History Tobacco Use Types Packs/Day Years Used Date Smoking Tobacco: Never Assessed Sex Assigned at Date Recorded Not on file documented as of this encounter Plan of Treatment Not on filedocumented as of this encounter Visit Diagnoses Not on filedocumented in this encounter Care Teams Cost Recorder Relationship Specialty Start Date End Date Chirag Metzger PA-C PCP - General Physician Tax Economist 07/06/16 [address] [place] [address] documented as of this encounter
--- OUTSIDE RECORDS SUMMARY | 2022-04-03 07:13 | XMS_ITS | Encounter Summary ---
:1970 Author Organization [employer] Address [address] [place] [address] Care Team Providers Name Role Phone Chirag [...] on filedocumented in this encounter Care Teams Laser Technician Relationship Specialty Start Date End Date Chirag Metzger PA-C PCP - General Physician Instructor Knitting 07/06/16 [address] [place] [id number] documented as of this encounter
--- OUTSIDE RECORDS SUMMARY | 2022-04-03 07:13 | XMS_ITS | Encounter Summary ---
:1970 Author Organization [employer] Address [address] [place] [address] Care Team Providers Name Role Phone Keya Gay MD Primary Care Provider Encounter Details Date Type Department Care Team Description 07/15/1998 Office Visit [facility] Nilam Keane, KARLOSI TY; Practice RDN, LD COUNSELING, DIETARY [address] [phone] [facility] Social History Tobacco Use Types Packs/Day [...] log, and the phone number to the [facility] for [facility] Health phone [facility]. A/P: In reviewing Keara's [...] about the Balanced Ways program offered at [facility] and she is willing to register for this. Encouraged her to follow up with the [facility] phone line boilermaker and health educators And to get more information on low fat cooking from our [facility] library. Keara seemed to have a good understanding and appreciate the information covered today. cc: MD Nilam Hermosillo. SANJIV Keane,LD,CNSD GER [employer]MENT [employer]ING documented in this encounter Plan of Treatment Not on filedocumented as of this encounter Visit Diagnoses Diagnosis Obesity Overweight and obesity Dietary surveillance and counseling documented in this encounter Care Teams Automobile Body Repair Supervisor Relationship Specialty Start Date End Date Keya Gay MD PCP - General 04/01/1998 04/04/[address] [place] [address] documented as of this encounter
--- OUTSIDE RECORDS SUMMARY | 2022-04-03 07:13 | XMS_ITS | Encounter Summary ---
:1970 Author Organization [facility] Address [address] [place] [address] Care Team Providers Name Role Phone Kadiechristie Marco Primary Care Provider Encounter Details Date Type Department Care Team Description 02/19/1998 Orders Only Keya Gay MD [address] [place], [place] [address] (Wo rk) Social History [...] Keya Gay MD LAB_1 Performing Organization Address City/[facility]/ZIP Code Phon e Number [facility] [employer] [phone] [facility] [address] [phone] (ABNORMAL) CBC HEME PANEL (02/19/1998 2:26 PM CDT) P athologist Signature WBC 6.7 4.2 - 10.0 [facility] k/ul RBC 4.01 3.8 - 5.4 [facility] M/ul Hemoglobin 11.8 (L) 12 - 16 [facility] g/dl HCT 36.5 35 - 46 % [facility] MCV 91 80 - 98 fl [facility] MCH 29.4 27 - 34 pg [facility] MCHC 32.3 32 - 36 % [facility] Platelets 254 150 - 450 [facility] k/ul Specimen Anatomical Collection Method Collection Time Receive d Time (Source) Location / / Volume Laterality 02/19/1998 2:26 PM 8 2:27 CDT PM CDT Keya Gay MD LAB_1 Performing Organization Address [facility]/ZIP Code Phon e Number [facility] [employer] [phone] [facility] [address] [place] [phone] ACCUCHECK GLUCOSE RANDOM (WAIT (02/19/1998 2:26 PM CDT) Component Value Ref Test Analysis [facility] Range Method Time Signature Glucose, bG 79 70 - 140 [facility] Strip mg/dl Glucose, bG Semi-quantitative result (bG) may be [facility] Strip 5-10% lower than quantitative result. Hours Fasting 2 hours [facility] Specimen Anatomical Collection Method Collection Time Receive d Time (Source) Location / / Volume Laterality 02/19/1998 2:26 PM 8 2:27 CDT PM CDT Keya Gay MD LAB_1 Performing Organization Address City/[facility]/ZIP Code Phon e Number [facility] [employer] [phone] [place] [address] documented in this encounter Visit Diagnoses Not on filedocumented in this encounter Care Teams Business Transformation Consultant Relationship Specialty Start Date End Date Marco Schaffer PCP - General 09/06/1993 03/31/1998 [facility] [address] [facility], [id number] documented as of this encounter
--- OUTSIDE RECORDS SUMMARY | 2022-04-03 07:13 | XMS_ITS | Encounter Summary ---
:1970 Author Organization [facility] Address [address] [place] [address] Care Team Providers Name Role Phone Keya Gay MD Primary Care Provider Reason for Visit Reason Comments Medication Request Encounter Details Date Type Department Care Team Description 11/19/1998 Telephone Careline Rona Artegaa Medication Request [address] Cecile Taylor [place], [place] [address] [place] [address] [place] [address] Social History Tobacco Use Types Packs/Day Years Used Date Smoking Tobacco: Never Assessed Sex Assigned at Date Recorded Not on file documented as of this encounter Nursing Notes 11/19/1998 11:59 PM CDT >> LILLI ARTEAGA 11/19/1998 10:05 pm another month's supply given but pharmancy stated need to override the old order in order for it to be covered. Pharmancy number [phone] for HP given to radha pharmicist to call tomorrow. Or pt can pay and bill HP when home. Attempted to contact pt . message left on [employer] machine. >> CALL RECEIVED. Contact: >> LILLI ARTEAGA 11/19/1998 07:51 pm radha [phone] at [place] need an override to dispense OCP wants a 1mo supply had left Pills a 2 mo supply at home before travel. Is on OCP to decrease menses cramping. Would like to start this cycle. Plan: Dr Lenore ulrich. documented in this encounter Plan of Treatment Not on filedocumented as of this encounter Visit Diagnoses Not on filedocumented in this encounter Care Teams Implementation Lead Relationship Specialty Start Date End Date Keya Gay MD PCP - General 04/01/1998 04/04/00 [address] [place] [address] documented as of this encounter
--- OUTSIDE RECORDS SUMMARY | 2022-04-03 07:13 | XMS_ITS | Encounter Summary ---
:1970 Author Organization [facility] Address [address] [place] [address] Care Team Providers Name Role Phone Keya Gay MD Primary Care Provider Encounter Details Date Type Department Care Team Description 08/12/1997 Office Visit Marco Schaffer MOTION SICKNESS; [facility] [place] [address] [place], [address] Social History Tobacco Use Types Packs/Day Years Used Date Smoking Tobacco: Never Assessed Sex Assigned at Date Recorded Not on file documented as of this encounter Progress Notes OliviaoliviaMarco soriano - 08/12/1997 12:00 AM CSTS: She is going to be going on a cruise to the [facility]. She has to fly from here to [place], and the only other time she has [...] unspecified documented in this encounter Care Teams Brakeshoe Repairer Relationship Specialty Start Date End Date Keya Gay MD PCP - General 04/01/1998 04/04/[address] [place] [place] [address] documented as of this encounter
--- OUTSIDE RECORDS SUMMARY | 2022-04-03 07:13 | XMS_ITS | Encounter Summary ---
:1970 Author Organization [facility] Address [address] [place] [address] Care Team Providers Name Role Phone Keya Gay MD Primary Care Provider Encounter Details Date Type Department Care Team Description 05/27/1997 Office Visit Carlos Penny MD [facility] [id number] [place] [address], [address] Social History Tobacco Use Types Packs/Day Years Used Date Smoking Tobacco: Never Assessed Sex Assigned at Date Recorded Not on file documented as of this encounter Plan of Treatment Not on filedocumented as of this encounter Visit Diagnoses Diagnosis Dysmenorrhea documented in this encounter Care Teams Area Mechanic Relationship Specialty Start Date End Date Keya Gay MD PCP - General 04/01/1998 04/04/[address] [place] [address] documented as of this encounter
--- OUTSIDE RECORDS SUMMARY | 2022-04-03 07:13 | XMS_ITS | Encounter Summary ---
:1970 Author Organization [facility] Address [address] [place] [address] Care Team Providers Name Role Phone Chirag Metzger PA-C Primary Care Provider Encounter Details Date Type Department Care Team Description 08/12/1997 Orders Only Marco Schaffer [facility] [address] [facility], [address] Social History Tobacco Use Types Packs/Day Years Used Date Smoking Tobacco: Never Assessed Sex Assigned at Date Recorded Not on file documented as of this encounter Plan of Treatment Not on filedocumented as of this encounter Visit Diagnoses Not on filedocumented in this encounter Care Teams Animal Attendant Relationship Specialty Start Date End Date Chirag Metzger PA-C PCP - General Physician Machine Specialist 07/06/16 [address] [place] [address] documented as of this encounter
--- OUTSIDE RECORDS SUMMARY | 2022-04-03 07:14 | XMS_ITS | Encounter Summary ---
:1970 Author Organization [facility] Address [address] [place] [address] Care Team Providers Name Role Phone Chirag Metzger PA-C Primary Care Provider Encounter Details Date Type Department Care Team Description 10/01/1995 [place] [address] [place], [place] [phone] (Wo rk) Social History Tobacco Use Types Packs/Day Years Used Date Smoking Tobacco: Never Assessed Sex Assigned at Date Recorded Not on file documented as of this encounter Plan of Treatment Not on filedocumented as of this encounter Visit Diagnoses Not on filedocumented in this encounter Care Teams Lead Driver Relationship Specialty Start Date End Date Chirag Metzger PA-C PCP - General Physician Marine Animal Trainer 07/06/[address] [place] [address] documented as of this encounter
--- OUTSIDE RECORDS SUMMARY | 2022-04-03 07:14 | XMS_ITS | Encounter Summary ---
:1970 Author Organization [facility] Address [address] [place] [address] Care Team Providers Name Role Phone Kadiechristie Marco Primary Care Provider Reason for Visit Reason Comments [facility] Adult 12' Berto to be see n in peds this priya also Encounter Details Date Type Department Care Team Description 03/04/1997 Telephone Careline Rachelle Brown URI ([facility] Adult 12' [address] RN to be seen in peds [place], [place] [address] CARELINE priya also) [phone] [place] [address] Social History Tobacco Use Types Packs/Day Years Used Date Smoking Tobacco: Never Assessed Sex Assigned at Date Recorded Not on file documented as of this encounter Nursing Notes 03/04/1997 11:59 PM CDT >> LONI AMAYA 03/04/97 05:17 pm coming with daughter at [address] >> CALL RECEIVED. Contact: [phone] >> RACHELLE BROWN 03/04/97 05:13 pm Cold, st, ear ache, sl dry cough, stomach ache, lower abd cramping off and on x 2 d. Feels warm, achy all over, radha arms and legs. NKA On BCP Healthy generally documented in this encounter Plan of Treatment Not on filedocumented as of this encounter Visit Diagnoses Not on filedocumented in this encounter Care Teams Phlebotomy Specialist Relationship Specialty Start Date End Date Marco Schaffer PCP - General 09/06/1993 03/31/1998 [facility] [address] [facility], [address] documented as of this encounter
--- OUTSIDE RECORDS SUMMARY | 2022-04-03 07:14 | XMS_ITS | Encounter Summary ---
:1970 Author Organization [facility] Address [address] [place] [address] Care Team Providers Name Role Phone Chirag [...] on filedocumented in this encounter Care Teams Lav Crewman Relationship Specialty Start Date End Date Chirag Metzger PA-C PCP - General Physician Enforcement Safety Officer 07/06/16 [address] [place] [address] documented as of this encounter
--- OUTSIDE RECORDS SUMMARY | 2022-04-03 07:14 | XMS_ITS | Encounter Summary ---
:1970 Author Organization [facility] Address [address] [place] [address] Care Team Providers Name Role Phone Keya Gay MD Primary Care Provider Encounter Details Date Type Department Care Team Description 10/25/1995 Office Visit Francine Sears HYPERMETROPIA; [facility] NOS [address] [place] [address] Social History Tobacco Use Types Packs/Day Years Used Date Smoking Tobacco: Never Assessed Sex Assigned at Date Recorded Not on file documented as of this encounter Plan of Treatment Not on filedocumented as of this encounter Visit Diagnoses Diagnosis Hypermetropia Astigmatism, unspecified documented in this encounter Care Teams Race Relations Professor Relationship Specialty Start Date End Date Keya Gay MD PCP - General 04/01/1998 04/04/[address] [place] [address] documented as of this encounter
--- OUTSIDE RECORDS SUMMARY | 2022-04-03 07:14 | XMS_ITS | Encounter Summary ---
:1970 Author Organization [facility] Address [address] [place] [address] Care Team Providers Name Role Phone Chirag Metzger PA-C Primary Care Provider Encounter Details Date Type Department Care Team Description 08/29/1994 Orders Only Sahil Plunkett, DDS [facility] [address] [place], [place] [address] (Wo rk) Social History Tobacco Use Types Packs/Day Years Used Date Smoking Tobacco: Never Assessed Sex Assigned at Date Recorded Not on file documented as of this encounter Plan of Treatment Not on filedocumented as of this encounter Visit Diagnoses Not on filedocumented in this encounter Care Teams Health Teacher Relationship Specialty Start Date End Date Chirag Metgzer PA-C PCP - General Physician Clinical Registered Nurse 07/06/[address] [place] [address] [place] [address] documented as of this encounter
--- OUTSIDE RECORDS SUMMARY | 2022-04-03 07:14 | XMS_ITS | Encounter Summary ---
:1970 Author Organization [employer] Address [address] [place] [address] Care Team Providers Name Role Phone Keya Gay MD Primary Care Provider Encounter Details Date Type Department Care Team Description 08/11/1994 Office Visit Marco Schaffer Routine general medical examination at [facility]; [facility] Dysuria [address] [facility], [address] Social History Tobacco Use Types [...] Diagnoses Diagnosis Routine general medical examination at [facility] Routine general medical examination at [facility] facility Dysuria documented in this encounter Care Teams Cook Supervisor Relationship Specialty Start Date End Date Keya Gay MD PCP - General 04/01/1998 04/04/[address] [place] [address] documented as of this encounter
--- OUTSIDE RECORDS SUMMARY | 2022-04-03 07:14 | XMS_ITS | Encounter Summary ---
:1970 Author Organization [facility] Address [address] [place] [address] Care Team Providers Name Role Phone Chirag Metzger PA-C Primary Care Provider Encounter Details Date Type Department Care Team Description 04/20/1997 Orders Only Morenita Fink MD [address] [place], [place] [address] (Wo rk) Social History Tobacco Use Types Packs/Day Years Used Date Smoking Tobacco: Never Assessed Sex Assigned at Date Recorded Not on file documented as of this encounter Plan of Treatment Not on filedocumented as of this encounter Visit Diagnoses Not on filedocumented in this encounter Care Teams Pantograph Machine Set Up Operator Relationship Specialty Start Date End Date Chirag Metzger PA-C PCP - General Physician Pressure Vessel Inspector 07/06/16 [address] [place] [address] documented as of this encounter
--- OUTSIDE RECORDS SUMMARY | 2022-04-03 07:14 | XMS_ITS | Encounter Summary ---
:1970 Author Organization [facility] Address [address] [place] [address] Care Team Providers Name Role Phone Marco Schaffer Primary Care Provider Encounter Details Date Type Department Care Team Description 05/04/1997 Notes/Orders Marco Schaffer [facility] [address] [facility], [address] Social History Tobacco Use Types Packs/Day Years Used Date Smoking Tobacco: Never Assessed Sex Assigned at Date Recorded Not on file documented as of this encounter Plan of Treatment Not on filedocumented as of this encounter Procedures Procedure Name Priority Date/Time Associated Diagnosis Comme nts SILVIA PREP Waiting 05/04/1997 2:50 PM Results f or this MANAGER CATEGORY procedure are i n the results section . CBC HEME PANEL Waiting 05/04/1997 2:50 PM Results for this MANAGER CATEGORY procedure are i n the results section . documented in this encounter Results (ABNORMAL) CBC HEME PANEL (05/04/1997 2:50 PM MANAGER CATEGORY) P athologist Signature WBC 7.8 4.2 - 10.0 [facility] k/ul RBC 4.08 3.8 - 5.4 [facility] M/ul Hemoglobin 11.8 (L) 12 - 16 [facility] g/dl HCT 36.3 35 - 46 % [facility] MCV 89 80 - 98 fl [facility] MCH 28.9 27 - 34 pg [facility] 32.5 32 - 36 % [facility] Platelets 327 150 - 450 [facility] k/ul Specimen Anatomical Collection Method Collection Time Receive d Time (Source) Location / / Volume Laterality 05/04/1997 2:50 PM 199 7 2:51 MANAGER CATEGORY PM MANAGER CATEGORY Marco Schaffer LAB_1 Performing Organization Address [facility] Phon e Number [facility] [phone] [facility] [address] [phone] SILVIA PREP (05/04/1997 2:50 PM MANAGER CATEGORY) athologist Signature SILVIA Positive [facility] Source Arm [facility] Specimen Anatomical Collection Method Collection Time Receive d Time (Source) Location / / Volume Laterality 05/04/1997 2:50 PM 199 7 2:51 MANAGER CATEGORY PM MANAGER CATEGORY Marco Schaffer LAB_1 Performing Organization Address [facility] Phon e Number [facility] [employer] [phone] [facility] [address] [place] [phone] documented in this encounter Visit Diagnoses Not on filedocumented in this encounter Care Teams Health Promotion Coordinator Relationship Specialty Start Date End Date Marco Schaffer PCP - General 09/06/1993 03/31/1998 [facility] [address] [facility], [address] documented as of this encounter
--- OUTSIDE RECORDS SUMMARY | 2022-04-03 07:14 | XMS_ITS | Encounter Summary ---
:1970 Author Organization [employer] Address [address] [place] [address] Care Team Providers Name Role Phone Keya [...] d documented in this encounter Care Teams Boat Carpenter Relationship Specialty Start Date End Date Keya Gay MD PCP - General 04/01/1998 04/04/[address] [place] [place] [address] documented as of this encounter
--- OUTSIDE RECORDS SUMMARY | 2022-04-03 07:14 | XMS_ITS | Encounter Summary ---
:1970 Author Organization [employer] Address [address] [place] [address] Care Team Providers Name Role Phone Keya Gay MD Primary Care Provider Encounter Details Date Type Department Care Team Description 04/13/1997 Office Visit [facility] Justin Hilario MD FEM CARLYN GENITAL SYMPTOMS NEC; and Gynecology IRREGULAR MENSTRUATION [address] [place], [place] [address] Social History Tobacco Use Types Packs/Day Years Used Date Smoking Tobacco: Never Assessed Sex Assigned at Date Recorded Not on file documented as of this encounter Progress Notes Justin Hilario - 04/13/1997 12:00 AM CSTTAPE NO. [id number] REFERRING PROVIDER: Dr. Kb Penny, [facility] INDICATION FOR PELVIC ULTRASOUND: Abdominal and vaginal [...] back to Dr. Kb Penny at [facility] for further management. cc: Kb Penny MD NG INSTALLER documented in this encounter Plan of Treatment Not on filedocumented as of this encounter Visit Diagnoses Diagnosis Other specified symptom associated with female genital organs Irregular menstrual cycle documented in this encounter Care Teams Senior Front End Web Developer Relationship Specialty Start Date End Date Keya Gay MD PCP - General 04/01/1998 04/04/[address] [place] [address] documented as of this encounter
--- OUTSIDE RECORDS SUMMARY | 2022-04-03 07:14 | XMS_ITS | Encounter Summary ---
:1970 Author Organization [employer] Address [address] [place] [address] Care Team Providers Name Role Phone Keya Gay MD Primary Care Provider Encounter Details Date Type Department Care Team Description 05/04/1997 Office Visit Marco Schaffer PREVENTIVE CARE EXAM; [facility] MENSTRUAL DISORDER NOS; [address] [facility] DERMATOPHYTOSIS SITE NOS [place], [address] Social History Tobacco Use Types [...] menorrhagia that is being followed by Dr. Penny. Sensation of phlegm in her throat with [...] Diagnoses Diagnosis Routine general medical examination at [facility] facility Routine general medical examination at a [facility] care facility Unspecified disorder of menstruation and other abnormal bleeding from female genital tract Dermatophytosis of unspecified site documented in this encounter Care Teams Trim Mounter Relationship Specialty Start Date End Date Keya Gay MD PCP - General 04/01/1998 04/04/[address] [place] [address] documented as of this encounter
--- OUTSIDE RECORDS SUMMARY | 2022-04-03 07:14 | XMS_ITS | Encounter Summary ---
:1970 Author Organization [facility] Address [address] [place] [address] Care Team Providers Name Role Phone Chirag Metzger PA-C Primary Care Provider Encounter Details Date Type Department Care Team Description 05/18/1997 Orders Only Isrrael Arias MD [address] [place], [place] [address] (Wo rk) Social History Tobacco Use Types Packs/Day Years Used Date Smoking Tobacco: Never Assessed Sex Assigned at Date Recorded Not on file documented as of this encounter Plan of Treatment Not on filedocumented as of this encounter Visit Diagnoses Not on filedocumented in this encounter Care Teams Home Therapy Clinician Relationship Specialty Start Date End Date Chirag Metzger PA-C PCP - General Physician Manager Systems 07/06/[address] [place] [address] [address] documented as of this encounter
--- OUTSIDE RECORDS SUMMARY | 2022-04-03 07:14 | XMS_ITS | Encounter Summary ---
:1970 Author Organization [employer] Address [address] [place] [address] Care Team Providers Name Role Phone Keya Gay MD Primary Care Provider Encounter Details Date Type Department Care Team Description 12/14/1995 Office Visit Julianna De Leon MD ACUTE PHARYNGITIS(SORE [address] [place] THROAT) [address] [place], [place] [address] (Wo rk) Social History [...] pharyngitis documented in this encounter Care Teams Nutrition Manager Relationship Specialty Start Date End Date Keya Gay MD PCP - General 04/01/1998 04/04/[address] [place] [address] documented as of this encounter
--- OUTSIDE RECORDS SUMMARY | 2022-04-03 07:14 | XMS_ITS | Encounter Summary ---
:1970 Author Organization [employer] Address [address] [place] [address] Care Team Providers Name Role Phone Keya Gay MD Primary Care Provider Encounter Details Date Type Department Care Team Description 10/01/1995 Office Visit Dayanara Willoughby MD ACUTE URI NOS [address] [place] [address] (Wo rk) Social History Tobacco Use Types [...] site documented in this encounter Care Teams Small Arms Repairer Relationship Specialty Start Date End Date Keya Gay MD PCP - General 04/01/1998 04/04/00 [address] [address] documented as of this encounter
--- OUTSIDE RECORDS SUMMARY | 2022-04-03 07:14 | XMS_ITS | Encounter Summary ---
:1970 Author Organization [employer] Address [address] [place] [address] Care Team Providers Name Role Phone Keya Gay MD Primary Care Provider Encounter Details Date Type Department Care Team Description 03/04/1997 Office Visit [facility] Fernando Thompson P HARYNGITIS(ARIADNE Valentine MD THROAT) [address] Terri Arrington [place] [address] [address] [place] [address] [place] [address] Social History Tobacco Use Types [...] pharyngitis documented in this encounter Care Teams Supervisor Fur Dressing Relationship Specialty Start Date End Date Keya Gay MD PCP - General 04/01/1998 04/04/[address] [place] [address] documented as of this encounter
--- OUTSIDE RECORDS SUMMARY | 2022-04-03 07:14 | XMS_ITS | Encounter Summary ---
:1970 Author Organization [employer] [facility] Address [address] [place] [address] Care Team Providers Name Role Phone Chirag Metzger PA-C Primary Care Provider Encounter Details Date Type Department Care Team Description 12/14/1995 Orders Only Julianna De Leon MD [address] [place], [place] [address] (Wo rk) Social History Tobacco Use Types Packs/Day Years Used Date Smoking Tobacco: Never Assessed Sex Assigned at Date Recorded Not on file documented as of this encounter Plan of Treatment Not on filedocumented as of this encounter Visit Diagnoses Not on filedocumented in this encounter Care Teams Cleaner Laboratory Equipment Relationship Specialty Start Date End Date Chirag Metzger PA-C PCP - General Physician Production Support Supervisor 07/06/[address] [place] [address] documented as of this encounter
--- OUTSIDE RECORDS SUMMARY | 2022-04-03 07:14 | XMS_ITS | Encounter Summary ---
:1970 Author Organization [employer] Address [address] [place] [address] Care Team Providers Name Role Phone Keya Gay MD Primary Care Provider Encounter Details Date Type Department Care Team Description 09/06/1993 Office Visit Art Haynes MD Backache, unspecified [address] [place], [place] [address] (Wo rk) Social History Tobacco Use [...] unspecified documented in this encounter Care Teams Security Control Center Operator Relationship Specialty Start Date End Date Keya Gay MD PCP - General 04/01/1998 04/04/[address] [place] [address] documented as of this encounter
--- OUTSIDE RECORDS SUMMARY | 2022-04-03 07:14 | XMS_ITS | Encounter Summary ---
:1970 Author Organization [facility] Address [address] [place] [address] Care Team Providers Name Role Phone Chirag [...] on filedocumented in this encounter Care Teams Color Straining Bag Washer Relationship Specialty Start Date End Date Chirag Metzger PA-C PCP - General Physician Control Room Technician 07/06/[address] [id number] documented as of this encounter
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
--- OUTSIDE RECORDS SUMMARY | 2022-04-03 07:14 | XMS_ITS | Encounter Summary ---
:1970 Author Organization [facility] Address [address] [place] [address] Care Team Providers Name Role Phone KadiechristieMarco Primary Care Provider Encounter Details Date Type Department Care Team Description 03/04/1997 Notes/Orders Epic, [place] [address] Social History Tobacco Use Types Packs/Day Years [...] STREP SCREEN (WAITING) (03/04/1997 6:56 PM CDT) [facility] Method Time Signature Patient Home [id number] [facility] Phone # Patient Work None [facility] Phone # Grp A Rapid Negative [facility] Screen Grp A Culture Negative [facility] Final Specimen Anatomical Collection Method Collection Time Receive d Time (Source) Location / / Volume Laterality 03/04/1997 6:56 PM 7 6:57 CD[address] [facility] [facility] 03/04/1997 6:56 PM CDT Ordered by URGENT CARE Internal Processing Epic LAB_1 Performing Organization Address City/State/ZIP Code Phon e Number [facility] [phone] [facility] [address] [id number] documented in this encounter Visit Diagnoses Not on filedocumented in this encounter Care Teams Rolling Mill Plugger Relationship Specialty Start Date End Date Marco Schaffer PCP - General 09/06/1993 03/31/1998 [facility] [address] [facility], [id number] documented as of this encounter
--- OUTSIDE RECORDS SUMMARY | 2022-04-03 07:14 | XMS_ITS | Encounter Summary ---
:1970 Author Organization [employer] Address [address] [place] [address] Care Team Providers Name Role Phone Keya Gay MD Primary Care Provider Encounter Details Date Type Department Care Team Description 04/21/1997 Office Visit Ivania Younger [facility] [address] [facility] , [address] Social History Tobacco [...] have supportive family and friends through the mormonism, she does need to plan out future [...] on filedocumented in this encounter Care Teams Processor Inspector Relationship Specialty Start Date End Date Keya Gay MD PCP - General 04/01/1998 04/04/00 [address] [place] [address] documented as of this encounter
--- OUTSIDE RECORDS SUMMARY | 2022-04-03 07:14 | XMS_ITS | Encounter Summary ---
:1970 [facility] Address [address] [place] [address] Care Team Providers Name Role Phone Chirag Metzger PA-C Primary Care Provider Encounter Details Date Type Department Care Team Description 10/22/1995 Orders Only Andrew Pappas MD [address] [place], [place] [phone] (Wo rk) Social History Tobacco Use Types Packs/Day Years Used Date Smoking Tobacco: Never Assessed Sex Assigned at Date Recorded Not on file documented as of this encounter Plan of Treatment Not on filedocumented as of this encounter Visit Diagnoses Not on filedocumented in this encounter Care Teams Stull Hewer Relationship Specialty Start Date End Date Chirag Metzger PA-C PCP - General Physician Medical Officer 07/06/[address] [place] [address] documented as of this encounter
--- OUTSIDE RECORDS SUMMARY | 2022-04-03 07:14 | XMS_ITS | Encounter Summary ---
:1970 Author [facility] Address [address] [place] [address] Care Team Providers Name Role Phone Chirag Metzger PA-C Primary Care Provider Encounter Details Date Type Department Care Team Description 03/25/1997 Orders Only Carlos Penny MD [facility] [id number] [place] [address], [address] Social History Tobacco Use Types Packs/Day Years Used Date Smoking Tobacco: Never Assessed Sex Assigned at Date Recorded Not on file documented as of this encounter Plan of Treatment Not on filedocumented as of this encounter Visit Diagnoses Not on filedocumented in this encounter Care Teams Associate Programmer Relationship Specialty Start Date End Date Chirag Metzger PA-C PCP - General Physician Shore Hand Dredge Or Barge 07/06/[address] [address] documented as of this encounter
--- OUTSIDE RECORDS SUMMARY | 2022-04-03 07:14 | XMS_ITS | Encounter Summary ---
:1970 Author Organization [employer] Address [address] [place] [address] Care Team Providers Name Role Phone Keya Gay MD Primary Care Provider Encounter Details Date Type Department Care Team Description 03/25/1997 Office Visit Carlos Penny MD [facility] [id number] [place] [address], [address] Social History Tobacco Use Types Packs/Day Years Used Date Smoking Tobacco: Never Assessed Sex Assigned at Date Recorded Not on file documented as of this encounter Plan of Treatment Not on filedocumented as of this encounter Visit Diagnoses Diagnosis Dysmenorrhea documented in this encounter Care Teams Terrazzo Polisher Relationship Specialty Start Date End Date Keya Gay MD PCP - General 04/01/1998 04/04/[address] [place] [address] documented as of this encounter
--- OUTSIDE RECORDS SUMMARY | 2022-04-03 07:14 | XMS_ITS | Encounter Summary ---
:1970 Author Organization [facility] Address [address] [place] [address] Care Team Providers Name Role Phone Keya Gay MD Primary Care Provider Encounter Details Date Type Department Care Team Description 02/29/1996 Office Visit KoltonMarco trujillo ACUTE URI [facility] [address] [facility], [address] Social History Tobacco Use Types Packs/Day Years Used Date Smoking Tobacco: Never Assessed Sex Assigned at Date Recorded Not on file documented as of this encounter Progress Notes Marco Schaffer - 02/29/1996 12:00 AM CDTS. For the last few days she has had a little bit of a scratchy throat and when she woke up this morning she had generalized body aches, ears hurt, throat was sore. She feels fatigued and warm without any real fever. Does have a cough that is productive of some slight mucus. Nose is congested. There has been no wheezing or SOB. Appetite is decrease. No nausea or vomiting. O. Pt. appears mildly ill. She is afebrile. B.P. 116/68, Pulse is 74. TM's are nonerythematous, translucent, nares with some audible congestion. Oral Pharynx is slightly erythematous, no tonsillar enlargement, or exudate. Neck is supple without adenopathy. Lungs are clear. A. URI With Is Probably Viral. P. Symptomatic treatment with decognestants, Tylenol, Advil. Rest and FLuids. Work release for the next few days was written. cc: documented in this encounter Plan of Treatment Not on filedocumented as of this encounter Visit Diagnoses Diagnosis Acute upper respiratory infections of un specified site documented in this encounter Care Teams Section Weaver Relationship Specialty Start Date End Date Keya Gay MD PCP - General 04/01/1998 04/04/00 [address] [address] documented as of this encounter
--- OUTSIDE RECORDS SUMMARY | 2022-04-03 07:14 | XMS_ITS | Encounter Summary ---
:1970 Author Organization [employer] Address [address] [place] [address] Care Team Providers Name Role Phone Keya Gay MD Primary Care Provider Encounter Details Date Type Department Care Team Description 10/12/1995 Office Visit Keya Gay MD DYSMENORRHEA [address] [place], [place] [address] (Wo rk) Social History [...] Dysmenorrhea documented in this encounter Care Teams Medicine Technologist Relationship Specialty Start Date End Date Keya Gay MD PCP - General 04/01/1998 04/04/[address] [place] [address] documented as of this encounter
--- OUTSIDE RECORDS SUMMARY | 2022-04-03 07:14 | XMS_ITS | Encounter Summary ---
:1970 Author Organization [facility] [employer] Address [address] [place] [address] Care Team Providers Name Role Phone Keya Gay MD Primary Care Provider Encounter Details Date Type Department Care Team Description 05/04/1997 Office Visit Ania Hanson, RN [address] [place] [place] [address] Social History Tobacco Use Types Packs/Day Years Used Date Smoking Tobacco: Never Assessed Sex Assigned at Date Recorded Not on file documented as of this encounter Progress Notes Ania Hanson - 05/04/1997 12:00 AM CSTPt. no show. I did call her at [phone] and the line was busy X 2. cc: Ania Hanson RNC documented in this encounter Plan of Treatment Not on filedocumented as of this encounter Visit Diagnoses Not on filedocumented in this encounter Care Teams Clinical Pharmacy Coordinator Relationship Specialty Start Date End Date Keya Gay MD PCP - General 04/01/1998 04/04/[address] [place] [address] documented as of this encounter
--- NOTE | 2022-04-03 07:15 | MR_ITS ---
[facility] [address] [facility] [address] Phone:?[phone] Fax:?[phone] Referring Physician Information: Benito Zuluaga [address] [facility] [address] Phone:?[phone] Fax:?[phone] Patient:?Keara Ward D.O.B:?1970 Sex:?Female Phone:?[phone] [facility] MRN:?[id number] Exam Date:?04/03/2022 ? EXAM: MR LUMBAR SPINE WITHOUT CONTRAST 1.5T CLINICAL INFORMATION: Low back pain with radiculopathy radiating to left side. CORRELATIVE IMAGES: MRI of 02/18/2020 TECHNICAL INFORMATION: T1, T2 and STIR sagittal through the lumbar spine with T1 coronal and T1/T2 axial at selected levels. CONTRAST:?None. SEDATION: None. INTERPRETATION:?Segmentation and Alignment:?No segmentation anomaly evident. Lordotic alignment of lumbar spine. Sacrum and Sacroiliac joints:?Limited visualized sacrum and sacroiliac joints demonstrate no significant pathology. Conus/distal cord:?No gross lower spinal cord signal pathology evident. No intradural mass or arachnoidal adhesions. Conus terminates at T12-L1. Osseous and paraspinous structures:?Effusions in the facet joints at L3-L4 through L5-S1 bilaterally, with surrounding edematous signal change consistent with active L4-5 inflammation. T12-L1 through L5-S1: No central canal or foraminal narrowing. Lower thoracic: Lower thoracic spondylosis without cord impingement. CONCLUSION: 1. No central canal or foraminal narrowing. 2. Facet effusion/active inflammation bilateral L4-5. Correlate for facet mediated pain. Note: L4-5 facet inflammation new when compared to prior MRI of 02/17/2019. [facility] Electronically signed on 04/04/2022 4:07:00 PM by Herson Suarez M.D. Overread Physician: Efrain Spann M.D.
== END 2022-04-03 07:03 | disposition home or self-care (01) ==
LOC: MRI 07:03
PROVIDERS: PCP Physician Assistant Medical; Visit Provider Physician Assistant Medical
DX: M54.50 Low back pain, unspecified (principal)
CPT/HCPCS: 72148

== ENCOUNTER 2022-09-01 13:07 | Outpatient (CLI) | payer OTHER, SELFPAY ==
--- OUTSIDE RECORDS SUMMARY | 2022-09-02 08:08 | XMS_ITS | Continuity of Care Document ---
Author Name Unknown Organization [facility] kuldip Address [address] [place] [address] Phone Care Team Providers Care Social Studies Teacher Name Role Phone Will MD MARQUEZ, Vlad Unavailable Unavailabl e Allergies, Adverse Reactions, Alerts Substance Reaction Status Criticality No Known Allergies Active No Inform ation Medications Medication Instructions Dosage Effective Dates (start - stop) Status Comments Valium 5 mg tablet take 1 tablet daily as needed - Active oxycodone 5 mg tablet take 1 tablet by o ral route every 4 - 6 hours as needed 5 MG - Active tramadol 50 mg tablet take 1 tablet by o ral route every 8 hours as needed 50 MG - Active ibuprofen 400 mg tablet take 1 tablet by oral route every 6 - 8 hours as needed 400 MG - Active methocarbamol 500 mg tablet take 1 tablet by oral route 2 times every day 500 MG - Active Stool Softener 50 mg capsule take 2 capsule by oral route every day at bedtime as needed 100 MG - Active Nausea Control oral solution - Active Procedures Procedure Date OFFICE/OUTPATIENT VISIT, EST Cancelled Appt Fee OFFICE/OUTPATIENT VISIT, EST OFFICE/OUTPATIENT VISIT, EST OFFICE/OUTPATIENT VISIT, EST OFFICE/OUTPATIENT VISIT, EST OFFICE/OUTPATIENT VISIT, EST OFFICE/OUTPATIENT VISIT, EST OFFICE/OUTPATIENT VISIT, EST OFFICE/OUTPATIENT VISIT, EST OFFICE/OUTPATIENT VISIT, EST OFFICE CONSULTATION Drug test def 22+ classes Drug Urine Toxology With Chromatography Advance Directives Directive Yes / No Effective Date File Name No Information Encounters Encounter Description Practice Location Reason(s) For Visit Diagnoses Date Provider Providers Copied on Encounter [facility], [address] [place] [address] [place], [id number] , [place] tel:[phone] [facility] [place] No Information 2 Will Vlad. [address] [place] [address] [place], [place], [id number] , [place]. tel:[phone] OFFICE/OUTPAT IENT VISIT, [facility], [address] [place] [address] [place], [id number] , [place] tel:[phone] [facility] [place] left knee pain (chief complaint) Other chronic postprocedural painPain in left kneeFibromyalgiaL joni term (current) use of opiate analgesic 9 Ludy Jarrett. [address] [place] [address] [address], [place], [place], [id number] , [place]. tel:[phone] Referring Provider: Simona Mendez[address], [address]. tel:[phone] [facility], [address] [place] [address] [place], [id number] , [place] tel:[phone] [facility] [place] No Information 9 Will Vlad. [address] [place] [address] [place], [place], [id number] , [place]. tel:[phone] Referring Provider: Simona Mendez[address], [address]. [phone] OFFICE/OUTPAT IENT VISIT, [facility], [address] [place] [address] [place], [id number] , [place] tel:[phone] [facility] [place] left knee pain (chief complaint) Other chronic postprocedural painPain in left kneeFibromyalgiaL joni term (current) use of opiate analgesic 9 Ludy Jarrett. [address] [place] [address] [address], [place], [place], [id number] , [place]. tel: [phone] Referring Provider: Simona Mendez, [facility] [address] [place] [address], [facility]. tel: [phone] OFFICE/OUTPAT IENT VISIT, [facility], [address] [place], [place], [id number] , [place] tel: [phone] [facility] right knee pain (chief complaint) Other chronic postprocedural painPain in left kneeFibromyalgiaL joni term (current) use of opiate analgesic 9 Ludy Jarrett. [address] [place] [address] [address], [place], [place], [id number] , [place]. tel: [phone] Referring Provider: Simona Mendez, [address], [facility]. tel: [phone] OFFICE/OUTPAT IENT VISIT, [facility], [address] [place], [place], [id number] , [place] tel: [phone] [facility] right knee pain (chief complaint) Other chronic postprocedural painPain in left kneeFibromyalgiaL joni term (current) use of opiate analgesic 0 9 Bostonj[place]ua Jarrett. [address] [place] [address] [address], [place], [place], [id number] , [place]. tel: [phone] Referring Provider: Simona Mendez, [facility] [address] [place] [address], [facility]. tel:[phone] OFFICE/OUTPAT IENT VISIT, [facility], [address] [place], [place], [id number] , [place] tel: [phone] [facility] right knee pain (chief complaint) Other chronic postprocedural painPain in left kneeLong term (current) use of opiate analgesicFibromya lgia Oct- 9 Ludy Jarrett. [address] [place] [address] [address], [place], [place], [id number] , [place]. tel: [phone] Referring Provider: Simona Mendez, [facility] [address], [facility]. tel:[phone] OFFICE/OUTPAT IENT VISIT, [facility], [address] [place] [address], [id number] , [place] tel: [phone] [facility] right knee pain (chief complaint) Other chronic postprocedural painPain in left kneeLong term (current) use of opiate analgesic September- 5- 9 Ludy Jarrett. [address] [place] [address] 11 [facility] [place] [address], [place], [place], [id number] , [place]. tel: [phone] Referring Provider: Simona Mendez, [facility] [address], [facility]. tel:[phone] OFFICE/OUTPAT IENT VISIT, [facility], [address] [place] [address], [id number] , [place] tel: [phone] [facility] right knee pain (chief complaint) Other chronic postprocedural painPain in left kneeLong term (current) use of opiate analgesic Apr-1 7-201 9 Ludy Jarrett. [address] [place] [address] 11 [facility], [place] [address], [place], [place], [id number] , [place]. tel: [phone] Referring Provider: [facility] [address], [facility]. tel:[phone] OFFICE/OUTPAT IENT VISIT, [facility], [address] [place] [address], [id number] , [place] tel: [phone] [facility] right knee pain (chief complaint) Pain in left kneeOther chronic postprocedural painLong term (current) use of opiate analgesic Apr-0 3-201 9 Hutchinsadriana Casiano. [facility], [address] [place] [address] [address] [facility], [address] [address], [place], [address], [place]. tel: [phone] Referring Provider: Simona Mendez, [facility] [address] [place] [address], [address]. tel:[phone] OFFICE/OUTPAT IENT VISIT, [facility], [address] [place] [address], [id number] , [place] tel:[phone] [facility] Leg Pain (chief complaint) Pain in left kneeLong term (current) use of opiate analgesicHeadache Jul-2 0-201 9 Hutchins Oh. [place], [address], [place], [address], [place]. tel:[phone] Referring Provider: Simona Mendez[address], [facility]. tel:[phone] OFFICE/OUTPAT IENT VISIT, [facility], [address] [place] [address], [id number] , [place] tel:[phone] [facility] Leg Pain (chief complaint) Pain in left kneePain in left legLong term (current) use of opiate analgesic Mar-0 6-201 9 Ludy Jarrett. [address] [place] [address] [address], [place], [place], [id number] , [place]. tel:[phone] Referring Provider: Simona Mendez[address], [address]. tel:[phone] OFFICE CONSULTATION [facility], [address] [place] [address], [id number] , [place] [phone] [facility] Leg Pain (chief complaint) Pain in left kneePain in left legLong term (current) use of opiate analgesicEncounte r for therapeutic drug level monitoring Feb-2 0-201 9 Hutchins Oh. [place], [address], [place], [address], [place]. tel:[phone] Referring Provider: Simona Mendez [facility] [address] [place] [address], [address]. tel:[phone] Family History Family Member Type Diagnosis Age At Onset Father Problem (finding) chronic pain Mother Problem (finding) chronic pain Payers Payer name Insurance type Covered libertarian ID Yayo shultz(s) [employer] Claims [place] [id number] Social History Type Description Quantity Date Captured Comments Sex Female Smoking Status No Information Chief Complaint And Reason For Visit No Information Reason For Referral Reason For Referral No Information Plan Of Treatment Date Type Action Status Future Order: Lab Order [facility] RINCON DRUG ANALYSIS, URINE, WITH MED REPORT ([id number]), Ordered on: Ordered History Of Present Illness Encounter Date Complaint History Of Prese nt Illness left knee pain Duration: chroni c. Severity level is moderate. It occurs constantly. Location: left knee. The pain is aching. The pain is aggravated by daily activities. The pain is relieved by pain/RX meds and rest. left knee pain (comments) Misty is here today for a followup and medication refill. She presents without medications- at home, due out 03/08/19. Current medication regimen provides 50% relief. Denies side effects from current medication regimen. Pain today is worse. Recently consulted rheumatology for extensive w/u. W/u came back unremarkable, per patient report. [facility] fuel storage technician recommended she double up" on all medications including Cymbalta, Gabapentin, and oxycodone.Has started PT ar [facility] with some benefit. [facility] physical therapist recommended TENS unit Rx for at home use and inquires about this today. Expresses frustration today regarding ongoing pain and wishes she had more answers regarding her condition. Patient is not accompanied today and has no further questions or other concerns. left knee pain Duration: chroni c. Severity level is moderate. It occurs constantly and is fluctuating. Location: bilateral upper back, low back and BUE. The pain is aching, sharp and tingling. The pain is aggravated by bending, climbing (and descending) stairs, walking, twisting, movement and housework. The pain is relieved by ice, changing positions, lying down, medications, sitting, stretching and walking. left knee pain (comments) Keara is here today for a followup and medication refill. She presents with #8 Tramadol, and #6 oxycodone. Medications are on track. Current medication regimen provides about 50% relief. Denies side effects from current medication regimen. Pain today is fluctuating. Recently returned from [place] which has aggravated her pain. Additionally c/o spasms in BLE. Of note, Keara details symptoms of decreased cognitive function today and inquires whether this could be r/t her opiate medications. Patient is not accompanied today and has no further questions or other concerns. right knee pain (comments) Vasiliy chavarria is here today for a followup and medication refill. She presents with #37 Tramadol, and#10 oxycodone. Has surplus of medications. Current medication regimen provides about 40% relief. Denies side effects from current medication regimen. Pain today is fluctuating attributed to caring for her and children following 's recent knee surgery. Says she has begun experiencing noticeable improvements in her pain since starting Cymbalta. Patient is not accompanied today and has no further questions or other concerns. right knee pain Duration: chroni c. Severity level is 5. The problem is fluctuating. Location: right knee. The pain is aching and sharp. The pain is aggravated by bending, climbing (and descending) stairs, movement, sitting, walking, standing and prolonged positioning. The pain is relieved by pain/RX meds, rest, stretching, changing positions and chiropractic. right knee pain Severity level i s 6. It occurs constantly and is worsening. Location: left knee. The pain is aching. The pain is aggravated by bending, movement, sitting, walking, standing, lying down, prolonged positioning, twist and housework. The pain is relieved by changing positions, chiropractic, lying down, meds, sit, stand, walk and stretch. right knee pain (comments) Vasiliy chavarria is here today for a f/u and medication management. She presents with #16 Tramadol, and #0 oxycodone. Has remaining medication at home. Feels her condition is worsening and has noticed more symptoms in her R knee with swelling and pain in RLE. L knee pain has also worsened which she attributes to increased activity while traveling. Was recently seen by fuel storage technician and started Cymbalta-- has not yet experienced notable benefit. [employer] has also ordered PT which patient intends on scheduling soon. States she took a couple more doses of her oxycodone d/t increased activity for the duration of her recent trip. right knee pain Severity level i s 5. It occurs constantly and is fluctuating. Location: right low back. The pain is aching and sharp. The pain is aggravated by bending, climbing (and descending) stairs, lifting, movement, sitting, walking and standing. The pain is relieved by pain/RX meds, changing positions and chiropractic. right knee pain (comments) Vasiliy chavarria is here today for a followup and medication refill. She presents with #46 Tramadol and #33 oxycodone. Medications are in surplus. Current medication regimen provides about 50% relief. Denies side effects from current medication regimen. States pain has remained mostly the same overall, however c/o increased leg cramps in her L anterior thigh. Recently was seen by fuel storage technician at [facility] who has advised Cymbalta for [employer] hypersensitivity which she intends on trialling soon.Patient is not accompanied today and has no further questions or other concerns. right knee pain Severity level i s 6. It occurs constantly and is changing in character. Location: right R knee and BL calfs. The pain is aching and sharp. The pain is aggravated by bending, climbing (and descending) stairs, lifting, movement, sitting, standing, lying down, housework, twist, walk and prolonged positioning. The pain is relieved by ice, pain/RX meds, physical therapy, changing positions, ice, lying down, walk, stand, stretch and sit. right knee pain (comments) Vasiliy chavarria is here today for a followup and medication refill. She presents with #82 tramadol-- large surplus; and #16 oxycodone-- surplus. Current medication regimen provides 50% relief. Denies side effects from current medication regimen. Pain today is changing. C/o BL leg cramping. States she recently had a Rheumatology consultation with initial blood work showing inquires inflammatory markers. She wonders if this could be related to her new symptoms in her legs. Patient is not accompanied today and has no further questions or other concerns. right knee pain Severity level i s 6. It occurs constantly and is changing in character. Location: left knee. The pain is aching and sharp. The pain is aggravated by bending, climbing (and descending) stairs, lifting, movement, sitting, walking, standing and prolonged positioning. The pain is relieved by ice, stretching, changing positions, sitting and standing. right knee pain (comments) Vasiliy chavarria is here today for a followup and medication refill. She presents with #23 Tramadol and #8 oxycodone. Medications are on track. Current medication regimen provides 40% relief. Denies side effects from current medication regimen. Pain today is changing.Keara recently sought a second orthopedic opinion with Dr. Perez at [facility] regarding her ongoing L knee pain following arthroscopy procedure in Mar. She was given a cortisone injection on Sun. by [facility] for inflammation. Additionally had updated MRI which showed no ligament or bone deformities. [facility] recommended she meet with fuel storage technician which she plans on doing so in the near future. Patient is not accompanied today and has no further questions or other concerns. right knee pain Onset: gradual. Duration: chronic. Severity level is incapacitating. It occurs constantly and is worsening. Location: right knee. The pain is tingling. The pain is aggravated by bending, climbing stairs, movement, walking and standing. Associated symptoms include swelling. There are no pertinent negatives. right knee pain (comments) Mrs. Ward presents for additional f/u to discuss potential increase in tramadol. She rates her pain as 10/10 without meds and 6/10 with meds. Her right knee pain and swelling have worsened and now radiating throughout the knee region. Recent MRI showed possible abscess vs. recurrent cyst. Will be speaking with her orthopedic team to determine next steps. Reports that she is able to work with a combination of 2 tramadol tabs and hydroxyzine. Leg Pain Duration: chroni c. Severity level is 4. It occurs constantly and is fluctuating. Location: L knee, L hip, low back and gluteal area. The pain is aching. The pain is aggravated by bending, climbing stairs, lifting, movement, sitting, walking, standing, housework, prolonged positioning and twisting. The pain is relieved by ice, pain/RX meds, physical therapy, stretching and changing positions. Leg Pain (comments) Keara is he re for follow up and medications refill. Presents with #8 tramadol and #7 oxycodone-- surplus. Reports current medication regimen provides 50% pain relief. Denies side effects from current medication regimen. Has not noticed benefit from gabapentin-- currently taking 300mg QD. Pain is fluctuating. C/o persistent L knee pain and headache today. Has L knee MRI scheduled later today. Reports constant swelling and mild allodynia, but no color changes or temperature asymmetry. No other concerns today. Leg Pain (comments) Keara is he re today for a f/u after initial consult regarding her L LE pain. Continues to c/o ongoing pain, swelling, and popping sensation in her L knee. Pain is aggravated by twisting and movement. Patient is tearful during today's OV regarding her ongoing pain and inquires about her treatment plan today. Of note, when recent UDT results which showed + hydrocodone were addressed, Keara admitted to utilizing hydrocodone from an old Rx in April.Patient is not accompanied today and has no further questions or other concerns. Leg Pain Duration: chroni c. Severity level is 2. It occurs constantly. Location: left knee. The pain is aggravated by bending, climbing (and descending) stairs, movement, sitting, walking, standing, housework, prolonged positioning and twisting. The pain is relieved by heat, ice, pain/RX meds, physical therapy, stretching, changing positions and chiropractic. Leg Pain (comments) Keara is he re for initial consult for L leg and knee pain, referred by Emanuel Gill MD at [facility] . Her pain began 3 months ago s/p L knee arthroscopy. Reports she initially experienced allodynia, temperature changes, and swelling although these sxs have improved. Current pain is intermittent and varies depending on level of swelling, and activity. Expresses frustration regarding her pain as it inhibits ability to walk and participate in normal activities. Underwent PT at [facility] from 12/2017-05/2018--helpful. Trialed L knee cortisone injection at [facility] which was helpful for approximately one month before her pain returned. Reports previous imaging of L knee and femur with [facility]. Currently managed on Tramadol 50mg PRN during the day, alternated with ibuprofen 800mg and Vistaril 25mg QID. Additionally takes #2 tablets of oxycodone 5mg, and Gabapentin 300mg nightly for additional pain relief. Keara is interested in medication management and other recommended therapies and would like [facility] to assume management of pain care. Leg Pain Duration: chroni c. Severity level is 10. It occurs constantly. Location: left lower leg. The pain is aching and sharp. The pain is aggravated by bending, climbing (and descending) stairs, movement, sitting, walking, standing and housework. The pain is relieved by ice, pain/RX meds, physical therapy and stretching. Functional Status Date Functional Assessmen t No Information Instructions Date Instruction Additional Infor mation No Information Assessments Type Assessment Date No Information Patient Care Teams Name Effective Dates (start - stop) Status Members No Information
== END 2022-09-01 13:08 | disposition home or self-care (01) ==
LOC: NFLDREF 09-02 08:06
PROVIDERS: PCP Physician Assistant Medical; Referring Provider Physician Assistant Medical; Visit Provider Physician Assistant Medical
DX: Z00.00 Encounter for general adult medical examination without abnormal findings (principal); I10 Essential (primary) hypertension; R10.32 Left lower quadrant pain; E66.9 Obesity, unspecified
CPT/HCPCS: 80053; 80061; 84443

== ENCOUNTER 2023-06-15 10:57 | Outpatient (CLI) | payer BC, SELFPAY ==
--- OUTSIDE RECORDS SUMMARY | 2023-06-19 13:01 | XMS_ITS | Continuity of Care Document ---
Author Name Unknown Organization [facility] kuldip Address [address] [place] [address] Phone Care Team Providers Care Strawhat Sizer Name Role Phone Will MD MARQUEZ, Vlad [...] Diagnoses Date Provider Providers Copied on Encounter [facility], [address] [place] [address] [place], [place], [id number] , [place] tel:[phone] [facility] [place] No Information 2 Will Vlad. [address] [place] [address] [place], [place], [id number] , [place]. tel:[phone] OFFICE/OUTPAT IENT VISIT, [facility], [address] [place] [address] [place], [place], [id number] , [place] tel:[phone] [facility] [place] left knee pain (chief complaint) Other chronic postprocedural painPain in left kneeFibromyalgiaL joni term (current) use of opiate analgesic 9 Ludy Jarrett. [address] [place] [address] [address], [place], [place], [id number] , [place]. tel:[phone] Referring Provider: Simona Mendez[address], [address]. tel:[phone] [facility], [address] [place] [address] [place], [id number] , [place] tel:[phone] [facility] [place] No Information 9 Will Vlad. [address] [place] [address] [place], [place], [id number] , [place]. tel:[phone] Referring Provider: Simona Mendez[address], [address]. [phone] OFFICE/OUTPAT IENT VISIT, [facility], [address] [place] [address] [place], [id number] , [place] tel:[phone] [facility] [place] left knee pain (chief complaint) Other chronic postprocedural painPain in left kneeFibromyalgiaL joni term (current) use of opiate analgesic 9 Ludy Jarrett. [address] [place] [address] [address], [place], [place], [id number] , [place]. tel: [phone] Referring Provider: Simona Mendez, [facility] [address] [place] [address], [facility]. tel: [phone] OFFICE/OUTPAT IENT VISIT, [facility], [address] [place], [place], [id number] , [place] tel: [phone] [facility] right knee pain (chief complaint) Other chronic postprocedural painPain in left kneeFibromyalgiaL joni term (current) use of opiate analgesic 9 Ludy Jarrett. [address] [place] [address] [address], [place], [place], [id number] , [place]. tel: [phone] Referring Provider: Simona Mendez, [address], [facility]. tel: [phone] OFFICE/OUTPAT IENT VISIT, [facility], [address] [place], [place], [id number] , [place] tel: [phone] [facility] right knee pain (chief complaint) Other chronic postprocedural painPain in left kneeFibromyalgiaL joni term (current) use of opiate analgesic 0 9 Bostonjoshua Jarrett. [address] [place] [address] [address], [place], [place], [id number] , [place]. tel: [phone] Referring Provider: Simona Mendez, [facility] [address] [place] [address], [facility]. tel:[phone] OFFICE/OUTPAT IENT VISIT, [facility], [address] [place], [place], [id number] , [place] tel: [phone] [facility] right knee pain (chief complaint) Other chronic postprocedural painPain in left kneeLong term (current) use of opiate analgesicFibromya lgia Oct- 9 Ludy Jarrett. [address] [place] [address] [address], [place], [place], [id number] , [place]. tel: [phone] Referring Provider: Simona Mendez, [facility] [address], [facility]. tel:[phone] OFFICE/OUTPAT IENT VISIT, [facility], [address] [place] [address], [id number] , [place] tel: [phone] [facility] right knee pain (chief complaint) Other chronic postprocedural painPain in left kneeLong term (current) use of opiate analgesic September- 5- 9 Ludy Jarrett. [address] [place] [address] 11 [facility] [address], [place], [place], [id number] , [place]. tel: [phone] Referring Provider: Simona Mendez, [facility] [address], [facility]. tel:[phone] OFFICE/OUTPAT IENT VISIT, [facility], [address] [place] [address], [id number] , [place] tel: [phone] [facility] right knee pain (chief complaint) Other chronic postprocedural painPain in left kneeLong term (current) use of opiate analgesic Apr-1 7-201 9 Ludy Jarrett. [address] [place] [address] 11 [facility] 100, [place], [place], [id number] , [place]. tel: [phone] Referring Provider: [facility] [address], [facility]. tel:[phone] OFFICE/OUTPAT IENT VISIT, [facility], [address] [place] [address], [id number] , [place] tel: [phone] [facility] right knee pain (chief complaint) Pain in left kneeOther chronic postprocedural painLong term (current) use of opiate analgesic Apr-0 3-201 9 Hutchinsadriana Casiano. [facility], [address] [place] [address] [address] [facility] [address], [place], [address], [place]. tel: [phone] Referring Provider: Simona Mendez, [facility] [address] [place] [address], [address]. tel:[phone] OFFICE/OUTPAT IENT VISIT, [facility], [address] [place] [address], [id number] , [place] tel:[phone] [facility] Leg Pain (chief complaint) Pain in left kneeLong term (current) use of opiate analgesicHeadache Jul-2 0-201 9 Hutchins Oh. Online Dealer, [address], [place], [address], [place]. tel:[phone] Referring Provider: Simona Mendez[address], [facility]. tel:[phone] OFFICE/OUTPAT IENT VISIT, [facility], [address] [place] [address], [id number] , [place] tel:[phone] [facility] Leg Pain (chief complaint) Pain in left kneePain in left legLong term (current) use of opiate analgesic Mar-0 6-201 9 Ludy Jarrett. [address] [place] [address] [address], [place], [place], [id number] , [place]. tel:[phone] Referring Provider: Simona Mendez[address], [address]. tel:[phone] OFFICE CONSULTATION [facility], [address] [place] [address], [id number] , [place] [phone] [facility] Leg Pain (chief complaint) Pain in left kneePain in left legLong term (current) use of opiate analgesicEncounte r for therapeutic drug level monitoring Feb-2 0-201 9 Hutchins Oh. Online Dealer, [address], [place], [address], [place]. tel:[phone] Referring Provider: Simona Mendez [facility] [address] [place] [address], [address]. tel:[phone] Family History Family Member Type Diagnosis Age At Onset Father Problem (finding) chronic pain Mother Problem (finding) chronic pain Payers Payer name Insurance type Covered libertarian ID Yayo shultz(s) [employer] Sr[employer] Claims CI [id number] Social History Type Description Quantity Date Captured Comments Sex Female Smoking Status No Information Chief Complaint And Reason For Visit No Information Reason For Referral Reason For Referral No Information Plan Of Treatment Date Type Action Status Future Order: Lab Order ROMANA RINCON DRUG ANALYSIS, URINE, WITH MED REPORT ([id number]), Ordered on: Ordered History Of Present Illness Encounter Date Complaint History Of Prese nt Illness left knee pain (comments) Misty is here today for a followup and medication refill. She presents without medications- at home, due out 03/08/19. Current medication regimen provides 50% relief. Denies side effects from current medication regimen. Pain today is worse. Recently consulted rheumatology for extensive w/u. W/u came back unremarkable, per patient report. [facility] cardiology clinical nurse specialist recommended she double up" on all medications including Cymbalta, Gabapentin, and oxycodone.Has started PT ar [facility] and clinics with some benefit. [facility] physical therapist recommended TENS unit Rx for [...] meds and rest. left knee pain (comments) Keara is here today for a followup and medication refill. She presents with #8 Tramadol, and #6 oxycodone. Medications are on track. Current medication regimen provides about 50% relief. Denies side effects from current medication regimen. Pain today is fluctuating. Recently returned from [place] which has aggravated her pain. Additionally c/o [...] lying down, medications, sitting, stretching and walking. right knee pain Duration: chroni c. Severity [...] activity while traveling. Was recently seen by cardiology clinical nurse specialist and started Cymbalta-- has not yet experienced notable benefit. Steel Rule Die Maker Apprentice has also ordered PT which patient intends on scheduling soon. States she took a couple more doses of her oxycodone d/t increased activity for the duration of her recent trip. right knee pain (comments) Vasiliy chavarria is here today for a followup and medication refill. She presents with #46 Tramadol and #33 oxycodone. Medications are in surplus. Current medication regimen provides about 50% relief. Denies side effects from current medication regimen. States pain has remained mostly the same overall, however c/o increased leg cramps in her L anterior thigh. Recently was seen by cardiology clinical nurse specialist at [facility] who has advised Cymbalta for TRAINING TECHNICIAN hypersensitivity which she intends on trialling soon.Patient [...] second orthopedic opinion with Dr. Perez at [facility] regarding her ongoing L knee pain following arthroscopy procedure in Mar. She was given a cortisone injection on Sun. by [facility] for inflammation. Additionally had updated MRI which showed no ligament or bone deformities. [facility] recommended she meet with cardiology clinical nurse specialist which she plans on doing so in [...] positions, sitting and standing. right knee pain Onset: gradual. Duration: chronic. [...] 2 tramadol tabs and hydroxyzine. Leg Pain (comments) Keara is he re [...] asymmetry. No other concerns today. Leg Pain Duration: chroni c. Severity level is 4. It occurs constantly and is fluctuating. Location: L knee, L hip, low back and gluteal area. The pain is aching. The pain is aggravated by bending, climbing stairs, lifting, movement, sitting, walking, standing, housework, prolonged positioning and twisting. The pain is relieved by ice, pain/RX meds, physical therapy, stretching and changing positions. Leg Pain Duration: chroni c. Severity level [...] further questions or other concerns. Leg Pain (comments) Keara is he re for initial consult for L leg and knee pain, referred by Emanuel Gill MD at [facility] . Her pain began 3 months ago s/p L knee arthroscopy. Reports she initially experienced allodynia, temperature changes, and swelling although these sxs have improved. Current pain is intermittent and varies depending on level of swelling, and activity. Expresses frustration regarding her pain as it inhibits ability to walk and participate in normal activities. Underwent PT at [facility] from 12/2017-05/2018--helpful. Trialed L knee cortisone injection at [facility] which was helpful for approximately one [...] and other recommended therapies and would like [facility] to assume management of pain care. [...]
--- OUTSIDE RECORDS SUMMARY | 2023-06-19 13:01 | XMS_ITS | Encounter Summary ---
Author Name Unknown Organization [facility] Address [address] [place] [address] Care Team Providers Care Post Hole Digger Name Role Phone Chirag Metzger PA-C Primary Care Provider [phone] Encounter Details Date Type Department Care Team Description 09/17/2012 Correspondence [facility] [address] [facility] [place] [place] [address] Enoc Blanca DC CHIROPRACTIC PT LIABILITY PAW Social History Tobacco Use Types Packs/Day Years Used Date Smoking Tobacco: Never Smokeless Tobacco: Never Alcohol Use Standard Drinks/Week Comments Yes 0 (1 standard drink = 0.6 oz pur e alcohol) occasional Sex and Gender Information Value Date Recorded Sex Assigned at Not on file Gender Identity Not on file Sexual Orientation Not on file documented as of this encounter Progress Notes * Enoc Blanca DC - 09/17/2012 12:00 AM CDT documented in this encounter Plan of Treatment Not on file documented as of this encounter Visit Diagnoses Not on filedocumented in this encounter Care Teams Post Hole Digger Relationship Specialty Start Date End Date Chirag Metzger PA-C [address] [place] [address] PCP - General Physician Hot Strip Finisher 07/06/16 documented as of this encounter
--- OUTSIDE RECORDS SUMMARY | 2023-06-19 13:01 | XMS_ITS | Encounter Summary ---
Author Name Unknown Organization [facility] Address [address] [place] [address] Care Team Providers Care Injection Wax Molder Name Role Phone Chirag Metzger PA-C Primary Care Provider [phone] Encounter Details Date Type Department Care Team Description 11/03/1999 Orders Only Keya Gay MD [address] [place] [address] Social History Tobacco Use Types Packs/Day Years Used Date Smoking Tobacco: Never Assessed Sex and Gender Information Value Date Recorded Sex Assigned at Not on file Gender Identity Not on file Sexual Orientation Not on file documented as of this encounter Plan of Treatment Not on file documented as of this encounter Visit Diagnoses Not on filedocumented in this encounter Care Teams Injection Wax Molder Relationship Specialty Start Date End Date Chirag Metzger PA-C [address] [place] [address] PCP - General Physician Shield Cleaner 07/06/16 documented as of this encounter
--- OUTSIDE RECORDS SUMMARY | 2023-06-19 13:01 | XMS_ITS | Encounter Summary ---
Author Name Unknown Organization [facility] Address [address] [place] [address] Care Team Providers Care Professor Of Communication Name Role Phone Chirag Metzger PA-C Primary Care Provider [phone] Encounter Details Date Type Department Care Team Description 10/31/2011 Correspondence [facility] [address] [place] [address] Enoc Blanca DC CHIROPRACTIC PT LIABILITY PAW Social History Tobacco Use Types Packs/Day Years Used Date Smoking Tobacco: Never Assessed Sex and Gender Information Value Date Recorded Sex Assigned at Not on file Gender Identity Not on file Sexual Orientation Not on file documented as of this encounter Progress Notes * Enoc Blanca DC - 10/31/2011 12:00 AM CDT documented in this encounter Plan of Treatment Not on file documented as of this encounter Visit Diagnoses Not on filedocumented in this encounter Care Teams Professor Of Communication Relationship Specialty Start Date End Date Chirag Metzger PA-C [address] [place] [id number] PCP - General Physician Cardiopulmonary Technologist Chief 07/06/16 documented as of this encounter
--- OUTSIDE RECORDS SUMMARY | 2023-06-19 13:01 | XMS_ITS | Encounter Summary ---
Author Name Unknown Organization [facility] Address [address] [place] [address] Care Team Providers Care National Expansion Recruiter Name Role Phone Chirag Metzger PA-C Primary Care Provider [phone] Encounter Details Date Type Department Care Team Description 09/02/1999 Orders Only Andrew Pappas MD [address] [place] [address] Social History Tobacco Use Types Packs/Day Years Used Date Smoking Tobacco: Never Assessed Sex and Gender Information Value Date Recorded Sex Assigned at Not on file Gender Identity Not on file Sexual Orientation Not on file documented as of this encounter Plan of Treatment Not on file documented as of this encounter Visit Diagnoses Not on filedocumented in this encounter Care Teams National Expansion Recruiter Relationship Specialty Start Date End Date Chirag Metzger PA-C [address] [place] [address] PCP - General Physician Control Panel Operator 07/06/16 documented as of this encounter
--- OUTSIDE RECORDS SUMMARY | 2023-06-19 13:01 | XMS_ITS | Encounter Summary ---
Author Name Unknown Organization [facility] Address [address] [place] [address] Care Team Providers Care Sociology Faculty Member Name Role Phone Chirag Metzger PA-C Primary Care Provider [phone] Encounter Details Date Type Department Care Team Description 08/22/1999 Orders Only Luis Fernando Dc MD [address] [place] [address] Social History Tobacco Use Types Packs/Day Years Used Date Smoking Tobacco: Never Assessed Sex and Gender Information Value Date Recorded Sex Assigned at Not on file Gender Identity Not on file Sexual Orientation Not on file documented as of this encounter Plan of Treatment Not on file documented as of this encounter Visit Diagnoses Not on filedocumented in this encounter Care Teams Sociology Faculty Member Relationship Specialty Start Date End Date Chirag Metzger PA-C [address] [place] [address] PCP - General Physician Securities Compliance Examiner 07/06/16 documented as of this encounter
--- OUTSIDE RECORDS SUMMARY | 2023-06-19 13:01 | XMS_ITS | Encounter Summary ---
Author Name Unknown Organization [facility] Address [address] [place] [address] Care Team Providers Care Leather Goods Sales Representative Name Role Phone Chirag Metzger PA-C Primary Care Provider [phone] Encounter Details Date Type Department Care Team Description 01/06/2000 Orders Only Luis Fernando Dc MD [address] [place] [address] Social History Tobacco Use Types Packs/Day Years Used Date Smoking Tobacco: Never Assessed Sex and Gender Information Value Date Recorded Sex Assigned at Not on file Gender Identity Not on file Sexual Orientation Not on file documented as of this encounter Plan of Treatment Not on file documented as of this encounter Visit Diagnoses Not on filedocumented in this encounter Care Teams Leather Goods Sales Representative Relationship Specialty Start Date End Date Chirag Metzger PA-C [address] [place] [address] PCP - General Physician Molecular Biologist 07/06/16 documented as of this encounter
--- OUTSIDE RECORDS SUMMARY | 2023-06-19 13:01 | XMS_ITS | Clinical Summary ---
Author Name Unknown Organization [facility] Address [address] [place] [address] Care Team Providers Care Thermal Cutting Machine Operator Name Role Phone Chirag Metzger PA-C Primary Care Provider [phone] Source Comments You are receiving this document as you are listed as the primary care provider,follow-up provider, or the patient has been referred to you for consultation.This is in compliance with the Medicare and[facility] EHR Incentive Program,which states Providers who transition their patient to another setting of careor provider of care or refers their patient to another provider of care shouldprovide summary care record for each transition of care or referral. [facility] Allergies No known active allergies Medications Medication Sig Dispensed Refills Start Date End Date Status hydrochlorothiazid e 12.5 MG capsuleIndications :JANE UMAÑA SunJul 21, 2015 10:44 AM Received from: External Pharmacy Indications: PN: JANE UMAÑA SunJul 21, 2015 10:44 AM Received from: External Pharmacy 2 07/07/2015 Active latanoprost (XALATAN) 0.005 % eye drop solution 1 Drop every evening. 0 Active COMBIGAN 0.2-0.5 % eye drop solution 99 09/01/2018 Active DULoxetine (CYMBALTA) 20 MG capsuleIndications :Chronic pain of left knee Take 2 Capsules by mouth daily. 60 Capsule 0 02/14/2019 Active celecoxib (CELEBREX) 100 MG capsule Take 1 Capsule by mouth two times a day. 180 Capsule 0 02/14/2019 Active lisinopril (ZESTRIL) 10 MG tablet take one tablet (10 MG) by mouth DAILY Take 1 tab in addition to already prescribed 10 mg; for a total of 30 mg per day 0 01/21/2021 Active lidocaine (LIDODERM) 5 % patch Apply 1 Patch to skin daily. Leave on for up to 12 hours in a 24 hour period, then remove. 0 02/16/2021 Active traMADol (ULTRAM) 50 MG tablet Take by mouth. 0 03/07/2022 Active gabapentin (NEURONTIN) 600 MG tablet Take 1 Tablet (600 mg) by mouth two times a day. 180 Tablet 3 04/26/2022 Active Active Problems Problem Noted Date Diagnosed Date Facet arthritis of lumbar region 04/26/2022 Alopecia 04/26/2022 Primary osteoarthritis of both knees 04/26/2022 Chronic pain syndrome 10/23/2018 Fibromyalgia 10/23/2018 Chronic pain of left knee 10/23/2018 Low back pain, non-specific 10/26/2017 Segmental and somatic dysfunction of cervical re gion 07/14/2016 Segmental and somatic dysfunction of thoracic re gion 07/14/2016 Segmental and somatic dysfunction of sacral radu on 07/14/2016 Cervicalgia 07/14/2016 Pain in thoracic spine 07/14/2016 Endometriosis 07/06/2016 Primary open angle glaucoma of both eyes, mild s tage 07/06/2016 Spasm of back muscles 04/03/2016 Obese 09/17/2013 Overview: Currently working with obesity clinic. Migraine, chronic, without a ura, intractable, with status migrainosus 09/20/2012 Last Assessment & Plan: She has had a typical migraine, symptom-cole, but it has lasted since 01/23/2014. Does get better, but will recur within 24 hours when it goes away. She has a tightness across the top of her head and into her forehead, nausea, and light sensitivity. She was seen at [facility] on 01/28/2014, and was given a shot [...] part-time work. Resolved Problems Problem Noted Date Diagnosed Date Resolved Date Pain in thoracic spine 07/14/201607/14 Low back pain 07/14/2016 10/26/2017 Segmental and somatic dysfun ction of cervical region 04/03/2016 07/14/2016 Segmental and somatic dysfun ction of thoracic region 04/03/2016 07/14/2016 Segmental and somatic dysfun ction of sacral region 04/03/2016 07/14/2016 Cervicalgia 04/03/2016 07/14/2016 Headache 09/10/2015 04/03/2016 Cervical (neck) region somatic dysfunction 10/19/2014 04/03/2016 Overview: Epic Nonallopathic lesion of thoracic region 10/19/2014 04/03/2016 Overview: Epic Somatic dysfunction of sacral region 10/19/2014 04/03/2016 Overview: Epic Cervicalgia 10/19/2014 04/03/2016 Spasm of muscle 10/19/2014 04/03/2016 Sprain of sacrum 08/12/2014 10/19/2014 Sprain of thoracic region 08/12/2014 Sprain of neck 08/12/2014 10/19/2014 Nonallopathic lesion of thoracic region 02/20/2012 10/19/2014 Overview: Epic Nonallopathic lesion of cervical region 02/20/2012 10/19/2014 Overview: Epic ; Other nonallopathic lesion of cervical region Spasm of muscle 02/20/2012 10/19/2014 Sciatica 02/20/2012 08/21/2012 Sciatica 12/07/2011 02/20/2012 Spasm of muscle 12/07/2011 02/20/2012 Nonallopathic lesion of sacral region 10/31/2011 10/19/2014 Overview: Epic Sciatica 10/31/2011 12/07/2011 Spasm of muscle 10/31/2011 12/07/2011 Fibroid uterus 11/04/2014 Overview: s/p hysterectomy 2006 Immunizations Name Administration Dates Next Due Flu Vac (3+ yrs) 04/10/2000 Influenza IIV4 (Quadrivalent ) 0.5mL (31436) 04/05/2017,03/02/2015,02/02/2015,2013 Influenza, Unspecified Formulation 04/14/2016(De ferred: Other),03/04/2013 MMR 05/30/2013,03/04/2013 Pfizer Monovalent 12+ Purple Top 06/22/2020,05/21 TDAP (ADACEL) 08/17/2011 Td 05/20/1995 Tdap 08/17/2011 Family History Medical History Relation Name Comments Lupus Father Glaucoma Mother borderline Lupus Brother Lupus Sister 1 Rheumatoid arthritis Sister 1 Thyroid Disorder Sister 3 hypothyroid ism Cancer Negative Family History Cancer, Colon Negative [...] 3 (1 standard drink = 0.6 oz pur e alcohol) Sex and Gender Information Value Date Recorded Sex Assigned at Not on file Gender Identity Not on file Sexual Orientation Not on file Last Filed Vital Signs Vital Sign Reading Time Taken Comments Blood Pressure 137/73 02/14/2019 3:53 PM CDT Pulse 74 02/14/2019 3:53 PM CDT Temperature 36.8 ??C (98.2 ??F) 11/26/2013 3:49 PM CD T Respiratory Rate 16 11/26/2013 3:49 PM CDT Oxygen Saturation 99% 11/26/2013 3:49 PM CDT Inhaled Oxygen Concentration - - Weight 96.2 kg (212 lb) 02/14/2019 3:53 PM CDT Height 156.2 cm (5' 1.5) 07/06/2016 8:17 AM KILN TESTER Body Mass Index 39.41 07/06/2016 8:17 AM KILN TESTER Plan of Treatment Health Maintenance Due Date Last Done Comments Colonoscopy 1969 Hep C Screening (Preventive Services) 1969 HepB (1) 1969 HIV Screening (Preventive Services) 1985 Adult Preventive Visit 03/06/2019 8, 07/06/2016, 12/19/2000, Additional history exists Zoster/Shingles (1 of 2) 2019 Mammogram 03/20/2019 03/20/2018, 08/2016, 02/02/2016, Additional history exists Cervical Cancer Screening 03/06/20212017, 01/13/2015, 02/13/2013, Additional history exists DTaP/Tdap/Td (3 - Tdap) 08/16/2021 08/17/19, 08/17/2011, 05/20/1995 COVID-19 Vaccine (3 - season) 2023 06/22/2020, 06/01/2020 Influenza (#1) 2023 03/29/2022, 03/21, 04/14/2016, Additional history exists Cholesterol 03/06/2023 03/06/2018, 06/21, 01/13/2015, Additional history exists HepA Aged Out No longer eligi ble based on patient's age to complete this topic Hib Aged Out No longer eligi ble based on patient's age to complete this topic IPV (Polio) Aged Out No longer eligi ble based on patient's age to complete this topic MCV4 Aged Out No longer eligi ble based on patient's age to complete this topic Pneumococcal Aged Out No longer eligi ble based on patient's age to complete this topic Care Teams Thermal Cutting Machine Operator Relationship Specialty Start Date End Date Chirag Metzger PA-C [address] [place] [address] PCP - General Physician Test Engineer 07/06/16
--- OUTSIDE RECORDS SUMMARY | 2023-06-19 13:01 | XMS_ITS | Encounter Summary ---
Author Name Unknown Organization [facility] Address [address] [place] [address] Care Team Providers Care Spot Billing Clerk Name Role Phone Chirag Metzger PA-C Primary Care Provider [phone] Encounter Details Date Type Department Care Team Description 12/20/1999 Orders Only Andrew Pappas MD [address] [place] [address] Social History Tobacco Use Types Packs/Day Years Used Date Smoking Tobacco: Never Assessed Sex and Gender Information Value Date Recorded Sex Assigned at Not on file Gender Identity Not on file Sexual Orientation Not on file documented as of this encounter Plan of Treatment Not on file documented as of this encounter Visit Diagnoses Not on filedocumented in this encounter Care Teams Spot Billing Clerk Relationship Specialty Start Date End Date Chirag Metzger PA-C [address] [place] [address] PCP - General Physician Fish Farm Manager 07/06/16 documented as of this encounter
--- OUTSIDE RECORDS SUMMARY | 2023-06-19 13:01 | XMS_ITS | Encounter Summary ---
Author Name Unknown Organization [facility] Address [address] [place] [address] Care Team Providers Care Supply And Distribution Manager Name Role Phone Chirag Metzger PA-C Primary Care Provider [phone] Encounter Details Date Type Department Care Team Description 12/16/1999 Orders Only Epic, [place] [address] Social History Tobacco Use Types Packs/Day Years Used Date Smoking Tobacco: Never Assessed Sex and Gender Information Value Date Recorded Sex Assigned at Not on file Gender Identity Not on file Sexual Orientation Not on file documented as of this encounter Plan of Treatment Not on file documented as of this encounter Visit Diagnoses Not on filedocumented in this encounter Care Teams Supply And Distribution Manager Relationship Specialty Start Date End Date Chirag Metzger PA-C [address] [place] [address] PCP - General Physician Survey Cad Technician 07/06/16 documented as of this encounter
--- OUTSIDE RECORDS SUMMARY | 2023-06-19 13:02 | XMS_ITS | Encounter Summary ---
Author Name Unknown Organization [facility] Address [address] [place] [address] Care Team Providers Care Speech Therapist Technician Name Role Phone Chirag Metzger PA-C Primary Care Provider [phone] Encounter Details Date Type Department Care Team Description 07/01/1999 Orders Only Keya Gay MD [address] [place] [address] Social History Tobacco Use Types Packs/Day Years Used Date Smoking Tobacco: Never Assessed Sex and Gender Information Value Date Recorded Sex Assigned at Not on file Gender Identity Not on file Sexual Orientation Not on file documented as of this encounter Plan of Treatment Not on file documented as of this encounter Visit Diagnoses Not on filedocumented in this encounter Care Teams Speech Therapist Technician Relationship Specialty Start Date End Date Chirag Metzger PA-C [address] [place] [address] PCP - General Physician In Service Coordinator 07/06/16 documented as of this encounter
--- OUTSIDE RECORDS SUMMARY | 2023-06-19 13:02 | XMS_ITS | Encounter Summary ---
Author Name Unknown Organization [facility] Address [address] [place] [address] Care Team Providers Care Porter Marina Name Role Phone Chirag Metzger PA-C Primary Care Provider [phone] Encounter Details Date Type Department Care Team Description 10/01/1995 [place] [address] [place] [address] Social History Tobacco Use Types Packs/Day Years Used Date Smoking Tobacco: Never Assessed Sex and Gender Information Value Date Recorded Sex Assigned at Not on file Gender Identity Not on file Sexual Orientation Not on file documented as of this encounter Plan of Treatment Not on file documented as of this encounter Visit Diagnoses Not on filedocumented in this encounter Care Teams Porter Marina Relationship Specialty Start Date End Date Chirag Metzger PA-C [address] [place] [address] PCP - General Physician School Librarian 07/06/16 documented as of this encounter
--- OUTSIDE RECORDS SUMMARY | 2023-06-19 13:02 | XMS_ITS | Encounter Summary ---
Author Name Unknown Organization [facility] Address [address] [place] [address] Care Team Providers Care Sleeve Fixer Name Role Phone Chirag Metzger PA-C Primary Care Provider [phone] Encounter Details Date Type Department Care Team [...] on filedocumented in this encounter Care Teams Sleeve Fixer Relationship Specialty Start Date End Date Chirag Metzger PA-C [facility] [place] [address] PCP - General Physician General Ledger Accountant 07/06/16 documented as of this encounter
--- OUTSIDE RECORDS SUMMARY | 2023-06-19 13:02 | XMS_ITS | Encounter Summary ---
Author Name Unknown Organization [facility] Address [address] [place] [address] Care Team Providers Care Mobile Sales Expert Name Role Phone Chirag Metzger PA-C Primary Care Provider [phone] Encounter Details Date Type Department Care Team Description 03/25/1997 Orders Only Carlos Penny MD [facility] [place] [address] [facility], [id number] Social History Tobacco Use Types Packs/Day Years [...] in this encounter Care Teams Mobile Sales Expert Relationship Specialty Start Date End Date Chirag Metzger PA-C [address] [place] [address] PCP - General Physician Statistical Modeler 07/06/16 documented as of this encounter
--- OUTSIDE RECORDS SUMMARY | 2023-06-19 13:02 | XMS_ITS | Encounter Summary ---
Author Name Unknown Organization [facility] Address [address] [place] [address] Care Team Providers Care Drawer Fitter Name Role Phone Chirag Metzger PA-C Primary Care Provider [phone] Encounter Details Date Type Department Care Team Description 04/20/1997 Orders Only Morenita Fink MD [address] [place] [address] Social History Tobacco Use Types Packs/Day Years Used Date Smoking Tobacco: Never Assessed Sex and Gender Information Value Date Recorded Sex Assigned at Not on file Gender Identity Not on file Sexual Orientation Not on file documented as of this encounter Plan of Treatment Not on file documented as of this encounter Visit Diagnoses Not on filedocumented in this encounter Care Teams Drawer Fitter Relationship Specialty Start Date End Date Chirag Metzger PA-C [address] [place] [address] PCP - General Physician Singer And Unloader 07/06/16 documented as of this encounter
--- OUTSIDE RECORDS SUMMARY | 2023-06-19 13:02 | XMS_ITS | Encounter Summary ---
Author Name Unknown Organization [facility] Address [address] [place] [address] Care Team Providers Care Stage Set Up Worker Name Role Phone Chirag Metzger PA-C Primary Care Provider [phone] Encounter Details Date Type Department Care Team [...] on filedocumented in this encounter Care Teams Stage Set Up Worker Relationship Specialty Start Date End Date Chirag Metzger PA-C [address] [place] [address] PCP - General Physician University Controller 07/06/16 documented as of this encounter
--- OUTSIDE RECORDS SUMMARY | 2023-06-19 13:02 | XMS_ITS | Encounter Summary ---
Author Name Unknown Organization [facility] Address [address] [place] [address] Care Team Providers Care Meat Team Lead Name Role Phone Chirag Metzger PA-C Primary Care Provider [phone] Encounter Details Date Type Department Care Team Description 05/18/1997 Orders Only Isrrael Arias MD [address] [place] [address] Social History Tobacco Use Types Packs/Day Years Used Date Smoking Tobacco: Never Assessed Sex and Gender Information Value Date Recorded Sex Assigned at Not on file Gender Identity Not on file Sexual Orientation Not on file documented as of this encounter Plan of Treatment Not on file documented as of this encounter Visit Diagnoses Not on filedocumented in this encounter Care Teams Meat Team Lead Relationship Specialty Start Date End Date Chirag Metzger PA-C [address] [place] [address] PCP - General Physician Fire Claims Adjuster 07/06/16 documented as of this encounter
--- OUTSIDE RECORDS SUMMARY | 2023-06-19 13:02 | XMS_ITS | Encounter Summary ---
Author Name Unknown Organization [facility] Address [address] [place] [address] Care Team Providers Care Research Professor Of Biostatistics Name Role Phone Chirag Metzger PA-C Primary Care Provider [phone] Encounter Details Date Type Department Care Team Description 05/25/1997 Orders Only Hung uBrrows Social History Tobacco Use Types Packs/Day Years Used Date Smoking Tobacco: Never Assessed Sex and Gender Information Value Date Recorded Sex Assigned at Not on file Gender Identity Not on file Sexual Orientation Not on file documented as of this encounter Plan of Treatment Not on file documented as of this encounter Visit Diagnoses Not on filedocumented in this encounter Care Teams Research Professor Of Biostatistics Relationship Specialty Start Date End Date Chirag Metzger PA-C [address] [place] [address] PCP - General Physician Perfume Compounder 07/06/16 documented as of this encounter
--- OUTSIDE RECORDS SUMMARY | 2023-06-19 13:02 | XMS_ITS | Encounter Summary ---
Author Name Unknown Organization [facility] Address [address] [place] [address] Care Team Providers Care Mobile Paramedical Examiner Name Role Phone Chirag Metzger PA-C Primary Care Provider Encounter Details Date Type Department Care Team Description 11/05/1997 Orders Only Marco Schaffer [facility] [address] [facility], [id number] Social History Tobacco Use Types Packs/Day Years Used Date Smoking Tobacco: Never Assessed Sex and Gender Information Value Date Recorded Sex Assigned at Not on file Gender Identity Not on file Sexual Orientation Not on file documented as of this encounter Plan of Treatment Not on file documented as of this encounter Visit Diagnoses Not on filedocumented in this encounter Care Teams Mobile Paramedical Examiner Relationship Specialty Start Date End Date Chirag Metzger PA-C [address] [place] [address] PCP - General Physician Marine Extension Agent 07/06/16 documented as of this encounter
--- OUTSIDE RECORDS SUMMARY | 2023-06-19 13:02 | XMS_ITS | Encounter Summary ---
Author Name Unknown Organization [facility] Address [address] [place] [address] Care Team Providers Care Fluid Designer Name Role Phone Chirag Metzger PA-C Primary Care Provider Encounter Details Date Type Department Care Team Description 12/14/1995 Orders Only Julianna De Leon MD [address] [place] [address] Social History Tobacco Use Types Packs/Day Years Used Date Smoking Tobacco: Never Assessed Sex and Gender Information Value Date Recorded Sex Assigned at Not on file Gender Identity Not on file Sexual Orientation Not on file documented as of this encounter Plan of Treatment Not on file documented as of this encounter Visit Diagnoses Not on filedocumented in this encounter Care Teams Fluid Designer Relationship Specialty Start Date End Date Chirag Metzger PA-C [address] [place] [address] PCP - General Physician Enterprise Resource Planner 07/06/16 documented as of this encounter
--- OUTSIDE RECORDS SUMMARY | 2023-06-19 13:02 | XMS_ITS | Encounter Summary ---
Author Name Unknown Organization [facility] Address [address] [place] [address] Care Team Providers Care Sack Sewer Name Role Phone Chirag Metzger PA-C Primary Care Provider [phone] Encounter Details Date Type Department Care Team [...] on filedocumented in this encounter Care Teams Sack Sewer Relationship Specialty Start Date End Date Chirag Metzger PA-C [address] [place] [address] PCP - General Physician Tobacco Classer 07/06/16 documented as of this encounter
--- OUTSIDE RECORDS SUMMARY | 2023-06-19 13:02 | XMS_ITS | Encounter Summary ---
Author Name Unknown Organization [facility] Address [address] [place] [address] Care Team Providers Care Pinking Machine Operator Name Role Phone Chirag Metzger PA-C Primary Care Provider [phone] Encounter Details Date Type Department Care Team Description 10/22/1995 Orders Only Andrew Pappas MD [address] [place] [address] Social History Tobacco Use Types Packs/Day Years Used Date Smoking Tobacco: Never Assessed Sex and Gender Information Value Date Recorded Sex Assigned at Not on file Gender Identity Not on file Sexual Orientation Not on file documented as of this encounter Plan of Treatment Not on file documented as of this encounter Visit Diagnoses Not on filedocumented in this encounter Care Teams Pinking Machine Operator Relationship Specialty Start Date End Date Chirag Metzger PA-C [address] [place] [address] PCP - General Physician Bmw Service Technician 07/06/16 documented as of this encounter
--- OUTSIDE RECORDS SUMMARY | 2023-06-19 13:02 | XMS_ITS | Encounter Summary ---
Author Name Unknown Organization [facility] Address [address] [place] [address] Care Team Providers Care Senior Ios Developer Name Role Phone Chirag Metzger PA-C Primary Care Provider Encounter Details Date Type Department Care Team Description 08/12/1997 Orders Only Marco Schaffer [facility] [place] [address] [facility], [id number] Social History Tobacco Use Types Packs/Day Years Used Date Smoking Tobacco: Never Assessed Sex and Gender Information Value Date Recorded Sex Assigned at Not on file Gender Identity Not on file Sexual Orientation Not on file documented as of this encounter Plan of Treatment Not on file documented as of this encounter Visit Diagnoses Not on filedocumented in this encounter Care Teams Senior Ios Developer Relationship Specialty Start Date End Date Chirag Metzger PA-C [address] [place] [address] PCP - General Physician Route Jumper 07/06/16 documented as of this encounter
--- OUTSIDE RECORDS SUMMARY | 2023-06-19 13:02 | XMS_ITS | Encounter Summary ---
Author Name Unknown Organization [facility] Address [address] [place] [address] Care Team Providers Care Machinist Mechanic Name Role Phone Chirag Metzger PA-C Primary Care Provider Encounter Details Date Type Department Care Team Description 08/29/1994 Orders Only Sahil Plunkett, SINDI [facility] [place] [address] [place] [address] Social History Tobacco Use Types Packs/Day Years Used Date Smoking Tobacco: Never Assessed Sex and Gender Information Value Date Recorded Sex Assigned at Not on file Gender Identity Not on file Sexual Orientation Not on file documented as of this encounter Plan of Treatment Not on file documented as of this encounter Visit Diagnoses Not on filedocumented in this encounter Care Teams Machinist Mechanic Relationship Specialty Start Date End Date Chirag Metzger PA-C [address] [place] [address] PCP - General Physician Spikemaking Supervisor 07/06/16 documented as of this encounter
== END 2023-06-15 10:58 | disposition home or self-care (01) ==
LOC: NFLDREF 06-19 12:58
PROVIDERS: PCP Physician Assistant Medical; Referring Provider Physician Assistant Medical; Visit Provider Physician Assistant Medical
DX: I10 Essential (primary) hypertension (principal); Z11.1 Encounter for screening for respiratory tuberculosis; L65.9 Nonscarring hair loss, unspecified
CPT/HCPCS: 80053; 82306; 82607; 82670; 83540; 84403; 84443; 86480

== ENCOUNTER 2023-09-21 09:14 | Emergency (ER) | payer BC, SELFPAY ==
[2023-09-21] VITALS (11 sets, daily range): BP systolic 120–157; BP diastolic 58–86; PULSE 65–80; RESP 18; TEMP 36.4; O2SAT 96–100
--- NOTE | 2023-09-21 09:34 | ED_ITS ---
HPI - General Adult General Chief complaint: Abdominal Pain Stated complaint: abdominal/back pain Time Seen by Provider: 09/21/23 09:34 History of Present Illness HPI narrative: reports that she has not had a normal stool for a week. has lower abd pain than radiates to her back. has taken MiraLAX and Dulcolax. started to vomit today at 0130. has a headache with a hx of migraines 53-year-old woman presenting to the emergency department with complaint of increasing abdominal pain over this last week own siding also with less stool output. Noting very minimal output she really does not remember when the last normal stool was. Did have an episode of vomiting earlier this morning. Also has of left-sided parietal headache and left-sided neck area discomfort. Does have a history of migraines apparently and fibromyalgia. Notes a history of more than a year of alternating looser stools and constipation episodes. She does not have any dysuria. No fever. She did try some MiraLax yesterday and Dulcolax without notable result. Does admit to having history of diverticulitis but it has been many years ago. She has been having some discussion about having a colonic but has not had a colonoscopy yet - correction - in later questioning does confirm that has had a colonoscopy. History of endometritis and I believe this is the reason that she had hysterectomy and bilateral oophorectomy. Related Data Home Medications Medication Instructions Recorded Confirmed biotin 1 mg tablet 1 mg PO BID 01/04/22 08/23/23 cholecalciferol (vitamin D3) 1,250 50,000 unit PO DAILY 01/04/22 08/23/23 mcg (50,000 unit) capsule travoprost 0.004 % eye drops 1 drp ophthalmic (eye) QPM 01/05/22 08/23/23 brimonidine 0.2 %-timolol 0.5 % 1 drp ophthalmic (eye) BID 06/14/22 08/23/23 eye drops Shannon Root Herbal 550 mg PO 09/05/22 08/23/23 One A Day PO QDAY 09/05/22 08/23/23 Turmeric & Shannon with Bioperine 1,950 mg PO 09/05/22 08/23/23 Ultimate Hair Strength Katerinagrace Paiz PO 09/05/22 08/23/23 ascorbic acid (vitamin C) 1,000 mg 1 g PO QDAY 09/05/22 08/23/23 capsule cinnamon bark extract 500 mg tablet 1,000 mg PO 09/05/22 08/23/23 milk thistle 175 mg capsule 175 mg PO QDAY 09/05/22 08/23/23 pyridoxine (vitamin B6) PO 09/05/22 08/23/23 vitamin E (dl, acetate) 180 mg 180 mg PO QDAY 09/05/22 08/23/23 (400 unit) capsule Previous Rx's Medication Instructions Recorded cyclobenzaprine 10 mg tablet 10 mg PO BID #90 tabs 02/09/22 triamcinolone acetonide 0.1 % 1 applic topical BID #30 grams 02/13/22 topical cream diclofenac sodium 1 % topical gel 1 g topical BID #100 grams 04/14/22 (Arthritis Pain (diclofenac)) celecoxib 200 mg capsule 200 mg PO BID #180 caps 06/14/23 eletriptan 40 mg tablet 40 mg PO .PRN PRN migraine 06/14/23 headache #9 tabs hydroxyzine pamoate 25 mg capsule 25 - 50 mg (1 - 2 x 25 mg) PO QHS 06/14/23 PRN anxiety #60 caps minoxidil 2.5 mg tablet 2.5 mg PO QDAY #90 tabs 06/14/23 olmesartan 20 mg tablet 20 mg PO DAILY #90 tabs 06/14/23 tramadol 50 mg tablet 50 mg PO Q8H PRN pain #14 tabs 06/14/23 scopolamine base 1 mg over 3 days 1 patch transdermal Q3D PRN motion 06/18/23 transdermal patch sickness #4 ea folic acid 1 mg tablet 1 mg PO QDAY #90 tabs 07/26/23 ciprofloxacin HCl 500 mg tablet 500 mg PO BID 10 days #20 tabs 09/21/23 (Cipro) metronidazole 500 mg tablet 500 mg PO TID 10 days #30 tabs 09/21/23 ondansetron 4 mg disintegrating 4 mg PO Q4-6H For nausea/vomiting 09/21/23 tablet #12 tabs oxycodone-acetaminophen 5 mg-325 1 - 2 tab PO Q6H PRN pain #10 tabs 09/21/23 mg tablet (Percocet) Allergies Allergy/AdvReac Type Severity Reaction Status Date / Time hydrocodone AdvReac Intermediate Hot Verified 08/23/23 10:07 flashes, nausea Review of Systems Status of ROS: Reports: 6 or more systems reviewed and unremarkable except as noted in History and below [facility] Medical History (Updated 09/21/23 @ 14:10 by Deshawn Langley MD) Uveitis (2019) ?H20.9 - Unspecified iridocyclitis (ICD-10) Epigastric pain ?R10.13 - Epigastric pain (ICD-10) Endometriosis determined by laparoscopy ?N80.9 - Endometriosis, unspecified (ICD-10) Encounter for counseling regarding advance directives (05/25/16) ?Z71.89 - Other specified counseling (ICD-10) Surgical History Status post laparoscopic supracervical hysterectomy ?Z90.711 - Acquired absence of uterus with remaining cervical stump (ICD-10) Status post bilateral salpingo-oophorectomy (BSO) ?Z90.722 - Acquired absence of ovaries, bilateral (ICD-10) History of arthroscopy of left knee (2018) ?Z98.890 - Other specified postprocedural states (ICD-10) Family History Brother Breast cancer Systemic lupus erythematosus Sister Crohn's disease Glaucoma Systemic lupus erythematosus Mother Glaucoma High blood pressure Father Glaucoma High blood pressure Systemic lupus erythematosus Other Rheumatoid arthritis Social History Narrative: Non-smoker Smoking Status: Never smoker Do you use any of these nicotine containing products: None Second hand tobacco smoke exposure: No How often do you have a drink containing alcohol: monthly or less How many standard drinks containing alcohol do you have on a typical day: 1 or 2 AUDIT-C Alcohol total score: 1 Non-prescribed substance use: denies use Little interest or pleasure in doing things: not at all Feeling down, depressed, or hopeless: not at all service: No Exam Narrative: Exam Narrative: Pleasant. He looks uncomfortable moving her legs in this apparent discomfort. She has measured thoughtful in her conversation. Head is atraumatic. Cranial nerves 2-12 intact. She is sore to palpation in the left pericervical muscul ature and trapezial musculature. Heart in regular rate and rhythm without murmur rub or gallop. Abdomen with normoactive bowel sounds is soft and mildly tender across the low abdomen. No peritoneal signs. No flank pain. Extremities are well perfused without edema. Const: Vital Signs, click to edit/add: Vital Signs - 24 hr 09/21/23 09:23 09/21/23 11:55 09/21/23 12:00 Temperature 97.5 F L Pulse Rate 69 80 Pulse Rate [Pulse Oximeter] 73 Respiratory Rate 18 Blood Pressure Blood Pressure [Ri ght Upper Arm] 120/66 Pulse Oximetry 100 96 96 Oxygen Delivery Me thod Room Air 09/21/23 12:05 09/21/23 12:15 09/21/23 12:30 Temperature Pulse Rate 78 65 69 Pulse Rate [Pulse Oximeter] Respiratory Rate Blood Pressure Blood Pressure [Ri ght Upper Arm] Pulse Oximetry 96 99 99 Oxygen Delivery Me thod 09/21/23 12:31 09/21/23 12:45 09/21/23 13:00 Temperature Pulse Rate 67 74 71 Pulse Rate [Pulse Oximeter] Respiratory Rate Blood Pressure 136/58 L Blood Pressure [Ri ght Upper Arm] Pulse Oximetry 100 98 97 Oxygen Delivery Me thod 09/21/23 13:02 09/21/23 13:15 Temperature Pulse Rate 71 67 Pulse Rate [Pulse Oximeter] Respiratory Rate Blood Pressure 157/86 H Blood Pressure [Ri ght Upper Arm] Pulse Oximetry 97 100 Oxygen Delivery Me thod Documenting provider has reviewed patient's vital signs: yes Course Vital Signs Vital signs: Initial Vital Signs Temperature 97.5 F L 09/21/23 09:23 Temperature Source Temporal Artery Scan 09/21/23 09:23 Pulse Rate 73 09/21/23 09:23 Pulse Rhythm Regular 09/21/23 09:23 Respiratory Rate 18 09/21/23 09:23 Blood Pressure 120/66 09/21/23 09:23 Blood Pressure Mean 84 09/21/23 09:23 Blood Pressure Position Supine 09/21/23 09:23 Pulse Oximetry 100 09/21/23 09:23 Oxygen Delivery Method Room Air 09/21/23 09:23 Vital Signs Temperature 97.5 F L 09/21/23 09:23 Pulse Rate 73 09/21/23 09:23 Respiratory Rate 18 09/21/23 09:23 Blood Pressure 120/66 09/21/23 09:23 Pulse Oximetry 100 09/21/23 09:23 Oxygen Delivery Method Room Air 09/21/23 09:23 Temperature 97.5 F L 09/21/23 09:23 Pulse Rate 67 09/21/23 13:15 Respiratory Rate 18 09/21/23 09:23 Blood Pressure 157/86 H 09/21/23 13:02 Pulse Oximetry 100 09/21/23 13:15 Oxygen Delivery Method Room Air 09/21/23 09:23 Medications Administered Medications: Discontinued Medications Generic Name Dose Route Start Last Admin Trade Name Freq PRN Reason Stop Dose Admin Glycerin 1 supp 09/21/23 14:15 09/21/23 15:10 Glycerin Supp (Adult) KS 09/21/23 14:16 1 supp ONCE ONE Administration Hyoscyamine 0.25 mg 09/21/23 09:53 09/21/23 10:36 Hyoscyamine Sulfate 0.125 Mg Tab SUBLINGUAL 09/21/23 09:54 0.25 mg ONCE ONE Administration Sodium Chloride 1,000 mls @ 1,000 mls/hr 09/21/23 09:53 09/21/23 12:30 0.9 % Sodium Chloride 1000 Ml IV 09/21/23 10:52 Infused .Q1H ONE Infusion Ketamine HCl 20 mg/ Sodium 100.2 mls @ 200.4 mls/hr 09/21/23 11:59 09/21/23 13:05 Chloride IVPB 09/21/23 12:00 Infused ONCE ONE Infusion Ampicillin Sodium/Sulbactam 100 mls @ 200 mls/hr 09/21/23 12:11 09/21/23 14:45 Sodium 3 gm/ Sodium Chloride IVPB 09/21/23 12:12 Infused ONCE ONE Infusion Lactated Ringer's 1,000 mls @ 1,000 mls/hr 09/21/23 12:28 09/21/23 14:14 Lactated Ringers 1000 Ml IV 09/21/23 13:27 Infused .Q1H ONE Infusion Ketorolac Tromethamine 15 mg 09/21/23 09:53 09/21/23 10:34 Ketorolac 15 Mg/Ml Inj IVP 09/21/23 09:54 15 mg ONCE ONE Administration Ketorolac Tromethamine 30 mg 09/21/23 11:34 09/21/23 11:59 Ketorolac 30 Mg/Ml Inj IVP 09/21/23 11:35 Not Given ONCE ONE Morphine Sulfate 4 mg 09/21/23 09:53 09/21/23 10:32 Morphine 4 Mg/Ml Inj IVP 09/21/23 09:54 4 mg ONCE ONE Administration Ondansetron HCl 4 mg 09/21/23 13:09 09/21/23 13:15 Ondansetron 2 Mg/Ml Inj IVP 09/21/23 13:10 4 mg ONCE ONE Administration Medical Decision Making MDM Narrative Medical decision making narrative: Symptoms are not inconsistent with constipation related pain. I think less likely to have a bowel obstruction. Diverticulitis could be in differential. Would be bit of a set up for obstruction though given history of endometriosis. She has had hysterectomy and bilateral oophorectomy. Unlikely torsion. Will try to give her some pain relief. Treat her headache. Initially would do a x-ray of the abdomen to evaluate stool/gas pattern. Look for red flags in the labs and symptom improvement to warrant further workup/imaging. Two-view abdominal x-ray reviewed by me without air-fluid levels or other pattern that might indicate obstruction or ileus. Does however have a good deal of stool throughout the colon. Ordered for IV fluids and initial dose of morphine. Also ketorolac and hyoscyamine. Still with pain particularly headache was given a ketamine infusion. Became nauseated given Zofran. On reassessment is finally overall improved. White count mildly elevated though with moderately elevated CRP. I think it would be prudent to image abdomen further with consideration of differential as above. I did review images of CT abdomen and pelvis. Indeed IV contrasted CT of abdomen and pelvis with inflammatory changes evident that would suggest diverticulitis in addition to colonic stool. Radiology over-read as below Study:?CT-Abdomen/Pelvis W/ 98CC [id number] 11:41:50 AM Ordering Physician:?Deshawn Langley Final Report: INDICATION: General abdomen pain, elevated CRP, constipation TECHNIQUE: CT abdomen and pelvis with 98 cc ISOVUE 370 IV contrast. COMPARISON: None. FINDINGS: The liver is normal in size, shape and attenuation. Gallbladder and biliary tree are normal. The spleen, adrenal glands and pancreas are within normal limits. The kidneys are unremarkable. No evidence of bowel obstruction. Marked wall thickening and severe sigmoid colon diverticular inflammation. Findings most compatible with severe acute sigmoid diverticulitis. No evidence of free air. Moderate volume surrounding free fluid extending to the pelvis without rim enhancement to suggest abscess. Acute diverticulitis involving the sigmoid colon comes very close to the cecum and left posterior dome of the bladder. There is maintained fat plane but there may be early tethering to both of these structures. Recommend attention on follow-up. Mild stool burden throughout the colon. The appendix is mildly dilated but remains air-filled. No evidence of free air. The lower chest is unremarkable. IMPRESSION: Marked wall thickening and severe sigmoid colon diverticular inflammation. Findings most compatible with severe acute sigmoid diverticulitis. No evidence of free air. Moderate volume surrounding free fluid extending to the pelvis without rim enhancement to suggest abscess. Acute diverticulitis involving the sigmoid colon comes very close to the cecum and left posterior dome of the bladder. There is maintained fat plane but there may be early tethering to both of these structures. Recommend attention on follow-up. Mildly prominent round pericolonic sigmoid lymph nodes which are nonspecific and may be reactive. Recommend colonoscopy following treatment and symptom resolution to exclude underlying sigmoid lesion. I discussed these findings with Ms. Ward. Pain is improved, including headache and with stable vitals. Have ordered for IV dose of Unasyn. And will be continuing with ciprofloxacin and metronidazole as outpatient. I have not been able to locate results of colonoscopy that she notes has already had. See patient discharge plan for further discussion Lab Data Lab results reviewed: Yes I reviewed the patient's lab results Labs: Lab Results 09/21/23 09/21/23 09/21/23 Range/Units 10:25 10:25 10:25 WBC 12.33 H (4.50-11.00) K/uL RBC 4.18 (4.00-5.20) m/uL Hgb 12.2 (12.0-16.0) gm/dL Hct 38.5 (33.0-51.0) % MCV 92 (80-100) fL MCH 29 (26-34) pg MCHC 32 (32-36) gm/dL RDW Coeff of [place] 12.3 (11.5-15.5) % Plt Count 272 (140-440) K/uL Neut % (Auto) 68.6 (42.0-72.0) % Lymph % (Auto) 25.6 (20-44) % Monroe % (Auto) 5.0 (0.0-11.0) % Eos % (Auto) 0.4 (0.0-7.0) % Baso % (Auto) 0.2 (0.0-3.0) % Neut # (Auto) 8.50 H (1.7-7.0) K/uL Lymph # (Auto) 3.20 H (0.90-2.90) K/uL Monroe # (Auto) 0.60 (0.00-0.90) K/UL Eos # (Auto) 0.00 (0.00-0.50) K/uL Baso # (Auto) 0.00 (0.00-0.30) K/uL Abs Immat Gran (auto) 0.00 (0.00-0.30) K/uL Imm/Tot Granulo (auto) 0.2 % Sodium 138 (135-149) mmol/L Potassium 3.5 L (3.6-5.1) mmol/L Chloride 102 (96-114) mmol/L Carbon Dioxide 29 (20-32) mmol/L Anion Gap 7 (7-15) mEq/L BUN 8 (7-30) mg/dL Creatinine 0.7 (0.5-1.5) mg/dL Estimated GFR 103 ml/min Glucose 96 (60-115) mg/dL Calcium 9.0 (8.4-10.6) mg/dL Total Bilirubin 1.8 H Cancelled (0.1-1.5) mg/dL Direct Bilirubin 0.0 Cancelled (0.0-0.5) mg/dL AST 20 (12-35) U/L ALT (4-35) U/L Alkaline Phosphatase (40-150) U/L C-Reactive Protein (0.5-1.0) mg/dL Total Protein (6.0-8.3) g/dL Albumin (3.3-5.0) g/dL Lipase (23-300) U/L 09/21/23 09/21/23 09/21/23 Range/Units 10:25 10:25 10:25 WBC (4.50-11.00) K/uL RBC (4.00-5.20) m/uL Hgb (12.0-16.0) gm/dL Hct (33.0-51.0) % MCV (80-100) fL MCH (26-34) pg MCHC (32-36) gm/dL RDW Coeff of [place] (11.5-15.5) % Plt Count (140-440) K/uL Neut % (Auto) (42.0-72.0) % Lymph % (Auto) (20-44) % Monroe % (Auto) (0.0-11.0) % Eos % (Auto) (0.0-7.0) % Baso % (Auto) (0.0-3.0) % Neut # (Auto) (1.7-7.0) K/uL Lymph # (Auto) (0.90-2.90) K/uL Monroe # (Auto) (0.00-0.90) K/UL Eos # (Auto) (0.00-0.50) K/uL Baso # (Auto) (0.00-0.30) K/uL Abs Immat Gran (auto) (0.00-0.30) K/uL Imm/Tot Granulo (auto) % Sodium (135-149) mmol/L Potassium (3.6-5.1) mmol/L Chloride (96-114) mmol/L Carbon Dioxide (20-32) mmol/L Anion Gap (7-15) mEq/L BUN (7-30) mg/dL Creatinine (0.5-1.5) mg/dL Estimated GFR ml/min Glucose (60-115) mg/dL Calcium (8.4-10.6) mg/dL Total Bilirubin (0.1-1.5) mg/dL Direct Bilirubin (0.0-0.5) mg/dL AST Cancelled (12-35) U/L ALT 13 Cancelled (4-35) U/L Alkaline Phosphatase 68 Cancelled (40-150) U/L C-Reactive Protein 13.4 H (0.5-1.0) mg/dL Total Protein 7.2 (6.0-8.3) g/dL Albumin (3.3-5.0) g/dL Lipase (23-300) U/L 09/21/23 09/21/23 09/21/23 Range/Units 10:25 10:25 10:25 WBC (4.50-11.00) K/uL RBC (4.00-5.20) m/uL Hgb (12.0-16.0) gm/dL Hct (33.0-51.0) % MCV (80-100) fL MCH (26-34) pg MCHC (32-36) gm/dL RDW Coeff of [place] (11.5-15.5) % Plt Count (140-440) K/uL Neut % (Auto) (42.0-72.0) % Lymph % (Auto) (20-44) % Monroe % (Auto) (0.0-11.0) % Eos % (Auto) (0.0-7.0) % Baso % (Auto) (0.0-3.0) % Neut # (Auto) (1.7-7.0) K/uL Lymph # (Auto) (0.90-2.90) K/uL Monroe # (Auto) (0.00-0.90) K/UL Eos # (Auto) (0.00-0.50) K/uL Baso # (Auto) (0.00-0.30) K/uL Abs Immat Gran (auto) (0.00-0.30) K/uL Imm/Tot Granulo (auto) % Sodium (135-149) mmol/L Potassium (3.6-5.1) mmol/L Chloride (96-114) mmol/L Carbon Dioxide (20-32) mmol/L Anion Gap (7-15) mEq/L BUN (7-30) mg/dL Creatinine (0.5-1.5) mg/dL Estimated GFR ml/min Glucose (60-115) mg/dL Calcium (8.4-10.6) mg/dL Total Bilirubin (0.1-1.5) mg/dL Direct Bilirubin (0.0-0.5) mg/dL AST (12-35) U/L ALT (4-35) U/L Alkaline Phosphatase (40-150) U/L C-Reactive Protein (0.5-1.0) mg/dL Total Protein Cancelled (6.0-8.3) g/dL Albumin 4.0 Cancelled (3.3-5.0) g/dL Lipase 40 Cancelled (23-300) U/L Discharge Plan Discharge Clinical Impression: Diverticulitis, Migraine, Constipation Patient Disposition: Home w/ Parent or Adult Condition: Improved Additional Instructions: Be sure to stay well-hydrated. Begin taking MiraLax equivalent in at least 8 oz of liquid 2-3 times daily adjusting to stool consistency. I do think though that you will need to work on the lower end as well. I would try to help that in the short term with suppositories or enemas. We are sending you with a glycerin suppository that you can place overnight. I would consider placing an enema and repeating in an hour if no good result. You could do this and wait for result before placing suppository or let the suppository work overnight and use the enemas in the morning if still necessary. I have prescribed Percocet from [facility] along with ciprofloxacin and metronidazole. Also Zofran for nausea. I would combine/pair the Percocet with senna should you need the former for pain control. The senna should help move your bowels. Please start the antibiotics when you get home. We gave you a dose of Unasyn (antibiotic) here. I am concerned that you are having some evidence of increased adhesions/scarring in your low abdomen that might contribute to further difficulty. I would discuss this possibility in follow-up with your doctor. Once you are feeling better, remember that a little heart pumping exercise every day does help control headaches, particularly those with a tension component, and keep our bowels moving. Prescriptions: New metronidazole 500 mg tablet 500 mg PO TID 10 Days Qty: 30 0RF ciprofloxacin HCl [Cipro] 500 mg tablet 500 mg PO BID 10 Days Qty: 20 0RF oxycodone-acetaminophen [Percocet] 5-325 mg tablet 1 - 2 tab PO Q6H PRN (Reason: pain) Qty: 10 0RF ondansetron 4 mg tablet,disintegrating 4 mg PO Q4-6H Qty: 12 0RF No Action celecoxib 200 mg capsule 200 mg PO BID Qty: 180 3RF eletriptan 40 mg tablet 40 mg PO .PRN PRN (Reason: migraine headache) Qty: 9 3RF olmesartan 20 mg tablet 20 mg PO DAILY Qty: 90 3RF Rx Instructions: Once daily for blood pressure tramadol 50 mg tablet 50 mg PO Q8H PRN (Reason: pain) Qty: 14 0RF hydroxyzine pamoate 25 mg capsule 25 - 50 mg PO QHS PRN (Reason: anxiety ) Qty: 60 1RF Rx Instructions: 1-2 capsules in the evening for anxiety and sleep aide minoxidil 2.5 mg tablet 2.5 mg PO QDAY Qty: 90 0RF Rx Instructions: once daily for hair thinning cholecalciferol (vitamin D3) 1,250 mcg (50,000 unit) capsule 50,000 unit PO DAILY biotin 1 mg tablet 1 mg PO BID travoprost 0.004 % drops 1 drp ophthalmic (eye) QPM brimonidine-timolol 0.2-0.5 % drops 1 drp ophthalmic (eye) BID folic acid 1 mg tablet 1 mg PO QDAY Qty: 90 3RF cyclobenzaprine 10 mg tablet 10 mg PO BID Qty: 90 2RF triamcinolone acetonide 0.1 % cream 1 applic topical BID Qty: 30 1RF diclofenac sodium [Arthritis Pain (diclofenac)] 1 % gel 1 g topical BID Qty: 100 1RF Shannon Root Herbal 550 mg capsule 550 mg PO One A Day PO QDAY milk thistle 175 mg capsule 175 mg PO QDAY Turmeric & Shannon with Bioperine 1,950 mg 1,950 mg PO Ultimate Hair Strength Katerina Girdebora PO pyridoxine (vitamin B6) PO vitamin E (dl, acetate) 180 mg (400 unit) capsule 180 mg PO QDAY ascorbic acid (vitamin C) 1,000 mg capsule 1 g PO QDAY cinnamon bark extract 500 mg tablet 1,000 mg PO scopolamine base 1 mg over 3 days patch 3 day 1 patch transdermal Q3D PRN (Reason: motion sickness) Qty: 4 0RF Rx Instructions: Change patch every 3 days p.r.n. For motion sickness Follow Up/Referrals: Simona Mendez PA-C [Primary Care Provider] - Stand Alone Forms: [facility] Info Instructions
--- NOTE | 2023-09-21 09:54 | XR_ITS ---
Patient: KATERINA LA Facility:?[facility] Patient ID:?[id number] Site Patient ID:?[id number]. Site :?[id number] Study:?XRay-Abdomen flat/upright-09/21/2023 10:51:18 AM Ordering Physician:?Deshawn Langley Final Report: Indication: General abdominal pain Technique: Abdomen 2 view, four views Comparison: Abdomen 06/21/2023 Findings/Impression: Bowel: Moderate amount of stools in the colon. Small bowel loops within the left abdomen are upper normal in caliber without dilated loops of large or small intestine. Soft tissues: Phleboliths redemonstrated within the left hemipelvis. Bones: Unremarkable for age. Dictated by Chester Rivera MD @ 09/21/2023 11:04:45 AM Signed by:?Chester Rivera MD @09/21/2023 11:04:45 AM (Electronic Signature)
--- OUTSIDE RECORDS SUMMARY | 2023-09-21 09:58 | XMS_ITS | Encounter Summary ---
Author Name Unknown Organization [facility] Address [address] [place] [address] Care Team Providers Care Vp Integration Name Role Phone Chirag Metzger PA-C Primary Care Provider [phone] Encounter Details Date Type Department Care Team (Latest Contact Info) Description 01/06/2000 Orders Only Luis Fernando Dc MD [address] [place] [address] [place] [id number] Social History Tobacco Use Types Packs/Day Years Used Date Smoking Tobacco: Never Assessed Sex and Gender Information Value Date Recorded Sex Assigned at Not on file Gender Identity Not on file Sexual Orientation Not on file documented as of this encounter Plan of Treatment Not on file documented as of this encounter Visit Diagnoses Not on filedocumented in this encounter Care Teams Vp Integration Relationship Specialty Start Date End Date Chirag Metzger PA-C [address] [place] [address] PCP - General Physician Fleet Salesperson 07/06/16 documented as of this encounter
--- OUTSIDE RECORDS SUMMARY | 2023-09-21 09:58 | XMS_ITS | Encounter Summary ---
Author Name Unknown Organization [facility] Address [address] [place] [address] Care Team Providers Care Still Cleaner Tube Name Role Phone Chirag Metzger PA-C Primary Care Provider [phone] Encounter Details Date Type Department Care Team (Latest Contact Info) Description 10/22/1995 Orders Only Andrew Pappas MD [address] [place] [address] Social History Tobacco Use Types Packs/Day Years Used Date Smoking Tobacco: Never Assessed Sex and Gender Information Value Date Recorded Sex Assigned at Not on file Gender Identity Not on file Sexual Orientation Not on file documented as of this encounter Plan of Treatment Not on file documented as of this encounter Visit Diagnoses Not on filedocumented in this encounter Care Teams Still Cleaner Tube Relationship Specialty Start Date End Date Chirag Metzger PA-C [address] [place] [address] PCP - General Physician Char Filter Operator Helper 07/06/16 documented as of this encounter
--- OUTSIDE RECORDS SUMMARY | 2023-09-21 09:58 | XMS_ITS | Encounter Summary ---
Author Name Unknown Organization [facility] Address [address] [place] [address] Care Team Providers Care Traffic Clerk Name Role Phone Chirag Metzger PA-C Primary Care Provider [phone] Encounter Details Date Type Department Care Team (Latest Contact Info) Description 12/16/1999 Orders Only [facility], [place] [address] Social History Tobacco Use Types Packs/Day Years Used Date Smoking Tobacco: Never Assessed Sex and Gender Information Value Date Recorded Sex Assigned at Not on file Gender Identity Not on file Sexual Orientation Not on file documented as of this encounter Plan of Treatment Not on file documented as of this encounter Visit Diagnoses Not on filedocumented in this encounter Care Teams Traffic Clerk Relationship Specialty Start Date End Date Chirag Metzger PA-C [address] [place] [address] PCP - General Physician Brusher 07/06/16 documented as of this encounter
--- OUTSIDE RECORDS SUMMARY | 2023-09-21 09:58 | XMS_ITS | Encounter Summary ---
Author Name Unknown Organization [facility] Address [address] [place] [address] Care Team Providers Care Junior Linux Administrator Name Role Phone Chirag Metzger PA-C Primary Care Provider [phone] Encounter Details Date Type Department Care Team (Latest Contact Info) Description 07/01/1999 Orders Only Keya Gay MD [address] [place] [address] Social History Tobacco Use Types Packs/Day Years Used Date Smoking Tobacco: Never Assessed Sex and Gender Information Value Date Recorded Sex Assigned at Not on file Gender Identity Not on file Sexual Orientation Not on file documented as of this encounter Plan of Treatment Not on file documented as of this encounter Visit Diagnoses Not on filedocumented in this encounter Care Teams Junior Linux Administrator Relationship Specialty Start Date End Date Chirag Metzger PA-C [address] [place] [address] PCP - General Physician Ore Crushing Dust Collector 07/06/16 documented as of this encounter
--- OUTSIDE RECORDS SUMMARY | 2023-09-21 09:58 | XMS_ITS | Encounter Summary ---
Author Name Unknown Organization [facility] Address [address] [place] [address] Care Team Providers Care High School Sports Coach Name Role Phone Chirag Metzger PA-C Primary Care Provider [phone] Encounter Details Date Type Department Care Team (Late st Contact Info) Description 09/17/2012 Correspondence [facility] [address] [place] [place] [address] Enoc Blanca DC CHIROPRACTIC PT LIABILITY [...] on filedocumented in this encounter Care Teams High School Sports Coach Relationship Specialty Start Date End Date Chirag Metzger PA-C [facility] [address] [address] PCP - General Physician Car Examiner 07/06/16 documented as of this encounter
--- OUTSIDE RECORDS SUMMARY | 2023-09-21 09:58 | XMS_ITS | Encounter Summary ---
Author Name Unknown Organization [facility] Address [address] [place] [address] Care Team Providers Care Corporate Paralegal Name Role Phone Chirag Metzger PA-C Primary Care Provider [phone] Encounter Details Date Type Department Care Team (Latest Contact Info) Description 11/03/1999 Orders Only Keya Gay MD [address] [place] [address] Social History Tobacco Use Types Packs/Day Years Used Date Smoking Tobacco: Never Assessed Sex and Gender Information Value Date Recorded Sex Assigned at Not on file Gender Identity Not on file Sexual Orientation Not on file documented as of this encounter Plan of Treatment Not on file documented as of this encounter Visit Diagnoses Not on filedocumented in this encounter Care Teams Corporate Paralegal Relationship Specialty Start Date End Date Chirag Metzger PA-C [address] [place] [address] PCP - General Physician Audience Coordinator 07/06/16 documented as of this encounter
--- OUTSIDE RECORDS SUMMARY | 2023-09-21 09:58 | XMS_ITS | Encounter Summary ---
Author Name Unknown Organization [facility] Address [address] [place] [address] Care Team Providers Care Low Pressure Kettle Operator Name Role Phone Chirag Metzger PA-C Primary Care Provider Encounter Details Date Type Department Care Team (Latest Contact Info) Description 08/12/1997 Orders Only Marco Schaffer [facility] [address] [facility], [id number] Social History Tobacco Use Types Packs/Day Years Used Date Smoking Tobacco: Never Assessed Sex and Gender Information Value Date Recorded Sex Assigned at Not on file Gender Identity Not on file Sexual Orientation Not on file documented as of this encounter Plan of Treatment Not on file documented as of this encounter Visit Diagnoses Not on filedocumented in this encounter Care Teams Low Pressure Kettle Operator Relationship Specialty Start Date End Date Chirag Metzger PA-C [address] [place] [address] PCP - General Physician Display Coordinator 07/06/16 documented as of this encounter
--- OUTSIDE RECORDS SUMMARY | 2023-09-21 09:58 | XMS_ITS | Encounter Summary ---
Author Name Unknown Organization [facility] Address [address] [place] [address] Care Team Providers Care Benefits Consulting Analyst Name Role Phone Chirag Metzger PA-C Primary Care Provider [phone] Encounter Details Date Type Department Care Team (Latest Contact Info) Description 04/20/1997 Orders Only Morenita Fink MD [address] [place] [address] Social History Tobacco Use Types Packs/Day Years Used Date Smoking Tobacco: Never Assessed Sex and Gender Information Value Date Recorded Sex Assigned at Not on file Gender Identity Not on file Sexual Orientation Not on file documented as of this encounter Plan of Treatment Not on file documented as of this encounter Visit Diagnoses Not on filedocumented in this encounter Care Teams Benefits Consulting Analyst Relationship Specialty Start Date End Date Chirag Metzger PA-C [address] [place] [address] PCP - General Physician Molder Apprentice 07/06/16 documented as of this encounter
--- OUTSIDE RECORDS SUMMARY | 2023-09-21 09:58 | XMS_ITS | Encounter Summary ---
Author Name Unknown Organization [facility] Address [address] [place] [address] Care Team Providers Care Supervisor Laundry Name Role Phone Chirag Metzger PA-C Primary Care Provider [phone] Encounter Details Date Type Department Care Team (Latest Contact Info) Description 10/28/1998 Orders Only Princess Grover Social [...] filedocumented in this encounter Care Teams Supervisor Laundry Relationship Specialty Start Date End Date Chirag Metzger PA-C [address] [place] [address] PCP - General Physician Tube Rebuilder 07/06/16 documented as of this encounter
--- OUTSIDE RECORDS SUMMARY | 2023-09-21 09:58 | XMS_ITS | Encounter Summary ---
Author Name Unknown Organization [facility] Address [address] [place] [address] Care Team Providers Care Timber Feller Name Role Phone Chirag Metzger PA-C Primary Care Provider [phone] Encounter Details Date Type Department Care Team (Late st Contact Info) Description 10/31/2011 Correspondence [facility] [address] [place] [id number] Enoc Blanca DC CHIROPRACTIC PT LIABILITY [...] on filedocumented in this encounter Care Teams Timber Feller Relationship Specialty Start Date End Date Chirag Metzger PA-C [address] [place] [address] PCP - General Physician Gardening Manager 07/06/16 documented as of this encounter
--- OUTSIDE RECORDS SUMMARY | 2023-09-21 09:58 | XMS_ITS | Encounter Summary ---
Author Name Unknown Organization [facility] Address [address] [place] [address] Care Team Providers Care Chief Vendor Quality Name Role Phone Chirag Metzger PA-C Primary Care Provider [phone] Encounter Details Date Type Department Care Team (Latest Contact Info) Description 09/02/1999 Orders Only Andrew Pappas MD [address] [place] [address] Social History Tobacco Use Types Packs/Day Years Used Date Smoking Tobacco: Never Assessed Sex and Gender Information Value Date Recorded Sex Assigned at Not on file Gender Identity Not on file Sexual Orientation Not on file documented as of this encounter Plan of Treatment Not on file documented as of this encounter Visit Diagnoses Not on filedocumented in this encounter Care Teams Chief Vendor Quality Relationship Specialty Start Date End Date Chirag Metzger PA-C [address] [place] [address] PCP - General Physician Product Marketer 07/06/16 documented as of this encounter
--- OUTSIDE RECORDS SUMMARY | 2023-09-21 09:58 | XMS_ITS | Clinical Summary ---
Author Name Unknown Organization [facility] Address [address] [place] [address] Care Team Providers Care Cell Liner Name Role Phone Chirag Metzger PA-C Primary Care Provider [phone] Source Comments You are receiving this document as you are listed as the primary care provider,follow-up provider, or the patient has been referred to you for consultation.This is in compliance with the Medicare and[facility] Hospital[facility] EHR Incentive Program,which states Providers who transition their patient to another setting of careor provider of care or refers their patient to another provider of care shouldprovide summary care record for each transition of care or referral. [facility] Direct Allergies No known active allergies Medications Medication Sig Dispensed Refills Start Date End Date Status hydrochlorothiazid e 12.5 MG capsuleIndications :JANE UMAÑA SunJul 21, 2015 10:44 AM Received from: External Pharmacy Indications: PN: JANE UMAÑA SunJul 21, 2015 10:44 AM Received from: External Pharmacy 2 07/07/2015 Active latanoprost (XALATAN) 0.005 % eye drop solution 1 Drop every evening. Active COMBIGAN 0.2-0.5 % eye drop solution 99 09/01/2018 Active DULoxetine (CYMBALTA) 20 MG capsuleIndications :Chronic pain of left knee Take 2 Capsules by mouth daily. 60 Capsule 02/14/2019 Active celecoxib (CELEBREX) 100 MG capsule Take 1 Capsule by mouth two times a day. 180 Capsule 02/14/2019 Active lisinopril (ZESTRIL) 10 MG tablet take one tablet (10 MG) by mouth DAILY Take 1 tab in addition to already prescribed 10 mg; for a total of 30 mg per day 01/21/2021 Active lidocaine (LIDODERM) 5 % patch Apply 1 Patch to skin daily. Leave on for up to 12 hours in a 24 hour period, then remove. 02/16/2021 Active traMADol (ULTRAM) 50 MG tablet Take by mouth. 03/07/2022 Active gabapentin (NEURONTIN) 600 MG tablet [...] and light sensitivity. She was seen at [facility] on 01/28/2014, and was [...] yrs) 04/10/2000 Influenza IIV4 (Quadrivalent ) 0.5mL (63215) 04/05/2017,03/02/2015,02/02/2015,2013 Influenza, Unspecified Formulation 04/14/2016(De ferred: Other),03/04/2013 [...] 156.2 cm (5' 1.5) 07/06/2016 8:17 AM [facility] Body Mass Index 39.41 07/06/2016 8:17 AM [facility] Plan of Treatment Health Maintenance Due Date Last Done Comments Colonoscopy 1969 Hep C Screening (Preventive Services) 1969 HIV Screening (Preventive Services) 1985 HepB (1) 1988 Adult Preventive Visit 03/06/2019 8, 07/06/2016, 12/19/2000, Additional history exists Zoster/Shingles (1 of 2) 2019 Mammogram 03/20/2019 03/20/2018, 10/0 08/2016, 02/02/2016, Additional history exists Cervical Cancer Screening 03/06/20212017, 01/13/2015, 02/13/2013, Additional history exists DTaP/Tdap/Td (3 - Tdap) 08/16/2021 08/17/19 12, 08/17/2011, 05/20/1995 COVID-19 Vaccine ( season) 2023 05/03/2021, 06/22/2020, 06/01/2020 Cholesterol 03/06/2023 03/06/2018, 06/21, 01/13/2015, Additional history exists Influenza (Season Ended) 2024 022, 04/05/2017, 04/14/2016, Additional history exists HepA Aged Out No [...] on patient's age to complete this topic Procedures Procedure Name Priority Date/Time Associated Diagnosis Comments MM MAMMOGRAM SCREENING BILAT W CAD Routine 03/20/2018 9:02 AM CDT Visit for screening LIPID PANEL & DIRECT LDL (IF NEEDED) Routine 03/06/2018 3:12 PM CDT Annual physical exam ANATOMICAL PATH LIQUID BASED Routine 03/06/2018 2:57 PM CDT from Last 3 Months or Most Recently Relevant to Health Maintenance Results * MM Mammogram Screening Bilat W CAD (03/20/2018 9:02 AM CDT) Anatomical Region Laterality Modality Breast Bilateral Mammography Impressions 03/20/2018 10:52 AM CDT : ACR BI-RADS Category 1: Negative RECOMMENDATION: Follow Up Imaging in 12 months - Bilateral The results and recommendations of this examination will be communicated to the patient. Narrative 03/20/2018 10:52 AM CDT MM MAMMOGRAM SCREENING BILAT W CAD performed on 03/20/18 Compared to: 02/21/2017 MM Mammogram Screening Bilat W CAD, 02/02/2016 MM Mammogram Screening Bilat W CAD, and 01/13/2015 MM Mammogram Screening Bilat W CAD FINDINGS: Bilateral screening mammogram was performed with the assistance of Computer-Aided Detection. The breasts have scattered areas of fibroglandular density. There is no radiographic evidence of malignancy. ?? Chirag Metzger PA-C RAD KVNG * (ABNORMAL) Lipid Panel - LDLD If Trig High (03/06/2018 3:12 PM CDT) Cholesterol 203(H) 0 - 199 mg/dL PN SOFT Triglycerides 100 4 - 149 mg/dL PN SOFT HDL Cholesterol 49 >39 mg/dL PN SOFT Cholesterol/HDL Ratio Screen 4.1 PN SOFT LDL Calculated 134(H) 19 - 130 mg/dL PN SOFT Non HDL Chol, Calc 154 0 - 159 mg/dL PN SOFT Hours Fasting 0.0 PN SOFT 03/06/2018 3:12 PM CDT 03/06/2018 4:51 PM CDT Narrative PN SOFT - 03/06/2018 6:59 PM CDT Performed at [facility], [address] [place] [address] CLIA number [id number] Chirag Metzger PA-C LAB_1 Performing Organization Address [facility] Co de Phone Number PN SOFT [address] [place], [place] [address] * Pap Smear (03/06/2018 2:57 PM CDT) 03/06/2018 2:57 PM CDT Narrative PN SOFT - 03/23/2018 9:23 AM CDT FINAL GYNECOLOGICAL CYTOLOGY REPORT Pathology #: [id number] ?Date Obtained: 03/06/2018 ? Date Received: 03/07/2018 INTERPRETATION/RESULTS: Negative for Intraepithelial Lesion or Malignancy. SPECIMEN ADEQUACY: Satisfactory for Evaluation. ??Endocervical cells/transformation zone component present. Verified on 03/18/2018 ??by STAN CLEARY(ASCP) (electronic signature) CLINICAL NOTES: ?Abnormal bleeding: No, LMP: s/p supracervic, Menstrual status: ?Hysterectomy, Current form of therapy: None apply LIQUID BASED PAP SMEAR SPECIMEN TYPE: ?ROUTINE CERVICAL PAP TEST PLEASE NOTE: The pap smear is a screening test designed to aid in the detection of cervical cancer and its precursor lesions. It is not a diagnostic procedure and should not be used as the sole means of detecting cervical cancer. Both false-positive and false-negative reports may occur. Performed at [facility], [address] [place] [id number] Chirag Metzger PA-C LAB_1 Performing Organization Address [facility] Co de Phone Number PN SOFT [address] [place] [address] from Last 3 Months or Most Recently Relevant to Health Maintenance Care Teams Cell Liner Relationship Specialty Start Date End Date Chirag Metzger PA-C [facility] [place] [address] PCP - General Physician Booster Operator 07/06/16
--- OUTSIDE RECORDS SUMMARY | 2023-09-21 09:58 | XMS_ITS | Encounter Summary ---
Author Name Unknown Organization [facility] Address [address] [place] [address] Care Team Providers Care Stand Up Comedian Name Role Phone Chirag Metzger PA-C Primary Care Provider [phone] Encounter Details Date Type Department Care Team (Latest Contact Info) Description 05/25/1997 Orders Only Hung Burrows Social [...] on filedocumented in this encounter Care Teams Stand Up Comedian Relationship Specialty Start Date End Date Chirag Metzger PA-C [address] [place] [address] PCP - General Physician Cable Engineer 07/06/16 documented as of this encounter
--- OUTSIDE RECORDS SUMMARY | 2023-09-21 09:58 | XMS_ITS | Encounter Summary ---
Author Name Unknown Organization [facility] Address [address] [place] [address] Care Team Providers Care Manager Rn Name Role Phone Chirag Metzger PA-C Primary Care Provider [phone] Encounter Details Date Type Department Care Team (Latest Contact Info) Description 08/22/1999 Orders Only Luis Fernando Dc MD [address] [place] [address] [place] [address] Social History Tobacco Use Types Packs/Day Years Used Date Smoking Tobacco: Never Assessed Sex and Gender Information Value Date Recorded Sex Assigned at Not on file Gender Identity Not on file Sexual Orientation Not on file documented as of this encounter Plan of Treatment Not on file documented as of this encounter Visit Diagnoses Not on filedocumented in this encounter Care Teams Manager Rn Relationship Specialty Start Date End Date Chirag Metzger PA-C [address] [place] [address] PCP - General Physician Ukrainian Folk Arts Instructor 07/06/16 documented as of this encounter
--- OUTSIDE RECORDS SUMMARY | 2023-09-21 09:58 | XMS_ITS | Encounter Summary ---
Author Name Unknown Organization [facility] Address [address] [place] [address] Care Team Providers Care Lubricator Granulator Name Role Phone Chirag Metzger PA-C Primary Care Provider [phone] Encounter Details Date Type Department Care Team (Latest Contact Info) Description 12/20/1999 Orders Only Andrew Pappas MD [address] [place] [address] Social History Tobacco Use Types Packs/Day Years Used Date Smoking Tobacco: Never Assessed Sex and Gender Information Value Date Recorded Sex Assigned at Not on file Gender Identity Not on file Sexual Orientation Not on file documented as of this encounter Plan of Treatment Not on file documented as of this encounter Visit Diagnoses Not on filedocumented in this encounter Care Teams Lubricator Granulator Relationship Specialty Start Date End Date Chirag Metzger PA-C [address] [place] [address] PCP - General Physician Wire Brush Operator 07/06/16 documented as of this encounter
--- OUTSIDE RECORDS SUMMARY | 2023-09-21 09:58 | XMS_ITS | Encounter Summary ---
Author Name Unknown Organization [facility] Address [address] [place] [address] Care Team Providers Care Energy Director Name Role Phone Chirag Metzger PA-C Primary Care Provider [phone] Encounter Details Date Type Department Care Team (Latest Contact Info) Description 03/25/1997 Orders Only Carlos Penny MD [facility] [address] [facility], [address] Social History Tobacco Use Types Packs/Day Years Used Date Smoking Tobacco: Never Assessed Sex and Gender Information Value Date Recorded Sex Assigned at Not on file Gender Identity Not on file Sexual Orientation Not on file documented as of this encounter Plan of Treatment Not on file documented as of this encounter Visit Diagnoses Not on filedocumented in this encounter Care Teams Energy Director Relationship Specialty Start Date End Date Chirag Metzegr PA-C [address] [place] [address] PCP - General Physician Quality Assurance Inspector 07/06/16 documented as of this encounter
--- OUTSIDE RECORDS SUMMARY | 2023-09-21 09:58 | XMS_ITS | Continuity of Care Document ---
Author Name Unknown Organization [facility] kuldip Address [address] [place] [address] Phone Care Team Providers Care Rn Procedure Name Role Phone Will MD MARQUEZ, Vlad [...] Diagnoses Date Provider Providers Copied on Encounter [facility], [address] [place] [address] [place] Rain[place], [place], [id number] , [place] tel:[phone] [facility] [place] No Information 2 Will Vlad. [address] [place] [address] [place], [place], [id number] , [place]. tel:[phone] OFFICE/OUTPAT IENT VISIT, [facility], [address] [place] [address] [place]al Rain[place], [place], [id number] , [place] tel:[phone] [facility] [place] left knee pain (chief complaint) Other chronic postprocedural painPain in left kneeFibromyalgiaL joni term (current) use of opiate analgesic 9 Ludy Jarrett. [address] [place] [address] [address], [place], [place], [id number] , [place]. tel:[phone] Referring Provider: Simona Mendez[address], [address]. tel:[phone] [facility], [address] [place] [address] [place], [id number] , [place] tel:[phone] [facility] [place] No Information 9 Will Vlad. [address] [place] [address] [place], [place], [id number] , [place]. tel:[phone] Referring Provider: Simona Mendez[address], [address]. [phone] OFFICE/OUTPAT IENT VISIT, [facility], [address] [place] [address] [place], [id number] , [place] tel:[phone] [facility] [place] left knee pain (chief complaint) Other chronic postprocedural painPain in left kneeFibromyalgiaL joni term (current) use of opiate analgesic 9 Ludy Jarrett. [address] [place] [address] [address], [place], [place], [id number] , [place]. tel: [phone] Referring Provider: Simona Mendez, [facility] [address] [place] [address], [facility]. tel: [phone] OFFICE/OUTPAT IENT VISIT, [facility], [address] [place], [place], [id number] , [place] tel: [phone] [facility] right knee pain (chief complaint) Other chronic postprocedural painPain in left kneeFibromyalgiaL joni term (current) use of opiate analgesic 9 Ludy Jarrett. [address] [place] [address] [address], [place], [place], [id number] , [place]. tel: [phone] Referring Provider: Simona Mendez, [address], [facility]. tel: [phone] OFFICE/OUTPAT IENT VISIT, [facility], [address] [place], [place], [id number] , [place] tel: [phone] [facility] right knee pain (chief complaint) Other chronic postprocedural painPain in left kneeFibromyalgiaL joni term (current) use of opiate analgesic 0 9 Bostonjoshua Jarrett. [address] [place] [address] [address], [place], [place], [id number] , [place]. tel: [phone] Referring Provider: Simona Mendez, [facility] [address] [place] [address], [facility]. tel:[phone] OFFICE/OUTPAT IENT VISIT, [facility], [address] [place], [place], [id number] , [place] tel: [phone] [facility] right knee pain (chief complaint) Other chronic postprocedural painPain in left kneeLong term (current) use of opiate analgesicFibromya lgia Oct- 9 Ludy Jarrett. [address] [place] [address] [address], [place], [place], [id number] , [place]. tel: [phone] Referring Provider: Simona Mendez, [facility] And [address], [facility]. tel:[phone] OFFICE/OUTPAT IENT VISIT, [facility], [address] [place] [address], [id number] , [place] tel: [phone] [facility] right knee pain (chief complaint) Other chronic postprocedural painPain in left kneeLong term (current) use of opiate analgesic September- 5- 9 Ludy Jarrett. [address] [place] [address] 11 [facility] 100, [place], [place], [id number] , [place]. tel: [phone] Referring Provider: Simona Mendez, [facility] And [address], [facility]. tel:[phone] OFFICE/OUTPAT IENT VISIT, [facility], [address] [place] [address], [id number] , [place] tel: [phone] [facility] right knee pain (chief complaint) Other chronic postprocedural painPain in left kneeLong term (current) use of opiate analgesic Apr-1 7-201 9 Ludy Jarrett. [address] [place] [address] 11 [facility] 100, [place], [place], [id number] , [place]. tel: [phone] Referring [facility]: [facility] [address], [facility]. tel:[phone] OFFICE/OUTPAT IENT VISIT, [facility], [address] [place] [address], [id number] , [place] tel: [phone] [facility] right knee pain (chief complaint) Pain in left kneeOther chronic postprocedural painLong term (current) use of opiate analgesic Apr-0 3-201 9 Hutchinsadriana Casiano. [facility], [address] [place] [address] N [facility] [address], [place], [address], [place]. tel: [phone] Referring Provider: Simona Mendez, [facility] [address] [place] [address], [address]. tel:[phone] OFFICE/OUTPAT IENT VISIT, [facility], [address] [place] [address], [id number] , [place] tel:[phone] [facility] Leg Pain (chief complaint) Pain in left kneeLong term (current) use of opiate analgesicHeadache Jul-2 0-201 9 [place]. [place], [address], [address], [place]. tel:[phone] Referring Provider: Simona Mendez[address], [facility]. tel:[phone] OFFICE/OUTPAT IENT VISIT, [facility], [address] [place] [address], [id number] , [place] tel:[phone] [facility] Leg Pain (chief complaint) Pain in left kneePain in left legLong term (current) use of opiate analgesic Mar-0 6-201 9 Ludy Jarrett. [address] [place] [address] [address], [place], [place], [id number] , [place]. tel:[phone] Referring Provider: Simona Mendez[address], [address]. tel:[phone] OFFICE CONSULTATION [facility], [address] [place] [address], [id number] , [place] [phone] [facility] Leg Pain (chief complaint) Pain in left kneePain in left legLong term (current) use of opiate analgesicEncounte r for therapeutic drug level monitoring Feb-2 0-201 9 [place], [address], [address], [place]. tel:[phone] Referring Provider: Simona Mendez [facility] [address] [place] [address], [address]. tel:[phone] Family History Family Member Type Diagnosis Age At Onset Father Problem (finding) chronic pain Mother Problem (finding) chronic pain Payers Payer name Insurance type Covered libertarian ID Yayo shultz(s) [employer] Sr[employer] Claims CI [id number] Social History Type Description Quantity Date Captured Comments Sex Female Smoking Status No Information Chief Complaint And Reason For Visit No Information Reason For Referral Reason For Referral No Information Plan Of Treatment Date Type Action Status Future Order: Lab Order ROMANA RINCON DRUG ANALYSIS, URINE, WITH MED REPORT ([id number]), Ordered on: Ordered History Of Present Illness [...] W/u came back unremarkable, per patient report. [facility] programmer developer recommended she double up" on all medications including Cymbalta, Gabapentin, and oxycodone.Has started PT ar [facility] and clinics with some benefit. [facility] physical therapist recommended TENS unit Rx [...] Pain today is fluctuating. Recently returned from [place] which has aggravated her pain. Additionally c/o [...] activity while traveling. Was recently seen by programmer developer and started Cymbalta-- has not yet experienced notable benefit. Application Integration Specialist has also ordered PT which patient intends [...] L anterior thigh. Recently was seen by programmer developer at [facility] who has advised Cymbalta for PIPER INSTALLER hypersensitivity which she intends on trialling soon.Patient [...] second orthopedic opinion with Dr. Perez at [facility] regarding her ongoing L knee pain following arthroscopy procedure in Mar. She was given a cortisone injection on Sun. by [facility] for inflammation. Additionally had updated MRI which showed no ligament or bone deformities. [facility] recommended she meet with programmer developer which she plans on doing so in [...] sitting and standing. right knee pain (comments) Mrs. Ward presents [...] combination of 2 tramadol tabs and hydroxyzine. right knee pain Onset: gradual. Duration: chronic. Severity level is incapacitating. It occurs constantly and is worsening. Location: right knee. The pain is tingling. The pain is aggravated by bending, climbing stairs, movement, walking and standing. Associated symptoms include swelling. There are no pertinent negatives. Leg Pain Duration: chroni c. Severity level [...] pain, referred by Emanuel Gill MD at [facility] . Her pain began 3 months ago s/p L knee arthroscopy. Reports she initially experienced allodynia, temperature changes, and swelling although these sxs have improved. Current pain is intermittent and varies depending on level of swelling, and activity. Expresses frustration regarding her pain as it inhibits ability to walk and participate in normal activities. Underwent PT at [facility] from 12/2017-05/2018--helpful. Trialed L knee cortisone injection at [facility] which was helpful for approximately one [...] and other recommended therapies and would like [facility] to assume management of pain care. [...]
--- OUTSIDE RECORDS SUMMARY | 2023-09-21 09:58 | XMS_ITS | Encounter Summary ---
Author Name Unknown Organization [facility] Address [address] [place] [address] Care Team Providers Care Ingredient Specialist Name Role Phone Chirag Metzger PA-C Primary Care Provider Encounter Details Date Type Department Care Team (Latest Contact Info) Description 12/14/1995 Orders Only Julianna De Leon MD [address] [place] [address] Social History Tobacco Use Types Packs/Day Years Used Date Smoking Tobacco: Never Assessed Sex and Gender Information Value Date Recorded Sex Assigned at Not on file Gender Identity Not on file Sexual Orientation Not on file documented as of this encounter Plan of Treatment Not on file documented as of this encounter Visit Diagnoses Not on filedocumented in this encounter Care Teams Ingredient Specialist Relationship Specialty Start Date End Date Chirag Metzger PA-C [address] [place] [id number] PCP - General Physician Glass Artist 07/06/16 documented as of this encounter
--- OUTSIDE RECORDS SUMMARY | 2023-09-21 09:58 | XMS_ITS | Encounter Summary ---
Author Name Unknown Organization [facility] Address [address] [place] [address] Care Team Providers Care Splitter Hand Name Role Phone Chirag Metzger PA-C Primary Care Provider Encounter Details Date Type Department Care Team (Latest Contact Info) Description 11/05/1997 Orders Only Marco Schaffer [facility] [address] [facility], [id number] Social History Tobacco Use Types Packs/Day Years Used Date Smoking Tobacco: Never Assessed Sex and Gender Information Value Date Recorded Sex Assigned at Not on file Gender Identity Not on file Sexual Orientation Not on file documented as of this encounter Plan of Treatment Not on file documented as of this encounter Visit Diagnoses Not on filedocumented in this encounter Care Teams Splitter Hand Relationship Specialty Start Date End Date Chirag Metzger PA-C [address] [place] [address] PCP - General Physician Coverage Specialist Rn 07/06/16 documented as of this encounter
--- OUTSIDE RECORDS SUMMARY | 2023-09-21 09:58 | XMS_ITS | Encounter Summary ---
Author Name Unknown Organization [facility] Address [address] [place] [address] Care Team Providers Care Tier Lift Operator Name Role Phone Chirag Metzger PA-C Primary Care Provider [phone] Encounter Details Date Type Department Care Team (Latest Contact Info) Description 05/18/1997 Orders Only Isrrael Arias MD [address] [place] [address] Social History Tobacco Use Types Packs/Day Years Used Date Smoking Tobacco: Never Assessed Sex and Gender Information Value Date Recorded Sex Assigned at Not on file Gender Identity Not on file Sexual Orientation Not on file documented as of this encounter Plan of Treatment Not on file documented as of this encounter Visit Diagnoses Not on filedocumented in this encounter Care Teams Tier Lift Operator Relationship Specialty Start Date End Date Chirag Metzger PA-C [address] [place] [address] PCP - General Physician Knife Setter Grinder Machine 07/06/16 documented as of this encounter
--- OUTSIDE RECORDS SUMMARY | 2023-09-21 09:59 | XMS_ITS | Encounter Summary ---
Author Name Unknown Organization [facility] Address [address] [place] [address] Care Team Providers Care Inpatient Auditor Name Role Phone Chirag Metzger PA-C Primary Care Provider [phone] Encounter Details Date Type Department Care Team (Latest Contact Info) Description 08/29/1994 Orders Only Sahil Plunkett, DDS [facility] [place] [address] [place] [address] Social History Tobacco Use Types Packs/Day Years Used Date Smoking Tobacco: Never Assessed Sex and Gender Information Value Date Recorded Sex Assigned at Not on file Gender Identity Not on file Sexual Orientation Not on file documented as of this encounter Plan of Treatment Not on file documented as of this encounter Visit Diagnoses Not on filedocumented in this encounter Care Teams Inpatient Auditor Relationship Specialty Start Date End Date Chirag Metzger PA-C [address] [place] [address] PCP - General Physician Back Filler Operator 07/06/16 documented as of this encounter
--- OUTSIDE RECORDS SUMMARY | 2023-09-21 09:59 | XMS_ITS | Encounter Summary ---
Author Name Unknown Organization [facility] Address [address] [place] [address] Care Team Providers Care Kennel Hand Name Role Phone Chirag Metzger PA-C Primary Care Provider Encounter Details Date Type Department Care Team (Latest Contact Info) Description 10/01/1995 [place] [address] [place] [address] Social History Tobacco Use Types Packs/Day Years Used Date Smoking Tobacco: Never Assessed Sex and Gender Information Value Date Recorded Sex Assigned at Not on file Gender Identity Not on file Sexual Orientation Not on file documented as of this encounter Plan of Treatment Not on file documented as of this encounter Visit Diagnoses Not on filedocumented in this encounter Care Teams Kennel Hand Relationship Specialty Start Date End Date Chirag Metzger PA-C [address] [place] [address] PCP - General Physician Training And Development Specialist 07/06/16 documented as of this encounter
--- OUTSIDE RECORDS SUMMARY | 2023-09-21 09:59 | XMS_ITS | Encounter Summary ---
Author Name Unknown Organization [facility] Address [address] [place] [address] Care Team Providers Care Physical Chemistry Teacher Name Role Phone Chirag eMtzger PA-C Primary Care Provider [phone] Encounter Details Date Type Department Care Team (Latest Contact Info) Description 10/12/1995 Orders Only Keya Bower Social [...] filedocumented in this encounter Care Teams Physical Chemistry Teacher Relationship Specialty Start Date End Date Chirag Metzger PA-C [facility] [place] [address] PCP - General Physician Chief Resource Officer 07/06/16 documented as of this encounter
--- OUTSIDE RECORDS SUMMARY | 2023-09-21 09:59 | XMS_ITS | Encounter Summary ---
Author Name Unknown Organization [facility] Address [address] [place] [address] Care Team Providers Care Felt Finishing Supervisor Name Role Phone Chirag Metzger PA-C Primary Care Provider [phone] Encounter Details Date Type Department Care Team (Latest Contact Info) Description 10/03/1995 Orders Only Tamica Ferrer Social [...] on filedocumented in this encounter Care Teams Felt Finishing Supervisor Relationship Specialty Start Date End Date Chirag Metzger PA-C [address] [place] [address] PCP - General Physician Fixture Fabricator Repairer 07/06/16 documented as of this encounter
[2023-09-21] MEDS: 0.9 % SODIUM CHLORIDE 1000 ml 1,000 ML IV (10:26)
[2023-09-21] MEDS: MORPHINE 4 MG/ML INJ IVP (10:32)
[2023-09-21 10:34] LABS: Basophils Percent Auto 0.2 % (0.0-3.0); Eosinophils Percent Auto 0.4 % (0.0-7.0); Hematocrit 38.5 % (33.0-51.0); Hemoglobin* 12.2 gm/dL (12.0-16.0); Immature Granulocytes Pct Auto 0.2 %; Lymphocytes Percent Auto 25.6 % (20-44); Mean Corpuscular HGB Conc 32 gm/dL (32-36); Mean Corpuscular Hemoglobin 29 pg (26-34); Mean Corpuscular Volume 92 fL (80-100); Neutrophils Percent Auto 68.6 % (42.0-72.0); Platelet Count* 272 K/uL (140-440); RDW Coefficient of Variation % 12.3 % (11.5-15.5); Red Blood Count 4.18 m/uL (4.00-5.20); White Blood Count* 12.33 K/uL (4.50-11.00)
[2023-09-21] MEDS: KETOROLAC 15 MG/ML inj IVP (10:34)
[2023-09-21] MEDS: HYOSCYAMINE SULFATE 0.125 MG TAB 0.25 MG SUBLINGUAL (10:36)
[2023-09-21 10:37] LABS: Slide Review Reflex No
[2023-09-21 10:48] LABS: Chloride* 102 mmol/L (96-114)
[2023-09-21 10:49] LABS: Potassium* 3.5 mmol/L (3.6-5.1); Sodium* 138 mmol/L (135-149)
[2023-09-21 10:51] LABS: Creatinine* 0.7 mg/dL (0.5-1.5); Estimated Glomerular Filt Rate 103 ml/min
[2023-09-21 10:52] LABS: Alanine Aminotransferase* 13 U/L (4-35); Alkaline Phosphatase* 68 U/L (40-150); Anion Gap 7 mEq/L (7-15); Aspartate Amino Transferase* 20 U/L (12-35); Bilirubin Total* 1.8 mg/dL (0.1-1.5); Blood Urea Nitrogen* 8 mg/dL (7-30); Carbon Dioxide* 29 mmol/L (20-32); Glucose* 96 mg/dL (60-115); Lipase* 40 U/L (23-300); Total Protein* 7.2 g/dL (6.0-8.3)
[2023-09-21 11:06] LABS: C Reactive Protein* 13.4 mg/dL (0.5-1.0)
--- NOTE | 2023-09-21 11:10 | CT_ITS ---
Patient: KATERINA LA Facility:?[facility] Patient ID:?[id number] Site Patient ID:?[id number]. Site :?[id number] Study:?CT-Abdomen/Pelvis W/ 98CC [id number]/3/2024 11:41:50 AM Ordering Physician:?Deshawn Langley Final Report: INDICATION: General abdomen pain, elevated CRP, constipation TECHNIQUE: CT abdomen and pelvis with 98 cc ISOVUE 370 IV contrast. COMPARISON: None. FINDINGS: The liver is normal in size, shape and attenuation. Gallbladder and biliary tree are normal. The spleen, adrenal glands and pancreas are within normal limits. The kidneys are unremarkable. No evidence of bowel obstruction. Marked wall thickening and severe sigmoid colon diverticular inflammation. Findings most compatible with severe acute sigmoid diverticulitis. No evidence of free air. Moderate volume surrounding free fluid extending to the pelvis without rim enhancement to suggest abscess. Acute diverticulitis involving the sigmoid colon comes very close to the cecum and left posterior dome of the bladder. There is maintained fat plane but there may be early tethering to both of these structures. Recommend attention on follow-up. Mild stool burden throughout the colon. The appendix is mildly dilated but remains air-filled. No evidence of free air. The lower chest is unremarkable. IMPRESSION: Marked wall thickening and severe sigmoid colon diverticular inflammation. Findings most compatible with severe acute sigmoid diverticulitis. No evidence of free air. Moderate volume surrounding free fluid extending to the pelvis without rim enhancement to suggest abscess. Acute diverticulitis involving the sigmoid colon comes very close to the cecum and left posterior dome of the bladder. There is maintained fat plane but there may be early tethering to both of these structures. Recommend attention on follow-up. Mildly prominent round pericolonic sigmoid lymph nodes which are nonspecific and may be reactive. Recommend colonoscopy following treatment and symptom resolution to exclude underlying sigmoid lesion. Please note that all CT scans at this facility use dose modulation, iterative reconstruction, and/or weight-based dosing when appropriate to reduce radiation dose to as low as reasonably achievable. Dictated by Riaz Metcalf MD @ 09/21/2023 12:02:21 PM Signed by:?Riaz Metcalf MD @09/21/2023 12:02:21 PM (Electronic Signature)
[2023-09-21] MEDS: KETAMINE 50 MG/0.5 ML 20 MG in 0.9 % SODIUM CHLORIDE 100 ml 100 ML 200.4 MG IVPB (12:32)
[2023-09-21] MEDS: LACTATED RINGERS 1000 ML 1,000 ML IV (13:10)
[2023-09-21] MEDS: ONDANSETRON 2 MG/ML inj 4 MG IVP (13:15)
[2023-09-21] MEDS: AMPICILLIN/SULBACTAM 3 GM in 0.9 % SODIUM CHLORIDE Mini-bag 100 ML IVPB (14:05)
[2023-09-21] MEDS: GLYCERIN SUPP (ADULT) 1 SUPP PR (15:10)
== END 2023-09-21 15:33 | disposition home or self-care (01) ==
PROVIDERS: Emergency Provider Family Medicine; PCP Physician Assistant Medical
DX: K57.30 Diverticulosis of large intestine without perforation or abscess without bleeding (principal); G43.909 Migraine, unspecified, not intractable, without status migrainosus; K59.00 Constipation, unspecified
CPT/HCPCS: 36415; 74019; 74177; 80048; 80076; 81001; 83690; 85025; 86140; 96365; 96366; 96375; 99284; 99285; A9270; J0295; J1885; J2270; J2405; J3490; J7030; J7120; Q9967

== ENCOUNTER 2023-12-31 07:09 | Outpatient (CLI) | payer BC, SELFPAY ==
--- OUTSIDE RECORDS SUMMARY | 2023-12-31 07:12 | XMS_ITS | Continuity of Care Document ---
Author Organization [facility] kuldip Address [address] [facility] [place] [address] Phone Care Team Providers Care Triple Air Valve Tester Name Role Phone Will Vlad BENÍTEZ Unavailable Unavailabl e Allergies, Adverse Reactions, Alerts [...] Diagnoses Date Provider Providers Copied on Encounter [facility], [address] [place] [address] Magali Raines [place], [id number] , [place] [phone] [facility] [place] No Information 2 Will Vlad. [address] [place] [address] [place], [place], [id number] , [place]. tel:[phone] OFFICE/OUTPAT IENT VISIT, [facility], [address] [place] [address] [place] Rain[place], [place], [id number] , [place] tel:[phone] [facility] [place] left knee pain (chief complaint) Other chronic postprocedural painPain in left kneeFibromyalgiaL joni term (current) use of opiate analgesic 9 Ludy Jarrett. [address] [place] [address] [address], [place], [place], [id number] , [place]. [phone] Referring Provider: Simona Mendez[address], [address]. tel:[phone] [facility], [address] [place] [address] [place], [id number] , [place] tel:[phone] [facility] [place] No Information 9 Will Vlad. [address] [place] [address] [place], [place], [id number] , [place]. tel:[phone] Referring Provider: Simona Mendez[address], [address]. tel:[phone] OFFICE/OUTPAT IENT VISIT, [facility], [address] [place] [address] [place], [place], [id number] , [place] [phone] [facility] [place] left knee pain (chief complaint) Other chronic postprocedural painPain in left kneeFibromyalgiaL joni term (current) use of opiate analgesic 9 Bostonjoshua Jarrett. [address] [place] [address] [address], [place], [place], [id number] , [place]. tel: [phone] Referring Provider: Simona Mendez, [facility] And [address], [address]. tel:[phone] OFFICE/OUTPAT IENT VISIT, [facility], [address] [place], [place], [id number] , [place] tel: [phone] [facility] [place] right knee pain (chief complaint) Other chronic postprocedural painPain in left kneeFibromyalgiaL joni term (current) use of opiate analgesic 9 Ludy Jarrett. [address] [place] [address] [address], [place], [place], [id number] , [place]. tel: [phone] Referring Provider: Simona Mendez[address], [facility]. tel: [phone] OFFICE/OUTPAT IENT VISIT, [facility], [address] [place], [place], [id number] , [place] tel: [phone] [facility] right knee pain (chief complaint) Other chronic postprocedural painPain in left kneeFibromyalgiaL joni term (current) use of opiate analgesic 9 Bostonjoshua Jarrett. [address] [place] [address] [address], [place], [place], [id number] , [place]. tel: [phone] Referring Provider: Simona Mendez, [facility] [address], [address]. tel:[phone] OFFICE/OUTPAT IENT VISIT, [facility], [address] [place] [address], [id number] , [place] tel: [phone] [facility] right knee pain (chief complaint) Other chronic postprocedural painPain in left kneeLong term (current) use of opiate analgesicFibromya lgia 9 Ludy Jarrett. [address] [place] [address] [address], [place], [place], [id number] , [place]. tel:[phone] Referring Provider: [facility] And [address], [facility]. tel:[phone] OFFICE/OUTPAT IENT VISIT, [facility], [address] [place] [address], [id number] , [place] tel:[phone] [facility] right knee pain (chief complaint) Other chronic postprocedural painPain in left kneeLong term (current) use of opiate analgesic May- 5-201 9 Boston Kolby. [address] [place] [address] [address] [facility] [address], [place], [place], [id number] , [place]. tel:[phone] Referring Provider: [facility] And [address], [facility]. tel:[phone] OFFICE/OUTPAT IENT VISIT, [facility], [address] [place] [address], [id number] , [place] tel:[phone] [facility] right knee pain (chief complaint) Other chronic postprocedural painPain in left kneeLong term (current) use of opiate analgesic Apr-1 7-201 9 Boston Kolby. [address] [place] [address] [address] [facility] [address], [place], [place], [id number] , [place]. tel: [phone] Referring Provider: [facility] And [address], [facility]. tel:[phone] OFFICE/OUTPAT IENT VISIT, [facility], [address] [place] [address], [id number] , [place] tel:[phone] [facility] right knee pain (chief complaint) Pain in left kneeOther chronic postprocedural painLong term (current) use of opiate analgesic Apr-0 3-201 9 Liset Casiano. [facility], [address] [place] [address] [address] [facility] [address], [place], [address], [place]. tel: [phone] Referring Provider: Simona Mendez, [facility] [address] [place] [address], [address]. tel:[phone] OFFICE/OUTPAT IENT VISIT, [facility], [address] [place] [address], [id number] , [place] tel: [phone] [facility] Leg Pain (chief complaint) Pain in left kneeLong term (current) use of opiate analgesicHeadache Mar-2 0-201 9 [place], [address], [place], [address], [place]. tel: [phone] Referring Provider: Simona Mendez[address], [facility]. tel:[phone] OFFICE/OUTPAT IENT VISIT, [facility], [address] [place] [address], [id number] , [place] tel: [phone] [facility] Leg Pain (chief complaint) Pain in left kneePain in left legLong term (current) use of opiate analgesic Mar-0 6-201 9 Ludy Jarrett. [address] [place] [address] [address], [place], [place], [id number] , [place]. tel: [phone] Referring Provider: Simona Mendez, [address], [address]. tel:[phone] OFFICE CONSULTATION [facility], [address] [place] [address], [id number] , [place] tel: [phone] [facility] Leg Pain (chief complaint) Pain in left kneePain in left legLong term (current) use of opiate analgesicEncounte r for therapeutic drug level monitoring Feb-2 0-201 9 [place] [facility], [address], [place], [address], [place]. tel:[phone] Referring Provider: Simona Mendez [facility] [address] [place] [address], [address]. tel:[phone] Family History Family Member Type Diagnosis Age At Onset Father Problem (finding) chronic pain Mother Problem (finding) chronic pain Payers Payer name Insurance type Covered constitution party ID Yayo shultz(s) [employer] Srvs Claims CI [id number] Social History Type Description Quantity Date Captured Comments Sex Female Smoking Status No Information Chief Complaint And Reason For Visit No Information Reason For Referral Reason For Referral No Information Plan Of Treatment Date Type Action Status Future Order: Lab Order ROMANA RINCON DRUG ANALYSIS, URINE, WITH MED REPORT ([id number]), Ordered on: Ordered History Of Present Illness [...] back unremarkable, per patient report. [facility] cellophane worker recommended she double up" on all medications including Cymbalta, Gabapentin, and oxycodone.Has started PT ar [facility] and clinics with some benefit. [facility] [...] Pain today is fluctuating. Recently returned from [place] which has aggravated her pain. Additionally c/o [...] activity while traveling. Was recently seen by cellophane worker and started Cymbalta-- has not yet experienced notable benefit. Gas Welding Equipment Mechanic has also ordered PT which patient intends [...] L anterior thigh. Recently was seen by cellophane worker at [facility] who has advised Cymbalta for LOOM FIXER hypersensitivity which she intends on trialling soon.Patient [...] stand, stretch and sit. right knee pain Severity level i s [...] second orthopedic opinion with Dr. Perez at [facility] regarding her ongoing L knee pain following arthroscopy procedure in Mar. She was given a cortisone injection on Sun. by [facility] for inflammation. Additionally had updated MRI which showed no ligament or bone deformities. [facility] recommended she meet with cellophane worker which she plans on doing so in [...] stretching, changing positions and chiropractic. Leg Pain Duration: chroni c. Severity level is 10. It occurs constantly. Location: left lower leg. The pain is aching and sharp. The pain is aggravated by bending, climbing (and descending) stairs, movement, sitting, walking, standing and housework. The pain is relieved by ice, pain/RX meds, physical therapy and stretching. Leg Pain (comments) [place] is he re for initial consult for L leg and knee pain, referred by Emanuel Gill MD at [facility] . Her pain began 3 months ago s/p L knee arthroscopy. Reports she initially experienced allodynia, temperature changes, and swelling although these sxs have improved. Current pain is intermittent and varies depending on level of swelling, and activity. Expresses frustration regarding her pain as it inhibits ability to walk and participate in normal activities. Underwent PT at [facility] from 12/2017-05/2018--helpful. Trialed L knee cortisone injection at [facility] which was helpful for approximately one [...] and other recommended therapies and would like [facility] to assume management of pain care. Functional Status Date Functional Assessmen t No Information Instructions Date Instruction Additional Infor mation No Information Assessments Type Assessment Date No Information Patient Care Teams Name Effective Dates (start - stop) Status Members No Information
--- OUTSIDE RECORDS SUMMARY | 2023-12-31 07:12 | XMS_ITS | Encounter Summary ---
Author Organization [facility] Address [address] [place] [address] Care Team Providers Care Civilian Jail Officer Name Role Phone Chirag Metzger PA-C Primary Care Provider [phone] Encounter Details Date Type Department Care Team (Latest Contact Info) Description 12/20/1999 Orders Only Andrew Pappas MD [address] [place] [address] Social History Tobacco Use Types Packs/Day Years Used Date Smoking Tobacco: Never Assessed Sex and Gender Information Value Date Recorded Sex Assigned at Not on file Gender Identity Not on file Sexual Orientation Not on file documented as of this encounter Plan of Treatment Not on file documented as of this encounter Visit Diagnoses Not on filedocumented in this encounter Care Teams Civilian Jail Officer Relationship Specialty Start Date End Date Chirag Metzger PA-C [address] [place] [address] PCP - General Physician Shoulder Pad Molder 07/06/16 documented as of this encounter
--- OUTSIDE RECORDS SUMMARY | 2023-12-31 07:12 | XMS_ITS | Encounter Summary ---
Author Organization [facility] Address [address] [place] [address] Care Team Providers Care Medical Imaging Technician Name Role Phone Chirag Metzger PA-C Primary Care Provider Encounter Details Date Type Department Care Team (Latest Contact Info) Description 11/05/1997 Orders Only Marco Schaffer [facility] [address] [facility], [id number] Social History Tobacco Use Types Packs/Day Years Used Date Smoking Tobacco: Never Assessed Sex and Gender Information Value Date Recorded Sex Assigned at Not on file Gender Identity Not on file Sexual Orientation Not on file documented as of this encounter Plan of Treatment Not on file documented as of this encounter Visit Diagnoses Not on filedocumented in this encounter Care Teams Medical Imaging Technician Relationship Specialty Start Date End Date Chirag Metzger PA-C [address] [place] [address] PCP - General Physician Centerless Grinder Set Up Operator 07/06/16 documented as of this encounter
--- OUTSIDE RECORDS SUMMARY | 2023-12-31 07:12 | XMS_ITS | Encounter Summary ---
Author Organization [facility] Address [address] [place] [address] Care Team Providers Care Mica Sizer Name Role Phone Chirag Metzger PA-C Primary Care Provider [phone] Encounter Details Date Type Department Care Team (Latest Contact Info) Description 01/06/2000 Orders Only Luis Fernando Dc MD [address] [place] [address] Social History Tobacco Use Types Packs/Day Years Used Date Smoking Tobacco: Never Assessed Sex and Gender Information Value Date Recorded Sex Assigned at Not on file Gender Identity Not on file Sexual Orientation Not on file documented as of this encounter Plan of Treatment Not on file documented as of this encounter Visit Diagnoses Not on filedocumented in this encounter Care Teams Mica Sizer Relationship Specialty Start Date End Date Chirag Metzger PA-C [address] [place] [address] PCP - General Physician Underground Mining Section Foreman 07/06/16 documented as of this encounter
--- OUTSIDE RECORDS SUMMARY | 2023-12-31 07:12 | XMS_ITS | Encounter Summary ---
Author Organization [facility] Address [address] [place] [address] Care Team Providers Care Associate Relations Specialist Name Role Phone Chirag Metzger PA-C Primary Care Provider [phone] Encounter Details Date Type Department Care Team (Latest Contact Info) Description 09/02/1999 Orders Only Andrew Pappas MD [address] [place] [address] Social History Tobacco Use Types Packs/Day Years Used Date Smoking Tobacco: Never Assessed Sex and Gender Information Value Date Recorded Sex Assigned at Not on file Gender Identity Not on file Sexual Orientation Not on file documented as of this encounter Plan of Treatment Not on file documented as of this encounter Visit Diagnoses Not on filedocumented in this encounter Care Teams Associate Relations Specialist Relationship Specialty Start Date End Date Chirag Metzger PA-C [address] [place] [address] PCP - General Physician Post Acute Care Nurse Practitioner 07/06/16 documented as of this encounter
--- OUTSIDE RECORDS SUMMARY | 2023-12-31 07:12 | XMS_ITS | Encounter Summary ---
Author Organization [facility] Address [address] [place] [address] Care Team Providers Care Counseling Center Director Name Role Phone Chirag Metzger PA-C Primary Care Provider [phone] Encounter Details Date Type Department Care Team [...] on filedocumented in this encounter Care Teams Counseling Center Director Relationship Specialty Start Date End Date Chirag Metzger PA-C [facility] [place] [address] PCP - General Physician Billing Control Clerk 07/06/16 documented as of this encounter
--- OUTSIDE RECORDS SUMMARY | 2023-12-31 07:12 | XMS_ITS | Encounter Summary ---
Author Organization [facility] Address [address] [place] [address] Care Team Providers Care Home Housekeeper Name Role Phone Chirag Metzger PA-C Primary Care Provider [phone] Encounter Details Date Type Department Care Team (Latest Contact Info) Description 12/16/1999 Orders Only [employer], [place] [address] Social History Tobacco Use Types Packs/Day Years Used Date Smoking Tobacco: Never Assessed Sex and Gender Information Value Date Recorded Sex Assigned at Not on file Gender Identity Not on file Sexual Orientation Not on file documented as of this encounter Plan of Treatment Not on file documented as of this encounter Visit Diagnoses Not on filedocumented in this encounter Care Teams Home Housekeeper Relationship Specialty Start Date End Date Chirag Metzger PA-C [address] [place] [address] PCP - General Physician Production Team Member 07/06/16 documented as of this encounter
--- OUTSIDE RECORDS SUMMARY | 2023-12-31 07:12 | XMS_ITS | Encounter Summary ---
Author Organization [facility] Address [address] [place] [address] Care Team Providers Care Television Service Engineer Name Role Phone Chirag Metzger PA-C Primary Care Provider [phone] Encounter Details Date Type Department Care Team (Late st Contact Info) Description 09/17/2012 Correspondence [facility] [address] [facility] [place] [address] Enoc Blanca DC CHIROPRACTIC PT LIABILITY [...] on filedocumented in this encounter Care Teams Television Service Engineer Relationship Specialty Start Date End Date Chirag Metzger PA-C [facility] [place] [address] [address] PCP - General Physician Geotechnical Engineering Technician 07/06/16 documented as of this encounter
--- OUTSIDE RECORDS SUMMARY | 2023-12-31 07:12 | XMS_ITS | Encounter Summary ---
Author Organization [facility] Address [address] [address] Care Team Providers Care Helper Coordinator Name Role Phone Chirag Metzger PA-C Primary Care Provider [phone] Encounter Details Date Type Department Care Team (Latest Contact Info) Description 10/22/1995 Orders Only Andrew Pappas MD [address] [place] [address] Social History Tobacco Use Types Packs/Day Years Used Date Smoking Tobacco: Never Assessed Sex and Gender Information Value Date Recorded Sex Assigned at Not on file Gender Identity Not on file Sexual Orientation Not on file documented as of this encounter Plan of Treatment Not on file documented as of this encounter Visit Diagnoses Not on filedocumented in this encounter Care Teams Helper Coordinator Relationship Specialty Start Date End Date Chirag Metzger PA-C [address] [place] [address] PCP - General Physician Metal Handler 07/06/16 documented as of this encounter
--- OUTSIDE RECORDS SUMMARY | 2023-12-31 07:12 | XMS_ITS | Encounter Summary ---
Author Organization [facility] Address [address] [place] [address] Care Team Providers Care Gold Leaf Laborer Name Role Phone Chirag Metzger PA-C Primary Care Provider [phone] Encounter Details Date Type Department Care Team [...] on filedocumented in this encounter Care Teams Gold Leaf Laborer Relationship Specialty Start Date End Date Chirag Metzger PA-C [address] [place] [address] PCP - General Physician Senior Drupal Developer 07/06/16 documented as of this encounter
--- OUTSIDE RECORDS SUMMARY | 2023-12-31 07:12 | XMS_ITS | Encounter Summary ---
Author Organization [facility] Address [address] [place] [address] Care Team Providers Care Fire Alarm Dispatcher Name Role Phone Chirag Metzger PA-C Primary Care Provider [phone] Encounter Details Date Type Department Care Team (Latest Contact Info) Description 08/22/1999 Orders Only Luis Fernando Dc MD [address] [place] [address] Social History Tobacco Use Types Packs/Day Years Used Date Smoking Tobacco: Never Assessed Sex and Gender Information Value Date Recorded Sex Assigned at Not on file Gender Identity Not on file Sexual Orientation Not on file documented as of this encounter Plan of Treatment Not on file documented as of this encounter Visit Diagnoses Not on filedocumented in this encounter Care Teams Fire Alarm Dispatcher Relationship Specialty Start Date End Date Chirag Metzger PA-C [address] [place] [address] PCP - General Physician Nub Card Tender 07/06/16 documented as of this encounter
--- OUTSIDE RECORDS SUMMARY | 2023-12-31 07:12 | XMS_ITS | Encounter Summary ---
Author Organization [facility] Address [address] [place] [address] Care Team Providers Care Systems Qa Analyst Name Role Phone Chirag Metzger PA-C Primary Care Provider [phone] Encounter Details Date Type Department Care Team (Latest Contact Info) Description 04/20/1997 Orders Only Morenita Fink MD [address] [place] [address] Social History Tobacco Use Types Packs/Day Years Used Date Smoking Tobacco: Never Assessed Sex and Gender Information Value Date Recorded Sex Assigned at Not on file Gender Identity Not on file Sexual Orientation Not on file documented as of this encounter Plan of Treatment Not on file documented as of this encounter Visit Diagnoses Not on filedocumented in this encounter Care Teams Systems Qa Analyst Relationship Specialty Start Date End Date Chirag Metzger PA-C [address] [place] [address] PCP - General Physician District Superintendent 07/06/16 documented as of this encounter
--- OUTSIDE RECORDS SUMMARY | 2023-12-31 07:12 | XMS_ITS | Encounter Summary ---
Author Organization [facility] Address [address] [place] [address] Care Team Providers Care Supervisor Coremaker Name Role Phone Chirag Metzger PA-C Primary Care Provider [phone] Encounter Details Date Type Department Care Team (Latest Contact Info) Description 08/12/1997 Orders Only Marco Schaffer [facility] [address] [facility], [id number] Social History Tobacco Use Types Packs/Day Years Used Date Smoking Tobacco: Never Assessed Sex and Gender Information Value Date Recorded Sex Assigned at Not on file Gender Identity Not on file Sexual Orientation Not on file documented as of this encounter Plan of Treatment Not on file documented as of this encounter Visit Diagnoses Not on filedocumented in this encounter Care Teams Supervisor Coremaker Relationship Specialty Start Date End Date Chirag Metzger PA-C [address] [place] [address] PCP - General Physician Gas Utility Worker 07/06/16 documented as of this encounter
--- OUTSIDE RECORDS SUMMARY | 2023-12-31 07:12 | XMS_ITS | Encounter Summary ---
Author Organization [facility] Address [address] [place] [address] Care Team Providers Care Insurance Account Assistant Name Role Phone Chirag Metzger PA-C Primary Care Provider Encounter Details Date Type Department Care Team (Latest Contact Info) Description 07/01/1999 Orders Only Keya Gay MD [address] [place] [address] Social History Tobacco Use Types Packs/Day Years [...] in this encounter Care Teams Insurance Account Assistant Relationship Specialty Start Date End Date Chirag Metzger PA-C [address] [place] [address] PCP - General Physician Buyer Liaison 07/06/16 documented as of this encounter
--- OUTSIDE RECORDS SUMMARY | 2023-12-31 07:12 | XMS_ITS | Encounter Summary ---
Author Organization [facility] Address [address] [place] [address] Care Team Providers Care Trapper Animal Name Role Phone Chirag Metzger PA-C Primary Care Provider [phone] Encounter Details Date Type Department Care Team (Late st Contact Info) Description 10/31/2011 Correspondence [facility] [address] [facility] [place] [address] Enoc Blanca DC CHIROPRACTIC PT LIABILITY [...] on filedocumented in this encounter Care Teams Trapper Animal Relationship Specialty Start Date End Date Chirag Metzger PA-C [address] [place] [address] PCP - General Physician Cabinet Worker 07/06/16 documented as of this encounter
--- OUTSIDE RECORDS SUMMARY | 2023-12-31 07:12 | XMS_ITS | Encounter Summary ---
Author Organization [facility] Address [address] [place] [address] Care Team Providers Care Apple Packing Header Name Role Phone Chirag Metzger PA-C Primary Care Provider [phone] Encounter Details Date Type Department Care Team (Latest Contact Info) Description 08/29/1994 Orders Only Sahil Plunkett, SINDI [facility] [address] [place] [address] Social History Tobacco Use Types Packs/Day Years Used Date Smoking Tobacco: Never Assessed Sex and Gender Information Value Date Recorded Sex Assigned at Not on file Gender Identity Not on file Sexual Orientation Not on file documented as of this encounter Plan of Treatment Not on file documented as of this encounter Visit Diagnoses Not on filedocumented in this encounter Care Teams Apple Packing Header Relationship Specialty Start Date End Date Chirag Metzger PA-C [address] [place] [id number] PCP - General Physician Litigation Partner 07/06/16 documented as of this encounter
--- OUTSIDE RECORDS SUMMARY | 2023-12-31 07:12 | XMS_ITS | Encounter Summary ---
Author Organization [facility] Address [address] [place] [address] Care Team Providers Care Forge Helper Name Role Phone Chirag Metzger PA-C Primary Care Provider [phone] Encounter Details Date Type Department Care Team [...] on filedocumented in this encounter Care Teams Forge Helper Relationship Specialty Start Date End Date Chirag Metzger PA-C [address] [place] [address] PCP - General Physician Station Baggage Porter 07/06/16 documented as of this encounter
--- OUTSIDE RECORDS SUMMARY | 2023-12-31 07:12 | XMS_ITS | Clinical Summary ---
Author Organization [facility] Address [address] [place] [address] Care Team Providers Care Gas Station Service Attendant Name Role Phone Chirag Metzger PA-C Primary Care Provider [phone] Source Comments You are receiving this document as you are listed as the primary care provider,follow-up provider, or the patient has been referred to you for consultation.This is in compliance with the Medicare andCommunity Regional Medical Centercaid EHR Incentive Program,which states Providers who transition their patient to another setting of careor provider of care or refers their patient to another provider of care shouldprovide summary care record for each transition of care or referral. AdKeeper Allergies No known active allergies Medications Medication [...] and light sensitivity. She was seen at [facility] on 01/28/2014, and was given a shot [...] yrs) 04/10/2000 Influenza IIV4 (Quadrivalent ) 0.5mL (02066) 04/05/2017,03/02/2015,02/02/2015,2013 Influenza, Unspecified Formulation 04/14/2016(De ferred: Other),03/04/2013 [...] 156.2 cm (5' 1.5) 07/06/2016 8:17 AM [employer]UST AND ESTATES ATTORNEY Body Mass Index 39.41 07/06/2016 8:17 AM TRUST AND ESTATES ATTORNEY Plan of Treatment Health Maintenance Due Date Last Done Comments Colonoscopy 1969 Hep C Screening (Preventive Services) 1969 HIV Screening (Preventive Services) 1985 HepB (1) 1988 Adult Preventive Visit 03/06/2019 8, 07/06/2016, 12/19/2000, Additional history exists Zoster/Shingles (1 of 2) 2019 Mammogram 03/20/2019 03/20/2018, 1008/2016, 02/02/2016, Additional history exists Cervical Cancer Screening 03/06/20212017, 01/13/2015, 02/13/2013, Additional history exists DTaP/Tdap/Td (3 - Tdap) 08/16/2021 08/17/19, 08/17/2011, 05/20/1995 COVID-19 Vaccine ( season) 2023 05/03/2021, 06/22/2020, 06/01/2020 Cholesterol 03/06/2023 03/06/2018, 06/21, 01/13/2015, Additional history exists Influenza (#1) 2024 03/29/2022, 03/21, 04/14/2016, Additional history exists HepA Aged Out [...] - 03/06/2018 6:59 PM CDT Performed at [facility], [address] [place] [address] CLIA number [id number] Chirag Metzger PA-C LAB_1 Performing Organization Address [facility] Co de Phone Number PN SOFT [address] [place], [place] [address] * Pap Smear (03/06/2018 2:57 PM CDT) 03/06/2018 2:57 PM CDT Narrative PN SOFT - 03/23/2018 9:23 AM CDT FINAL GYNECOLOGICAL CYTOLOGY REPORT Pathology #: [id number] ?Date Obtained: 03/06/2018 ? Date Received: 03/07/2018 [...] and false-negative reports may occur. Performed at [address] [address] Chirag Metzger PA-C LAB_1 Performing Organization Address [facility] Co de Phone Number PN SOFT [address] [place] [address] from Last 3 Months or Most Recently Relevant to Health Maintenance Care Teams Gas Station Service Attendant Relationship Specialty Start Date End Date Chirag Metzger PA-C [facility] [place] [address] PCP - General Physician Ramp Manager 07/06/16
--- OUTSIDE RECORDS SUMMARY | 2023-12-31 07:12 | XMS_ITS | Encounter Summary ---
Author Organization [facility] Address [address] [place] [address] Care Team Providers Care Biology Professor Name Role Phone Chirag Metzger PA-C Primary Care Provider [phone] Encounter Details Date Type Department Care Team (Latest Contact Info) Description 10/01/1995 [place] [address] [place] [address] Social History Tobacco Use Types Packs/Day Years Used Date Smoking Tobacco: Never Assessed Sex and Gender Information Value Date Recorded Sex Assigned at Not on file Gender Identity Not on file Sexual Orientation Not on file documented as of this encounter Plan of Treatment Not on file documented as of this encounter Visit Diagnoses Not on filedocumented in this encounter Care Teams Biology Professor Relationship Specialty Start Date End Date Chirag Metzger PA-C [address] [place] [address] PCP - General Physician Rags Laborer 07/06/16 documented as of this encounter
--- OUTSIDE RECORDS SUMMARY | 2023-12-31 07:12 | XMS_ITS | Encounter Summary ---
Author Organization [facility] Address [address] [place] [address] Care Team Providers Care Ballistics Teacher Name Role Phone Chirag Metzger PA-C Primary Care Provider [phone] Encounter Details Date Type Department Care Team (Latest Contact Info) Description 12/14/1995 Orders Only Julianna De Leon MD [address] [place] [address] Social History Tobacco Use Types Packs/Day Years Used Date Smoking Tobacco: Never Assessed Sex and Gender Information Value Date Recorded Sex Assigned at Not on file Gender Identity Not on file Sexual Orientation Not on file documented as of this encounter Plan of Treatment Not on file documented as of this encounter Visit Diagnoses Not on filedocumented in this encounter Care Teams Ballistics Teacher Relationship Specialty Start Date End Date Chirag Metzger PA-C [address] [place] [address] PCP - General Physician Harpoon Engagement Planning Operator 07/06/16 documented as of this encounter
--- OUTSIDE RECORDS SUMMARY | 2023-12-31 07:12 | XMS_ITS | Encounter Summary ---
Author Organization [facility] Address [address] [place] [address] Care Team Providers Care Wax Engraver Name Role Phone Chirag Metzger PA-C Primary Care Provider [phone] Encounter Details Date Type Department Care Team [...] on filedocumented in this encounter Care Teams Wax Engraver Relationship Specialty Start Date End Date Chirag Metzger PA-C [address] [place] [address] [address] PCP - General Physician Mixer Operator Vacuum Pan Salt 07/06/16 documented as of this encounter
--- OUTSIDE RECORDS SUMMARY | 2023-12-31 07:12 | XMS_ITS | Encounter Summary ---
Author Organization [facility] Address [address] [place] [address] Care Team Providers Care Cover Inspector Name Role Phone Chirag Metzger PA-C Primary Care Provider [phone] Encounter Details Date Type Department Care Team (Latest Contact Info) Description 03/25/1997 Orders Only Carlos Penny MD [facility] [address] [facility], [address] Social History Tobacco Use Types Packs/Day Years Used Date Smoking Tobacco: Never Assessed Sex and Gender Information Value Date Recorded Sex Assigned at Not on file Gender Identity Not on file Sexual Orientation Not on file documented as of this encounter Plan of Treatment Not on file documented as of this encounter Visit Diagnoses Not on filedocumented in this encounter Care Teams Cover Inspector Relationship Specialty Start Date End Date Chirag Metzger PA-C [address] [place] [address] PCP - General Physician Peoplesoft Fscm Developer 07/06/16 documented as of this encounter
--- OUTSIDE RECORDS SUMMARY | 2023-12-31 07:12 | XMS_ITS | Encounter Summary ---
Author Organization [facility] Address [address] [place] [address] Care Team Providers Care Needle Valve Operator Name Role Phone Chirag Metzger PA-C Primary Care Provider [phone] Encounter Details Date Type Department Care Team (Latest Contact Info) Description 05/18/1997 Orders Only Isrrael Arias MD [address] [place] [address] Social History Tobacco Use Types Packs/Day Years Used Date Smoking Tobacco: Never Assessed Sex and Gender Information Value Date Recorded Sex Assigned at Not on file Gender Identity Not on file Sexual Orientation Not on file documented as of this encounter Plan of Treatment Not on file documented as of this encounter Visit Diagnoses Not on filedocumented in this encounter Care Teams Needle Valve Operator Relationship Specialty Start Date End Date Chirag Metzger PA-C [address] [place] [address] PCP - General Physician Enrollment Clerk 07/06/16 documented as of this encounter
--- OUTSIDE RECORDS SUMMARY | 2023-12-31 07:12 | XMS_ITS | Encounter Summary ---
Author Organization [facility] Address [address] [place] [address] Care Team Providers Care Recruiting Scheduler Name Role Phone Chirag Metzger PA-C Primary Care Provider [phone] Encounter Details Date Type Department Care Team (Latest Contact Info) Description 11/03/1999 Orders Only Keya Gay MD [address] [place] [address] Social History Tobacco Use Types Packs/Day Years Used Date Smoking Tobacco: Never Assessed Sex and Gender Information Value Date Recorded Sex Assigned at Not on file Gender Identity Not on file Sexual Orientation Not on file documented as of this encounter Plan of Treatment Not on file documented as of this encounter Visit Diagnoses Not on filedocumented in this encounter Care Teams Recruiting Scheduler Relationship Specialty Start Date End Date Chirag Metzger PA-C [address] [place] [address] PCP - General Physician Epic Specialist 07/06/16 documented as of this encounter
--- NOTE | 2023-12-31 08:30 | W.ANESCHARGE ---
Anesthesia Charges Start Date/Time Anesthesia Start Date: 12/31/23 Anesthesia Start Time: 08:01 Stop Date/Time Anesthesia Stop Date: 12/31/23 Anesthesia Stop Time: 08:27
--- NOTE | 2023-12-31 09:00 | W.ANESCHARGE ---
Anesthesia Charges Start Date/Time Anesthesia Start Date: 12/31/23 Anesthesia Start Time: 08:01 Stop Date/Time Anesthesia Stop Date: 12/31/23 Anesthesia Stop Time: 08:27
== END 2023-12-31 07:10 | disposition home or self-care (01) ==
LOC: OP CLINIC 07:10
PROVIDERS: PCP Physician Assistant Medical; Visit Provider Internal Medicine
DX: R93.3 Abnormal findings on diagnostic imaging of other parts of digestive tract (principal); K57.30 Diverticulosis of large intestine without perforation or abscess without bleeding
CPT/HCPCS: 00811; 00812; 45378; J1885; J2704

== ENCOUNTER 2024-03-04 19:10 | Outpatient (CLI) | payer BC, SELFPAY ==
--- NOTE | 2024-03-04 19:00 | CRLHL7_ITS ---
For Patients: As a result of the Cures Act, medical imaging exams and procedure reports are released immediately into your electronic medical record. You may view this report before your referring provider. If you have questions, please contact your health care provider. BILATERAL SCREENING MAMMOGRAM WITH COMPUTER-AIDED DETECTION AND TOMOSYNTHESIS TECHNIQUE: CC and MLO views were obtained. These mammographic images have been obtained using full-field digital technique. These mammographic images were interpreted with the benefit of computer-aided detection. Breast Tomosynthesis was used in this interpretation. COMPARISON FILM: 04/25/21, 03/20/18, 02/21/17. FINDINGS: There are scattered areas of fibroglandular density IMPRESSION: There is no radiographic evidence for malignancy. ASSESSMENT: BI-RADS Category 1: Negative RECOMMENDATION: Routine screening mammogram in 1 year. A lay language report of this examination will be provided to the patient. Deshawn Leger M.D. Diagnostic Radiologist [email or web address] KAYDEN/juan a Transcribed: 2:52 p.mMahnaz velazco/Dictated by: Deshawn Leger MD @ 03/10/2024 11:56:00 AM (Electronically Signed)
--- OUTSIDE RECORDS SUMMARY | 2024-03-04 19:12 | XMS_ITS | Encounter Summary ---
Author Organization [facility] Address [address] [place] [address] Care Team Providers Care Direct Marketing Coordinator Name Role Phone Chirag Metzger PA-C Primary Care Provider [phone] Encounter Details Date Type Department Care Team (Late st Contact Info) Description 09/17/2012 Correspondence [facility] [address] [facility] [address] Enoc Blanca DC CHIROPRACTIC PT LIABILITY [...] on filedocumented in this encounter Care Teams Direct Marketing Coordinator Relationship Specialty Start Date End Date Chirag Metzger PA-C [facility] [place] [address] [address] PCP - General Physician Publication Director 07/06/16 documented as of this encounter
--- OUTSIDE RECORDS SUMMARY | 2024-03-04 19:12 | XMS_ITS | Continuity of Care Document ---
Author Organization [facility] Address [address] [facility] [place] [address] Phone Care Team Providers Care Tactical Debriefer Name Role Phone Will Vlad BENÍTEZ Unavailable [...] Diagnoses Date Provider Providers Copied on Encounter [facility], [address] [place] [address] Magali Raines [place], [id number] , [place] [phone] [facility] [place] No Information 2 Will Vlad. [address] [place] [address] [place], [place], [id number] , [place]. tel:[phone] OFFICE/OUTPAT IENT VISIT, [facility], [address] [place] [address] [place], [id number] , [place] tel:[phone] [facility] [place] left knee pain (chief complaint) Other chronic postprocedural painPain in left kneeFibromyalgiaL joni term (current) use of opiate analgesic 9 Ludy Jarrett. [address] [place] [address] [address], [place], [place], [id number] , [place]. [phone] Referring Provider: Simona Mendez[address], [address]. tel:[phone] [facility], [address] [place] [address] [place], [id number] , [place] tel:[phone] [facility] [place] No Information 9 Will Vlad. [address] [place] [address] [place], [place], [id number] , [place]. tel:[phone] Referring Provider: Simona Mendez[address], [address]. tel:[phone] OFFICE/OUTPAT IENT VISIT, [facility], [address] [place] [address] [place], [place], [id number] , [place] [phone] [facility] [place] left knee pain (chief complaint) Other chronic postprocedural painPain in left kneeFibromyalgiaL joni term (current) use of opiate analgesic 9 Bostonjoshua Jarrett. [address] [place] [address] [address], [place], [place], [id number] , [place]. tel: [phone] Referring Provider: Simona Mendez, [facility] And [address], [address]. tel:[phone] OFFICE/OUTPAT IENT VISIT, [facility], [address] [place], [place], [id number] , [place] tel: [phone] [facility] [place] right knee pain (chief complaint) Other chronic postprocedural painPain in left kneeFibromyalgiaL joni term (current) use of opiate analgesic 9 Ludy Jarrett. [address] [place] [address] [address], [place], [place], [id number] , [place]. tel: [phone] Referring Provider: Simona Mendez[address], [facility]. tel: [phone] OFFICE/OUTPAT IENT VISIT, [facility], [address] [place], [place], [id number] , [place] tel: [phone] [facility] right knee pain (chief complaint) Other chronic postprocedural painPain in left kneeFibromyalgiaL joni term (current) use of opiate analgesic 9 Bostonjoshua Jarrett. [address] [place] [address] [address], [place], [place], [id number] , [place]. tel: [phone] Referring Provider: Simona Mendez, [facility] And [address], [address]. tel:[phone] OFFICE/OUTPAT IENT VISIT, [facility], [address] [place] [address], [id number] , [place] tel: [phone] [facility] right knee pain (chief complaint) Other chronic postprocedural painPain in left kneeLong term (current) use of opiate analgesicFibromya lgia 9 Ludy Jarrett. [address] [place] [address] [address], [place], [place], [id number] , [place]. tel:[phone] Referring Provider: [facility] And [address], [facility]. tel:[phone] OFFICE/OUTPAT IENT VISIT, [facility], [address] [place] [address], [id number] , [place] tel:[phone] [facility] right knee pain (chief complaint) Other chronic postprocedural painPain in left kneeLong term (current) use of opiate analgesic May- 5-201 9 Boston Kolby. [address] [place] [address] [address] [facility] [address], [place], [place], [id number] , [place]. tel:[phone] Referring Provider: [facility] And [address], [facility]. tel:[phone] OFFICE/OUTPAT IENT VISIT, [facility], [address] [place] [address], [id number] , [place] tel:[phone] [facility] right knee pain (chief complaint) Other chronic postprocedural painPain in left kneeLong term (current) use of opiate analgesic Apr-1 7-201 9 Boston Kolby. [address] [place] [address] 11 [facility] [address], [place], [place], [id number] , [place]. tel: [phone] Referring Provider: [facility] And [address], [facility]. tel:[phone] OFFICE/OUTPAT IENT VISIT, [facility], [address] [place] [address], [id number] , [place] tel:[phone] [facility] right knee pain (chief complaint) Pain in left kneeOther chronic postprocedural painLong term (current) use of opiate analgesic Apr-0 3-201 9 Liset Casiano. [facility], [address] [place] [address] [address] [facility] [address], [place], [address], [place]. tel: [phone] Referring Provider: Simona Mendez, [facility] [address] [place] [address], [address]. tel:[phone] OFFICE/OUTPAT IENT VISIT, [facility], [address] [place] [address], [id number] , [place] tel: [phone] [facility] Leg Pain (chief complaint) Pain in left kneeLong term (current) use of opiate analgesicHeadache Mar-2 0-201 9 Hutchins Oh. [facility], [address], [place], [address], [place]. tel: [phone] Referring Provider: Simona Mendez[address], [facility]. tel:[phone] OFFICE/OUTPAT IENT VISIT, [facility], [address] [place] [address], [id number] , [place] tel: [phone] [facility] Leg Pain (chief complaint) Pain in left kneePain in left legLong term (current) use of opiate analgesic Mar-0 6-201 9 Ludy Jarrett. [address] [place] [address] [address], [place], [place], [id number] , [place]. tel: [phone] Referring Provider: Simona Mendez, [address], [address]. tel:[phone] OFFICE CONSULTATION [facility], [address] [place] [address], [id number] , [place] tel: [phone] [facility] Leg Pain (chief complaint) Pain in left kneePain in left legLong term (current) use of opiate analgesicEncounte r for therapeutic drug level monitoring Feb-2 0-201 9 [place]ins [place]. [facility], [address], [place], [address], [place]. tel:[phone] Referring Provider: Simona Mendez [facility] [address] [place] [address], [address]. 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 [facility] case maker recommended she double up" on all medications including Cymbalta, Gabapentin, and oxycodone.Has started PT ar [facility] with some benefit. [facility] physical therapist recommended TENS unit Rx for [...] Pain today is fluctuating. Recently returned from [place] which has aggravated her pain. Additionally c/o [...] activity while traveling. Was recently seen by case maker and started Cymbalta-- has not yet experienced notable benefit. Shake Loader has also ordered PT which patient intends [...] L anterior thigh. Recently was seen by case maker at [facility] who has advised Cymbalta for DOCKETING SPECIALIST hypersensitivity which she intends on trialling soon.Patient [...] second orthopedic opinion with Dr. Perez at [facility] regarding her ongoing L knee pain following arthroscopy procedure in Mar. She was given a cortisone injection on Sun. by [facility] for inflammation. Additionally had updated MRI which showed no ligament or bone deformities. [facility] recommended she meet with case maker which she plans on doing so in [...] There are no pertinent negatives. Leg Pain (comments) Keara is he re [...] pain, referred by Emanuel Gill MD at [facility] . Her pain began 3 months ago s/p L knee arthroscopy. Reports she initially experienced allodynia, temperature changes, and swelling although these sxs have improved. Current pain is intermittent and varies depending on level of swelling, and activity. Expresses frustration regarding her pain as it inhibits ability to walk and participate in normal activities. Underwent PT at [facility] from 12/2017-05/2018--helpful. Trialed L knee cortisone injection at [facility] which was helpful for approximately one [...] and other recommended therapies and would like [facility] to assume management of pain care. Functional Status Date Functional Assessmen t No Information Instructions Date Instruction Additional Infor mation No Information Assessments Type Assessment Date No Information Patient Care Teams Name Effective Dates (start - stop) Status Members No Information
--- OUTSIDE RECORDS SUMMARY | 2024-03-04 19:12 | XMS_ITS | Encounter Summary ---
Author Organization [facility] Address [address] [place] [address] Care Team Providers Care Sales Operations Assistant Name Role Phone Chirag Metzger PA-C Primary Care Provider [phone] Encounter Details Date Type Department Care Team (Latest Contact Info) Description 09/02/1999 Orders Only Andrew Pappas MD [address] [place] [address] Social History Tobacco Use Types Packs/Day Years Used Date Smoking Tobacco: Never Assessed Sex and Gender Information Value Date Recorded Sex Assigned at Not on file Gender Identity Not on file Sexual Orientation Not on file documented as of this encounter Plan of Treatment Not on file documented as of this encounter Visit Diagnoses Not on filedocumented in this encounter Care Teams Sales Operations Assistant Relationship Specialty Start Date End Date Chirag Metzger PA-C [address] [place] [address] PCP - General Physician Photovoltaic Fabrication Technician 07/06/16 documented as of this encounter
--- OUTSIDE RECORDS SUMMARY | 2024-03-04 19:12 | XMS_ITS | Encounter Summary ---
Author Organization [facility] Address [address] [place] [address] Care Team Providers Care Grizzlyman Name Role Phone Chirag Metzger PA-C Primary Care Provider [phone] Encounter Details Date Type Department Care Team [...] on filedocumented in this encounter Care Teams Grizzlyman Relationship Specialty Start Date End Date Chirag Metzger PA-C [address] [place] [address] PCP - General Physician Auto Mechanic 07/06/16 documented as of this encounter
--- OUTSIDE RECORDS SUMMARY | 2024-03-04 19:12 | XMS_ITS | Encounter Summary ---
Author Organization [facility] Address [address] [place] [address] Care Team Providers Care Retail Key Holder Name Role Phone Chirag Metzger PA-C Primary Care Provider [phone] Encounter Details Date Type Department Care Team (Latest Contact Info) Description 08/12/1997 Orders Only Marco Schaffer [facility] [address] [facility], [id number] Social History Tobacco Use Types Packs/Day Years Used Date Smoking Tobacco: Never Assessed Sex and Gender Information Value Date Recorded Sex Assigned at Not on file Gender Identity Not on file Sexual Orientation Not on file documented as of this encounter Plan of Treatment Not on file documented as of this encounter Visit Diagnoses Not on filedocumented in this encounter Care Teams Retail Key Holder Relationship Specialty Start Date End Date Chirag Metzger PA-C [address] [place] [address] PCP - General Physician Spool Maker 07/06/16 documented as of this encounter
--- OUTSIDE RECORDS SUMMARY | 2024-03-04 19:12 | XMS_ITS | Encounter Summary ---
Author Organization [facility] Address [address] [place] [address] Care Team Providers Care Mixer Operator Hot Metal Name Role Phone Chirag Metzger PA-C Primary Care Provider [phone] Encounter Details Date Type Department Care Team (Latest Contact Info) Description 11/05/1997 Orders Only Marco Schaffer [facility] [address] [facility], [id number] Social History Tobacco Use Types Packs/Day Years Used Date Smoking Tobacco: Never Assessed Sex and Gender Information Value Date Recorded Sex Assigned at Not on file Gender Identity Not on file Sexual Orientation Not on file documented as of this encounter Plan of Treatment Not on file documented as of this encounter Visit Diagnoses Not on filedocumented in this encounter Care Teams Mixer Operator Hot Metal Relationship Specialty Start Date End Date Chirag Metzger PA-C [address] [place] [address] PCP - General Physician Endoscopy Tech 07/06/16 documented as of this encounter
--- OUTSIDE RECORDS SUMMARY | 2024-03-04 19:12 | XMS_ITS | Encounter Summary ---
Author Organization [facility] Address [address] [place] [address] Care Team Providers Care Varnishing Machine Operator Name Role Phone Chirag Metzger PA-C Primary Care Provider [phone] Encounter Details Date Type Department Care Team (Latest Contact Info) Description 11/03/1999 Orders Only Keya Gay MD [address] [place] [address] Social History Tobacco Use Types Packs/Day Years Used Date Smoking Tobacco: Never Assessed Sex and Gender Information Value Date Recorded Sex Assigned at Not on file Gender Identity Not on file Sexual Orientation Not on file documented as of this encounter Plan of Treatment Not on file documented as of this encounter Visit Diagnoses Not on filedocumented in this encounter Care Teams Varnishing Machine Operator Relationship Specialty Start Date End Date Chirag Metzger PA-C [address] [place] [address] PCP - General Physician Fiberglass Finisher 07/06/16 documented as of this encounter
--- OUTSIDE RECORDS SUMMARY | 2024-03-04 19:12 | XMS_ITS | Clinical Summary ---
Author Organization [facility] Address [address] [place] [address] Care Team Providers Care Machine Stripper Cutter Name Role Phone Chirag Metzger PA-C Primary Care Provider [phone] Source Comments You are receiving this document as you are listed as the primary care provider,follow-up provider, or the patient has been referred to you for consultation.This is in compliance with the Medicare andGrant Hospital[employer] EHR Incentive Program,which states Providers who transition their patient to another setting of careor provider of care or refers their patient to another provider of care shouldprovide summary care record for each transition of care or referral. [facility] Allergies No known active allergies Medications Medication [...] Spasm of back muscles 04/03/2016 Obese 09/17/2013 Overview (12/23/2015): Currently working with obesity clinic. Migraine, chronic, without a ura, intractable, with status migrainosus 09/20/2012 Assessment & Plan (02/04/2014 3:07 PM CDT): She has had a typical migraine, symptom-cole, [...] glare, and taking her rizatriptan. Syncope, psychogenic Overview (12/23/2015): stress reaction Assessment & Plan (08/17/2011 3:47 PM CDT): Several years ago, she had pre-syncopal episodes [...] Cervical (neck) region somatic dysfunction 10/19/2014 04/03/2016 Overview (02/18/2015): Epic Nonallopathic lesion of thoracic region 10/19/2014 04/03/2016 Overview (02/18/2015): Epic Somatic dysfunction of sacral region 10/19/2014 04/03/2016 Overview (02/18/2015): Epic Cervicalgia 10/19/2014 04/03/2016 Spasm of muscle 10/19/2014 04/03/2016 Sprain of sacrum 08/12/2014 10/19/2014 Sprain of thoracic region 08/12/2014 Sprain of neck 08/12/2014 10/19/2014 Nonallopathic lesion of thoracic region 02/20/2012 10/19/2014 Overview (02/18/2015): Epic Nonallopathic lesion of cervical region 02/20/2012 10/19/2014 Overview (01/10/2017): Epic ; Other nonallopathic lesion of cervical region Spasm of muscle 02/20/2012 10/19/2014 Sciatica 02/20/2012 08/21/2012 Sciatica 12/07/2011 02/20/2012 Spasm of muscle 12/07/2011 02/20/2012 Nonallopathic lesion of sacral region 10/31/2011 10/19/2014 Overview (02/18/2015): Epic Sciatica 10/31/2011 12/07/2011 Spasm of muscle 10/31/2011 12/07/2011 Fibroid uterus 11/04/2014 Overview (12/23/2015): s/p hysterectomy 2006 Immunizations Name Administration Dates Next Due Flu Vac (3+ yrs) 04/10/2000 Influenza IIV4 (Quadrivalent ) 0.5mL (70716) 04/05/2017,03/02/2015,02/02/2015,2013 Influenza, Unspecified Formulation 04/14/2016(De ferred: Other),03/04/2013 [...] 156.2 cm (5' 1.5) 07/06/2016 8:17 AM VASCULAR TECHNOLOGIST SONOGRAPHER Body Mass Index 39.41 07/06/2016 8:17 AM VASCULAR TECHNOLOGIST SONOGRAPHER Plan of Treatment Health Maintenance Due Date [...] - Tdap) 08/16/2021 08/17/19 12, 08/17/2011, 05/20/1995 Cholesterol 03/06/2023 03/06/2018, 06/21, 01/13/2015, Additional history exists COVID-19 Vaccine ( season) 2024 05/03/2021, 06/22/2020, 06/01/2020 Influenza (#1) 2024 03/29/2022, 03/21, 04/14/2016, Additional history exists HepA Aged Out No longer eligi ble based on patient's age to complete this topic Hib Aged Out No longer eligi ble based on patient's age to complete this topic IPV (Polio) Aged Out No longer eligi ble based on patient's age to complete this topic Infant RSV Aged Out No longer eligi ble based [...] - 03/06/2018 6:59 PM CDT Performed at [facility], [address] [place] [address] CLIA number [id number] Chirag Metzger PA-C LAB_1 PN SOFT [address] [place], [place] [address] * Pap Smear (03/06/2018 2:57 PM CDT) 03/06/2018 2:57 PM CDT Narrative PN SOFT - 03/23/2018 9:23 AM CDT FINAL GYNECOLOGICAL CYTOLOGY REPORT Pathology #: [id number] ?Date Obtained: 03/06/2018 ? Date Received: 03/07/2018 [...] and false-negative reports may occur. Performed at [facility], [address] [place] [address] Chirag Metzger PA-C LAB_1 PN SOFT [address] [place], [place] [address] from Last 3 Months or Most Recently Relevant to Health Maintenance Care Teams Machine Stripper Cutter Relationship Specialty Start Date End Date Chirag Metzger PA-C [facility] [address] [place], [place] [id number] PCP - General Physician Police Patrol Officer 07/06/16
--- OUTSIDE RECORDS SUMMARY | 2024-03-04 19:12 | XMS_ITS | Encounter Summary ---
Author Organization [facility] Address [address] [place] [address] Care Team Providers Care Therapist Occupational Name Role Phone Chirag Metzger PA-C Primary Care Provider [phone] Encounter Details Date Type Department Care Team (Latest Contact Info) Description 01/06/2000 Orders Only Luis Fernando Dc MD [address] [place] [address] Social History Tobacco Use Types Packs/Day Years Used Date Smoking Tobacco: Never Assessed Sex and Gender Information Value Date Recorded Sex Assigned at Not on file Gender Identity Not on file Sexual Orientation Not on file documented as of this encounter Plan of Treatment Not on file documented as of this encounter Visit Diagnoses Not on filedocumented in this encounter Care Teams Therapist Occupational Relationship Specialty Start Date End Date Chirag Metzger PA-C [address] [place] [address] PCP - General Physician Dock Hand 07/06/16 documented as of this encounter
--- OUTSIDE RECORDS SUMMARY | 2024-03-04 19:12 | XMS_ITS | Encounter Summary ---
Author Organization [facility] Address [address] [place] [address] Care Team Providers Care X Ray Control Equipment Repairer Name Role Phone Chirag Metzger PA-C Primary Care Provider [phone] Encounter Details Date Type Department Care Team (Late st Contact Info) Description 10/31/2011 Correspondence [facility] [address] [facility] [address] Enoc Blanca DC CHIROPRACTIC PT [...] on filedocumented in this encounter Care Teams X Ray Control Equipment Repairer Relationship Specialty Start Date End Date Chirag Metzger PA-C [address] [place] [address] PCP - General Physician Facility Service Associate 07/06/16 documented as of this encounter
--- OUTSIDE RECORDS SUMMARY | 2024-03-04 19:12 | XMS_ITS | Encounter Summary ---
Author Organization [facility] Address [address] [place] [address] Care Team Providers Care Imaging Clerk Name Role Phone Chirag Metzger PA-C Primary Care Provider [phone] Encounter Details Date Type Department Care Team (Latest Contact Info) Description 12/20/1999 Orders Only Andrew Pappas MD [address] [place] [address] Social History Tobacco Use Types Packs/Day Years Used Date Smoking Tobacco: Never Assessed Sex and Gender Information Value Date Recorded Sex Assigned at Not on file Gender Identity Not on file Sexual Orientation Not on file documented as of this encounter Plan of Treatment Not on file documented as of this encounter Visit Diagnoses Not on filedocumented in this encounter Care Teams Imaging Clerk Relationship Specialty Start Date End Date Chirag Metzger PA-C [address] [place] [address] PCP - General Physician Community Assistant 07/06/16 documented as of this encounter
--- OUTSIDE RECORDS SUMMARY | 2024-03-04 19:12 | XMS_ITS | Encounter Summary ---
Author Organization [facility] Address [address] [place] [address] Care Team Providers Care Strategic Sourcing Specialist Name Role Phone Chirag Metzger PA-C Primary Care Provider Encounter Details Date Type Department Care Team (Latest Contact Info) Description 07/01/1999 Orders Only Keya Gay MD [address] [place] [address] Social History Tobacco Use Types Packs/Day Years Used Date Smoking Tobacco: Never Assessed Sex and Gender Information Value Date Recorded Sex Assigned at Not on file Gender Identity Not on file Sexual Orientation Not on file documented as of this encounter Plan of Treatment Not on file documented as of this encounter Visit Diagnoses Not on filedocumented in this encounter Care Teams Strategic Sourcing Specialist Relationship Specialty Start Date End Date Chirag Metzger PA-C [address] [place] [address] PCP - General Physician Exhibit Technician 07/06/16 documented as of this encounter
--- OUTSIDE RECORDS SUMMARY | 2024-03-04 19:12 | XMS_ITS | Encounter Summary ---
Author Organization [facility] Address [address] [place] [address] Care Team Providers Care Roller Hand Name Role Phone Chirag Metzger PA-C Primary Care Provider [phone] Encounter Details Date Type Department Care Team (Latest Contact Info) Description 08/22/1999 Orders Only Luis Fernando Dc MD [address] [place] [address] Social History Tobacco Use Types Packs/Day Years Used Date Smoking Tobacco: Never Assessed Sex and Gender Information Value Date Recorded Sex Assigned at Not on file Gender Identity Not on file Sexual Orientation Not on file documented as of this encounter Plan of Treatment Not on file documented as of this encounter Visit Diagnoses Not on filedocumented in this encounter Care Teams Roller Hand Relationship Specialty Start Date End Date Chirag Metzger PA-C [address] [place] [address] PCP - General Physician Barrel Brander 07/06/16 documented as of this encounter
--- OUTSIDE RECORDS SUMMARY | 2024-03-04 19:12 | XMS_ITS | Encounter Summary ---
Author Organization [facility] Address [address] [place] [address] Care Team Providers Care Route Driver Coin Machines Name Role Phone Chirag Metzger PA-C Primary Care Provider [phone] Encounter Details Date Type Department Care Team (Latest Contact Info) Description 12/16/1999 Orders Only [facility] [employer] [place] [address] Social History Tobacco Use Types Packs/Day Years Used Date Smoking Tobacco: Never Assessed Sex and Gender Information Value Date Recorded Sex Assigned at Not on file Gender Identity Not on file Sexual Orientation Not on file documented as of this encounter Plan of Treatment Not on file documented as of this encounter Visit Diagnoses Not on filedocumented in this encounter Care Teams Route Driver Coin Machines Relationship Specialty Start Date End Date Chirag Metzger PA-C [address] [place] [address] PCP - General Physician Sash Installer 07/06/16 documented as of this encounter
--- OUTSIDE RECORDS SUMMARY | 2024-03-04 19:13 | XMS_ITS | Encounter Summary ---
Author Organization [facility] Address [address] [place] [address] Care Team Providers Care Lead Level Designer Name Role Phone Chirag Metzger PA-C Primary Care Provider [phone] Encounter Details Date Type Department Care Team (Latest Contact Info) Description 12/14/1995 Orders Only Julianna De Leon MD [address] [place] [address] Social History Tobacco Use Types Packs/Day Years Used Date Smoking Tobacco: Never Assessed Sex and Gender Information Value Date Recorded Sex Assigned at Not on file Gender Identity Not on file Sexual Orientation Not on file documented as of this encounter Plan of Treatment Not on file documented as of this encounter Visit Diagnoses Not on filedocumented in this encounter Care Teams Lead Level Designer Relationship Specialty Start Date End Date Chirag Metzger PA-C [address] [place] [address] PCP - General Physician Hard Hat Diver 07/06/16 documented as of this encounter
--- OUTSIDE RECORDS SUMMARY | 2024-03-04 19:13 | XMS_ITS | Encounter Summary ---
Author Organization [facility] Address [address] [place] [address] Care Team Providers Care Production Assistant Name Role Phone Chirag Metzger PA-C Primary Care Provider [phone] Encounter Details Date Type Department Care Team [...] filedocumented in this encounter Care Teams Production Assistant Relationship Specialty Start Date End Date Chirag Metzger PA-C [address] [place] [address] PCP - General Physician Electric Pile Driver Operator 07/06/16 documented as of this encounter
--- OUTSIDE RECORDS SUMMARY | 2024-03-04 19:13 | XMS_ITS | Encounter Summary ---
Author Organization [facility] Address [address] [place] [address] Care Team Providers Care Cafeteria Assistant Name Role Phone Chirag Metzger PA-C [...] on filedocumented in this encounter Care Teams Cafeteria Assistant Relationship Specialty Start Date End Date Chirag Metzger PA-C [facility] [place] [address] [address] PCP - General Physician Foreman/Project Manager 07/06/16 documented as of this encounter
--- OUTSIDE RECORDS SUMMARY | 2024-03-04 19:13 | XMS_ITS | Encounter Summary ---
Author Organization [facility] Address [address] [place] [address] Care Team Providers Care Acute Care Clinical Nurse Specialist Name Role Phone Chirag Metzger PA-C Primary Care Provider [phone] Encounter Details Date Type Department Care Team (Latest Contact Info) Description 10/22/1995 Orders Only Andrew Pappas MD [address] [place] [address] Social History Tobacco Use Types Packs/Day Years Used Date Smoking Tobacco: Never Assessed Sex and Gender Information Value Date Recorded Sex Assigned at Not on file Gender Identity Not on file Sexual Orientation Not on file documented as of this encounter Plan of Treatment Not on file documented as of this encounter Visit Diagnoses Not on filedocumented in this encounter Care Teams Acute Care Clinical Nurse Specialist Relationship Specialty Start Date End Date Chirag Metzger PA-C [address] [place] [address] PCP - General Physician Orchard Hand 07/06/16 documented as of this encounter
--- OUTSIDE RECORDS SUMMARY | 2024-03-04 19:13 | XMS_ITS | Encounter Summary ---
Author Organization [facility] Address [address] [place] [address] Care Team Providers Care Ampoule Inspector Name Role Phone Chirag Metzger PA-C Primary Care Provider [phone] Encounter Details Date Type Department Care Team (Latest Contact Info) Description 05/18/1997 Orders Only Isrrael Arias MD [address] [place] [address] Social History Tobacco Use Types Packs/Day Years Used Date Smoking Tobacco: Never Assessed Sex and Gender Information Value Date Recorded Sex Assigned at Not on file Gender Identity Not on file Sexual Orientation Not on file documented as of this encounter Plan of Treatment Not on file documented as of this encounter Visit Diagnoses Not on filedocumented in this encounter Care Teams Ampoule Inspector Relationship Specialty Start Date End Date Chirag Metzger PA-C [address] [place] [address] PCP - General Physician President + Publisher 07/06/16 documented as of this encounter
--- OUTSIDE RECORDS SUMMARY | 2024-03-04 19:13 | XMS_ITS | Encounter Summary ---
Author Organization [facility] Address [address] [place] [address] Care Team Providers Care Fundraising Coordinator Name Role Phone Chirag Metzger PA-C Primary Care Provider [phone] Encounter Details Date Type Department Care Team (Latest Contact Info) Description 08/29/1994 Orders Only Sahil Plunkett, [facility] ENDODONTICS [facility] [address] [place] [address] Social History Tobacco Use Types Packs/Day Years Used Date Smoking Tobacco: Never Assessed Sex and Gender Information Value Date Recorded Sex Assigned at Not on file Gender Identity Not on file Sexual Orientation Not on file documented as of this encounter Plan of Treatment Not on file documented as of this encounter Visit Diagnoses Not on filedocumented in this encounter Care Teams Fundraising Coordinator Relationship Specialty Start Date End Date Chirag Metzger PA-C [address] [place] [address] PCP - General Physician Blending Tank Tender Helper 07/06/16 documented as of this encounter
--- OUTSIDE RECORDS SUMMARY | 2024-03-04 19:13 | XMS_ITS | Encounter Summary ---
Author Organization [facility] Address [address] [place] [address] Care Team Providers Care Etl Database Developer Name Role Phone Chirag Metzger PA-C Primary Care Provider [phone] Encounter Details Date Type Department Care Team (Latest Contact Info) Description 03/25/1997 Orders Only Carlos Penny MD [facility] [address] [facility], [address] Social History Tobacco Use Types Packs/Day Years Used Date Smoking Tobacco: Never Assessed Sex and Gender Information Value Date Recorded Sex Assigned at Not on file Gender Identity Not on file Sexual Orientation Not on file documented as of this encounter Plan of Treatment Not on file documented as of this encounter Visit Diagnoses Not on filedocumented in this encounter Care Teams Etl Database Developer Relationship Specialty Start Date End Date Chirag Metzger PA-C [address] [place] [address] PCP - General Physician Director Of Audiology 07/06/16 documented as of this encounter
--- OUTSIDE RECORDS SUMMARY | 2024-03-04 19:13 | XMS_ITS | Encounter Summary ---
Author Organization [facility] Address [address] [place] [address] Care Team Providers Care Communications Technologist Name Role Phone Chirag Metzger PA-C Primary Care Provider [phone] Encounter Details Date Type Department Care Team (Latest Contact Info) Description 10/01/1995 [place] [address] [place] [address] Social History Tobacco Use Types Packs/Day Years Used Date Smoking Tobacco: Never Assessed Sex and Gender Information Value Date Recorded Sex Assigned at Not on file Gender Identity Not on file Sexual Orientation Not on file documented as of this encounter Plan of Treatment Not on file documented as of this encounter Visit Diagnoses Not on filedocumented in this encounter Care Teams Communications Technologist Relationship Specialty Start Date End Date Chirag Metzger PA-C [address] [place] [address] PCP - General Physician Motion Picture Film Examiner 07/06/16 documented as of this encounter
--- OUTSIDE RECORDS SUMMARY | 2024-03-04 19:13 | XMS_ITS | Encounter Summary ---
Author Organization [facility] Address [address] [place] [address] Care Team Providers Care Automobile Service Station Manager Name Role Phone Chirag Metzger PA-C Primary Care Provider [phone] Encounter Details Date Type Department Care Team (Latest Contact Info) Description 04/20/1997 Orders Only Morenita Fink MD [address] [place] [address] Social History Tobacco Use Types Packs/Day Years Used Date Smoking Tobacco: Never Assessed Sex and Gender Information Value Date Recorded Sex Assigned at Not on file Gender Identity Not on file Sexual Orientation Not on file documented as of this encounter Plan of Treatment Not on file documented as of this encounter Visit Diagnoses Not on filedocumented in this encounter Care Teams Automobile Service Station Manager Relationship Specialty Start Date End Date Chirag Metzger PA-C [address] [place] [address] PCP - General Physician Lamp Shade Assembler 07/06/16 documented as of this encounter
--- OUTSIDE RECORDS SUMMARY | 2024-03-04 19:13 | XMS_ITS | Encounter Summary ---
Author Organization [facility] Address [address] [place] [address] Care Team Providers Care Solid Center Winder Name Role Phone Chirag Metzger PA-C Primary Care Provider [phone] Encounter Details Date Type Department Care Team [...] on filedocumented in this encounter Care Teams Solid Center Winder Relationship Specialty Start Date End Date Chirag Metzger PA-C [address] [place] [address] PCP - General Physician Wool Hanker 07/06/16 documented as of this encounter
== END 2024-03-04 19:11 | disposition home or self-care (01) ==
LOC: MAMMO 19:11
PROVIDERS: PCP Physician Assistant Medical; Visit Provider Physician Assistant Medical
DX: Z12.31 Encounter for screening mammogram for malignant neoplasm of breast (principal)
CPT/HCPCS: 77063; 77067

== ENCOUNTER 2024-10-22 12:15 | Outpatient (CLI) | payer OTHER, SELFPAY | END 2024-10-22 12:16 | disposition home or self-care (01) | PROVIDERS: PCP Physician Assistant Medical; Visit Provider Physician Assistant Medical | DX: E55.9 Vitamin D deficiency, unspecified (principal); R53.83 Other fatigue; R79.82 Elevated C-reactive protein (CRP); R73.09 Other abnormal glucose; E66.9 Obesity, unspecified; I10 Essential (primary) hypertension; N95.1 Menopausal and female climacteric states; Z11.59 Encounter for screening for other viral diseases; Z11.3 Encounter for screening for infections with a predominantly sexual mode of transmission | CPT/HCPCS: 82306; 82627; 82670; 82728; 82746; 83001; 83002; 83520; 84144; 84436; 84439; 84443; 84480; 84481; 84482; 86140; 86376; 86703; 86803 ==

== ENCOUNTER 2024-10-23 10:10 | Outpatient (CLI) | payer SELFPAY | END 2024-10-23 10:11 | disposition home or self-care (01) | LOC: NFLDREF 10-25 07:47 | PROVIDERS: PCP Physician Assistant Medical; Referring Provider Physician Assistant Medical; Visit Provider Physician Assistant Medical | DX: Z00.00 Encounter for general adult medical examination without abnormal findings (principal); N95.1 Menopausal and female climacteric states; E55.9 Vitamin D deficiency, unspecified; R53.83 Other fatigue; R79.82 Elevated C-reactive protein (CRP); E66.9 Obesity, unspecified; I10 Essential (primary) hypertension; Z13.6 Encounter for screening for cardiovascular disorders; Z13.9 Encounter for screening, unspecified | CPT/HCPCS: 80053; 80061; 82533; 82607; 83525; 84403 ==

== ENCOUNTER 2024-11-17 15:00 | Outpatient (CLI) | payer OTHER, SELFPAY | END 2024-11-17 15:01 | disposition home or self-care (01) | LOC: NFLDREF 11-20 23:07 | PROVIDERS: PCP Physician Assistant Medical; Referring Provider Physician Assistant Medical; Visit Provider Physician Assistant Medical | DX: D64.9 Anemia, unspecified (principal); R74.8 Abnormal levels of other serum enzymes | CPT/HCPCS: 80076; 83540; 83550 ==